=== PATIENT | male | born 1965 | race Caucasian/White ===

== ENCOUNTER 2018-01-21 09:19 | Outpatient (CLI) | payer OTHER | END 2018-01-21 09:20 | disposition home or self-care (01) | LOC: SC 09:19 | PROVIDERS: ATTEND Internal Medicine Pulmonary Disease | DX: G47.30 Sleep apnea, unspecified (principal); G47.10 Hypersomnia, unspecified; R06.83 Snoring; R51 Headache; G47.8 Other sleep disorders | CPT/HCPCS: 99203; 99212 ==

== ENCOUNTER 2018-03-12 19:13 | Outpatient (CLI) | payer OTHER | END 2018-03-12 19:14 | disposition home or self-care (01) | LOC: SC 19:13 | PROVIDERS: ATTEND Internal Medicine Pulmonary Disease | DX: G47.33 Obstructive sleep apnea (adult) (pediatric) (principal); G47.61 Periodic limb movement disorder | CPT/HCPCS: 95810 ==

== ENCOUNTER 2018-03-30 00:52 | Inpatient (IN) | payer OTHER ==
[2018-03-30] MEDS ORDERED: IPRATROPIUM/ALBUTEROL 3 ML NEB INH STA (01:06)
--- NOTE | 2018-03-30 01:06 | ED Physician Documentation ---
PD HPI DYSPNEA - Stated complaint Stated Complaint: SOA - Chief complaint Chief Complaint: Resp - History obtained from History obtained from: Patient - History of Present Illness Timing - onset: How many days ago (2) Timing - details: Gradual onset Pain level now: 3 Improved by: Rest Worsened by: Exertion Associated symptoms: Cough. No: Fever, Hemoptysis, Wheezing, Chest pain / discomfort, Palpitations, Diaphoresis, Bilateral edema, Unilateral edema Similar symptoms before: Diagnosis (asthma) Recently seen: Emergency Dept ([facility] yesterday) - Additional information Additional information: seen by his access analyst 2 days ago, had increase in daily prednisone to 30mg PO QD. Seen at [facility] ED last night (midnight) for dyspnea; says no testing was performed, given neb treatments and discharged (chart from seems to indicate he was also prescribed zithromax). He felt better during the day but tonight, again at midnight, suddenly worse (short of breath, cough). He also now has shaking chills. BIBA, given duoneb en route without improvement. Review of Systems Constitutional: reports: Fever (unaware of fever at home, but fever measured during ED triage), Chills, Fatigue Eyes: reports: Reviewed and negative Ears: reports: Reviewed and negative Nose: reports: Reviewed and negative Throat: reports: Reviewed and negative Cardiac: reports: Reviewed and negative Respiratory: reports: Dyspnea, Cough, Wheezing GI: reports: Reviewed and negative : denies: Dysuria, Frequency Skin: reports: Reviewed and negative Musculoskeletal: reports: Reviewed and negative Neurologic: reports: Generalized weakness. denies: Focal weakness, Numbness PD PAST MEDICAL HISTORY - Past Medical History Past Medical History: Yes Respiratory: Asthma - Past Surgical History Past Surgical History: No - Present Medications Home Medications: Ambulatory Orders Medication Instructions Recorded Confirmed Acetaminophen [Tylenol] 650 mg PO Q4HR PRN 03/30/18 03/30/18 Albuterol Sulfate [Proair Hfa 03/30/18 Inhaler] Beclomethasone 40 Mcg [Qvar 40] 03/30/18 Calcium Citrate 600 mg PO DAILY 03/30/18 03/30/18 Cholecalciferol (Vitamin D3) 1 tab PO DAILY 03/30/18 03/30/18 [Vitamin D3] Fexofenadine HCl 90 mg PO DAILY 03/30/18 03/30/18 Fluticasone [Flonase] 03/30/18 Ipratropium [place] 03/30/18 Mometasone/Formoterol [Dulera 200 03/30/18 Mcg/5 Mcg Inhaler] Montelukast [Singulair] 10 mg PO DAILY 03/30/18 03/30/18 Naproxen 1 tab PO Q12H PRN 03/30/18 03/30/18 Telmisartan [Micardis] 03/30/18 Terbinafine [Lamisil] 03/30/18 Tiotropium [place] [Spiriva] 1 cap PO DAILY 03/30/18 03/30/18 predniSONE [Prednisone] 18 mg PO 03/30/18 raNITIdine [Zantac] 1 tab PO DAILY 03/30/18 03/30/18 - Allergies Allergies/Adverse Reactions: Allergies Allergy/AdvReac Type Severity Reaction Status Date / Time aspirin Allergy Unknown Verified 03/30/18 01:00 ibuprofen AdvReac Respiratory Verified 03/30/18 02:46 - Living Situation Living Situation: reports: With spouse/s.o. Living Arrangement: reports: At home - Social History Does the pt smoke?: No PD ED PE NORMAL - Vitals Vital signs reviewed: Yes - General General: Alert and oriented X 3, Well developed/nourished, Other (dyspneic, anxious) - HEENT HEENT: Moist mucous membranes - Neck Neck: Supple, no meningeal sign - Cardiac Cardiac: No murmur - Abdomen Abdomen: Soft, Non tender - Back Back: No CVA TTP - Derm Derm: Normal color, Warm and dry - Extremities Extremities: Other (mild BLE pitting edema) - Neuro Neuro: Alert and oriented X 3 PD ED PE EXPANDED - Cardiac Cardiac: Tachy, Regular Rhythm - Respiratory Respiratory: Rhonchi (bilateral bases) Results - Vitals Vitals: Vital Signs - 24 hr 03/30/18 03/30/18 03/30/18 00:56 01:01 01:14 Temperature 37.0 C 39.1 C H Heart Rate 161 H 160 H 162 H Respiratory 28 H 20 24 Rate Blood Pressure 171/87 H 167/89 H O2 Saturation 96 97 03/30/18 03/30/18 01:33 02:17 Temperature 39.9 C H Heart Rate 163 H 151 H Respiratory 26 H 28 H Rate Blood Pressure 116/69 139/74 H O2 Saturation 95 99 Oxygen O2 Source Nasal cannula Oxygen Flow Rate 2 - EKG (time done) No standard instances Rate: Rate (enter#) Rhythm: Sinus tachycardia (162) [place]: Normal Intervals: Normal HI QRS: Normal Ischemia: Normal ST segments - Labs Labs: Laboratory Tests 03/30/18 03/30/18 03/30/18 01:17 01:17 01:17 WBC 13.3 H RBC 4.78 Hgb 14.4 Hct 43.1 MCV 90.2 MCH 30.1 MCHC 33.4 RDW 13.4 Plt Count 279 MPV 7.2 L Neut # (Auto) 11.7 H Lymph # (Auto) 1.1 L [place] # (Auto) 0.4 Eos # (Auto) 0.0 Baso # (Auto) 0.1 Absolute Nucleated RBC 0.00 Nucleated RBC % 0.0 D-Dimer Sodium 135 Potassium 3.7 Chloride 98 L Carbon Dioxide 27 Anion Gap 10.0 BUN 15 Creatinine 1.0 Estimated GFR (MDRD) 78 L Glucose 118 H Lactic Acid Calcium 9.2 Troponin I < 0.04 Urine Color Urine Clarity Urine pH Ur Specific [place] Urine Protein Urine Glucose (UA) Urine Ketones Urine Occult Blood Urine Nitrite Urine Bilirubin Urine Urobilinogen Ur Leukocyte Esterase Urine RBC Urine WBC Ur Squamous Epith Cells Urine Bacteria Ur Microscopic Review Urine Culture Comments Influenza A (Rapid) Influenza B (Rapid) 03/30/18 03/30/18 03/30/18 01:17 01:17 01:29 WBC RBC Hgb Hct MCV MCH MCHC RDW Plt Count MPV Neut # (Auto) Lymph # (Auto) [place] # (Auto) Eos # (Auto) Baso # (Auto) Absolute Nucleated RBC Nucleated RBC % D-Dimer < 200.0 L Sodium Potassium Chloride Carbon Dioxide Anion Gap BUN Creatinine Estimated GFR (MDRD) Glucose Lactic Acid 2.3 H Calcium Troponin I Urine Color Urine Clarity Urine pH Ur Specific [place] Urine Protein Urine Glucose (UA) Urine Ketones Urine Occult Blood Urine Nitrite Urine Bilirubin Urine Urobilinogen Ur Leukocyte Esterase Urine RBC Urine WBC Ur Squamous Epith Cells Urine Bacteria Ur Microscopic Review Urine Culture Comments Influenza A (Rapid) Negative Influenza B (Rapid) Negative 03/30/18 01:56 WBC RBC Hgb Hct MCV MCH MCHC RDW Plt Count MPV Neut # (Auto) Lymph # (Auto) [place] # (Auto) Eos # (Auto) Baso # (Auto) Absolute Nucleated RBC Nucleated RBC % D-Dimer Sodium Potassium Chloride Carbon Dioxide Anion Gap BUN Creatinine Estimated GFR (MDRD) Glucose Lactic Acid Calcium Troponin I Urine Color YELLOW Urine Clarity CLEAR Urine pH 5.5 Ur Specific [place] 1.025 Urine Protein TRACE Urine Glucose (UA) NEGATIVE Urine Ketones NEGATIVE Urine Occult Blood SMALL H Urine Nitrite NEGATIVE Urine Bilirubin NEGATIVE Urine Urobilinogen 0.2 (NORMAL) Ur Leukocyte Esterase NEGATIVE Urine RBC 0-5 Urine WBC 0-3 Ur Squamous Epith Cells NONE SEEN Urine Bacteria None Seen Ur Microscopic Review INDICATED Urine Culture Comments NOT INDICATED Influenza A (Rapid) Influenza B (Rapid) - Rads (name of study) chest xray Radiology: Prelim report reviewed, See rad report PD MEDICAL DECISION MAKING - ED course Complexity details: reviewed results, re-evaluated patient, considered differential, d/w patient Departure - Departure Disposition: 66 [facility] DC/Xfer Clinical Impression: Bilateral pneumonia Qualifiers: Pneumonia type: due to unspecified organism Lung location: lower lobe of lung Qualified Code(s): J18.1 - Lobar pneumonia, unspecified organism Condition: Stable Discharge Date/Time: 03/30/18 03:28
[2018-03-30] MEDS ORDERED: DEXAMETHASONE 10 MG/ML VIAL IVP STA (01:20)
[2018-03-30] MEDS ORDERED: ACETAMINOPHEN 325 MG TABLET PO STA (01:21)
[2018-03-30 01:28] LABS: BASOPHILS # (AUTO) 0.1 10^3/uL (0.0-0.1); BASOPHILS % (AUTO) 0.7 %; EOSINOPHILS % (AUTO) 0.1 %; HGB - HEMOGLOBIN 14.4 g/dL (14.0-18.0); LYMPHOCYTES # (AUTO) 1.1 10^3/uL (1.5-3.5); LYMPHOCYTES % (AUTO) 8.1 %; MEAN CORPUSCULAR HEMOGLOBIN 30.1 pg (27.0-31.0); MEAN CORPUSCULAR HGB CONC 33.4 g/dL (32.0-36.0); MEAN CORPUSCULAR VOLUME 90.2 fL (80.0-94.0); MEAN PLATELET VOLUME 7.2 fL (7.4-11.4); MONOCYTES # (AUTO) 0.4 10^3/uL (0.0-1.0); MONOCYTES % (AUTO) 3.1 %; NEUTROPHILS # (AUTO) 11.7 10^3/uL (1.5-6.6); PLT - PLATELET COUNT 279 10^3/uL (130-450); RED BLOOD COUNT 4.78 10^6/uL (4.70-6.10); RED CELL DISTRIBUTION WIDTH 13.4 % (12.0-15.0); WHITE BLOOD COUNT 13.3 x10^3/uL (4.8-10.8)
[2018-03-30 01:35] LABS: CALCIUM 9.2 mg/dL (8.5-10.3)
[2018-03-30] MEDS ORDERED: SODIUM CHLORIDE 0.9% 1,000 ML IV ONE (01:59)
[2018-03-30 02:07] LABS: BILIRUBIN,URINE NEGATIVE (NEGATIVE); GLUCOSE, URINE (UA) NEGATIVE (NEGATIVE); KETONES,URINE (UA) NEGATIVE (NEGATIVE); LEUKOCYTE ESTERASE, URINE NEGATIVE (NEGATIVE); NITRITE,URINE NEGATIVE (NEGATIVE); OCCULT BLOOD,URINE SMALL (NEGATIVE); PH,URINE 5.5 PH (5.0-7.5); PROTEIN,URINE TRACE mg/dL (NEGATIVE); UROBILINOGEN,URINE 0.2 (NORMAL) E.U./dL (NORMAL)
--- NOTE | 2018-03-30 02:10 | XRAY Preliminary Report ---
Exam: XR CHEST 2 VIEW X-RAY IMPRESSION: Bibasilar pneumonia. [facility] SITE ID: [id number]
--- NOTE | 2018-03-30 02:10 | XRAY Report ---
EXAM: CHEST RADIOGRAPHY EXAM DATE: 03/30/2018 01:56 AM. CLINICAL HISTORY: Cough, fever, dyspnea. COMPARISON: None. TECHNIQUE: 2 views. FINDINGS: Lungs/Pleura: Bibasilar retrocardiac airspace opacities. No pneumothorax or effusion. Mediastinum: Heart and mediastinal contours are unremarkable. Other: None. IMPRESSION: Bibasilar pneumonia. [facility] Referring Provider Line: [phone] SITE ID: [id number]
[2018-03-30] MEDS ORDERED: oxyCODONE 5 MG TABLET PO PRN ×2 (02:25)
[2018-03-30] MEDS ORDERED: ONDANSETRON 4 MG/2 ML VIAL IVP PRN (02:25)
[2018-03-30] MEDS ORDERED: ZOLPIDEM 5 MG TABLET PO PRN (02:25)
[2018-03-30] MEDS ORDERED: IBUPROFEN 600 MG TABLET PO PRN (02:25)
[2018-03-30] MEDS ORDERED: cefTRIAXone 1 GM in SODIUM CHLORIDE 0.9% MINIBAG 100 ML IV STA (02:25)
[2018-03-30] MEDS ORDERED: PROCHLORPERAZINE 10 MG/2 ML VIAL IVP PRN (02:25)
[2018-03-30] MEDS ORDERED: AZITHROMYCIN INJ 500 MG in SODIUM CHLORIDE 0.9% 250 ML IV STA (02:25)
[2018-03-30] MEDS ORDERED: IBUPROFEN 600 MG TABLET PO STA (02:29)
[2018-03-30 02:32] LABS: CLARITY,URINE CLEAR (CLEAR)
[2018-03-30 02:33] LABS: BACTERIA,URINE None Seen /HPF (None Seen); RBC,URINE 0-5 /HPF (0-5); SQUAMOUS EPITHELIAL CELL,UR NONE SEEN (<= Few)
--- NOTE | 2018-03-30 02:37 | HISTORY & PHYSICAL EXAMINATION ---
Chief Complaint - Chief Complaint Chief Complaint: Shortness of breath History of Present Illness - Admitted From Admitted From:: Emergency Department - History Obtained From Records Reviewed: Yes History obtained from: Patient and Emergency Room Records Exam Limitations: None - History of Present Illness HPI Comment/Other: Patient is a 52-year-old gentleman with a past medical history significant for severe persistent asthma with daily symptoms on long-term prednisone for the past 6 months, GERD and hypertension who presented to the emergency department with a chief complaint of shortness of breath. The patient states that he has shortness of breath and asthma symptoms every single day which require him to take multiple breathing treatments a day. He states however 2 days ago he noticed his shortness of breath was significantly worse. He also states that he was having cough with sputum production. He states that 2 days ago he coughed up a large glob of yellowish sputum. He also states that on that day he began having chills and fever. He spoke with his home and family living professor and increased his daily prednisone dose from 20 mg to 30 mg. He states that this did not help improve his symptoms in fact he states that his cough, fever and shortness of breath continued to worsen over the next day. He states that he was also wheezing and continued to have chills. He states that the following day he went to the emergency room at [facility] and there he was given 3 nebulizer treatments with which she did feel better. He states that he did not tell the emergency room doctor that he was having fevers and chills and never underwent any chest x-ray or lab work. The patient states that after returning home he seemed to feel better but then throughout the day today his symptoms became significantly worse. He states that his shortness of breath was so severe that he was having trouble breathing just at rest. He states that he had to take multiple breathing treatments throughout the day and was still having no improvement in his symptoms. He states he continued to have uncontrolled chills tonight and finally his girlfriend brought him back to the emergency department here at [facility]. The patient also admits to chest pain with deep breathing and coughing. The patient denies any recent travel or long trips. The patient denies any orthopnea, PND or increased lower extremity swelling. Patient denies any headache, blurred vision, runny nose, sore throat, nasal congestion, difficulty swallowing, palpitations, abdominal pain, nausea, vomiting, diarrhea, constipation, urinary urgency, urinary frequency, dysuria, joint pain, muscle aches, back pain, neck stiffness, recent unintentional weight loss, changes in his appetite, or any focal neurologic deficits. Patient also denies any polyuria, polydipsia, hair loss or skin changes. On presentation to the emergency department the patient was severely tachycardic with a heart rate of 161 and appeared to be in respiratory distress with a respiratory rate of 28 but was saturating well on room air. The patient appeared quite ill and was having chills on presentation his repeat temperature was 39.1 and he continued to be tachycardic in the 160s but maintained a good blood pressure. The patient underwent routine lab work which revealed a leukocytosis of 13.3, a negative d-dimer and a lactic acid of 2.3. The patient' s influenza swab was negative. The patient's troponin was negative and EKG showed sinus tachycardia. The patient underwent a chest x-ray which showed bibasilar pneumonia. Given the patient's severe asthma he was given nebulizer treatments in the emergency department with only mild improvement. The patient continued to remain febrile and was septic therefore he was admitted to the medical albarran for sepsis secondary to pneumonia. History - Past Medical History Cardiovascular: reports: Hypertension Respiratory: reports: Asthma Neuro: reports: None Endocrine/Autoimmune: reports: None GI: reports: GERD : reports: None HEENT: reports: None Psych: reports: None Musculoskeletal: reports: None MRSA Hx?: No Other Past Medical History: Obesity - Past Surgical History General: reports: Colonoscopy - Family & Social History Family History: Mother: Alive and Well, Asthma Family History Comment/Other: Patient's son has irritable bowel syndrome Living arrangement: At home Living Situation: Alone Social History Notes: Patient lives in [place] and his girlfriend lives in [place]. He is was to his for 28 years but he states that she is a drug addict. He has 2 children with his ex-. 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 He has never smoked and occasionally drinks alcohol but denies any illicit drug use. - POLST Patient has POLST: No POLST Status: Full Code Meds/Allgy - Home Medications Home Medications: Ambulatory Orders Medication Instructions Recorded Confirmed Acetaminophen [Tylenol] 650 mg PO Q4HR PRN 03/30/18 03/30/18 Albuterol Sulfate [Proair Hfa 03/30/18 Inhaler] Beclomethasone 40 Mcg [Qvar 40] 03/30/18 Calcium Citrate 600 mg PO DAILY 03/30/18 03/30/18 Cholecalciferol (Vitamin D3) 1 tab PO DAILY 03/30/18 03/30/18 [Vitamin D3] Fexofenadine HCl 90 mg PO DAILY 03/30/18 03/30/18 Fluticasone [Flonase] 03/30/18 Ipratropium [place] 03/30/18 Mometasone/Formoterol [Dulera 200 03/30/18 Mcg/5 Mcg Inhaler] Montelukast [Singulair] 10 mg PO DAILY 03/30/18 03/30/18 Naproxen 1 tab PO Q12H PRN 03/30/18 03/30/18 Telmisartan [Micardis] 03/30/18 Terbinafine [Lamisil] 03/30/18 Tiotropium [place] [Spiriva] 1 cap PO DAILY 03/30/18 03/30/18 predniSONE [Prednisone] 18 mg PO 03/30/18 raNITIdine [Zantac] 1 tab PO DAILY 03/30/18 03/30/18 - Allergies Allergies/Adverse Reactions: Allergies Allergy/AdvReac Type Severity Reaction Status Date / Time aspirin Allergy Unknown Verified 03/30/18 01:00 ibuprofen AdvReac Respiratory Verified 03/30/18 02:46 Review of Systems - Other Findings Other Findings: A comprehensive review of systems was performed the pertinent positives and negatives are stated above in the HPI and the remainder of the review of systems is negative. Exam - Vital Signs Reviewed Vital Signs: Yes Vital Signs: Vital Signs x48h Temp Pulse Resp BP Pulse Ox 03/30/18 02:17 39.9 C H 151 H 28 H 139/74 H 99 03/30/18 01:33 163 H 26 H 116/69 95 03/30/18 01:14 162 H 24 03/30/18 01:01 39.1 C H 160 H 20 167/89 H 97 03/30/18 00:56 37.0 C 161 H 28 H 171/87 H 96 - Physical Exam General Appearance: positive: Alert, Moderate distress (Ill-appearing, respiratory distress, Use of accessory muscles of breathing), Anxious Eyes Bilateral: positive: Normal inspection, PERRL, EOMI, No lid inflammation, Conjunctivae nml, No scleral icterus ENT: positive: ENT inspection nml, Pharynx nml, Dry mucous membranes. negative : Purulent nasal drainage, Pharyngeal erythema, Oral lesions Neck: positive: Nml inspection, Thyroid nml, No JVD, Trachea midline. negative : Thyromegaly, Lymphadenopathy (R), Lymphadenopathy (L), Stiff neck, Carotid bruit, Tracheal deviation Respiratory: positive: Chest non-tender, Wheezes (Diffuse expiratory), Rhonchi ( Bibasilar), Other (Very tight, use of accessory muscles of breathing, respiratory distress.) Cardiovascular: positive: No murmur, No gallop, Tachycardia Peripheral Pulses: positive: 2+, 1+ Abdomen: positive: Non-tender, No organomegaly, Nml bowel sounds, No distention. negative: Guarding, Rebound, Hepatomegaly, Splenomegaly Back: positive: Nml inspection. negative: CVA tenderness (R), CVA tenderness (L ) Skin: positive: Color nml, No rash, Warm, Dry, Diaphoresis. negative: Cyanosis , Pallor Extremities: positive: Non-tender, Full ROM, Nml appearance, No pedal edema Neurologic/Psychiatric: positive: Oriented x3, CN's nml (2-12), Motor nml, Sensation nml, Mood/affect nml Conclusion/Plan - Problem List (1) Sepsis Conclusion/Plan: On presentation to the emergency department the patient is febrile with temperature up to 39.9, tachycardic with heart rate in the 160s, with leukocytosis with WBC of 13.3, tachypneic with respiratory rate greater than 25 and has lactic acid of 2.3. Source of patient's sepsis appears to be pneumonia as the patient has bibasilar pneumonia on chest x-ray. Plan: IV antibiotics to treat pneumonia ceftriaxone and azithromycin IV fluids Recheck lactic acid Follow-up blood cultures Qualifiers: Sepsis type: sepsis due to unspecified organism Qualified Code(s): A41.9 - Sepsis, unspecified organism (2) Bilateral pneumonia Conclusion/Plan: Patient presented to the emergency department with sepsis and was found to have bilateral pneumonia. Patient is not hypoxic but did appear to be in respiratory distress and does have asthma exacerbation. Plan: IV antibiotics with ceftriaxone and azithromycin Follow-up blood cultures Treat asthma exacerbation with nebs, steroids and oxygen as needed IV fluids Qualifiers: Pneumonia type: due to unspecified organism Lung location: lower lobe of lung Qualified Code(s): J18.1 - Lobar pneumonia, unspecified organism (3) Asthma exacerbation Conclusion/Plan: Patient has history of severe persistent asthma. He has daily symptoms and has been on daily prednisone for the last 6 months. He presented with sepsis and was found to have bilateral pneumonia he appears to also have asthma exacerbation. The patient was very tight on initial examination and did have some improvement with nebs. Patient is also very tachycardic and would likely benefit from Xopenex instead of albuterol. Patient was taking 30 mg of prednisone at home but will be switched to IV steroids while hospitalized. Plan: Xopenex every 4 hours as needed and 4 times daily 1 day Solu-Medrol 40 mg 3 times daily Azithromycin IV Supplemental oxygen Formoterol via neb twice daily Budesonide via neb twice daily Qualifiers: Asthma severity: severe Asthma persistence: persistent Qualified Code(s) : J45.51 - Severe persistent asthma with (acute) exacerbation (4) Hypertension Conclusion/Plan: Patient was hypertensive on presentation likely secondary to him being in distress. Patient's blood pressure did improve while he was in the emergency department. We will continue the patient's home dose of Micardis Monitor blood pressure closely consider adding a beta-ya given the patient' s severe tachycardia Qualifiers: Hypertension type: essential hypertension Qualified Code(s): I10 - Essential (primary) hypertension (5) GERD (gastroesophageal reflux disease) Conclusion/Plan: Stable Continue patient's home dose of ranitidine Qualifiers: Esophagitis presence: without esophagitis Qualified Code(s): K21.9 - Gastro -esophageal reflux disease without esophagitis - Lab Results Lab results reviewed: Yes Fish Bones: 03/30/18 01:17 03/30/18 01:17 Other Lab Results: Laboratory Results WBC 13.3 x10^3/uL (4.8-10.8) H 03/30/18 01:17 RBC 4.78 10^6/uL (4.70-6.10) 03/30/18 01:17 Hgb 14.4 g/dL (14.0-18.0) 03/30/18 01:17 Hct 43.1 % (42.0-52.0) 03/30/18 01:17 MCV 90.2 fL (80.0-94.0) 03/30/18 01:17 MCH 30.1 pg (27.0-31.0) 03/30/18 01:17 MCHC 33.4 g/dL (32.0-36.0) 03/30/18 01:17 RDW 13.4 % (12.0-15.0) 03/30/18 01:17 Plt Count 279 10^3/uL (130-450) 03/30/18 01:17 MPV 7.2 fL (7.4-11.4) L 03/30/18 01:17 Neut # (Auto) 11.7 10^3/uL (1.5-6.6) H 03/30/18 01:17 Lymph # (Auto) 1.1 10^3/uL (1.5-3.5) L 03/30/18 01:17 [place] # (Auto) 0.4 10^3/uL (0.0-1.0) 03/30/18 01:17 Eos # (Auto) 0.0 10^3/uL (0.0-0.7) 03/30/18 01:17 Baso # (Auto) 0.1 10^3/uL (0.0-0.1) 03/30/18 01:17 Absolute Nucleated RBC 0.00 x10^3/uL 03/30/18 01:17 Nucleated RBC % 0.0 /100WBC 03/30/18 01:17 D-Dimer < 200.0 ng/mL (200.0-255.0) L 03/30/18 01:17 Sodium 135 mmol/L (135-145) 03/30/18 01:17 Potassium 3.7 mmol/L (3.5-5.0) 03/30/18 01:17 Chloride 98 mmol/L (101-111) L 03/30/18 01:17 Carbon Dioxide 27 mmol/L (21-32) 03/30/18 01:17 Anion Gap 10.0 (6-13) 03/30/18 01:17 BUN 15 mg/dL (6-20) 03/30/18 01:17 Creatinine 1.0 mg/dL (0.6-1.2) 03/30/18 01:17 Estimated GFR (MDRD) 78 (>89) L 03/30/18 01:17 Glucose 118 mg/dL (70-100) H 03/30/18 01:17 Lactic Acid 2.3 mmol/L (0.5-2.2) H 03/30/18 01:17 Calcium 9.2 mg/dL (8.5-10.3) 03/30/18 01:17 Troponin I < 0.04 ng/mL (<0.49) 03/30/18 01:17 Urine Color YELLOW 03/30/18 01:56 Urine Clarity CLEAR (CLEAR) 03/30/18 01:56 Urine pH 5.5 PH (5.0-7.5) 03/30/18 01:56 Ur Specific [place] 1.025 (1.002-1.030) 03/30/18 01:56 Urine Protein TRACE mg/dL (NEGATIVE) 03/30/18 01:56 Urine Glucose (UA) NEGATIVE mg/dL (NEGATIVE) 03/30/18 01:56 Urine Ketones NEGATIVE mg/dL (NEGATIVE) 03/30/18 01:56 Urine Occult Blood SMALL (NEGATIVE) H 03/30/18 01:56 Urine Nitrite NEGATIVE (NEGATIVE) 03/30/18 01:56 Urine Bilirubin NEGATIVE (NEGATIVE) 03/30/18 01:56 Urine Urobilinogen 0.2 (NORMAL) E.U./dL (NORMAL) 03/30/18 01:56 Ur Leukocyte Esterase NEGATIVE (NEGATIVE) 03/30/18 01:56 Urine RBC 0-5 /HPF (0-5) 03/30/18 01:56 Urine WBC 0-3 /HPF (0-3) 03/30/18 01:56 Ur Squamous Epith Cells NONE SEEN (<= Few) 03/30/18 01:56 Urine Bacteria None Seen /HPF (None Seen) 03/30/18 01:56 Ur Microscopic Review INDICATED 03/30/18 01:56 Urine Culture Comments NOT INDICATED 03/30/18 01:56 Influenza A (Rapid) Negative (Negative) 03/30/18 01:29 Influenza B (Rapid) Negative (Negative) 03/30/18 01:29 - Diagnostic Imaging Results Diagnostic Imaging Results: positive: Final report reviewed Diagnostic Imaging Results Comments: Chest x-ray Impression: Bibasilar pneumonia - EKG Results EKG Interpreted Independently: Yes EKG Findings: Sinus tachycardia Core Measures - Anticipated LOS I expect patient to be DC'd or transferred within 96 hours.: Yes - DVT/VTE - Prophylaxis VTE/DVT Prophylaxis med ordered at admit?: Yes
[2018-03-30] MEDS ORDERED: methylPREDNISolone SUCCINATE 40 MG/ML VIAL IVP SCH (03:00)
[2018-03-30] MEDS ORDERED: NAPROXEN 250 MG TABLET PO PRN (03:17)
[2018-03-30] MEDS: LEVALBUTEROL 1.25 MG/3 ML NEB INH PRN ×2 (03:30→05:07)
[2018-03-30] MEDS: SODIUM CHLORIDE 0.9% 1,000 ML IV SCH ×3 (04:06→17:09)
[2018-03-30] MEDS ORDERED: cefTRIAXone 1 GM in SODIUM CHLORIDE 0.9% MINIBAG 100 ML IV SCH (04:42)
[2018-03-30] MEDS ORDERED: LEVALBUTEROL 1.25 MG/3 ML NEB INH STA (05:03)
[2018-03-30] MEDS: BENZONATATE 100 MG CAPSULE PO PRN (05:04)
[2018-03-30] MEDS: BUDESONIDE 0.5 MG/2 ML NEB INH SCH ×3 (05:07→17:51)
[2018-03-30] MEDS: FORMOTEROL FUMARATE NEB 20 MCG/2 ML INH SCH ×3 (05:07→17:51)
[2018-03-30 06:14] LABS: BASOPHILS % (AUTO) 0.3 %; HGB - HEMOGLOBIN 12.7 g/dL (14.0-18.0); LYMPHOCYTES % (AUTO) 1.5 %; MEAN CORPUSCULAR HEMOGLOBIN 29.3 pg (27.0-31.0); MEAN CORPUSCULAR HGB CONC 32.3 g/dL (32.0-36.0); MEAN CORPUSCULAR VOLUME 90.7 fL (80.0-94.0); MEAN PLATELET VOLUME 7.3 fL (7.4-11.4); MONOCYTES % (AUTO) 4.4 %; NEUTROPHILS % (AUTO) 93.8 %; PLT - PLATELET COUNT 267 10^3/uL (130-450); RED BLOOD COUNT 4.35 10^6/uL (4.70-6.10); RED CELL DISTRIBUTION WIDTH 13.3 % (12.0-15.0); WHITE BLOOD COUNT 18.3 x10^3/uL (4.8-10.8)
[2018-03-30 06:25] LABS: ABNORMAL LYMPHS % (MANUAL) 0 %; LYMPHOCYTES % (MANUAL) 0 %
[2018-03-30 06:37] LABS: CALCIUM 8.5 mg/dL (8.5-10.3); CREATININE 0.9 mg/dL (0.6-1.2)
[2018-03-30 06:47] LABS: BAND NEUTROPHILS % (MANUAL) 6 %; LYMPHOCYTES # (MANUAL) 0.2 10^3/uL (1.5-3.5); MONOCYTES # (MANUAL) 0.7 10^3/uL (0.0-1.0); NEUTROPHILS # (MANUAL) 17.4 10^3/uL (1.5-6.6); NEUTROPHILS % (MANUAL) 89 %
[2018-03-30 06:48] LABS: DIFFERENTIAL COMMENT MANUAL DIFFERENTIAL; PLATELET ESTIMATE, MANUAL NORMAL (130-450,000) (NORMAL); PLATELET MORPHOLOGY NORMAL APPEARANCE (NORMAL); RBC MORPHOLOGY (MULTIPLE) NORMAL APPEARANCE (NORMAL)
[2018-03-30] MEDS: MONTELUKAST 10 MG TABLET PO SCH (08:52)
[2018-03-30] MEDS: CALCIUM CITRATE 250 MG TABLET PO SCH (08:52)
[2018-03-30] MEDS: ENOXAPARIN 40 MG/0.4 ML SYRINGE SUBQ SCH (08:52)
[2018-03-30] MEDS: FEXOFENADINE 60 MG TABLET PO SCH (08:53)
[2018-03-30] MEDS: CHOLECALCIFEROL 1,000 UNIT TABLET PO SCH (08:53)
[2018-03-30] MEDS: FAMOTIDINE 20 MG TABLET PO SCH (08:56)
[2018-03-30] MEDS: POLYETHYLENE GLYCOL 3350 17 GM PACKET PO SCH ×2 (08:57→10:39)
[2018-03-30] MEDS: SODIUM CHLORIDE FLUSH 0.9% 10 ML SYRINGE IVP SCH ×3 (08:57→21:13)
[2018-03-30] MEDS ORDERED: cefTRIAXone 2 GM in SODIUM CHLORIDE 0.9% MINIBAG 100 ML IV SCH (09:00)
[2018-03-30] MEDS ORDERED: AZITHROMYCIN INJ 500 MG in SODIUM CHLORIDE 0.9% 250 ML IV SCH (09:00)
[2018-03-30] MEDS: LEVALBUTEROL 1.25 MG/3 ML NEB INH SCH ×4 (09:30→21:57)
[2018-03-30] MEDS: ACETAMINOPHEN 325 MG TABLET PO PRN ×3 (10:52→21:33)
--- NOTE | 2018-03-30 13:23 | PROVIDER PROGRESS NOTE ---
Subjective - Prog Note Date Prog Note Date: 03/30/18 Prog Note Time: 13:30 - Subjective Pt reports feeling: Improved Subjective: He said that he was so angry and frightened last night. He felt like he was dying and no one was paying attention to him. So he apologizes for how cranky he was to the handkerchief sample clerk as well as to some of the nurses there. His girlfriend is at his bedside. And remarks that he is much better today than he was yesterday. He says that he is much less tight in his chest. He is still wheezing, but able to bring up copious amounts of clear phlegm that he was not able to do yesterday. Current Medications - Current Medications Current Medications: Active Medications Acetaminophen (Tylenol) 650 mg PO Q4HR PRN PRN Reason: Pain 1 to 4 Last Admin: 03/30/18 10:52 Dose: 650 mg Benzonatate (Tessalon) 100 mg PO TID PRN PRN Reason: Cough Last Admin: 03/30/18 05:04 Dose: 100 mg Budesonide (Pulmicort) 0.5 mg INH RTBID [facility] Last Admin: 03/30/18 09:26 Dose: Not Given Calcium Citrate () 500 mg PO DAILY [facility] Last Admin: 03/30/18 08:52 Dose: 500 mg Cholecalciferol (Vitamin D3) 2,000 unit PO DAILY [facility] Last Admin: 03/30/18 08:53 Dose: 2,000 unit Enoxaparin Sodium (Lovenox) 40 mg SUBQ DAILY [facility] Last Admin: 03/30/18 08:52 Dose: 40 mg Famotidine (Pepcid) 20 mg PO DAILY [facility] Last Admin: 03/30/18 08:56 Dose: 20 mg Fexofenadine HCl (Emely) 90 mg PO DAILY [facility] Last Admin: 03/30/18 08:53 Dose: 90 mg Formoterol Fumarate (Perforomist) 20 mcg INH RTBID@1100,2300 [facility] Last Admin: 03/30/18 09:26 Dose: Not Given Sodium Chloride (Normal Saline 0.9%) 1,000 mls @ 150 mls/hr IV .Q6H40M [facility] Last Admin: 03/30/18 10:44 Dose: 150 mls/hr Azithromycin 500 mg/ Sodium (Chloride) 250 mls @ 250 mls/hr IV HS [facility] Ceftriaxone Sodium 2 gm/ (Sodium Chloride) 100 mls @ 200 mls/hr IV DAILY@2200 [facility] Levalbuterol HCl (Xopenex) 1.25 mg INH Q4H PRN PRN Reason: Shortness of Air/Wheezing Last Admin: 03/30/18 03:30 Dose: 1.25 mg Levalbuterol HCl (Xopenex) 1.25 mg INH QID [facility] Stop: 03/31/18 08:59 Last Admin: 03/30/18 09:30 Dose: 1.25 mg Methylprednisolone (Solu-Medrol (40mg Vial)) 40 mg IVP TID [facility] Montelukast Sodium (Singulair) 10 mg PO DAILY [facility] Last Admin: 03/30/18 08:52 Dose: 10 mg Naproxen (Naprosyn) 250 mg PO TID PRN PRN Reason: PAIN Ondansetron HCl (Zofran Inj) 4 mg IVP Q6HR PRN PRN Reason: Nausea / Vomiting Oxycodone HCl (Roxicodone) 5 mg PO Q4HR PRN PRN Reason: Pain 5 to 7 Oxycodone HCl (Roxicodone) 10 mg PO Q4HR PRN PRN Reason: Pain 8 to 10 Polyethylene Glycol (Miralax) 17 gm PO DAILY [facility] Last Admin: 03/30/18 10:39 Dose: Not Given Prochlorperazine Edisylate (Compazine Inj) 10 mg IVP Q6HR PRN PRN Reason: Nausea / Vomiting Sodium Chloride (Normal Saline Flush 0.9%) 10 ml IVP PRN PRN PRN Reason: NEEDED PER PROVIDER ORDERS Sodium Chloride (Normal Saline Flush 0.9%) 10 ml IVP 0100,0900,1700 [facility] Last Admin: 03/30/18 08:57 Dose: Not Given Zolpidem Tartrate (Ambien) 5 mg PO QPM PRN PRN Reason: Insomnia Acetaminophen [Tylenol] 650 mg PO Q4HR PRN 03/30/18 Albuterol Sulfate [Proair Hfa Inhaler] 1 - 2 puffs INH Q4H PRN 03/30/18 Beclomethasone 80 Mcg [Qvar 80] 2 puffs INH BID 03/30/18 Calcium Citrate 600 mg PO DAILY 06/02/18 Cholecalciferol (Vitamin D3) [Vitamin D3] 2,000 tab PO DAILY 03/30/18 Fexofenadine HCl 90 mg PO DAILY 03/30/18 Mometasone/Formoterol [Dulera 200 Mcg/5 Mcg Inhaler] 2 puffs INH BID 03/30/18 Montelukast [Singulair] 10 mg PO QPM 03/30/18 Naproxen 250 mg PO Q12H PRN 03/30/18 Omeprazole [PriLOSEC] 20 mg PO QDAC 03/30/18 Telmisartan [Micardis] 40 mg PO DAILY 03/30/18 Tiotropium [place] [Spiriva] 1 puffs INH DAILY 03/30/18 predniSONE [Deltasone] 20 mg PO DAILYWM 03/30/18 raNITIdine [Zantac] 150 tab PO BID 03/30/18 Objective - Vital Signs/Intake & Output Reviewed Vital Signs: Yes Vital Signs: Vital Signs x48h Temp Pulse Pulse Resp BP Pulse Ox 03/30/18 09:32 128 H 18 03/30/18 08:00 36.6 C 114 H 18 122/68 98 03/30/18 06:15 37.2 C 118 H 18 127/78 97 Intake & Output: Intake & Output 03/27/18 03/28/18 03/29/18 03/30/18 23:59 23:59 23:59 23:59 Intake Total 3305 Output Total 1100 Balance 2205 - Objective General Appearance: positive: No acute distress, Alert, Other (Middle-aged white male who looks stated age, unshaven, cushingoid appearance, comfortable sitting in his reclining chair with his girlfriend at the bedside.) Eyes Bilateral: positive: PERRL, EOMI ENT: positive: No signs of dehydration Neck: positive: No JVD. negative: Stiff neck, Carotid bruit Respiratory: positive: Chest non-tender, No respiratory distress, Wheezes ( Scattered throughout all lung carney), Rhonchi (Very loose and wet). negative: Rales Cardiovascular: positive: Regular rate & rhythm, Tachycardia. negative: Systolic murmur, Gallop/S4, Friction rub Abdomen: positive: Non-tender, No organomegaly, Nml bowel sounds, No distention , Other (Protuberant, obese pannus) Skin: positive: Warm, Dry Extremities: positive: Non-tender, Full ROM, No pedal edema Neurologic/Psychiatric: positive: Oriented x3, CN's nml (2-12), Motor nml - Lab Results Fish Bones: 03/30/18 06:05 03/30/18 06:05 Other Labs: Lab Results x24hrs 03/30/18 03/30/18 03/30/18 Range/Units 06:05 06:05 06:05 WBC 18.3 H (4.8-10.8) x10^3/uL RBC 4.35 L (4.70-6.10) 10^6/uL Hgb 12.7 L (14.0-18.0) g/dL Hct 39.4 L (42.0-52.0) % MCV 90.7 (80.0-94.0) fL MCH 29.3 (27.0-31.0) pg MCHC 32.3 (32.0-36.0) g/dL RDW 13.3 (12.0-15.0) % Plt Count 267 (130-450) 10^3/uL MPV 7.3 L (7.4-11.4) fL Neut # (Auto) Not Reportable Lymph # (Auto) Not Reportable [place] # (Auto) Not Reportable Eos # (Auto) Not Reportable Baso # (Auto) Not Reportable Absolute Nucleated RBC Not Reportable Total Counted 100 Band Neuts % (Manual) 6 (0 - 10) % Reactive Lymphs % (Man) 1 % Abnorm Lymph % (Manual) 0 % Nucleated RBC % Not Reportable Neutrophils # (Manual) 17.4 H (1.5-6.6) 10^3/uL Lymphocytes # (Manual) 0.2 L (1.5-3.5) 10^3/uL Monocytes # (Manual) 0.7 (0.0-1.0) 10^3/uL Eosinophils # (Manual) 0.0 (0-0.7) 10^3/uL Basophils # (Manual) 0.0 (0-0.1) 10^3/uL Differential Comment MANUAL DIFFERENTIAL Platelet Estimate NORMAL (130-450,000) (NORMAL) Platelet Morphology NORMAL APPEARANCE (NORMAL) RBC Morph Micro Appear NORMAL APPEARANCE (NORMAL) Sodium 135 (135-145) mmol/L Potassium 4.0 (3.5-5.0) mmol/L Chloride 103 (101-111) mmol/L Carbon Dioxide 23 (21-32) mmol/L Anion Gap 9.0 (6-13) BUN 16 (6-20) mg/dL Creatinine 0.9 (0.6-1.2) mg/dL Estimated GFR (MDRD) 88 L (>89) Glucose 211 H (70-100) mg/dL Lactic Acid 1.3 (0.5-2.2) mmol/L Calcium 8.5 (8.5-10.3) mg/dL ABX Reporting Has patient been on IV antibiotics over the past 48 hours?: Yes Assessment/Plan - Problem List (1) Sepsis Impression: Resolved: fever has resolved, lactic acid is 1.3 but WBC is up to 18K and he is still tachycardic. On presentation to the emergency department the patient is febrile with temperature up to 39.9, tachycardic with heart rate in the 160s, with leukocytosis with WBC of 13.3, tachypneic with respiratory rate greater than 25 and has lactic acid of 2.3. Source of patient's sepsis appears to be pneumonia as the patient has bibasilar pneumonia on chest x-ray. Plan: IV antibiotics to treat pneumonia: ceftriaxone and azithromycin Day #2 IV fluids have been at 150. Now that tachycardia resolved. IV lock. Lactic acid level now nml Follow-up blood cultures. Received by not read yet. Qualifiers: Sepsis type: sepsis due to unspecified organism Qualified Code(s): A41.9 - Sepsis, unspecified organism (2) Bilateral pneumonia Conclusion/Plan: Patient presented to the emergency department with sepsis and was found to have bilateral pneumonia. Patient was not hypoxic but did appear to be in respiratory distress and did have asthma exacerbation. He feels much better. Now coughing up loose phlegm and chest not so tight. Plan: IV antibiotics with ceftriaxone and azithromycin, Day #2 Plan for 7-10 days total tx with change to po once cultures back. Follow-up blood cultures that have been received but not read. Continue to asthma exacerbation with nebs, steroids and oxygen as needed IV fluids Qualifiers: Pneumonia type: due to unspecified organism Lung location: lower lobe of lung Qualified Code(s): J18.1 - Lobar pneumonia, unspecified organism (3) Asthma exacerbation Conclusion/Plan: Patient has history of severe persistent asthma. He has daily symptoms and has been on daily prednisone for the last 6 months. He presented with sepsis and was found to have bilateral pneumonia he appears to also have asthma exacerbation. The patient was very tight on initial examination and did have some improvement with nebs. Patient is also very tachycardic and would likely benefit from Xopenex instead of albuterol. Patient was taking 30 mg of prednisone at home but will be switched to IV steroids while hospitalized. He states is is so much better this am inspite of continued wheezing. lungs looser but still tachycardic. no tachypnea and he is able to complete full sentences and gesticulte while talking without increased respiratory effort. Plan: Continue his current treatment of Xopenex every 4 hours as needed and 4 times daily 1 day Solu-Medrol 40 mg 3 times daily Azithromycin/Ceftriaxone IV Supplemental oxygen Formoterol via neb twice daily Budesonide via neb twice daily Qualifiers: Asthma severity: severe Asthma persistence: persistent Qualified Code(s) : J45.51 - Severe persistent asthma with (acute) exacerbation (4) Hypertension Conclusion/Plan: Patient was hypertensive on presentation likely secondary to him being in distress. Patient's blood pressure did improve while he was in the emergency department. This am he is 122-127 systolic. We will continue the patient's home dose of Micardis Monitor blood pressure closely consider adding a beta-ya given the patient' s severe tachycardia Qualifiers: Hypertension type: essential hypertension Qualified Code(s): I10 - Essential (primary) hypertension (5) GERD (gastroesophageal reflux disease) Conclusion/Plan: Stable Continue patient's home dose of ranitidine Qualifiers: Esophagitis presence: without esophagitis Qualified Code(s): K21.9 - Gastro -esophageal reflux disease without esophagitis
[2018-03-30] MEDS: methylPREDNISolone SUCCINATE 40 MG/ML VIAL IVP SCH ×2 (13:40→22:37)
[2018-03-30] MEDS: AZITHROMYCIN INJ 500 MG in SODIUM CHLORIDE 0.9% 250 ML IV SCH (21:33)
[2018-03-30] MEDS: cefTRIAXone 2 GM in SODIUM CHLORIDE 0.9% MINIBAG 100 ML IV SCH (22:37)
[2018-03-30] MEDS: SODIUM CHLORIDE FLUSH 0.9% 10 ML SYRINGE IVP PRN (22:37)
[2018-03-31] MEDS: SODIUM CHLORIDE FLUSH 0.9% 10 ML SYRINGE IVP SCH ×3 (00:44→15:49)
[2018-03-31] MEDS: SODIUM CHLORIDE 0.9% 1,000 ML IV SCH ×4 (00:49→20:41)
[2018-03-31] MEDS: LEVALBUTEROL 1.25 MG/3 ML NEB INH PRN ×5 (02:44→21:03)
[2018-03-31] MEDS ORDERED: LEVALBUTEROL 1.25 MG/3 ML NEB INH STA (05:09)
[2018-03-31] MEDS: FORMOTEROL FUMARATE NEB 20 MCG/2 ML INH SCH ×2 (05:17→16:36)
[2018-03-31] MEDS: BUDESONIDE 0.5 MG/2 ML NEB INH SCH ×2 (05:18→16:36)
[2018-03-31] MEDS: BENZONATATE 100 MG CAPSULE PO PRN ×2 (05:49→16:41)
[2018-03-31] MEDS: methylPREDNISolone SUCCINATE 40 MG/ML VIAL IVP SCH ×3 (05:49→21:44)
[2018-03-31 05:58] LABS: BASOPHILS # (AUTO) 0.2 10^3/uL (0.0-0.1); BASOPHILS % (AUTO) 1.4 %; HGB - HEMOGLOBIN 11.9 g/dL (14.0-18.0); LYMPHOCYTES # (AUTO) 0.5 10^3/uL (1.5-3.5); LYMPHOCYTES % (AUTO) 2.7 %; MEAN CORPUSCULAR HEMOGLOBIN 29.1 pg (27.0-31.0); MEAN CORPUSCULAR HGB CONC 31.9 g/dL (32.0-36.0); MEAN CORPUSCULAR VOLUME 91.4 fL (80.0-94.0); MEAN PLATELET VOLUME 7.6 fL (7.4-11.4); MONOCYTES # (AUTO) 0.5 10^3/uL (0.0-1.0); MONOCYTES % (AUTO) 2.6 %; NEUTROPHILS # (AUTO) 16.7 10^3/uL (1.5-6.6); NEUTROPHILS % (AUTO) 93.3 %; PLT - PLATELET COUNT 283 10^3/uL (130-450); RED BLOOD COUNT 4.08 10^6/uL (4.70-6.10); RED CELL DISTRIBUTION WIDTH 13.2 % (12.0-15.0); WHITE BLOOD COUNT 17.9 x10^3/uL (4.8-10.8)
[2018-03-31 05:59] LABS: CALCIUM 8.9 mg/dL (8.5-10.3); CREATININE 0.8 mg/dL (0.6-1.2)
--- NOTE | 2018-03-31 07:59 | PROVIDER PROGRESS NOTE ---
Subjective - Prog Note Date Prog Note Date: 03/31/18 Prog Note Time: 15:26 - Subjective Pt reports feeling: Improved Subjective: He is nasal, still coughing up phlegm. As the course of the days progressed the phlegm has gone from clear thick to a yellow tinged with blood phlegm. He always had exercise-induced asthma as a kid. 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 By 1996 he had a severe pneumonia and it has been downhill since then. He considers it a good week if he only has to use his nebulizers 5 times a week. He usually has to use it every single morning, if not several times a day. The morning is nebulizers, followed by prednisone. Takes a shower. By the time he is in the car on the way to work he is coughing up copious amounts of clear phlegm. He has had hemoptysis in 1996, 2002, and again today. He has been evaluated through PPDs and AFBs and negative. He says that for a while his asthma improved tremendously when his sinuses were clear. In 2014 and 2013 they cleared his sinuses with antibiotics, Rebecca Aguiar , and for a while his asthma was much better. He knows that if he takes aspirin or ibuprofen he will get hives, severe asthma, and the only nonsteroidal he takes his Aleve. He has definitely improved during the stay. I still think he sounds terrible on lung exam but he laughs and says that this is his baseline Current Medications - Current Medications Current Medications: Active Medications Acetaminophen (Tylenol) 650 mg PO Q4HR PRN PRN Reason: Pain 1 to 4 Last Admin: 03/31/18 12:29 Dose: 650 mg Benzonatate (Tessalon) 100 mg PO TID PRN PRN Reason: Cough Last Admin: 03/31/18 05:49 Dose: 100 mg Budesonide (Pulmicort) 0.5 mg INH RTBID [facility] Last Admin: 03/31/18 05:18 Dose: 0.5 mg Calcium Citrate () 500 mg PO DAILY [facility] Last Admin: 03/31/18 08:02 Dose: 500 mg Cholecalciferol (Vitamin D3) 2,000 unit PO DAILY [facility] Last Admin: 03/31/18 08:02 Dose: 2,000 unit Enoxaparin Sodium (Lovenox) 40 mg SUBQ DAILY [facility] Last Admin: 03/31/18 08:02 Dose: 40 mg Famotidine (Pepcid) 20 mg PO DAILY [facility] Last Admin: 03/31/18 08:01 Dose: 20 mg Fexofenadine HCl (Emely) 90 mg PO DAILY [facility] Last Admin: 03/31/18 08:02 Dose: 90 mg Formoterol Fumarate (Perforomist) 20 mcg INH RTBID@1100,2300 [facility] Last Admin: 03/31/18 05:17 Dose: 20 mcg Sodium Chloride (Normal Saline 0.9%) 1,000 mls @ 150 mls/hr IV .Q6H40M [facility] Last Admin: 03/31/18 14:43 Dose: 150 mls/hr Azithromycin 500 mg/ Sodium (Chloride) 250 mls @ 250 mls/hr IV HS [facility] Last Infusion: 03/30/18 22:37 Dose: Infused Ceftriaxone Sodium 2 gm/ (Sodium Chloride) 100 mls @ 200 mls/hr IV DAILY@2200 [facility] Last Infusion: 03/30/18 23:14 Dose: Infused Levalbuterol HCl (Xopenex) 1.25 mg INH Q4H PRN PRN Reason: Shortness of Air/Wheezing Last Admin: 03/31/18 13:17 Dose: 1.25 mg Methylprednisolone (Solu-Medrol (40mg Vial)) 40 mg IVP TID [facility] Last Admin: 03/31/18 13:40 Dose: 40 mg Montelukast Sodium (Singulair) 10 mg PO DAILY [facility] Last Admin: 03/31/18 08:02 Dose: 10 mg Naproxen (Naprosyn) 250 mg PO TID PRN PRN Reason: PAIN Ondansetron HCl (Zofran Inj) 4 mg IVP Q6HR PRN PRN Reason: Nausea / Vomiting Oxycodone HCl (Roxicodone) 5 mg PO Q4HR PRN PRN Reason: Pain 5 to 7 Oxycodone HCl (Roxicodone) 10 mg PO Q4HR PRN PRN Reason: Pain 8 to 10 Polyethylene Glycol (Miralax) 17 gm PO DAILY [facility] Last Admin: 03/31/18 08:19 Dose: Not Given Prochlorperazine Edisylate (Compazine Inj) 10 mg IVP Q6HR PRN PRN Reason: Nausea / Vomiting Sodium Chloride (Normal Saline Flush 0.9%) 10 ml IVP PRN PRN PRN Reason: NEEDED PER PROVIDER ORDERS Last Admin: 03/30/18 22:37 Dose: 10 ml Sodium Chloride (Normal Saline Flush 0.9%) 10 ml IVP 0100,0900,1700 [facility] Last Admin: 03/31/18 08:19 Dose: Not Given Zolpidem Tartrate (Ambien) 5 mg PO QPM PRN PRN Reason: Insomnia Acetaminophen [Tylenol] 650 mg PO Q4HR PRN 03/30/18 Albuterol Sulfate [Proair Hfa Inhaler] 1 - 2 puffs INH Q4H PRN 03/30/18 Beclomethasone 80 Mcg [Qvar 80] 2 puffs INH BID 03/30/18 Calcium Citrate 600 mg PO DAILY 03/30/18 Cholecalciferol (Vitamin D3) [Vitamin D3] 2,000 tab PO DAILY 03/30/18 Fexofenadine HCl 90 mg PO DAILY 03/30/18 Mometasone/Formoterol [Dulera 200 Mcg/5 Mcg Inhaler] 2 puffs INH BID 03/30/18 Montelukast [Singulair] 10 mg PO QPM 03/30/18 Naproxen 250 mg PO Q12H PRN 03/30/18 Omeprazole [PriLOSEC] 20 mg PO QDAC 03/30/18 Telmisartan [Micardis] 40 mg PO DAILY 03/30/18 Tiotropium [place] [Spiriva] 1 puffs INH DAILY 03/30/18 predniSONE [Deltasone] 20 mg PO DAILYWM 03/30/18 raNITIdine [Zantac] 150 tab PO BID 03/30/18 Objective - Vital Signs/Intake & Output Reviewed Vital Signs: Yes Vital Signs: Vital Signs x48h Pulse Resp 03/31/18 05:22 110 H 12 03/31/18 02:46 103 H 12 Intake & Output: Intake & Output 03/28/18 03/29/18 03/30/18 03/31/18 23:59 23:59 23:59 23:59 Intake Total 5957.5 1300 Output Total 1100 Balance 4857.5 1300 - Objective General Appearance: positive: No acute distress, Alert, Other (Moderately obese middle-aged white male, cushingoid appearance, upright in his room chair watching TV. His girlfriend is with him. Nasal tone of voice) Eyes Bilateral: positive: PERRL, EOMI Neck: positive: No JVD. negative: Stiff neck, Carotid bruit Respiratory: positive: Chest non-tender, Wheezes, Rhonchi, Other (Yesterday he had improved from no breath sounds whatsoever to actual wheezing all throughout his lung carney. Today his wheezing is mid exhalation to the end of exhalation. Copious, copious wet rhonchi diffusely) Cardiovascular: positive: Regular rate & rhythm, Tachycardia. negative: JVD present, Gallop/S4 Abdomen: positive: Non-tender, Nml bowel sounds, No distention Skin: positive: Warm, Dry Extremities: positive: Non-tender, No pedal edema Neurologic/Psychiatric: positive: Oriented x3, CN's nml (2-12), Motor nml - Lab Results Fish Bones: 03/31/18 05:25 03/31/18 05:25 Other Labs: Lab Results x24hrs 03/31/18 03/31/18 Range/Units 05:25 05:25 WBC 17.9 H (4.8-10.8) x10^3/uL RBC 4.08 L (4.70-6.10) 10^6/uL Hgb 11.9 L (14.0-18.0) g/dL Hct 37.3 L (42.0-52.0) % MCV 91.4 (80.0-94.0) fL MCH 29.1 (27.0-31.0) pg MCHC 31.9 L (32.0-36.0) g/dL RDW 13.2 (12.0-15.0) % Plt Count 283 (130-450) 10^3/uL MPV 7.6 (7.4-11.4) fL Neut # (Auto) 16.7 H (1.5-6.6) 10^3/uL Lymph # (Auto) 0.5 L (1.5-3.5) 10^3/uL [place] # (Auto) 0.5 (0.0-1.0) 10^3/uL Eos # (Auto) 0.0 (0.0-0.7) 10^3/uL Baso # (Auto) 0.2 H (0.0-0.1) 10^3/uL Absolute Nucleated RBC 0.02 x10^3/uL Nucleated RBC % 0.1 /100WBC Sodium 141 (135-145) mmol/L Potassium 4.1 (3.5-5.0) mmol/L Chloride 108 (101-111) mmol/L Carbon Dioxide 25 (21-32) mmol/L Anion Gap 8.0 (6-13) BUN 14 (6-20) mg/dL Creatinine 0.8 (0.6-1.2) mg/dL Estimated GFR (MDRD) 101 (>89) Glucose 189 H (70-100) mg/dL Calcium 8.9 (8.5-10.3) mg/dL ABX Reporting Has patient been on IV antibiotics over the past 48 hours?: Yes Assessment/Plan - Problem List (1) Bilateral pneumonia Impression: Patient presented to the emergency department with sepsis and was found to have bilateral pneumonia. Patient was not hypoxic but did appear to be in respiratory distress and did have asthma exacerbation. He feels much better. Now coughing up loose phlegm and chest not so tight yesterday. Feels normal today except for the change in phlegm color and the hemoptysis. I repeated CXR for fu and he has stable bilteal lower lobe pneumonia. Plan: IV antibiotics with ceftriaxone and azithromycin, Day #2 Plan for 7-10 days total tx with change to po once cultures back. Blood cultures were negative at 24 hours. will finish azithromycin po at home with amoxil for total of 10 days to combine po and IV tx. Sputum cultures not done yet. Gram stain not helpful. Continue to asthma exacerbation with nebs, steroids and oxygen as needed IV fluids stopped Check AFB, coccidial titers. Qualifiers: Pneumonia type: due to unspecified organism Lung location: lower lobe of lung Qualified Code(s): J18.1 - Lobar pneumonia, unspecified organism (2) Asthma exacerbation Conclusion/Plan: Patient has history of severe persistent asthma. He has daily symptoms and has been on daily prednisone for the last 6 months. He presented with sepsis and was found to have bilateral pneumonia he appears to also have asthma exacerbation. The patient was very tight on initial examination and did have some improvement with nebs. Patient is also very tachycardic and would likely benefit from Xopenex instead of albuterol. Patient was taking 30 mg of prednisone at home but will be switched to IV steroids while hospitalized. He states is is so much better this am inspite of continued wheezing. lungs looser but still tachycardic. no tachypnea and he is able to complete full sentences and gesticulte while talking without increased respiratory effort. Plan: Continue his current treatment of Xopenex every 4 hours as needed and 4 times daily 1 day Solu-Medrol 40 mg 3 times daily Azithromycin/Ceftriaxone IV Supplemental oxygen Formoterol via neb twice daily Budesonide via neb twice daily Tomorrow he can go home with prednisone 60 mg and quick taper to his baseline 30mg Qualifiers: Asthma severity: severe Asthma persistence: persistent Qualified Code(s) : J45.51 - Severe persistent asthma with (acute) exacerbation (3) Hypertension Conclusion/Plan: Patient was hypertensive on presentation likely secondary to him being in distress. Patient's blood pressure did improve while he was in the emergency department. This am he is 115 systolic. He is persistently tachycardic. Some of this may be from his meds but it is a prognoticator of poor status. We will continue the patient's home dose of Micardis Adding a low dose beta-ya given the patient's severe tachycardia: metoprolol 25 mg po bid Qualifiers: Hypertension type: essential hypertension Qualified Code(s): I10 - Essential (primary) hypertension (4) GERD (gastroesophageal reflux disease) Conclusion/Plan: Stable Continue patient's home dose of ranitidine Qualifiers: Esophagitis presence: without esophagitis Qualified Code(s): K21.9 - Gastro -esophageal reflux disease without esophagitis (5) Sepsis Impression: Resolved: fever has resolved, lactic acid down to 1.3 but WBC is up to 17.9K without much improvement and he is still tachycardic. WBC level may be somewhat due to steroids. On presentation to the emergency department the patient was febrile with temperature up to 39.9, tachycardic with heart rate in the 160s, with leukocytosis with WBC of 13.3, tachypneic with respiratory rate greater than 25 and has lactic acid of 2.3. Source of patient's sepsis appears to be pneumonia as the patient has bibasilar pneumonia on chest x-ray. Plan: IV antibiotics to treat pneumonia: ceftriaxone and azithromycin Day #2 IV fluids have been at 150 and once severe tachycardia of 160's resolved, IV locked. Lactic acid level now nml Blood cultures have been neg at 24 hours. Qualifiers: Sepsis type: sepsis due to unspecified organism Qualified Code(s): A41.9 - Sepsis, unspecified organism
[2018-03-31] MEDS: FAMOTIDINE 20 MG TABLET PO SCH (08:01)
[2018-03-31] MEDS: FEXOFENADINE 60 MG TABLET PO SCH (08:02)
[2018-03-31] MEDS: ENOXAPARIN 40 MG/0.4 ML SYRINGE SUBQ SCH (08:02)
[2018-03-31] MEDS: MONTELUKAST 10 MG TABLET PO SCH (08:02)
[2018-03-31] MEDS: CHOLECALCIFEROL 1,000 UNIT TABLET PO SCH (08:02)
[2018-03-31] MEDS: CALCIUM CITRATE 250 MG TABLET PO SCH (08:02)
[2018-03-31] MEDS: ACETAMINOPHEN 325 MG TABLET PO PRN ×4 (08:18→20:50)
[2018-03-31] MEDS: POLYETHYLENE GLYCOL 3350 17 GM PACKET PO SCH (08:19)
--- NOTE | 2018-03-31 12:40 | XRAY Preliminary Report ---
Exam: XR CHEST 1 VIEW X-RAY IMPRESSION: Stable bilateral lower lobe pneumonia. [facility] SITE ID: [id number]
--- NOTE | 2018-03-31 12:40 | XRAY Report ---
EXAM: CHEST RADIOGRAPHY EXAM DATE: 03/31/2018 08:54 AM. CLINICAL HISTORY: Followup of pneumonia, still w wheezing. COMPARISON: 03/30/2018. TECHNIQUE: 1 view. FINDINGS: Lungs/Pleura: Persistent bibasilar opacities, similar in appearance when compared to 03/30/2018. No ple ural effusion. No pneumothorax. Mediastinum: Within exam limitations, the cardiomediastinal contour is normal. Other: None. IMPRESSION: Stable bilateral lower lobe pneumonia. [facility] Referring Provider Line: [phone] SITE ID: [id number]
[2018-03-31] MEDS: METOPROLOL TARTRATE 25 MG TABLET PO SCH (16:40)
[2018-03-31] MEDS: AZITHROMYCIN INJ 500 MG in SODIUM CHLORIDE 0.9% 250 ML IV SCH (20:41)
[2018-03-31] MEDS: cefTRIAXone 2 GM in SODIUM CHLORIDE 0.9% MINIBAG 100 ML IV SCH (21:44)
[2018-04-01] MEDS: SODIUM CHLORIDE FLUSH 0.9% 10 ML SYRINGE IVP SCH ×2 (00:57→08:24)
[2018-04-01] MEDS: SODIUM CHLORIDE 0.9% 1,000 ML IV SCH ×2 (00:58→04:57)
[2018-04-01] MEDS: LEVALBUTEROL 1.25 MG/3 ML NEB INH PRN (01:08)
[2018-04-01] MEDS: ALBUTEROL NEB 2.5 MG/3 ML INH PRN ×3 (04:20→11:22)
[2018-04-01] MEDS: BENZONATATE 100 MG CAPSULE PO PRN (04:42)
[2018-04-01] MEDS: ACETAMINOPHEN 325 MG TABLET PO PRN (04:42)
[2018-04-01] MEDS: SODIUM CHLORIDE FLUSH 0.9% 10 ML SYRINGE IVP PRN (04:57)
[2018-04-01] MEDS: methylPREDNISolone SUCCINATE 40 MG/ML VIAL IVP SCH (04:57)
[2018-04-01 05:53] LABS: BASOPHILS % (AUTO) 0.1 %; HGB - HEMOGLOBIN 11.9 g/dL (14.0-18.0); LYMPHOCYTES # (AUTO) 0.5 10^3/uL (1.5-3.5); LYMPHOCYTES % (AUTO) 3.5 %; MEAN CORPUSCULAR HEMOGLOBIN 29.6 pg (27.0-31.0); MEAN CORPUSCULAR HGB CONC 32.6 g/dL (32.0-36.0); MEAN CORPUSCULAR VOLUME 90.6 fL (80.0-94.0); MEAN PLATELET VOLUME 7.7 fL (7.4-11.4); MONOCYTES # (AUTO) 0.5 10^3/uL (0.0-1.0); MONOCYTES % (AUTO) 3.4 %; NEUTROPHILS # (AUTO) 12.4 10^3/uL (1.5-6.6); PLT - PLATELET COUNT 307 10^3/uL (130-450); RED BLOOD COUNT 4.03 10^6/uL (4.70-6.10); RED CELL DISTRIBUTION WIDTH 13.3 % (12.0-15.0); WHITE BLOOD COUNT 13.4 x10^3/uL (4.8-10.8)
[2018-04-01 05:57] LABS: CALCIUM 8.4 mg/dL (8.5-10.3); CREATININE 0.8 mg/dL (0.6-1.2)
--- NOTE | 2018-04-01 07:40 | Discharge Plan ---
Discharge Plan Disposition: 01 Home, Self Care Condition: Fair Prescriptions: Amoxicillin 500 mg PO TID #21 capsule Azithromycin 500 mg PO DAILY #3 tablet predniSONE [Prednisone] 10 mg PO DAILY #30 tablet Diet: Regular Activity Restrictions: Activity as Tolerated Shower Restrictions: No Driving Restrictions: No Additional Instructions or Follow Up instructions: You were admitted to the hospital because of sepsis with pneumonia. You have a long history of a severe type of asthma that was also made worse by this pneumonia. You had a high fever, fast heart rate, elevated white cell count with low oxygen level. All of these had improved by the time you were discharged except for the continued wheezing and sound of phlegm in your lungs. You feel that this is a constant state for you and are not alarmed and no your body well. Please see your button riveter in follow-up. They need to know you were in the hospital. There were also some cultures that are pending at the time of discharge. Your button riveter will need to review those cultures when you next see them. You are being sent home on a tapered dose of prednisone. It will be tapered to 30 mg and then he will resume tapering it as your button riveter instructed. No Smoking: If you smoke, Please STOP! Call for help. Follow-up with: MARGA NELSON [Primary Care Provider] -
[2018-04-01] MEDS: BUDESONIDE 0.5 MG/2 ML NEB INH SCH (07:53)
[2018-04-01] MEDS: FORMOTEROL FUMARATE NEB 20 MCG/2 ML INH SCH (07:53)
[2018-04-01] MEDS: POLYETHYLENE GLYCOL 3350 17 GM PACKET PO SCH (08:20)
[2018-04-01] MEDS: ENOXAPARIN 40 MG/0.4 ML SYRINGE SUBQ SCH (08:20)
[2018-04-01] MEDS: METOPROLOL TARTRATE 25 MG TABLET PO SCH (08:21)
[2018-04-01] MEDS: MONTELUKAST 10 MG TABLET PO SCH (08:21)
[2018-04-01] MEDS: FEXOFENADINE 60 MG TABLET PO SCH (08:21)
[2018-04-01 08:24] VITALS: BP 167/90
[2018-04-01] MEDS: CALCIUM CITRATE 250 MG TABLET PO SCH (08:24)
[2018-04-01] MEDS: CHOLECALCIFEROL 1,000 UNIT TABLET PO SCH (08:24)
[2018-04-01] MEDS: FAMOTIDINE 20 MG TABLET PO SCH (08:24)
--- NOTE | 2018-04-02 17:09 | DISCHARGE SUMMARY ---
Physician: Lisset Jorge MD DATE OF ADMISSION: 03/30/2018 DATE OF DISCHARGE: 04/01/2018 PRIMARY CARE PROVIDER: Ubalod Elias PA-C DISCHARGE DIAGNOSES 1. Sepsis. 2. Bilateral pneumonia. 3. Hemoptysis. 4. Severe persistent asthma with exacerbation. 5. Hypertension. 6. Gastroesophageal reflux disease. DISCHARGE MEDICATIONS 1. Tylenol 650 mg p.o. q.4 h. as needed. 2. ProAir HFA inhaler 1-2 puffs every 4 hours as needed. 3. Amoxil 500 mg p.o. t.i.d. to finish 21 capsules. 4. Azithromycin 500 mg p.o. daily #3 to finish. 5. Beclomethasone 80 mcg 2 puffs b.i.d. 6. Calcium citrate 600 mg daily. 7. Vitamin D 2000 tablets international units daily. 8. Fexofenadine 90 mg daily. 9. Dulera 200/5 mcg 2 puffs b.i.d. 10. Singulair 10 daily. 11. Naproxen 250 p.o. b.i.d. 12. Prilosec 20 daily. 13. Prednisone 10 mg tablets. He is to start at 60 mg for 2 days, then 50 for 2 days, then 40 for 2 days, then 30 mg. He is to start a 30 mg taper per his previous scholarship counselor instruction. 14. Ranitidine 150 mg p.o. b.i.d. 15. Micardis 40 mg p.o. daily. 16. Spiriva 1 puff daily. PRINCIPAL PROCEDURES 1. Chest x-ray with heart and mediastinal contours unremarkable. Bibasilar retrocardiac airspace opacities. [place] to be bibasilar pneumonia. 2. Repeat chest x-ray 03/31/2018 showed stable bibasilar pneumonia. 3. Blood cultures no growth after 2 days. 4. Preliminary respiratory culture is only for Gram stain. Pending at the time of discharge are AFB stains, AFB culture, and coccidial titers. HOSPITAL COURSE: This is a 52-year-old white male who has a long history of pneumonia since the . He always had exercise-induced asthma, but had a terrible pneumonia in 1996 and since then has had severe reactive airways disease. Sometimes it gets worse and he develops anaphylaxis and rash with nonsteroidals. He is followed by pulmonology and primary care provider. He is in the process of being worked up for other causes of asthma. He now presents with 2 days of worsening shortness of breath. Increasing cough with increasing sputum production. Phlegm is now quite yellow and thick. He started having fever and chills. His scholarship counselor increased his daily prednisone dose from 20 to 30 mg, and it did not help his symptoms. Cough, fever, and shortness of breath continued to worsen over the next day. Wheezing increased. Chills increased. He went to the emergency room at [facility], and he was given 3 nebulizer treatments and he did not feel better. He went home. Now comes in because he is so short of breath. He is gasping for air. In the emergency department, he was severely tachycardic with heart rate of 161 and in respiratory distress with a respiratory rate of 28, but saturating well on room air. Chills on presentation with temperature 39.1. Blood work showed him to have a leukocytosis of 13.3, a negative D-dimer and a lactic acid of 2.3. Influenza swab was negative. Troponin was negative. EKG showed sinus tachycardia. Chest x-ray showed bibasilar pneumonia. He was given nebulizer treatments in the ER for his severe asthma with only mild improvement. The patient was felt to be septic with bilateral pneumonia, which then exacerbated his asthma. He was admitted and placed on Rocephin and azithromycin for community-acquired pneumonia. Blood cultures were negative. While he responded to nebulizers and antibiotics with decreasing temperature, his lung sounds had increasing wheezing, wetness. On the first day I met him, his lung sounds were almost too quiet in spite of his tachypnea. The next day, he was having much looser air movement, whistling air movement, and rhonchi. On the day of discharge, he still has significant scattered wheezing and phlegm sounds, but the patient really wants to go home. He is ambulating in the room, saturating normally on room air. His antibiotics have been transitioned to amoxicillin and azithromycin to finish treatment for pneumonia. The day before discharge, he had an episode of hemoptysis. He said that that is what happened to him before off and on. He has already been evaluated for TB. He thinks he has already been evaluated for fungus. Nevertheless, I went ahead and sent off AFB smears and coccidial titers. Both of these are pending at the time of discharge. I would recommend a spiral CT and further evaluation for the cause of his asthma. I explained to him that I find him not at baseline. He has significant wheezing and rhonchi. He explains that that is his baseline. He uses a nebulizer or inhaled bronchodilator at least 3 or 4 times a week on a rescue basis. He uses it daily every day regularly in the morning when he gets out of bed. As such, he is sent home on a tapered dose of steroids, starting at 60 mg down to the 30 mg that his scholarship counselor asked him to be on. DISCHARGE EXAMINATION: At the time of discharge, temperature was 36.4, pulse 94, respirations 18 and unlabored, and 96% on room air. He is a short, stocky, moderately overweight white male with a cushingoid appearance; unshaven, disheveled. Neck is thick, difficult to assess for JVD. He has a hoarse voice. A phlegmy cough bringing up thick phlegm occasionally streaked with blood. Although I find him to be moderately wheezing and would like him to stay, he firmly states that this is his baseline. As such, he is discharged with scattered wheezing and rhonchi. The abdomen is protuberant and obese, soft. Ankles have trace edema. Greater than 30 minutes was spent in coordinating discharge. cc: BENITA Lewis TD: 04/01/2018 23:03
== END 2018-04-01 12:19 | disposition home or self-care (01) | DRG 871 ==
LOC: ED 00:52 → MS2 02:29
PROVIDERS: ADMIT Internal Medicine; ATTEND Specialist
DX: A41.9 Sepsis, unspecified organism (principal); J18.1 Lobar pneumonia, unspecified organism; R04.2 Hemoptysis; J45.51 Severe persistent asthma with (acute) exacerbation; E24.2 Drug-induced Cushing's syndrome; T38.0X5A Adverse effect of glucocorticoids and synthetic analogues, initial encounter; I10 Essential (primary) hypertension; R00.0 Tachycardia, unspecified; K21.9 Gastro-esophageal reflux disease without esophagitis; E66.9 Obesity, unspecified; Z68.31 Body mass index [BMI] 31.0-31.9, adult; Z79.899 Other long term (current) drug therapy; Z57.2 Occupational exposure to dust; Z77.098 Contact with and (suspected) exposure to other hazardous, chiefly nonmedicinal, chemicals; Z88.8 Allergy status to other drugs, medicaments and biological substances
CPT/HCPCS: 36415; 71045; 71046; 80048; 81001; 81003; 81599; 83605; 84484; 85025; 85379; 87040; 87070; 87086; 87205; 87275; 87276; 93005; 94640; 96374; 99284

== ENCOUNTER 2018-04-10 08:38 | Outpatient (CLI) | payer OTHER | END 2018-04-10 08:39 | disposition home or self-care (01) | LOC: SC 08:38 | PROVIDERS: ATTEND Nurse Practitioner Family | DX: G47.33 Obstructive sleep apnea (adult) (pediatric) (principal); G47.61 Periodic limb movement disorder | CPT/HCPCS: 99212; 99214 ==

== ENCOUNTER 2018-06-17 14:40 | Outpatient (CLI) | payer OTHER | END 2018-06-17 14:41 | disposition home or self-care (01) | LOC: SC 14:40 | PROVIDERS: ATTEND Nurse Practitioner Family | DX: G47.33 Obstructive sleep apnea (adult) (pediatric) (principal) | CPT/HCPCS: 99212; 99214 ==

== ENCOUNTER 2018-07-24 14:36 | Outpatient (CLI) | payer OTHER | END 2018-07-24 14:37 | disposition home or self-care (01) | LOC: SC 14:36 | PROVIDERS: ATTEND Nurse Practitioner Family | DX: G47.33 Obstructive sleep apnea (adult) (pediatric) (principal) | CPT/HCPCS: 99212; 99214 ==

== ENCOUNTER 2018-10-07 08:05 | Outpatient (CLI) | payer OTHER ==
--- NOTE | 2018-10-08 11:09 | DEXA Report ---
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 Regions measured are the AP Spine, femoral neck, and if needed forearm. COMPARISON: None. In accordance with the International Society for Clinical Densitometry (ISCD) guidelines, data from previous exams may be reanalyzed using current recommendations and techniques. This is done to allow a more accurate basis for comparison with the current study. FINDINGS: The data for the lumbar spine is as follows: BMD (g/cm/cm) T-SCORE Z-SCORE REGION L1 0.971 -1.6 -2.0 L2 1.111 -1.1 -1.5 L3 1.207 -0.3 -0.7 L4 1.133 -0.9 -1.4 TOTAL 1.111 -0.9 -1.4 NOTE: All evaluable vertebrae are used for classification The data for the hip is as follows: BMD (g/cm/cm) T-SCORE Z-SCORE REGION Neck 0.921 -1.1 -0.9 TOTAL 1.042 -0.4 -0.5 NOTE: The femoral neck or total proximal femur, whichever is lowest, is used for classification. IMPRESSION: THE WHO CLASSIFICATION BASED ON THE INTERNATIONAL REFERENCE STANDARD IS OSTEOPENIA. THE FRACTURE RISK IS INCREASED. RECOMMENDATION: Patients with diagnosis of osteoporosis or osteopenia should have regular bone mineral density assessment. For those eligible for Medicare, routine testing is allowed once every 2 years. Testing frequency can be increased for patients who have rapidly progressing disease or for those who are receiving medical therapy to restore bone mass. COMMENT: World Health Organization (WHO) definitions for osteoporosis and osteopenia: NORMAL BMD: T-score at -1.0 or higher, fracture risk is low OSTEOPENIA BMD: T-score between -1.0 and -2.5, fracture risk is increased. OSTEOPOROSIS BMD: T-score at -2.5 or lower, fracture risk is high. National Osteoporosis Foundation recommends: 1. Obtain adequate dietary calcium (at least 1200 mg per day) and vitamin D (400-800 international units per day). 2. Participate, as appropriate, in regular weightbearing and muscle-strengthening exercise. 3. Avoid tobacco use and reduce alcohol and caffeine intake. 4. For more detailed information see the website at www.NOF.org.
== END 2018-10-07 08:06 | disposition home or self-care (01) ==
LOC: DI 08:05
PROVIDERS: ATTEND Allergy & Immunology
DX: M85.88 Other specified disorders of bone density and structure, other site (principal); Z79.52 Long term (current) use of systemic steroids
CPT/HCPCS: 77080

== ENCOUNTER 2019-01-21 08:33 | Outpatient (CLI) | payer OTHER | END 2019-01-21 08:34 | disposition home or self-care (01) | LOC: SC 08:33 | PROVIDERS: ATTEND Nurse Practitioner Family | DX: G47.33 Obstructive sleep apnea (adult) (pediatric) (principal) | CPT/HCPCS: 99212; 99213 ==

== ENCOUNTER 2019-02-15 08:06 | Emergency (ER) | payer OTHER ==
[2019-02-15] MEDS ORDERED: DEXAMETHASONE 10 MG/ML VIAL IVP STA (08:35)
[2019-02-15] MEDS ORDERED: IPRATROPIUM/ALBUTEROL 3 ML NEB INH STA (08:35)
--- NOTE | 2019-02-15 08:41 | ED Physician Documentation ---
History of Present Illness - Stated complaint Stated Complaint: DIFFICUTLY BREATHING - Chief complaint Chief Complaint: Resp - History obtained from History obtained from: Patient, Family - History of Present Illness Timing: Last night Pain level max: 0 Pain level now: 0 Improved by: Rest Worsened by: Exertion - Additonal information Additional information: 53-year-old male with a history of steroid resistant asthma, presents to the emergency department with difficulty breathing since last night. He is currently on 55 mg of prednisone daily. He has been on this for several months. He is on dupixentfor his asthma. Sees Dr. Ron in [place] for pulmonology. States that when this occurs, he will often require a dose of IV steroids. No fevers. No change in his cough. No change in color of his sputum. States that last time he had pneumonia. Review of Systems Ten Systems: 10 systems reviewed and negative Constitutional: denies: Fever, Chills Ears: denies: Ear pain Nose: reports: Congestion. denies: Sinus pressure / pain Throat: denies: Sore throat Cardiac: denies: Chest pain / pressure Respiratory: reports: Dyspnea, Cough, Wheezing GI: denies: Abdominal Pain, Nausea, Vomiting, Diarrhea Skin: denies: Rash Musculoskeletal: denies: Neck pain, Back pain Neurologic: denies: Headache PD PAST MEDICAL HISTORY - Past Medical History Cardiovascular: Hypertension Respiratory: Asthma Neuro: None Endocrine/Autoimmune: None GI: GERD : None HEENT: None Psych: None Musculoskeletal: None - Past Surgical History Past Surgical History: No General: Colonoscopy - Present Medications Home Medications: Ambulatory Orders Medication Instructions Recorded Confirmed Acetaminophen [Tylenol] 650 mg PO Q4HR PRN 03/30/18 03/30/18 Albuterol Sulfate [Proair Hfa 1 - 2 puffs INH Q4H PRN 03/30/18 03/30/18 Inhaler] Beclomethasone 80 Mcg [Qvar 80] 2 puffs INH BID 03/30/18 03/30/18 Calcium Citrate 600 mg PO DAILY 03/30/18 03/30/18 Cholecalciferol (Vitamin D3) 2,000 tab PO DAILY 03/30/18 03/30/18 [Vitamin D3] Fexofenadine HCl 90 mg PO DAILY 03/30/18 03/30/18 Mometasone/Formoterol [Dulera 200 2 puffs INH BID 03/30/18 03/30/18 Mcg/5 Mcg Inhaler] Montelukast [Singulair] 10 mg PO QPM 03/30/18 03/30/18 Naproxen 250 mg PO Q12H PRN 03/30/18 03/30/18 Omeprazole [PriLOSEC] 20 mg PO QDAC 03/30/18 03/30/18 Telmisartan [Micardis] 40 mg PO DAILY 03/30/18 03/30/18 Tiotropium [place] [Spiriva] 1 puffs INH DAILY 03/30/18 03/30/18 raNITIdine [Zantac] 150 tab PO BID 03/30/18 03/30/18 Dexamethasone [Decadron] 8 mg PO DAILY PRN #10 tablet 02/15/19 Fluticasone [Flonase] 02/15/19 predniSONE [Prednisone] 55 mg PO DAILY 02/15/19 - Allergies Allergies/Adverse Reactions: Allergies Allergy/AdvReac Type Severity Reaction Status Date / Time aspirin Allergy Unknown Verified 02/15/19 08:14 ibuprofen AdvReac Respiratory Verified 02/15/19 08:14 - Social History Does the pt smoke?: No Smoking Status: Never smoker Does the pt drink ETOH?: Yes Does the pt have substance abuse?: No - Immunizations Immunizations are current?: Yes - POLST Patient has POLST: No POLST Status: Full Code PD ED PE NORMAL - Vitals Vital signs reviewed: Yes - General General: Alert and oriented X 3, No acute distress, Well developed/nourished - HEENT HEENT: PERRL, Moist mucous membranes - Neck Neck: Supple, no meningeal sign - Cardiac Cardiac: RRR, Strong equal pulses - Respiratory Respiratory: No respiratory distress, Other (Diminished breath sounds and wheezing bilaterally) - Abdomen Abdomen: Soft, Non tender, Non distended - Derm Derm: Warm and dry - Extremities Extremities: No edema, No calf tenderness / cord - Neuro Neuro: Alert and oriented X 3 - Psych Psych: Normal mood, Normal affect Results - Vitals Vitals: Vital Signs - 24 hr 02/15/19 02/15/19 02/15/19 08:13 08:53 09:41 Temperature 36.8 C Heart Rate 113 H 98 87 Respiratory 24 20 18 Rate Blood Pressure 154/90 H 137/78 H O2 Saturation 97 95 Oxygen O2 Source Room air - Labs Labs: Laboratory Tests 02/15/19 02/15/19 08:57 08:57 WBC 8.2 RBC 4.43 L Hgb 13.2 L Hct 40.3 L MCV 91.0 MCH 29.9 MCHC 32.8 RDW 15.5 H Plt Count 281 MPV 7.0 L Neut # (Auto) Not Reportable Lymph # (Auto) Not Reportable [place] # (Auto) Not Reportable Eos # (Auto) Not Reportable Baso # (Auto) Not Reportable Absolute Nucleated RBC Not Reportable Total Counted 100 Band Neuts % (Manual) 2 Abnorm Lymph % (Manual) 0 Metamyelocytes % 1 H Nucleated RBC % Not Reportable Neutrophils # (Manual) 7.5 H Lymphocytes # (Manual) 0.3 L Monocytes # (Manual) 0.3 Eosinophils # (Manual) 0.0 Basophils # (Manual) 0.0 Differential Comment MANUAL DIFFERENTIAL Manual Slide Review Indicated Platelet Estimate NORMAL (130-450,000) Platelet Morphology RARE GIANT PLATELETS Sodium 138 Potassium 4.4 Chloride 100 L Carbon Dioxide 25 Anion Gap 13.0 BUN 16 Creatinine 0.8 Estimated GFR (MDRD) 100 Glucose 300 H Calcium 9.1 - Rads (name of study) Chest x-ray Radiology: Prelim report reviewed, EMP read contemporaneously, See rad report (No focal consolidation or pulmonary edema. 2. Mild nonspecific vascular and interstitial prominence centrally. Heart size upper limits normal. Calcified atherosclerosis in the aorta. 3. Exam otherwise as above. ) PD MEDICAL DECISION MAKING - ED course Complexity details: reviewed results, re-evaluated patient, considered differential, d/w patient, d/w family ED course: 53-year-old male with what appears to be a exacerbation of his long-standing asthma. Feels better after dexamethasone IV as well as a DuoNeb treatment. Breathing easier, speaking in full sentences and ambulating without difficulty. No hypoxia or respiratory distress. Will prescribe a small amount of dexamethasone for home and have him follow-up with his doctor. Chest x-ray does not show any pneumonia. Patient and family counseled regarding signs and symptoms for which I believe and urgent re-evaluation would be necessary. Patient with good understanding of and agreement to plan and is comfortable going home at this time This document was made in part using voice recognition software. While efforts are made to proofread this document, sound alike and grammatical errors may occur. Departure - Departure Disposition: 01 Home, Self Care Clinical Impression: Asthma exacerbation Qualifiers: Asthma severity: unspecified severity Asthma persistence: persistent Qualified Code(s): J45.901 - Unspecified asthma with (acute) exacerbation Condition: Good Instructions: ED Reactive Airway Disease Follow-Up: Delvin Zhao MD [Primary Care Provider] - Within 1 week Prescriptions: Dexamethasone [Decadron] 8 mg PO DAILY PRN #10 tablet PRN Reason: asthma exacerbation Comments: Follow-up with your doctor for further care. Return if you worsen. Discharge Date/Time: 02/15/19 09:41
--- NOTE | 2019-02-15 09:01 | XRAY Report ---
Reason: cough Procedure Date: 02/15/2019 Accession Number: [id number] / [id number] Procedure: XR - Chest 2 View X-Ray CPT Code: 34181 FULL RESULT: EXAM: CHEST RADIOGRAPHY EXAM DATE: 02/15/2019 08:51 AM. CLINICAL HISTORY: Cough. History of asthma and history of pneumonia. COMPARISON: 03/31/2018. TECHNIQUE: 2 views. FINDINGS: Lungs/Pleura: Mild nonspecific vascular and interstitial prominence without gross peripheral interstitial distention. No airspace edema. No focal consolidation. No pleural effusion. No nodules. Mediastinum: Heart size upper limits normal. Calcified atherosclerosis in the aorta. Otherwise unremarkable. Other: None. IMPRESSION: 1. No focal consolidation or pulmonary edema. 2. Mild nonspecific vascular and interstitial prominence centrally. Heart size upper limits normal. Calcified atherosclerosis in the aorta. 3. Exam otherwise as above. RADIA
[2019-02-15 09:12] LABS: BASOPHILS % (AUTO) 0.2 %; CALCIUM 9.1 mg/dL (8.5-10.3); CREATININE 0.8 mg/dL (0.6-1.2); HGB - HEMOGLOBIN 13.2 g/dL (14.0-18.0); LYMPHOCYTES % (AUTO) 3.2 %; MEAN CORPUSCULAR HEMOGLOBIN 29.9 pg (27.0-31.0); MEAN CORPUSCULAR HGB CONC 32.8 g/dL (32.0-36.0); MONOCYTES % (AUTO) 5.2 %; NEUTROPHILS % (AUTO) 91.4 %; PLT - PLATELET COUNT 281 10^3/uL (130-450); RED BLOOD COUNT 4.43 10^6/uL (4.70-6.10); RED CELL DISTRIBUTION WIDTH 15.5 % (12.0-15.0); WHITE BLOOD COUNT 8.2 x10^3/uL (4.8-10.8)
[2019-02-15 09:22] LABS: ABNORMAL LYMPHS % (MANUAL) 0 %
[2019-02-15 09:33] LABS: BAND NEUTROPHILS % (MANUAL) 2 %; LYMPHOCYTES # (MANUAL) 0.3 10^3/uL (1.5-3.5); LYMPHOCYTES % (MANUAL) 4 %; METAMYELOCYTES % (MANUAL) 1 %; MONOCYTES # (MANUAL) 0.3 10^3/uL (0.0-1.0); NEUTROPHILS # (MANUAL) 7.5 10^3/uL (1.5-6.6); NEUTROPHILS % (MANUAL) 89 %
[2019-02-15 09:35] LABS: PLATELET ESTIMATE, MANUAL NORMAL (130-450,000) (NORMAL); PLATELET MORPHOLOGY RARE GIANT PLATELETS (NORMAL)
[2019-02-15 09:36] LABS: DIFFERENTIAL COMMENT MANUAL DIFFERENTIAL
[2019-02-15 09:42] VITALS: BP 137/78
== END 2019-02-15 09:41 | disposition home or self-care (01) ==
LOC: ED 08:06
DX: J45.901 Unspecified asthma with (acute) exacerbation (principal); I10 Essential (primary) hypertension
CPT/HCPCS: 36415; 71046; 80048; 85025; 94640; 96374; 99283

== ENCOUNTER 2019-04-13 11:11 | Emergency (ER) | payer OTHER ==
--- NOTE | 2019-04-13 11:59 | ED Physician Documentation ---
PD HPI URI - Stated complaint Stated Complaint: WHEEZING/COUGHING - Chief complaint Chief Complaint: Resp - History obtained from History obtained from: Patient - History of Present Illness Timing - onset: How many days ago (4) Timing duration: Days (4) Timing details: Gradual onset, Still present Associated symptoms: Productive cough (yellow sputum; has taken Zithromax, previous Rx for when he gets flare ups, but has not noted improvement. and he has increased his prednisone from 40 to 60 mg.), Dyspnea (increased wheezing from his baseline). 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 Has tried many different meds.) Review of Systems Constitutional: reports: Myalgias. denies: Fever, Chills Nose: reports: Congestion. denies: Rhinorrhea / runny nose Throat: denies: Sore throat Cardiac: denies: Chest pain / pressure Respiratory: reports: Dyspnea, Cough, Wheezing GI: denies: Nausea, Vomiting, Diarrhea Skin: denies: Rash, Lesions Neurologic: denies: Headache PD PAST MEDICAL HISTORY - Past Medical History Cardiovascular: Hypertension Respiratory: Asthma Neuro: None Endocrine/Autoimmune: None GI: GERD : None HEENT: None Psych: None Musculoskeletal: None - Past Surgical History Past Surgical History: No General: Colonoscopy - Present Medications Home Medications: Ambulatory Orders Medication Instructions Recorded Confirmed Acetaminophen [Tylenol] 650 mg PO Q4HR PRN 03/30/18 03/30/18 Albuterol Sulfate [Proair Hfa 1 - 2 puffs INH Q4H PRN 03/30/18 03/30/18 Inhaler] Beclomethasone 80 Mcg [Qvar 80] 2 puffs INH BID 03/30/18 03/30/18 Calcium Citrate 600 mg PO DAILY 03/30/18 03/30/18 Cholecalciferol (Vitamin D3) 2,000 tab PO DAILY 03/30/18 03/30/18 [Vitamin D3] Fexofenadine HCl 90 mg PO DAILY 03/30/18 03/30/18 Mometasone/Formoterol [Dulera 200 2 puffs INH BID 03/30/18 03/30/18 Mcg/5 Mcg Inhaler] Montelukast [Singulair] 10 mg PO QPM 03/30/18 03/30/18 Naproxen 250 mg PO Q12H PRN 03/30/18 03/30/18 Omeprazole [PriLOSEC] 20 mg PO QDAC 03/30/18 03/30/18 Telmisartan [Micardis] 40 mg PO DAILY 03/30/18 03/30/18 Tiotropium [place] [Spiriva] 1 puffs INH DAILY 03/30/18 03/30/18 raNITIdine [Zantac] 150 tab PO BID 03/30/18 03/30/18 Fluticasone [Flonase] 02/15/19 dexAMETHasone [Decadron] 8 mg PO DAILY PRN #10 tablet 02/15/19 predniSONE [Prednisone] 55 mg PO DAILY 02/15/19 Benzonatate [Tessalon Perle] 100 - 200 mg PO TID PRN #30 capsule 04/13/19 Doxycycline Hyclate 100 mg PO BID #20 capsule 04/13/19 Ipratropium [Atrovent] 0.5 mg INH Q6H #30 neb 04/13/19 guaiFENesin/CODEINE [Robitussin AC] 10 ml PO Q6H PRN #240 ml 04/13/19 - Allergies Allergies/Adverse Reactions: Allergies Allergy/AdvReac Type Severity Reaction Status Date / Time aspirin Allergy Unknown Verified 04/13/19 11:23 ibuprofen AdvReac Respiratory Verified 04/13/19 11:23 - Social History Does the pt smoke?: No Smoking Status: Never smoker Does the pt drink ETOH?: Yes Does the pt have substance abuse?: No - Immunizations Immunizations are current?: Yes - POLST Patient has POLST: No POLST Status: Full Code PD ED PE NORMAL - Vitals Vital signs reviewed: Yes - General General: Alert and oriented X 3, No acute distress, Well developed/nourished, Other (able to talk in sentences. No accessory muscle use. Audible wheezing noted. Puffy face c/w fci steroids. ) - HEENT HEENT: Pharynx benign - Neck Neck: Supple, no meningeal sign, No adenopathy - Cardiac Cardiac: No murmur. No: RRR (tachycardic but regular) - Respiratory Respiratory: No: Clear bilaterally (no coarse sounds but has diffuse wheezing holoexpiratory) - Abdomen Abdomen: Soft, Non tender - Back Back: No CVA TTP - Derm Derm: Normal color, Warm and dry - Extremities Extremities: No tenderness to palpate, Normal ROM s pain, No edema, No calf tenderness / cord - Neuro Neuro: Alert and oriented X 3, No motor deficit, Normal speech Results - Vitals Vitals: Vital Signs - 24 hr 04/13/19 04/13/19 04/13/19 11:20 12:43 13:22 Temperature 36.6 C Heart Rate 116 H 110 H 98 Respiratory 18 18 20 Rate Blood Pressure 149/98 H 127/80 O2 Saturation 99 98 04/13/19 04/13/19 13:41 14:46 Temperature 36.6 C Heart Rate 114 H 106 H Respiratory 22 18 Rate Blood Pressure 135/82 H O2 Saturation 99 Oxygen O2 Source Room air PD MEDICAL DECISION MAKING - ED course Complexity details: considered differential (He is feeling some better with nebs here and can do them at home, sats are good. He says typically abx and increased steroids help, so will see how he does into tomorrow. ), d/w patient Departure - Departure Disposition: Home, Self Care Clinical Impression: Exacerbation of asthma Qualifiers: Asthma severity: moderate Asthma persistence: persistent Qualified Code(s): J45.41 - Moderate persistent asthma with (acute) exacerbation Condition: Stable Record reviewed to determine appropriate education?: Yes Follow-Up: Delvin Zhao MD [Primary Care Provider] - Prescriptions: Benzonatate [Tessalon Perle] 100 - 200 mg PO TID PRN #30 capsule PRN Reason: Cough Doxycycline Hyclate 100 mg PO BID #20 capsule guaiFENesin/CODEINE [Robitussin AC] 10 ml PO Q6H PRN #240 ml PRN Reason: Cough Ipratropium [Atrovent] 0.5 mg INH Q6H #30 neb Comments: Continue usual medications. You can combine the ipratropium with your albuterol to get an improved effect. Add doxycycline antibiotic as directed. 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 For the cough use Tessalon and codeine cough medicine as needed. Recheck if not improving over the next few days. 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 Discharge Date/Time: 04/13/19 15:22
[2019-04-13] MEDS ORDERED: cefTRIAXone 500 MG VIAL IVP STA (12:16)
[2019-04-13] MEDS ORDERED: DEXAMETHASONE 10 MG/ML VIAL IVP STA (12:16)
[2019-04-13] MEDS ORDERED: DOXYCYCLINE 100 MG TABLET PO STA (12:16)
[2019-04-13] MEDS ORDERED: IPRATROPIUM/ALBUTEROL 3 ML NEB INH STA (12:16)
[2019-04-13] MEDS ORDERED: MAGNESIUM SULFATE 2 GRAM 2 GM/50 ML BAG IV ONE (12:20)
[2019-04-13] MEDS ORDERED: ALBUTEROL NEB 2.5 MG/3 ML INH STA (13:20)
[2019-04-13 14:47] VITALS: BP 135/82
== END 2019-04-13 15:22 | disposition home or self-care (01) ==
LOC: ED 11:11
DX: J45.41 Moderate persistent asthma with (acute) exacerbation (principal); I10 Essential (primary) hypertension
CPT/HCPCS: 94640; 96365; 96375; 99283; 99284; A9270

== ENCOUNTER 2019-08-10 14:04 | Emergency (ER) | payer OTHER ==
[2019-08-10] MEDS ORDERED: oxyCODONE 5 MG TABLET PO STA (14:17)
--- NOTE | 2019-08-10 14:18 | ED Physician Documentation ---
PD HPI BACK INJURY - Stated complaint Stated Complaint: BACK INJ - History obtained from History obtained from: Patient - History of Present Illness Location: Lower (8 days ago he was moving furniture and felt a pull or a pop in his back. Since then he has had persistent pain despite trying Tylenol and ibuprofen. Its in the upper lumbar spine just to the right of midline. No other injuries. No increased shortness of breath. Of note he has chronic severe asthma for which he is maintained on chronic oral steroids.) Review of Systems Constitutional: denies: Fever, Chills GI: denies: Abdominal Pain, Nausea, Vomiting Musculoskeletal: denies: Extremity pain, Pain with weight bearing Neurologic: denies: Generalized weakness, Focal weakness, Numbness PD PAST MEDICAL HISTORY - Past Medical History Cardiovascular: Hypertension Respiratory: Asthma Neuro: None Endocrine/Autoimmune: None GI: GERD : None HEENT: None Psych: None Musculoskeletal: None - Past Surgical History Past Surgical History: No General: Colonoscopy - Present Medications Home Medications: Ambulatory Orders Medication Instructions Recorded Confirmed Acetaminophen [Tylenol] 650 mg PO Q4HR PRN 03/30/18 03/30/18 Albuterol Sulfate [Proair Hfa 1 - 2 puffs INH Q4H PRN 03/30/18 03/30/18 Inhaler] Beclomethasone 80 Mcg [Qvar 80] 2 puffs INH BID 03/30/18 03/30/18 Calcium Citrate 600 mg PO DAILY 03/30/18 03/30/18 Cholecalciferol (Vitamin D3) 2,000 tab PO DAILY 03/30/18 03/30/18 [Vitamin D3] Fexofenadine HCl 90 mg PO DAILY 03/30/18 03/30/18 Mometasone/Formoterol [Dulera 200 2 puffs INH BID 03/30/18 03/30/18 Mcg/5 Mcg Inhaler] Montelukast [Singulair] 10 mg PO QPM 03/30/18 03/30/18 Naproxen 250 mg PO Q12H PRN 03/30/18 03/30/18 Omeprazole [PriLOSEC] 20 mg PO QDAC 03/30/18 03/30/18 Telmisartan [Micardis] 40 mg PO DAILY 03/30/18 03/30/18 Tiotropium [place] [Spiriva] 1 puffs INH DAILY 03/30/18 03/30/18 raNITIdine [Zantac] 150 tab PO BID 03/30/18 03/30/18 Fluticasone [Flonase] 02/15/19 dexAMETHasone [Decadron] 8 mg PO DAILY PRN #10 tablet 02/15/19 predniSONE [Prednisone] 55 mg PO DAILY 02/15/19 Benzonatate [Tessalon Perle] 100 - 200 mg PO TID PRN #30 capsule 04/13/19 Doxycycline Hyclate 100 mg PO BID #20 capsule 04/13/19 Ipratropium [Atrovent] 0.5 mg INH Q6H #30 neb 04/13/19 guaiFENesin/CODEINE [Robitussin AC] 10 ml PO Q6H PRN #240 ml 04/13/19 Oxycodone HCl/Acetaminophen 1 - 2 each PO Q6H PRN #30 tablet 08/10/19 [Percocet 5-325 mg Tablet] - Allergies Allergies/Adverse Reactions: Allergies Allergy/AdvReac Type Severity Reaction Status Date / Time aspirin Allergy Unknown Verified 08/10/19 14:06 ibuprofen AdvReac Respiratory Verified 08/10/19 14:06 - Social History Does the pt smoke?: No Smoking Status: Never smoker Does the pt drink ETOH?: Yes Does the pt have substance abuse?: No - Immunizations Immunizations are current?: Yes - POLST Patient has POLST: No POLST Status: Full Code PD ED PE NORMAL - Vitals Vital signs reviewed: Yes - General General: Alert and oriented X 3, Other (Steroid facies) - Back Back: Other (Mild tenderness to the right upper paralumbar area not in the midline. The patient has equal and normal Achilles and patellar reflexes bilaterally. Normal sensation in all areas of the legs. Patient denies saddle anesthesia. Normal strength in flexion-extension at the ankles, knees, and flexion of the hips.) - Neuro Neuro: Alert and oriented X 3, Normal speech Results - Vitals Vitals: Vital Signs - 24 hr 08/10/19 14:06 Temperature 36.5 C Heart Rate 115 H Respiratory 16 Rate Blood Pressure 159/90 H O2 Saturation 98 Oxygen O2 Source Room air - Rads (name of study) L spine xr Radiology: EMP read contemporaneously (Mild T12 compression fracture) Departure - Departure Disposition: 01 Home, Self Care Clinical Impression: Chronic steroid use T12 compression fracture Qualifiers: Encounter type: initial encounter Qualified Code(s): S22.080A - Wedge compression fracture of T11-T12 vertebra, initial encounter for closed fracture Osteopenia Qualifiers: Osteopenia location: unspecified Qualified Code(s): M85.80 - Other specified disorders of bone density and structure, unspecified site Condition: Good Record reviewed to determine appropriate education?: Yes Instructions: ED Fx Comp Vertebral Prescriptions: Oxycodone HCl/Acetaminophen [Percocet 5-325 mg Tablet] 1 - 2 each PO Q6H PRN #30 tablet PRN Reason: pain Comments: You can take ibuprofen when the pain is not too bad, when the pain is bad you can take the prescription narcotic. Return for new worsening symptoms. Follow- up with your doctor in a week for recheck. Do not drink or drive while taking narcotic pain medication. Note that many narcotic pain relievers also contain Tylenol/acetaminophen. Please ensure that your total dose of acetaminophen from all sources does not exceed 3 g (3000 mg) per day. You may get constipated while on this medication. Take a stool softener such as Colace twice a day while you are on it. Also add an uafo-[id number] laxative such as senna or MiraLAX on any day that you do not have a bowel movement. If you received a narcotic pain medication or sedative while in the emergency department, do not drive for the next 24 hours.
--- NOTE | 2019-08-10 15:10 | XRAY Report ---
Reason: Back injury, chronic steroid use Procedure Date: 08/10/2019 Accession Number: [id number] / [id number] Procedure: XR - Lumbar Spine 2 View CPT Code: FULL RESULT: EXAM: LUMBOSACRAL SPINE RADIOGRAPHY EXAM DATE: 08/10/2019 02:30 PM. CLINICAL HISTORY: Back injury, chronic steroid use. COMPARISONS: None. TECHNIQUE: 2 views. FINDINGS: Alignment: Normal. No spondylolisthesis or scoliosis. Bones: Five [id number] lumbar vertebral bodies are present. No fractures or bone lesions. Disks: There are small endplate osteophytes at L1-L2 and L2-L3. The disk spaces preserved. Facets: No degenerative changes. Sacroiliac Joints: Mild bilateral sacroiliac joint osteo arthritis. Soft Tissues: Normal. The visualized bowel gas pattern is normal. IMPRESSION: Mild degenerative change of the lumbar spine. RADIA ADDENDUM: 08/10/19 15:18 There is a fracture of the superior end plate of T12 proximal to 25% loss of vertebral body height. There are no other visible fractures.
[2019-08-10 15:43] VITALS: BP 142/83
== END 2019-08-10 15:42 | disposition home or self-care (01) ==
LOC: ED 14:04
DX: S22.080A Wedge compression fracture of T11-T12 vertebra, initial encounter for closed fracture (principal); X50.0XXA Overexertion from strenuous movement or load, initial encounter; Y93.89 Activity, other specified; M47.817 Spondylosis without myelopathy or radiculopathy, lumbosacral region; M85.80 Other specified disorders of bone density and structure, unspecified site; I10 Essential (primary) hypertension; J45.909 Unspecified asthma, uncomplicated; Z79.52 Long term (current) use of systemic steroids
CPT/HCPCS: 72100; 99283; 99284; A9270

== ENCOUNTER 2019-10-04 19:47 | Emergency (ER) | payer OTHER ==
[2019-10-04 19:56] VITALS: BP 193/118
--- NOTE | 2019-10-04 20:11 | ED Physician Documentation ---
PD HPI DYSPNEA - Stated complaint Stated Complaint: SOA - Chief complaint Chief Complaint: Resp - History obtained from History obtained from: Patient - History of Present Illness Timing - onset: Today Timing - details: Gradual onset Pain level max: 0 Pain level now: 0 Associated symptoms: Cough, Wheezing, Chest pain / discomfort. No: Fever Similar symptoms before: Diagnosis (asthma) - Additional information Additional information: c/o Im having life-threatening asthma: dyspnea, wheezing, tight chested (per patient) since this morning onset because of smell of cheese when he was at [facility]. he took prednisone 35mg followed by 30mg more. he subsequently went to a [employer] store and said he initially couldnt smell well due to nasal congestion, but on drive home, he says car smelled like (expletive), and he feels this odor triggered worsening asthma exacerbation. patient says he had rapid onset dyspnea and thus he took 20 mg more prednisone,and used neb treatments at least 3 times. Review of Systems Constitutional: reports: Reviewed and negative Ears: reports: Reviewed and negative Nose: reports: Sinus pressure / pain Throat: reports: Swallowed foreign body Cardiac: reports: Reviewed and negative Respiratory: reports: Dyspnea, Cough, Wheezing PD PAST MEDICAL HISTORY - Past Medical History Cardiovascular: Hypertension Respiratory: Asthma Neuro: None Endocrine/Autoimmune: None GI: GERD : None HEENT: None Psych: None Musculoskeletal: None - Past Surgical History Past Surgical History: No General: Colonoscopy - Present Medications Home Medications: Ambulatory Orders Medication Instructions Recorded Confirmed Acetaminophen [Tylenol] 650 mg PO Q4HR PRN 03/30/18 03/30/18 Albuterol Sulfate [Proair Hfa 1 - 2 puffs INH Q4H PRN 03/30/18 03/30/18 Inhaler] Beclomethasone 80 Mcg [Qvar 80] 2 puffs INH BID 03/30/18 03/30/18 Calcium Citrate 600 mg PO DAILY 03/30/18 03/30/18 Cholecalciferol (Vitamin D3) 2,000 tab PO DAILY 03/30/18 03/30/18 [Vitamin D3] Fexofenadine HCl 90 mg PO DAILY 03/30/18 03/30/18 Mometasone/Formoterol [Dulera 200 2 puffs INH BID 03/30/18 03/30/18 Mcg/5 Mcg Inhaler] Montelukast [Singulair] 10 mg PO QPM 03/30/18 03/30/18 Naproxen 250 mg PO Q12H PRN 03/30/18 03/30/18 Omeprazole [PriLOSEC] 20 mg PO QDAC 03/30/18 03/30/18 Telmisartan [Micardis] 40 mg PO DAILY 03/30/18 03/30/18 Tiotropium [place] [Spiriva] 1 puffs INH DAILY 03/30/18 03/30/18 raNITIdine [Zantac] 150 tab PO BID 03/30/18 03/30/18 Fluticasone [Flonase] 02/15/19 dexAMETHasone [Decadron] 8 mg PO DAILY PRN #10 tablet 02/15/19 predniSONE [Prednisone] 55 mg PO DAILY 02/15/19 Benzonatate [Tessalon Perle] 100 - 200 mg PO TID PRN #30 capsule 04/13/19 Doxycycline Hyclate 100 mg PO BID #20 capsule 04/13/19 Ipratropium [Atrovent] 0.5 mg INH Q6H #30 neb 04/13/19 guaiFENesin/CODEINE [Robitussin AC] 10 ml PO Q6H PRN #240 ml 04/13/19 Oxycodone HCl/Acetaminophen 1 - 2 each PO Q6H PRN #30 tablet 08/10/19 [Percocet 5-325 mg Tablet] Methocarbamol [Robaxin] 500 mg PO Q6H PRN #20 tablet 10/04/19 - Allergies Allergies/Adverse Reactions: Allergies Allergy/AdvReac Type Severity Reaction Status Date / Time aspirin Allergy Unknown Verified 08/10/19 14:06 ibuprofen AdvReac Respiratory Verified 08/10/19 14:06 - Social History Does the pt smoke?: No Smoking Status: Never smoker Does the pt drink ETOH?: Yes Does the pt have substance abuse?: No - Immunizations Immunizations are current?: Yes - POLST Patient has POLST: No POLST Status: Full Code PD ED PE NORMAL - Vitals Vital signs reviewed: Yes - General General: Alert and oriented X 3, No acute distress, Well developed/nourished, Other (hypo,anic, speaks in markedly long sentences and it is diffuficult to hold any semblence of conversation without frequently interrupting him) - HEENT HEENT: PERRL, EOMI - Neck Neck: Supple, no meningeal sign - Cardiac Cardiac: No murmur, No gallop, No rub - Respiratory Respiratory: No respiratory distress, Clear bilaterally - Abdomen Abdomen: Soft, Non tender - Derm Derm: Normal color, Warm and dry PD ED PE EXPANDED - Cardiac Cardiac: Tachy, Regular Rhythm Results - Vitals Vitals: Oxygen O2 Source Room air PD MEDICAL DECISION MAKING - ED course Complexity details: reviewed old records, re-evaluated patient, considered differential, d/w patient, d/w family ED course: speaking in long, full sentences and difficult to have meaningful, productive discussion with him regarding HPI due to hypomania, which I suspect is due to overuse of his steroids and his neb treatments. He is asking for a file to be reported against the [employer], as he feels certain that the odor in the store caused his asthma exacerbation. he has 98-100% pulse ox during ED stay with clear lungs Bilaterally with good air movement and no audible wheezes throughout. further testing and/or treatment is not indicated at this time although I recommended PO ativan, as he was notably hypomanic. He agrees with this medication, also requests methacarbomol. Departure - Departure Disposition: 01 Home, Self Care Clinical Impression: Back spasm Asthma Qualifiers: Asthma severity: moderate Asthma persistence: unspecified Asthma complication type: with acute exacerbation Qualified Code(s): J45.901 - Unspecified asthma with (acute) exacerbation Condition: Good Instructions: ED Reactive Airway Disease, ED Spasm Back No Trauma Prescriptions: Methocarbamol [Robaxin] 500 mg PO Q6H PRN #20 tablet PRN Reason: Spasms Discharge Date/Time: 10/04/19 20:49
[2019-10-04] MEDS ORDERED: LORazepam 1 MG TABLET PO STA (20:37)
== END 2019-10-04 20:49 | disposition home or self-care (01) ==
LOC: ED 19:47
DX: J45.901 Unspecified asthma with (acute) exacerbation (principal); M62.830 Muscle spasm of back; I10 Essential (primary) hypertension; F30.8 Other manic episodes
CPT/HCPCS: 99282; 99284; J8499

== ENCOUNTER 2019-11-03 18:11 | Inpatient (IN) | payer OTHER ==
[2019-11-03] MEDS ORDERED: oxyCODONE 5 MG TABLET PO STA (18:39)
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
--- NOTE | 2019-11-03 19:51 | CT Report ---
Reason: chest wall inj Procedure Date: 11/03/2019 Accession Number: [id number] / [id number] Procedure: CT - CHEST WO CPT Code: Final Report FULL RESULT: EXAM: CT CHEST EXAM DATE: 11/03/2019 07:14 PM. CLINICAL HISTORY: Chest wall inj. COMPARISONS: None. TECHNIQUE: Routine helical CT imaging was performed through the chest. IV contrast: None. Reconstructions: Coronal and sagittal. In accordance with CT protocol optimization, one or more of the following dose reduction techniques were utilized for this exam: automated exposure control, adjustment of mA and/or KV based on patient size, or use of iterative reconstructive technique. FINDINGS: Lungs/Pleura: Ill-defined ground glass opacities in bilateral perihilar location, likely represent pulmonary contusion in clinical setting of trauma. No nodules, bronchial thickening, consolidation, or edema. Pulmonary vasculature is normal. No pericardial or pleural effusion. No pneumothorax. Mediastinum: Normal. No adenopathy or masses. The heart and great vessels are normal. Bones: An acute displaced transverse fracture is seen through sternal body with trace presternal and post sternal soft tissue stranding. No focal hematoma. Age-indeterminate Wedge compression fracture deformities seen at T7 T8 T11 and T12 levels with 25% loss of vertebral body heights. Stable fractures, no retropulsion. Abdomen: Unremarkable. Other: None. IMPRESSION: An acute displaced transverse fracture through sternal body with trace presternal and post sternal soft tissue stranding. No focal hematoma. Age-indeterminate wedge compression fracture deformities at T7 T8 T11 and T12 levels with 25% loss of vertebral body heights. Stable fractures, no retropulsion. Ill-defined ground glass opacities in bilateral perihilar location, likely represent pulmonary contusion in clinical setting of trauma. RADIA
[2019-11-03 20:18] LABS: BASOPHILS % (AUTO) 0.3 %; HGB - HEMOGLOBIN 12.2 g/dL (14.0-18.0); LYMPHOCYTES # (AUTO) 0.6 10^3/uL (1.5-3.5); LYMPHOCYTES % (AUTO) 4.7 %; MEAN CORPUSCULAR HEMOGLOBIN 29.3 pg (27.0-31.0); MEAN CORPUSCULAR HGB CONC 31.9 g/dL (32.0-36.0); MEAN CORPUSCULAR VOLUME 91.8 fL (80.0-94.0); MEAN PLATELET VOLUME 8.9 fL (7.4-11.4); MONOCYTES # (AUTO) 0.8 10^3/uL (0.0-1.0); MONOCYTES % (AUTO) 6.2 %; NEUTROPHILS # (AUTO) 11.2 10^3/uL (1.5-6.6); NEUTROPHILS % (AUTO) 86.3 %; PLT - PLATELET COUNT 343 10^3/uL (130-450); RED BLOOD COUNT 4.16 10^6/uL (4.70-6.10); RED CELL DISTRIBUTION WIDTH 14.5 % (12.0-15.0)
[2019-11-03 20:30] LABS: ALBUMIN 3.6 g/dL (3.2-5.5); ALBUMIN/GLOBULIN RATIO 1.2 (1.0-2.2); BILIRUBIN,TOTAL 0.8 mg/dL (0.2-1.0); CALCIUM 8.7 mg/dL (8.5-10.3); CREATININE 0.9 mg/dL (0.6-1.2); TOTAL PROTEIN 6.7 g/dL (6.7-8.2)
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
[2019-11-03] MEDS ORDERED: SODIUM CHLORIDE FLUSH 0.9% 10 ML SYRINGE IVP PRN (22:13)
[2019-11-03] MEDS: oxyCODONE 5 MG TABLET PO PRN (23:29)
[2019-11-03] MEDS: SODIUM CHLORIDE FLUSH 0.9% 10 ML SYRINGE IVP SCH (23:32)
[2019-11-03] MEDS: IPRATROPIUM/ALBUTEROL 3 ML NEB INH PRN (23:45)
[2019-11-04] MEDS ORDERED: ALBUTEROL NEB 2.5 MG/3 ML INH ONE (00:32)
[2019-11-04] MEDS: BUDESONIDE 0.5 MG/2 ML NEB INH SCH ×3 (01:00→15:44)
[2019-11-04] MEDS: IPRATROPIUM/ALBUTEROL 3 ML NEB INH PRN ×4 (03:20→13:20)
[2019-11-04] MEDS: oxyCODONE 5 MG TABLET PO PRN ×5 (03:55→20:20)
[2019-11-04] MEDS: FORMOTEROL FUMARATE NEB 20 MCG/2 ML INH SCH ×2 (06:02→15:44)
[2019-11-04] MEDS: PANTOPRAZOLE 40 MG TABLET PO SCH (06:05)
[2019-11-04] MEDS ORDERED: BUDESONIDE 0.5 MG/2 ML NEB INH SCH (07:00)
[2019-11-04] MEDS: ALBUTEROL NEB 2.5 MG/3 ML INH PRN ×3 (07:20→12:20)
[2019-11-04 07:23] LABS: BASOPHILS % (AUTO) 0.3 %; EOSINOPHILS % (AUTO) 0.1 %; HGB - HEMOGLOBIN 12.5 g/dL (14.0-18.0); LYMPHOCYTES % (AUTO) 9.9 %; MEAN CORPUSCULAR HEMOGLOBIN 29.6 pg (27.0-31.0); MEAN CORPUSCULAR HGB CONC 31.3 g/dL (32.0-36.0); MEAN CORPUSCULAR VOLUME 94.3 fL (80.0-94.0); MEAN PLATELET VOLUME 8.7 fL (7.4-11.4); MONOCYTES # (AUTO) 0.9 10^3/uL (0.0-1.0); MONOCYTES % (AUTO) 8.2 %; NEUTROPHILS # (AUTO) 8.2 10^3/uL (1.5-6.6); NEUTROPHILS % (AUTO) 78.4 %; PLT - PLATELET COUNT 332 10^3/uL (130-450); RED BLOOD COUNT 4.23 10^6/uL (4.70-6.10); RED CELL DISTRIBUTION WIDTH 14.5 % (12.0-15.0); WHITE BLOOD COUNT 10.4 x10^3/uL (4.8-10.8)
[2019-11-04 07:40] LABS: CALCIUM 8.6 mg/dL (8.5-10.3); CREATININE 0.9 mg/dL (0.6-1.2)
[2019-11-04] MEDS: guaiFENesin 600 MG TABLET PO SCH ×2 (08:09→21:51)
[2019-11-04] MEDS: predniSONE 20 MG TABLET PO SCH (08:10)
[2019-11-04] MEDS: INSULIN ASPART 300 UNIT/3 ML PEN SUBQ SCH ×4 (08:12→21:56)
[2019-11-04] MEDS: SODIUM CHLORIDE FLUSH 0.9% 10 ML SYRINGE IVP SCH ×3 (08:12→23:53)
--- NOTE | 2019-11-04 09:21 | PROVIDER PROGRESS NOTE ---
Assessment/Plan - Problem List (1) Sternal fracture Qualifiers: Encounter type: subsequent encounter Sternal location: body of sternum Fracture type: closed Fracture healing: with routine healing Qualified Co de(s): S22.22XD - Fracture of body of sternum, subsequent encounter for fracture with routine healing Assessment/Plan: doing well clinically with less pain and tenderness; rec continue symptomatic treatment (2) Pulmonary contusion Qualifiers: Encounter type: subsequent encounter Laterality: bilateral Qualified Code(s): S27.322D - Contusion of lung, bilateral, subsequent encounter Assessment/Plan: oxygen requirement appears to have increased; rec: repeat CXR today, pulmonary toilet, OOB as deacon; ow as per hospitalists. - Current Meds Current Meds: Current Medications Generic Name Dose Route Start Last Admin Trade Name Freq PRN Reason Stop Dose Admin Albuterol 2.5 mg 11/03/19 22:16 11/04/19 07:47 INH 2.5 mg RTQ4H PRN Administration Wheezing Albuterol/Ipratropium 3 ml 11/03/19 22:16 11/04/19 05:48 Duoneb INH 3 ml Q4HR PRN Administration Wheezing Budesonide 0.5 mg 11/04/19 01:08 11/04/19 05:48 Pulmicort INH 0.5 mg RTBID DARCIE Administration Formoterol Fumarate 20 mcg 11/04/19 07:00 11/04/19 06:02 Perforomist INH 20 mcg RTBID DARCIE Administration Guaifenesin 1,200 mg 11/04/19 09:00 11/04/19 08:09 Mucinex PO 1,200 mg BID DARCIE Administration Insulin Aspart 1 - 5 unit 11/04/19 08:00 11/04/19 08:12 Novolog SUBQ 1 unit 0800,1200,1700,2100 DARCIE Administration Protocol Oxycodone HCl 5 mg 11/03/19 22:13 11/04/19 08:09 Roxicodone PO 5 mg Q4HR PRN Administration Pain 5 to 7 Pantoprazole Sodium 40 mg 11/04/19 07:00 11/04/19 06:05 Protonix PO 40 mg QDAC DARCIE Administration Prednisone 30 mg 11/04/19 08:00 11/04/19 08:10 Deltasone PO 30 mg DAILYWM DARCIE Administration Sodium Chloride 10 ml 11/04/19 01:00 11/04/19 08:12 Normal Saline Flush 0.9% IVP 10 ml 0100,0900,1700 [facility] Administration - Lab Result Fish Bone Diagrams: 11/04/19 07:15 11/04/19 07:15 - Additional Planning Condition/Complexity: Stable My Orders: My Active Orders 11/04/19 09:17 Chest 2 View X-Ray [XR] Routine Plan Discussed with:: Patient, Family, Other (hospitalists) Time Spent: 15-30 minutes Subjective - Subjective Patient Reports: Cough (persistent, productive), Chest Pain (improved), Shor tness of Breath (slightly worse especially with activity) Objective Vital Signs: Vital Signs - 24 hr 11/03/19 11/03/19 11/03/19 18:24 19:41 21:33 Temperature 36.7 C Heart Rate 123 H 114 H 113 H Heart Rate [ Brachial] Respiratory 18 18 19 Rate Blood Pressure 130/82 H 139/100 H 155/97 H Blood Pressure [Left Brachial artery] O2 Saturation 91 L 92 93 11/03/19 11/03/19 11/03/19 22:28 23:18 23:39 Temperature 36.4 C L 36.2 C L Heart Rate 116 H Heart Rate [ 114 H 115 H Brachial] Respiratory 20 20 20 Rate Blood Pressure Blood Pressure 166/99 H 155/94 H [Left Brachial artery] O2 Saturation 97 95 11/04/19 11/04/19 11/04/19 00:46 03:15 03:16 Temperature 36.4 C L Heart Rate 116 H Heart Rate [ 120 H 115 H Brachial] Respiratory 20 26 H 23 Rate Blood Pressure Blood Pressure 150/82 H [Left Brachial artery] O2 Saturation 85 L 94 11/04/19 11/04/19 11/04/19 03:21 05:53 07:25 Temperature Heart Rate 116 H 119 H 126 H Heart Rate [ Brachial] Respiratory 20 20 28 H Rate Blood Pressure Blood Pressure [Left Brachial artery] O2 Saturation Oxygen O2 Source Nasal cannula I&O (Last 24 Hrs): Intake and Output Totals x24h 11/02/19 11/03/19 11/04/19 23:59 23:59 23:59 Intake Total 200 Output Total 600 Balance -400 General: Alert, Oriented x3, Cooperative (denies new c/o pain or other sx) Respiratory: Wheezes (bilaterally; sat dropped to 85 last night; now 94 on 5 l/min by nc), Rhonchi, Other (tender over mid sternum and right anterior parasternal region but no crepitus, bony instability or obvious soft tissue swelling or ecchymosis at present) Abdomen: Soft, No tenderness, No hepatospenomegaly, No masses Extremities: No tenderness/swelling - Results Results: Laboratory Results WBC 10.4 x10^3/uL (4.8-10.8) 11/04/19 07:15 RBC 4.23 10^6/uL (4.70-6.10) L 11/04/19 07:15 Hgb 12.5 g/dL (14.0-18.0) L 11/04/19 07:15 Hct 39.9 % (42.0-52.0) L 11/04/19 07:15 MCV 94.3 fL (80.0-94.0) H 11/04/19 07:15 MCH 29.6 pg (27.0-31.0) 11/04/19 07:15 MCHC 31.3 g/dL (32.0-36.0) L 11/04/19 07:15 RDW 14.5 % (12.0-15.0) 11/04/19 07:15 Plt Count 332 10^3/uL (130-450) 11/04/19 07:15 MPV 8.7 fL (7.4-11.4) 11/04/19 07:15 Neut # (Auto) 8.2 10^3/uL (1.5-6.6) H 11/04/19 07:15 Lymph # (Auto) 1.0 10^3/uL (1.5-3.5) L 11/04/19 07:15 [place] # (Auto) 0.9 10^3/uL (0.0-1.0) 11/04/19 07:15 Eos # (Auto) 0.0 10^3/uL (0.0-0.7) 11/04/19 07:15 Baso # (Auto) 0.0 10^3/uL (0.0-0.1) 11/04/19 07:15 Absolute Nucleated RBC 0.03 x10^3/uL 11/04/19 07:15 Nucleated RBC % 0.3 /100WBC 11/04/19 07:15 Sodium 134 mmol/L (135-145) L 11/04/19 07:15 Potassium 3.8 mmol/L (3.5-5.0) 11/04/19 07:15 Chloride 97 mmol/L (101-111) L 11/04/19 07:15 Carbon Dioxide 27 mmol/L (21-32) 11/04/19 07:15 Anion Gap 10.0 (6-13) 11/04/19 07:15 BUN 19 mg/dL (6-20) 11/04/19 07:15 Creatinine 0.9 mg/dL (0.6-1.2) 11/04/19 07:15 Estimated GFR (MDRD) 87 (>89) L 11/04/19 07:15 Glucose 139 mg/dL (70-100) H 11/04/19 07:15 POC Whole Bld Glucose 143 mg/dL (70 - 100) H 11/04/19 08:03 Calcium 8.6 mg/dL (8.5-10.3) 11/04/19 07:15 Total Bilirubin 0.8 mg/dL (0.2-1.0) 11/03/19 20:13 AST 17 IU/L (10-42) 11/03/19 20:13 ALT 34 IU/L (10-60) 11/03/19 20:13 Alkaline Phosphatase 62 IU/L (42-121) 11/03/19 20:13 Troponin I High Sens 7.5 ng/L (2.3-19.7) 11/04/19 07:15 Total Protein 6.7 g/dL (6.7-8.2) 11/03/19 20:13 Albumin 3.6 g/dL (3.2-5.5) 11/03/19 20:13 Globulin 3.1 g/dL (2.1-4.2) 11/03/19 20:13 Albumin/Globulin Ratio 1.2 (1.0-2.2) 11/03/19 20:13 Lipase 45 U/L (22-51) 11/03/19 20:13 ABX Reporting Has patient been on IV antibiotics over the past 48 hours?: No
[2019-11-04] MEDS ORDERED: HYDROmorphone 1 MG/ML CARPUJECT IVP SCH (10:00)
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
[2019-11-04 13:14] LABS: MUDS CUTOFF CONCENTRATIONS CUTOFF CONC BELOW:
[2019-11-04] MEDS: ACETAMINOPHEN 325 MG TABLET PO PRN ×3 (13:28→23:53)
[2019-11-04 13:29] LABS: ABG PCO2 38 mmHg (34-45); ABG PH 7.45 (7.35-7.45); ABG PO2 60 mmHg (80-100)
[2019-11-04 13:30] LABS: ABG BASE EXCESS 1.6 mmol/L (-2.0-3.0); ABG HCO3 25.6 mmol/L (22.0-26.0); ABG OXYGEN SATURATION 91 % (94-98); ABG TCO2 26.7 MMOL/L (21.0-29.0); ALLEN TEST POSITIVE
[2019-11-04 13:33] LABS: AMPHETAMINE SCREEN,URINE NEGATIVE (NEGATIVE); BENZODIAZEPINES SCREEN, URINE POSITIVE (NEGATIVE); COCAINE SCREEN URINE NEGATIVE (NEGATIVE); METHADONE SCREEN, URINE NEGATIVE (NEGATIVE); METHAMPHETAMINES SCREEN, URINE POSITIVE (NEGATIVE); OPIATE SCREEN, URINE POSITIVE (NEGATIVE); OXYCODONE SCREEN, URINE POSITIVE (NEGATIVE); PROPOXYPHENE SCREEN, URINE NEGATIVE (NEGATIVE); TRICYCLIC ANTIDEPRESSANT,URINE NEGATIVE (NEGATIVE)
[2019-11-04] MEDS: BENZOCAINE/MENTHOL LOZENGE MM PRN (14:22)
[2019-11-04] MEDS: LEVALBUTEROL 1.25 MG/3 ML NEB INH SCH ×3 (15:39→21:16)
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
--- NOTE | 2019-11-04 16:15 | PHARMACY PROGRESS NOTE ---
- Best Possible Medication History Admit Date and Time: 11/03/192129 Processed by: Pharmacy Medication History completed: In progress Requested records from [place] but records last updated in 2013; requested records from [facility] in [place] and have not received them as of 1599. As the person ultimately responsible for medication therapy, providers are able to order a medication from an existing home medication list in [facility] via the "Reconcile Routine" prior to Confirmation of that medication by integrated logistics support manager. Such practice is discouraged except when the physician, in their clinical judgment, deems that a medical need exists for a medication without regard to previous use.
[2019-11-04] MEDS ORDERED: IBUPROFEN 600 MG TABLET PO SCH (17:00)
[2019-11-04] MEDS: NAPROXEN 250 MG TABLET PO SCH ×2 (18:34→21:51)
[2019-11-04] MEDS: LEVALBUTEROL 1.25 MG/3 ML NEB INH PRN (23:31)
[2019-11-05] MEDS: BENZOCAINE/MENTHOL LOZENGE MM PRN (00:01)
[2019-11-05] MEDS: LEVALBUTEROL 1.25 MG/3 ML NEB INH PRN ×3 (01:36→17:43)
[2019-11-05] MEDS: oxyCODONE 5 MG TABLET PO PRN ×5 (03:17→20:57)
[2019-11-05 05:37] LABS: BASOPHILS % (AUTO) 0.2 %; EOSINOPHILS % (AUTO) 0.1 %; HGB - HEMOGLOBIN 12.7 g/dL (14.0-18.0); LYMPHOCYTES # (AUTO) 1.1 10^3/uL (1.5-3.5); LYMPHOCYTES % (AUTO) 8.7 %; MEAN CORPUSCULAR HGB CONC 31.8 g/dL (32.0-36.0); MEAN CORPUSCULAR VOLUME 94.3 fL (80.0-94.0); MONOCYTES # (AUTO) 0.8 10^3/uL (0.0-1.0); MONOCYTES % (AUTO) 6.7 %; NEUTROPHILS % (AUTO) 82.2 %; PLT - PLATELET COUNT 340 10^3/uL (130-450); RED BLOOD COUNT 4.23 10^6/uL (4.70-6.10); RED CELL DISTRIBUTION WIDTH 14.6 % (12.0-15.0); WHITE BLOOD COUNT 12.2 x10^3/uL (4.8-10.8)
[2019-11-05 05:43] LABS: CALCIUM 8.6 mg/dL (8.5-10.3); CREATININE 0.8 mg/dL (0.6-1.2)
[2019-11-05] MEDS: FORMOTEROL FUMARATE NEB 20 MCG/2 ML INH SCH ×2 (05:46→17:43)
[2019-11-05] MEDS: BUDESONIDE 0.5 MG/2 ML NEB INH SCH ×2 (05:46→17:43)
[2019-11-05] MEDS: LEVALBUTEROL 1.25 MG/3 ML NEB INH SCH ×3 (05:46→11:41)
[2019-11-05] MEDS: NAPROXEN 250 MG TABLET PO SCH ×3 (06:08→20:56)
[2019-11-05] MEDS: PANTOPRAZOLE 40 MG TABLET PO SCH (06:09)
[2019-11-05] MEDS: guaiFENesin 600 MG TABLET PO SCH ×2 (08:01→20:57)
[2019-11-05] MEDS: INSULIN ASPART 300 UNIT/3 ML PEN SUBQ SCH ×4 (08:01→20:54)
[2019-11-05] MEDS: predniSONE 20 MG TABLET PO SCH (08:01)
[2019-11-05] MEDS: SODIUM CHLORIDE FLUSH 0.9% 10 ML SYRINGE IVP SCH ×2 (08:02→17:07)
[2019-11-05] MEDS ORDERED: methylPREDNISolone SUCCINATE 40 MG/ML VIAL IVP SCH (08:35)
[2019-11-05] MEDS ORDERED: polyethylene glycoL 3350 17 GM PACKET PO PRN (09:07)
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
[2019-11-05] MEDS: polyethylene glycoL 3350 17 GM PACKET PO SCH (09:48)
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
[2019-11-05] MEDS: ACETAMINOPHEN 325 MG TABLET PO PRN ×2 (11:37→23:15)
[2019-11-05] MEDS ORDERED: methocarbamoL 500 MG TABLET PO PRN (11:40)
[2019-11-05] MEDS ORDERED: AZITHROMYCIN 250 MG TABLET PO SCH (12:00)
--- NOTE | 2019-11-05 12:55 | PHARMACY PROGRESS NOTE ---
- Best Possible Medication History Admit Date and Time: 11/03/192129 Processed by: Pharmacy Medication History completed: Yes Patient Interview: Pt interview ONLY source As the person ultimately responsible for medication therapy, providers are able to order a medication from an existing home medication list in [facility] via the "Reconcile Routine" prior to Confirmation of that medication by network support engineer. Such practice is discouraged except when the physician, in their clinical judgment, deems that a medical need exists for a medication without regard to previous use.
[2019-11-05] MEDS: CLOTRIMAZOLE 10 MG LOZENGE MM SCH ×3 (13:21→21:01)
[2019-11-05] MEDS: FAMOTIDINE 20 MG TABLET PO SCH (20:57)
[2019-11-05] MEDS ORDERED: MONTELUKAST 10 MG TABLET PO SCH (21:00)
[2019-11-05] MEDS ORDERED: MELATONIN 5 MG PO SCH (21:00)
[2019-11-05] MEDS ORDERED: busPIRone 5 MG TABLET PO SCH (21:00)
[2019-11-06] MEDS: LEVALBUTEROL 1.25 MG/3 ML NEB INH PRN ×2 (00:18→03:42)
[2019-11-06] MEDS: SODIUM CHLORIDE FLUSH 0.9% 10 ML SYRINGE IVP SCH ×2 (02:59→10:50)
[2019-11-06] MEDS: ACETAMINOPHEN 325 MG TABLET PO PRN (04:11)
[2019-11-06 06:02] LABS: BASOPHILS % (AUTO) 0.2 %; HGB - HEMOGLOBIN 12.1 g/dL (14.0-18.0); LYMPHOCYTES # (AUTO) 0.7 10^3/uL (1.5-3.5); LYMPHOCYTES % (AUTO) 6.3 %; MEAN CORPUSCULAR HEMOGLOBIN 28.9 pg (27.0-31.0); MEAN CORPUSCULAR VOLUME 93.3 fL (80.0-94.0); MEAN PLATELET VOLUME 8.9 fL (7.4-11.4); MONOCYTES # (AUTO) 0.8 10^3/uL (0.0-1.0); MONOCYTES % (AUTO) 7.2 %; NEUTROPHILS # (AUTO) 8.9 10^3/uL (1.5-6.6); NEUTROPHILS % (AUTO) 85.2 %; PLT - PLATELET COUNT 351 10^3/uL (130-450); RED BLOOD COUNT 4.18 10^6/uL (4.70-6.10); RED CELL DISTRIBUTION WIDTH 14.2 % (12.0-15.0); WHITE BLOOD COUNT 10.5 x10^3/uL (4.8-10.8)
[2019-11-06 06:10] LABS: CALCIUM 8.1 mg/dL (8.5-10.3); CREATININE 0.8 mg/dL (0.6-1.2)
[2019-11-06] MEDS: NAPROXEN 250 MG TABLET PO SCH (06:16)
[2019-11-06] MEDS: PANTOPRAZOLE 40 MG TABLET PO SCH (06:17)
[2019-11-06] MEDS: CLOTRIMAZOLE 10 MG LOZENGE MM SCH ×2 (06:19→09:22)
[2019-11-06] MEDS: FORMOTEROL FUMARATE NEB 20 MCG/2 ML INH SCH (06:27)
[2019-11-06] MEDS: BUDESONIDE 0.5 MG/2 ML NEB INH SCH (06:27)
[2019-11-06] MEDS: LEVALBUTEROL 1.25 MG/3 ML NEB INH SCH ×2 (06:27→09:10)
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
[2019-11-06 07:49] VITALS: BP 134/79
[2019-11-06] MEDS ORDERED: predniSONE 20 MG TABLET PO SCH (08:00)
[2019-11-06] MEDS ORDERED: DOCUSATE SODIUM 250 MG CAPSULE PO SCH (09:00)
[2019-11-06] MEDS ORDERED: FLUTICASONE NASAL SPRAY NAS SCH (09:00)
[2019-11-06] MEDS ORDERED: CHOLECALCIFEROL 1,000 UNIT TABLET PO SCH (09:00)
[2019-11-06] MEDS ORDERED: SENNA 8.6 MG TABLET PO SCH (09:00)
[2019-11-06] MEDS ORDERED: FEXOFENADINE 60 MG TABLET PO SCH (09:00)
[2019-11-06] MEDS: FAMOTIDINE 20 MG TABLET PO SCH (09:21)
[2019-11-06] MEDS: guaiFENesin 600 MG TABLET PO SCH (09:21)
[2019-11-06] MEDS: polyethylene glycoL 3350 17 GM PACKET PO SCH (09:22)
[2019-11-06] MEDS: INSULIN ASPART 300 UNIT/3 ML PEN SUBQ SCH (09:27)
== END 2019-11-06 10:00 | disposition home or self-care (01) | DRG 565 ==
LOC: ED 18:11 → MS2 21:30
PROVIDERS: ADMIT Internal Medicine Gastroenterology; ATTEND Nurse Practitioner
DX: S22.22XA Fracture of body of sternum, initial encounter for closed fracture (principal); J45.51 Severe persistent asthma with (acute) exacerbation; B37.0 Candidal stomatitis; F15.20 Other stimulant dependence, uncomplicated; S27.322A Contusion of lung, bilateral, initial encounter; S22.31XA Fracture of one rib, right side, initial encounter for closed fracture; V43.53XA Car driver injured in collision with pick-up truck in traffic accident, initial encounter; Y92.410 Unspecified street and highway as the place of occurrence of the external cause; J06.9 Acute upper respiratory infection, unspecified; I11.9 Hypertensive heart disease without heart failure; K21.9 Gastro-esophageal reflux disease without esophagitis; R00.0 Tachycardia, unspecified; M54.9 Dorsalgia, unspecified; G89.29 Other chronic pain; E09.9 Drug or chemical induced diabetes mellitus without complications; M48.54XD Collapsed vertebra, not elsewhere classified, thoracic region, subsequent encounter for fracture with routine healing; T38.0X5A Adverse effect of glucocorticoids and synthetic analogues, initial encounter; M85.80 Other specified disorders of bone density and structure, unspecified site; R25.2 Cramp and spasm; L98.9 Disorder of the skin and subcutaneous tissue, unspecified; Z79.84 Long term (current) use of oral hypoglycemic drugs; Z79.51 Long term (current) use of inhaled steroids; Z79.899 Other long term (current) drug therapy; Z79.52 Long term (current) use of systemic steroids
CPT/HCPCS: 36415; 36600; 71045; 71250; 80048; 80053; 80306; 82803; 83690; 84484; 85025; 93005; 93306; 94640; 94761; 99284; 99285; A9270; J1170; J7512; J7626

== ENCOUNTER 2020-02-15 10:45 | Outpatient (CLI) | payer OTHER | END 2020-02-15 10:46 | disposition EMS.NT | LOC: EMS 10:45 | PROVIDERS: ATTEND Surgery | DX: M54.5 Low back pain (principal); M79.604 Pain in right leg ==

== ENCOUNTER 2020-02-15 11:24 | Emergency (ER) | payer OTHER ==
[2020-02-15 11:44] VITALS: BP 175/105
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
[2020-02-15] MEDS: DEXAMETHASONE 10 MG/ML VIAL PO STA (12:20)
[2020-02-15] MEDS: KETOROLAC 60 MG/2 ML VIAL IM STA (12:20)
[2020-02-15] MEDS: CHERRY SYRUP 10 ML UDC PO ONE (12:20)
== END 2020-02-15 12:20 | disposition home or self-care (01) ==
LOC: ED 11:24
DX: M54.31 Sciatica, right side (principal); I10 Essential (primary) hypertension; E11.9 Type 2 diabetes mellitus without complications; J45.909 Unspecified asthma, uncomplicated
CPT/HCPCS: 96372; 99283; 99284; A9270

== ENCOUNTER 2020-02-16 19:11 | Emergency (ER) | payer OTHER ==
[2020-02-16] MEDS ORDERED: HYDROmorphone 1 MG/ML CARPUJECT IVP STA (19:31)
[2020-02-16] MEDS ORDERED: ONDANSETRON 4 MG/2 ML VIAL IVP STA (19:31)
--- NOTE | 2020-02-16 19:38 | ED Physician Documentation ---
PD HPI ABD PAIN - Stated complaint Stated Complaint: ABD PX/NAUSEA - Chief complaint Chief Complaint: Abd Pain - History obtained from History obtained from: Patient - History of Present Illness Timing - onset: Other (54-year-old gentleman with chronic severe asthma maintained on chronic steroids developed relatively sudden onset epigastric pain around 3 hours ago with dry heaves. Bowel movements have been normal. He vacillates when I ask him if this is something he is ever had before. He thinks he has but does not know what it was. Denies fevers. Does have sweats. Pain is severe. No history of abdominal surgeries.) Review of Systems Ten Systems: 10 systems reviewed and negative Constitutional: reports: Sweats (He is obviously diaphoretic. He says he is always diaphoretic from his asthma though.). denies: Fever, Chills Nose: denies: Rhinorrhea / runny nose, Congestion Cardiac: denies: Chest pain / pressure, Palpitations Respiratory: reports: Dyspnea (Not worse than any other day. He feels like his asthma is at his baseline.) PD PAST MEDICAL HISTORY - Past Medical History Cardiovascular: Hypertension Respiratory: Asthma Neuro: None Endocrine/Autoimmune: None, Type 2 diabetes GI: GERD : None HEENT: None Psych: None Musculoskeletal: None Derm: None - Past Surgical History Past Surgical History: No General: Colonoscopy HEENT: Other - Present Medications Home Medications: Ambulatory Orders Medication Instructions Recorded Confirmed Acetaminophen [Tylenol] 650 mg PO Q4HR PRN 03/30/18 11/05/19 Albuterol Sulfate [Proair Hfa 1 - 2 puffs INH Q4H PRN 03/30/18 11/05/19 Inhaler] Beclomethasone 80 Mcg [Qvar 80] 2 puffs INH BID 03/30/18 11/05/19 Calcium Citrate 1,000 mg PO QPM 03/30/18 11/05/19 Cholecalciferol (Vitamin D3) 2,000 tab PO DAILY 03/30/18 11/05/19 [Vitamin D3] Fexofenadine HCl 90 mg PO DAILY 03/30/18 11/05/19 Montelukast [Singulair] 10 mg PO QPM 03/30/18 11/05/19 Naproxen 250 mg PO Q12H PRN 03/30/18 11/05/19 Omeprazole [PriLOSEC] 20 mg PO QDAC 03/30/18 11/05/19 Telmisartan [Micardis] 40 mg PO DAILY 03/30/18 11/05/19 Fluticasone [Flonase] 2 sprays MONICA DAILY 02/15/19 11/05/19 predniSONE [Prednisone] 30 - 60 mg PO DAILY 02/15/19 11/05/19 methocarbamoL [Robaxin] 500 mg PO Q6H PRN #20 tablet 10/04/19 11/05/19 Azithromycin [Zithromax] 250 mg PO MOWEFR 11/05/19 11/05/19 Budesonide/Formoterol Fumarate 3 puffs INH BID 11/05/19 11/05/19 [Symbicort 160-4.5 Mcg Inhaler] Buspirone HCl 7.5 mg PO QPM 11/05/19 11/05/19 Ipratropium Nelson 1 spray MONICA BID 11/05/19 11/05/19 Ipratropium/Albuterol Sulfate 3 ml IH Q4H PRN 11/05/19 11/05/19 [Iprat-Albut 0.5-3(2.5) mg/3 ml] Melatonin 5 mg PO QPM 11/05/19 11/05/19 guaiFENesin [Guaifenesin] 800 mg PO BID 11/05/19 11/05/19 metFORMIN [Glucophage] 500 mg PO DAILYWM 11/05/19 11/05/19 traMADol [Ultram] 50 mg PO Q4H PRN 11/05/19 11/05/19 Clotrimazole Nicky 10 mg MM 5XD #35 lozenge 11/06/19 Famotidine [Pepcid] 20 mg PO BID #60 tablet 11/06/19 oxyCODONE [Roxicodone] 5 mg PO Q4HR PRN #20 tablet 11/06/19 Cyclobenzaprine [Flexeril] 10 mg PO TID PRN #20 tablet 02/15/20 Hydrocodone/Acetaminophen 1 - 2 each PO Q6H PRN #14 tablet 02/15/20 [Hydrocodon-Acetaminophen 5-325] Oxycodone HCl/Acetaminophen 1 - 2 each PO Q6H PRN #14 tablet 02/16/20 [Percocet 5-325 mg Tablet] Tamsulosin [Flomax] 0.4 mg PO DAILY #14 capsule 02/16/20 - Allergies Allergies/Adverse Reactions: Allergies Allergy/AdvReac Type Severity Reaction Status Date / Time aspirin Allergy Unknown Verified 02/16/20 19:14 ibuprofen AdvReac Respiratory Verified 02/16/20 19:14 pseudoephedrine AdvReac Unknown Verified 02/16/20 19:14 [From Entex T] - Social History Does the pt smoke?: No Smoking Status: Never smoker Does the pt drink ETOH?: Yes Does the pt have substance abuse?: No - Immunizations Immunizations are current?: Yes - POLST Patient has POLST: No POLST Status: Full Code PD ED PE NORMAL - Vitals Vital signs reviewed: Yes - General General: Alert and oriented X 3 (Diaphoretic; Appears uncomfortable) - Neck Neck: Supple, no meningeal sign, No bony TTP - Cardiac Cardiac: RRR, No murmur - Respiratory Respiratory: Other (Diminished with decent air motion) - Abdomen Abdomen: Other (Minimal epigastric tenderness, tinkling bowel tones, potentially somewhat distended. No severe tenderness. No surgical signs.) - Back Back: No CVA TTP, No spinal TTP - Derm Derm: Normal color, Warm and dry - Extremities Extremities: No edema, No calf tenderness / cord - Neuro Neuro: Alert and oriented X 3, Normal speech Results - Vitals Vitals: Vital Signs - 24 hr 02/16/20 19:14 Temperature 36.5 C Heart Rate 110 H Respiratory 18 Rate Blood Pressure 200/120 H O2 Saturation 99 Oxygen O2 Source Room air - EKG (time done) 1935 Rate: Rate (enter#) (110) Rhythm: Sinus tachycardia, LAE, BALA QRS: LVH Ischemia: Normal ST segments Compare to prior EKG: Unchanged from prior EKG (from 11/03/19) Computer interpretation: Agree with computer - Labs Labs: Laboratory Tests 02/16/20 02/16/20 02/16/20 19:40 19:40 19:40 WBC 11.8 H RBC 4.71 Hgb 13.0 L Hct 42.6 MCV 90.4 MCH 27.6 MCHC 30.5 L RDW 14.8 Plt Count 368 MPV 8.7 Neut # (Auto) 10.0 H Lymph # (Auto) 0.6 L [place] # (Auto) 1.1 H Eos # (Auto) 0.0 Baso # (Auto) 0.0 Absolute Nucleated RBC 0.00 Nucleated RBC % 0.0 Sodium 136 Potassium 3.5 Chloride 99 L Carbon Dioxide 27 Anion Gap 10.0 BUN 22 H Creatinine 1.2 Estimated GFR (MDRD) 63 L Glucose 239 H Calcium 8.4 L Total Bilirubin 0.5 AST 13 ALT 43 Alkaline Phosphatase 56 Troponin I High Sens 7.4 Total Protein 6.7 Albumin 3.9 Globulin 2.8 Albumin/Globulin Ratio 1.4 Lipase 41 - Rads (name of study) CT AP Radiology: EMP read contemporaneously (Left nephrolithiasis and a right 2 mm proximal ureteral stone.) PD MEDICAL DECISION MAKING - ED course ED course: 54-year-old gentleman presents with acute abdominal pain, he is diaphoretic and uncomfortable appearing. After the administration of 1 mg of Dilaudid IV he was pain-free and looking more comfortable. CT imaging demonstrates a single right ureteral stone that is causative. Departure - Departure Disposition: 01 Home, Self Care Clinical Impression: Renal colic on right side Condition: Good Record reviewed to determine appropriate education?: Yes Instructions: ED Stone Renal W Colic Prescriptions: Oxycodone HCl/Acetaminophen [Percocet 5-325 mg Tablet] 1 - 2 each PO Q6H PRN #14 tablet PRN Reason: pain Tamsulosin [Flomax] 0.4 mg PO DAILY #14 capsule Comments: Call your doctor to arrange a follow-up appointment, make the next available appointment. In the interim, return anytime if worse or if new symptoms develop.
[2020-02-16 19:49] LABS: BASOPHILS % (AUTO) 0.2 %; LYMPHOCYTES # (AUTO) 0.6 10^3/uL (1.5-3.5); LYMPHOCYTES % (AUTO) 4.7 %; MEAN CORPUSCULAR HEMOGLOBIN 27.6 pg (27.0-31.0); MEAN CORPUSCULAR HGB CONC 30.5 g/dL (32.0-36.0); MEAN CORPUSCULAR VOLUME 90.4 fL (80.0-94.0); MEAN PLATELET VOLUME 8.7 fL (7.4-11.4); MONOCYTES # (AUTO) 1.1 10^3/uL (0.0-1.0); MONOCYTES % (AUTO) 9.1 %; NEUTROPHILS % (AUTO) 84.9 %; PLT - PLATELET COUNT 368 10^3/uL (130-450); RED BLOOD COUNT 4.71 10^6/uL (4.70-6.10); RED CELL DISTRIBUTION WIDTH 14.8 % (12.0-15.0); WHITE BLOOD COUNT 11.8 x10^3/uL (4.8-10.8)
[2020-02-16] MEDS ORDERED: IOVERSOL 320 100 ML VIAL IVP ONE ×2 (20:00→20:30)
[2020-02-16 20:02] LABS: ALBUMIN 3.9 g/dL (3.2-5.5); ALBUMIN/GLOBULIN RATIO 1.4 (1.0-2.2); BILIRUBIN,TOTAL 0.5 mg/dL (0.2-1.0); CALCIUM 8.4 mg/dL (8.5-10.3); CREATININE 1.2 mg/dL (0.6-1.2); TOTAL PROTEIN 6.7 g/dL (6.7-8.2)
--- NOTE | 2020-02-16 20:41 | CT Report ---
Reason: IV only upper abd pain Procedure Date: 02/16/2020 Accession Number: [id number] / [id number] Procedure: CT - Abdomen/Pelvis W CPT Code: Final Report FULL RESULT: EXAM: CT ABDOMEN AND PELVIS EXAM DATE: 02/16/2020 08:28 PM. CLINICAL HISTORY: Upper abdominal pain. COMPARISONS: None. TECHNIQUE: Routine helical CT imaging was performed through the abdomen and pelvis. IV contrast: OPTIRAY 320. Enteric contrast: No. Reconstructions: Coronal and sagittal. In accordance with CT protocol optimization, one or more of the following dose reduction techniques were utilized for this exam: automated exposure control, adjustment of mA and/or KV based on patient size, or use of iterative reconstructive technique. FINDINGS: Lung Bases: Unremarkable. Liver: The liver demonstrates decreased attenuation. No focal lesions. Gallbladder/Bile Ducts: Unremarkable. Spleen: Normal. Pancreas: Normal. Adrenal Glands: Normal. Kidneys: There is a 2 mm stone in the proximal ureter just below the ureteropelvic junction resulting in mild pelviectasis. Additional 2 and 3 mm stone seen at the lower pole of the left kidney. The right kidney is normal. Peritoneal Cavity/Bowel: Normal. No free fluid, free air or adenopathy. No masses or acute inflammatory process. The appendix is well visualized and normal. Pelvic Organs: Normal. The bladder and visualized pelvic organs are within normal limits. Vasculature: No aneurysms or other significant abnormality. Bones: No significant abnormality. Other: None. IMPRESSION: 1. Mild left renal pelviectasis secondary to a 2 mm proximal ureteral stone. 2. Left nephrolithiasis. RADIA
[2020-02-16] MEDS ORDERED: TAMSULOSIN 0.4 MG CAPSULE PO STA (21:03)
[2020-02-16] MEDS ORDERED: oxyCODONE/ACET 5/325 Prepack 4 PO STA (21:03)
[2020-02-16 21:19] VITALS: BP 156/102
== END 2020-02-16 21:18 | disposition home or self-care (01) ==
LOC: ED 19:11
DX: N20.2 Calculus of kidney with calculus of ureter (principal); I10 Essential (primary) hypertension; E11.9 Type 2 diabetes mellitus without complications; Z79.84 Long term (current) use of oral hypoglycemic drugs
CPT/HCPCS: 36415; 74177; 80053; 83690; 84484; 85025; 93005; 96374; 99284; A9270; J1170; Q9967

== ENCOUNTER 2020-03-03 08:21 | Emergency (ER) | payer OTHER ==
[2020-03-03] MEDS ORDERED: BUPIVACAINE 0.5%-EPI 1:200000 PF 10 ML VIAL SUBQ STA (08:56)
[2020-03-03] MEDS ORDERED: HYDROmorphone 2 MG/ML VIAL IM STA (08:56)
[2020-03-03] MEDS ORDERED: methocarbamoL 500 MG TABLET PO STA (08:56)
[2020-03-03] MEDS ORDERED: ACETAMINOPHEN 325 MG TABLET PO STA (08:57)
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
[2020-03-03 09:43] VITALS: BP 149/88
[2020-03-03] MEDS ORDERED: BUPIVACAINE 0.5%-EPI 1:200000 PF 30 ML VIAL SUBQ ONE (10:00)
[2020-03-03] MEDS ORDERED: BUPIVACAINE 0.25%-EPI 1:200000 PF 30 ML VIAL SUBQ ONE (10:00)
== END 2020-03-03 09:43 | disposition home or self-care (01) ==
LOC: ED 08:21
DX: M54.41 Lumbago with sciatica, right side (principal); J45.909 Unspecified asthma, uncomplicated; Z79.51 Long term (current) use of inhaled steroids; I10 Essential (primary) hypertension; E11.9 Type 2 diabetes mellitus without complications; Z79.84 Long term (current) use of oral hypoglycemic drugs
CPT/HCPCS: 20552; 96372; 99283; 99284; A9270; J1170

== ENCOUNTER 2020-04-04 11:30 | Emergency (ER) | payer OTHER ==
--- NOTE | 2020-04-04 12:33 | ED Physician Documentation ---
PD HPI BACK PAIN - Stated complaint Stated Complaint: BACK PX - Chief complaint Chief Complaint: Back Pain - History obtained from History obtained from: Patient - History of Present Illness Timing - onset: Chronic Timing - duration: Years Timing - details: Gradual onset Pain level max: 8 Pain level now: 8 Location: Upper, Lower, Right Quality: Pain, Spasm, Similar to prior episodes Associated symptoms: No: Fever, Weakness, Numbness, Incontinent of urine, Unable to urinate, Hematuria, Incontinent of stool Recently seen: Not recently seen - Additional information Additional information: 54-year-old male with chronic back pain. States that it is worse with movement and better with rest. He states that he is out of his hydrocodone. He states that he sees his doctor on Sunday. Worse with movement and better with rest. This is the third month in a row he has run out of his pain medications. No new injury. No loss of bowel or bladder control. No fever. Review of Systems Constitutional: denies: Fever, Chills GI: denies: Vomiting, Diarrhea : denies: Unable to Void, Incontinent Skin: denies: Rash Neurologic: denies: Focal weakness, Numbness, Headache PD PAST MEDICAL HISTORY - Past Medical History Cardiovascular: Hypertension Respiratory: Asthma Neuro: None Endocrine/Autoimmune: None, Type 2 diabetes GI: GERD : None HEENT: None Psych: None Musculoskeletal: None Derm: None - Past Surgical History Past Surgical History: No General: Colonoscopy HEENT: Other - Present Medications Home Medications: Ambulatory Orders Medication Instructions Recorded Confirmed Acetaminophen [Tylenol] 650 mg PO Q4HR PRN 03/30/18 11/05/19 Albuterol Sulfate [Proair Hfa 1 - 2 puffs INH Q4H PRN 03/30/18 11/05/19 Inhaler] Beclomethasone 80 Mcg [Qvar 80] 2 puffs INH BID 03/30/18 11/05/19 Calcium Citrate 1,000 mg PO QPM 03/30/18 11/05/19 Cholecalciferol (Vitamin D3) 2,000 tab PO DAILY 03/30/18 11/05/19 [Vitamin D3] Fexofenadine HCl 90 mg PO DAILY 03/30/18 11/05/19 Montelukast [Singulair] 10 mg PO QPM 03/30/18 11/05/19 Naproxen 250 mg PO Q12H PRN 03/30/18 11/05/19 Omeprazole [PriLOSEC] 20 mg PO QDAC 03/30/18 11/05/19 Telmisartan [Micardis] 40 mg PO DAILY 03/30/18 11/05/19 Fluticasone [Flonase] 2 sprays [place] DAILY 02/15/19 11/05/19 predniSONE [Prednisone] 30 - 60 mg PO DAILY 02/15/19 11/05/19 methocarbamoL [Robaxin] 500 mg PO Q6H PRN #20 tablet 10/04/19 11/05/19 Azithromycin [Zithromax] 250 mg PO MOWEFR 11/05/19 11/05/19 Budesonide/Formoterol Fumarate 3 puffs INH BID 11/05/19 11/05/19 [Symbicort 160-4.5 Mcg Inhaler] Buspirone HCl 7.5 mg PO QPM 11/05/19 11/05/19 Ipratropium [place] 1 spray MONICA BID 11/05/19 11/05/19 Ipratropium/Albuterol Sulfate 3 ml IH Q4H PRN 11/05/19 11/05/19 [Iprat-Albut 0.5-3(2.5) mg/3 ml] Melatonin 5 mg PO QPM 11/05/19 11/05/19 guaiFENesin [Guaifenesin] 800 mg PO BID 11/05/19 11/05/19 metFORMIN [Glucophage] 500 mg PO DAILYWM 11/05/19 11/05/19 traMADol [Ultram] 50 mg PO Q4H PRN 11/05/19 11/05/19 Clotrimazole [place] 10 mg MM 5XD #35 lozenge 11/06/19 Famotidine [Pepcid] 20 mg PO BID #60 tablet 11/06/19 oxyCODONE [Roxicodone] 5 mg PO Q4HR PRN #20 tablet 11/06/19 Cyclobenzaprine [Flexeril] 10 mg PO TID PRN #20 tablet 02/15/20 Hydrocodone/Acetaminophen 1 - 2 each PO Q6H PRN #14 tablet 02/15/20 [Hydrocodon-Acetaminophen 5-325] Oxycodone HCl/Acetaminophen 1 - 2 each PO Q6H PRN #14 tablet 02/16/20 [Percocet 5-325 mg Tablet] Tamsulosin [Flomax] 0.4 mg PO DAILY #14 capsule 02/16/20 Lidocaine Patch 5% [Lidoderm Patch] 1 patch TOP DAILY PRN #10 patch 03/03/20 Tizanidine HCl 4 mg PO TID PRN #30 tablet 03/03/20 oxyCODONE [Roxicodone] 5 mg PO Q6H PRN #25 tablet 03/03/20 Hydrocodone/Acetaminophen 1 - 2 each PO Q6H PRN #10 tablet 04/04/20 [Hydrocodon-Acetaminophen 5-325] - Allergies Allergies/Adverse Reactions: Allergies Allergy/AdvReac Type Severity Reaction Status Date / Time aspirin Allergy Unknown Verified 03/03/20 08:47 ibuprofen AdvReac Respiratory Verified 03/03/20 08:47 pseudoephedrine AdvReac Unknown Verified 03/03/20 08:47 [From Entex T] - Social History Does the pt smoke?: No Smoking Status: Never smoker Does the pt drink ETOH?: Yes Does the pt have substance abuse?: No - Immunizations Immunizations are current?: Yes - POLST Patient has POLST: No POLST Status: Full Code PD ED PE NORMAL - Vitals Vital signs reviewed: Yes - General General: Alert and oriented X 3, No acute distress - HEENT HEENT: Moist mucous membranes - Neck Neck: Supple, no meningeal sign - Cardiac Cardiac: RRR - Respiratory Respiratory: No respiratory distress, Clear bilaterally - Abdomen Abdomen: Soft, Non tender, Non distended - Back Back: No spinal TTP, Other (paraspinal TTP R low lumbar) - Derm Derm: Warm and dry - Extremities Extremities: Other (Normal bilateral lower extremity patellar and ankle jerk reflexes. Normal great toe extension bilaterally. no saddle anesthesia) - Neuro Neuro: Alert and oriented X 3, No motor deficit, No sensory deficit - Psych Psych: Normal mood, Normal affect Results - Vitals Vitals: Vital Signs - 24 hr 04/04/20 04/04/20 04/04/20 11:40 11:43 12:50 Temperature 37 C 36.8 C Heart Rate 115 H 109 H 100 Respiratory 16 16 16 Rate Blood Pressure 146/87 H 145/85 H 153/82 H O2 Saturation 100 100 100 Oxygen O2 Source Room air PD MEDICAL DECISION MAKING - ED course Complexity details: reviewed old records, considered differential (No cauda equina, no spinal epidural abscess, no fracture, no aortic dissection or evidence of aneursym rupture), d/w patient ED course: Discussed with patient that it is inappropriate to continue to use the emergency department to refill his chronic pain medications. He has an appointment on Sunday and I told him he needs to come up with a better plan with his doctor for his increased pain medication use. No evidence of epidural abscess, cauda equina. No focal neurological deficits. Patient counseled regarding signs and symptoms for which I believe and urgent re-evaluation would be necessary. Patient with good understanding of and agreement to plan and is comfortable going home at this time This document was made in part using voice recognition software. While efforts are made to proofread this document, sound alike and grammatical errors may occur. Departure - Departure Disposition: Home, Self Care Clinical Impression: Chronic back pain Qualifiers: Back pain location: low back pain Back pain laterality: right Sciatica presence: with sciatica Sciatica laterality: sciatica of right side Qualified Code(s): M54.41 - Lumbago with sciatica, right side Condition: Good Instructions: ED Sciatica Follow-Up: Delvin Zhao MD [Primary Care Provider] - Within 1 week Prescriptions: Hydrocodone/Acetaminophen [Hydrocodon-Acetaminophen 5-325] 1 - 2 each PO Q6H PRN #10 tablet PRN Reason: pain Comments: We will no longer be able to refill any narcotic medication for you from the emergency department. It is your responsibility to come up with a plan with your doctor on Sunday so that you do not run out of pain medication again. This is the third month in a row you have run out of pain medications. Follow- up with your doctor for further care. Do not drink alcohol or drive while on narcotic pain medicine. Note that many narcotic pain relievers also contain tylenol/acetaminophen. Please ensure that your total dose of acetaminophen from all sources does not exceed 3 grams (3000mg) per day. You may constipated on this medication, take a stool softener such as "Colace" twice a day while you are on it. Also recommend a [id number] laxative such as senna or MiraLAX any day that you do not have a bowel movement. If you received narcotic pain medication in the emergency department, do not drive or operate machinery for the next 24 hours. Discharge Date/Time: 04/04/20 12:51
[2020-04-04 12:51] VITALS: BP 153/82
== END 2020-04-04 12:51 | disposition home or self-care (01) ==
LOC: ED 11:30
DX: M54.41 Lumbago with sciatica, right side (principal); G89.29 Other chronic pain; Z76.0 Encounter for issue of repeat prescription; I10 Essential (primary) hypertension; E11.9 Type 2 diabetes mellitus without complications; Z79.84 Long term (current) use of oral hypoglycemic drugs
CPT/HCPCS: 99282; 99284

== ENCOUNTER 2020-04-11 11:41 | Inpatient (IN) | payer OTHER ==
--- NOTE | 2020-04-11 12:14 | ED Physician Documentation ---
PD HPI ALTERED MENTAL STATUS - Stated complaint Stated Complaint: AMS - Chief complaint Chief Complaint: Neuro - History obtained from History obtained from: Patient - History of Present Illness Timing - onset: Today Timing - duration: Days (1) Timing - details: Abrupt onset, Still present Quality / character: Confused, Agitated Associated symptoms: Other (recent recurrent back pain, with Rx of Flexeril yesterday. Has had 4 tablets since yesterday, unsure time of the doses. noted new onset of confused, hallucinating, and sleepy today. He has had some cannibis edibles as well, but is not new.). No: Fever, Headache, Cough, NVD, Focal weakness Contributing factors: Diabetic, New medication. No: Anticoagulated, Recent illness, Recent injury, Intoxicated, Known psych illness Basline status: Alert and oriented X 3, Ambulatory, Independent Similar symptoms before: Has not had sx before Recently seen: Clinic ([facility] Yesterday for back pain/spasms with Rx of Flexeril. No other meds added.) Review of Systems Unable to obtain: Confused, Other (info from him limited, and from his ) Constitutional: denies: Fever Eyes: denies: Loss of vision Nose: denies: Rhinorrhea / runny nose, Congestion Throat: denies: Sore throat Respiratory: reports: Dyspnea (chronic), Wheezing. denies: Cough GI: denies: Abdominal Pain, Vomiting, Diarrhea Skin: denies: Rash, Lesions Musculoskeletal: reports: Back pain. denies: Neck pain Neurologic: reports: Altered mental status (today). denies: Focal weakness, Numbness, Near syncope, Headache, Head injury Psychiatric: reports: Hallucinations (just today, seeming to be picking at things and talking about black shadows in his vision, like people in the room or walking by quickly.). denies: Depressed, Anxiety Immunocompromised: denies: Immunocompromised PD PAST MEDICAL HISTORY - Past Medical History Past Medical History: Yes Cardiovascular: Hypertension Respiratory: Asthma Neuro: None Endocrine/Autoimmune: None, Type 2 diabetes GI: GERD : None HEENT: None Psych: None Musculoskeletal: None Derm: None - Past Surgical History Past Surgical History: No General: Colonoscopy HEENT: Other - Present Medications Home Medications: Ambulatory Orders Medication Instructions Recorded Confirmed Acetaminophen [Tylenol] 650 mg PO Q4HR PRN 03/30/18 04/11/20 Albuterol Sulfate [Proair Hfa 1 - 2 puffs INH Q4H PRN 03/30/18 04/11/20 Inhaler] Beclomethasone 80 Mcg [Qvar 80] 2 puffs INH BID 03/30/18 04/11/20 Calcium Citrate 1,000 mg PO QPM 03/30/18 04/11/20 Cholecalciferol (Vitamin D3) 2,000 unit PO DAILY 03/30/18 04/11/20 [Vitamin D3] Fexofenadine HCl 90 mg PO DAILY 03/30/18 04/11/20 Omeprazole [PriLOSEC] 20 mg PO QDAC 03/30/18 04/11/20 Telmisartan [Micardis] 40 mg PO DAILY 03/30/18 04/11/20 predniSONE [Prednisone] 50 mg PO DAILY 02/15/19 04/11/20 Azithromycin [Zithromax] 250 mg PO MOWEFR 11/05/19 04/11/20 Melatonin 5 mg PO QPM 11/05/19 04/11/20 guaiFENesin [Guaifenesin] 800 mg PO BID 11/05/19 04/11/20 metFORMIN [Glucophage] 500 mg PO DAILYWM 11/05/19 04/11/20 oxyCODONE [Roxicodone] 5 mg PO Q6H PRN #25 tablet 03/03/20 04/11/20 Albuterol 2.5 mg INH Q4H PRN 04/11/20 04/11/20 Cyclobenzaprine [Flexeril] 10 mg PO Q12H PRN 04/11/20 04/11/20 Duloxetine HCl 60 mg PO DAILY 04/11/20 04/11/20 Ipratropium/Albuterol [Combivent 1 puffs INH Q6H PRN 04/11/20 04/11/20 Respimat] Ipratropium/Albuterol [Duoneb] 3 ml INH Q6H PRN 04/11/20 04/11/20 Lidocaine Patch 5% [Lidoderm Patch] 1 patch TOP DAILY PRN 04/11/20 04/11/20 Sulfamethox/Trimeth 800/160 1 tab PO BID 04/11/20 04/11/20 [Bactrim Ds] Umeclidinium [place] [Incruse 1 puffs INH DAILY 04/11/20 04/11/20 Ellipta] - Allergies Allergies/Adverse Reactions: Allergies Allergy/AdvReac Type Severity Reaction Status Date / Time aspirin Allergy Unknown Verified 04/11/20 11:47 ibuprofen AdvReac Respiratory Verified 04/11/20 11:47 pseudoephedrine AdvReac Unknown Verified 04/11/20 11:47 [From Entex T] - Living Situation Living Situation: reports: With spouse/s.o. Living Arrangement: reports: At home - Social History Does the pt smoke?: No Smoking Status: Never smoker Does the pt drink ETOH?: Yes Does the pt have substance abuse?: Yes Substance Use and Type: Marijuana - Family History Family history: reports: Non contributory - Immunizations Immunizations are current?: Yes - POLST Patient has POLST: No POLST Status: Full Code PD ED PE NORMAL - Vitals Vital signs reviewed: Yes - General General: Well developed/nourished, Other (He does seem agitated. He is able to answer questions initially and then will tangent onto other topics. He does seem to be fidgeting and picking or pointing towards objects on the floor and on the bed. He seems restless and does not want to sit down but keeps standing up and then sitting down and then standing up again without apparent direction or purpose. There is no tremoring nor fasciculations. He is directable.) - HEENT HEENT: Atraumatic, Pharynx benign. No: Moist mucous membranes - Neck Neck: Supple, no meningeal sign, No adenopathy - Cardiac Cardiac: No murmur, No rub. No: RRR (regular but tachycardic) - Respiratory Respiratory: No respiratory distress. No: Clear bilaterally (some exp wheezing but no coarse sounds. ) - Abdomen Abdomen: Normal bowel sounds, Soft, Non tender, Non distended - Back Back: No CVA TTP - Derm Derm: Normal color, Warm and dry - Extremities Extremities: No tenderness to palpate, Normal ROM s pain, No edema, No calf tenderness / cord - Neuro Neuro: associate director of development 2-12 intact, No motor deficit, No sensory deficit, Normal speech - Psych Psych: No: Normal affect (Agitated and apparently having some visual hallucinations. He does talk about some black shadow type images that go across his visual field at times in the periphery. He denies any persistent deficit. His speech and content are nonsensical at times or very tangential.) Results - Vitals Vitals: Vital Signs - 24 hr 04/11/20 04/11/20 11:47 14:18 Temperature 36.5 C 37.2 C Heart Rate 132 H 130 H Respiratory 16 22 Rate Blood Pressure 136/75 H 144/100 H O2 Saturation 98 96 Oxygen O2 Source Room air - Labs Labs: Laboratory Tests 04/11/20 04/11/20 04/11/20 12:55 12:55 12:55 WBC 5.6 RBC 4.10 L Hgb 11.4 L Hct 35.8 L MCV 87.3 MCH 27.8 MCHC 31.8 L RDW 15.1 H Plt Count 374 MPV 9.1 Neut # (Auto) 5.1 Lymph # (Auto) 0.2 L [place] # (Auto) 0.2 Eos # (Auto) 0.0 Baso # (Auto) 0.0 Absolute Nucleated RBC 0.00 Nucleated RBC % 0.0 Sodium 126 L Potassium 4.7 Chloride 89 L Carbon Dioxide 24 Anion Gap 13.0 BUN 24 H Creatinine 0.9 Estimated GFR (MDRD) 87 L Glucose 260 H Calcium 8.8 Total Bilirubin 0.7 AST 14 ALT 21 Alkaline Phosphatase 64 Total Protein 7.6 Albumin 3.8 Globulin 3.8 Albumin/Globulin Ratio 1.0 Lipase 103 H TSH 0.23 L Free T4 Free T3 pg/mL Urine Color Urine Clarity Urine pH Ur Specific [place] Urine Protein Urine Glucose (UA) Urine Ketones Urine Occult Blood Urine Nitrite Urine Bilirubin Urine Urobilinogen Ur Leukocyte Esterase Urine RBC Urine WBC Ur Epithelial Cells Ur Squamous Epith Cells Urine Bacteria Ur Microscopic Review Urine Culture Comments Salicylates < 6.0 Urine Opiates Screen Ur Oxycodone Screen Urine Methadone Screen Ur Propoxyphene Screen Acetaminophen < 10 L Ur Barbiturates Screen Ur Tricyclics Screen Ur Phencyclidine Scrn Ur Amphetamine Screen U Methamphetamines Scrn U Benzodiazepines Scrn Urine Cocaine Screen U Cannabinoids Screen Ethyl Alcohol < 5.0 04/11/20 04/11/20 12:55 13:05 WBC RBC Hgb Hct MCV MCH MCHC RDW Plt Count MPV Neut # (Auto) Lymph # (Auto) [place] # (Auto) Eos # (Auto) Baso # (Auto) Absolute Nucleated RBC Nucleated RBC % Sodium Potassium Chloride Carbon Dioxide Anion Gap BUN Creatinine Estimated GFR (MDRD) Glucose Calcium Total Bilirubin AST ALT Alkaline Phosphatase Total Protein Albumin Globulin Albumin/Globulin Ratio Lipase TSH Free T4 1.15 Free T3 pg/mL 3.94 H Urine Color YELLOW Urine Clarity CLEAR Urine pH 5.0 Ur Specific [place] 1.020 Urine Protein NEGATIVE Urine Glucose (UA) 500 H Urine Ketones NEGATIVE Urine Occult Blood SMALL H Urine Nitrite NEGATIVE Urine Bilirubin NEGATIVE Urine Urobilinogen 0.2 (NORMAL) Ur Leukocyte Esterase NEGATIVE Urine RBC 0-5 Urine WBC 0-3 Ur Epithelial Cells RARE Renal Tubular Ur Squamous Epith Cells RARE Squamous Urine Bacteria Rare Ur Microscopic Review INDICATED Urine Culture Comments NOT INDICATED Salicylates Urine Opiates Screen NEGATIVE Ur Oxycodone Screen NEGATIVE Urine Methadone Screen NEGATIVE Ur Propoxyphene Screen NEGATIVE Acetaminophen Ur Barbiturates Screen NEGATIVE Ur Tricyclics Screen POSITIVE H Ur Phencyclidine Scrn NEGATIVE Ur Amphetamine Screen NEGATIVE U Methamphetamines Scrn NEGATIVE U Benzodiazepines Scrn NEGATIVE Urine Cocaine Screen NEGATIVE U Cannabinoids Screen POSITIVE H Ethyl Alcohol PD MEDICAL DECISION MAKING - ED course Complexity details: reviewed results (He has a low sodium apparently acutely as well.), re-evaluated patient (He did not have improvement with Ativan and perhaps seemed a little bit more agitated or confused. This may have been an just the added effect of a benzodiazepine diazepam and on top of his delirium already. However I thought I would try a different medication. Benadryl IV was given with some mild improvement. This was only 12.5 mg. I therefore gave another 12.5 mg along with 1 mg of haloperidol. This combination actually seem to work quite well and you is more calmer and rested. His tachycardia has improved. His blood pressure is still good. He is not having any fever. He was given IV fluids. He seems to be having an acute side effects to the Flexeril and acute psychosis is listed as an adverse effect in [facility] drug reference. He also has hyponatremia apparently acutely. As such I am not anticipating improvement promptly and so I talked with the hospitalist regarding observation for further evaluation of the symptoms.), considered differential, d/w patient Departure - Departure Disposition: ED Place in Observation Clinical Impression: Acute hyponatremia Drug-induced psychotic disorder Qualifiers: Complication of substance-induced condition: with hallucinations Qualified Code(s): F19.951 - Other psychoactive substance use, unspecified with psychoactive substance-induced psychotic disorder with hallucinations Altered mental status Qualifiers: Altered mental status type: delirium Qualified Code(s): R41.0 - Disorientation, unspecified Condition: Stable Record reviewed to determine appropriate education?: Yes Discharge Date/Time: 04/11/20 15:50
[2020-04-11] MEDS ORDERED: SODIUM CHLORIDE 0.9% 1,000 ML IV STA (12:47)
[2020-04-11] MEDS ORDERED: LORazepam 2 MG/ML VIAL IVP STA (12:48)
[2020-04-11 13:07] LABS: BASOPHILS % (AUTO) 0.2 %; HGB - HEMOGLOBIN 11.4 g/dL (14.0-18.0); LYMPHOCYTES # (AUTO) 0.2 10^3/uL (1.5-3.5); LYMPHOCYTES % (AUTO) 4.1 %; MEAN CORPUSCULAR HEMOGLOBIN 27.8 pg (27.0-31.0); MEAN CORPUSCULAR HGB CONC 31.8 g/dL (32.0-36.0); MEAN CORPUSCULAR VOLUME 87.3 fL (80.0-94.0); MEAN PLATELET VOLUME 9.1 fL (7.4-11.4); MONOCYTES # (AUTO) 0.2 10^3/uL (0.0-1.0); MONOCYTES % (AUTO) 3.4 %; NEUTROPHILS # (AUTO) 5.1 10^3/uL (1.5-6.6); NEUTROPHILS % (AUTO) 91.6 %; PLT - PLATELET COUNT 374 10^3/uL (130-450); RED CELL DISTRIBUTION WIDTH 15.1 % (12.0-15.0); WHITE BLOOD COUNT 5.6 x10^3/uL (4.8-10.8)
[2020-04-11 13:24] LABS: MUDS CUTOFF CONCENTRATIONS CUTOFF CONC BELOW:
[2020-04-11 13:25] LABS: ACETAMINOPHEN < 10 ug/mL (10-30); ALBUMIN 3.8 g/dL (3.2-5.5); ALKALINE PHOSPHATASE 64 IU/L (42-121); ALT ALANINE AMINOTRANSFERASE 21 IU/L (10-60); AST ASPARTATE AMINOTRANSFERASE 14 IU/L (10-42); BILIRUBIN,TOTAL 0.7 mg/dL (0.2-1.0); BUN - BLOOD UREA NITROGEN 24 mg/dL (6-20); CALCIUM 8.8 mg/dL (8.5-10.3); CARBON DIOXIDE - CO2 24 mmol/L (21-32); CHLORIDE 89 mmol/L (101-111); CREATININE 0.9 mg/dL (0.6-1.2); GLUCOSE 260 mg/dL (70-100); LIPASE 103 U/L (22-51); SALICYLATE < 6.0 mg/dL; SODIUM 126 mmol/L (135-145); TOTAL PROTEIN 7.6 g/dL (6.7-8.2)
[2020-04-11 13:32] LABS: BILIRUBIN,URINE NEGATIVE (NEGATIVE); GLUCOSE, URINE (UA) 500 mg/dL (NEGATIVE); KETONES,URINE (UA) NEGATIVE (NEGATIVE); LEUKOCYTE ESTERASE, URINE NEGATIVE (NEGATIVE); NITRITE,URINE NEGATIVE (NEGATIVE); OCCULT BLOOD,URINE SMALL (NEGATIVE); PROTEIN,URINE NEGATIVE (NEGATIVE); UROBILINOGEN,URINE 0.2 (NORMAL) E.U./dL (NORMAL)
[2020-04-11 13:33] LABS: CLARITY,URINE CLEAR (CLEAR)
[2020-04-11 13:43] LABS: BACTERIA,URINE Rare /HPF (None Seen); RBC,URINE 0-5 /HPF (0-5); SQUAMOUS EPITHELIAL CELL,UR RARE Squamous (<= Few)
[2020-04-11 13:44] LABS: AMPHETAMINE SCREEN,URINE NEGATIVE (NEGATIVE); BENZODIAZEPINES SCREEN, URINE NEGATIVE (NEGATIVE); COCAINE SCREEN URINE NEGATIVE (NEGATIVE); METHADONE SCREEN, URINE NEGATIVE (NEGATIVE); METHAMPHETAMINES SCREEN, URINE NEGATIVE (NEGATIVE); OPIATE SCREEN, URINE NEGATIVE (NEGATIVE); OXYCODONE SCREEN, URINE NEGATIVE (NEGATIVE); PROPOXYPHENE SCREEN, URINE NEGATIVE (NEGATIVE); TRICYCLIC ANTIDEPRESSANT,URINE POSITIVE (NEGATIVE)
[2020-04-11] MEDS ORDERED: diphenhydrAMINE INJ 50 MG/ML VIAL IVP STA ×2 (13:53→15:09)
[2020-04-11 14:58] LABS: FREE T3 3.94 pg/mL (2.5-3.9)
[2020-04-11 14:59] LABS: FREE T4 (FREE THYROXINE) 1.15 ng/dL (0.58-1.64)
[2020-04-11] MEDS ORDERED: HALOPERIDOL 5 MG/ML VIAL IVP ONE ×4 (15:16→21:50)
[2020-04-11] MEDS ORDERED: HALOPERIDOL 5 MG/ML VIAL IVP PRN ×2 (17:11→19:58)
[2020-04-11] MEDS: SODIUM CHLORIDE 0.9% 1,000 ML IV SCH (17:15)
[2020-04-11] MEDS ORDERED: ALBUTEROL NEB 2.5 MG/3 ML INH PRN (17:58)
[2020-04-11] MEDS: METOPROLOL 5 MG/5 ML VIAL IVP SCH ×2 (18:32→23:55)
[2020-04-11] MEDS: LORazepam 2 MG/ML VIAL IVP PRN ×2 (20:47→23:52)
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
[2020-04-12] MEDS: LORazepam 2 MG/ML VIAL IVP PRN ×5 (02:31→20:54)
[2020-04-12 05:52] LABS: BASOPHILS % (AUTO) 0.1 %; EOSINOPHILS % (AUTO) 0.1 %; HGB - HEMOGLOBIN 10.6 g/dL (14.0-18.0); LYMPHOCYTES # (AUTO) 1.1 10^3/uL (1.5-3.5); LYMPHOCYTES % (AUTO) 12.7 %; MEAN CORPUSCULAR HEMOGLOBIN 28.8 pg (27.0-31.0); MEAN CORPUSCULAR HGB CONC 33.1 g/dL (32.0-36.0); MEAN PLATELET VOLUME 8.9 fL (7.4-11.4); MONOCYTES # (AUTO) 1.2 10^3/uL (0.0-1.0); NEUTROPHILS # (AUTO) 6.1 10^3/uL (1.5-6.6); NEUTROPHILS % (AUTO) 72.7 %; PLT - PLATELET COUNT 348 10^3/uL (130-450); RED BLOOD COUNT 3.68 10^6/uL (4.70-6.10); WHITE BLOOD COUNT 8.3 x10^3/uL (4.8-10.8)
[2020-04-12] MEDS: METOPROLOL 5 MG/5 ML VIAL IVP SCH ×4 (05:54→18:32)
[2020-04-12 06:04] LABS: CALCIUM 8.6 mg/dL (8.5-10.3); CREATININE 0.7 mg/dL (0.6-1.2)
--- NOTE | 2020-04-12 07:05 | PHARMACY PROGRESS NOTE ---
- Best Possible Medication History Admit Date and Time: 04/11/20 1441 Processed by: Pharmacy Medication History completed: Yes Patient Interview: Pt unable to participate Secondary Source(s): Spouse/Significant other, Physician records, Pharmacy re cords, Insurance records As the person ultimately responsible for medication therapy, providers are able to order a medication from an existing home medication list in [facility] via the "Reconcile Routine" prior to Confirmation of that medication by operator command support systems. Such practice is discouraged except when the physician, in their clinical judgment, deems that a medical need exists for a medication without regard to previous use.
[2020-04-12] MEDS: SODIUM CHLORIDE 0.9% 1,000 ML IV SCH (11:41)
--- NOTE | 2020-04-12 14:14 | PROVIDER PROGRESS NOTE ---
Assessment/Plan - Problem List (1) Drug-induced psychotic disorder Qualifiers: Complication of substance-induced condition: with hallucinations Qualified Code(s): F19.951 - Other psychoactive substance use, unspecified with psychoactive substance-induced psychotic disorder with hallucinations Assessment/Plan: I discussed his presentation, toxicology results and mental status with [place] [facility] today. The Poison farm technician told me that more likely Flexeril was causing agitation and confusion then his marijuana intake. She recommended an EKG because Flexeril can affect sodium channels and cause wide-complex tachycardia. Will order EKG. The peak Flexeril effect was at 24 to 30 hours she said. We are currently at about 36 to 40 hours out from his ingestion, and he should be starting to improve, per Poison Control. She will discuss with her superior for any other recommendations and call me back. (2) Cannabis use with intoxication delirium Assessment/Plan: The was able to determine that he took 4 tablets of edible THC which were each 100 mg candies. I discussed this with poison control as well. (3) Tachycardia Assessment/Plan: Altered factorial: Related to agitation, dehydration, (?NEW) hyperthyroidism. Continue with IV fluids. Continue with IV beta-ya treatment, the dose will be increased. (4) Hyperthyroidism Assessment/Plan: His TSH was negative or therefore the ER ordered a T4 and free T3 and the T3 shows that he is hyper thyroid. This may also be adding to the agitation. Heart rate has only decreased from 130s to 116. Will increase his IV beta-ya dose from 2.5 every 6 hours to 4 mg every 6 hours. He will need further management for this but not until adequately beta blocked (with heart rate close to 60) (5) Hypokalemia Assessment/Plan: Related to inadequate po intake or iv form Replace with K riders. Follow BMP daily. (6) Anemia Assessment/Plan: Will obtain serum B12, folate levels and iron stores and replace if low. He is on IV prophylaxis for PUD. (7) Sleep apnea Assessment/Plan: confirmed that he has this diagnosis and has a CPAP at home that he uses 50% of the time. We will order home CPAP use here. (8) History of asthma Assessment/Plan: There is no shortness of breath or desaturations here he is not wheezing or coughing. His inhalers were ordered PRN. (9) Hx of essential hypertension Assessment/Plan: He is unable to get p.o. blood pressure meds safely because of his agitation and confusion. IV hydralazine and IV beta-ya will be continued until he is more alert (10) Hx of diabetes mellitus Assessment/Plan: His medication list shows that he is on Metformin at home. Will order D5 in the IV to avoid hypoglycemia. We will order sliding scale insulin in a patient who is n.p.o. Will check A1c. (11) Hyponatremia Assessment/Plan: This was likely related to what the described as his recent GI viral syndrome. Resolved with IV saline. Continue with hydration (12) Prerenal azotemia Assessment/Plan: Resolved with IV saline. The today describe that he had a recent viral gastrointestinal illness (13) Elevated lipase Assessment/Plan: There were no GI symptoms. This was felt to be a phase reactant. Follow to assure that it is normalized - Current Meds Current Meds: Current Medications Generic Name Dose Route Start Last Admin Trade Name Freq PRN Reason Stop Dose Admin Sodium Chloride 1,000 mls @ 100 mls/hr 04/11/20 14:43 04/12/20 11:44 Normal Saline 0.9% IV 100 mls/hr .Q10H DARCIE Infusion Lorazepam 1 mg 04/12/20 02:11 04/12/20 08:03 Ativan Inj (Vial) IVP 1 mg Q2H PRN Administration Anxiety Metoprolol Tartrate 4 mg 04/12/20 12:49 04/12/20 13:45 Lopressor Inj IVP Not Given Q6H DARCIE - Lab Result Fish Bone Diagrams: 04/12/20 05:40 04/12/20 05:40 - Additional Planning My Orders: My Active Orders 04/11/20 14:43 Vital Signs [RC] Q2HR Sodium Chloride 0.9% [Normal Saline 0.9%] 1,000 ml IV 100 mls/hr 04/11/20 17:11 1:1 Observation [RC] once 04/11/20 17:38 Restraints Safety Check [RC] Q1H 04/11/20 17:55 Obtain RT Consult as needed [RC] .once 04/11/20 17:57 Nebulizer/MDI Tx. [RC] .PRN 04/11/20 17:58 Albuterol 2.5 mg INH RTQ4H PRN 04/11/20 Dinner Dysphagia Puree Diet [DIET] 04/12/20 12:49 Metoprolol Inj [Lopressor Inj] 4 mg IVP Q6H 04/12/20 12:50 Home CPAP/BiPAP [RC] .ONCE 04/13/20 05:00 CK- CREATINE KINASE [CHEM] DAILYLAB Subjective - Subjective Patient Reports: Other (When sleeping he has witnessed apnea.) Nursing Reports: Other (Still agitated, hands are fidgety, speaking to who he recognizes, with eyes closed. He still screams out, remains in 4-point restraints.) Objective Vital Signs: Vital Signs - 24 hr 04/11/20 04/11/20 04/11/20 14:18 16:23 18:24 Temperature 37.2 C 36.4 C L 36.3 C L Heart Rate 130 H Heart Rate [ Brachial] Heart Rate [ 129 H 127 H Monitoring electrodes] Respiratory 22 22 22 Rate Blood Pressure 144/100 H Blood Pressure [Left Brachial artery] Blood Pressure 159/92 H 162/73 H [Right Brachial artery] O2 Saturation 96 98 100 04/11/20 04/11/20 04/11/20 18:32 18:37 18:42 Temperature Heart Rate Heart Rate [ Brachial] Heart Rate [ 125 H 128 H Monitoring electrodes] Respiratory 20 20 Rate Blood Pressure 162/73 H Blood Pressure [Left Brachial artery] Blood Pressure 145/82 H 147/98 H [Right Brachial artery] O2 Saturation 100 100 04/11/20 04/11/20 04/11/20 18:47 19:00 19:15 Temperature Heart Rate Heart Rate [ Brachial] Heart Rate [ 127 H 123 H 125 H Monitoring electrodes] Respiratory 18 20 20 Rate Blood Pressure Blood Pressure [Left Brachial artery] Blood Pressure 155/93 H 157/97 H 147/77 H [Right Brachial artery] O2 Saturation 100 99 99 04/11/20 04/11/20 04/11/20 21:14 23:00 23:55 Temperature 36.6 C Heart Rate Heart Rate [ 124 H Brachial] Heart Rate [ 128 H Monitoring electrodes] Respiratory 24 20 Rate Blood Pressure 150/86 H Blood Pressure 165/83 H [Left Brachial artery] Blood Pressure 156/92 H [Right Brachial artery] O2 Saturation 98 98 04/12/20 04/12/20 04/12/20 00:00 01:00 05:44 Temperature 36.3 C L 36.5 C Heart Rate Heart Rate [ 124 H 123 H 131 H Brachial] Heart Rate [ Monitoring electrodes] Respiratory 18 20 22 Rate Blood Pressure Blood Pressure [Left Brachial artery] Blood Pressure 150/86 H 162/81 H 172/93 H [Right Brachial artery] O2 Saturation 93 92 04/12/20 04/12/20 04/12/20 05:54 06:54 07:30 Temperature 36.9 C Heart Rate 119 H Heart Rate [ 119 H Brachial] Heart Rate [ Monitoring electrodes] Respiratory 20 20 Rate Blood Pressure 172/93 H Blood Pressure [Left Brachial artery] Blood Pressure 133/97 H [Right Brachial artery] O2 Saturation 96 04/12/20 04/12/20 04/12/20 08:48 08:52 11:00 Temperature 36.3 C L 36.5 C Heart Rate Heart Rate [ 117 H Brachial] Heart Rate [ 113 H Monitoring electrodes] Respiratory 24 16 Rate Blood Pressure Blood Pressure [Left Brachial artery] Blood Pressure 141/84 H 148/97 H [Right Brachial artery] O2 Saturation 96 93 04/12/20 04/12/20 11:45 13:00 Temperature 36.4 C L Heart Rate Heart Rate [ 121 H Brachial] Heart Rate [ Monitoring electrodes] Respiratory 22 Rate Blood Pressure 148/97 H Blood Pressure [Left Brachial artery] Blood Pressure 153/89 H [Right Brachial artery] O2 Saturation 97 Oxygen O2 Source Room air I&O (Last 24 Hrs): Intake and Output Totals x24h 04/10/20 04/11/20 04/12/20 23:59 23:59 23:59 Intake Total 1250 1005 Output Total 2175 550 Balance -925 455 - Results Results: Laboratory Results WBC 8.3 x10^3/uL (4.8-10.8) 04/12/20 05:40 RBC 3.68 10^6/uL (4.70-6.10) L 04/12/20 05:40 Hgb 10.6 g/dL (14.0-18.0) L 04/12/20 05:40 Hct 32.0 % (42.0-52.0) L 04/12/20 05:40 MCV 87.0 fL (80.0-94.0) 04/12/20 05:40 MCH 28.8 pg (27.0-31.0) 04/12/20 05:40 MCHC 33.1 g/dL (32.0-36.0) 04/12/20 05:40 RDW 15.0 % (12.0-15.0) 04/12/20 05:40 Plt Count 348 10^3/uL (130-450) 04/12/20 05:40 MPV 8.9 fL (7.4-11.4) 04/12/20 05:40 Neut # (Auto) 6.1 10^3/uL (1.5-6.6) 04/12/20 05:40 Lymph # (Auto) 1.1 10^3/uL (1.5-3.5) L 04/12/20 05:40 Divide # (Auto) 1.2 10^3/uL (0.0-1.0) H 04/12/20 05:40 Eos # (Auto) 0.0 10^3/uL (0.0-0.7) 04/12/20 05:40 Baso # (Auto) 0.0 10^3/uL (0.0-0.1) 04/12/20 05:40 Absolute Nucleated RBC 0.00 x10^3/uL 04/12/20 05:40 Nucleated RBC % 0.0 /100WBC 04/12/20 05:40 Sodium 137 mmol/L (135-145) 04/12/20 05:40 Potassium 3.4 mmol/L (3.5-5.0) L 04/12/20 05:40 Chloride 101 mmol/L (101-111) 04/12/20 05:40 Carbon Dioxide 27 mmol/L (21-32) 04/12/20 05:40 Anion Gap 9.0 (6-13) 04/12/20 05:40 BUN 12 mg/dL (6-20) 04/12/20 05:40 Creatinine 0.7 mg/dL (0.6-1.2) 04/12/20 05:40 Estimated GFR (MDRD) 117 (>89) 04/12/20 05:40 Glucose 136 mg/dL (70-100) H 04/12/20 05:40 Calcium 8.6 mg/dL (8.5-10.3) 04/12/20 05:40 Total Bilirubin 0.7 mg/dL (0.2-1.0) 04/11/20 12:55 AST 14 IU/L (10-42) 04/11/20 12:55 ALT 21 IU/L (10-60) 04/11/20 12:55 Alkaline Phosphatase 64 IU/L (42-121) 04/11/20 12:55 Total Creatine Kinase 40 IU/L (22-269) 04/12/20 05:40 Total Protein 7.6 g/dL (6.7-8.2) 04/11/20 12:55 Albumin 3.8 g/dL (3.2-5.5) 04/11/20 12:55 Globulin 3.8 g/dL (2.1-4.2) 04/11/20 12:55 Albumin/Globulin Ratio 1.0 (1.0-2.2) 04/11/20 12:55 Lipase 103 U/L (22-51) H 04/11/20 12:55 TSH 0.23 uIU/mL (0.34-5.60) L 04/11/20 12:55 Free T4 1.15 ng/dL (0.58-1.64) 04/11/20 12:55 Free T3 pg/mL 3.94 pg/mL (2.5-3.9) H 04/11/20 12:55 Urine Color YELLOW 04/11/20 13:05 Urine Clarity CLEAR (CLEAR) 04/11/20 13:05 Urine pH 5.0 PH (5.0-7.5) 04/11/20 13:05 Ur Specific [place] 1.020 (1.002-1.030) 04/11/20 13:05 Urine Protein NEGATIVE mg/dL (NEGATIVE) 04/11/20 13:05 Urine Glucose (UA) 500 mg/dL (NEGATIVE) H 04/11/20 13:05 Urine Ketones NEGATIVE mg/dL (NEGATIVE) 04/11/20 13:05 Urine Occult Blood SMALL (NEGATIVE) H 04/11/20 13:05 Urine Nitrite NEGATIVE (NEGATIVE) 04/11/20 13:05 Urine Bilirubin NEGATIVE (NEGATIVE) 04/11/20 13:05 Urine Urobilinogen 0.2 (NORMAL) E.U./dL (NORMAL) 04/11/20 13:05 Ur Leukocyte Esterase NEGATIVE (NEGATIVE) 04/11/20 13:05 Urine RBC 0-5 /HPF (0-5) 04/11/20 13:05 Urine WBC 0-3 /HPF (0-3) 04/11/20 13:05 Ur Epithelial Cells FEW Transitional /HPF (<= Few) RARE Renal Tubular /HPF (<= Few) 04/11/20 13:05 Ur Epithelial Cells FEW Transitional /HPF (<= Few) RARE Renal Tubular /HPF (<= Few) 04/11/20 13:05 Ur Squamous Epith Cells RARE Squamous (<= Few) 04/11/20 13:05 Urine Bacteria Rare /HPF (None Seen) 04/11/20 13:05 Ur Microscopic Review INDICATED 04/11/20 13:05 Urine Culture Comments NOT INDICATED 04/11/20 13:05 Salicylates < 6.0 mg/dL 04/11/20 12:55 Urine Opiates Screen NEGATIVE (NEGATIVE) 04/11/20 13:05 Ur Oxycodone Screen NEGATIVE (NEGATIVE) 04/11/20 13:05 Urine Methadone Screen NEGATIVE (NEGATIVE) 04/11/20 13:05 Ur Propoxyphene Screen NEGATIVE (NEGATIVE) 04/11/20 13:05 Acetaminophen < 10 ug/mL (10-30) L 04/11/20 12:55 Ur Barbiturates Screen NEGATIVE (NEGATIVE) 04/11/20 13:05 Ur Tricyclics Screen POSITIVE (NEGATIVE) H 04/11/20 13:05 Ur Phencyclidine Scrn NEGATIVE (NEGATIVE) 04/11/20 13:05 Ur Amphetamine Screen NEGATIVE (NEGATIVE) 04/11/20 13:05 U Methamphetamines Scrn NEGATIVE (NEGATIVE) 04/11/20 13:05 U Benzodiazepines Scrn NEGATIVE (NEGATIVE) 04/11/20 13:05 Urine Cocaine Screen NEGATIVE (NEGATIVE) 04/11/20 13:05 U Cannabinoids Screen POSITIVE (NEGATIVE) H 04/11/20 13:05 Ethyl Alcohol < 5.0 mg/dL 04/11/20 12:55
[2020-04-12] MEDS ORDERED: NON FORMULARY MED (Albuterol Sulfate [Proair Hfa Inhaler] 2 PUFFS) INH PRN (14:21)
[2020-04-12] MEDS ORDERED: ALBUTEROL NEB 2.5 MG/3 ML INH PRN (14:21)
[2020-04-12] MEDS: D5NS W/20 MEQ KCL 1,000 ML IV SCH (14:42)
[2020-04-12] MEDS: INSULIN REGULAR HUMAN 300 UNIT/3 ML VIAL SUBQ SCH (17:51)
[2020-04-13] MEDS: INSULIN REGULAR HUMAN 300 UNIT/3 ML VIAL SUBQ SCH ×5 (00:12→23:37)
[2020-04-13] MEDS: D5NS W/20 MEQ KCL 1,000 ML IV SCH ×3 (00:13→21:05)
[2020-04-13] MEDS: METOPROLOL 5 MG/5 ML VIAL IVP SCH ×2 (00:15→06:17)
[2020-04-13] MEDS: LORazepam 2 MG/ML VIAL IVP PRN ×2 (02:26→13:54)
[2020-04-13 05:59] LABS: CK- CREATINE KINASE 30 IU/L (22-269); LIPASE 73 U/L (22-51)
[2020-04-13 06:04] LABS: HEMOGLOBIN A1C 0.75 g/dL; HEMOGLOBIN A1C % 7.9 % (4.6-6.2)
[2020-04-13] MEDS ORDERED: METOPROLOL 5 MG/5 ML VIAL IVP SCH (08:40)
[2020-04-13] MEDS ORDERED: METOPROLOL 5 MG/5 ML VIAL IVP PRN (08:43)
[2020-04-13] MEDS ORDERED: predniSONE 20 MG TABLET PO SCH (09:00)
[2020-04-13] MEDS: PROPRANOLOL 10 MG TABLET PO SCH ×2 (09:00→22:18)
[2020-04-13 09:01] LABS: BASOPHILS % (AUTO) 0.2 %; EOSINOPHILS # (AUTO) 0.1 10^3/uL (0.0-0.7); EOSINOPHILS % (AUTO) 0.6 %; HGB - HEMOGLOBIN 11.7 g/dL (14.0-18.0); LYMPHOCYTES % (AUTO) 11.2 %; MEAN CORPUSCULAR HEMOGLOBIN 28.6 pg (27.0-31.0); MEAN CORPUSCULAR HGB CONC 32.3 g/dL (32.0-36.0); MEAN CORPUSCULAR VOLUME 88.5 fL (80.0-94.0); MEAN PLATELET VOLUME 8.9 fL (7.4-11.4); MONOCYTES # (AUTO) 0.9 10^3/uL (0.0-1.0); MONOCYTES % (AUTO) 9.6 %; PLT - PLATELET COUNT 410 10^3/uL (130-450); RED BLOOD COUNT 4.09 10^6/uL (4.70-6.10); RED CELL DISTRIBUTION WIDTH 15.2 % (12.0-15.0)
[2020-04-13 09:03] LABS: CALCIUM 8.4 mg/dL (8.5-10.3); CREATININE 0.7 mg/dL (0.6-1.2)
--- NOTE | 2020-04-13 12:38 | CT Report ---
PROCEDURE: HEAD WO INDICATIONS: AMS TECHNIQUE: Noncontrast 4.5 mm thick angled axial sections acquired from the foramen magnum to the vertex. For r adiation dose reduction, the following was used: automated exposure control, adjustment of mA and/or kV according to patient size. COMPARISON: None. FINDINGS: Image quality: Excellent. CSF spaces: Basal cisterns are patent. No extra-axial fluid collections. Ventricles are normal in size and shape. Brain: No midline shift. No intracranial masses or hemorrhage. Rodriguez-white matter interface is norm al. Skull and face: Calvarium and visualized facial bones are intact, without suspicious lesions. Sinuses: Mastoid air cells are clear. There is complete opacification of the left maxillary sinus and left-sided ethmoid sinuses with narrowing of the left ostiomeatal unit secondary to mucosal thickeni ng. Osseous density noted in the posterior margin of the left maxillary sinus possibly representing a osteoma. IMPRESSION: 1. CT head without acute intracranial abnormalities. No mass or mass effect. 2. Left maxillary sinus and scattered ethmoid sinus disease with complete opacification of the left m axillary sinus. Reviewed by: Porter Sheehan MD on 04/13/2020 12:36 PM PDT Approved by: Porter Sheehan MD on 04/13/2020 12:36 PM PDT Station ID: [id number]
--- NOTE | 2020-04-13 13:07 | PROVIDER PROGRESS NOTE ---
Assessment/Plan - Problem List (1) Drug-induced psychotic disorder Qualifiers: Complication of substance-induced condition: with hallucinations Qualified Code(s): F19.951 - Other psychoactive substance use, unspecified with psychoactive substance-induced psychotic disorder with hallucinations Assessment/Plan: 04/13 pt is on sleep, pt's psychotic behaviour appear slightly improved. pt has a few bites for his breakfast. ordered CT of head shows unremarkable. pt still has mild tachycardia at HR 112. EKG done show sinus tachycardia without wide QTC. continue closely monitor, and staff support, will continue to discuss the care plan with [facility] poison control as needed (2) Cannabis use with intoxication delirium Assessment/Plan: 04/13 slight improved. pt's is at the bedside, discussed the care plan with his . advise pt's bring pt's CPAP to hospital for pt. (3) Tachycardia Assessment/Plan: 04/13 slightly improved. order propranolol and continue IV of metoprolol as needed, Continue intravenous IV fluids, continue vital signals monitor. (4) abnormal TSH Assessment/Plan: His TSH was slight less the normal but has normal free T4 and slight elevated free T3. advise pt followup with his PCP as out-pt to continue monitor. order propranolol, continue IV of metoprolol as needed, (5) Hypokalemia Assessment/Plan: Replace with K riders. Follow BMP daily. (6) chronic Anemia Assessment/Plan: 04/13 stable, Patient hemoglobin is 11.7, patient has a history of chronic anemia, (7) Sleep apnea Assessment/Plan: 04/13 Advised patient bring his home CPAP to the hospital for patient, confirmed that he has this diagnosis and has a CPAP at home that he uses 50% of the time. We will order home CPAP use here. (8) History of asthma Assessment/Plan: 04/13 Stable,There is no shortness of breath or desaturations here he is not wheezing or coughing. His inhalers were ordered PRN, Resume home medications. Patient's reported patient is in the process wean of prednisone, we will reduce prednisone dosage graduated (9) Hx of essential hypertension Assessment/Plan: 04/13 Will resume patient's home blood pressure medicine.pt is able to take PO today IV hydralazine and IV beta-ya will be continued until he is more alert (10) Hx of diabetes mellitus Assessment/Plan: Patient has A1c 7.9. His medication list shows that he is on Metformin at home. Continue D5 in the IV to avoid hypoglycemia. Patient only take a few bites today in breakfast and lunch Continue sliding scale (11) Hyponatremia Assessment/Plan: Resolved (12) Prerenal azotemia Assessment/Plan: Resolved with IV saline. (13) Elevated lipase Assessment/Plan: Resolved. There were no GI symptoms. - Current Meds Current Meds: Current Medications Generic Name Dose Route Start Last Admin Trade Name Freq PRN Reason Stop Dose Admin Potassium Chloride/Dextrose/Sod Cl 1,000 mls @ 100 mls/hr 04/12/20 15:00 04/13/20 10:15 IV 100 mls/hr .Q10H DARCIE Administration Insulin Human Regular 1 - 5 unit 04/12/20 18:00 04/13/20 11:58 Humulin R SUBQ 2 unit Q6HR DARCIE Administration Protocol Prednisone 50 mg 04/13/20 09:00 04/13/20 08:35 Deltasone PO 50 mg DAILY DARCIE Administration Propranolol HCl 20 mg 04/13/20 09:00 04/13/20 09:00 Inderal PO 20 mg BID DARCIE Administration - Lab Result [place] Diagrams: 04/13/20 08:49 04/13/20 08:49 - Additional Planning My Orders: My Active Orders 04/13/20 08:43 Metoprolol Inj [Lopressor Inj] 5 mg IVP Q6H PRN 04/13/20 09:00 Propranolol [Inderal] 20 mg PO BID 04/13/20 12:59 LORazepam INJ [Ativan Inj (Vial)] 1 mg IVP Q8H PRN 04/13/20 13:03 Ipratropium/Albuterol [Duoneb] 3 ml INH Q6H PRN 04/13/20 13:05 Nebulizer/MDI Tx. [RC] QID Resp Teach Nebulizer/MDI [RC] .ONCE 04/13/20 21:00 Beclomethasone 80 Mcg [Qvar 80] 2 puffs INH BID 04/14/20 05:00 BMP - BASIC METABOLIC PANEL [CHEM] DAILYLAB CBC - COMP BLD CT W/AUTO DIFF [HEME] DAILYLAB 04/14/20 09:00 Telmisartan [Micardis] 40 mg PO DAILY 04/15/20 05:00 BMP - BASIC METABOLIC PANEL [CHEM] DAILYLAB CBC - COMP BLD CT W/AUTO DIFF [HEME] DAILYLAB 04/16/20 05:00 BMP - BASIC METABOLIC PANEL [CHEM] DAILYLAB CBC - COMP BLD CT W/AUTO DIFF [HEME] DAILYLAB 04/17/20 05:00 BMP - BASIC METABOLIC PANEL [CHEM] DAILYLAB CBC - COMP BLD CT W/AUTO DIFF [HEME] DAILYLAB Subjective - Subjective Nursing Reports: Confused Objective Vital Signs: Vital Signs - 24 hr 04/12/20 04/12/20 04/12/20 14:54 14:59 15:45 Temperature 36.4 C L 36.6 C Heart Rate [ 120 H 135 H 124 H Brachial] Heart Rate [ 130 H Radial] Respiratory 22 22 Rate Blood Pressure Blood Pressure [Right Ankle] Blood Pressure 173/89 H 148/84 H 145/84 H [Right Brachial artery] O2 Saturation 100 97 04/12/20 04/12/20 04/12/20 17:00 18:32 18:37 Temperature 36.5 C Heart Rate [ 123 H 129 H Brachial] Heart Rate [ 130 H Radial] Respiratory 24 Rate Blood Pressure 164/99 H Blood Pressure [Right Ankle] Blood Pressure 155/92 H 164/99 H 161/107 H [Right Brachial artery] O2 Saturation 97 04/12/20 04/12/20 04/12/20 18:42 18:47 19:02 Temperature 36.5 C Heart Rate [ 113 H 115 H 118 H Brachial] Heart Rate [ Radial] Respiratory 24 Rate Blood Pressure Blood Pressure [Right Ankle] Blood Pressure 163/90 H 159/94 H 149/96 H [Right Brachial artery] O2 Saturation 97 04/12/20 04/12/20 04/12/20 19:17 19:32 19:46 Temperature Heart Rate [ 125 H 120 H 124 H Brachial] Heart Rate [ Radial] Respiratory 22 20 Rate Blood Pressure Blood Pressure [Right Ankle] Blood Pressure 177/99 H 169/92 H 157/100 H [Right Brachial artery] O2 Saturation 04/12/20 04/12/20 04/13/20 20:26 22:51 00:05 Temperature 97.8 C H 36.7 C Heart Rate [ 123 H 128 H 140 H Brachial] Heart Rate [ Radial] Respiratory 20 22 21 Rate Blood Pressure Blood Pressure [Right Ankle] Blood Pressure 167/94 H 148/86 H 151/100 H [Right Brachial artery] O2 Saturation 98 94 04/13/20 04/13/20 04/13/20 00:15 01:00 05:00 Temperature 37.7 C H Heart Rate [ 131 H 131 H Brachial] Heart Rate [ Radial] Respiratory 20 20 Rate Blood Pressure 150/100 H Blood Pressure 152/67 H [Right Ankle] Blood Pressure 162/88 H [Right Brachial artery] O2 Saturation 94 04/13/20 04/13/20 04/13/20 06:17 06:54 08:59 Temperature 37.2 C Heart Rate [ 124 H 127 H Brachial] Heart Rate [ Radial] Respiratory 18 Rate Blood Pressure 146/95 H Blood Pressure 140/58 H [Right Ankle] Blood Pressure 151/82 H [Right Brachial artery] O2 Saturation 95 04/13/20 10:18 Temperature Heart Rate [ 112 H Brachial] Heart Rate [ Radial] Respiratory Rate Blood Pressure Blood Pressure [Right Ankle] Blood Pressure 149/89 H [Right Brachial artery] O2 Saturation Oxygen O2 Source Room air I&O (Last 24 Hrs): Intake and Output Totals x24h 04/11/20 04/12/20 04/13/20 23:59 23:59 23:59 Intake Total 1250 1330 2151.667 Output Total 2175 900 500 Balance -340 913 3074.667 General: Alert, No acute distress HEENT: Atraumatic Neck: Supple Lymphatic: no adenopathy Neuro: Alert, Disoriented, Non Focal Cardiovascular: Normal S1, Normal S2 Respiratory: Chest non-tender, No respiratory distress Abdomen: Normal bowel sounds, Soft Extremities: Normal pulses - Results Results: Laboratory Results WBC 9.0 x10^3/uL (4.8-10.8) 04/13/20 08:49 RBC 4.09 10^6/uL (4.70-6.10) L 04/13/20 08:49 Hgb 11.7 g/dL (14.0-18.0) L 04/13/20 08:49 Hct 36.2 % (42.0-52.0) L 04/13/20 08:49 MCV 88.5 fL (80.0-94.0) 04/13/20 08:49 MCH 28.6 pg (27.0-31.0) 04/13/20 08:49 MCHC 32.3 g/dL (32.0-36.0) 04/13/20 08:49 RDW 15.2 % (12.0-15.0) H 04/13/20 08:49 Plt Count 410 10^3/uL (130-450) 04/13/20 08:49 MPV 8.9 fL (7.4-11.4) 04/13/20 08:49 Neut # (Auto) 7.0 10^3/uL (1.5-6.6) H 04/13/20 08:49 Lymph # (Auto) 1.0 10^3/uL (1.5-3.5) L 04/13/20 08:49 [place] # (Auto) 0.9 10^3/uL (0.0-1.0) 04/13/20 08:49 Eos # (Auto) 0.1 10^3/uL (0.0-0.7) 04/13/20 08:49 Baso # (Auto) 0.0 10^3/uL (0.0-0.1) 04/13/20 08:49 Absolute Nucleated RBC 0.00 x10^3/uL 04/13/20 08:49 Nucleated RBC % 0.0 /100WBC 04/13/20 08:49 Sodium 139 mmol/L (135-145) 04/13/20 08:49 Potassium 3.5 mmol/L (3.5-5.0) 04/13/20 08:49 Chloride 103 mmol/L (101-111) 04/13/20 08:49 Carbon Dioxide 26 mmol/L (21-32) 04/13/20 08:49 Anion Gap 10.0 (6-13) 04/13/20 08:49 BUN 7 mg/dL (6-20) 04/13/20 08:49 Creatinine 0.7 mg/dL (0.6-1.2) 04/13/20 08:49 Estimated GFR (MDRD) 117 (>89) 04/13/20 08:49 Glucose 144 mg/dL (70-100) H 04/13/20 08:49 POC Whole Bld Glucose 202 mg/dL (70 - 100) H 04/13/20 11:48 Glycated Hemoglobin 7.9 % (4.6-6.2) H 04/13/20 05:22 Estim Average Glucose 180 (70-100) H 04/13/20 05:22 Calcium 8.4 mg/dL (8.5-10.3) L 04/13/20 08:49 Total Bilirubin 0.7 mg/dL (0.2-1.0) 04/11/20 12:55 AST 14 IU/L (10-42) 04/11/20 12:55 ALT 21 IU/L (10-60) 04/11/20 12:55 Alkaline Phosphatase 64 IU/L (42-121) 04/11/20 12:55 Total Creatine Kinase 30 IU/L (22-269) 04/13/20 05:22 Total Protein 7.6 g/dL (6.7-8.2) 04/11/20 12:55 Albumin 3.8 g/dL (3.2-5.5) 04/11/20 12:55 Globulin 3.8 g/dL (2.1-4.2) 04/11/20 12:55 Albumin/Globulin Ratio 1.0 (1.0-2.2) 04/11/20 12:55 Lipase 65 U/L (22-51) H 04/13/20 08:49 TSH 0.23 uIU/mL (0.34-5.60) L 04/11/20 12:55 Free T4 1.15 ng/dL (0.58-1.64) 04/11/20 12:55 Free T3 pg/mL 3.94 pg/mL (2.5-3.9) H 04/11/20 12:55 Urine Color YELLOW 04/11/20 13:05 Urine Clarity CLEAR (CLEAR) 04/11/20 13:05 Urine pH 5.0 PH (5.0-7.5) 04/11/20 13:05 Ur Specific [place] 1.020 (1.002-1.030) 04/11/20 13:05 Urine Protein NEGATIVE mg/dL (NEGATIVE) 04/11/20 13:05 Urine Glucose (UA) 500 mg/dL (NEGATIVE) H 04/11/20 13:05 Urine Ketones NEGATIVE mg/dL (NEGATIVE) 04/11/20 13:05 Urine Occult Blood SMALL (NEGATIVE) H 04/11/20 13:05 Urine Nitrite NEGATIVE (NEGATIVE) 04/11/20 13:05 Urine Bilirubin NEGATIVE (NEGATIVE) 04/11/20 13:05 Urine Urobilinogen 0.2 (NORMAL) E.U./dL (NORMAL) 04/11/20 13:05 Ur Leukocyte Esterase NEGATIVE (NEGATIVE) 04/11/20 13:05 Urine RBC 0-5 /HPF (0-5) 04/11/20 13:05 Urine WBC 0-3 /HPF (0-3) 04/11/20 13:05 Ur Epithelial Cells FEW Transitional /HPF (<= Few) RARE Renal Tubular /HPF (<= Few) 04/11/20 13:05 Ur Epithelial Cells FEW Transitional /HPF (<= Few) RARE Renal Tubular /HPF (<= Few) 04/11/20 13:05 Ur Squamous Epith Cells RARE Squamous (<= Few) 04/11/20 13:05 Urine Bacteria Rare /HPF (None Seen) 04/11/20 13:05 Ur Microscopic Review INDICATED 04/11/20 13:05 Urine Culture Comments NOT INDICATED 04/11/20 13:05 Salicylates < 6.0 mg/dL 04/11/20 12:55 Urine Opiates Screen NEGATIVE (NEGATIVE) 04/11/20 13:05 Ur Oxycodone Screen NEGATIVE (NEGATIVE) 04/11/20 13:05 Urine Methadone Screen NEGATIVE (NEGATIVE) 04/11/20 13:05 Ur Propoxyphene Screen NEGATIVE (NEGATIVE) 04/11/20 13:05 Acetaminophen < 10 ug/mL (10-30) L 04/11/20 12:55 Ur Barbiturates Screen NEGATIVE (NEGATIVE) 04/11/20 13:05 Ur Tricyclics Screen POSITIVE (NEGATIVE) H 04/11/20 13:05 Ur Phencyclidine Scrn NEGATIVE (NEGATIVE) 04/11/20 13:05 Ur Amphetamine Screen NEGATIVE (NEGATIVE) 04/11/20 13:05 U Methamphetamines Scrn NEGATIVE (NEGATIVE) 04/11/20 13:05 U Benzodiazepines Scrn NEGATIVE (NEGATIVE) 04/11/20 13:05 Urine Cocaine Screen NEGATIVE (NEGATIVE) 04/11/20 13:05 U Cannabinoids Screen POSITIVE (NEGATIVE) H 04/11/20 13:05 Ethyl Alcohol < 5.0 mg/dL 04/11/20 12:55 Sepsis Event Note (H) - Evaluation Current Stage of Sepsis: Ruled out ABX Reporting Has patient been on IV antibiotics over the past 48 hours?: No Current Medications - Current Medications Current Medications: Active Medications Albuterol () 2.5 mg INH RTQ4H PRN PRN Reason: Wheezing Albuterol/Ipratropium (Duoneb) 3 ml INH Q6H PRN PRN Reason: Wheezing Budesonide (Pulmicort) 0.5 mg INH RTBID DARCIE Potassium Chloride/Dextrose/Sod Cl () 1,000 mls @ 100 mls/hr IV .Q10H DARCIE Last Admin: 04/13/20 10:15 Dose: 100 mls/hr Insulin Human Regular (Humulin R) 1 - 5 unit SUBQ Q6HR DARCIE; Protocol Last Admin: 04/13/20 11:58 Dose: 2 unit Lorazepam (Ativan Inj (Vial)) 1 mg IVP Q8H PRN PRN Reason: Anxiety Last Admin: 04/13/20 13:54 Dose: 1 mg Losartan Potassium (Cozaar) 50 mg PO DAILY [facility] Metoprolol Tartrate (Lopressor Inj) 5 mg IVP Q6H PRN PRN Reason: Tachycardia Prednisone (Deltasone) 40 mg PO DAILY [facility] Propranolol HCl (Inderal) 20 mg PO BID [facility] Last Admin: 04/13/20 09:00 Dose: 20 mg Acetaminophen [Tylenol] 650 mg PO Q4HR PRN 03/30/18 Albuterol Sulfate [Proair Hfa Inhaler] 1 - 2 puffs INH Q4H PRN 03/30/18 Beclomethasone 80 Mcg [Qvar 80] 2 puffs INH BID 03/30/18 Calcium Citrate 1,000 mg PO QPM 03/30/18 Cholecalciferol (Vitamin D3) [Vitamin D3] 2,000 unit PO DAILY 03/30/18 Fexofenadine HCl 90 mg PO DAILY 03/30/18 Omeprazole [PriLOSEC] 20 mg PO QDAC 03/30/18 Telmisartan [Micardis] 40 mg PO DAILY 03/30/18 predniSONE [Prednisone] 50 mg PO DAILY 02/15/19 Azithromycin [Zithromax] 250 mg PO MOWEFR 11/05/19 Melatonin 5 mg PO QPM 11/05/19 guaiFENesin [Guaifenesin] 800 mg PO BID 11/05/19 metFORMIN [Glucophage] 500 mg PO DAILYWM 11/05/19 Albuterol 2.5 mg INH Q4H PRN 04/11/20 Cyclobenzaprine [Flexeril] 10 mg PO Q12H PRN 04/11/20 Duloxetine HCl 60 mg PO DAILY 04/11/20 Ipratropium/Albuterol [Combivent Respimat] 1 puffs INH Q6H PRN 04/11/20 Ipratropium/Albuterol [Duoneb] 3 ml INH Q6H PRN 04/11/20 Lidocaine Patch 5% [Lidoderm Patch] 1 patch TOP DAILY PRN 04/11/20 Sulfamethox/Trimeth 800/160 [Bactrim Ds] 1 tab PO BID 04/11/20 Umeclidinium [place] [Incruse Ellipta] 1 puffs INH DAILY 04/11/20
[2020-04-13] MEDS: BUDESONIDE 0.5 MG/2 ML NEB INH SCH (21:11)
[2020-04-13] MEDS: IPRATROPIUM/ALBUTEROL 3 ML NEB INH PRN (21:11)
[2020-04-14] MEDS: LORazepam 2 MG/ML VIAL IVP PRN (00:18)
[2020-04-14] MEDS: INSULIN REGULAR HUMAN 300 UNIT/3 ML VIAL SUBQ SCH ×2 (05:43→11:52)
[2020-04-14 05:56] LABS: BASOPHILS % (AUTO) 0.2 %; EOSINOPHILS % (AUTO) 0.4 %; HGB - HEMOGLOBIN 11.5 g/dL (14.0-18.0); LYMPHOCYTES # (AUTO) 1.1 10^3/uL (1.5-3.5); LYMPHOCYTES % (AUTO) 10.3 %; MEAN CORPUSCULAR HEMOGLOBIN 28.3 pg (27.0-31.0); MEAN CORPUSCULAR HGB CONC 31.8 g/dL (32.0-36.0); MEAN CORPUSCULAR VOLUME 88.9 fL (80.0-94.0); MEAN PLATELET VOLUME 9.2 fL (7.4-11.4); MONOCYTES # (AUTO) 0.8 10^3/uL (0.0-1.0); MONOCYTES % (AUTO) 7.9 %; NEUTROPHILS # (AUTO) 8.3 10^3/uL (1.5-6.6); NEUTROPHILS % (AUTO) 80.6 %; PLT - PLATELET COUNT 433 10^3/uL (130-450); RED BLOOD COUNT 4.07 10^6/uL (4.70-6.10); RED CELL DISTRIBUTION WIDTH 14.8 % (12.0-15.0); WHITE BLOOD COUNT 10.3 x10^3/uL (4.8-10.8)
[2020-04-14 06:05] LABS: CALCIUM 8.6 mg/dL (8.5-10.3); CREATININE 0.7 mg/dL (0.6-1.2)
[2020-04-14] MEDS: D5NS W/20 MEQ KCL 1,000 ML IV SCH (06:20)
[2020-04-14] MEDS: IPRATROPIUM/ALBUTEROL 3 ML NEB INH PRN (07:40)
[2020-04-14] MEDS: BUDESONIDE 0.5 MG/2 ML NEB INH SCH (07:40)
[2020-04-14] MEDS: PROPRANOLOL 10 MG TABLET PO SCH (08:36)
[2020-04-14] MEDS ORDERED: LOSARTAN 50 MG TABLET PO SCH (09:00)
[2020-04-14] MEDS ORDERED: predniSONE 20 MG TABLET PO SCH (09:00)
[2020-04-14 11:05] VITALS: BP 156/90
--- NOTE | 2020-04-14 14:03 | Discharge Plan ---
Discharge Plan Problem Reviewed?: Yes Disposition: Home, Self Care Condition: Stable Diet: Regular Activity Restrictions: Activity as Tolerated Shower Restrictions: No Driving Restrictions: Yes (May not drive a car because of your sleepiness, until cleared to do so by y) Health Concerns: You were admitted after excessive intake of Flexeril plus edible marijuana. Th is created hallucinations and delirium for 3 days. Do not use edible marijuana or any Flexeril now until reordered by your doctor. Also, decrease your use of any medicines that give you sedation, oxycodone, melatonin, etc. You may not drive a vehicle until cleared do so by your PCP. See your PCP in hospital follow-up in the next several days. Plan of Treatment: As above. Care Goals: Improvement in symptoms and stabilization are the goals. Assessment: The understands and is agreeable with the plan. No Smoking: If you smoke, Please STOP! Call for help. Follow-up with: Delvin Zhao MD [Primary Care Provider] -
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
== END 2020-04-14 14:34 | disposition home or self-care (01) | DRG 918 ==
LOC: ED 11:41 → MS2 14:41 → OBSVTOIN 04-12 14:30
PROVIDERS: ADMIT Internal Medicine; ATTEND Internal Medicine
DX: T48.1X1A Poisoning by skeletal muscle relaxants [neuromuscular blocking agents], accidental (unintentional), initial encounter (principal); E87.1 Hypo-osmolality and hyponatremia; R44.3 Hallucinations, unspecified; F12.921 Cannabis use, unspecified with intoxication delirium; F19.951 Other psychoactive substance use, unspecified with psychoactive substance-induced psychotic disorder with hallucinations; T40.7X1A Poisoning by cannabis (derivatives), accidental (unintentional), initial encounter; R00.0 Tachycardia, unspecified; E05.90 Thyrotoxicosis, unspecified without thyrotoxic crisis or storm; E87.6 Hypokalemia; D64.9 Anemia, unspecified; G47.30 Sleep apnea, unspecified; I10 Essential (primary) hypertension; E11.9 Type 2 diabetes mellitus without complications; Z79.84 Long term (current) use of oral hypoglycemic drugs; R79.89 Other specified abnormal findings of blood chemistry; R74.8 Abnormal levels of other serum enzymes; J45.909 Unspecified asthma, uncomplicated; M54.9 Dorsalgia, unspecified; M25.559 Pain in unspecified hip; Z78.1 Physical restraint status; Z79.51 Long term (current) use of inhaled steroids; Y92.000 Kitchen of unspecified non-institutional (private) residence as the place of occurrence of the external cause; F09 Unspecified mental disorder due to known physiological condition; M54.5 Low back pain; Z79.52 Long term (current) use of systemic steroids
CPT/HCPCS: 36415; 70450; 80048; 80053; 80306; 80307; 80320; 80329; 81001; 82550; 83036; 83690; 84439; 84443; 84481; 85025; 93005; 94640; 96361; 96374; 96375; 96376; 99284; 99285; A9270; G0378; J1200; J1815; J2060; J7512; J7626; 81003; 87086

== ENCOUNTER 2020-04-18 12:35 | Inpatient (IN) | payer OTHER ==
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
[2020-04-18] MEDS ORDERED: LORazepam 2 MG/ML VIAL IVP STA ×2 (13:19→16:58)
[2020-04-18 13:21] LABS: BASOPHILS % (AUTO) 0.3 %; EOSINOPHILS % (AUTO) 0.3 %; HGB - HEMOGLOBIN 11.1 g/dL (14.0-18.0); LYMPHOCYTES # (AUTO) 0.6 10^3/uL (1.5-3.5); LYMPHOCYTES % (AUTO) 4.8 %; MEAN CORPUSCULAR HEMOGLOBIN 28.2 pg (27.0-31.0); MEAN CORPUSCULAR HGB CONC 31.4 g/dL (32.0-36.0); MEAN CORPUSCULAR VOLUME 89.8 fL (80.0-94.0); MEAN PLATELET VOLUME 8.6 fL (7.4-11.4); MONOCYTES # (AUTO) 0.8 10^3/uL (0.0-1.0); MONOCYTES % (AUTO) 6.8 %; NEUTROPHILS # (AUTO) 10.2 10^3/uL (1.5-6.6); NEUTROPHILS % (AUTO) 86.6 %; PLT - PLATELET COUNT 481 10^3/uL (130-450); RED BLOOD COUNT 3.94 10^6/uL (4.70-6.10); RED CELL DISTRIBUTION WIDTH 15.3 % (12.0-15.0); WHITE BLOOD COUNT 11.8 x10^3/uL (4.8-10.8)
--- NOTE | 2020-04-18 13:30 | XRAY Report ---
PROCEDURE: Chest 1 View X-Ray INDICATIONS: dyspnea TECHNIQUE: One view of the chest was acquired. COMPARISON: Chest x-ray, 11/04/2019. Chest CT, 11/03/2019. FINDINGS: Surgical changes and devices: None. Lungs and pleura: Patchy groundglass infiltrates bilaterally. No pleural effusions or pneumothorax. Mediastinum: Mediastinal contours appear normal. Heart size is normal. Bones and chest wall: No suspicious bony lesions. Overlying soft tissues appear unremarkable. Righ t fifth rib fracture is less conspicuous. IMPRESSION: Patchy groundglass infiltrates bilaterally suggesting mild pneumonia. Reviewed by: Maura Watson MD on 04/18/2020 1:29 PM PDT Approved by: Maura Watson MD on 04/18/2020 1:29 PM PDT Station ID: [id number]
[2020-04-18 13:34] LABS: ACETAMINOPHEN < 10 ug/mL (10-30); ALBUMIN 3.8 g/dL (3.2-5.5); ALBUMIN/GLOBULIN RATIO 1.1 (1.0-2.2); ALKALINE PHOSPHATASE 74 IU/L (42-121); ALT ALANINE AMINOTRANSFERASE 22 IU/L (10-60); AST ASPARTATE AMINOTRANSFERASE 13 IU/L (10-42); BILIRUBIN,TOTAL 0.8 mg/dL (0.2-1.0); BUN - BLOOD UREA NITROGEN 14 mg/dL (6-20); CALCIUM 9.9 mg/dL (8.5-10.3); CARBON DIOXIDE - CO2 24 mmol/L (21-32); CHLORIDE 93 mmol/L (101-111); GLUCOSE 212 mg/dL (70-100); LIPASE 62 U/L (22-51); SALICYLATE < 6.0 mg/dL; SODIUM 136 mmol/L (135-145); TOTAL PROTEIN 7.2 g/dL (6.7-8.2)
[2020-04-18] MEDS ORDERED: AZITHROMYCIN INJ 500 MG in SODIUM CHLORIDE 0.9% 250 ML IV STA (13:35)
[2020-04-18] MEDS ORDERED: cefTRIAXone 2 GM in SODIUM CHLORIDE 0.9% MINIBAG 100 ML IV STA (13:35)
[2020-04-18] MEDS ORDERED: levoFLOXacin 750 MG/150 ML 750 MG/150 ML BAG IV STA (14:07)
[2020-04-18] MEDS ORDERED: SODIUM CHLORIDE FLUSH 0.9% 10 ML SYRINGE IVP PRN (14:08)
[2020-04-18] MEDS ORDERED: ONDANSETRON 4 MG/2 ML VIAL IVP PRN (14:08)
--- NOTE | 2020-04-18 14:19 | HISTORY & PHYSICAL EXAMINATION ---
Chief Complaint - Chief Complaint Chief Complaint: Back pain History of Present Illness - Admitted From Admitted From:: Home - History Obtained From Records Reviewed: Yes History obtained from: Patient, Spouse, ER Physician, EMR Exam Limitations: Patient is confused. - History of Present Illness HPI Comment/Other: This is a 34-year-old male with a past medical history significant for severe persistent asthma on chronic prednisone, diabetes secondary to chronic steroid use, chronic lower back pain who presents today complaining of back pain. The patient had just been discharged a few days ago from the hospital after he was admitted for acute encephalopathy which was attributed to the use of Flexeril. The patient had taken 40 mg of Flexeril and had become altered and quite agitated. He improved over a couple days while hospitalized and was discharged home. His states that since he has been home he did well the first 2 days. She noted that on Sunday he became quite confused and more agitated. He was also quite restless and fidgety. She reports he did not sleep at all last night and he has been out and about walking. The patient presents today complaining of lower back pain. He reports he had an MRI of his lumbar and cervical spines last week. This is confirmed by his spouse. He is requesting pain medication. He has not been on oxycodone for over 2 weeks. His spouse states that she has b een controlling his Flexeril and has been only getting 1 tablet twice a day as initially prescribed. He did receive Flexeril this morning. He is also on Cymbalta for depression/anxiety. He reports no chest pain, dyspnea. He reports an occasional nonproductive cough. He denies any fevers, chills, sore throat, recent sick contacts. He does note lower extremity edema which his attributes to him being on his feet for over the past 24 hours. He denies any dysuria, urgency, frequency. He has no prior history of heart failure. His spouse notes that he did have some diarrhea a few weeks ago which was attributed to opiate withdrawal. She believes he may have had a few liquid bowel movements over the past few days. She has noted he is quite tremulous over the past couple of days as well. His spouse reports that he does not drink any alcohol and he has no history of alcohol abuse. In the emergency department, he was afebrile temperature of 37.2 C. He was tachycardic with a heart rate of 125. He was also hypertensive the blood pressure of 161/97. He was tachypneic in the low 20s. He is initially saturating well on room air at 100% although he did desat on falling asleep to the mid 80s. Labs are significant for white count 11.8 with a left shift. His anion gap was elevated at 19. Urine toxicology is positive for cannabis. His alcohol level is negative. Chest x-ray was concerning for bilateral pneumonia. A CT of the head was not obtained as he had one just a few days ago which was unremarkable. Given the findings above, medicine was consulted for admission. Discuss goals of care with the patient and his spouse and he will be a full code. History - Past Medical History Cardiovascular: reports: Hypertension Respiratory: reports: Asthma, Sleep apnea, CPAP use Neuro: reports: None Endocrine/Autoimmune: reports: Type 2 diabetes GI: reports: GERD : reports: Kidney stones HEENT: reports: None Psych: reports: None Musculoskeletal: reports: Chronic back pain Derm: reports: None MRSA Hx?: No - Past Surgical History General: reports: Colonoscopy HEENT: reports: Other - Family & Social History Family History: Mother: Alive and Well, Asthma Family History Comment/Other: Reports his mother also has asthma. His son has irritable bowel syndrome. Living arrangement: At home Living Situation: With spouse/s.o. Social History Notes: Patient lives at home with his , Olga. They have been for just over a year. 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 He denies any smoking and reports rare alcohol use. He does use edible cannabis every day. - Substance History Use: Uses substance without health or social issues: Alcohol, Cannabis (Edibles) - POLST Patient has POLST: No POLST Status: Full Code Meds/Allgy - Home Medications Home Medications: Ambulatory Orders Medication Instructions Recorded Confirmed Acetaminophen [Tylenol] 650 mg PO Q4HR PRN 03/30/18 04/18/20 Albuterol Sulfate [Proair Hfa 1 - 2 puffs INH Q4H PRN 03/30/18 04/18/20 Inhaler] Beclomethasone 80 Mcg [Qvar 80] 2 puffs INH BID 03/30/18 04/18/20 Calcium Citrate 1,000 mg PO QPM 0604/18/20 Cholecalciferol (Vitamin D3) 2,000 unit PO DAILY 03/30/18 04/18/20 [Vitamin D3] Fexofenadine HCl 90 mg PO DAILY 03/30/18 04/18/20 Omeprazole [PriLOSEC] 20 mg PO QDAC 03/30/18 04/18/20 Telmisartan [Micardis] 40 mg PO DAILY 03/30/18 04/18/20 predniSONE [Prednisone] 50 mg PO DAILY 02/15/19 04/18/20 Azithromycin [Zithromax] 250 mg PO MOWEFR 11/05/19 04/18/20 guaiFENesin [Guaifenesin] 800 mg PO BID 11/05/19 04/18/20 metFORMIN [Glucophage] 500 mg PO DAILYWM 11/05/19 04/18/20 Albuterol 2.5 mg INH Q4H PRN 04/11/20 04/18/20 Duloxetine HCl 60 mg PO DAILY 04/11/20 04/18/20 Ipratropium/Albuterol [Combivent 1 puffs INH Q6H PRN 04/11/20 04/18/20 Respimat] Ipratropium/Albuterol [Duoneb] 3 ml INH Q6H PRN 04/11/20 04/18/20 Lidocaine Patch 5% [Lidoderm Patch] 1 patch TOP DAILY PRN 04/11/20 04/18/20 Umeclidinium [place] [Incruse 1 puffs INH DAILY 04/11/20 04/18/20 Ellipta] - Allergies Allergies/Adverse Reactions: Allergies Allergy/AdvReac Type Severity Reaction Status Date / Time aspirin Allergy Unknown Verified 04/18/20 12:45 ibuprofen AdvReac Respiratory Verified 04/18/20 12:45 pseudoephedrine AdvReac Unknown Verified 04/18/20 12:45 [From Entex T] Review of Systems - Constitutional Constitutional: denies: Fatigue, Fever, Chills - Eyes Eyes: reports: Blurred vision - Ears, Nose & Throat Ears, Nose & Throat: denies: Nasal discharge, Nasal congestion, Sore throat - Cardiovascular Cariovascular: reports: Edema. denies: Irregular heart rate, Chest pain, Exertional dyspnea, Decr. exercise tolerance - Respiratory Respiratory: reports: Cough. denies: Sputum production, SOB at rest, SOB with exertion - Gastrointestinal Gastrointestinal: reports: Diarrhea. denies: Abdominal pain, Constipation, Nausea, Vomiting - Genitourinary Genitourinary: denies: Dysuria, Frequency, Urgency, Hematuria - Musculoskeletal Musculoskeletal: reports: Back pain. denies: Muscle pain, Limited range of motion, Muscle weakness - Neurological Neurological: denies: General weakness, Focal weakness, Headache - Psychiatric Psychiatric: reports: Hallucinations. denies: Depression, Anxiety - Hematologic/Lymphatic Hematologic/Lymphatic: reports: Bruising - All Other Systems All Other Systems: reports: Reviewed and negative Prior Level of Functionality: He is independent with his ADLs. Exam - Vital Signs Reviewed Vital Signs: Yes Vital Signs: Vital Signs x48h Temp Pulse Resp BP Pulse Ox 04/18/20 14:00 130 H 18 156/92 H 100 04/18/20 12:51 124 H 26 H 162/93 H 100 04/18/20 12:45 37.2 C 125 H 20 161/97 H 100 - Physical Exam General Appearance: positive: Alert, Mild distress Eyes Bilateral: positive: Normal inspection, PERRL, Conjunctivae nml ENT: positive: ENT inspection nml, Other (Nasal cannula in place) Neck: positive: Nml inspection Respiratory: positive: No respiratory distress. negative: Wheezes, Rales Cardiovascular: positive: No murmur, Tachycardia. negative: Irregularly irregular, Bradycardia, Systolic murmur, Diastolic murmur Abdomen: positive: Non-tender, No distention. negative: Tenderness, Guarding, Rebound Skin: positive: Warm, Dry Extremities: positive: Pedal edema (+1 pitting edema in bilateral lower extremities.) Neurologic/Psychiatric: positive: Other (He is quite tremulous in all 4 extremities. There is 1-2 beats of clonus in the lower extremities. He is oriented to self and location. He also knows the year and month but not the day. No focal deficits on exam. His speech is tangential and pressured.). negative: Disoriented to person, Disoriented to place Conclusion/Plan - Problem List (1) Encephalopathy Conclusion/Plan: Etiologies not clear at this time but differential includes serotonin syndrome versus drug reaction. Although he is alert and oriented, he is quite tremulous, restless with poor short-term memory although long-term memory is intact. He has no focal deficits on exam. CT the head from few days ago was unremarkable I do not feel it is worth repeating as he has no focal deficits on exam. Urine toxicology is negative except for cannabis. He has no prior history of alcohol use so doubt alcoholism or Warnicke's Korsakoff at this time. This could be related to his pneumonia although he does not appear septic so would not suspect such an infection to cause his encephalopathy. At this time, we will give him a dose of lorazepam IV for possible serotonin syndrome. We will hold his home Cym betty and Flexeril. Will consider MRI tomorrow if there is no improvement. Continue with neurochecks. Check ammonia, TSH, CKs. (2) Community acquired pneumonia Conclusion/Plan: Chest x-ray was concerning for bilateral infiltrates. He is not hypoxic at rest but he did desaturate when sleeping which I suspect is likely related to his sleep apnea and not due to the pneumonia. He does have a mild white count with a left shift and is tachycardic but family reports this is chronic for him which may be due to his albuterol use given his asthma. He also has no fever. Given he is on azithromycin at home for his asthma, we will place him on Levaquin IV d uring his hospitalization. We will continue supplemental oxygen for goal saturation greater than 92%. (3) Severe persistent asthma Conclusion/Plan: Is on chronic prednisone therapy for this and is on appropriate inhaler therapy. 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 This does not appear to be in exacerbation at this time. We will continue his home inhalers and current dose of prednisone. (4) Steroid-induced diabetes mellitus Conclusion/Plan: His last A1c was elevated at 7.9%. He is only on metformin at home. We will place him on Lantus 10 units in the evening and sliding scale during his hospitalization. Carb controlled diet. We will have elementary educator see him during this visit. Qualifiers: Encounter type: initial encounter Qualified Code(s): E09.9 - Drug or chemical induced diabetes mellitus without complications; T38.0X5A - Adverse eff ect of glucocorticoids and synthetic analogues, initial encounter (5) Chronic back pain Conclusion/Plan: This is chronic for him and he had an outpatient MRI which not available to me. We will attempt to obtain those records. We will hold off on administering opiates given his encephalopathy. Qualifiers: Back pain location: low back pain Back pain laterality: right Sciatica presence: with sciatica Sciatica laterality: sciatica of right side Qualified Code(s): M54.41 - Lumbago with sciatica, right side; G89.29 - Other chronic pain (6) Hypertension Conclusion/Plan: He is currently hypertensive with systolic in the 150s. We will resume his home antihypertensives. Will adjust as need be given his clinical course. Qualifiers: Hypertension type: essential hypertension Qualified Code(s): I10 - Essential (primary) hypertension (7) Sleep apnea Conclusion/Plan: Reports being somewhat compliant with CPAP. He may require submental oxygen while he is asleep during his hospitalization. I discussed with him the importance of CPAP therapy. - Lab Results Lab results reviewed: Yes Cecil Bones: 04/18/20 13:10 04/18/20 13:10 - Diagnostic Imaging Results Diagnostic Imaging Results: positive: Final report reviewed - EKG Results EKG Interpreted Independently: Yes EKG Comparison: Unchanged from prior EKG EKG Findings: Sinus tachycardia without any ST segment changes. Core Measures - Anticipated LOS I expect patient to be DC'd or transferred within 96 hours.: Yes - Issues Hospital Issues and Management Plan: 54-year-old male with severe persistent asthma who presents complaining of back pain found to have bilateral pneumonia as well as altered mental status. Will a dmit for IV antibiotics and further work-up of his altered mental status. Suspect possible serotonin syndrome and so we will trial Ativan. - DVT/VTE - Prophylaxis VTE/DVT Device ordered at admit?: Yes VTE/DVT Prophylaxis med ordered at admit?: Yes
--- NOTE | 2020-04-18 14:39 | PHARMACY PROGRESS NOTE ---
- Best Possible Medication History Admit Date and Time: 04/18/20 1408 Processed by: Nursing Medication History completed: Yes As the person ultimately responsible for medication therapy, providers are able to order a medication from an existing home medication list in [facility] via the "Reconcile Routine" prior to Confirmation of that medication by presidential support specialist. Such practice is discouraged except when the physician, in their clinical judgment, deems that a medical need exists for a medication without regard to previous use.
[2020-04-18 15:52] LABS: MUDS CUTOFF CONCENTRATIONS CUTOFF CONC BELOW:
[2020-04-18 16:04] LABS: AMPHETAMINE SCREEN,URINE NEGATIVE (NEGATIVE); BENZODIAZEPINES SCREEN, URINE NEGATIVE (NEGATIVE); COCAINE SCREEN URINE NEGATIVE (NEGATIVE); METHADONE SCREEN, URINE NEGATIVE (NEGATIVE); METHAMPHETAMINES SCREEN, URINE NEGATIVE (NEGATIVE); OPIATE SCREEN, URINE NEGATIVE (NEGATIVE); OXYCODONE SCREEN, URINE NEGATIVE (NEGATIVE); PROPOXYPHENE SCREEN, URINE NEGATIVE (NEGATIVE); TRICYCLIC ANTIDEPRESSANT,URINE NEGATIVE (NEGATIVE)
[2020-04-18 16:30] LABS: BILIRUBIN,URINE NEGATIVE (NEGATIVE); GLUCOSE, URINE (UA) NEGATIVE (NEGATIVE); KETONES,URINE (UA) NEGATIVE (NEGATIVE); LEUKOCYTE ESTERASE, URINE NEGATIVE (NEGATIVE); NITRITE,URINE NEGATIVE (NEGATIVE); OCCULT BLOOD,URINE TRACE-INTA (NEGATIVE); PROTEIN,URINE NEGATIVE (NEGATIVE); UROBILINOGEN,URINE 0.2 (NORMAL) E.U./dL (NORMAL)
[2020-04-18] MEDS: ACETAMINOPHEN 325 MG TABLET PO PRN (16:30)
[2020-04-18 16:31] LABS: CLARITY,URINE CLEAR (CLEAR)
[2020-04-18] MEDS: SODIUM CHLORIDE FLUSH 0.9% 10 ML SYRINGE IVP SCH (17:25)
[2020-04-18] MEDS: INSULIN ASPART 300 UNIT/3 ML PEN SUBQ SCH ×2 (17:25→21:13)
[2020-04-18] MEDS: BUDESONIDE 0.5 MG/2 ML NEB INH SCH (20:32)
[2020-04-18] MEDS ORDERED: GUAIFENESIN 800 MG PO SCH (21:00)
[2020-04-18] MEDS: INSULIN GLARGINE 300 UNIT/3 ML PEN SUBQ SCH (21:13)
[2020-04-18] MEDS: CALCIUM CITRATE 250 MG TABLET PO SCH (22:06)
[2020-04-19] MEDS: SODIUM CHLORIDE FLUSH 0.9% 10 ML SYRINGE IVP SCH ×3 (01:32→17:04)
[2020-04-19] MEDS: PANTOPRAZOLE 40 MG TABLET PO SCH (06:05)
[2020-04-19 06:18] LABS: BASOPHILS % (AUTO) 0.4 %; EOSINOPHILS % (AUTO) 0.1 %; HGB - HEMOGLOBIN 10.8 g/dL (14.0-18.0); LYMPHOCYTES # (AUTO) 0.9 10^3/uL (1.5-3.5); LYMPHOCYTES % (AUTO) 11.4 %; MEAN CORPUSCULAR HEMOGLOBIN 27.3 pg (27.0-31.0); MEAN CORPUSCULAR HGB CONC 30.9 g/dL (32.0-36.0); MEAN CORPUSCULAR VOLUME 88.4 fL (80.0-94.0); MEAN PLATELET VOLUME 8.8 fL (7.4-11.4); MONOCYTES # (AUTO) 0.9 10^3/uL (0.0-1.0); MONOCYTES % (AUTO) 11.6 %; NEUTROPHILS # (AUTO) 6.1 10^3/uL (1.5-6.6); NEUTROPHILS % (AUTO) 75.9 %; PLT - PLATELET COUNT 513 10^3/uL (130-450); RED BLOOD COUNT 3.96 10^6/uL (4.70-6.10); WHITE BLOOD COUNT 8.1 x10^3/uL (4.8-10.8)
[2020-04-19 06:26] LABS: CALCIUM 8.8 mg/dL (8.5-10.3); CREATININE 0.6 mg/dL (0.6-1.2)
[2020-04-19] MEDS: ACETAMINOPHEN 325 MG TABLET PO PRN ×4 (06:42→21:05)
[2020-04-19] MEDS ORDERED: POTASSIUM CHLORIDE 20 MEQ TABLET PO SCH (07:18)
[2020-04-19] MEDS: BUDESONIDE 0.5 MG/2 ML NEB INH SCH ×2 (07:29→20:37)
[2020-04-19] MEDS: ALBUTEROL NEB 2.5 MG/3 ML INH PRN ×2 (07:29→13:05)
[2020-04-19] MEDS: CHOLECALCIFEROL 25 MCG TABLET PO SCH (09:21)
[2020-04-19] MEDS: predniSONE 10 MG TABLET PO SCH (09:22)
[2020-04-19] MEDS: guaiFENesin 100 MG/5 ML UDC PO SCH ×2 (09:22→21:05)
[2020-04-19] MEDS: ENOXAPARIN 40 MG/0.4 ML SYRINGE SUBQ SCH (09:23)
[2020-04-19] MEDS: guaiFENesin 600 MG TABLET PO SCH ×2 (09:23→21:05)
[2020-04-19] MEDS: LOSARTAN 50 MG TABLET PO SCH (09:23)
[2020-04-19] MEDS: INSULIN ASPART 300 UNIT/3 ML PEN SUBQ SCH ×4 (09:28→21:05)
[2020-04-19] MEDS: levoFLOXacin 750 MG/150 ML 750 MG/150 ML BAG IV SCH (09:31)
--- NOTE | 2020-04-19 13:08 | PROVIDER PROGRESS NOTE ---
Subjective - Prog Note Date Prog Note Date: 04/19/20 - Subjective Subjective: Feels a little better today and his feels that he has improved but still not at his baseline. He still a little tremulous predominately in his lower extremities. He knows he is in the hospital but he thinks he has been here for 2 days although he was just admitted yesterday. He knows the month and year. Current Medications - Current Medications Current Medications: Active Medications Acetaminophen (Tylenol) 650 mg PO Q4HR PRN PRN Reason: Pain 1 to 4 Last Admin: 04/19/20 11:03 Dose: 650 mg Documented by: Albuterol () 2.5 mg INH Q4H PRN PRN Reason: Wheezing Last Admin: 04/19/20 07:29 Dose: 2.5 mg Documented by: Albuterol/Ipratropium (Duoneb) 3 ml INH Q6H PRN PRN Reason: Wheezing Budesonide (Pulmicort) 0.5 mg INH RTBID [facility] Last Admin: 04/19/20 07:29 Dose: 0.5 mg Documented by: Calcium Citrate () 1,000 mg PO HS [facility] Last Admin: 04/18/20 22:06 Dose: Not Given Documented by: Cholecalciferol (Vitamin D3) 50 mcg PO DAILY [facility] Last Admin: 04/19/20 09:21 Dose: 50 mcg Documented by: Enoxaparin Sodium (Lovenox) 40 mg SUBQ DAILY [facility] Last Admin: 04/19/20 09:23 Dose: 40 mg Documented by: Guaifenesin (Mucinex) 600 mg PO BID [facility] Last Admin: 04/19/20 09:23 Dose: 600 mg Documented by: Guaifenesin (Robitussin Liquid) 200 mg PO BID [facility] Last Admin: 04/19/20 09:22 Dose: 200 mg Documented by: Levofloxacin (Levaquin 750 Mg/150 Ml) 750 mg in 150 mls @ 100 mls/hr IV Q24H [facility] Stop: 04/22/20 10:29 Last Infusion: 04/19/20 11:03 Dose: Infused Documented by: Insulin Aspart (Novolog) 1 - 9 unit SUBQ 0800,1200,1700,2100 [facility]; Protocol Last Admin: 04/19/20 12:06 Dose: 1 unit Documented by: Insulin Glargine (Lantus Solostar) 10 unit SUBQ QPM [facility] Last Admin: 04/18/20 21:13 Dose: 10 unit Documented by: Losartan Potassium (Cozaar) 50 mg PO DAILY [facility] Last Admin: 04/19/20 09:23 Dose: 50 mg Documented by: Non-Formulary Medication (Umeclidinium Vesper [Incruse Ellipta]) 1 puffs INH DAILY [facility] Ondansetron HCl (Zofran Inj) 4 mg IVP Q6HR PRN PRN Reason: Nausea / Vomiting Pantoprazole Sodium (Protonix) 40 mg PO QDAC [facility] Last Admin: 04/19/20 06:05 Dose: 40 mg Documented by: Prednisone (Deltasone) 50 mg PO DAILY [facility] Last Admin: 04/19/20 09:22 Dose: 50 mg Documented by: Sodium Chloride (Normal Saline Flush 0.9%) 10 ml IVP PRN PRN PRN Reason: NEEDED PER PROVIDER ORDERS Sodium Chloride (Normal Saline Flush 0.9%) 10 ml IVP 0100,0900,1700 [facility] Last Admin: 04/19/20 09:31 Dose: 10 ml Documented by: Acetaminophen [Tylenol] 650 mg PO Q4HR PRN 03/30/18 Albuterol Sulfate [Proair Hfa Inhaler] 1 - 2 puffs INH Q4H PRN 03/30/18 Beclomethasone 80 Mcg [Qvar 80] 2 puffs INH BID 03/30/18 Calcium Citrate 1,000 mg PO QPM 03/30/18 Cholecalciferol (Vitamin D3) [Vitamin D3] 2,000 unit PO DAILY 03/30/18 Fexofenadine HCl 90 mg PO DAILY 03/30/18 Omeprazole [PriLOSEC] 20 mg PO QDAC 03/30/18 Telmisartan [Micardis] 40 mg PO DAILY 03/30/18 predniSONE [Prednisone] 50 mg PO DAILY 02/15/19 Azithromycin [Zithromax] 250 mg PO MOWEFR 11/05/19 guaiFENesin [Guaifenesin] 800 mg PO BID 11/05/19 metFORMIN [Glucophage] 500 mg PO DAILYWM 11/05/19 Albuterol 2.5 mg INH Q4H PRN 04/11/20 Duloxetine HCl 60 mg PO DAILY 04/11/20 Ipratropium/Albuterol [Combivent Respimat] 1 puffs INH Q6H PRN 04/11/20 Ipratropium/Albuterol [Duoneb] 3 ml INH Q6H PRN 04/11/20 Lidocaine Patch 5% [Lidoderm Patch] 1 patch TOP DAILY PRN 04/11/20 Umeclidinium Vesper [Incruse Ellipta] 1 puffs INH DAILY 04/11/20 Objective - Vital Signs/Intake & Output Reviewed Vital Signs: Yes Vital Signs: Vital Signs x48h Temp Pulse Pulse Resp BP Pulse Ox 04/19/20 11:46 36.5 C 115 H 18 135/78 H 96 04/19/20 07:40 36.5 C 116 H 18 167/99 H 95 04/19/20 07:34 98 18 Intake & Output: Intake & Output 04/16/20 04/17/20 04/18/20 04/19/20 23:59 23:59 23:59 23:59 Intake Total 490 390 Output Total 650 2200 Balance -160 -1810 - Objective General Appearance: positive: No acute distress, Alert Eyes Bilateral: positive: Normal inspection, PERRL, Conjunctivae nml ENT: positive: ENT inspection nml Neck: positive: Nml inspection Respiratory: positive: No respiratory distress. negative: Wheezes, Rales Cardiovascular: positive: No murmur, Tachycardia. negative: Regular rate & rhythm, Irregularly irregular, Bradycardia, Systolic murmur Abdomen: positive: Non-tender, No distention. negative: Tenderness, Guarding, Rebound Skin: positive: Warm, Dry Extremities: positive: No pedal edema Neurologic/Psychiatric: positive: Other (No blood deficits on exam. He still has 1-2 beats of clonus in his bilateral lower extremities. Speech is less pressured and tangential today. He is quicker to respond to questions.). negative: Disoriented to person, Disoriented to place, Disoriented to time - Lab Results Fish Bones: 04/19/20 04:55 04/19/20 04:55 Other Labs: Lab Results x24hrs 04/19/20 04/19/20 04/18/20 Range/Units 04:55 04:55 15:51 WBC 8.1 (4.8-10.8) x10^3/uL RBC 3.96 L (4.70-6.10) 10^6/uL Hgb 10.8 L (14.0-18.0) g/dL Hct 35.0 L (42.0-52.0) % MCV 88.4 (80.0-94.0) fL MCH 27.3 (27.0-31.0) pg MCHC 30.9 L (32.0-36.0) g/dL RDW 15.0 (12.0-15.0) % Plt Count 513 H (130-450) 10^3/uL MPV 8.8 (7.4-11.4) fL Neut # (Auto) 6.1 (1.5-6.6) 10^3/uL Lymph # (Auto) 0.9 L (1.5-3.5) 10^3/uL [place] # (Auto) 0.9 (0.0-1.0) 10^3/uL Eos # (Auto) 0.0 (0.0-0.7) 10^3/uL Baso # (Auto) 0.0 (0.0-0.1) 10^3/uL Absolute Nucleated RBC 0.00 x10^3/uL Nucleated RBC % 0.0 /100WBC Sodium 142 (135-145) mmol/L Potassium 3.3 L (3.5-5.0) mmol/L Chloride 104 (101-111) mmol/L Carbon Dioxide 27 (21-32) mmol/L Anion Gap 11.0 (6-13) BUN 10 (6-20) mg/dL Creatinine 0.6 (0.6-1.2) mg/dL Estimated GFR (MDRD) 139 (>89) Glucose 114 H (70-100) mg/dL Lactic Acid (0.5-2.2) mmol/L Calcium 8.8 (8.5-10.3) mg/dL Total Bilirubin (0.2-1.0) mg/dL AST (10-42) IU/L ALT (10-60) IU/L Alkaline Phosphatase (42-121) IU/L Ammonia (7-35) umol/L Total Creatine Kinase (22-269) IU/L Troponin I High Sens (2.3-19.7) ng/L B-Natriuretic Peptide (5-100) pg/mL Total Protein (6.7-8.2) g/dL Albumin (3.2-5.5) g/dL Globulin (2.1-4.2) g/dL Albumin/Globulin Ratio (1.0-2.2) Lipase (22-51) U/L TSH (0.34-5.60) uIU/mL Urine Color LT. YELLOW Urine Clarity CLEAR (CLEAR) Urine pH 6.0 (5.0-7.5) PH Ur Specific [place] 1.010 (1.002-1.030) Urine Protein NEGATIVE (NEGATIVE) mg/dL Urine Glucose (UA) NEGATIVE (NEGATIVE) mg/dL Urine Ketones NEGATIVE (NEGATIVE) mg/dL Urine Occult Blood TRACE-INTA (NEGATIVE) Urine Nitrite NEGATIVE (NEGATIVE) Urine Bilirubin NEGATIVE (NEGATIVE) Urine Urobilinogen 0.2 (NORMAL) (NORMAL) E.U./dL Ur Leukocyte Esterase NEGATIVE (NEGATIVE) Ur Microscopic Review NOT INDICATED Urine Culture Comments NOT INDICATED Salicylates mg/dL Urine Opiates Screen (NEGATIVE) Ur Oxycodone Screen (NEGATIVE) Urine Methadone Screen (NEGATIVE) Ur Propoxyphene Screen (NEGATIVE) Acetaminophen (10-30) ug/mL Ur Barbiturates Screen (NEGATIVE) Ur Tricyclics Screen (NEGATIVE) Ur Phencyclidine Scrn (NEGATIVE) Ur Amphetamine Screen (NEGATIVE) U Methamphetamines Scrn (NEGATIVE) U Benzodiazepines Scrn (NEGATIVE) Urine Cocaine Screen (NEGATIVE) U Cannabinoids Screen (NEGATIVE) Ethyl Alcohol mg/dL Coronavirus (PCR) 04/18/20 04/18/20 04/18/20 Range/Units 15:51 14:55 14:25 WBC (4.8-10.8) x10^3/uL RBC (4.70-6.10) 10^6/uL Hgb (14.0-18.0) g/dL Hct (42.0-52.0) % MCV (80.0-94.0) fL MCH (27.0-31.0) pg MCHC (32.0-36.0) g/dL RDW (12.0-15.0) % Plt Count (130-450) 10^3/uL MPV (7.4-11.4) fL Neut # (Auto) (1.5-6.6) 10^3/uL Lymph # (Auto) (1.5-3.5) 10^3/uL [place] # (Auto) (0.0-1.0) 10^3/uL Eos # (Auto) (0.0-0.7) 10^3/uL Baso # (Auto) (0.0-0.1) 10^3/uL Absolute Nucleated RBC x10^3/uL Nucleated RBC % /100WBC Sodium (135-145) mmol/L Potassium (3.5-5.0) mmol/L Chloride (101-111) mmol/L Carbon Dioxide (21-32) mmol/L Anion Gap (6-13) BUN (6-20) mg/dL Creatinine (0.6-1.2) mg/dL Estimated GFR (MDRD) (>89) Glucose (70-100) mg/dL Lactic Acid (0.5-2.2) mmol/L Calcium (8.5-10.3) mg/dL Total Bilirubin (0.2-1.0) mg/dL AST (10-42) IU/L ALT (10-60) IU/L Alkaline Phosphatase (42-121) IU/L Ammonia (7-35) umol/L Total Creatine Kinase 48 (22-269) IU/L Troponin I High Sens (2.3-19.7) ng/L B-Natriuretic Peptide (5-100) pg/mL Total Protein (6.7-8.2) g/dL Albumin (3.2-5.5) g/dL Globulin (2.1-4.2) g/dL Albumin/Globulin Ratio (1.0-2.2) Lipase (22-51) U/L TSH 0.30 L (0.34-5.60) uIU/mL Urine Color Urine Clarity (CLEAR) Urine pH (5.0-7.5) PH Ur Specific [place] (1.002-1.030) Urine Protein (NEGATIVE) mg/dL Urine Glucose (UA) (NEGATIVE) mg/dL Urine Ketones (NEGATIVE) mg/dL Urine Occult Blood (NEGATIVE) Urine Nitrite (NEGATIVE) Urine Bilirubin (NEGATIVE) Urine Urobilinogen (NORMAL) E.U./dL Ur Leukocyte Esterase (NEGATIVE) Ur Microscopic Review Urine Culture Comments Salicylates mg/dL Urine Opiates Screen NEGATIVE (NEGATIVE) Ur Oxycodone Screen NEGATIVE (NEGATIVE) Urine Methadone Screen NEGATIVE (NEGATIVE) Ur Propoxyphene Screen NEGATIVE (NEGATIVE) Acetaminophen (10-30) ug/mL Ur Barbiturates Screen NEGATIVE (NEGATIVE) Ur Tricyclics Screen NEGATIVE (NEGATIVE) Ur Phencyclidine Scrn NEGATIVE (NEGATIVE) Ur Amphetamine Screen NEGATIVE (NEGATIVE) U Methamphetamines Scrn NEGATIVE (NEGATIVE) U Benzodiazepines Scrn NEGATIVE (NEGATIVE) Urine Cocaine Screen NEGATIVE (NEGATIVE) U Cannabinoids Screen POSITIVE H (NEGATIVE) Ethyl Alcohol mg/dL Coronavirus (PCR) 04/18/20 04/18/20 04/18/20 Range/Units 14:25 14:25 13:52 WBC (4.8-10.8) x10^3/uL RBC (4.70-6.10) 10^6/uL Hgb (14.0-18.0) g/dL Hct (42.0-52.0) % MCV (80.0-94.0) fL MCH (27.0-31.0) pg MCHC (32.0-36.0) g/dL RDW (12.0-15.0) % Plt Count (130-450) 10^3/uL MPV (7.4-11.4) fL Neut # (Auto) (1.5-6.6) 10^3/uL Lymph # (Auto) (1.5-3.5) 10^3/uL [place] # (Auto) (0.0-1.0) 10^3/uL Eos # (Auto) (0.0-0.7) 10^3/uL Baso # (Auto) (0.0-0.1) 10^3/uL Absolute Nucleated RBC x10^3/uL Nucleated RBC % /100WBC Sodium (135-145) mmol/L Potassium (3.5-5.0) mmol/L Chloride (101-111) mmol/L Carbon Dioxide (21-32) mmol/L Anion Gap (6-13) BUN (6-20) mg/dL Creatinine (0.6-1.2) mg/dL Estimated GFR (MDRD) (>89) Glucose (70-100) mg/dL Lactic Acid 1.2 (0.5-2.2) mmol/L Calcium (8.5-10.3) mg/dL Total Bilirubin (0.2-1.0) mg/dL AST (10-42) IU/L ALT (10-60) IU/L Alkaline Phosphatase (42-121) IU/L Ammonia < 10.0 (7-35) umol/L Total Creatine Kinase (22-269) IU/L Troponin I High Sens 8.6 (2.3-19.7) ng/L B-Natriuretic Peptide (5-100) pg/mL Total Protein (6.7-8.2) g/dL Albumin (3.2-5.5) g/dL Globulin (2.1-4.2) g/dL Albumin/Globulin Ratio (1.0-2.2) Lipase (22-51) U/L TSH (0.34-5.60) uIU/mL Urine Color Urine Clarity (CLEAR) Urine pH (5.0-7.5) PH Ur Specific [place] (1.002-1.030) Urine Protein (NEGATIVE) mg/dL Urine Glucose (UA) (NEGATIVE) mg/dL Urine Ketones (NEGATIVE) mg/dL Urine Occult Blood (NEGATIVE) Urine Nitrite (NEGATIVE) Urine Bilirubin (NEGATIVE) Urine Urobilinogen (NORMAL) E.U./dL Ur Leukocyte Esterase (NEGATIVE) Ur Microscopic Review Urine Culture Comments Salicylates mg/dL Urine Opiates Screen (NEGATIVE) Ur Oxycodone Screen (NEGATIVE) Urine Methadone Screen (NEGATIVE) Ur Propoxyphene Screen (NEGATIVE) Acetaminophen (10-30) ug/mL Ur Barbiturates Screen (NEGATIVE) Ur Tricyclics Screen (NEGATIVE) Ur Phencyclidine Scrn (NEGATIVE) Ur Amphetamine Screen (NEGATIVE) U Methamphetamines Scrn (NEGATIVE) U Benzodiazepines Scrn (NEGATIVE) Urine Cocaine Screen (NEGATIVE) U Cannabinoids Screen (NEGATIVE) Ethyl Alcohol mg/dL Coronavirus (PCR) 04/18/20 04/18/20 04/18/20 Range/Units 13:50 13:10 13:10 WBC (4.8-10.8) x10^3/uL RBC (4.70-6.10) 10^6/uL Hgb (14.0-18.0) g/dL Hct (42.0-52.0) % MCV (80.0-94.0) fL MCH (27.0-31.0) pg MCHC (32.0-36.0) g/dL RDW (12.0-15.0) % Plt Count (130-450) 10^3/uL MPV (7.4-11.4) fL Neut # (Auto) (1.5-6.6) 10^3/uL Lymph # (Auto) (1.5-3.5) 10^3/uL [place] # (Auto) (0.0-1.0) 10^3/uL Eos # (Auto) (0.0-0.7) 10^3/uL Baso # (Auto) (0.0-0.1) 10^3/uL Absolute Nucleated RBC x10^3/uL Nucleated RBC % /100WBC Sodium (135-145) mmol/L Potassium (3.5-5.0) mmol/L Chloride (101-111) mmol/L Carbon Dioxide (21-32) mmol/L Anion Gap (6-13) BUN (6-20) mg/dL Creatinine (0.6-1.2) mg/dL Estimated GFR (MDRD) (>89) Glucose (70-100) mg/dL Lactic Acid (0.5-2.2) mmol/L Calcium (8.5-10.3) mg/dL Total Bilirubin (0.2-1.0) mg/dL AST (10-42) IU/L ALT (10-60) IU/L Alkaline Phosphatase (42-121) IU/L Ammonia (7-35) umol/L Total Creatine Kinase (22-269) IU/L Troponin I High Sens 8.6 (2.3-19.7) ng/L B-Natriuretic Peptide 19 (5-100) pg/mL Total Protein (6.7-8.2) g/dL Albumin (3.2-5.5) g/dL Globulin (2.1-4.2) g/dL Albumin/Globulin Ratio (1.0-2.2) Lipase (22-51) U/L TSH (0.34-5.60) uIU/mL Urine Color Urine Clarity (CLEAR) Urine pH (5.0-7.5) PH Ur Specific [place] (1.002-1.030) Urine Protein (NEGATIVE) mg/dL Urine Glucose (UA) (NEGATIVE) mg/dL Urine Ketones (NEGATIVE) mg/dL Urine Occult Blood (NEGATIVE) Urine Nitrite (NEGATIVE) Urine Bilirubin (NEGATIVE) Urine Urobilinogen (NORMAL) E.U./dL Ur Leukocyte Esterase (NEGATIVE) Ur Microscopic Review Urine Culture Comments Salicylates mg/dL Urine Opiates Screen (NEGATIVE) Ur Oxycodone Screen (NEGATIVE) Urine Methadone Screen (NEGATIVE) Ur Propoxyphene Screen (NEGATIVE) Acetaminophen (10-30) ug/mL Ur Barbiturates Screen (NEGATIVE) Ur Tricyclics Screen (NEGATIVE) Ur Phencyclidine Scrn (NEGATIVE) Ur Amphetamine Screen (NEGATIVE) U Methamphetamines Scrn (NEGATIVE) U Benzodiazepines Scrn (NEGATIVE) Urine Cocaine Screen (NEGATIVE) U Cannabinoids Screen (NEGATIVE) Ethyl Alcohol mg/dL Coronavirus (PCR) NEGATIVE 04/18/20 04/18/20 Range/Units 13:10 13:10 WBC 11.8 H (4.8-10.8) x10^3/uL RBC 3.94 L (4.70-6.10) 10^6/uL Hgb 11.1 L (14.0-18.0) g/dL Hct 35.4 L (42.0-52.0) % MCV 89.8 (80.0-94.0) fL MCH 28.2 (27.0-31.0) pg MCHC 31.4 L (32.0-36.0) g/dL RDW 15.3 H (12.0-15.0) % Plt Count 481 H (130-450) 10^3/uL MPV 8.6 (7.4-11.4) fL Neut # (Auto) 10.2 H (1.5-6.6) 10^3/uL Lymph # (Auto) 0.6 L (1.5-3.5) 10^3/uL [place] # (Auto) 0.8 (0.0-1.0) 10^3/uL Eos # (Auto) 0.0 (0.0-0.7) 10^3/uL Baso # (Auto) 0.0 (0.0-0.1) 10^3/uL Absolute Nucleated RBC 0.00 x10^3/uL Nucleated RBC % 0.0 /100WBC Sodium 136 (135-145) mmol/L Potassium 3.8 (3.5-5.0) mmol/L Chloride 93 L (101-111) mmol/L Carbon Dioxide 24 (21-32) mmol/L Anion Gap 19.0 H (6-13) BUN 14 (6-20) mg/dL Creatinine 1.0 (0.6-1.2) mg/dL Estimated GFR (MDRD) 77 L (>89) Glucose 212 H (70-100) mg/dL Lactic Acid (0.5-2.2) mmol/L Calcium 9.9 (8.5-10.3) mg/dL Total Bilirubin 0.8 (0.2-1.0) mg/dL AST 13 (10-42) IU/L ALT 22 (10-60) IU/L Alkaline Phosphatase 74 (42-121) IU/L Ammonia (7-35) umol/L Total Creatine Kinase (22-269) IU/L Troponin I High Sens (2.3-19.7) ng/L B-Natriuretic Peptide (5-100) pg/mL Total Protein 7.2 (6.7-8.2) g/dL Albumin 3.8 (3.2-5.5) g/dL Globulin 3.4 (2.1-4.2) g/dL Albumin/Globulin Ratio 1.1 (1.0-2.2) Lipase 62 H (22-51) U/L TSH (0.34-5.60) uIU/mL Urine Color Urine Clarity (CLEAR) Urine pH (5.0-7.5) PH Ur Specific [place] (1.002-1.030) Urine Protein (NEGATIVE) mg/dL Urine Glucose (UA) (NEGATIVE) mg/dL Urine Ketones (NEGATIVE) mg/dL Urine Occult Blood (NEGATIVE) Urine Nitrite (NEGATIVE) Urine Bilirubin (NEGATIVE) Urine Urobilinogen (NORMAL) E.U./dL Ur Leukocyte Esterase (NEGATIVE) Ur Microscopic Review Urine Culture Comments Salicylates < 6.0 mg/dL Urine Opiates Screen (NEGATIVE) Ur Oxycodone Screen (NEGATIVE) Urine Methadone Screen (NEGATIVE) Ur Propoxyphene Screen (NEGATIVE) Acetaminophen < 10 L (10-30) ug/mL Ur Barbiturates Screen (NEGATIVE) Ur Tricyclics Screen (NEGATIVE) Ur Phencyclidine Scrn (NEGATIVE) Ur Amphetamine Screen (NEGATIVE) U Methamphetamines Scrn (NEGATIVE) U Benzodiazepines Scrn (NEGATIVE) Urine Cocaine Screen (NEGATIVE) U Cannabinoids Screen (NEGATIVE) Ethyl Alcohol < 5.0 mg/dL Coronavirus (PCR) ABX Reporting Has patient been on IV antibiotics over the past 48 hours?: Yes Assessment/Plan - Problem List (1) Encephalopathy Impression: Suspect this is likely less serotonin syndrome and more likely due to the use of Flexeril. He had just been hospitalized after taking 40 mg of Flexeril and after being discharged home he had been doing well the first 48 hours. He was then taking Flexeril 10 mg twice daily and over time became encephalopathic again. Today he has shown improvement but still not quite to his baseline. He is still slow to respond to questions at times and is still somewhat confused but definitely improved compared to yesterday. We will continue to hold all sedatives at this time. Do not feel an MRI would be of benefit at this time. The Flexeril will need to be discontinued on discharge given this is his second admission for encephalopathy and the medication had just been started 1 week ago. (2) Community acquired pneumonia Impression: He is saturating well on room air with no respiratory distress. We will continue him on Levaquin for 5 days of therapy. (3) Severe persistent asthma Impression: Stable and not in exacerbation. We will continue his home inhalers as well as his chronic prednisone. (4) Steroid-induced diabetes mellitus Impression: His blood sugars have varied from 100-170s. We will continue him on his current regimen of Lantus and sliding scale. Carb controlled diet. Qualifiers: Encounter type: initial encounter Qualified Code(s): E09.9 - Drug or chemical induced diabetes mellitus without complications; T38.0X5A - Adverse effect of glucocorticoids and synthetic analogues, initial encounter (5) Chronic back pain Impression: Stable at this time. We will continue with Tylenol as needed. He has been off of oxycodone for 2 weeks and his is concerned about resuming this as she does not want him to be opioid dependent. He had an MRI on outpatient basis recently and has been referred to pain management and orthopedics. He will need outpatient follow up. Qualifiers: Back pain location: low back pain Back pain laterality: right Sciatica presence: with sciatica Sciatica laterality: sciatica of right side Qualified Code(s): M54.41 - Lumbago with sciatica, right side; G89.29 - Other chronic pain (6) Hypertension Impression: His blood pressure has been well controlled on his home antihypertensives which we will continue. Qualifiers: Hypertension type: essential hypertension Qualified Code(s): I10 - Essential (primary) hypertension (7) Sleep apnea Impression: I encouraged him to use his home CPAP which he has been not very compliant with.
[2020-04-19] MEDS: UMECLIDINIUM BROMIDE INH SCH (14:07)
[2020-04-19] MEDS: IPRATROPIUM/ALBUTEROL 3 ML NEB INH PRN ×2 (16:51→20:37)
[2020-04-19] MEDS: CALCIUM CITRATE 250 MG TABLET PO SCH (21:04)
[2020-04-19] MEDS: INSULIN GLARGINE 300 UNIT/3 ML PEN SUBQ SCH (21:06)
[2020-04-20] MEDS: ACETAMINOPHEN 325 MG TABLET PO PRN ×3 (00:51→09:32)
[2020-04-20] MEDS: SODIUM CHLORIDE FLUSH 0.9% 10 ML SYRINGE IVP SCH ×2 (00:53→07:59)
[2020-04-20] MEDS: ALBUTEROL NEB 2.5 MG/3 ML INH PRN (01:00)
[2020-04-20 05:24] LABS: BASOPHILS % (AUTO) 0.2 %; HGB - HEMOGLOBIN 10.2 g/dL (14.0-18.0); LYMPHOCYTES # (AUTO) 1.1 10^3/uL (1.5-3.5); LYMPHOCYTES % (AUTO) 11.8 %; MEAN CORPUSCULAR HEMOGLOBIN 27.9 pg (27.0-31.0); MEAN CORPUSCULAR HGB CONC 30.7 g/dL (32.0-36.0); MEAN CORPUSCULAR VOLUME 90.7 fL (80.0-94.0); MEAN PLATELET VOLUME 8.8 fL (7.4-11.4); MONOCYTES # (AUTO) 1.1 10^3/uL (0.0-1.0); MONOCYTES % (AUTO) 12.3 %; NEUTROPHILS # (AUTO) 6.7 10^3/uL (1.5-6.6); PLT - PLATELET COUNT 566 10^3/uL (130-450); RED BLOOD COUNT 3.66 10^6/uL (4.70-6.10); RED CELL DISTRIBUTION WIDTH 15.2 % (12.0-15.0); WHITE BLOOD COUNT 8.9 x10^3/uL (4.8-10.8)
[2020-04-20 05:35] LABS: CALCIUM 8.8 mg/dL (8.5-10.3); CREATININE 0.8 mg/dL (0.6-1.2)
[2020-04-20] MEDS: PANTOPRAZOLE 40 MG TABLET PO SCH (05:35)
[2020-04-20] MEDS: guaiFENesin 100 MG/5 ML UDC PO SCH (07:48)
[2020-04-20] MEDS: ENOXAPARIN 40 MG/0.4 ML SYRINGE SUBQ SCH (07:48)
[2020-04-20] MEDS: predniSONE 10 MG TABLET PO SCH (07:48)
[2020-04-20] MEDS: LOSARTAN 50 MG TABLET PO SCH (07:49)
[2020-04-20] MEDS: guaiFENesin 600 MG TABLET PO SCH (07:49)
[2020-04-20] MEDS: CHOLECALCIFEROL 25 MCG TABLET PO SCH (07:49)
[2020-04-20] MEDS: BUDESONIDE 0.5 MG/2 ML NEB INH SCH (07:52)
[2020-04-20] MEDS: IPRATROPIUM/ALBUTEROL 3 ML NEB INH PRN (07:52)
[2020-04-20] MEDS: levoFLOXacin 750 MG/150 ML 750 MG/150 ML BAG IV SCH (07:54)
[2020-04-20] MEDS: INSULIN ASPART 300 UNIT/3 ML PEN SUBQ SCH (08:04)
--- NOTE | 2020-04-20 08:16 | Discharge Plan ---
Discharge Plan Problem Reviewed?: Yes Disposition: Home, Self Care Condition: Fair Prescriptions: levoFLOXacin [Levaquin] 750 mg PO DAILY #15 tablet Diet: Diabetic Activity Restrictions: Activity as Tolerated Shower Restrictions: No Driving Restrictions: No Health Concerns: The first episode was due to Flexeril. When you went home you resumed the Flexeril. It caused another episode of confusion. You also have asthma. The treatment of asthma is with steroids and is giving you diabetes. You were brought to the hospital with a second episode of confusion. Plan of Treatment: 1. Flexeril was discontinued. 2. To control your almost psychotic confused behavior, you were giving a sedative called Ativan as needed. 3. Your diabetes was treated with Lantus and short acting insulin. 4. Continue levaquin for 5 more days for an early pneumonia seen on chest xray. Care Goals: 1. Please avoid taking any type of muscle relaxant in the future. They are of various types, including long-acting Flexeril. Do not take Flexeril or long- acting Flexeril specifically. 2. You may return to work Sunday, April 26. You can return to full duties without restrictions. 3. Please see your primary care provider, Delvin Zhao, in the next 2 weeks. Assessment: Patient understands instructions and agrees to follow through. No Smoking: If you smoke, Please STOP! Call for help. Follow-up with: Delvin Zhao MD [Primary Care Provider] -
[2020-04-20] MEDS ORDERED: polyethylene glycoL 3350 17 GM PACKET PO SCH (09:00)
[2020-04-20] MEDS: UMECLIDINIUM BROMIDE INH SCH (09:32)
[2020-04-20 09:36] VITALS: BP 122/61
--- NOTE | 2020-04-20 18:46 | DISCHARGE SUMMARY ---
Discharge Summary Admit Date: 04/18/20 Discharge Date: 04/20/20 Discharging Provider: Lisset Jorge MD Primary Care Provider: Delvin Zhao MD Code Status: Attempt Resuscitation Condition at Discharge: Fair Discharge Disposition: 01 Home, Self Care - DIAGNOSES Discharge Diagnoses with Status of Each Condition: 1. Encephalopathy 2. Drug reaction resulting in brief psychotic state 3. Community-acquired pneumonia 4. Severe persistent asthma 5. Steroid-induced diabetes mellitus 6. Chronic back pain 7. Hypertension 8. Obstructive sleep apnea - HPI History of Present Illness: This is a 54-year-old male with a past medical history significant for severe persistent asthma on chronic prednisone, diabetes secondary to chronic steroid use, chronic lower back pain who presents today complaining of back pain. The patient had just been discharged a few days ago from the hospital after he was admitted for acute encephalopathy which was attributed to the use of Flexeril. The patient had taken 40 mg of Flexeril and had become altered and quite agitated. He improved over a couple days while hospitalized and was discharged home. His states that since he has been home he did well the first 2 days. She noted that on Sunday he became quite confused and more agitated. He was also quite restless and fidgety. She reports he did not sleep at all last night and he has been out and about walking. The patient presents today complaining of lower back pain. He reports he had an MRI of his lumbar and cervical spines last week. This is confirmed by his spouse. He is requesting pain medication. He has not been on oxycodone for over 2 weeks. His spouse states that she has been controlling his Flexeril and has been only getting 1 tablet twice a day as initially prescribed. He did receive Flexeril this morning. He is also on Cymbalta for depression/anxiety. He reports no chest pain, dyspnea. He reports an occasional nonproductive cough. He denies any fevers, chills, sore throat, recent sick contacts. He does note lower extremity edema which his attributes to him being on his feet for over the past 24 hours. He denies any dysuria, urgency, frequency. He has no prior history of heart failure. His spouse notes that he did have some diarrhea a few weeks ago which was attributed to opiate withdrawal. She believes he may have had a few liquid bowel movements over the past few days. She has noted he is quite tremulous over the past couple of days as well. His spouse reports that he does not drink any alcohol and he has no history of alcohol abuse. In the emergency department, he was afebrile temperature of 37.2 C. He was tachycardic with a heart rate of 125. He was also hypertensive the blood pressure of 161/97. He was tachypneic in the low 20s. He is initially saturating well on room air at 100% although he did desat on falling asleep to the mid 80s. Labs are significant for white count 11.8 with a left shift. His anion gap was elevated at 19. Urine toxicology is positive for cannabis. His alcohol level is negative. Chest x-ray was concerning for bilateral pneumonia. A CT of the head was not obtained as he had one just a few days ago which was unremarkable. Given the findings above, medicine was consulted for admission. Discuss goals of care with the patient and his spouse and he will be a full code. Past Medical History Cardiovascular: reports: Hypertension Respiratory: reports: Asthma, Sleep apnea, CPAP use Neuro: reports: None Endocrine/Autoimmune: reports: Type 2 diabetes GI: reports: GERD : reports: Kidney stones HEENT: reports: None Psych: reports: None Musculoskeletal: reports: Chronic back pain Derm: reports: None - CONSULTS | PROCEDURES Procedures: 1. Chest x-ray with patchy groundglass infiltrates bilaterally suggesting mild pneumonia. 2. Blood cultures negative after 2 days. 3. Coronavirus PCR negative. 4. Toxicology screen negative for salicylates, acetaminophen, ethyl alcohol, and all other usually tested substances other but positive for cannabinoids. - HOSPITAL COURSE Hospital Course: He had already been admitted 1 week before for encephalopathy due to Flexeril overdose. He was very psychotic, belligerent at that time. He eventually improved and was sent home. Even though he was told not to take Flexeril anymore, he began taking it again. He again presents with encephalopathy. He again gradually improved but was not nearly as psychotic as he was before. We again reminded him not to take Flexeril. With regards to his ill-defined groundglass opacities on chest x-ray. They have been present on previous imaging including a CT of October 2019. He states that he has "severe lung disease". He is being followed by a spooler operator automatic. He is currently in the midst of appealing the use of an immune modulating drug being denied to him by his insurance company. He states that he will be following up with his spooler operator automatic after this visit. He was treated as a community-acquired pneumonia with an abundance of precaution. He was never febrile. White cell count was 11.8 on admission was 8.9 by discharge.He was sent home on 2 more days to 3 more days of [facility]. He is also asked to continue his Sunday, Sunday, Sunday azithromycin.He is to taper his steroids according to his pulmonology instructions. On examination at discharge temperature is 36.4, pulse 64, blood pressure 122/61, respirations 18, and is 100% on room air. He has a mildly nasal tone of voice, and delayed and exhalation phase but no outright wheezing. He is mildly tachypneic getting up to walk to the bathroom and back to the bed. Neck is shotty adenopathy. Regular rate and rhythm. Benign abdomen. No pedal edema. Discharged in stable condition. Greater than 30 minutes was spent coordinating discharge. - ALLERGIES Allergies/Adverse Reactions: Allergies Allergy/AdvReac Type Severity Reaction Status Date / Time aspirin Allergy Unknown Verified 04/18/20 12:45 ibuprofen AdvReac Respiratory Verified 04/18/20 12:45 pseudoephedrine AdvReac Unknown Verified 04/18/20 12:45 [From Entex T] - MEDICATIONS Home Medications: Ambulatory Orders Medication Instructions Recorded Confirmed Acetaminophen [Tylenol] 650 mg PO Q4HR PRN 03/30/18 04/18/20 Albuterol Sulfate [Proair Hfa 1 - 2 puffs INH Q4H PRN 03/30/18 04/18/20 Inhaler] Beclomethasone 80 Mcg [Qvar 80] 2 puffs INH BID 03/30/18 04/18/20 Calcium Citrate 1,000 mg PO QPM 03/30/18 04/18/20 Cholecalciferol (Vitamin D3) 2,000 unit PO DAILY 03/30/18 04/18/20 [Vitamin D3] Fexofenadine HCl 90 mg PO DAILY 03/30/18 04/18/20 Omeprazole [PriLOSEC] 20 mg PO QDAC 03/30/18 04/18/20 Telmisartan [Micardis] 40 mg PO DAILY 03/30/18 04/18/20 guaiFENesin [Guaifenesin] 800 mg PO BID 11/05/19 04/18/20 metFORMIN [Glucophage] 500 mg PO DAILYWM 11/05/19 04/18/20 Albuterol 2.5 mg INH Q4H PRN 04/11/20 04/18/20 Duloxetine HCl 60 mg PO DAILY 04/11/20 04/18/20 Ipratropium/Albuterol [Combivent 1 puffs INH Q6H PRN 04/11/20 04/18/20 Respimat] Ipratropium/Albuterol [Duoneb] 3 ml INH Q6H PRN 04/11/20 04/18/20 Lidocaine Patch 5% [Lidoderm Patch] 1 patch TOP DAILY PRN 04/11/20 04/18/20 Umeclidinium [place] [Incruse 1 puffs INH DAILY 04/11/20 04/18/20 Ellipta] levoFLOXacin [Levaquin] 750 mg PO DAILY #15 tablet 04/20/20 predniSONE [Prednisone] 50 mg PO DAILY #0 04/20/20 04/18/20 - LABS Result Diagrams: 04/20/20 04:45 04/20/20 04:45
== END 2020-04-20 10:02 | disposition home or self-care (01) | DRG 917 ==
LOC: ED 12:35 → MS2 14:08
PROVIDERS: ADMIT Internal Medicine; ATTEND Specialist
DX: T48.1X5A Adverse effect of skeletal muscle relaxants [neuromuscular blocking agents], initial encounter (principal); G92 Toxic encephalopathy; J18.9 Pneumonia, unspecified organism; M54.41 Lumbago with sciatica, right side; G89.29 Other chronic pain; J45.50 Severe persistent asthma, uncomplicated; I10 Essential (primary) hypertension; E09.9 Drug or chemical induced diabetes mellitus without complications; T38.0X5D Adverse effect of glucocorticoids and synthetic analogues, subsequent encounter; G47.30 Sleep apnea, unspecified; Y92.009 Unspecified place in unspecified non-institutional (private) residence as the place of occurrence of the external cause; K21.9 Gastro-esophageal reflux disease without esophagitis; F32.9 Major depressive disorder, single episode, unspecified; F41.9 Anxiety disorder, unspecified; Z20.828 Contact with and (suspected) exposure to other viral communicable diseases; Z72.89 Other problems related to lifestyle; Z79.51 Long term (current) use of inhaled steroids; Z79.52 Long term (current) use of systemic steroids; Z79.84 Long term (current) use of oral hypoglycemic drugs; Z79.899 Other long term (current) drug therapy
CPT/HCPCS: 36415; 71045; 80048; 80053; 80306; 80307; 80320; 80329; 81003; 82140; 82550; 83605; 83690; 83880; 84443; 84484; 85025; 87040; 87635; 93005; 94640; 99285; A9270; J1650; J1815; J2060; J7626; 81001; 81599; 87086

== ENCOUNTER 2020-05-03 14:11 | Emergency (ER) | payer OTHER ==
[2020-05-03 14:20] VITALS: BP 142/83
[2020-05-03] MEDS ORDERED: KETOROLAC 60 MG/2 ML VIAL IM STA (15:36)
--- NOTE | 2020-05-03 15:37 | ED Physician Documentation ---
PD HPI BACK PAIN - Stated complaint Stated Complaint: BACK/LEG PX - Chief complaint Chief Complaint: Back Pain - History obtained from History obtained from: Patient - Additional information Additional information: 54-year-old gentleman with steroid dependence asthma presents with an exacerbation of chronic back pain. This is complicated by the fact that he has had a couple problems with encephalopathy and potential drug overdoses with ICU admissions in the last month. Currently unmedicated and is trying to get into pain management. Had a shot of Toradol last week which was very helpful but w ore off and here requesting another one. Pain is in the low back radiating to the right but not down the leg. No weakness, numbness, tingling, saddle anesthesia, or fevers. No incontinence. Review of Systems Constitutional: reports: Reviewed and negative Cardiac: reports: Reviewed and negative Respiratory: reports: Reviewed and negative PD PAST MEDICAL HISTORY - Past Medical History Cardiovascular: Hypertension Respiratory: Asthma, Sleep apnea, CPAP use Neuro: None Endocrine/Autoimmune: Type 2 diabetes GI: GERD : Kidney stones HEENT: None Psych: None Musculoskeletal: Chronic back pain Derm: None - Past Surgical History Past Surgical History: No General: Colonoscopy HEENT: Other - Present Medications Home Medications: Ambulatory Orders Medication Instructions Recorded Confirmed Acetaminophen [Tylenol] 650 mg PO Q4HR PRN 03/30/18 04/18/20 Albuterol Sulfate [Proair Hfa 1 - 2 puffs INH Q4H PRN 03/30/18 04/18/20 Inhaler] Beclomethasone 80 Mcg [Qvar 80] 2 puffs INH BID 03/30/18 04/18/20 Calcium Citrate 1,000 mg PO QPM 03/30/18 04/18/20 Cholecalciferol (Vitamin D3) 2,000 unit PO DAILY 03/30/18 04/18/20 [Vitamin D3] Fexofenadine HCl 90 mg PO DAILY 03/30/18 04/18/20 Omeprazole [PriLOSEC] 20 mg PO QDAC 03/30/18 04/18/20 Telmisartan [Micardis] 40 mg PO DAILY 03/30/18 04/18/20 guaiFENesin [Guaifenesin] 800 mg PO BID 11/05/19 04/18/20 metFORMIN [Glucophage] 500 mg PO DAILYWM 11/05/19 04/18/20 Albuterol 2.5 mg INH Q4H PRN 04/11/20 04/18/20 Duloxetine HCl 60 mg PO DAILY 04/11/20 04/18/20 Ipratropium/Albuterol [Combivent 1 puffs INH Q6H PRN 04/11/20 04/18/20 Respimat] Ipratropium/Albuterol [Duoneb] 3 ml INH Q6H PRN 04/11/20 04/18/20 Lidocaine Patch 5% [Lidoderm Patch] 1 patch TOP DAILY PRN 04/11/20 04/18/20 Umeclidinium [place] [Incruse 1 puffs INH DAILY 04/11/20 04/18/20 Ellipta] levoFLOXacin [Levaquin] 750 mg PO DAILY #15 tablet 04/20/20 predniSONE [Prednisone] 50 mg PO DAILY #0 04/20/20 04/18/20 - Allergies Allergies/Adverse Reactions: Allergies Allergy/AdvReac Type Severity Reaction Status Date / Time aspirin Allergy Unknown Verified 05/03/20 14:21 ibuprofen AdvReac Respiratory Verified 04/18/20 12:45 pseudoephedrine AdvReac Unknown Verified 05/03/20 14:21 [From Entex T] - Social History Does the pt smoke?: No Smoking Status: Never smoker Does the pt drink ETOH?: No Does the pt have substance abuse?: Yes - Immunizations Immunizations are current?: Yes - POLST Patient has POLST: No POLST Status: Full Code PD ED PE NORMAL - Vitals Vital signs reviewed: Yes - General General: Alert and oriented X 3, No acute distress - Back Back: No CVA TTP, No spinal TTP - Extremities Extremities: Other (The patient has equal and normal Achilles and patellar reflexes bilaterally. Normal sensation in all areas of the legs. Patient denies saddle anesthesia. Normal strength in flexion-extension at the ankles, knees, and flexion of the hips.) - Neuro Neuro: Alert and oriented X 3, Normal speech Results - Vitals Vitals: Vital Signs - 24 hr 05/03/20 14:14 Temperature 36.7 C Heart Rate 123 H Respiratory 22 Rate Blood Pressure 142/83 H O2 Saturation 99 Oxygen O2 Source Room air PD MEDICAL DECISION MAKING - ED course ED course: 54-year-old gentleman with an exacerbation of chronic back pain requesting a Toradol shot. No red flags for cauda equina, dissection, AAA, renal colic. Departure - Departure Disposition: 01 Home, Self Care Clinical Impression: Exacerbation of chronic back pain Condition: Good Record reviewed to determine appropriate education?: Yes Instructions: ED Chronic Pain Management Comments: Followup with your PCM as scheduled. Return if worse.
== END 2020-05-03 15:53 | disposition home or self-care (01) ==
LOC: ED 14:11
DX: M54.5 Low back pain (principal); G89.29 Other chronic pain; I10 Essential (primary) hypertension; E11.9 Type 2 diabetes mellitus without complications; Z79.84 Long term (current) use of oral hypoglycemic drugs
CPT/HCPCS: 96372; 99283

== ENCOUNTER 2020-06-25 15:30 | Emergency (ER) | payer OTHER ==
[2020-06-25] MEDS ORDERED: KETOROLAC 60 MG/2 ML VIAL IM STA (17:20)
--- NOTE | 2020-06-25 17:24 | ED Physician Documentation ---
PD HPI BACK PAIN - Stated complaint Stated Complaint: HIP PX - Chief complaint Chief Complaint: Back Pain - History obtained from History obtained from: Patient - History of Present Illness Timing - onset: Chronic Timing - duration: Years Timing - details: Gradual onset Location: Mid, Lower, Right Quality: Pain, Similar to prior episodes Associated symptoms: No: Fever, Weakness, Numbness, Incontinent of urine, Unable to urinate, Hematuria, Incontinent of stool Improves with: Rest Worsened by: Movement - Additional information Additional information: States he has having increased pain and would like a shot of Toradol. He states he called his doctor who told him to come to the emergency department. Patient with no new symptoms. No numbness or tingling. No loss of bowel or bladder control. No new falls. PD PAST MEDICAL HISTORY - Past Medical History Cardiovascular: Hypertension Respiratory: Asthma, Sleep apnea, CPAP use Neuro: None Endocrine/Autoimmune: Type 2 diabetes GI: GERD : Kidney stones HEENT: None Psych: None Musculoskeletal: Chronic back pain Derm: None - Past Surgical History Past Surgical History: No General: Colonoscopy HEENT: Other - Present Medications Home Medications: Ambulatory Orders Medication Instructions Recorded Confirmed Acetaminophen [Tylenol] 650 mg PO Q4HR PRN 03/30/18 04/18/20 Albuterol Sulfate [Proair Hfa 1 - 2 puffs INH Q4H PRN 03/30/18 04/18/20 Inhaler] Beclomethasone 80 Mcg [Qvar 80] 2 puffs INH BID 03/30/18 04/18/20 Calcium Citrate 1,000 mg PO QPM 03/30/18 04/18/20 Cholecalciferol (Vitamin D3) 2,000 unit PO DAILY 03/30/18 04/18/20 [Vitamin D3] Fexofenadine HCl 90 mg PO DAILY 03/30/18 04/18/20 Omeprazole [PriLOSEC] 20 mg PO QDAC 03/30/18 04/18/20 Telmisartan [Micardis] 40 mg PO DAILY 03/30/18 04/18/20 guaiFENesin [Guaifenesin] 800 mg PO BID 11/05/19 04/18/20 metFORMIN [Glucophage] 500 mg PO DAILYWM 11/05/19 04/18/20 Albuterol 2.5 mg INH Q4H PRN 04/11/20 04/18/20 Duloxetine HCl 60 mg PO DAILY 04/11/20 04/18/20 Ipratropium/Albuterol [Combivent 1 puffs INH Q6H PRN 04/11/20 04/18/20 Respimat] Ipratropium/Albuterol [Duoneb] 3 ml INH Q6H PRN 04/11/20 04/18/20 Lidocaine Patch 5% [Lidoderm Patch] 1 patch TOP DAILY PRN 04/11/20 04/18/20 Umeclidinium [place] [Incruse 1 puffs INH DAILY 04/11/20 04/18/20 Ellipta] levoFLOXacin [Levaquin] 750 mg PO DAILY #15 tablet 04/20/20 predniSONE [Prednisone] 50 mg PO DAILY #0 04/20/20 04/18/20 - Allergies Allergies/Adverse Reactions: Allergies Allergy/AdvReac Type Severity Reaction Status Date / Time aspirin Allergy Unknown Verified 06/25/20 15:43 ibuprofen AdvReac Respiratory Verified 06/25/20 15:43 pseudoephedrine AdvReac Unknown Verified 06/25/20 15:43 [From Entex T] - Social History Does the pt smoke?: No Smoking Status: Never smoker Does the pt drink ETOH?: No Does the pt have substance abuse?: Yes - Immunizations Immunizations are current?: Yes - POLST Patient has POLST: No POLST Status: Full Code PD ED PE NORMAL - Vitals Vital signs reviewed: Yes - General General: Alert and oriented X 3, No acute distress - HEENT HEENT: Moist mucous membranes - Neck Neck: Supple, no meningeal sign - Cardiac Cardiac: RRR - Respiratory Respiratory: No respiratory distress, Clear bilaterally - Back Back: No spinal TTP (No step-off or deformity. No tenderness to palpation or percussion) - Derm Derm: Warm and dry - Extremities Extremities: Other (Back pain reflexes) - Neuro Neuro: Alert and oriented X 3, No motor deficit, No sensory deficit Results - Vitals Vitals: Vital Signs - 24 hr 06/25/20 06/25/20 15:39 17:27 Temperature 37.1 C 37.2 C Heart Rate 134 H 116 H Respiratory 20 18 Rate Blood Pressure 136/82 H 137/92 H O2 Saturation 95 95 Oxygen O2 Source Room air PD MEDICAL DECISION MAKING - ED course Complexity details: considered differential (No cauda equina, no spinal epidural abscess, no fracture, no aortic dissection or evidence of aneursym rupture), d/w patient ED course: Patient with his usual chronic back pain. Given a dose of Toradol. Informed the patient that we would not use narcotics for his pain. He needs to follow-up with his doctor for his chronic pain issues. No acute issue at this time. Patient counseled regarding signs and symptoms for which I believe and urgent re-evaluation would be necessary. Patient with good understanding of and agreement to plan and is comfortable going home at this time This document was made in part using voice recognition software. While efforts are made to proofread this document, sound alike and grammatical errors may occur. Departure - Departure Disposition: 01 Home, Self Care Clinical Impression: Chronic back pain Qualifiers: Back pain location: low back pain Back pain laterality: right Sciatica presence: unspecified whether sciatica present Qualified Code(s): M54.5 - Low back pain Condition: Good Instructions: ED Chronic Pain Management, ED Neck Back Pain General Follow-Up: Delvin Zhao MD [Primary Care Provider] - 06/28/20 Comments: You were given an injection of Toradol today. Follow-up with your doctor on Sunday regarding your chronic pain management. Discharge Date/Time: 06/25/20 17:50
[2020-06-25 17:28] VITALS: BP 137/92
== END 2020-06-25 17:50 | disposition home or self-care (01) ==
LOC: ED 15:30
DX: M54.5 Low back pain (principal); G89.29 Other chronic pain; I10 Essential (primary) hypertension; E11.9 Type 2 diabetes mellitus without complications; Z79.84 Long term (current) use of oral hypoglycemic drugs
CPT/HCPCS: 96372; 99283; 99284

== ENCOUNTER 2020-07-12 16:16 | Outpatient (CLI) | payer OTHER | END 2020-07-12 16:17 | disposition home or self-care (01) | LOC: LAB 16:16 | PROVIDERS: ATTEND Ophthalmology | DX: Z01.812 Encounter for preprocedural laboratory examination (principal); H25.12 Age-related nuclear cataract, left eye; Z20.828 Contact with and (suspected) exposure to other viral communicable diseases ==

== ENCOUNTER 2020-07-22 17:51 | Emergency (ER) | payer OTHER ==
[2020-07-22] MEDS ORDERED: ONDANSETRON 4 MG/2 ML VIAL IVP STA (18:14)
[2020-07-22] MEDS ORDERED: SODIUM CHLORIDE 0.9% 1,000 ML IV ONE (18:14)
--- NOTE | 2020-07-22 18:15 | ED Physician Documentation ---
History of Present Illness - Stated complaint Stated Complaint: VOMITING - Chief complaint Chief Complaint: Abd Pain - History obtained from History obtained from: Patient - Additonal information Additional information: 55 yo M presented with sudden onset vomiting this afternoon after eating lunch. Denies fever, chills, cp, dyspnea, abd pain, diarrhea or constipation, or urinary sx. Feeling better now, hasn't vomited since he arrived and received zofran. Admits to marijuana use, denies other drug use, no new medications. Denies alcohol use. Review of Systems Constitutional: reports: Reviewed and negative Cardiac: reports: Reviewed and negative Respiratory: reports: Reviewed and negative GI: reports: Nausea, Vomiting. denies: Abdominal Pain, Abdominal Swelling, Constipation, Diarrhea, Hematemesis, Bloody / black stool : reports: Reviewed and negative Skin: reports: Reviewed and negative Musculoskeletal: reports: Reviewed and negative Neurologic: reports: Reviewed and negative Psychiatric: reports: Reviewed and negative PD PAST MEDICAL HISTORY - Past Medical History Cardiovascular: Hypertension Respiratory: Asthma, Sleep apnea, CPAP use Neuro: None Endocrine/Autoimmune: Type 2 diabetes GI: GERD : Kidney stones HEENT: None Psych: None Musculoskeletal: Chronic back pain Derm: None - Past Surgical History Past Surgical History: No General: Colonoscopy HEENT: Other - Present Medications Home Medications: Ambulatory Orders Medication Instructions Recorded Confirmed Acetaminophen [Tylenol] 650 mg PO Q4HR PRN 03/30/18 04/18/20 Albuterol Sulfate [Proair Hfa 1 - 2 puffs INH Q4H PRN 03/30/18 04/18/20 Inhaler] Beclomethasone 80 Mcg [Qvar 80] 2 puffs INH BID 03/30/18 04/18/20 Calcium Citrate 1,000 mg PO QPM 03/30/18 04/18/20 Cholecalciferol (Vitamin D3) 2,000 unit PO DAILY 03/30/18 04/18/20 [Vitamin D3] Fexofenadine HCl 90 mg PO DAILY 03/30/18 04/18/20 Omeprazole [PriLOSEC] 20 mg PO QDAC 03/30/18 04/18/20 Telmisartan [Micardis] 40 mg PO DAILY 03/30/18 04/18/20 guaiFENesin [Guaifenesin] 800 mg PO BID 11/05/19 04/18/20 metFORMIN [Glucophage] 500 mg PO DAILYWM 11/05/19 04/18/20 Albuterol 2.5 mg INH Q4H PRN 04/11/20 04/18/20 Duloxetine HCl 60 mg PO DAILY 04/11/20 04/18/20 Ipratropium/Albuterol [Combivent 1 puffs INH Q6H PRN 04/11/20 04/18/20 Respimat] Ipratropium/Albuterol [Duoneb] 3 ml INH Q6H PRN 04/11/20 04/18/20 Lidocaine Patch 5% [Lidoderm Patch] 1 patch TOP DAILY PRN 04/11/20 04/18/20 Umeclidinium [place] [Incruse 1 puffs INH DAILY 04/11/20 04/18/20 Ellipta] levoFLOXacin [Levaquin] 750 mg PO DAILY #15 tablet 04/20/20 predniSONE [Prednisone] 50 mg PO DAILY #0 04/20/20 04/18/20 Ondansetron Odt [Zofran] 4 mg TL Q6H PRN #10 tablet 07/22/20 Promethazine Supp [Phenergan Supp] 25 mg MS Q8H PRN #12 supp 07/22/20 - Allergies Allergies/Adverse Reactions: Allergies Allergy/AdvReac Type Severity Reaction Status Date / Time aspirin Allergy Unknown Verified 07/22/20 17:58 ibuprofen AdvReac Respiratory Verified 07/22/20 17:58 pseudoephedrine AdvReac Unknown Verified 07/22/20 17:58 [From Entex T] - Social History Does the pt smoke?: No Smoking Status: Never smoker Does the pt drink ETOH?: No Does the pt have substance abuse?: Yes - Immunizations Immunizations are current?: Yes - POLST Patient has POLST: No POLST Status: Full Code PD ED PE NORMAL - Vitals Vital signs reviewed: Yes - General General: Alert and oriented X 3, No acute distress, Well developed/nourished, Other (Pt sleeping when I first assessed him, later was wretching loudly. ) - HEENT HEENT: Atraumatic, Moist mucous membranes - Cardiac Cardiac: No murmur, No gallop, No rub, Strong equal pulses, Other (tachycardic) - Respiratory Respiratory: No respiratory distress, Clear bilaterally - Abdomen Abdomen: Normal bowel sounds, Soft, Non tender, Non distended - Derm Derm: Normal color, Warm and dry, No rash - Extremities Extremities: No deformity, No edema - Neuro Neuro: Alert and oriented X 3 Eye Opening: Spontaneous Motor: Obeys Commands Verbal: Oriented GCS Score: 15 - Psych Psych: Normal mood, Normal affect Results - Vitals Vitals: Vital Signs - 24 hr 07/22/20 07/22/20 07/22/20 17:58 19:00 19:35 Temperature 36.6 C Heart Rate 129 H 114 H 123 H Respiratory 16 16 22 Rate Blood Pressure 152/88 H 171/96 H 150/94 H O2 Saturation 98 97 100 07/22/20 07/22/20 07/22/20 20:15 20:30 20:36 Temperature Heart Rate 122 H 116 H 118 H Respiratory 19 24 20 Rate Blood Pressure 175/93 H 153/78 H 153/78 H O2 Saturation 97 100 100 Oxygen O2 Source Room air - EKG (time done) 16:36 Rate: Rate (enter#) (120), Tachy Rhythm: Sinus tachycardia [place]: Normal Intervals: Normal MS QRS: Normal Ischemia: Normal ST segments Computer interpretation: Agree with computer - Labs Labs: Laboratory Tests 07/22/20 07/22/20 07/22/20 18:09 18:09 18:19 WBC 9.1 RBC 4.45 L Hgb 12.2 L Hct 39.4 L MCV 88.5 MCH 27.4 MCHC 31.0 L RDW 15.5 H Plt Count 382 MPV 8.6 Neut # (Auto) 8.1 H Lymph # (Auto) 0.4 L [place] # (Auto) 0.5 Eos # (Auto) 0.0 Baso # (Auto) 0.0 Absolute Nucleated RBC 0.00 Nucleated RBC % 0.0 Sodium 138 Potassium 3.9 Chloride 102 Carbon Dioxide 18 L Anion Gap 18.0 H BUN 15 Creatinine 0.6 Estimated GFR (MDRD) 139 Glucose 129 H Calcium 9.4 Total Bilirubin 1.0 AST 17 ALT 15 Alkaline Phosphatase 69 Total Protein 7.3 Albumin 4.3 Globulin 3.0 Albumin/Globulin Ratio 1.4 Lipase 28 Urine Color YELLOW Urine Clarity CLEAR Urine pH 6.5 Ur Specific [place] 1.020 Urine Protein NEGATIVE Urine Glucose (UA) NEGATIVE Urine Ketones 15 H Urine Occult Blood SMALL H Urine Nitrite NEGATIVE Urine Bilirubin NEGATIVE Urine Urobilinogen 0.2 (NORMAL) Ur Leukocyte Esterase NEGATIVE Urine RBC 0-5 Urine WBC 0-3 Ur Squamous Epith Cells NONE SEEN Urine Bacteria Rare Urine Mucus Few Strands Ur Microscopic Review INDICATED Urine Culture Comments NOT INDICATED Urine Opiates Screen NEGATIVE Ur Oxycodone Screen POSITIVE H Urine Methadone Screen NEGATIVE Ur Propoxyphene Screen NEGATIVE Ur Barbiturates Screen NEGATIVE Ur Tricyclics Screen NEGATIVE Ur Phencyclidine Scrn NEGATIVE Ur Amphetamine Screen NEGATIVE U Methamphetamines Scrn NEGATIVE U Benzodiazepines Scrn NEGATIVE Urine Cocaine Screen NEGATIVE U Cannabinoids Screen POSITIVE H PD MEDICAL DECISION MAKING - ED course Complexity details: reviewed old records, reviewed results, re-evaluated patient, considered differential, d/w patient ED course: 55 yo M presented with nausea and vomiting that started suddenly this afternoon after eating. He had no associated abdominal pain or other symptoms and his labs and physical exam were reassuring making an acute surgical abdomen unlikely. He received zofran, phenergan, and finally haldol with improvement in his symptoms. He also received 1L NC. He does admit to marijuana and per chart review I suspect his sx are 2/2 to cannabis hyperemesis. Pt felt better after meds and was tolerating oral fluids and ambulating througout unit. Will discharge home w/ antiemetics through strongly urged to stop marijuana use. I discussed return precautions in detail w/ pt including abdominal pain, fever, unable to tolerate oral fluids, constipation or diarrhea, or otherwise worsening sx. Pt eager to go home upon discharge and states his HR is "always high" and he feels at baseline, therefore discharged home. Departure - Departure Disposition: 01 Home, Self Care Clinical Impression: Gastroenteritis Vomiting Qualifiers: Vomiting type: unspecified Vomiting Intractability: non-intractable Nausea presence: with nausea Qualified Code(s): R11.2 - Nausea with vomiting, unspecified Condition: Good Instructions: ED Gastroenteritis Viral, ED Nausea Vomiting Prescriptions: Promethazine Supp [Phenergan Supp] 25 mg MS Q8H PRN #12 supp PRN Reason: Nausea / Vomiting Ondansetron Odt [Zofran] 4 mg TL Q6H PRN #10 tablet PRN Reason: Nausea / Vomiting Comments: You presented with sudden nausea and vomiting this evening, though no abdominal pain. Your labs and exam are reassuring and your nausea/vomiting improved with anti-emetics. You also received 1L of IV fluid and tolerated oral fluids. I suspect this is a gastroenteritis related to something you ate, but may also be related to your marijuana use. Your abdomen is not tender and therefore we have low suspicion for an acute abdominal process. I have discharged you home with anti-emetics. Please refrain from marijuana use. If you have worsening symptoms such as abdominal pain, fever, are unable to keep any fluids down, please return to the ER.
[2020-07-22 18:20] LABS: BASOPHILS % (AUTO) 0.1 %; HGB - HEMOGLOBIN 12.2 g/dL (14.0-18.0); LYMPHOCYTES # (AUTO) 0.4 10^3/uL (1.5-3.5); LYMPHOCYTES % (AUTO) 4.7 %; MEAN CORPUSCULAR HEMOGLOBIN 27.4 pg (27.0-31.0); MEAN CORPUSCULAR VOLUME 88.5 fL (80.0-94.0); MEAN PLATELET VOLUME 8.6 fL (7.4-11.4); MONOCYTES # (AUTO) 0.5 10^3/uL (0.0-1.0); NEUTROPHILS # (AUTO) 8.1 10^3/uL (1.5-6.6); NEUTROPHILS % (AUTO) 88.9 %; PLT - PLATELET COUNT 382 10^3/uL (130-450); RED BLOOD COUNT 4.45 10^6/uL (4.70-6.10); RED CELL DISTRIBUTION WIDTH 15.5 % (12.0-15.0); WHITE BLOOD COUNT 9.1 x10^3/uL (4.8-10.8)
[2020-07-22 18:32] LABS: ALBUMIN 4.3 g/dL (3.2-5.5); ALBUMIN/GLOBULIN RATIO 1.4 (1.0-2.2); CALCIUM 9.4 mg/dL (8.5-10.3); CREATININE 0.6 mg/dL (0.6-1.2); TOTAL PROTEIN 7.3 g/dL (6.7-8.2)
[2020-07-22] MEDS ORDERED: PROMETHAZINE INJ 25 MG in SODIUM CHLORIDE 0.9% 50 ML IV STA (19:06)
[2020-07-22] MEDS ORDERED: PROMETHAZINE 25 MG/1 ML VIAL ONE (19:16)
[2020-07-22] MEDS ORDERED: MAG HYDROX/AL HYDROX/SIMETH 30 ML UDC PO STA (19:45)
[2020-07-22] MEDS ORDERED: HALOPERIDOL 5 MG/ML VIAL IM STA (19:45)
[2020-07-22 20:37] VITALS: BP 153/78
[2020-07-22 20:48] LABS: MUDS CUTOFF CONCENTRATIONS CUTOFF CONC BELOW:
[2020-07-22 20:52] LABS: BILIRUBIN,URINE NEGATIVE (NEGATIVE); GLUCOSE, URINE (UA) NEGATIVE (NEGATIVE); KETONES,URINE (UA) 15 mg/dL (NEGATIVE); LEUKOCYTE ESTERASE, URINE NEGATIVE (NEGATIVE); NITRITE,URINE NEGATIVE (NEGATIVE); OCCULT BLOOD,URINE SMALL (NEGATIVE); PH,URINE 6.5 PH (5.0-7.5); PROTEIN,URINE NEGATIVE (NEGATIVE); UROBILINOGEN,URINE 0.2 (NORMAL) E.U./dL (NORMAL)
[2020-07-22 20:53] LABS: CLARITY,URINE CLEAR (CLEAR)
[2020-07-22 20:56] LABS: BACTERIA,URINE Rare /HPF (None Seen); MUCUS,URINE Few Strands; RBC,URINE 0-5 /HPF (0-5); SQUAMOUS EPITHELIAL CELL,UR NONE SEEN (<= Few)
[2020-07-22 21:01] LABS: AMPHETAMINE SCREEN,URINE NEGATIVE (NEGATIVE); BENZODIAZEPINES SCREEN, URINE NEGATIVE (NEGATIVE); COCAINE SCREEN URINE NEGATIVE (NEGATIVE); METHADONE SCREEN, URINE NEGATIVE (NEGATIVE); METHAMPHETAMINES SCREEN, URINE NEGATIVE (NEGATIVE); OPIATE SCREEN, URINE NEGATIVE (NEGATIVE); OXYCODONE SCREEN, URINE POSITIVE (NEGATIVE); PROPOXYPHENE SCREEN, URINE NEGATIVE (NEGATIVE); TRICYCLIC ANTIDEPRESSANT,URINE NEGATIVE (NEGATIVE)
== END 2020-07-22 21:10 | disposition home or self-care (01) ==
LOC: ED 17:51
DX: K52.9 Noninfective gastroenteritis and colitis, unspecified (principal); R00.0 Tachycardia, unspecified; F12.90 Cannabis use, unspecified, uncomplicated; I10 Essential (primary) hypertension; E11.9 Type 2 diabetes mellitus without complications; Z79.84 Long term (current) use of oral hypoglycemic drugs
CPT/HCPCS: 36415; 80053; 80306; 81001; 83690; 85025; 93005; 96365; 96372; 96375; 99283; 99284; A9270; 81003; 87086

== ENCOUNTER 2020-09-02 15:34 | Outpatient (CLI) | payer OTHER ==
[2020-09-02 15:45] LABS: BASOPHILS % (AUTO) 0.1 %; HGB - HEMOGLOBIN 11.3 g/dL (14.0-18.0); LYMPHOCYTES # (AUTO) 0.8 10^3/uL (1.5-3.5); LYMPHOCYTES % (AUTO) 9.2 %; MEAN CORPUSCULAR HEMOGLOBIN 27.6 pg (27.0-31.0); MEAN CORPUSCULAR HGB CONC 30.5 g/dL (32.0-36.0); MEAN CORPUSCULAR VOLUME 90.5 fL (80.0-94.0); MEAN PLATELET VOLUME 8.5 fL (7.4-11.4); MONOCYTES # (AUTO) 0.7 10^3/uL (0.0-1.0); MONOCYTES % (AUTO) 7.9 %; NEUTROPHILS # (AUTO) 7.1 10^3/uL (1.5-6.6); NEUTROPHILS % (AUTO) 82.1 %; PLT - PLATELET COUNT 413 10^3/uL (130-450); RED BLOOD COUNT 4.09 10^6/uL (4.70-6.10); RED CELL DISTRIBUTION WIDTH 15.3 % (12.0-15.0); WHITE BLOOD COUNT 8.7 x10^3/uL (4.8-10.8)
[2020-09-02 16:03] LABS: CALCIUM 9.2 mg/dL (8.5-10.3); CREATININE 0.8 mg/dL (0.6-1.2); CRP - C-REACTIVE PROTEIN 1.1 mg/dL (0-1.0)
[2020-09-02 20:08] LABS: HEMOGLOBIN A1c% 6.2 % (4.27-6.07)
== END 2020-09-02 15:35 | disposition home or self-care (01) ==
LOC: LAB 15:34
PROVIDERS: ATTEND Orthopaedic Surgery Adult Reconstructive Orthopaedic Surgery
DX: Z01.818 Encounter for other preprocedural examination (principal); Z01.812 Encounter for preprocedural laboratory examination; R73.9 Hyperglycemia, unspecified; R00.0 Tachycardia, unspecified
CPT/HCPCS: 36415; 80048; 83036; 85025; 85651; 86140; 93005

== ENCOUNTER 2021-02-23 17:37 | Emergency (ER) | payer OTHER ==
--- OUTSIDE RECORDS SUMMARY | 2021-02-23 17:41 | EXTERNAL MEDICAL SUMMARY RPT | Continuity of Care Document ---
:1965 Demographics Phone Unavailable Preferred Language Kittitian Marital Status Unknown Shinto Affiliation Unknown Race Unknown Ethnic Group Unknown Author Organization [place] Address [address] [phone] Phone Care Team Providers Name Role Phone Virginie Unavailable Unavailable Miscellaneous Unavailable Unavailable Clerc Unavailable Unavailable Problems date description facility [id number] Encounter for preprocedural laboratory examination [facility] [id number] Contact with and (suspected) exposure t o COVID-[address] [place] [address] [id number] Acute bronchitis, unspecified [facility] [id number] 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 [facility] [id number] Obstructive sleep apnea (adult) (pediat [facility]) [facility] [id number] Other spondylosis with radiculopathy, c ervical region [facility] [id number] Spinal stenosis, cervical region [facility] [id number] Unspecified asthma with (acute) exacerb [facility] [id number] Unspecified asthma, uncomplicated [facility] Medications date description facility 20201130 Docusate Sodium 100 MG Oral Capsule [facility] 20201130 Hydromorphone Hydrochloride 2 MG Oral T [facility] Procedures date description facility [id number] [facility] date description facility [id number] [facility] date description facility [id number] [facility] date description facility 20201127 [facility] date description facility [id number] [facility] Vital Signs date measurement value source [id number] height_metric 182.88 cm [id number] height_standard 72 in [id number] weight_metric 86.5 kg [id number] weight_standard 190.7 lb date measurement value source 20201130 BP_diastolic 83 mm[Hg] 75707630 BP_systolic 172 mm[Hg] 91920028 heart_rate 100 /min 41631057 respiration_rate 18 /min 81009892 temperature_metric 37.39 C [id number] temperature_standard 99.3 F Social History date description facility [id number]
--- NOTE | 2021-02-23 18:27 | XRAY Report ---
PROCEDURE: Chest 2 View X-Ray INDICATIONS: dyspnea TECHNIQUE: 2 view(s) of the chest. COMPARISON: Chest x-ray 02/15/2021 FINDINGS: Surgical changes and devices: Cervical fixation plate is present. Lungs and pleura: No pleural effusions or pneumothorax. Lungs are clear. Mediastinum: Mediastinal contours are normal. Heart size is normal. Bones and chest wall: No suspicious bony abnormalities. Soft tissues appear unremarkable. IMPRESSION: No acute pulmonary process. Reviewed by: Kisha Pride MD on 02/23/2021 5:25 PM [facility] Approved by: Kisha Pride MD on 02/23/2021 5:25 PM AKDT Station ID: [id number]
--- OUTSIDE RECORDS SUMMARY | 2021-02-23 18:39 | EXTERNAL MEDICAL SUMMARY RPT | Continuity of Care Document ---
:1965 Demographics Phone Unavailable Preferred Language Guyanese Marital Status Unknown Judaism Affiliation Unknown Race Unknown Ethnic Group Unknown Author Organization [place] Address [address] [phone] Phone Care Team Providers Name Role Phone Clerc Unavailable Unavailable Virginie Unavailable Unavailable Miscellaneous Unavailable Unavailable Problems date description facility [id number] Encounter for preprocedural laboratory examination [facility] [id number] Contact with and (suspected) exposure t o COVID-[address] [place] [address] 20201129 Acute bronchitis, unspecified [facility] [id number] 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 [facility] [id number] Obstructive sleep apnea (adult) (pediat [facility]) [facility] [id number] Other spondylosis with radiculopathy, c ervical region [facility] [id number] Spinal stenosis, cervical region [facility] [id number] Unspecified asthma with (acute) exacerb [facility] [id number] Unspecified asthma, uncomplicated [facility] Medications date description facility 20201130 Docusate Sodium 100 MG Oral Capsule [facility] 20201130 Hydromorphone Hydrochloride 2 MG Oral T [facility] Procedures date description facility 20201126 [facility] date description facility 20201126 [facility] date description facility 20201127 [facility] date description facility 20201127 [facility] date description facility [id number] [facility] Vital Signs date measurement value source [id number] height_metric 182.88 cm 53654920 height_standard 72 in 38308026 weight_metric 86.5 kg 08665775 weight_standard 190.7 lb date measurement value source [id number] BP_diastolic 83 mm[Hg] 20210609 BP_systolic 172 mm[Hg] 63884036 heart_rate 100 /min 14689802 respiration_rate 18 /min 13016159 temperature_metric 37.39 C 59725546 temperature_standard 99.3 F Social History date description facility [id number]+0000
--- NOTE | 2021-02-23 19:41 | ED Physician Documentation ---
History of Present Illness - Stated complaint Stated Complaint: FOGGY - Chief complaint Chief Complaint: General - Additonal information Additional information: 55-year-old male is advised to come to the emergency department for evaluation of feeling generally foggy and unwell. He has a history of persistent poorly controlled asthma not amenable to treatment with the long-acting inhaled steroids. He is attended by a lending activities supervisor through [facility]. At baseline he is typically on 40 mg of prednisone daily but over the last month he has had to increase the dose to nearly 60 mg daily. Gentleman denies any fevers, vomiting abdominal pain. No dysuria urgency or frequency. He feels that the increase prednisone is affecting his ability to sleep. No worsening cough. He does feel that his asthma is a little worse than normal with diffuse expiratory wheezing. Review of Systems Constitutional: denies: Fever, Chills Eyes: reports: Loss of vision Ears: reports: Reviewed and negative Nose: reports: Reviewed and negative Throat: reports: Reviewed and negative Cardiac: denies: Chest pain / pressure, Palpitations, Pedal edema, Calf pain Respiratory: reports: Dyspnea, Wheezing. denies: Cough GI: reports: Reviewed and negative : reports: Reviewed and negative Skin: reports: Reviewed and negative Musculoskeletal: reports: Reviewed and negative Neurologic: reports: Reviewed and negative PD PAST MEDICAL HISTORY - Past Medical History Cardiovascular: Hypertension Respiratory: Asthma, Sleep apnea, CPAP use Neuro: None Endocrine/Autoimmune: Type 2 diabetes GI: GERD : Kidney stones HEENT: None Psych: None Musculoskeletal: Chronic back pain Derm: None - Past Surgical History Past Surgical History: No General: Colonoscopy HEENT: Other - Present Medications Home Medications: Ambulatory Orders Medication Instructions Recorded Confirmed Acetaminophen [Tylenol] 650 mg PO Q4HR PRN 03/30/18 04/18/20 Albuterol Sulfate [Proair Hfa 1 - 2 puffs INH Q4H PRN 03/30/18 04/18/20 Inhaler] Beclomethasone 80 Mcg [Qvar 80] 2 puffs INH BID 03/30/18 04/18/20 Calcium Citrate 1,000 mg PO QPM 03/30/18 04/18/20 Cholecalciferol (Vitamin D3) 2,000 unit PO DAILY 03/30/18 04/18/20 [Vitamin D3] Fexofenadine HCl 90 mg PO DAILY 03/30/18 04/18/20 Omeprazole [PriLOSEC] 20 mg PO QDAC 03/30/18 04/18/20 Telmisartan [Micardis] 40 mg PO DAILY 03/30/18 04/18/20 guaiFENesin [Guaifenesin] 800 mg PO BID 11/05/19 04/18/20 metFORMIN [Glucophage] 500 mg PO DAILYWM 11/05/19 04/18/20 Albuterol 2.5 mg INH Q4H PRN 04/11/20 04/18/20 Duloxetine HCl 60 mg PO DAILY 04/11/20 04/18/20 Ipratropium/Albuterol [Combivent 1 puffs INH Q6H PRN 04/11/20 04/18/20 Respimat] Ipratropium/Albuterol [Duoneb] 3 ml INH Q6H PRN 04/11/20 04/18/20 Lidocaine Patch 5% [Lidoderm Patch] 1 patch TOP DAILY PRN 04/11/20 04/18/20 Umeclidinium [place] [Incruse 1 puffs INH DAILY 04/11/20 04/18/20 Ellipta] levoFLOXacin [Levaquin] 750 mg PO DAILY #15 tablet 04/20/20 predniSONE [Prednisone] 50 mg PO DAILY #0 04/20/20 04/18/20 Ondansetron Odt [Zofran] 4 mg TL Q6H PRN #10 tablet 07/22/20 Promethazine Supp [Phenergan Supp] [address] Q8H PRN #12 supp 07/22/20 - Allergies Allergies/Adverse Reactions: Allergies Allergy/AdvReac Type Severity Reaction Status Date / Time aspirin Allergy Unknown Verified 02/23/21 18:04 ibuprofen AdvReac Respiratory Verified 02/23/21 18:04 pseudoephedrine AdvReac Unknown Verified 02/23/21 18:04 [From Entex T] - Social History Does the pt smoke?: No Smoking Status: Never smoker Does the pt drink ETOH?: No Does the pt have substance abuse?: Yes - Immunizations Immunizations are current?: Yes - POLST Patient has POLST: No POLST Status: Full Code PD ED PE EXPANDED - General General: Alert, No acute distress, Well developed/nourished - Cardiac Cardiac: Regular Rate, Radial strong equal, Cap refill < 2 sec, Prolonged cap refill. No: Murmur Present - Respiratory Respiratory: Wheezing (Scattered wheezing the right upper lobe is otherwise generally clear without rhonchi or crackles. No tachypnea. Room air sats of 98%.). No: Distress, Labored - Abdomen Abdomen: Normal Bowel sounds. No: Tender to palpation - Derm Derm: Normal color, Warm and dry. No: Pale, Rash - Neuro Neuro: Alert and Oriented X 3, CNII-XII intact, Normal gait, Normal finger nose, Normal speech - GCS Eye Opening: Spontaneous Motor: Obeys Commands Verbal: Oriented Total: 15 Results - Vitals Vitals: Vital Signs - 24 hr 02/23/21 17:58 Temperature 36.8 C Heart Rate 104 H Respiratory 18 Rate Blood Pressure 148/84 H O2 Saturation 98 Oxygen O2 Source Room air - Labs Labs: Laboratory Tests 02/23/21 02/23/21 19:40 19:40 WBC 9.5 RBC 4.21 L Hgb 10.4 L Hct 35.4 L MCV 84.1 MCH 24.7 L MCHC 29.4 L RDW 17.5 H Plt Count 339 MPV 8.3 Neut # (Auto) 7.6 H Lymph # (Auto) 0.8 L [place] # (Auto) 0.9 Eos # (Auto) 0.0 Baso # (Auto) 0.0 Absolute Nucleated RBC 0.03 Nucleated RBC % 0.3 Sodium 141 Potassium 3.9 Chloride 102 Carbon Dioxide 28 Anion Gap 11.0 BUN 22 H Creatinine 0.8 Estimated GFR (MDRD) 100 Glucose 157 H Calcium 9.0 Total Bilirubin 0.8 AST 20 ALT 30 Alkaline Phosphatase 46 Total Protein 6.5 L Albumin 3.7 Globulin 2.8 Albumin/Globulin Ratio 1.3 Lipase 30 - Rads (name of study) CXR Radiology: Final report received (No acute cardiopulmonary process.) PD MEDICAL DECISION MAKING - ED course Complexity details: reviewed results, re-evaluated patient, d/w patient ED course: 55-year-old male presents the emergency department for evaluation of feeling foggy and with increasing wheeze after his prednisone was recently increased. He has a longstanding history of poorly controlled asthma. He is typically on 40 mg of prednisone daily but has had to increase his doses recently up to 60 mg. He feels that the spring pollens are affecting his breathing. He is on 2 antihistamines as well as nasal rinses. He has not had any cough or fevers. Screening x-ray does not show a pneumonia. We did do screening labs. He does have a mild anemia but it is unchanged from baseline. No significant leukocytosis considering his high dose of steroids. Screening electrolytes are without any worrisome findings. We discussed that large doses of steroids over a long period of time but should be adjusted very cautiously and not discontinued or changed abruptly. It is often common to have fogginess insomnia with chronic steroid use. He is advised to continue to follow-up with his lending activities supervisor for which she is scheduled to see on Sunday this upcoming week. Departure - Departure Disposition: Home, Self Care Clinical Impression: Chronic steroid use Condition: Stable Record reviewed to determine appropriate education?: Yes Comments: Manjit you were seen in the emergency department today for feeling foggy and out of sorts. As we discussed your labs do show a mild anemia but it is unchanged from baseline. Your electrolytes are also essentially normal. You do not have any pneumonia. Your chest Xray is normal for age Please continue to discuss this ED visit with your lending activities supervisor. Return to the emergency department if you have sudden shortness of breath, feel that you are having an asthma attack cannot breathe or have chest pain.
[2021-02-23 19:52] LABS: BASOPHILS % (AUTO) 0.2 %; HCT - HEMATOCRIT 35.4 % (42.0-52.0); HGB - HEMOGLOBIN 10.4 g/dL (14.0-18.0); LYMPHOCYTES # (AUTO) 0.8 10^3/uL (1.5-3.5); LYMPHOCYTES % (AUTO) 8.7 %; MEAN CORPUSCULAR HEMOGLOBIN 24.7 pg (27.0-31.0); MEAN CORPUSCULAR HGB CONC 29.4 g/dL (32.0-36.0); MEAN CORPUSCULAR VOLUME 84.1 fL (80.0-94.0); MEAN PLATELET VOLUME 8.3 fL (7.4-11.4); MONOCYTES # (AUTO) 0.9 10^3/uL (0.0-1.0); MONOCYTES % (AUTO) 9.4 %; NEUTROPHILS # (AUTO) 7.6 10^3/uL (1.5-6.6); NEUTROPHILS % (AUTO) 79.9 %; NRBC ABSOLUTE COUNT (AUTO) 0.03 x10^3/uL; NUCLEATED RED BLOOD CELLS AUTO 0.3 /100WBC; PLT - PLATELET COUNT 339 10^3/uL (130-450); RED BLOOD COUNT 4.21 10^6/uL (4.70-6.10); RED CELL DISTRIBUTION WIDTH 17.5 % (12.0-15.0); WHITE BLOOD COUNT 9.5 x10^3/uL (4.8-10.8)
[2021-02-23 20:06] LABS: ALBUMIN 3.7 g/dL (3.2-5.5); ALBUMIN/GLOBULIN RATIO 1.3 (1.0-2.2); BILIRUBIN,TOTAL 0.8 mg/dL (0.2-1.0); CREATININE 0.8 mg/dL (0.6-1.2); POTASSIUM 3.9 mmol/L (3.5-5.0); TOTAL PROTEIN 6.5 g/dL (6.7-8.2)
[2021-02-23 21:05] VITALS: BP 138/84
== END 2021-02-23 20:56 | disposition home or self-care (01) ==
LOC: ED 17:37
DX: R41.89 Other symptoms and signs involving cognitive functions and awareness (principal); G47.00 Insomnia, unspecified; T38.0X5A Adverse effect of glucocorticoids and synthetic analogues, initial encounter; Z79.52 Long term (current) use of systemic steroids; J45.909 Unspecified asthma, uncomplicated; D64.9 Anemia, unspecified; Z20.822 Contact with and (suspected) exposure to COVID-19; I10 Essential (primary) hypertension; E11.9 Type 2 diabetes mellitus without complications; Z79.84 Long term (current) use of oral hypoglycemic drugs
CPT/HCPCS: 36415; 80053; 83690; 85025; 99282; 99284

== ENCOUNTER 2021-04-13 13:34 | Emergency (ER) | payer OTHER ==
--- NOTE | 2021-04-13 14:07 | ED Physician Documentation ---
History of Present Illness - Stated complaint Stated Complaint: B LE swelling, increased HR - Chief complaint Chief Complaint: Cardiac - History obtained from History obtained from: Patient - History of Present Illness Pain level max: 4 Pain level now: 1 - Additonal information Additional information: Patient is a 55-year-old male with a history of chronic prednisone use for refractory asthma. Has been on continuous steroids for the past 4 years. Has noticed increased swelling to the bilateral lower extremities over the past week or 2. Nothing seems to make it better or worse. He states that he saw his doctor today and she started him on Lasix. Sent him here for further evaluation. No difficulty breathing. No hypoxia. No abdominal pain. No swelling. He states he does have a sore left lower back from a fall about 2 weeks ago. No numbness or tingling. No loss of bowel or bladder control. No fevers. No chills. No chest pain. Patient states he has chronic tachycardia. States his normal heart rate is 120- 130. Review of Systems Ten Systems: 10 systems reviewed and negative Constitutional: denies: Fever, Chills Ears: denies: Drainage/discharge Nose: denies: Rhinorrhea / runny nose, Congestion Throat: denies: Sore throat Respiratory: denies: Cough GI: denies: Nausea, Vomiting, Diarrhea : denies: Dysuria, Frequency, Hesitancy Skin: denies: Rash Musculoskeletal: denies: Neck pain, Back pain Neurologic: denies: Headache PD PAST MEDICAL HISTORY - Past Medical History Past Medical History: Yes Cardiovascular: Hypertension Respiratory: Asthma, Sleep apnea, CPAP use Neuro: None Endocrine/Autoimmune: Type 2 diabetes GI: GERD : Kidney stones HEENT: None Psych: None Musculoskeletal: Chronic back pain Derm: None - Past Surgical History Past Surgical History: No General: Colonoscopy HEENT: Other - Present Medications Home Medications: Ambulatory Orders Medication Instructions Recorded Confirmed Acetaminophen [Tylenol] 650 mg PO Q4HR PRN 03/30/18 04/18/20 Albuterol Sulfate [Proair Hfa 1 - 2 puffs INH Q4H PRN 03/30/18 04/18/20 Inhaler] Beclomethasone 80 Mcg [Qvar 80] 2 puffs INH BID 03/30/18 04/18/20 Calcium Citrate 1,000 mg PO QPM 03/30/18 04/18/20 Cholecalciferol (Vitamin D3) 2,000 unit PO DAILY 03/30/18 04/18/20 [Vitamin D3] Fexofenadine HCl 90 mg PO DAILY 03/30/18 04/18/20 Omeprazole [PriLOSEC] 20 mg PO QDAC 03/30/18 04/18/20 Telmisartan [Micardis] 40 mg PO DAILY 03/30/18 04/18/20 guaiFENesin [Guaifenesin] 800 mg PO BID 11/05/19 04/18/20 metFORMIN [Glucophage] 500 mg PO DAILYWM 11/05/19 04/18/20 Albuterol 2.5 mg INH Q4H PRN 04/11/20 04/18/20 Duloxetine HCl 60 mg PO DAILY 04/11/20 04/18/20 Ipratropium/Albuterol [Combivent 1 puffs INH Q6H PRN 04/11/20 04/18/20 Respimat] Ipratropium/Albuterol [Duoneb] 3 ml INH Q6H PRN 04/11/20 04/18/20 Lidocaine Patch 5% [Lidoderm Patch] 1 patch TOP DAILY PRN 04/11/20 04/18/20 Umeclidinium [place] [Incruse 1 puffs INH DAILY 04/11/20 04/18/20 Ellipta] levoFLOXacin [Levaquin] 750 mg PO DAILY #15 tablet 04/20/20 predniSONE [Prednisone] 50 mg PO DAILY #0 04/20/20 04/18/20 Ondansetron Odt [Zofran] 4 mg TL Q6H PRN #10 tablet 07/22/20 Promethazine Supp [Phenergan Supp] 25 mg NE Q8H PRN #12 supp 07/22/20 - Allergies Allergies/Adverse Reactions: Allergies Allergy/AdvReac Type Severity Reaction Status Date / Time aspirin Allergy Unknown Verified 04/13/21 13:49 ibuprofen AdvReac Respiratory Verified 04/13/21 13:49 pseudoephedrine AdvReac Unknown Verified 04/13/21 13:49 [From Entex T] - Social History Does the pt smoke?: No Smoking Status: Never smoker Does the pt drink ETOH?: No Does the pt have substance abuse?: Yes - Immunizations Immunizations are current?: Yes - POLST Patient has POLST: No POLST Status: Full Code PD ED PE NORMAL - Vitals Vital signs reviewed: Yes - General General: Alert and oriented X 3, No acute distress, Well developed/nourished - HEENT HEENT: PERRL, Moist mucous membranes - Neck Neck: Supple, no meningeal sign - Cardiac Cardiac: RRR, Strong equal pulses - Respiratory Respiratory: No respiratory distress, Other (mild wheeze B) - Abdomen Abdomen: Soft, Non tender, Non distended - Back Back: Other (mild TTP low lumbar, no stepoff or deformity. NVI. no spasm. ) - Derm Derm: Warm and dry - Extremities Extremities: Other (2+ BLE pitting edema. no erythema. NVI. no calf tenderness. corn on the plantar aspect of L foot) - Neuro Neuro: Alert and oriented X 3, Other (Normal bilateral lower extremity patellar and ankle jerk reflexes. Normal great toe extension bilaterally. no saddle anesthesia) - Psych Psych: Normal mood, Normal affect Results - Vitals Vitals: Vital Signs - 24 hr 04/13/21 04/13/21 04/13/21 13:45 14:04 14:30 Temperature 36.2 C L 36.7 C Heart Rate 134 H 126 H 124 H Respiratory 20 14 14 Rate Blood Pressure 150/77 H 164/94 H 136/75 H O2 Saturation 98 97 96 Oxygen O2 Source Room air - EKG (time done) 1351 Rate: Rate (enter#) (128) Rhythm: Sinus tachycardia [place]: Normal Intervals: Normal NE QRS: Normal Ischemia: Normal ST segments - Labs Labs: Laboratory Tests 04/13/21 04/13/21 04/13/21 14:07 14:07 14:07 WBC 13.5 H RBC 3.70 L Hgb 9.4 L Hct 32.1 L MCV 86.8 MCH 25.4 L MCHC 29.3 L RDW 17.4 H Plt Count 408 MPV 8.3 Neut # (Auto) 12.2 H Lymph # (Auto) 0.3 L Blount # (Auto) 0.7 Eos # (Auto) 0.0 Baso # (Auto) 0.0 Absolute Nucleated RBC 0.08 Nucleated RBC % 0.6 Sodium 138 Potassium 4.1 Chloride 97 L Carbon Dioxide 27 Anion Gap 14.0 H BUN 17 Creatinine 0.8 Estimated GFR (MDRD) 100 Glucose 181 H Calcium 8.9 Total Bilirubin 0.7 AST 21 ALT 26 Alkaline Phosphatase 59 B-Natriuretic Peptide 32 Total Protein 6.7 Albumin 3.8 Globulin 2.9 Albumin/Globulin Ratio 1.3 Lipase 23 - Rads (name of study) cxr Radiology: Prelim report reviewed, EMP read contemporaneously, See rad report L spine xray Radiology: Prelim report reviewed, EMP read contemporaneously, See rad report PD MEDICAL DECISION MAKING - ED course Complexity details: reviewed old records, reviewed results, re-evaluated patient, considered differential, d/w patient ED course: No acute findings on chest x-ray or lumbar spine x-ray. No significant lab abnormalities. Patient has chronic tachycardia. BNP is normal. Had a normal echocardiogram a year ago. Physical exam is not consistent with a DVT at this time. We will hold off on duplex ultrasound of the lower extremities. He was started on a diuretic today by his doctor, presumably Lasix. We will have him start this and see how he progresses. Patient is well-appearing, nontoxic. Afebrile. Patient counseled regarding signs and symptoms for which I believe and urgent re-evaluation would be necessary. Patient with good understanding of and agreement to plan and is comfortable going home at this time This document was made in part using voice recognition software. While efforts are made to proofread this document, sound alike and grammatical errors may occur. Departure - Departure Disposition: 01 Home, Self Care Clinical Impression: Peripheral edema Condition: Good Instructions: ED Edema Legs Bilateral Follow-Up: SHANTANU ALEXIS MD [Primary Care Provider] - Within 1 week Comments: Your testing today does not show any evidence of heart failure. Please follow- up with your doctor for further care. Return if you worsen. Start the medication that she prescribed you today. Discharge Date/Time: 04/13/21 15:06
[2021-04-13 14:11] LABS: BASOPHILS % (AUTO) 0.1 %; HCT - HEMATOCRIT 32.1 % (42.0-52.0); HGB - HEMOGLOBIN 9.4 g/dL (14.0-18.0); LYMPHOCYTES # (AUTO) 0.3 10^3/uL (1.5-3.5); LYMPHOCYTES % (AUTO) 1.9 %; MEAN CORPUSCULAR HEMOGLOBIN 25.4 pg (27.0-31.0); MEAN CORPUSCULAR HGB CONC 29.3 g/dL (32.0-36.0); MEAN CORPUSCULAR VOLUME 86.8 fL (80.0-94.0); MEAN PLATELET VOLUME 8.3 fL (7.4-11.4); MONOCYTES # (AUTO) 0.7 10^3/uL (0.0-1.0); MONOCYTES % (AUTO) 5.1 %; NEUTROPHILS # (AUTO) 12.2 10^3/uL (1.5-6.6); NEUTROPHILS % (AUTO) 90.3 %; NRBC ABSOLUTE COUNT (AUTO) 0.08 x10^3/uL; NUCLEATED RED BLOOD CELLS AUTO 0.6 /100WBC; PLT - PLATELET COUNT 408 10^3/uL (130-450); RED CELL DISTRIBUTION WIDTH 17.4 % (12.0-15.0); WHITE BLOOD COUNT 13.5 x10^3/uL (4.8-10.8)
[2021-04-13 14:27] LABS: ALBUMIN 3.8 g/dL (3.2-5.5); ALBUMIN/GLOBULIN RATIO 1.3 (1.0-2.2); BILIRUBIN,TOTAL 0.7 mg/dL (0.2-1.0); CALCIUM 8.9 mg/dL (8.5-10.3); CREATININE 0.8 mg/dL (0.6-1.2); POTASSIUM 4.1 mmol/L (3.5-5.0); TOTAL PROTEIN 6.7 g/dL (6.7-8.2)
--- NOTE | 2021-04-13 14:42 | XRAY Report ---
PROCEDURE: Chest 2 View X-Ray INDICATIONS: peripheral edema TECHNIQUE: 2 view(s) of the chest. COMPARISON: None. FINDINGS: Surgical changes and devices: Cervical fixation plate is present. Lungs and pleura: No pleural effusions or pneumothorax. Mild appearance of increased vascularity.. Mediastinum: Mediastinal contours are normal. Heart size is normal. Bones and chest wall: No suspicious bony abnormalities. Soft tissues appear unremarkable. IMPRESSION: Mild appearance of increased vascular suggestive of edema. Reviewed by: Kisha Pride MD on 04/13/2021 2:41 PM PDT Approved by: Kisha Pride MD on 04/13/2021 2:41 PM PDT Station ID: [id number]
--- NOTE | 2021-04-13 14:42 | XRAY Report ---
PROCEDURE: Lumbar Spine 2 View INDICATIONS: fall, back pain TECHNIQUE: 2 views of the lumbar spine were acquired. COMPARISON: Lumbar spine x-ray 08/10/2019 FINDINGS: Bones: 5 [id number] vertebrae are present. There is normal bony alignment. No suspicious [place] lesions. Moderate disc and foraminal narrowing is noted at L5-S1, overall mild degenerative disc space narrowing is present within the remainder of the lumbar spine. Loss of height is noted within t he visualized lower thoracic vertebral bodies. Soft tissues: Overlying bowel gas pattern is normal. No suspicious soft tissue calcifications. IMPRESSION: 1. Degenerative changes most notable at L5-S1. 2. Visualized height loss within the lower thoracic vertebral bodies unchanged since 08/10/2019. Reviewed by: Kisha Pride MD on 04/13/2021 2:40 PM PDT Approved by: Kisah Pride MD on 04/13/2021 2:40 PM PDT Station ID: [id number]
[2021-04-13 15:02] VITALS: BP 136/75
== END 2021-04-13 15:06 | disposition home or self-care (01) ==
LOC: ED 13:34
DX: E11.42 Type 2 diabetes mellitus with diabetic polyneuropathy (principal); Z79.84 Long term (current) use of oral hypoglycemic drugs; I10 Essential (primary) hypertension; R00.0 Tachycardia, unspecified
CPT/HCPCS: 36415; 80053; 83690; 83880; 85025; 93005; 99284

== ENCOUNTER 2021-05-07 15:35 | Emergency (ER) | payer OTHER ==
[2021-05-07] MEDS ORDERED: KETOROLAC 15 MG/ML VIAL IM STA (15:59)
--- NOTE | 2021-05-07 16:02 | ED Physician Documentation ---
PD HPI BACK PAIN - Stated complaint Stated Complaint: BACK PAIN - Chief complaint Chief Complaint: Back Pain - History obtained from History obtained from: Patient - Additional information Additional information: 55-year-old gentleman with chronic back pain presents with an exacerbation of same for about a week to a week and a half. His usual back pain is more midline and right, this is more midline than left. There is no significant injury, but he does note that it may have started while lifting a wheelbarrow a few weeks ago. Radiates down the leg on the left but there is no associated saddle anesthesia, incontinence, or fevers. He is already on oxycodone and OxyContin for chronic pain management for his back. He is noted to be tachycardic but a review of the chart shows that his heart rate is at baseline in the 120s. He has severe asthma maintained on prednisone but does not feel like his asthma is any worse than normal. Review of Systems Constitutional: reports: Reviewed and negative Eyes: reports: Reviewed and negative Ears: reports: Reviewed and negative Nose: reports: Reviewed and negative PD PAST MEDICAL HISTORY - Past Medical History Cardiovascular: Hypertension Respiratory: Asthma, Sleep apnea, CPAP use Neuro: None Endocrine/Autoimmune: Type 2 diabetes GI: GERD : Kidney stones HEENT: None Psych: None Musculoskeletal: Chronic back pain Derm: None - Past Surgical History Past Surgical History: No General: Colonoscopy HEENT: Other - Present Medications Home Medications: Ambulatory Orders Medication Instructions Recorded Confirmed Acetaminophen [Tylenol] 650 mg PO Q4HR PRN 03/30/18 05/07/21 Albuterol Sulfate [Proair Hfa 1 - 2 puffs INH Q4H PRN 03/30/18 05/07/21 Inhaler] Beclomethasone 80 Mcg [Qvar 80] 2 puffs INH BID 03/30/18 05/07/21 Calcium Citrate 1,000 mg PO QPM 03/30/18 05/07/21 Cholecalciferol (Vitamin D3) 2,000 unit PO DAILY 03/30/18 05/07/21 [Vitamin D3] Fexofenadine HCl 90 mg PO DAILY 03/30/18 05/07/21 Omeprazole [PriLOSEC] 20 mg PO QDAC 03/30/18 05/07/21 Telmisartan [Micardis] 40 mg PO DAILY 03/30/18 05/07/21 guaiFENesin [Guaifenesin] 800 mg PO BID 11/05/19 05/07/21 metFORMIN [Glucophage] 500 mg PO DAILYWM 11/05/19 05/07/21 Albuterol 2.5 mg INH Q4H PRN 04/11/20 05/07/21 Ipratropium/Albuterol [Combivent 1 puffs INH Q6H PRN 04/11/20 05/07/21 Respimat] Ipratropium/Albuterol [Duoneb] 3 ml INH Q6H PRN 04/11/20 05/07/21 Lidocaine Patch 5% [Lidoderm Patch] 1 patch TOP DAILY PRN 04/11/20 05/07/21 Umeclidinium [place] [Incruse 1 puffs INH DAILY 04/11/20 05/07/21 Ellipta] predniSONE [Prednisone] 50 mg PO DAILY #0 04/20/20 05/07/21 Amoxicillin Chew [Amoxicillin] 125 mg PO 05/07/21 Fluticasone [Flonase] 1 spray [place] DAILY PM 05/07/21 05/07/21 Gabapentin [Neurontin] 300 mg PO DAILY 05/07/21 05/07/21 Meloxicam [Mobic] 7.5 mg PO BID PRN #10 tablet 05/07/21 Oxycodone HCl/Acetaminophen 1 tab PO Q6HR PRN 05/07/21 05/07/21 [Percocet 10-325 mg Tablet] - Allergies Allergies/Adverse Reactions: Allergies Allergy/AdvReac Type Severity Reaction Status Date / Time aspirin Allergy Unknown Verified 05/07/21 15:45 cyclobenzaprine AdvReac Hallucinati Verified 05/07/21 15:47 [From Flexeril] ons ibuprofen AdvReac Respiratory Verified 05/07/21 15:45 pseudoephedrine AdvReac Unknown Verified 05/07/21 15:45 [From Entex T] - Social History Does the pt smoke?: No Smoking Status: Never smoker Does the pt drink ETOH?: No Does the pt have substance abuse?: Yes - Immunizations Immunizations are current?: Yes - POLST Patient has POLST: No POLST Status: Full Code PD ED PE NORMAL - Vitals Vital signs reviewed: Yes - General General: Alert and oriented X 3, No acute distress - Back Back: Other (No midline spinal tenderness nor muscular tenderness of the back. No shingles rash.) - Extremities Extremities: Other (The patient has equal and normal Achilles and patellar reflexes bilaterally. Normal sensation in all areas of the legs. Patient denies saddle anesthesia. Normal strength in flexion-extension at the ankles, knees, and flexion of the hips.) - Neuro Neuro: Alert and oriented X 3, Normal speech Results - Vitals Vitals: Vital Signs - 24 hr 05/07/21 15:40 Temperature 36.3 C L Heart Rate 124 H Respiratory 20 Rate Blood Pressure 174/119 H O2 Saturation 98 Oxygen O2 Source Room air PD MEDICAL DECISION MAKING - ED course ED course: 55-year-old gentleman with chronic back pain with an exacerbation of same. No red flags other than chronic steroid use, but the pain is more to the left of the midline so doubt pathologic fracture. He has a history of overdoses, medication misuse, and ICU admissions for encephalopathy related to polypharmacy so I am hesitant to give him anything that would be a [employer] depressant. Departure - Departure Disposition: 01 Home, Self Care Clinical Impression: Chronic back pain Qualifiers: Back pain location: low back pain Back pain laterality: left Sciatica presence: without sciatica Qualified Code(s): M54.5 - Low back pain; G89.29 - Other chronic pain Condition: Good Record reviewed to determine appropriate education?: Yes Instructions: ED Neck Back Pain General Prescriptions: Meloxicam [Mobic] 7.5 mg PO BID PRN #10 tablet PRN Reason: Pain Comments: Call your doctor to arrange a follow-up appointment, make the next available appointment. In the interim, return anytime if worse or if new symptoms develop.
[2021-05-07 16:24] VITALS: BP 158/96
== END 2021-05-07 16:24 | disposition home or self-care (01) ==
LOC: ED 15:35
DX: M54.5 Low back pain (principal); G89.29 Other chronic pain; J45.909 Unspecified asthma, uncomplicated; Z79.52 Long term (current) use of systemic steroids; I10 Essential (primary) hypertension; E11.9 Type 2 diabetes mellitus without complications; Z79.84 Long term (current) use of oral hypoglycemic drugs
CPT/HCPCS: 96372; 99283

== ENCOUNTER 2021-05-25 16:04 | Outpatient (CLI) | payer OTHER | END 2021-05-25 16:05 | disposition critical access hospital (66) | LOC: EMS 16:04 | DX: R06.00 Dyspnea, unspecified (principal) | CPT/HCPCS: A0425; A0427 ==

== ENCOUNTER 2021-05-25 16:14 | Emergency (ER) | payer OTHER ==
[2021-05-25] MEDS ORDERED: LORazepam 2 MG/ML VIAL IVP STA (16:38)
--- NOTE | 2021-05-25 16:51 | ED Physician Documentation ---
History of Present Illness - Stated complaint Stated Complaint: ANXIETY ATTACK - Chief complaint Chief Complaint: General - History obtained from History obtained from: Patient, Family, EMS - History of Present Illness Timing: Today Pain level max: 0 Pain level now: 0 - Additonal information Additional information: 55-year-old male presents to the emergency department stating that he had a sudden onset of shortness of breath today. Improved with a breathing treatment. Feels like he was having a panic attack. Has been under increasing stress lately. His recently told him she wanted a divorce. No fevers. No chills. Nothing makes it worse. Currently feeling better. Review of Systems Ten Systems: 10 systems reviewed and negative Constitutional: denies: Fever, Chills Ears: denies: Ear pain Nose: denies: Rhinorrhea / runny nose, Congestion Cardiac: denies: Chest pain / pressure, Palpitations Respiratory: denies: Cough, Hemoptysis GI: denies: Abdominal Pain, Nausea, Vomiting, Diarrhea Musculoskeletal: denies: Neck pain, Back pain Neurologic: denies: Headache PD PAST MEDICAL HISTORY - Past Medical History Cardiovascular: Hypertension Respiratory: Asthma, Sleep apnea, CPAP use Neuro: None Endocrine/Autoimmune: Type 2 diabetes GI: GERD : Kidney stones HEENT: None Psych: None Musculoskeletal: Chronic back pain Derm: None - Past Surgical History Past Surgical History: No General: Colonoscopy HEENT: Other - Present Medications Home Medications: Ambulatory Orders Medication Instructions Recorded Confirmed Acetaminophen [Tylenol] 650 mg PO Q4HR PRN 03/30/18 05/07/21 Albuterol Sulfate [Proair Hfa 1 - 2 puffs INH Q4H PRN 03/30/18 05/07/21 Inhaler] guaiFENesin [Guaifenesin] 800 mg PO BID 11/05/19 05/07/21 metFORMIN [Glucophage] 500 mg PO DAILYWM 11/05/19 05/07/21 Umeclidinium [place] [Incruse 1 puffs INH DAILY 04/11/20 05/07/21 Ellipta] Amoxicillin Chew [Amoxicillin] 125 mg PO 05/07/21 Fluticasone [Flonase] 1 spray [place] DAILY PM 05/07/21 05/07/21 Gabapentin [Neurontin] 300 mg PO DAILY 05/07/21 05/07/21 Meloxicam [Mobic] 7.5 mg PO BID PRN #10 tablet 05/07/21 Oxycodone HCl/Acetaminophen 1 tab PO Q6HR PRN 05/07/21 05/07/21 [Percocet 10-325 mg Tablet] Furosemide [Lasix] 20 mg DAILY 05/25/21 05/25/21 Montelukast [Singulair] 10 mg DAILY 05/25/21 05/25/21 fentaNYL [Duragesic] 50 mcg TD 05/25/21 predniSONE [Prednisone] 0 mg PO DAILY 05/25/21 - Allergies Allergies/Adverse Reactions: Allergies Allergy/AdvReac Type Severity Reaction Status Date / Time aspirin Allergy Unknown Verified 05/25/21 16:28 cyclobenzaprine AdvReac Hallucinati Verified 05/25/21 16:28 [From Flexeril] ons ibuprofen AdvReac Respiratory Verified 05/25/21 16:28 pseudoephedrine AdvReac Unknown Verified 05/25/21 16:28 [From Entex T] - Social History Does the pt smoke?: No Smoking Status: Never smoker Does the pt drink ETOH?: No Does the pt have substance abuse?: Yes - Immunizations Immunizations are current?: Yes - POLST Patient has POLST: No POLST Status: Full Code PD ED PE NORMAL - Vitals Vital signs reviewed: Yes - General General: Alert and oriented X 3, No acute distress, Well developed/nourished - HEENT HEENT: PERRL, Moist mucous membranes - Neck Neck: Supple, no meningeal sign - Cardiac Cardiac: RRR, Strong equal pulses - Respiratory Respiratory: No respiratory distress, Clear bilaterally - Abdomen Abdomen: Soft, Non tender, Non distended - Derm Derm: Warm and dry - Extremities Extremities: No edema, No calf tenderness / cord - Neuro Neuro: Alert and oriented X 3 - Psych Psych: Normal mood, Normal affect Results - Vitals Vitals: Vital Signs - 24 hr 05/25/21 05/25/21 05/25/21 16:15 17:00 17:30 Temperature 37 C Heart Rate 134 H 130 H 110 H Respiratory 24 25 H 22 Rate Blood Pressure 140/71 H 128/73 147/87 H O2 Saturation 94 94 94 05/25/21 18:00 Temperature Heart Rate 96 Respiratory 20 Rate Blood Pressure 131/79 H O2 Saturation 93 Oxygen O2 Source Room air PD MEDICAL DECISION MAKING - ED course Complexity details: reviewed old records, reviewed results, re-evaluated patient, considered differential, d/w patient ED course: Symptoms resolved with Ativan. Patient feels much better. Lungs are clear to auscultation bilaterally. Does not appear consistent with an asthma exacerbation at this time. Likely panic attack. We will have him follow-up with his doctor for further care. No evidence of PE, aortic dissection or acute coronary syndrome. Patient counseled regarding signs and symptoms for which I believe and urgent re-evaluation would be necessary. Patient with good understanding of and agreement to plan and is comfortable going home at this time This document was made in part using voice recognition software. While efforts are made to proofread this document, sound alike and grammatical errors may o ccur. Departure - Departure Disposition: 01 Home, Self Care Clinical Impression: Anxiety Condition: Good Instructions: ED Panic Attack Follow-Up: SHANTANU ALEXIS MD [Primary Care Provider] - Within 1 week Comments: Go home and rest tonight. Follow-up with your doctor to discuss anxiety medication. Discharge Date/Time: 05/25/21 18:25
[2021-05-25 18:28] VITALS: BP 131/79
== END 2021-05-25 18:25 | disposition home or self-care (01) ==
LOC: EDUNIT# → ED 16:14
DX: F41.9 Anxiety disorder, unspecified (principal)
CPT/HCPCS: 96374; 99283; 99284; J2060

== ENCOUNTER 2021-05-27 21:07 | Emergency (ER) | payer OTHER ==
[2021-05-27] MEDS ORDERED: CEPHALEXIN 250 MG Prepack 8 CAP BOTTLE PO STA (22:23)
--- NOTE | 2021-05-27 22:25 | ED Physician Documentation ---
PD HPI UPPER EXT INJURY - Stated complaint Stated Complaint: L LEG WOUND - Chief complaint Chief Complaint: Wound - History obtained from History obtained from: Patient - Additonal information Additional information: 55-year-old gentleman on chronic steroids has about a 3-week history of 3 nonhealing ulcers on the left leg. He thinks they were from minor trauma. Review of Systems Constitutional: denies: Fever, Chills Throat: reports: Reviewed and negative Cardiac: reports: Reviewed and negative PD PAST MEDICAL HISTORY - Past Medical History Past Medical History: Yes Cardiovascular: Hypertension Respiratory: Asthma, Sleep apnea, CPAP use Neuro: None Endocrine/Autoimmune: Type 2 diabetes GI: GERD : Kidney stones HEENT: None Psych: None Musculoskeletal: Chronic back pain Derm: None - Past Surgical History Past Surgical History: No General: Colonoscopy HEENT: Other - Present Medications Home Medications: Ambulatory Orders Medication Instructions Recorded Confirmed Acetaminophen [Tylenol] 650 mg PO Q4HR PRN 03/30/18 05/07/21 Albuterol Sulfate [Proair Hfa 1 - 2 puffs INH Q4H PRN 03/30/18 05/07/21 Inhaler] guaiFENesin [Guaifenesin] 800 mg PO BID 11/05/19 05/07/21 metFORMIN [Glucophage] 500 mg PO DAILYWM 11/05/19 05/07/21 Umeclidinium [place] [Incruse 1 puffs INH DAILY 04/11/20 05/07/21 Ellipta] Amoxicillin Chew [Amoxicillin] 125 mg PO 05/07/21 Fluticasone [Flonase] 1 spray [place] DAILY PM 05/07/21 05/07/21 Gabapentin [Neurontin] 300 mg PO DAILY 05/07/21 05/07/21 Meloxicam [Mobic] 7.5 mg PO BID PRN #10 tablet 05/07/21 Oxycodone HCl/Acetaminophen 1 tab PO Q6HR PRN 05/07/21 05/07/21 [Percocet 10-325 mg Tablet] Furosemide [Lasix] 20 mg DAILY 05/25/21 05/25/21 Montelukast [Singulair] 10 mg DAILY 05/25/21 05/25/21 fentaNYL [Duragesic] 50 mcg TD 05/25/21 predniSONE [Prednisone] 0 mg PO DAILY 05/25/21 Manuka Honey 10 ml TD DAILY #300 ml 05/27/21 cephALEXin [Keflex] 500 mg PO Q6H #28 cap 05/27/21 - Allergies Allergies/Adverse Reactions: Allergies Allergy/AdvReac Type Severity Reaction Status Date / Time aspirin Allergy Unknown Verified 05/27/21 21:14 cyclobenzaprine AdvReac Hallucinati Verified 05/27/21 21:14 [From Flexeril] ons ibuprofen AdvReac Respiratory Verified 05/27/21 21:14 pseudoephedrine AdvReac Unknown Verified 05/27/21 21:14 [From Entex T] - Social History Does the pt smoke?: No Smoking Status: Never smoker Does the pt drink ETOH?: No Does the pt have substance abuse?: Yes - Immunizations Immunizations are current?: Yes - POLST Patient has POLST: No POLST Status: Full Code PD ED PE NORMAL - Vitals Vital signs reviewed: Yes - General General: Alert and oriented X 3, No acute distress - HEENT HEENT: PERRL, EOMI - Extremities Extremities: Other (3 nickel sized ulcers on the anteromedial left calf with granulation at the base and mild surrounding cellulitis. A culture was taken during exam.) - Neuro Neuro: Alert and oriented X 3, Normal speech Results - Vitals Vitals: Vital Signs - 24 hr 05/27/21 21:10 Temperature 36.9 C Heart Rate 133 H Respiratory 20 Rate Blood Pressure 170/110 H O2 Saturation 94 Oxygen O2 Source Room air PD MEDICAL DECISION MAKING - ED course Complexity details: reviewed old records (His heart rate is always around 130) Departure - Departure Disposition: 01 Home, Self Care Clinical Impression: Chronic steroid use Infected ulcer of skin Qualifiers: Non-pressure ulcer stage: with fat layer exposed Qualified Code(s): L98.492 - Non-pressure chronic ulcer of skin of other sites with fat layer exposed; L08.9 - Local infection of the skin and subcutaneous tissue, unspecified Condition: Good Record reviewed to determine appropriate education?: Yes Instructions: ED Pressure Injury Prescriptions: cephALEXin [Keflex] 500 mg PO Q6H #28 cap Manuka Honey 10 ml TD DAILY #300 ml Comments: Seen today for 3 ulcers that appear mildly infected on the left leg. A wound culture is pending and if a change in antibiotics is necessary based on that we will call you in a few days. In the meantime, you should do home wound care. You can wash briefly with soap and water in the shower. Then use the manuka honey and then a nonstick dressing such as Telfa pad and a wrap over that. Do that at least once a day. If not healing quickly, talk with your doctor about a referral to a formal wound care program, there is one at this hospital but she will need orders from her.
[2021-05-27 22:40] VITALS: BP 155/100
== END 2021-05-27 22:40 | disposition home or self-care (01) ==
LOC: ED 21:07
DX: L08.9 Local infection of the skin and subcutaneous tissue, unspecified (principal); E11.622 Type 2 diabetes mellitus with other skin ulcer; L97.222 Non-pressure chronic ulcer of left calf with fat layer exposed; I10 Essential (primary) hypertension; Z79.52 Long term (current) use of systemic steroids; Z79.84 Long term (current) use of oral hypoglycemic drugs
CPT/HCPCS: 87070; 87077; 87181; 87205; 99283

== ENCOUNTER 2021-05-30 14:56 | Emergency (ER) | payer OTHER ==
--- NOTE | 2021-05-30 16:19 | ED Physician Documentation ---
PD HPI DYSPNEA - Stated complaint Stated Complaint: DIFFICULTY BREATHING - Chief complaint Chief Complaint: Resp - History obtained from History obtained from: Patient - Additional information Additional information: 55-year-old gentleman with chronic longstanding severe asthma uses CPAP machine last night for the first time in weeks. He thinks he did not clean it well and now feels more short of breath than normal with a cough productive of clear sputum. No fevers. He is on Keflex currently for wound infection of the left leg which is improving. He started the Keflex just a couple of days ago, wound culture reviewed Klebsiella sensitive to cephalosporins and E. coli sensitive to cephalosporins. He is on 45 mg of prednisone a day chronically. Review of Systems Constitutional: reports: Reviewed and negative Eyes: reports: Reviewed and negative Ears: reports: Reviewed and negative Nose: reports: Reviewed and negative PD PAST MEDICAL HISTORY - Past Medical History Cardiovascular: Hypertension Respiratory: Asthma, Sleep apnea, CPAP use Neuro: None Endocrine/Autoimmune: Type 2 diabetes GI: GERD : Kidney stones HEENT: None Psych: None Musculoskeletal: Chronic back pain Derm: None - Past Surgical History Past Surgical History: No General: Colonoscopy HEENT: Other - Present Medications Home Medications: Ambulatory Orders Medication Instructions Recorded Confirmed Acetaminophen [Tylenol] 650 mg PO Q4HR PRN 03/30/18 05/07/21 Albuterol Sulfate [Proair Hfa 1 - 2 puffs INH Q4H PRN 03/30/18 05/07/21 Inhaler] guaiFENesin [Guaifenesin] 800 mg PO BID 11/05/19 05/07/21 metFORMIN [Glucophage] 500 mg PO DAILYWM 11/05/19 05/07/21 Umeclidinium [place] [Incruse 1 puffs INH DAILY 04/11/20 05/07/21 Ellipta] Amoxicillin Chew [Amoxicillin] 125 mg PO 05/07/21 Fluticasone [Flonase] 1 spray MONICA DAILY PM 05/07/21 05/07/21 Gabapentin [Neurontin] 300 mg PO DAILY 05/07/21 05/07/21 Meloxicam [Mobic] 7.5 mg PO BID PRN #10 tablet 05/07/21 Oxycodone HCl/Acetaminophen 1 tab PO Q6HR PRN 05/07/21 05/07/21 [Percocet 10-325 mg Tablet] Furosemide [Lasix] 20 mg DAILY 05/25/21 05/25/21 Montelukast [Singulair] 10 mg DAILY 05/25/21 05/25/21 fentaNYL [Duragesic] 50 mcg TD 05/25/21 predniSONE [Prednisone] 0 mg PO DAILY 05/25/21 [place] Honey 10 ml TD DAILY #300 ml 05/27/21 cephALEXin [Keflex] 500 mg PO Q6H #28 cap 05/27/21 - Allergies Allergies/Adverse Reactions: Allergies Allergy/AdvReac Type Severity Reaction Status Date / Time aspirin Allergy Unknown Verified 05/30/21 15:01 cyclobenzaprine AdvReac Hallucinati Verified 05/30/21 15:01 [From Flexeril] ons ibuprofen AdvReac Respiratory Verified 05/30/21 15:01 pseudoephedrine AdvReac Unknown Verified 05/30/21 15:01 [From Entex T] - Social History Does the pt smoke?: No Smoking Status: Never smoker Does the pt drink ETOH?: No Does the pt have substance abuse?: Yes - Immunizations Immunizations are current?: Yes - POLST Patient has POLST: No POLST Status: Full Code PD ED PE NORMAL - Vitals Vital signs reviewed: Yes - General General: Alert and oriented X 3, No acute distress - HEENT HEENT: PERRL, EOMI - Neck Neck: Supple, no meningeal sign, No bony TTP - Cardiac Cardiac: Other (Rapid and regular. Note that his heart rate is always around 130 looking at prior charts.) - Respiratory Respiratory: Other (Diminished at the right base, no wheezes) - Abdomen Abdomen: Non tender - Extremities Extremities: No edema - Neuro Neuro: Alert and oriented X 3, Normal speech Results - Vitals Vitals: Vital Signs - 24 hr 05/30/21 15:01 Temperature 36.5 C Heart Rate 130 H Respiratory 24 Rate Blood Pressure 146/81 H O2 Saturation 96 Oxygen O2 Source Room air PD MEDICAL DECISION MAKING - ED course ED course: 55-year-old gentleman with chronic severe asthma feels bad after using his CPAP last night, it was the first night in a few nights. There is no evidence of infection. Chest x-ray is relatively clear. Departure - Departure Disposition: Home, Self Care Clinical Impression: Dyspnea Qualifiers: Dyspnea type: unspecified Qualified Code(s): R06.00 - Dyspnea, unspecified Condition: Good Record reviewed to determine appropriate education?: Yes Instructions: ED Reactive Airway Disease Comments: I would take a couple days off of your CPAP and try it again midweek or over the weekend. Return for new or worsening symptoms. Continue current medications.
--- NOTE | 2021-05-30 16:43 | XRAY Report ---
PROCEDURE: Chest 2 View X-Ray INDICATIONS: sob TECHNIQUE: 2 view(s) of the chest. COMPARISON: None. FINDINGS: Surgical changes and devices: None. Lungs and pleura: No pleural effusions or pneumothorax. Lungs are clear. Mediastinum: Mediastinal contours are normal. Heart size is normal. Bones and chest wall: No suspicious bony abnormalities. Soft tissues appear unremarkable. What gema ears to be old right sided rib fractures are noted with focal pleural thickening as a result. IMPRESSION: Mild interstitial prominence, perhaps reflecting prior smoking history but there is no s ign of acute CHF or cardiomegaly, or pneumonia. Old left-sided rib fractures incidentally noted., A d efinite source of current symptoms is not seen. Reviewed by: Teto Decker MD on 05/30/2021 4:41 PM PDT Approved by: Teto Decker MD on 05/30/2021 4:41 PM PDT Station ID: [id number]
[2021-05-30 17:07] VITALS: BP 133/82
== END 2021-05-30 17:07 | disposition home or self-care (01) ==
LOC: ED 14:56
DX: R06.00 Dyspnea, unspecified (principal); J45.909 Unspecified asthma, uncomplicated
CPT/HCPCS: 99283; 99284

== ENCOUNTER 2021-06-06 10:56 | Outpatient (CLI) | payer OTHER ==
--- NOTE | 2021-06-06 12:39 | SLEEP CARE CONSULTATION ---
Information from patient questionnaire entered by Ananya Hinojosa. I have reviewed and concur with the information entered by Ananya Hinojosa. This document represents the service I personally performed and the decisions made by me, Taylor Tirado MD, [facility]. History of Present Illness Service Date and Time: 06/06/2021 1056 Previous diagnosis: Moderate, Obstructive Sleep Apnea-Hypopnea Syndrome AHI: 28.3 (in 2018) Reason for follow up: annual (last seen 12/2018) Equipment type: CPAP Equipment obtained from: [employer] (no longer giving supplies, so [employer]) Mask style: Full face Mask brand: Resmed (AirFit) Prior sleep studies: Yes Year and Where: 2018 - [facility] HPI additional information: HPI: Mr. Montaño was diagnosed to have moderate obstructive sleep apnea-hypopnea syndrome and returns today for follow up of CPAP therapy. The patient purchased the device from [employer] but is getting supplies from [employer]. He wears a full face mask. He uses the device nightly and all through the night. The compliance report shows that he uses the device 50 nights out of the past 60 nights, averaging 2.2 hours a night. He says that he is getting a divorce and is sleeping in the basement where it is difficult to use his CPAP. He complains of no coughing and choking when using his CPAP. He thinks that the pressure of 10 - 12 cmH2O is comfortable. When he first used the CPAP, he did sleep and feel better. Sheridan Sleepiness Scale score is 14. The average residual AHI is 15.4; and average time in large leak per day is 4 minutes a night. The 90th percentile pressure is 12 cmH2O. 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 Obstructive Sleep Apnea-Hypopnea Syndrome, moderate, with the patient not using his [employer]ics DreamStation AutoCPAP much. He actually felt sick on it. I informed him of the recall and advised him to not use his CPAP until it can be replaced by [employer]. I instructed him to register it online to get replacement. PLAN: 1. Discontinue using CPAP for now. 2. [place] his CPAP online at [email or web address]. 3. Return for a follow up after he gets a new machine. 4. Try to lose weight. Counseling Topics: Weight control Visit Type: In Office Time Spent with Patient (minutes): 15 Provider Statement: I spent 100% of the Face to Face Visit with the patient with greater than 50% spent counseling the patient and coordination of care.
== END 2021-06-06 10:57 | disposition home or self-care (01) ==
LOC: SC 10:56
PROVIDERS: ATTEND Internal Medicine Pulmonary Disease
DX: G47.33 Obstructive sleep apnea (adult) (pediatric) (principal); E66.9 Obesity, unspecified; Z68.34 Body mass index [BMI] 34.0-34.9, adult
CPT/HCPCS: 99212

== ENCOUNTER 2021-07-01 16:35 | Outpatient (CLI) | payer OTHER | END 2021-07-01 16:36 | disposition home or self-care (01) | LOC: COV 16:35 | PROVIDERS: ATTEND Family Medicine | DX: Z20.822 Contact with and (suspected) exposure to COVID-19 (principal) ==

== ENCOUNTER 2021-07-23 02:26 | Outpatient (CLI) | payer OTHER | END 2021-07-23 02:27 | disposition short-term general hospital (02) | LOC: EMS 02:26 | DX: J45.909 Unspecified asthma, uncomplicated (principal) | CPT/HCPCS: A0425; A0427 ==

== ENCOUNTER 2021-08-04 22:27 | Outpatient (CLI) | payer OTHER | END 2021-08-04 22:28 | disposition short-term general hospital (02) | LOC: EMS 22:27 | DX: R40.4 Transient alteration of awareness (principal) | CPT/HCPCS: A0425; A0433 ==

== ENCOUNTER 2023-09-20 22:27 | Outpatient (CLI) | payer MEDICARE, OTHER | END 2023-09-20 22:28 | disposition short-term general hospital (02) | LOC: EMS 22:27 | DX: R06.02 Shortness of breath (principal); R06.2 Wheezing | CPT/HCPCS: A0425; A0427 ==

== ENCOUNTER 2023-10-03 16:09 | Outpatient (CLI) | payer MEDICARE, OTHER ==
--- NOTE | 2023-10-03 19:30 | XRAY Report ---
PROCEDURE: Chest 2 View X-Ray INDICATIONS: COUGH TECHNIQUE: 2 views of the chest were acquired. COMPARISON: Chest radiograph on May 30, 2021. FINDINGS: Surgical changes and devices: Right upper extremity PICC terminates at the cavoatrial junction. Lungs and pleura: No pleural effusions or pneumothorax. Bilateral perihilar bronchial wall thickenin g. No focal pulmonary consolidation. Subtle bilateral diffuse interstitial prominence. Mediastinum: Mediastinal contours appear normal. Heart size is normal. Aortic arch is calcified, di ctating atherosclerosis. Bones and chest wall: No suspicious bony lesions. Overlying soft tissues appear unremarkable. Par pricilallhaider visualized cervical spine hardware. Multilevel degenerative changes of the spine. Remote left- sided rib fractures. IMPRESSION: 1.Bilateral perihilar bronchial wall thickening suggestive of reactive airways disease and/or viral p neumonia. 2.Subtle bilateral diffuse interstitial prominence may reflect early pulmonary edema. Reviewed by: Nenita Garcia MD on 10/03/2023 7:28 PM PST Approved by: Nenita Garcia MD on 10/03/2023 7:28 PM PST Station ID: [id number]
== END 2023-10-03 16:10 | disposition home or self-care (01) ==
LOC: DI 16:09
PROVIDERS: ATTEND Student in an Organized Health Care Education/Training Program
DX: R05.9 Cough, unspecified (principal); J98.09 Other diseases of bronchus, not elsewhere classified

== ENCOUNTER 2023-10-23 12:55 | Outpatient (CLI) | payer MEDICARE, OTHER ==
--- NOTE | 2023-10-23 15:46 | XRAY Report ---
PROCEDURE: Calcaneus 2+V RT INDICATIONS: FOOT ULCER TECHNIQUE: Two views of the calcaneus were acquired. COMPARISON: None. FINDINGS: Bones: No fractures or dislocations. No suspicious bony lesions. No osseous erosions or periosteal reaction. Soft tissues: No suspicious calcifications. Achilles tendon appears normal. No soft tissue gas. Swe lling and small defect noted in the plantar soft tissues deep to the calcaneus compatible with soft t issue wound/ulcer. IMPRESSION: No steph evidence of osteomyelitis. Please note plain-film radiographs can be insensitive to changes of osteomyelitis in the initial 15 days of the disease. If there is continued clinical concern for os teomyelitis, consider three-phase nuclear medicine bone scan or MRI for additional evaluation. Reviewed by: Niki Alberts MD, PhD on 10/23/2023 3:45 PM PST Approved by: Niki Alberts MD, PhD on 10/23/2023 3:45 PM PST Station ID: [id number]
--- NOTE | 2023-10-23 15:49 | XRAY Report ---
PROCEDURE: Foot 3+V BL INDICATIONS: FOOT ULCER TECHNIQUE: 3 views of the right foot and left foot were acquired. COMPARISON: None. FINDINGS: Bones: No fractures or dislocations. No suspicious bony lesions. Prior left foot second transmetata rsal fracture. No osseous erosions or periosteal reaction in the right or left feet. Soft tissues: No suspicious soft tissue calcifications or masses. No soft tissue gas. Swelling and s mall defect noted in the plantar soft tissues of the right foot deep to the right calcaneus compatibl e with soft tissue wound/ulceration. IMPRESSION: No steph evidence of osteomyelitis. Please note plain-film radiographs can be insensitive to changes of osteomyelitis in the initial 15 days of the disease. If there is continued clinical concern for os teomyelitis, consider three-phase nuclear medicine bone scan or MRI for additional evaluation. Reviewed by: Niki Alberts MD, PhD on 10/23/2023 3:47 PM PST Approved by: Niki Alberts MD, PhD on 10/23/2023 3:47 PM PST Station ID: [id number]
== END 2023-10-23 12:56 | disposition home or self-care (01) ==
LOC: DI 12:55
PROVIDERS: ATTEND Family Medicine
DX: E09.621 Drug or chemical induced diabetes mellitus with foot ulcer (principal); L97.516 Non-pressure chronic ulcer of other part of right foot with bone involvement without evidence of necrosis; L97.412 Non-pressure chronic ulcer of right heel and midfoot with fat layer exposed; L08.9 Local infection of the skin and subcutaneous tissue, unspecified

== ENCOUNTER 2023-12-11 11:15 | Outpatient (CLI) | payer MEDICARE, OTHER ==
[2023-12-11 11:24] LABS: BASOPHILS % (AUTO) 0.2 %; HCT - HEMATOCRIT 40.2 % (42.0-52.0); HGB - HEMOGLOBIN 12.6 g/dL (14.0-18.0); LYMPHOCYTES # (AUTO) 0.2 10^3/uL (1.5-3.5); LYMPHOCYTES % (AUTO) 1.7 %; MEAN CORPUSCULAR HEMOGLOBIN 28.3 pg (27.0-31.0); MEAN CORPUSCULAR HGB CONC 31.3 g/dL (32.0-36.0); MEAN CORPUSCULAR VOLUME 90.3 fL (80.0-94.0); MEAN PLATELET VOLUME 9.3 fL (7.4-11.4); MONOCYTES # (AUTO) 0.5 10^3/uL (0.0-1.0); MONOCYTES % (AUTO) 3.9 %; NEUTROPHILS # (AUTO) 12.2 10^3/uL (1.5-6.6); NEUTROPHILS % (AUTO) 93.1 %; PLT - PLATELET COUNT 329 10^3/uL (130-450); RED BLOOD COUNT 4.45 10^6/uL (4.70-6.10); RED CELL DISTRIBUTION WIDTH 14.6 % (12.0-15.0); WHITE BLOOD COUNT 13.2 x10^3/uL (4.8-10.8)
[2023-12-11 11:47] LABS: ALBUMIN/GLOBULIN RATIO 1.3 (1.0-2.2); BILIRUBIN,TOTAL 0.5 mg/dL (0.2-1.0); CALCIUM 10.3 mg/dL (8.5-10.3); CREATININE 1.2 mg/dL (0.6-1.3); POTASSIUM 2.6 mmol/L (3.5-4.5)
== END 2023-12-11 11:16 | disposition home or self-care (01) ==
LOC: LAB.R 11:15
PROVIDERS: ATTEND Registered Nurse
DX: E11.42 Type 2 diabetes mellitus with diabetic polyneuropathy (principal); I50.22 Chronic systolic (congestive) heart failure
CPT/HCPCS: 80053; 85025

== ENCOUNTER 2023-12-12 08:00 | Outpatient (CLI) | payer MEDICARE, OTHER ==
[2023-12-12 22:54] LABS: BASOPHILS % (AUTO) 0.2 %; HCT - HEMATOCRIT 37.3 % (42.0-52.0); HGB - HEMOGLOBIN 11.6 g/dL (14.0-18.0); LYMPHOCYTES # (AUTO) 0.2 10^3/uL (1.5-3.5); LYMPHOCYTES % (AUTO) 1.4 %; MEAN CORPUSCULAR HEMOGLOBIN 28.2 pg (27.0-31.0); MEAN CORPUSCULAR HGB CONC 31.1 g/dL (32.0-36.0); MEAN CORPUSCULAR VOLUME 90.5 fL (80.0-94.0); MEAN PLATELET VOLUME 9.6 fL (7.4-11.4); MONOCYTES # (AUTO) 0.4 10^3/uL (0.0-1.0); MONOCYTES % (AUTO) 3.1 %; NEUTROPHILS # (AUTO) 11.2 10^3/uL (1.5-6.6); NEUTROPHILS % (AUTO) 94.6 %; PLT - PLATELET COUNT 328 10^3/uL (130-450); RED BLOOD COUNT 4.12 10^6/uL (4.70-6.10); RED CELL DISTRIBUTION WIDTH 14.5 % (12.0-15.0); WHITE BLOOD COUNT 11.8 x10^3/uL (4.8-10.8)
[2023-12-12 23:11] LABS: ALBUMIN 3.8 g/dL (3.2-5.5); ALBUMIN/GLOBULIN RATIO 1.4 (1.0-2.2); BILIRUBIN,TOTAL 0.4 mg/dL (0.2-1.0); CALCIUM 9.3 mg/dL (8.5-10.3); CREATININE 1.6 mg/dL (0.6-1.3); POTASSIUM 3.2 mmol/L (3.5-4.5); TOTAL PROTEIN 6.5 g/dL (6.4-8.9)
== END 2023-12-12 23:59 | disposition home or self-care (01) ==
LOC: LAB.R 08:00
DX: L03.115 Cellulitis of right lower limb (principal)
CPT/HCPCS: 80053; 85025; 85651; 86140

== ENCOUNTER 2023-12-19 11:11 | Outpatient (CLI) | payer MEDICARE, OTHER | END 2023-12-19 11:12 | disposition critical access hospital (66) | LOC: EMS 11:11 | DX: R06.02 Shortness of breath (principal); Z99.81 Dependence on supplemental oxygen; J45.909 Unspecified asthma, uncomplicated | CPT/HCPCS: A0425; A0429 ==

== ENCOUNTER 2023-12-19 11:19 | Inpatient (IN) | payer MEDICARE, OTHER ==
--- NOTE | 2023-12-19 11:59 | ED Physician Documentation ---
PD HPI DYSPNEA - Stated complaint Stated Complaint: SOA - Chief complaint Chief Complaint: Resp - Additional information Additional information: 58-year-old male with history of hypertension, asthma, COPD, type 2 diabetes, GERD, kidney stones presents emergency department for increased shortness of breath and racing heart rate. In triage note it is noted that patient is currently at [facility] for rehabilitation although patient tells myself that he is living at home alone with his son and woke up this morning with increased racing heart rate and shortness of breath with ongoing fatigue. Patient is seen frequently falling asleep throughout interview he is having a hard time staying awake. He denies any chest pain but does state he is having a hard time breathing and catching his breath. Patient is being followed by [facility] infectious disease for his right foot ulcer yesterday was probed to bone so there is concern that this is now osteomyelitis. PD PAST MEDICAL HISTORY - Past Medical History Cardiovascular: Hypertension Respiratory: Asthma, Sleep apnea, CPAP use Neuro: None Endocrine/Autoimmune: Type 2 diabetes GI: GERD : Kidney stones HEENT: None Psych: None Musculoskeletal: Chronic back pain Derm: None - Past Surgical History Past Surgical History: No General: Colonoscopy HEENT: Other - Present Medications Home Medications: Ambulatory Orders Medication Instructions Recorded Confirmed Acetaminophen [Tylenol] 650 mg PO Q4HR PRN 03/30/18 12/19/23 Albuterol Sulfate [Proair Hfa 1 - 2 puffs INH Q4H PRN 03/30/18 12/19/23 Inhaler] Fluticasone [Flonase] 1 spray MONICA DAILY PM 05/07/21 12/19/23 Gabapentin [Neurontin] 900 mg PO TID 05/07/21 12/19/23 Oxycodone HCl/Acetaminophen 1 tab PO Q6HR PRN 05/07/21 10/31/23 [Percocet 10-325 mg Tablet] Furosemide [Lasix] 20 mg PO DAILY 05/25/21 12/19/23 Montelukast [Singulair] 10 mg PO DAILY 05/25/21 12/19/23 Beclomethasone Dipropionate [Qvar 1 - 2 puffs INH DAILY 10/31/23 12/19/23 Redihaler (40 mcg)] Methadone [Methadone Hcl] 10 mg PO DAILY 12/19/23 12/19/23 Theophylline Anhydrous 300 mg PO BID 12/19/23 12/19/23 [Theophylline ER] predniSONE [Deltasone] 20 mg PO DAILY 12/19/23 12/19/23 - Allergies Allergies/Adverse Reactions: Allergies Allergy/AdvReac Type Severity Reaction Status Date / Time aspirin Allergy Unknown Verified 12/19/23 11:33 cyclobenzaprine AdvReac Hallucinati Verified 12/19/23 11:33 [From Flexeril] ons ibuprofen AdvReac Respiratory Verified 12/19/23 11:33 pseudoephedrine AdvReac Unknown Verified 12/19/23 11:33 [From Entex T] - Social History Does the pt smoke?: No Smoking Status: Never smoker Does the pt drink ETOH?: No Does the pt have substance abuse?: Yes - Immunizations Immunizations are current?: Yes - POLST Patient has POLST: No POLST Status: Full Code PD ED PE NORMAL - Vitals Vital signs reviewed: Yes - General General: Other (AOx2, confused) - HEENT HEENT: Atraumatic, PERRL - Neck Neck: Supple, no meningeal sign - Cardiac Cardiac: RRR, No murmur, No gallop, Strong equal pulses - Respiratory Respiratory: Other (bilateral ronchi) - Abdomen Abdomen: Normal bowel sounds, Soft, Non tender - Derm Derm: Normal color, Warm and dry, No rash - Extremities Extremities: No deformity, No edema - Neuro Neuro: No motor deficit, Other Eye Opening: Spontaneous Motor: Obeys Commands Verbal: Oriented GCS Score: 15 Results - Vitals Vitals: Vital Signs - 24 hr 12/19/23 12/19/23 12/19/23 11:22 11:35 11:40 Temperature 36.7 C Heart Rate 118 H 142 H 136 H Respiratory 20 21 26 H Rate Blood Pressure 130/83 H 123/81 H O2 Saturation 88 L 92 90 L If not protocol 2 3 : Oxygen Flow, liters/minute 12/19/23 12/19/23 12/19/23 12:55 13:50 14:28 Temperature 37.1 C Heart Rate 116 H 135 H 132 H Respiratory 18 24 12 Rate Blood Pressure 122/72 154/105 H 150/100 H O2 Saturation 97 92 93 If not protocol 3 : Oxygen Flow, liters/minute 12/19/23 12/19/23 15:43 16:49 Temperature Heart Rate 130 H 123 H Respiratory 25 H 24 Rate Blood Pressure 114/95 H O2 Saturation 97 99 If not protocol : Oxygen Flow, liters/minute Oxygen O2 Source BIPAP Oxygen Flow Rate 3 - EKG (time done) 1236 EKG releavant findings:: EKG personally interpreted by author of this note. Relevant findings are: Rate: Rate (enter#) (99) Rhythm: Sinus tachycardia [place]: Normal Intervals: Normal OR, Wide QRS QRS: Normal Computer interpretation: Agree with computer - Labs Labs: Laboratory Tests 12/19/23 12/19/23 12/19/23 11:11 12:45 12:45 WBC 11.5 H RBC 4.14 L Hgb 11.3 L Hct 38.6 L MCV 93.2 MCH 27.3 MCHC 29.3 L RDW 14.9 Plt Count 350 MPV 8.8 Neut # (Auto) 10.5 H Lymph # (Auto) 0.1 L Centre # (Auto) 0.8 Eos # (Auto) 0.0 Baso # (Auto) 0.0 Absolute Nucleated RBC 0.02 Nucleated RBC % 0.2 Manual Slide Review Indicated RBC Morph Micro Appear 1+ ANISOCYTOSIS D-Dimer Bld Gas Analysis Time Sample Site ABG pH ABG pCO2 ABG pO2 ABG HCO3 ABG Total CO2 ABG O2 Saturation ABG Base Excess Moi Test VBG pH VBG pCO2 VBG pO2 VBG HCO3 VBG Total CO2 VBG O2 Saturation VBG Base Excess Respiration Rate O2 Delivery Device O2 Liters/Min FiO2 EPAP Sodium 141 Potassium 3.2 L Chloride 97 L Carbon Dioxide 36 H Anion Gap 8.0 BUN 24 H Creatinine 1.2 Estimated GFR (MDRD) 62 L Glucose 106 H Calcium 9.2 Magnesium 1.8 Total Bilirubin 0.3 AST 12 ALT 14 Alkaline Phosphatase 50 Total Protein 6.6 Albumin 3.6 Globulin 3.0 Albumin/Globulin Ratio 1.2 Nasal Adenovirus (PCR) NOT DETECTED Nasal B. parapertussis DNA (PCR) NOT DETECTED Nasal Coronavir 229E PCR NOT DETECTED Nasal Coronavir HKU1 PCR NOT DETECTED Nasal Coronavir NL63 PCR NOT DETECTED Nasal Coronavir OC43 PCR NOT DETECTED Nasal Enterovir/Rhinovir PCR NOT DETECTED Nasal Influenza B PCR NOT DETECTED Nasal Influenza A PCR NOT DETECTED Nasal Parainfluen 1 PCR NOT DETECTED Nasal Parainfluen 2 PCR NOT DETECTED Nasal Parainfluen 3 PCR NOT DETECTED Nasal Parainfluen 4 PCR NOT DETECTED Nasal RSV (PCR) NOT DETECTED Nasal B.pertussis DNA PCR NOT DETECTED Nasal C.pneumoniae (PCR) NOT DETECTED Monica Human Metapneumo PCR NOT DETECTED Nasal M.pneumoniae (PCR) NOT DETECTED Nasal SARS-CoV-2 (PCR) NOT DETECTED 12/19/23 12/19/23 12/19/23 12:45 13:07 14:45 WBC RBC Hgb Hct MCV MCH MCHC RDW Plt Count MPV Neut # (Auto) Lymph # (Auto) Centre # (Auto) Eos # (Auto) Baso # (Auto) Absolute Nucleated RBC Nucleated RBC % Manual Slide Review RBC Morph Micro Appear D-Dimer 266.7 H Bld Gas Analysis Time 14:56 Sample Site RIGHT RADIAL ABG pH 7.34 L ABG pCO2 70 H* ABG pO2 61 L ABG HCO3 36.6 H ABG Total CO2 38.8 H ABG O2 Saturation 88 L ABG Base Excess 8.5 H Moi Test POSITIVE VBG pH 7.440 H VBG pCO2 52.9 H VBG pO2 68.0 H VBG HCO3 35.1 H VBG Total CO2 36.7 H VBG O2 Saturation 94.1 H VBG Base Excess 9.3 H Respiration Rate O2 Delivery Device NASAL CANNULA O2 Liters/Min 3.00 FiO2 EPAP Sodium Potassium Chloride Carbon Dioxide Anion Gap BUN Creatinine Estimated GFR (MDRD) Glucose Calcium Magnesium Total Bilirubin AST ALT Alkaline Phosphatase Total Protein Albumin Globulin Albumin/Globulin Ratio Nasal Adenovirus (PCR) Nasal B. parapertussis DNA (PCR) Nasal Coronavir 229E PCR Nasal Coronavir HKU1 PCR Nasal Coronavir NL63 PCR Nasal Coronavir OC43 PCR Nasal Enterovir/Rhinovir PCR Nasal Influenza B PCR Nasal Influenza A PCR Nasal Parainfluen 1 PCR Nasal Parainfluen 2 PCR Nasal Parainfluen 3 PCR Nasal Parainfluen 4 PCR Nasal RSV (PCR) Nasal B.pertussis DNA PCR Nasal C.pneumoniae (PCR) Monica Human Metapneumo PCR Nasal M.pneumoniae (PCR) Nasal SARS-CoV-2 (PCR) 12/19/23 17:25 WBC RBC Hgb Hct MCV MCH MCHC RDW Plt Count MPV Neut # (Auto) Lymph # (Auto) Centre # (Auto) Eos # (Auto) Baso # (Auto) Absolute Nucleated RBC Nucleated RBC % Manual Slide Review RBC Morph Micro Appear D-Dimer Bld Gas Analysis Time 1733 Sample Site RIGHT RADIAL ABG pH 7.35 ABG pCO2 62 H* ABG pO2 166 H* ABG HCO3 33.7 H ABG Total CO2 35.6 H ABG O2 Saturation 99 H ABG Base Excess 6.5 H Moi Test POSITIVE VBG pH VBG pCO2 VBG pO2 VBG HCO3 VBG Total CO2 VBG O2 Saturation VBG Base Excess Respiration Rate 12 O2 Delivery Device BiPAP O2 Liters/Min FiO2 50.00 EPAP 6 Sodium Potassium Chloride Carbon Dioxide Anion Gap BUN Creatinine Estimated GFR (MDRD) Glucose Calcium Magnesium Total Bilirubin AST ALT Alkaline Phosphatase Total Protein Albumin Globulin Albumin/Globulin Ratio Nasal Adenovirus (PCR) Nasal B. parapertussis DNA (PCR) Nasal Coronavir 229E PCR Nasal Coronavir HKU1 PCR Nasal Coronavir NL63 PCR Nasal Coronavir OC43 PCR Nasal Enterovir/Rhinovir PCR Nasal Influenza B PCR Nasal Influenza A PCR Nasal Parainfluen 1 PCR Nasal Parainfluen 2 PCR Nasal Parainfluen 3 PCR Nasal Parainfluen 4 PCR Nasal RSV (PCR) Nasal B.pertussis DNA PCR Nasal C.pneumoniae (PCR) Monica Human Metapneumo PCR Nasal M.pneumoniae (PCR) Nasal SARS-CoV-2 (PCR) - Rads (name of study) Chest x-ray Relevant Findings:: Final report received, EMP independent interpretation of test (Bilateral pneumonia, most pronounced in the right upper lobe) head ct w/o Relevant Findings:: Final report received, EMP independent interpretation of test (No acute intracranial pathology), Other PD Medical Decision Making - ED course ED course: 58-year-old male presents emergency department for altered mental status, increased shortness of breath. Viral swab all negative. CBC complete it does show leukocytosis, WC 11.5, hemoglobin 11.3, hematocrit 30.6, neutrophils 10.5. D-dimer slightly elevated at 266.7 age-adjusted this is appropriate and does not warrant any further imaging to rule out PE or DVT. She is very potassium slightly in the potassium 3.2 he was given a total of 40 mill equivalents p.o. to help with this. BUN 24 GFR 62 creatinine 1.2 this is slightly more elevated than his baseline. Head CT was complete because of altered mental status there is no intracranial abnormalities or findings. Chest x-ray was also complete which did reveal bilateral pneumonia. In the emergency department he was started on azithromycin and cefepime. [facility] Dr. Schmitz from infectious disease was kind enough to call me to check in on the patient She reports that patient's heel ulcer on the left side appears slightly worse he was seen at [facility] infectious disease yesterday and wound cultures was sent for further evaluation. He does have a history of growth of Enterococcus over the left heel. Dr. Schmitz is recommending while inpatient patient be on IV vancomycin, cefepime and doxycycline and that patient will most likely need 6 weeks of IV antibiotics for his osteomyelitis. Patient was started on BiPAP because he was hypercapnic in the emergency department and was having worsening altered mental status. Mentation cleared up significantly patient is doing a lot better plan is to admit him to ICU Dr. Parekh was kind enough to admit the patient for further hospitalization.. Departure - Departure Disposition: [facility] DC/[place]
[2023-12-19 12:50] LABS: CORONAVIRUS 229E-RESP PCR NOT DETECTED; CORONAVIRUS HKU1-RESP PCR NOT DETECTED; CORONAVIRUS NL63-RESP PCR NOT DETECTED; CORONAVIRUS OC43-RESP PCR NOT DETECTED; HUMAN METAPNEUMOVIRUS NOT DETECTED; INFLUENZA A- RESP PCR PANEL NOT DETECTED; INFLUENZA B - RESP PCR PANEL NOT DETECTED; RHINOVIRUS/ENTEROVIRUS NOT DETECTED; SARS-CoV-2 -RESP PCR PANEL NOT DETECTED
--- NOTE | 2023-12-19 12:50 | XRAY Report ---
PROCEDURE: Chest 2V INDICATIONS: SOA TECHNIQUE: 2 views of the chest were acquired. COMPARISON: Chest x-ray, 10/03/2023. FINDINGS: Surgical changes and devices: None. Lungs and pleura: There are infiltrates bilaterally, most pronounced in the right upper lobe suspici ous for pneumonia. No pleural effusions or pneumothorax. Mediastinum: Mediastinal contours appear normal. Heart size is normal. Bones and chest wall: Surgical changes in the lower cervical spine. No suspicious bony lesions. Ove rlying soft tissues appear unremarkable. IMPRESSION: Bilateral pneumonia. Reviewed by: Maura Watson MD on 12/19/2023 12:49 PM PST Approved by: Maura Watson MD on 12/19/2023 12:49 PM PST Station ID: [id number]
[2023-12-19 12:51] LABS: B. PARAPERTUSSIS- RESP PCR PAN NOT DETECTED; B. PERTUSSIS- RESP PCR PANEL NOT DETECTED; C. PNEUMONIAE- RESP PCR PANEL NOT DETECTED; M. PNEUMONIAE- RESP PCR PANEL NOT DETECTED; PARAINFLUENZA VIRUS 1 NOT DETECTED; PARAINFLUENZA VIRUS 2 NOT DETECTED; PARAINFLUENZA VIRUS 3 NOT DETECTED; PARAINFLUENZA VIRUS 4 NOT DETECTED; RSV- RESP PCR PANEL NOT DETECTED
[2023-12-19 12:53] LABS: BASOPHILS % (AUTO) 0.3 %; HCT - HEMATOCRIT 38.6 % (42.0-52.0); HGB - HEMOGLOBIN 11.3 g/dL (14.0-18.0); LYMPHOCYTES # (AUTO) 0.1 10^3/uL (1.5-3.5); LYMPHOCYTES % (AUTO) 0.6 %; MEAN CORPUSCULAR HEMOGLOBIN 27.3 pg (27.0-31.0); MEAN CORPUSCULAR HGB CONC 29.3 g/dL (32.0-36.0); MEAN CORPUSCULAR VOLUME 93.2 fL (80.0-94.0); MEAN PLATELET VOLUME 8.8 fL (7.4-11.4); MONOCYTES # (AUTO) 0.8 10^3/uL (0.0-1.0); MONOCYTES % (AUTO) 6.7 %; NEUTROPHILS # (AUTO) 10.5 10^3/uL (1.5-6.6); NEUTROPHILS % (AUTO) 91.6 %; NRBC ABSOLUTE COUNT (AUTO) 0.02 x10^3/uL; NUCLEATED RED BLOOD CELLS AUTO 0.2 /100WBC; PLT - PLATELET COUNT 350 10^3/uL (130-450); RED BLOOD COUNT 4.14 10^6/uL (4.70-6.10); RED CELL DISTRIBUTION WIDTH 14.9 % (12.0-15.0); WHITE BLOOD COUNT 11.5 x10^3/uL (4.8-10.8)
[2023-12-19 13:03] LABS: SLIDE REVIEW? Indicated
[2023-12-19 13:11] LABS: VBG PCO2 52.9 mmHg (41-51); VBG PH 7.44 (7.31-7.41)
[2023-12-19 13:12] LABS: VBG BASE EXCESS 9.3 mmol/L (-2 - +2); VBG HCO3 35.1 mmol/L (23-28); VBG OXYGEN SATURATION 94.1 % (60-80); VBG TOTAL CO2 36.7 mmol/L (24-29)
[2023-12-19 13:17] LABS: ALBUMIN 3.6 g/dL (3.2-5.5); ALBUMIN/GLOBULIN RATIO 1.2 (1.0-2.2); BILIRUBIN,TOTAL 0.3 mg/dL (0.2-1.0); CALCIUM 9.2 mg/dL (8.5-10.3); CREATININE 1.2 mg/dL (0.6-1.3); MAGNESIUM 1.8 mg/dL (1.7-2.3); POTASSIUM 3.2 mmol/L (3.5-4.5); TOTAL PROTEIN 6.6 g/dL (6.4-8.9)
[2023-12-19 13:33] LABS: RBC MORPHOLOGY (MULTIPLE) 1+ ANISOCYTOSIS (NORMAL)
[2023-12-19] MEDS: CEFEPIME 2 GM in SODIUM CHLORIDE 0.9% MINIBAG 100 ML IV STA (13:46)
[2023-12-19] MEDS: SODIUM CHLORIDE 0.9% 500 ML IV ONE (14:21)
[2023-12-19] MEDS: AZITHROMYCIN INJ 500 MG in SODIUM CHLORIDE 0.9% 250 ML IV STA (14:39)
[2023-12-19 15:01] LABS: ABG PH 7.34 (7.35-7.45)
[2023-12-19 15:02] LABS: ABG BASE EXCESS 8.5 mmol/L (-2.0-3.0); ABG HCO3 36.6 mmol/L (22.0-26.0); ABG OXYGEN SATURATION 88 % (94-98); ABG PO2 61 mmHg (80-100); ABG TCO2 38.8 MMOL/L (21.0-29.0); ALLEN TEST POSITIVE
[2023-12-19 15:05] LABS: ABG PCO2 70 mmHg (34-45)
[2023-12-19] MEDS: POTASSIUM CHLORIDE 20 MEQ TABLET PO STA ×2 (16:38→18:10)
[2023-12-19] MEDS: hydrOXYzine PAMOATE 25 MG CAPSULE PO STA ×2 (16:39→18:10)
--- NOTE | 2023-12-19 17:21 | CT Report ---
PROCEDURE: Head WO INDICATIONS: AMS TECHNIQUE: Noncontrast 4.5 mm thick angled axial sections acquired from the foramen magnum to the vertex. For r adiation dose reduction, the following was used: automated exposure control, adjustment of mA and/or kV according to patient size. COMPARISON: None. FINDINGS: Image quality: Excellent. CSF spaces: Basal cisterns are patent. No extra-axial fluid collections. Ventricles are normal in size and shape. Brain: No midline shift. No intracranial masses or hemorrhage. Rodriguez-white matter interface is norm al. Skull and face: Calvarium and visualized facial bones are intact, without suspicious lesions. Sinuses: Visualized sinuses and mastoids are clear. IMPRESSION: No acute intracranial pathology. Reviewed by: Vishal Ochoa MD on 12/19/2023 5:19 PM [facility] Approved by: Vishal Ochoa MD on 12/19/2023 5:19 PM [facility] Station ID: [id number]
[2023-12-19] MEDS ORDERED: ONDANSETRON 4 MG/2 ML VIAL IVP PRN (17:32)
[2023-12-19 17:42] LABS: ABG PH 7.35 (7.35-7.45)
[2023-12-19 17:43] LABS: ABG BASE EXCESS 6.5 mmol/L (-2.0-3.0); ABG HCO3 33.7 mmol/L (22.0-26.0); ABG OXYGEN SATURATION 99 % (94-98); ABG TCO2 35.6 MMOL/L (21.0-29.0)
[2023-12-19 17:44] LABS: ABG PCO2 62 mmHg (34-45)
[2023-12-19 17:45] LABS: ABG PO2 166 mmHg (80-100); ALLEN TEST POSITIVE
[2023-12-19 17:46] LABS: ABG RESPIRATORY RATE 12 b/min
[2023-12-19] MEDS: DEXTROSE 5%-0.9% NACL 1,000 ML IV SCH (18:30)
[2023-12-19] MEDS: SODIUM CHLORIDE FLUSH 0.9% 10 ML SYRINGE IVP PRN (18:30)
[2023-12-19] MEDS: hydrALAZINE INJ 20 MG/ML VIAL IVP ONE (18:55)
[2023-12-19] MEDS: POTASSIUM CHLOR 10 MEQ/100 ML 10 MEQ/100 ML BAG IV SCH (19:01)
--- NOTE | 2023-12-19 19:08 | HISTORY & PHYSICAL EXAMINATION ---
Chief Complaint - Chief Complaint Chief Complaint: Obtunded, SOB History of Present Illness - Admitted From Admitted From:: ED - History Obtained From History obtained from: ED provider and chart review - History of Present Illness HPI Comment/Other: This is a 58-year-old male with a history of asthma, HTN, sleep apnea on CPAP, he is on Methadone maintenance, has diabetes with a diabetic foot ulcer that is followed at [place] [facility] and the last note from Dr Brown was just yesterday stating this was osteomyelitis. He is also followed by Dr. Kearney of infectious disease at [facility]. The patient was at [facility] for rehab after an unknown hospitalization somewhere else and today he developed shortness of breath and staff also noted he was obtunded and tachycardic. He was brought to the ER wheezing, drowsy, and an ABG showed pH 7.37, pCO2 70, pO2 60 with saturation 88% and he was put on BiPAP. Other workup showed that he has a PNA by CXR. He received IV saline bolus 500 cc for the high heart rate of 140- 150. WBC 11.5. BUN/creat 24/1.2, K 3.2. Blood cultures were drawn and he received iv cefepime and iv azithromycin. A head CT was done that showed no acute findings. The ED provider spoke to Dr. Kearney of infectious disease who recommended that he be put on IV Vanco, cefepime and doxycycline while he is here. The ED provider then spoke to me on the Hospitalist team. This patient will be admitted to the ICU needing BiPAP and needing management of his acute respiratory failure with hypoxia and hypercarbia, with an asthma/COPD exacerb ation with pneumonia and needing treatment of his chronic diabetic foot ulcers/osteomyelitis. Patient was obtunded in ER and could give no history. Upon admission to the ICU, he is slightly more awake and knows no history, says that he lives at home with his son and is not at [facility], he does not know if he was hospitalized before being at [facility]. He claims he takes no medications at all for his diabetes. She does not know any other past medical history. He is currently having rigors and denies any pain. His CODE STATUS could not be discussed with him because of his obtundation and now his confusion. There is no POLST scanned into this EMR. Therefore, by default he will be a Full Code. History - Past Medical History Cardiovascular: reports: Hypertension Respiratory: reports: Asthma, Sleep apnea, CPAP use Neuro: reports: None Endocrine/Autoimmune: reports: Type 2 diabetes GI: reports: GERD : reports: Kidney stones HEENT: reports: None Psych: reports: None Musculoskeletal: reports: Chronic back pain Derm: reports: Other (Has chronic diabetic foot ulcers, has toe amputations) MRSA Hx?: No - Past Surgical History General: reports: Colonoscopy HEENT: reports: Other Derm: reports: Other (toe amputations) - Family & Social History Family History: Mother: Alive and Well, Asthma Family History Comment/Other: From a previous encounter: he reported his mother also has asthma. His son has irritable bowel syndrome. Living arrangement: custodial Social History Notes: From a previous encounter: Patient used to live at home with his . They were for just over a year. 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 He denied any smoking and reported rare alcohol use. He does use edible cannabis - Substance History Use: Uses substance without health or social issues: Cannabis (Edibles) - POLST Patient has POLST: No POLST Status: Full Code Meds/Allgy - Home Medications Home Medications: Ambulatory Orders Medication Instructions Recorded Confirmed Acetaminophen [Tylenol] 650 mg PO Q4HR PRN 03/30/18 10/31/23 Albuterol Sulfate [Proair Hfa 1 - 2 puffs INH Q4H PRN 03/30/18 12/19/23 Inhaler] Fluticasone [Flonase] 1 spray MONICA DAILY PM 05/07/21 10/31/23 Gabapentin [Neurontin] 900 mg PO TID 05/07/21 12/20/23 Furosemide [Lasix] 20 mg PO DAILY 05/25/21 10/31/23 Montelukast [Singulair] 10 mg PO QPM 05/25/21 12/20/23 Beclomethasone Dipropionate [Qvar 1 - 2 puffs INH DAILY 10/31/23 10/31/23 Redihaler (40 mcg)] Methadone [Methadone Hcl] 10 mg PO QDAC 12/19/23 12/20/23 Theophylline Anhydrous 300 mg PO BID 12/19/23 12/19/23 [Theophylline ER] Ipratropium/Albuterol [Combivent 1 puffs INH QID 12/20/23 12/20/23 Respimat] Methadone [Methadone Hcl] 5 mg PO QPM 12/20/23 Pantoprazole [Protonix] 40 mg PO BID 12/20/23 12/20/23 Sertraline [Zoloft] 25 mg PO DAILY 12/20/23 - Allergies Allergies/Adverse Reactions: Allergies Allergy/AdvReac Type Severity Reaction Status Date / Time aspirin Allergy Unknown Verified 12/19/23 11:33 cyclobenzaprine AdvReac Hallucinati Verified 12/19/23 11:33 [From Flexeril] ons ibuprofen AdvReac Respiratory Verified 12/19/23 11:33 pseudoephedrine AdvReac Unknown Verified 12/19/23 11:33 [From Entex T] Review of Systems - All Other Systems All Other Systems: reports: Other (Unable to obtain since the patient was obtunded probably from CO2 narcosis, he is more awake after BIPAP but provides no information, says he dos not know to everything) Exam - Vital Signs Reviewed Vital Signs: Yes Vital Signs: Vital Signs x48h Temp Pulse Pulse Resp BP BP Pulse Ox 12/19/23 18:55 147/101 H 12/19/23 18:49 114 H 12 93 12/19/23 18:45 117 H 12 157/101 H 96 12/19/23 18:42 36.8 C 12/19/23 18:30 121 H 20 168/106 H 95 12/19/23 18:28 12/19/23 18:21 119 H 14 155/106 H 93 12/19/23 16:49 123 H 24 114/95 H 99 12/19/23 15:43 130 H 25 H 97 12/19/23 14:28 37.1 C 132 H 12 150/100 H 93 12/19/23 13:50 135 H 24 154/105 H 92 12/19/23 12:55 116 H 18 122/72 97 12/19/23 11:40 136 H 26 H 123/81 H 90 L 12/19/23 11:35 142 H 21 92 12/19/23 11:22 36.7 C 118 H 20 130/83 H 88 L O2 Flow Rate 12/19/23 18:55 12/19/23 18:49 4 12/19/23 18:45 4 12/19/23 18:42 12/19/23 18:30 6 12/19/23 18:28 3 12/19/23 18:21 6 12/19/23 16:49 12/19/23 15:43 12/19/23 14:28 12/19/23 13:50 3 12/19/23 12:55 12/19/23 11:40 3 12/19/23 11:35 2 12/19/23 11:22 - Physical Exam General Appearance: positive: Moderate distress (He is having rigors. He is pulling at his sheets. He is able to communicate in short sentences.) Eyes Bilateral: positive: EOMI, No lid inflammation ENT: positive: ENT inspection nml, Dry mucous membranes, Other (Disheveled) Neck: positive: Nml inspection Respiratory: positive: Wheezes, Rhonchi, Other (Lungs sound very) Cardiovascular: positive: Tachycardia (Very distant heart sounds due to wheezing) Abdomen: positive: Non-tender, No distention Skin: positive: Pallor, Other (Cold to touch) Extremities: positive: Non-tender, Other (Several toes are missing. The feet are both in bandages.) Neurologic/Psychiatric: positive: Disoriented to person, Disoriented to place, Disoriented to time, Other (Moving all extremities spontaneously) Conclusion/Plan - Problem List (1) Acute respiratory failure with hypoxia and hypercapnia Conclusion/Plan: Likely caused by his pneumonia on top of an asthma exacerbation in a patient who has sleep apnea and uses CPAP, per Hx. He was hyper Neck and presumed to be in CO2 narcosis, BiPAP was started in the ER and he is awoken Plan: Admit to the ICU Continue with BiPAP Target O2 saturation will be 88% and above Treat the underlying pneumonia and asthma exacerbation Start IV fluids to treat the tachycardia. Taper IV fluids down as he starts to take a diet. (2) Pneumonia Conclusion/Plan: Since he has been living at a fdc facility, he will be treated as a healthcare-associated pneumonia. His tachycardia at presentation and rigors on exam suggest he may be developing a bacteremia Plan: Obtain spt culture Await blood cx results I will order the antibiotics that were advised by Dr. Kearney of infectious disease: IV Vanco, cefepime and Doxy Start probiotics when he is awake and can safely swallow Qualifiers: Pneumonia type: due to unspecified organism Laterality: bilateral Lung location: lower lobe of lung Qualified Code(s): J18.9 - Pneumonia, unspecified organism (3) Altered mental status Conclusion/Plan: Patient was obtunded in the ER, felt to be from hypoxia or CO2 narcosis and he was put on BiPAP. Head CT was done in the ER that did not show acute finding. His AMS could also be from the acute infection As he is arriving in the ICU he pulled off his BiPAP and is speaking a little. He has a very poor memory, he does not know where he is, he is only oriented to self Plan: Continue to treat his various diagnoses and give supportive care (4) Asthma exacerbation Conclusion/Plan: Likely due to his pneumonia. He carries a history of chronic asthma Plan: I will order DuoNebs every 4 hours as needed and 4 times daily scheduled. If the tachycardia persists, he may need his DuoNebs switched to Xopenex. Start Pulmicort nebulized twice daily Give iv steroids in the form of Solu-Medrol 40 IV 3 times daily Continue his montelukast home med, dose it at at bedtime Give supplemental O2, target saturation 88% and above Qualifiers: Asthma severity: moderate Asthma persistence: persistent Qualified Code(s): J45.41 - Moderate persistent asthma with (acute) exacerbation (5) Osteomyelitis Conclusion/Plan: As per history, obtained from yesterday's [facility] note by Dr Brown. Dr. Brown performed debridement of all his heel ulcers and sent off a bone sample for culture. The reason he was at [facility] was for rehab and prior to that he was apparently hospitalized for some infection. He does not know where he was hospitalized, the ER provider did not have that information passed on from [facility]. Plan: Appreciate Dr. Kearney of infectious disease input; she spoke to our ED provider. I will request discharge summary from what ever hospital he was at and then went to [facility] rehab. I suspect he may have been at [facility], since that is where Dr. Kearney of [place] works He apparently gets wound management weekly which we will hopefully continue here thru Wound Clinic Await blood culture results Await yesterday's (outpatient) bone sample culture results I will start the antibiotics that were recommended by Dr. Kearney: IV Vanco, IV cefepime, IV Doxy I will order SCDs for DVT prophylaxis because of the recent debridement, start Lovenox possibly tomorrow Qualifiers: Osteomyelitis type: other chronic Osteomyelitis location: multiple sites Qualified Code(s): M86.69 - Other chronic osteomyelitis, multiple sites (6) DM type 2 (diabetes mellitus, type 2) Conclusion/Plan: Patient carries a diagnosis of DM. His last A1c was done in 2019, in our EMR His reconciled med list does not show any diabetic medications whatsoever Plan: I will start him on a clear liquid diet with carb control and advance as tolerated when he awakens more Do fingerstick checks before meals and at bedtime, start hypoglycemia protocol, start sliding scale insulin coverage Obtain A1c with a.m. labs (7) EN (obstructive sleep apnea) Conclusion/Plan: As per this chart Plan: I will order his home CPAP device to be used while he is here - Lab Results Fish Bones: 12/20/23 04:16 12/20/23 04:16 - Diagnostic Imaging Results Diagnostic Imaging Results: positive: Final report reviewed - EKG Results EKG Interpreted Independently: Yes EKG Findings: Sinus tachycardia, nonspecific ST-T changes. - Other Other Results/Comments: Attestation: The patient is expected to be Hospitalized for greater than 2 midnights and is expected to be discharged or transferred to another facility within 96 hours: Yes.
[2023-12-19] MEDS: IPRATROPIUM/ALBUTEROL 3 ML NEB INH SCH (19:54)
[2023-12-19] MEDS: BUDESONIDE 0.5 MG/2 ML NEB INH SCH (19:58)
[2023-12-19] MEDS ORDERED: MAGNESIUM SULFATE 2 GRAM 2 GM/50 ML BAG IV ONE (20:30)
[2023-12-19] MEDS: VANCOMYCIN INJ 1.75 GM in SODIUM CHLORIDE 0.9% 500 ML IV STA (20:38)
[2023-12-19] MEDS: FAMOTIDINE 20 MG/2 ML VIAL IVP SCH (20:40)
[2023-12-19] MEDS: DOXYCYCLINE INJ 100 MG in SODIUM CHLORIDE 0.9% MINIBAG 100 ML IV SCH (20:54)
[2023-12-19] MEDS ORDERED: THEOPHYLLINE ANHYDROUS 300 MG PO SCH (21:00)
[2023-12-19] MEDS: MONTELUKAST 10 MG TABLET PO SCH (21:09)
[2023-12-19] MEDS: GABAPENTIN 300 MG CAPSULE PO SCH (21:09)
[2023-12-19] MEDS: methylPREDNISolone SUCCINATE 40 MG/ML VIAL IVP SCH (21:12)
[2023-12-19] MEDS: FLUTICASONE NASAL SPRAY NAS SCH (21:15)
[2023-12-19] MEDS: MAGNESIUM OXIDE 400 MG TABLET PO ONE (22:22)
[2023-12-19] MEDS: PHENOL THROAT SPRAY 177 ML MM PRN (22:29)
[2023-12-19] MEDS: CEFEPIME 1 GM in SODIUM CHLORIDE 0.9% MINIBAG 100 ML IV SCH (22:57)
[2023-12-20] MEDS: SODIUM CHLORIDE FLUSH 0.9% 10 ML SYRINGE IVP SCH (00:55)
[2023-12-20] MEDS: HALOPERIDOL 5 MG/ML VIAL IVP ONE (02:00)
[2023-12-20 04:33] LABS: MEAN PLATELET VOLUME 8.7 fL (7.4-11.4); RED CELL DISTRIBUTION WIDTH 15.1 % (12.0-15.0)
[2023-12-20 04:36] LABS: BASOPHILS % (AUTO) 0.3 %; HCT - HEMATOCRIT 32.3 % (42.0-52.0); HGB - HEMOGLOBIN 9.6 g/dL (14.0-18.0); MEAN CORPUSCULAR HEMOGLOBIN 28.2 pg (27.0-31.0); MEAN CORPUSCULAR HGB CONC 29.7 g/dL (32.0-36.0); MEAN CORPUSCULAR VOLUME 94.7 fL (80.0-94.0); MONOCYTES % (AUTO) 4.1 %; PLT - PLATELET COUNT 308 10^3/uL (130-450); RED BLOOD COUNT 3.41 10^6/uL (4.70-6.10); WHITE BLOOD COUNT 17.4 x10^3/uL (4.8-10.8)
[2023-12-20 04:39] LABS: ABNORMAL LYMPHS % (MANUAL) 0 %
[2023-12-20 04:49] LABS: CALCIUM 8.3 mg/dL (8.5-10.3); CREATININE 0.9 mg/dL (0.6-1.3); PHOSPHORUS 2.4 mg/dL (2.5-5.0); POTASSIUM 3.7 mmol/L (3.5-4.5)
[2023-12-20 04:54] LABS: CALCIUM, IONIZED 1.05 mmol/L (1.15-1.33); VBG PH 7.444 (7.31-7.41)
[2023-12-20 05:04] LABS: BAND NEUTROPHILS % (MANUAL) 16 %; DIFFERENTIAL COMMENT MANUAL DIFFERENTIAL; LYMPHOCYTES # (MANUAL) 0.9 10^3/uL (1.5-3.5); LYMPHOCYTES % (MANUAL) 5 %; MYELOCYTES % (MANUAL) 1 %; NEUTROPHILS # (MANUAL) 16.4 10^3/uL (1.5-6.6); PLATELET ESTIMATE, MANUAL NORMAL (130-450,000) (NORMAL); RBC MORPHOLOGY (MULTIPLE) NORMAL APPEARANCE (NORMAL)
[2023-12-20] MEDS: CALCIUM GLUC 1,000MG/50ML-NACL 1,000 MG/50 ML BAG IV ONE (06:12)
[2023-12-20 06:23] LABS: ABG BASE EXCESS 6.8 mmol/L (-2.0-3.0); ABG HCO3 32.9 mmol/L (22.0-26.0); ABG OXYGEN SATURATION 95 % (94-98); ABG PCO2 54 mmHg (34-45); ABG PO2 76 mmHg (80-100); ABG TCO2 34.5 MMOL/L (21.0-29.0); ALLEN TEST POSITIVE
[2023-12-20] MEDS ORDERED: NEUTRA-PHOS 250 MG TABLET PO SCH (07:00)
[2023-12-20] MEDS: VANCOMYCIN INJ 1 GM in SODIUM CHLORIDE 0.9% 250 ML IV SCH (08:07)
[2023-12-20] MEDS: METHADONE 5 MG TABLET PO SCH (09:12)
[2023-12-20] MEDS: FUROSEMIDE 20 MG TABLET PO SCH (09:12)
[2023-12-20] MEDS ORDERED: MORPHINE 2 MG/ML CARPUJECT ONE (09:28)
[2023-12-20] MEDS: MORPHINE 2 MG/ML CARPUJECT IVP STA (09:31)
[2023-12-20] MEDS ORDERED: LORazepam 2 MG/ML VIAL ONE (09:35)
[2023-12-20] MEDS: LORazepam 2 MG/ML VIAL IVP PRN (09:38)
[2023-12-20] MEDS ORDERED: METOPROLOL 5 MG/5 ML VIAL IVP ONE (10:00)
[2023-12-20] MEDS: METOPROLOL 5 MG/5 ML VIAL IVP STA (10:03)
[2023-12-20] MEDS: POTASSIUM PHOSPHATE 15 MMOL in SODIUM CHLORIDE 0.9% 250 ML IV ONE (10:46)
[2023-12-20 10:59] LABS: ESTIMATED AVERAGE GLUCOSE 143 mg/dL (70-100); HEMOGLOBIN A1c% 6.6 % (4.27-6.07)
[2023-12-20 11:20] LABS: ABG BASE EXCESS 2.2 mmol/L (-2.0-3.0); ABG OXYGEN SATURATION 95 % (94-98); ABG PO2 87 mmHg (80-100); ALLEN TEST POSITIVE
[2023-12-20 11:22] LABS: ABG PCO2 63 mmHg (34-45)
[2023-12-20] MEDS ORDERED: KETAMINE 500 MG/10 ML VIAL ONE (11:39)
[2023-12-20] MEDS ORDERED: MIDAZOLAM 2 MG/2 ML VIAL ONE (11:39)
[2023-12-20] MEDS ORDERED: ROCURONIUM 50 MG/5 ML VIAL ONE (11:39)
[2023-12-20] MEDS ORDERED: PROPOFOL 1000 MG/100 ML 1,000 MG/100 ML BOTTLE IV ONE (11:39)
[2023-12-20] MEDS ORDERED: ETOMIDATE 40 MG/20 ML VIAL IVP ONE (11:39)
[2023-12-20] MEDS ORDERED: SUCCINYLCHOLINE 200 MG/10 ML VIAL ONE (11:40)
--- NOTE | 2023-12-20 12:22 | XRAY Report ---
PROCEDURE: Chest for Line Placement INDICATIONS: Intubated and ng tube placed TECHNIQUE: One view of the chest was acquired. COMPARISON: None. FINDINGS: Surgical changes and devices: An endotracheal tube is present, 1.4 cm above the tank. An NG tube i s present at the distal aspect of which is projected over the gastric fundus. Lungs and pleura: Dense consolidative radiopacities are present in the upper and mid lungs. There is relative sparing at the lung bases. No pleural effusion or pneumothorax. Mediastinum: Mediastinal contours appear normal. Heart size is normal. Bones and chest wall: No suspicious bony lesions. Overlying soft tissues appear unremarkable. IMPRESSION: 1. Tubes and lines as above. 2. Findings suspicious for atypical pulmonary edema, ARDS, or multifocal pneumonia. Reviewed by: Janet Andres MD on 12/20/2023 12:20 PM PST Approved by: Janet Andres MD on 12/20/2023 12:20 PM PST Station ID: [id number]
[2023-12-20] MEDS: SODIUM CHLORIDE 0.9% 500 ML IV ONE (12:28)
[2023-12-20] MEDS ORDERED: NOREPINEPHRINE/0.9 % NS 8 MG/250 ML BAG IV ONE (12:42)
[2023-12-20] MEDS: NOREPINEPHRINE/0.9 % NS 8 MG/250 ML BAG IV SCH (12:50)
--- NOTE | 2023-12-20 13:18 | PROVIDER PROGRESS NOTE ---
Subjective - Subjective Pt reports feeling: Worse (He is agitated, pulled out iv, pulled out Mccarty. Bilat soft upper exrtrem restraints were started overnight. Then he slept from about 0100 on the BiPAP until 0500. This morning he is again agitated and pulling at everything and appears in more respiratory distress) Objective - Vital Signs/Intake & Output Reviewed Vital Signs: Yes Vital Signs: Vital Signs Pulse Pulse Resp BP Pulse Ox O2 Flow Rate 12/20/23 13:00 96 18 102/67 99 12/20/23 12:50 95 18 64/52 L 99 12/20/23 12:19 100 12/20/23 12:00 102 H 18 69/54 L 96 12/20/23 11:00 6 12/20/23 10:58 115 H 17 101/69 97 12/20/23 10:25 116 H 22 129/90 H 94 12/20/23 10:11 119 H 26 H 12/20/23 10:00 122 H 18 135/99 H 86 L 12/20/23 09:58 139 H Intake & Output: Intake & Output 12/17/23 12/18/23 12/19/23 12/20/23 23:59 23:59 23:59 23:59 Intake Total 2128 203 Output Total 890 942 Balance 1238 -739 - Objective General Appearance: positive: Severe distress (Agitated, pulling at everything, already pulled off Mccarty and IV, wearing a BiPAP mask, trying to set up) Eyes Bilateral: positive: No lid inflammation ENT: positive: Dry mucous membranes, Other (Wearing BiPAP mask) Neck: positive: Nml inspection Respiratory: positive: Wheezes, Rales Cardiovascular: positive: Tachycardia, Other (Distant heart sounds due to wheezes and rales) Abdomen: positive: Non-tender, No distention Skin: positive: Warm, Diaphoresis Extremities: positive: Other (1+ pedal edema, center toe on left foot missing, t oes of right foot bandaged, both feet bandaged) Neurologic/Psychiatric: positive: Disoriented to person, Disoriented to place, Disoriented to time, Other (Agitated, moving all extremities, is not following cues) - Lab Results Fish Bones: 12/21/23 04:27 12/22/23 04:28 Other Labs: Lab Results x24hrs 0212/20/23 12/20/23 Range/Units 12:18 11:10 06:15 WBC (4.8-10.8) x10^3/uL RBC (4.70-6.10) 10^6/uL Hgb (14.0-18.0) g/dL Hct (42.0-52.0) % MCV (80.0-94.0) fL MCH (27.0-31.0) pg MCHC (32.0-36.0) g/dL RDW (12.0-15.0) % Plt Count (130-450) 10^3/uL MPV (7.4-11.4) fL Neut # (Auto) (1.5-6.6) 10^3/uL Lymph # (Auto) (1.5-3.5) 10^3/uL [place] # (Auto) (0.0-1.0) 10^3/uL Eos # (Auto) (0.0-0.7) 10^3/uL Baso # (Auto) (0.0-0.1) 10^3/uL Absolute Nucleated RBC x10^3/uL Total Counted Band Neuts % (Manual) (0 - 10) % Abnorm Lymph % (Manual) % Myelocytes % ( - 0) % Nucleated RBC % /100WBC Neutrophils # (Manual) (1.5-6.6) 10^3/uL Lymphocytes # (Manual) (1.5-3.5) 10^3/uL Monocytes # (Manual) (0.0-1.0) 10^3/uL Eosinophils # (Manual) (0-0.7) 10^3/uL Basophils # (Manual) (0-0.1) 10^3/uL Differential Comment Platelet Estimate (NORMAL) RBC Morph Micro Appear (NORMAL) D-Dimer (200.0-255.0) ng/mL Bld Gas Analysis Time 1110 0620 Sample Site LEFT RADIAL RIGHT RADIAL ABG pH 7.30 L 7.40 (7.35-7.45) ABG pCO2 63 H* 54 H (34-45) mmHg ABG pO2 87 76 L (80-100) mmHg ABG HCO3 30.0 H 32.9 H (22.0-26.0) mmol/L ABG Total CO2 32.0 H 34.5 H (21.0-29.0) MMOL/L ABG O2 Saturation 95 95 (94-98) % ABG Base Excess 2.2 6.8 H (-2.0-3.0) mmol/L Moi Test POSITIVE POSITIVE VBG pH (7.31-7.41) Ionized Calcium (1.15-1.33) mmol/L Respiration Rate b/min O2 Delivery Device BiPAP BiPAP O2 Liters/Min LPM FiO2 50.00 40.00 EPAP 5 6 cmH2O IPAP 12 12 cmH2O Sodium (135-145) mmol/L Potassium (3.5-4.5) mmol/L Chloride (101-111) mmol/L Carbon Dioxide (21-32) mmol/L Anion Gap (6-13) BUN (6-20) mg/dL Creatinine (0.6-1.3) mg/dL Estimated GFR (MDRD) (>89) Glucose (74-104) mg/dL POC Whole Bld Glucose (70 - 100) mg/dL Estimat Average Glucose (70-100) mg/dL Hemoglobin A1c % (4.27-6.07) % Calcium (8.5-10.3) mg/dL Phosphorus (2.5-5.0) mg/dL Magnesium (1.7-2.3) mg/dL Total Bilirubin (0.2-1.0) mg/dL AST (10-42) IU/L ALT (10-60) IU/L Alkaline Phosphatase (42-121) IU/L Troponin I High Sens 577.6 H* (2.3-19.7) ng/L C-React Prot High Sens mg/L Total Protein (6.4-8.9) g/dL Albumin (3.2-5.5) g/dL Globulin (2.1-4.2) g/dL Albumin/Globulin Ratio (1.0-2.2) Vitamin B12 (180-914) pg/mL Folate (5.90 - >24.8) ng/mL Nasal Screen MRSA (PCR) (NEGATIVE) 12/20/23 12/20/23 12/20/23 Range/Units 04:16 04:16 04:16 WBC (4.8-10.8) x10^3/uL RBC (4.70-6.10) 10^6/uL Hgb (14.0-18.0) g/dL Hct (42.0-52.0) % MCV (80.0-94.0) fL MCH (27.0-31.0) pg MCHC (32.0-36.0) g/dL RDW (12.0-15.0) % Plt Count (130-450) 10^3/uL MPV (7.4-11.4) fL Neut # (Auto) (1.5-6.6) 10^3/uL Lymph # (Auto) (1.5-3.5) 10^3/uL [place] # (Auto) (0.0-1.0) 10^3/uL Eos # (Auto) (0.0-0.7) 10^3/uL Baso # (Auto) (0.0-0.1) 10^3/uL Absolute Nucleated RBC x10^3/uL Total Counted Band Neuts % (Manual) (0 - 10) % Abnorm Lymph % (Manual) % Myelocytes % ( - 0) % Nucleated RBC % /100WBC Neutrophils # (Manual) (1.5-6.6) 10^3/uL Lymphocytes # (Manual) (1.5-3.5) 10^3/uL Monocytes # (Manual) (0.0-1.0) 10^3/uL Eosinophils # (Manual) (0-0.7) 10^3/uL Basophils # (Manual) (0-0.1) 10^3/uL Differential Comment Platelet Estimate (NORMAL) RBC Morph Micro Appear (NORMAL) D-Dimer (200.0-255.0) ng/mL Bld Gas Analysis Time Sample Site ABG pH (7.35-7.45) ABG pCO2 (34-45) mmHg ABG pO2 (80-100) mmHg ABG HCO3 (22.0-26.0) mmol/L ABG Total CO2 (21.0-29.0) MMOL/L ABG O2 Saturation (94-98) % ABG Base Excess (-2.0-3.0) mmol/L Moi Test VBG pH 7.444 H (7.31-7.41) Ionized Calcium 1.05 L (1.15-1.33) mmol/L Respiration Rate b/min O2 Delivery Device O2 Liters/Min LPM FiO2 EPAP cmH2O IPAP cmH2O Sodium (135-145) mmol/L Potassium (3.5-4.5) mmol/L Chloride (101-111) mmol/L Carbon Dioxide (21-32) mmol/L Anion Gap (6-13) BUN (6-20) mg/dL Creatinine (0.6-1.3) mg/dL Estimated GFR (MDRD) (>89) Glucose (74-104) mg/dL POC Whole Bld Glucose (70 - 100) mg/dL Estimat Average Glucose 143 H (70-100) mg/dL Hemoglobin A1c % 6.6 H (4.27-6.07) % Calcium (8.5-10.3) mg/dL Phosphorus (2.5-5.0) mg/dL Magnesium (1.7-2.3) mg/dL Total Bilirubin (0.2-1.0) mg/dL AST (10-42) IU/L ALT (10-60) IU/L Alkaline Phosphatase (42-121) IU/L Troponin I High Sens (2.3-19.7) ng/L C-React Prot High Sens mg/L Total Protein (6.4-8.9) g/dL Albumin (3.2-5.5) g/dL Globulin (2.1-4.2) g/dL Albumin/Globulin Ratio (1.0-2.2) Vitamin B12 983 H (180-914) pg/mL Folate 7.2 (5.90 - >24.8) ng/mL Nasal Screen MRSA (PCR) (NEGATIVE) 12/20/23 12/20/23 12/19/23 Range/Units 04:16 04:16 20:03 WBC 17.4 H (4.8-10.8) x10^3/uL RBC 3.41 L (4.70-6.10) 10^6/uL Hgb 9.6 L (14.0-18.0) g/dL Hct 32.3 L (42.0-52.0) % MCV 94.7 H (80.0-94.0) fL MCH 28.2 (27.0-31.0) pg MCHC 29.7 L (32.0-36.0) g/dL RDW 15.1 H (12.0-15.0) % Plt Count 308 (130-450) 10^3/uL MPV 8.7 (7.4-11.4) fL Neut # (Auto) Not Reportable (1.5-6.6) 10^3/uL Lymph # (Auto) Not Reportable (1.5-3.5) 10^3/uL [place] # (Auto) Not Reportable (0.0-1.0) 10^3/uL Eos # (Auto) Not Reportable (0.0-0.7) 10^3/uL Baso # (Auto) Not Reportable (0.0-0.1) 10^3/uL Absolute Nucleated RBC Not Reportable x10^3/uL Total Counted 100 Band Neuts % (Manual) 16 H (0 - 10) % Abnorm Lymph % (Manual) 0 % Myelocytes % 1 H ( - 0) % Nucleated RBC % Not Reportable /100WBC Neutrophils # (Manual) 16.4 H (1.5-6.6) 10^3/uL Lymphocytes # (Manual) 0.9 L (1.5-3.5) 10^3/uL Monocytes # (Manual) 0.0 (0.0-1.0) 10^3/uL Eosinophils # (Manual) 0.0 (0-0.7) 10^3/uL Basophils # (Manual) 0.0 (0-0.1) 10^3/uL Differential Comment MANUAL DIFFERENTIAL Platelet Estimate NORMAL (130-450,000) (NORMAL) RBC Morph Micro Appear NORMAL APPEARANCE (NORMAL) D-Dimer (200.0-255.0) ng/mL Bld Gas Analysis Time Sample Site ABG pH (7.35-7.45) ABG pCO2 (34-45) mmHg ABG pO2 (80-100) mmHg ABG HCO3 (22.0-26.0) mmol/L ABG Total CO2 (21.0-29.0) MMOL/L ABG O2 Saturation (94-98) % ABG Base Excess (-2.0-3.0) mmol/L Moi Test VBG pH (7.31-7.41) Ionized Calcium (1.15-1.33) mmol/L Respiration Rate b/min O2 Delivery Device O2 Liters/Min LPM FiO2 EPAP cmH2O IPAP cmH2O Sodium 142 (135-145) mmol/L Potassium 3.7 (3.5-4.5) mmol/L Chloride 102 (101-111) mmol/L Carbon Dioxide 33 H (21-32) mmol/L Anion Gap 7.0 (6-13) BUN 22 H (6-20) mg/dL Creatinine 0.9 (0.6-1.3) mg/dL Estimated GFR (MDRD) 86 L (>89) Glucose 111 H (74-104) mg/dL POC Whole Bld Glucose 120 H (70 - 100) mg/dL Estimat Average Glucose (70-100) mg/dL Hemoglobin A1c % (4.27-6.07) % Calcium 8.3 L (8.5-10.3) mg/dL Phosphorus 2.4 L (2.5-5.0) mg/dL Magnesium 2.0 (1.7-2.3) mg/dL Total Bilirubin (0.2-1.0) mg/dL AST (10-42) IU/L ALT (10-60) IU/L Alkaline Phosphatase (42-121) IU/L Troponin I High Sens (2.3-19.7) ng/L C-React Prot High Sens mg/L Total Protein (6.4-8.9) g/dL Albumin (3.2-5.5) g/dL Globulin (2.1-4.2) g/dL Albumin/Globulin Ratio (1.0-2.2) Vitamin B12 (180-914) pg/mL Folate (5.90 - >24.8) ng/mL Nasal Screen MRSA (PCR) (NEGATIVE) 12/19/23 12/19/23 12/19/23 Range/Units 18:31 18:20 17:25 WBC (4.8-10.8) x10^3/uL RBC (4.70-6.10) 10^6/uL Hgb (14.0-18.0) g/dL Hct (42.0-52.0) % MCV (80.0-94.0) fL MCH (27.0-31.0) pg MCHC (32.0-36.0) g/dL RDW (12.0-15.0) % Plt Count (130-450) 10^3/uL MPV (7.4-11.4) fL Neut # (Auto) (1.5-6.6) 10^3/uL Lymph # (Auto) (1.5-3.5) 10^3/uL [place] # (Auto) (0.0-1.0) 10^3/uL Eos # (Auto) (0.0-0.7) 10^3/uL Baso # (Auto) (0.0-0.1) 10^3/uL Absolute Nucleated RBC x10^3/uL Total Counted Band Neuts % (Manual) (0 - 10) % Abnorm Lymph % (Manual) % Myelocytes % ( - 0) % Nucleated RBC % /100WBC Neutrophils # (Manual) (1.5-6.6) 10^3/uL Lymphocytes # (Manual) (1.5-3.5) 10^3/uL Monocytes # (Manual) (0.0-1.0) 10^3/uL Eosinophils # (Manual) (0-0.7) 10^3/uL Basophils # (Manual) (0-0.1) 10^3/uL Differential Comment Platelet Estimate (NORMAL) RBC Morph Micro Appear (NORMAL) D-Dimer (200.0-255.0) ng/mL Bld Gas Analysis Time 1733 Sample Site RIGHT RADIAL ABG pH 7.35 (7.35-7.45) ABG pCO2 62 H* (34-45) mmHg ABG pO2 166 H* (80-100) mmHg ABG HCO3 33.7 H (22.0-26.0) mmol/L ABG Total CO2 35.6 H (21.0-29.0) MMOL/L ABG O2 Saturation 99 H (94-98) % ABG Base Excess 6.5 H (-2.0-3.0) mmol/L Moi Test POSITIVE VBG pH (7.31-7.41) Ionized Calcium (1.15-1.33) mmol/L Respiration Rate 12 b/min O2 Delivery Device BiPAP O2 Liters/Min LPM FiO2 50.00 EPAP 6 cmH2O IPAP cmH2O Sodium (135-145) mmol/L Potassium (3.5-4.5) mmol/L Chloride (101-111) mmol/L Carbon Dioxide (21-32) mmol/L Anion Gap (6-13) BUN (6-20) mg/dL Creatinine (0.6-1.3) mg/dL Estimated GFR (MDRD) (>89) Glucose (74-104) mg/dL POC Whole Bld Glucose 123 H (70 - 100) mg/dL Estimat Average Glucose (70-100) mg/dL Hemoglobin A1c % (4.27-6.07) % Calcium (8.5-10.3) mg/dL Phosphorus (2.5-5.0) mg/dL Magnesium (1.7-2.3) mg/dL Total Bilirubin (0.2-1.0) mg/dL AST (10-42) IU/L ALT (10-60) IU/L Alkaline Phosphatase (42-121) IU/L Troponin I High Sens (2.3-19.7) ng/L C-React Prot High Sens mg/L Total Protein (6.4-8.9) g/dL Albumin (3.2-5.5) g/dL Globulin (2.1-4.2) g/dL Albumin/Globulin Ratio (1.0-2.2) Vitamin B12 (180-914) pg/mL Folate (5.90 - >24.8) ng/mL Nasal Screen MRSA (PCR) NEGATIVE (NEGATIVE) 12/19/23 12/19/23 12/19/23 Range/Units 14:45 12:45 12:45 WBC (4.8-10.8) x10^3/uL RBC (4.70-6.10) 10^6/uL Hgb (14.0-18.0) g/dL Hct (42.0-52.0) % MCV (80.0-94.0) fL MCH (27.0-31.0) pg MCHC (32.0-36.0) g/dL RDW (12.0-15.0) % Plt Count (130-450) 10^3/uL MPV (7.4-11.4) fL Neut # (Auto) (1.5-6.6) 10^3/uL Lymph # (Auto) (1.5-3.5) 10^3/uL [place] # (Auto) (0.0-1.0) 10^3/uL Eos # (Auto) (0.0-0.7) 10^3/uL Baso # (Auto) (0.0-0.1) 10^3/uL Absolute Nucleated RBC x10^3/uL Total Counted Band Neuts % (Manual) (0 - 10) % Abnorm Lymph % (Manual) % Myelocytes % ( - 0) % Nucleated RBC % /100WBC Neutrophils # (Manual) (1.5-6.6) 10^3/uL Lymphocytes # (Manual) (1.5-3.5) 10^3/uL Monocytes # (Manual) (0.0-1.0) 10^3/uL Eosinophils # (Manual) (0-0.7) 10^3/uL Basophils # (Manual) (0-0.1) 10^3/uL Differential Comment Platelet Estimate (NORMAL) RBC Morph Micro Appear (NORMAL) D-Dimer 266.7 H (200.0-255.0) ng/mL Bld Gas Analysis Time 14:56 Sample Site RIGHT RADIAL ABG pH 7.34 L (7.35-7.45) ABG pCO2 70 H* (34-45) mmHg ABG pO2 61 L (80-100) mmHg ABG HCO3 36.6 H (22.0-26.0) mmol/L ABG Total CO2 38.8 H (21.0-29.0) MMOL/L ABG O2 Saturation 88 L (94-98) % ABG Base Excess 8.5 H (-2.0-3.0) mmol/L Moi Test POSITIVE VBG pH (7.31-7.41) Ionized Calcium (1.15-1.33) mmol/L Respiration Rate b/min O2 Delivery Device NASAL CANNULA O2 Liters/Min 3.00 LPM FiO2 EPAP cmH2O IPAP cmH2O Sodium (135-145) mmol/L Potassium (3.5-4.5) mmol/L Chloride (101-111) mmol/L Carbon Dioxide (21-32) mmol/L Anion Gap (6-13) BUN (6-20) mg/dL Creatinine (0.6-1.3) mg/dL Estimated GFR (MDRD) (>89) Glucose (74-104) mg/dL POC Whole Bld Glucose (70 - 100) mg/dL Estimat Average Glucose (70-100) mg/dL Hemoglobin A1c % (4.27-6.07) % Calcium (8.5-10.3) mg/dL Phosphorus (2.5-5.0) mg/dL Magnesium (1.7-2.3) mg/dL Total Bilirubin (0.2-1.0) mg/dL AST (10-42) IU/L ALT (10-60) IU/L Alkaline Phosphatase (42-121) IU/L Troponin I High Sens (2.3-19.7) ng/L C-React Prot High Sens 82.40 mg/L Total Protein (6.4-8.9) g/dL Albumin (3.2-5.5) g/dL Globulin (2.1-4.2) g/dL Albumin/Globulin Ratio (1.0-2.2) Vitamin B12 (180-914) pg/mL Folate (5.90 - >24.8) ng/mL Nasal Screen MRSA (PCR) (NEGATIVE) 12/19/23 12/19/23 Range/Units 12:45 12:45 WBC (4.8-10.8) x10^3/uL RBC (4.70-6.10) 10^6/uL Hgb (14.0-18.0) g/dL Hct (42.0-52.0) % MCV (80.0-94.0) fL MCH (27.0-31.0) pg MCHC (32.0-36.0) g/dL RDW (12.0-15.0) % Plt Count (130-450) 10^3/uL MPV (7.4-11.4) fL Neut # (Auto) 10.5 H (1.5-6.6) 10^3/uL Lymph # (Auto) 0.1 L (1.5-3.5) 10^3/uL [place] # (Auto) 0.8 (0.0-1.0) 10^3/uL Eos # (Auto) 0.0 (0.0-0.7) 10^3/uL Baso # (Auto) 0.0 (0.0-0.1) 10^3/uL Absolute Nucleated RBC 0.02 x10^3/uL Total Counted Band Neuts % (Manual) (0 - 10) % Abnorm Lymph % (Manual) % Myelocytes % ( - 0) % Nucleated RBC % 0.2 /100WBC Neutrophils # (Manual) (1.5-6.6) 10^3/uL Lymphocytes # (Manual) (1.5-3.5) 10^3/uL Monocytes # (Manual) (0.0-1.0) 10^3/uL Eosinophils # (Manual) (0-0.7) 10^3/uL Basophils # (Manual) (0-0.1) 10^3/uL Differential Comment Platelet Estimate (NORMAL) RBC Morph Micro Appear 1+ ANISOCYTOSIS (NORMAL) D-Dimer (200.0-255.0) ng/mL Bld Gas Analysis Time Sample Site ABG pH (7.35-7.45) ABG pCO2 (34-45) mmHg ABG pO2 (80-100) mmHg ABG HCO3 (22.0-26.0) mmol/L ABG Total CO2 (21.0-29.0) MMOL/L ABG O2 Saturation (94-98) % ABG Base Excess (-2.0-3.0) mmol/L Moi Test VBG pH (7.31-7.41) Ionized Calcium (1.15-1.33) mmol/L Respiration Rate b/min O2 Delivery Device O2 Liters/Min LPM FiO2 EPAP cmH2O IPAP cmH2O Sodium 141 (135-145) mmol/L Potassium 3.2 L (3.5-4.5) mmol/L Chloride 97 L (101-111) mmol/L Carbon Dioxide 36 H (21-32) mmol/L Anion Gap 8.0 (6-13) BUN 24 H (6-20) mg/dL Creatinine 1.2 (0.6-1.3) mg/dL Estimated GFR (MDRD) 62 L (>89) Glucose 106 H (74-104) mg/dL POC Whole Bld Glucose (70 - 100) mg/dL Estimat Average Glucose (70-100) mg/dL Hemoglobin A1c % (4.27-6.07) % Calcium 9.2 (8.5-10.3) mg/dL Phosphorus (2.5-5.0) mg/dL Magnesium 1.8 (1.7-2.3) mg/dL Total Bilirubin 0.3 (0.2-1.0) mg/dL AST 12 (10-42) IU/L ALT 14 (10-60) IU/L Alkaline Phosphatase 50 (42-121) IU/L Troponin I High Sens (2.3-19.7) ng/L C-React Prot High Sens mg/L Total Protein 6.6 (6.4-8.9) g/dL Albumin 3.6 (3.2-5.5) g/dL Globulin 3.0 (2.1-4.2) g/dL Albumin/Globulin Ratio 1.2 (1.0-2.2) Vitamin B12 (180-914) pg/mL Folate (5.90 - >24.8) ng/mL Nasal Screen MRSA (PCR) (NEGATIVE) - Diagnostic Imaging Diagnostic Imaging Results: positive: Final report reviewed - Other Results/Comments Other Results/Comments: EKG done today. I interpreted it. EKG showed; NSR, rate 94, RA enlargement, LVH voltage. Since EKG from previous day, tachycardia has resolved. Assessment/Plan - Problem List (1) Shock Impression: BP was elevated this morning with tachycardia, HR 150. He got Lopressor iv slow push. An echo was ordered. He then developed respiratory acidosis and needed to be intubated (see #2). While getting anesthesia for intubation, he dropped his blood pressure to 60. A saline bolus of 500 cc was given. BP dereck to 80. And the Echo was made STAT. I ordered Levophed to keep MAP at 60-65 Labs were ordered to evaluate for an WV and have come back with hs-troponin 500>> 1100 EKG was done which does not show ST elevations or any significant ischemic changes. Therefore I am considering the troponin elevation to be a type II WV. His Echo was done and shows a dilated RV with depressed RV function and LV EF 45-50%, normal LV size, not volume depleted. Labs were all reviewed. His white blood count did increase from 11 yesterday to 17 today but he has been on IV steroids. Lactic Acid came back normal. BUN/creat mildly elevcated at 22/0.9 today. Records were obtained from his hospitalization at [facility], which I reviewed. He was there from 11/19/23 thru 12/06/23. He was being treated for foot cellulitis, they considered poss osteomyelitis and he developed pulmonary edema and a pneumonia while there, and completed antibx. [facility] records state that he is on Prednisone 40 mg daily for his asthma. Therefore, this low BP could be Addisonian crisis. He was started on Hydrocortisone 100 mg iv TID and Solu-Medrol was stopped. [facility] records also state he was on TMP-Sulfa to prevent pneumocystis, since he was on Prednisone > 30 mg daily dose Blood cultures are negative to date. We are awaiting sputum and urine culture results Plan: Remain in the ICU, intubated on the vent, he is in critical condition. Continue gentle IV fluids and start NG feeds for nutrition and hydration Continue Levophed, titrating to keep MAP 60-65 Empiric antibiotics as recommended by ID Dr Lewis, for his infections, pneumonia and poss osteomyelitis. We are using IV Vanco, IV cefepime and IV doxycycline. The patient was getting a medication therefore I will also put him CRITICAL CARE TIME SPENT: 120 MINUTES (CHART REVIEW, RECORDS REVIEW, EVALUATING PATIENT, REEVALUATING PATIENT, ARRANGING FOR INTUBATION, REVIEWING LABS, and ADJUSTING MEDS AND CHANGING ALL MEDS TO iv FORM) (2) Acute respiratory failure with hypoxia and hypercapnia Conclusion/Plan: Likely caused by his pneumonia on top of an asthma exacerbation in a patient who has sleep apnea and uses CPAP, per Hx. He required BiPAP since admission. ABG this morning showed respiratory acidosis and hypoxia Plan: Patient required intubation this morning Follow ABG to adjust vent setting Treat the underlying pneumonia and asthma exacerbation (3) Pneumonia Conclusion/Plan: Since he was hospitalized and has been living at a correction facility, he was started on antibx for healthcare-associated pneumonia. Because of worsening respiratory distress, he was intubated this morning Obtain spt culture Await blood cx results I will order the antibiotics that were advised by Dr. Kearney of infectious dis ease: IV Vanco, cefepime and Doxy Start probiotics when he is awake and can safely swallow Qualifiers: Pneumonia type: due to unspecified organism Laterality: bilateral Lung location: lower lobe of lung Qualified Code(s): J18.9 - Pneumonia, unspecified organism (4) Asthma exacerbation Conclusion/Plan: Likely due to this pneumonia. He carries a history of chronic asthma Plan: Cont DuoNebs 4 times daily scheduled. If the tachycardia persists, he may need his DuoNebs switched to Xopenex. Cont Pulmicort nebulized twice daily Cont iv steroids Continue montelukast at bedtime (5) On mechanically assisted ventilation Plan: Treat the underlying pneumonia and asthma Follow ABG to adjust settings IV propofol started for sedation on the vent. Later today he needed a second sedative and a low-dose of IV fentanyl drip is ordered (6) Cor pulmonale As per today's Echo result Plan: This is probably secondary to asthma and exacerbations and this pneumonia and the recent pneumonia he had at [facility]. Alternatively he could have had a pure RV WV, given the elevation of troponins today He will need IV fluids in order to maintain good preload of the LV and good cardiac output Plan: Continue with IV fluids in addition to the new NG tube feeding plan (7) Type II WV Labs were ordered to evaluate for an WV and have come back with hs-troponin 50 0>> 1100 EKG was done which does not show ST elevations or any significant ischemic changes. Therefore I am considering the troponin elevation to be a type II WV. His Echo was done today and shows RV dilation with depressed RV function and LVEF is 45 to 50% Plan: Follow his troponin till it peaks and starts dropping Will place this patient on 48 hours of therapeutic anticoagulants. Will try to maintain maps of 60-65 for good coronary perfusion I planned to give him aspirin 324 mg today then 81 daily but he carries an aspirin allergy. Will therefore give Plavix now and daily Will check lipids and treat per guidelines Will start beta-ya when his blood pressure improves (8) Altered mental status Conclusion/Plan: Patient was obtunded in the ER, felt to be from hypoxia or CO2 narcosis or infction. Head CT was done in the ER that did not show acute finding. Records were obtained today from his hospitalization at [facility], which I reviewed, and there was no description of confusion or delirium. There was no description of alcohol abuse to suggest that this is alcohol withdrawal delirium. He was slight more awake when he first arrived in ICU, having gotten BIPAP in ER but he had a very poor memory, he did not know where he is, he was only oriented to self. Overnight last night he was more agitated, pulled out his IV, pulled out his IVs, was trying to climb out of bed. Telemedicine night doctor ordered upper extremity soft restraints and as needed benzos. After again sleeping comfortably on BiPAP he is again agitated this morning. Along with this he required intubation therefore he is currently on IV sedatives while intubated on the vent Plan: Continue to treat his various diagnoses and give supportive care (9) Osteomyelitis Conclusion/Plan: As per the 12/19/23 [facility] Wound clinic note by Dr Brown. Dr. Brown performed debridement of all his heel ulcers and sent off a bone sample for culture. Records were obtained from his hospitalization at [facility], which I reviewed. He was there from 11/19/23 thru 12/06/23. He was being treated for foot cellulitis, and they considered poss osteomyelitis On exam, he has amputated toes. Plan: Appreciate Dr. Kearney of infectious disease input; she spoke to our ED provider. Await blood culture results Await (outpatient) bone sample culture results Cont the antibiotics that were recommended by Dr. Kearney: IV Vanco, IV cefepime, IV Doxy I will start Lovenox for DVT prophylaxis and Type II WV treatment Qualifiers: Osteomyelitis type: other chronic Osteomyelitis location: multiple sites Qualified Code(s): M86.69 - Other chronic osteomyelitis, multiple sites (10) DM type 2 (diabetes mellitus, type 2) Conclusion/Plan: His A1c came backc at His reconciled med list does not show any diabetic medications whatsoever. Records were obtained from his hospitalization at [facility], which I reviewed. He was supposed to be on Lantus BID and sliding scale insulin coverage. Plan: Will place NG tube and start NG tube feeds, managed by Nutrition Obtain POC fingerstick checks every 6 hours and continue sliding scale insulin coverage, and hypoglycemia protocol (11) EN (obstructive sleep apnea) Conclusion/Plan: As per his records. Plan: Before he was intubated today, RT tried to reach his son, with whom he lives, to bring in the home CPAP device (12) Chronic pain I reviewed his records from [facility] inpatient stay and he was on oxycodone and methadone for chronic pain management Plan: I have added fentanyl drip to his sedative regimen while he is intubated and on the vent
[2023-12-20] MEDS: ENOXAPARIN 40 MG/0.4 ML SYRINGE SUBQ SCH (14:21)
[2023-12-20] MEDS: INSULIN REGULAR HUMAN 300 UNIT/3 ML VIAL SUBQ SCH (14:34)
[2023-12-20 15:00] LABS: ABG PCO2 53 mmHg (34-45); ABG PO2 84 mmHg (80-100)
[2023-12-20 15:01] LABS: ABG OXYGEN SATURATION 96 % (94-98); ABG TCO2 33.6 MMOL/L (21.0-29.0); ALLEN TEST POSITIVE
[2023-12-20 15:02] LABS: ABG MODE OF VENTILATION ASSIST/CONTROL; ABG RESPIRATORY RATE 18 b/min
[2023-12-20] MEDS: PROPOFOL 1000 MG/100 ML 1,000 MG/100 ML BOTTLE IV SCH (15:07)
--- NOTE | 2023-12-20 15:14 | PHARMACY PROGRESS NOTE ---
- Best Possible Medication History Admit Date and Time: 12/19/23 1733 Processed by: Pharmacy Medications reviewed in ED?: Yes Medication History completed: Yes Patient Interview: Pt unable to participate Secondary Source(s): Pharmacy records, Insurance records, Facility MAR as ONLY source As the person ultimately responsible for medication therapy, providers are able to order a medication from an existing home medication list in [facility] via the "Reconcile Routine" prior to Confirmation of that medication by director sales support. Such practice is discouraged except when the physician, in their clinical judgment, deems that a medical need exists for a medication without regard to previous use.
[2023-12-20] MEDS: HYDROCORTISONE SUCCINATE 100 MG/2 ML VIAL IVP SCH (15:30)
--- NOTE | 2023-12-20 16:12 | PHARMACY PROGRESS NOTE ---
- Therapy Status Vancomycin regimen day #: 2 Therapy status: Awaiting steady state Basis for treatment: Empirical Treatment indication: ACUTE RESPIRATORY FAILURE, PNA, OSTEO ([facility] ID FOLLOWING) Trough goal: 400-600 Concurrent antibiotics: CEFEPIME, DOXYCYCLINE - POP Risk Risk level for Acute Kidney Injury: High Acute Kidney Injury risk factors: Other nephrotoxic agents, Duration >7 days, Goal trough >15, Admission to ICU (PATIENT FOLLOWED BY [facility] ID WHO RECOMMENDED CURRENT ABX REGIMEN) - Monitoring and Recommendation Clinical response to treatment: I&O Previous 24 hours 12/18/23 12/19/23 12/20/23 23:59 23:59 23:59 Intake Total 850 Balance 850 Lab Results 12/19/23 12:45 BUN 24 H Creatinine 1.2 Estimated GFR (MDRD) 62 L Cultures 12/19/23 13:43 Blood - Left Hand Blood Culture - Preliminary NO GROWTH AFTER 1 DAY 12/19/23 13:40 Blood - Right Hand Blood Culture - Preliminary NO GROWTH AFTER 1 DAY
[2023-12-20] MEDS ORDERED: SODIUM CHLORIDE 0.9% 250 ML IV ONE ×3 (18:01→18:02)
[2023-12-20] MEDS ORDERED: fentaNYL 2,500 MCG/250 ML 2,500 MCG/250 ML BAG IV ONE (18:08)
[2023-12-20] MEDS: fentaNYL 2,500 MCG in SODIUM CHLORIDE 0.9% 200 ML IV SCH (18:12)
[2023-12-20] MEDS: CLOPIDOGREL 75 MG TABLET PO SCH (18:57)
[2023-12-20] MEDS: ENOXAPARIN 80 MG/0.8 ML SYRINGE SUBQ SCH (21:13)
[2023-12-21 04:58] LABS: BASOPHILS % (AUTO) 0.2 %; HCT - HEMATOCRIT 31.2 % (42.0-52.0); HGB - HEMOGLOBIN 9.2 g/dL (14.0-18.0); LYMPHOCYTES # (AUTO) 0.2 10^3/uL (1.5-3.5); LYMPHOCYTES % (AUTO) 1.8 %; MEAN CORPUSCULAR HGB CONC 29.5 g/dL (32.0-36.0); MEAN CORPUSCULAR VOLUME 95.1 fL (80.0-94.0); MONOCYTES # (AUTO) 0.4 10^3/uL (0.0-1.0); MONOCYTES % (AUTO) 3.3 %; NEUTROPHILS # (AUTO) 12.6 10^3/uL (1.5-6.6); NEUTROPHILS % (AUTO) 93.8 %; NRBC ABSOLUTE COUNT (AUTO) 0.02 x10^3/uL; NUCLEATED RED BLOOD CELLS AUTO 0.1 /100WBC; PLT - PLATELET COUNT 285 10^3/uL (130-450); RED BLOOD COUNT 3.28 10^6/uL (4.70-6.10); RED CELL DISTRIBUTION WIDTH 15.3 % (12.0-15.0); WHITE BLOOD COUNT 13.4 x10^3/uL (4.8-10.8)
[2023-12-21 05:02] LABS: CALCIUM, IONIZED 1.1 mmol/L (1.15-1.33); VBG PH 7.487 (7.31-7.41)
[2023-12-21 05:10] LABS: CALCIUM 8.2 mg/dL (8.5-10.3); CREATININE 0.8 mg/dL (0.6-1.3); PHOSPHORUS 2.2 mg/dL (2.5-5.0); POTASSIUM 3.7 mmol/L (3.5-4.5)
[2023-12-21] MEDS: CALCIUM GLUC 1,000MG/50ML-NACL 1,000 MG/50 ML BAG IV ONE (06:19)
--- NOTE | 2023-12-21 09:41 | ANESTHESIA PROCEDURE NOTE ---
Anesth Central Line Template - Central Line Central Line Preparation: Unable to obtain consent, Time out completed, Ultra sound used, Sterile prep and drape Central line location: Right IJ Central line type: Triple lumen Central line catheter tip site resides: Superior vena cava (SVC) Central line aftercare: Chlorhexidine disc placed, Secured, Placement confirmed, No pneumothorax, No complications, Bundle checklist complete, Pt tolerated well (intubated/sedated), Other Other Info/Details: 20cm triple to 18cm, secured. Ports easily aspirate/flush blood/saline
--- NOTE | 2023-12-21 09:55 | XRAY Report ---
PROCEDURE: Chest for Line Placement INDICATIONS: central line TECHNIQUE: One view of the chest was acquired. COMPARISON: 12/19/2023 FINDINGS: Surgical changes and devices: Partially seen cervical fusion hardware. ET tube terminates in the low er trachea. Enteric tube is beyond the [id number], below the diaphragm. A central line terminates in the SVC. Lungs and pleura: Increased bilateral diffuse lung disease, particularly in the upper lungs. This is increased. No pleural effusions. Mediastinum: Unchanged cardia mediastinal contours, and aortic calcifications. Bones and chest wall: Degenerative changes. IMPRESSION: Central line terminates in SVC. Enteric tube terminates beyond the [id number] below the diaphragm. ET tube terminates in the lower trachea. Increased diffuse lung disease, particularly in the upper and mid sarah. Consider future imaging surve illance to assess for resolution. Reviewed by: Himanshu Fitzpatrick MD on 12/21/2023 9:54 AM PST Approved by: Himanshu Fitzpatrick MD on 12/21/2023 9:54 AM PST Station ID: [id number]
[2023-12-21] MEDS: POTASSIUM PHOSPHATE 15 MMOL in SODIUM CHLORIDE 0.9% 250 ML IV ONE (09:59)
[2023-12-21] MEDS: fentaNYL 2,500 MCG/250 ML 2,500 MCG/250 ML BAG IV SCH (09:59)
[2023-12-21 10:55] LABS: CALCIUM, IONIZED 1.17 mmol/L (1.15-1.33); VBG PH 7.383 (7.31-7.41)
[2023-12-21 16:38] LABS: PHOSPHORUS 2.7 mg/dL (2.5-5.0); POTASSIUM 4.1 mmol/L (3.5-4.5)
[2023-12-21] MEDS: POTASSIUM CHLOR 20 MEQ/100 ML 20 MEQ/100 ML BAG IV ONE (16:40)
--- NOTE | 2023-12-21 16:45 | PROVIDER PROGRESS NOTE ---
Subjective - Subjective Pt reports feeling: No change (He remains intubated since yesterday, on 2 sedative drips, appears comfortable) Objective - Vital Signs/Intake & Output Vital Signs: Vital Signs Temp Pulse Pulse Resp BP Pulse Ox 12/21/23 16:00 75 18 115/66 98 12/21/23 15:16 74 12 12/21/23 15:00 72 18 97/63 97 12/21/23 14:00 77 15 117/68 98 12/21/23 13:30 36.6 C 12/21/23 13:04 78 12/21/23 13:00 78 18 102/69 97 Intake & Output: Intake & Output 12/18/23 12/19/23 12/20/23 12/21/23 23:59 23:59 23:59 23:59 Intake Total 2128 2880.067 3200.886 Output Total 890 1381 543 Balance 1238 7826.236 8538.886 - Objective General Appearance: positive: Other (Is sedated and intubated) Eyes Bilateral: positive: No lid inflammation ENT: positive: No signs of dehydration, Other (Poor dentition. ET tube and OG tube in place) Neck: positive: Nml inspection Respiratory: positive: Rales, Rhonchi (Both bases) Cardiovascular: positive: Regular rate & rhythm, No murmur Abdomen: positive: No distention Skin: positive: Warm, Dry Extremities: positive: Other (1+ pedal edema, center left toe missing, right toes are bandaged, both feet are bandaged) Neurologic/Psychiatric: positive: Other (Sedated, on IV drips) - Lab Results Fish Bones: 12/21/23 04:27 12/22/23 04:28 Other Labs: Lab Results x24hrs 12/21/23 12/21/23 12/21/23 Range/Units 12:03 10:40 05:56 WBC (4.8-10.8) x10^3/uL RBC (4.70-6.10) 10^6/uL Hgb (14.0-18.0) g/dL Hct (42.0-52.0) % MCV (80.0-94.0) fL MCH (27.0-31.0) pg MCHC (32.0-36.0) g/dL RDW (12.0-15.0) % Plt Count (130-450) 10^3/uL MPV (7.4-11.4) fL Neut # (Auto) (1.5-6.6) 10^3/uL Lymph # (Auto) (1.5-3.5) 10^3/uL [place] # (Auto) (0.0-1.0) 10^3/uL Eos # (Auto) (0.0-0.7) 10^3/uL Baso # (Auto) (0.0-0.1) 10^3/uL Absolute Nucleated RBC x10^3/uL Nucleated RBC % /100WBC VBG pH 7.383 (7.31-7.41) Ionized Calcium 1.17 (1.15-1.33) mmol/L Sodium (135-145) mmol/L Potassium (3.5-4.5) mmol/L Chloride (101-111) mmol/L Carbon Dioxide (21-32) mmol/L Anion Gap (6-13) BUN (6-20) mg/dL Creatinine (0.6-1.3) mg/dL Estimated GFR (MDRD) (>89) Glucose (74-104) mg/dL POC Whole Bld Glucose 146 H 140 H (70 - 100) mg/dL Calcium (8.5-10.3) mg/dL Phosphorus (2.5-5.0) mg/dL Magnesium (1.7-2.3) mg/dL Prealbumin (17-34) mg/dL Triglycerides (48-352) mg/dL 12/21/23 12/21/23 12/21/23 Range/Units 04:27 04:27 04:27 WBC (4.8-10.8) x10^3/uL RBC (4.70-6.10) 10^6/uL Hgb (14.0-18.0) g/dL Hct (42.0-52.0) % MCV (80.0-94.0) fL MCH (27.0-31.0) pg MCHC (32.0-36.0) g/dL RDW (12.0-15.0) % Plt Count (130-450) 10^3/uL MPV (7.4-11.4) fL Neut # (Auto) (1.5-6.6) 10^3/uL Lymph # (Auto) (1.5-3.5) 10^3/uL [place] # (Auto) (0.0-1.0) 10^3/uL Eos # (Auto) (0.0-0.7) 10^3/uL Baso # (Auto) (0.0-0.1) 10^3/uL Absolute Nucleated RBC x10^3/uL Nucleated RBC % /100WBC VBG pH 7.487 H (7.31-7.41) Ionized Calcium 1.10 L (1.15-1.33) mmol/L Sodium (135-145) mmol/L Potassium (3.5-4.5) mmol/L Chloride (101-111) mmol/L Carbon Dioxide (21-32) mmol/L Anion Gap (6-13) BUN (6-20) mg/dL Creatinine (0.6-1.3) mg/dL Estimated GFR (MDRD) (>89) Glucose (74-104) mg/dL POC Whole Bld Glucose (70 - 100) mg/dL Calcium (8.5-10.3) mg/dL Phosphorus (2.5-5.0) mg/dL Magnesium (1.7-2.3) mg/dL Prealbumin 11 L (17-34) mg/dL Triglycerides 176 (48-352) mg/dL 12/21/23 12/21/23 12/21/23 Range/Units 04:27 04:27 00:01 WBC 13.4 H (4.8-10.8) x10^3/uL RBC 3.28 L (4.70-6.10) 10^6/uL Hgb 9.2 L (14.0-18.0) g/dL Hct 31.2 L (42.0-52.0) % MCV 95.1 H (80.0-94.0) fL MCH 28.0 (27.0-31.0) pg MCHC 29.5 L (32.0-36.0) g/dL RDW 15.3 H (12.0-15.0) % Plt Count 285 (130-450) 10^3/uL MPV 9.0 (7.4-11.4) fL Neut # (Auto) 12.6 H (1.5-6.6) 10^3/uL Lymph # (Auto) 0.2 L (1.5-3.5) 10^3/uL [place] # (Auto) 0.4 (0.0-1.0) 10^3/uL Eos # (Auto) 0.0 (0.0-0.7) 10^3/uL Baso # (Auto) 0.0 (0.0-0.1) 10^3/uL Absolute Nucleated RBC 0.02 x10^3/uL Nucleated RBC % 0.1 /100WBC VBG pH (7.31-7.41) Ionized Calcium (1.15-1.33) mmol/L Sodium 144 (135-145) mmol/L Potassium 3.7 (3.5-4.5) mmol/L Chloride 109 (101-111) mmol/L Carbon Dioxide 29 (21-32) mmol/L Anion Gap 6.0 (6-13) BUN 21 H (6-20) mg/dL Creatinine 0.8 (0.6-1.3) mg/dL Estimated GFR (MDRD) 99 (>89) Glucose 146 H (74-104) mg/dL POC Whole Bld Glucose 136 H (70 - 100) mg/dL Calcium 8.2 L (8.5-10.3) mg/dL Phosphorus 2.2 L (2.5-5.0) mg/dL Magnesium 2.0 (1.7-2.3) mg/dL Prealbumin (17-34) mg/dL Triglycerides (48-352) mg/dL 12/20/23 12/20/23 Range/Units 18:06 10:11 WBC (4.8-10.8) x10^3/uL RBC (4.70-6.10) 10^6/uL Hgb (14.0-18.0) g/dL Hct (42.0-52.0) % MCV (80.0-94.0) fL MCH (27.0-31.0) pg MCHC (32.0-36.0) g/dL RDW (12.0-15.0) % Plt Count (130-450) 10^3/uL MPV (7.4-11.4) fL Neut # (Auto) (1.5-6.6) 10^3/uL Lymph # (Auto) (1.5-3.5) 10^3/uL [place] # (Auto) (0.0-1.0) 10^3/uL Eos # (Auto) (0.0-0.7) 10^3/uL Baso # (Auto) (0.0-0.1) 10^3/uL Absolute Nucleated RBC x10^3/uL Nucleated RBC % /100WBC VBG pH (7.31-7.41) Ionized Calcium (1.15-1.33) mmol/L Sodium (135-145) mmol/L Potassium (3.5-4.5) mmol/L Chloride (101-111) mmol/L Carbon Dioxide (21-32) mmol/L Anion Gap (6-13) BUN (6-20) mg/dL Creatinine (0.6-1.3) mg/dL Estimated GFR (MDRD) (>89) Glucose (74-104) mg/dL POC Whole Bld Glucose 167 H 135 H (70 - 100) mg/dL Calcium (8.5-10.3) mg/dL Phosphorus (2.5-5.0) mg/dL Magnesium (1.7-2.3) mg/dL Prealbumin (17-34) mg/dL Triglycerides (48-352) mg/dL Assessment/Plan - Problem List (1) Acute respiratory failure with hypoxia and hypercapnia Impression: Likely caused by his pneumonia on top of an asthma exacerbation in a patient who has sleep apnea and uses CPAP, per Hx. He first required BiPAP at time of admission.His ABG then showed respiratory acidosis and hypoxia yesterday and he was intubated yesterday Plan: Follow ABG to adjust vent setting Treat the underlying pneumonia and asthma exacerbation (2) Pneumonia Conclusion/Plan: Since he was hospitalized at [facility], then was living at a halfway facility, he was started on antibx for healthcare-associated pneumonia. Because of worsening respiratory distress, he was intubated Plan: Await spt culture and blood cx results Cont antibiotics that were advised by Dr. Kearney of infectious disease: IV Vanco, cefepime and Doxy Start probiotics via ng tube Qualifiers: Pneumonia type: due to unspecified organism Laterality: bilateral Lung location: lower lobe of lung Qualified Code(s): J18.9 - Pneumonia, unspecified organism (3) Asthma exacerbation Conclusion/Plan: Likely due to this pneumonia. He carries a history of chronic asthma Plan: Cont DuoNebs 4 times daily scheduled. Cont Pulmicort nebulized twice daily Cont iv steroids Continue montelukast at bedtime (4) On mechanically assisted ventilation Plan: Treat the underlying pneumonia and asthma Follow ABG to adjust settings IV propofol and IV fentanyl drips ordered for sedation while on the vent (5) Cor pulmonale As per Echo result Plan: This is probably secondary to asthma and exacerbations and this pneumonia and the recent pneumonia he had at [facility]. Alternatively he could have had a pure RV HI, given the elevation of troponins He will need IV fluids in order to maintain good preload of the LV and good cardiac output Plan: Continue with gentle IV fluids in addition to the new NG tube feeding plan (6) Type II HI Labs were ordered to evaluate for an HI and showed hs-troponin 500>> 1100 EKG was done which does not show ST elevations or any significant ischemic changes. Therefore I am considering the troponin elevation to be a type II HI. His Echo was done today and shows RV dilation with depressed RV function and LVEF is 45 to 50% Plan: Follow his troponin till it peaks and starts dropping Will place this patient on 48 hours of therapeutic anticoagulants. Will try to maintain maps of 60-65 for good coronary perfusion I planned to give him aspirin 324 mg today then 81 daily but he carries an aspirin allergy. Will therefore give Plavix now and daily Will check lipids and treat per guidelines Cont beta-ya when his blood pressure improves (7) Osteomyelitis Conclusion/Plan: As per the 12[place]19/[place] [facility] by Dr Brown. Dr. Brown performed debridement of all his heel ulcers and sent off a bone sample for culture. Records were obtained from his hospitalization at [facility], which I reviewed. He was there from 11/19/23 thru 12/06/23. He was being treated for foot cellulitis, and they considered poss osteomyelitis On exam, he has amputated toes. Plan: Appreciate Dr. Kearney of infectious disease input; she spoke to our ED provider. Await blood culture results Await (outpatient) bone sample culture results Cont the antibiotics that were recommended by Dr. Kearney: IV Vanco, IV cefepime, IV Doxy I will start Lovenox BID for DVT prophylaxis and Type II HI treatment Qualifiers: Osteomyelitis type: other chronic Osteomyelitis location: multiple sites Qualified Code(s): M86.69 - Other chronic osteomyelitis, multiple sites (8) DM type 2 (diabetes mellitus, type 2) Conclusion/Plan: His A1c came backc at His reconciled med list does not show any diabetic medications whatsoever. Records were obtained from his hospitalization at [facility], which I reviewed. He was supposed to be on Lantus BID and sliding scale insulin coverage. Plan: Will place NG tube and start NG tube feeds, managed by Nutrition Obtain POC fingerstick checks every 6 hours and continue sliding scale insulin coverage, and hypoglycemia protocol (9) EN (obstructive sleep apnea) Conclusion/Plan: As per his records. Plan: Before he was intubated, RT tried to reach his son, with whom he lives, to bring in the home CPAP device (10) Chronic pain I reviewed his records from [facility] inpatient stay and he was on oxycodone and methadone for chronic pain management Plan: I have added fentanyl drip to his sedative regimen while he is intubated and on the vent (11) Shock Impression: RESOLVED. Levophed has been weaned to off. Yesterday while getting anesthesia for intubation, he dropped his blood pressure to 60. He neded Levophed started. Labs showed hs-troponin 500>> 1100 His white blood count did increase but Lactic Acid came back normal. BUN/creat showed prerenal azotemia yesterday He had been on Prednisone 40 mg po daily, therefore, he was started on Hydrocortisone 100 mg iv TID for probable Addisonian crisis Blood cultures are negative to date. We are awaiting sputum and urine culture results Plan: Remain in the ICU, intubated on the vent, he remains in critical condition. Continue gentle IV fluids and start NG feeds for nutrition and hydration Cont empiric antibiotics as recommended by ID Dr Lewis, for his infections (pneumonia and poss osteomyelitis). We are using IV Vanco, IV cefepime and IV doxycycline.
[2023-12-21] MEDS: DEXTROSE 5%-0.9% NACL 1,000 ML IV SCH (16:55)
[2023-12-22] MEDS: IPRATROPIUM/ALBUTEROL 3 ML NEB INH PRN (02:20)
[2023-12-22] MEDS: SODIUM CHLORIDE FLUSH 0.9% 10 ML SYRINGE IVP PRN (04:31)
[2023-12-22 05:31] LABS: ALBUMIN 2.5 g/dL (3.2-5.5); BILIRUBIN,TOTAL 0.2 mg/dL (0.2-1.0); CALCIUM 8.7 mg/dL (8.5-10.3); CREATININE 0.7 mg/dL (0.6-1.3); MAGNESIUM 2.2 mg/dL (1.7-2.3); POTASSIUM 4.4 mmol/L (3.5-4.5)
[2023-12-22 05:35] LABS: CALCIUM, IONIZED 1.21 mmol/L (1.15-1.33); VBG PH 7.317 (7.31-7.41)
[2023-12-22 06:09] LABS: ABG BASE EXCESS 2.5 mmol/L (-2.0-3.0); ABG PCO2 55 mmHg (34-45); ABG PH 7.34 (7.35-7.45); ABG PO2 83 mmHg (80-100); ABG TCO2 30.7 MMOL/L (21.0-29.0)
[2023-12-22 06:10] LABS: ABG MODE OF VENTILATION ASSIST/CONTROL; ABG OXYGEN SATURATION 95 % (94-98); ABG RESPIRATORY RATE 12 b/min; ALLEN TEST POSITIVE
[2023-12-22] MEDS: NEUTRA-PHOS 250 MG TABLET PO SCH (06:42)
[2023-12-22 08:38] LABS: ABG PCO2 54 mmHg (34-45); ABG PH 7.35 (7.35-7.45)
[2023-12-22 08:39] LABS: ABG BASE EXCESS 2.8 mmol/L (-2.0-3.0); ABG HCO3 29.1 mmol/L (22.0-26.0); ABG MODE OF VENTILATION ASSIST/CONTROL; ABG OXYGEN SATURATION 97 % (94-98); ABG PO2 96 mmHg (80-100); ABG RESPIRATORY RATE 16 b/min; ABG TCO2 30.8 MMOL/L (21.0-29.0); ALLEN TEST POSITIVE
[2023-12-22] MEDS: CHLORHEXIDINE GLUCONATE 15 ML UDC PO SCH (10:41)
[2023-12-22] MEDS: FUROSEMIDE 20 MG/2 ML VIAL IVP STA (16:15)
--- NOTE | 2023-12-22 16:15 | PROVIDER PROGRESS NOTE ---
Subjective - Subjective Pt reports feeling: No change (He remains intubated and sedated on 2 drips) Objective - Vital Signs/Intake & Output Vital Signs: Vital Signs Temp Pulse Pulse Resp BP Pulse Ox 12/22/23 16:00 36.5 C 68 16 119/80 96 12/22/23 15:49 69 12/22/23 15:00 70 16 118/80 98 12/22/23 14:00 71 16 117/74 98 12/22/23 13:59 71 12/22/23 13:00 72 16 107/67 99 Intake & Output: Intake & Output 12/19/23 12/20/23 12/21/23 12/22/23 23:59 23:59 23:59 23:59 Intake Total 2128 2880.067 4949.866 2817.842 Output Total 890 1381 790 831 Balance 1238 1443.399 6752.866 1986.842 - Objective General Appearance: positive: Other (Sedated on IV drips) Eyes Bilateral: positive: No lid inflammation ENT: positive: Other (Poor dentition. ET tube and OG tube in place) Neck: positive: Nml inspection Respiratory: positive: Rhonchi (Bilateral, up three quarters) Cardiovascular: positive: Regular rate & rhythm, No murmur Abdomen: positive: No distention (soft) Skin: positive: Warm, Dry Extremities: positive: Other (1+ pedal edema, center left toe is missing, right toes are bandaged, both feet are bandaged) Neurologic/Psychiatric: positive: Other (Sedated on 2 drips) - Lab Results Fish Bones: 12/21/23 04:27 12/22/23 04:28 Other Labs: Lab Results x24hrs 12/22/23 12/22/23 12/22/23 Range/Units 11:18 08:27 05:52 Bld Gas Analysis Time 08 0600 Sample Site LEFT RADIAL RIGHT RADIAL ABG pH 7.35 7.34 L (7.35-7.45) ABG pCO2 54 H 55 H (34-45) mmHg ABG pO2 96 83 (80-100) mmHg ABG HCO3 29.1 H 29.0 H (22.0-26.0) mmol/L ABG Total CO2 30.8 H 30.7 H (21.0-29.0) MMOL/L ABG O2 Saturation 97 95 (94-98) % ABG Base Excess 2.8 2.5 (-2.0-3.0) mmol/L Moi Test POSITIVE POSITIVE VBG pH (7.31-7.41) Ionized Calcium (1.15-1.33) mmol/L Respiration Rate 16 12 b/min O2 Delivery Device MECH VENT VENTILATOR Vent Mode ASSIST/CONTROL ASSIST/CONTROL FiO2 40.00 40.00 Tidal Volume 450 450 mL PEEP 5 5 cmH2O Sodium (135-145) mmol/L Potassium (3.5-4.5) mmol/L Chloride (101-111) mmol/L Carbon Dioxide (21-32) mmol/L Anion Gap (6-13) BUN (6-20) mg/dL Creatinine (0.6-1.3) mg/dL Estimated GFR (MDRD) (>89) Glucose (74-104) mg/dL POC Whole Bld Glucose 248 H (70 - 100) mg/dL Calcium (8.5-10.3) mg/dL Phosphorus (2.5-5.0) mg/dL Magnesium (1.7-2.3) mg/dL Total Bilirubin (0.2-1.0) mg/dL AST (10-42) IU/L ALT (10-60) IU/L Alkaline Phosphatase (42-121) IU/L Troponin I High Sens (2.3-19.7) ng/L Total Protein (6.4-8.9) g/dL Albumin (3.2-5.5) g/dL Globulin (2.1-4.2) g/dL Albumin/Globulin Ratio (1.0-2.2) Prealbumin (17-34) mg/dL 12/22/23 12/22/23 12/22/23 Range/Units 05:34 04:28 04:28 Bld Gas Analysis Time Sample Site ABG pH (7.35-7.45) ABG pCO2 (34-45) mmHg ABG pO2 (80-100) mmHg ABG HCO3 (22.0-26.0) mmol/L ABG Total CO2 (21.0-29.0) MMOL/L ABG O2 Saturation (94-98) % ABG Base Excess (-2.0-3.0) mmol/L Moi Test VBG pH 7.317 (7.31-7.41) Ionized Calcium 1.21 (1.15-1.33) mmol/L Respiration Rate b/min O2 Delivery Device Vent Mode FiO2 Tidal Volume mL PEEP cmH2O Sodium 144 (135-145) mmol/L Potassium 4.4 (3.5-4.5) mmol/L Chloride 110 (101-111) mmol/L Carbon Dioxide 30 (21-32) mmol/L Anion Gap 4.0 L (6-13) BUN 26 H (6-20) mg/dL Creatinine 0.7 (0.6-1.3) mg/dL Estimated GFR (MDRD) 115 (>89) Glucose 230 H (74-104) mg/dL POC Whole Bld Glucose 225 H (70 - 100) mg/dL Calcium 8.7 (8.5-10.3) mg/dL Phosphorus (2.5-5.0) mg/dL Magnesium 2.2 (1.7-2.3) mg/dL Total Bilirubin 0.2 (0.2-1.0) mg/dL AST 8 L (10-42) IU/L ALT 19 (10-60) IU/L Alkaline Phosphatase 84 (42-121) IU/L Troponin I High Sens (2.3-19.7) ng/L Total Protein 5.0 L (6.4-8.9) g/dL Albumin 2.5 L (3.2-5.5) g/dL Globulin 2.5 (2.1-4.2) g/dL Albumin/Globulin Ratio 1.0 (1.0-2.2) Prealbumin 13 L (17-34) mg/dL 12/22/23 12/21/23 12/21/23 Range/Units 04:28 23:57 18:02 Bld Gas Analysis Time Sample Site ABG pH (7.35-7.45) ABG pCO2 (34-45) mmHg ABG pO2 (80-100) mmHg ABG HCO3 (22.0-26.0) mmol/L ABG Total CO2 (21.0-29.0) MMOL/L ABG O2 Saturation (94-98) % ABG Base Excess (-2.0-3.0) mmol/L Moi Test VBG pH (7.31-7.41) Ionized Calcium (1.15-1.33) mmol/L Respiration Rate b/min O2 Delivery Device Vent Mode FiO2 Tidal Volume mL PEEP cmH2O Sodium (135-145) mmol/L Potassium (3.5-4.5) mmol/L Chloride (101-111) mmol/L Carbon Dioxide (21-32) mmol/L Anion Gap (6-13) BUN (6-20) mg/dL Creatinine (0.6-1.3) mg/dL Estimated GFR (MDRD) (>89) Glucose (74-104) mg/dL POC Whole Bld Glucose 166 H 151 H (70 - 100) mg/dL Calcium (8.5-10.3) mg/dL Phosphorus 2.5 (2.5-5.0) mg/dL Magnesium (1.7-2.3) mg/dL Total Bilirubin (0.2-1.0) mg/dL AST (10-42) IU/L ALT (10-60) IU/L Alkaline Phosphatase (42-121) IU/L Troponin I High Sens (2.3-19.7) ng/L Total Protein (6.4-8.9) g/dL Albumin (3.2-5.5) g/dL Globulin (2.1-4.2) g/dL Albumin/Globulin Ratio (1.0-2.2) Prealbumin (17-34) mg/dL 12/21/23 12/21/23 Range/Units 15:55 15:55 Bld Gas Analysis Time Sample Site ABG pH (7.35-7.45) ABG pCO2 (34-45) mmHg ABG pO2 (80-100) mmHg ABG HCO3 (22.0-26.0) mmol/L ABG Total CO2 (21.0-29.0) MMOL/L ABG O2 Saturation (94-98) % ABG Base Excess (-2.0-3.0) mmol/L Moi Test VBG pH (7.31-7.41) Ionized Calcium (1.15-1.33) mmol/L Respiration Rate b/min O2 Delivery Device Vent Mode FiO2 Tidal Volume mL PEEP cmH2O Sodium (135-145) mmol/L Potassium 4.1 (3.5-4.5) mmol/L Chloride (101-111) mmol/L Carbon Dioxide (21-32) mmol/L Anion Gap (6-13) BUN (6-20) mg/dL Creatinine (0.6-1.3) mg/dL Estimated GFR (MDRD) (>89) Glucose (74-104) mg/dL POC Whole Bld Glucose (70 - 100) mg/dL Calcium (8.5-10.3) mg/dL Phosphorus 2.7 (2.5-5.0) mg/dL Magnesium (1.7-2.3) mg/dL Total Bilirubin (0.2-1.0) mg/dL AST (10-42) IU/L ALT (10-60) IU/L Alkaline Phosphatase (42-121) IU/L Troponin I High Sens 792.0 H* (2.3-19.7) ng/L Total Protein (6.4-8.9) g/dL Albumin (3.2-5.5) g/dL Globulin (2.1-4.2) g/dL Albumin/Globulin Ratio (1.0-2.2) Prealbumin (17-34) mg/dL Assessment/Plan - Problem List (1) Acute respiratory failure with hypoxia and hypercapnia Impression: Likely caused by his pneumonia on top of an asthma exacerbation in a patient who has sleep apnea and uses CPAP, per Hx. He first required BiPAP at time of admission.His ABG then showed respiratory acidosis and hypoxia and he was intubated Plan: Follow ABG to adjust vent setting Treat the underlying pneumonia and asthma exacerbation (2) Pneumonia Conclusion/Plan: Since he was hospitalized at [facility], then was living at a care home facility, he was started on antibx for healthcare-associated pneumonia. Because of worsening respiratory distress, he was intubated Plan: Await spt culture and blood cx results Cont antibiotics that were advised by Dr. Kearney of infectious disease: IV Vanco, cefepime and Doxy Cont probiotics via ng tube Qualifiers: Pneumonia type: due to unspecified organism Laterality: bilateral Lung location: lower lobe of lung Qualified Code(s): J18.9 - Pneumonia, unspecified organism (3) Asthma exacerbation Conclusion/Plan: Likely due to this pneumonia. He carries a history of chronic asthma Plan: Cont DuoNebs 4 times daily scheduled. Cont Pulmicort nebulized twice daily Cont iv steroids Continue montelukast at bedtime (4) On mechanically assisted ventilation Today he has high peak pressures of 30-35. RT has tried multiple adjustments and his ABG appears stable, peak pressures now are 30. Plan: Will give IV Lasix x1 Treat the underlying pneumonia and asthma Follow ABG to adjust settings IV propofol and IV fentanyl drips ordered for sedation while on the vent No CPAP or trial of extubation yet today, since he has extensive rhonchi by exam, and still needs signif vent support (5) Cor pulmonale As per Echo result Plan: This is probably secondary to asthma and exacerbations and this pneumonia and the recent pneumonia he had at [facility]. Alternatively he could have had a pure RV PA, given the elevation of troponins He will need IV fluids in order to maintain good preload of the LV and good cardiac output Plan: Continue with gentle IV fluids in addition to the new NG tube feeding plan (6) Type II PA Labs were ordered to evaluate for an PA and showed hs-troponin 500>> 1100>> 700 EKG was done which did not show ST elevations or any significant ischemic changes. Therefore I am considering the troponin elevation to be a type II PA. His Echo was done and showed RV dilation with depressed RV function and LVEF is 45 to 50% His lipids were not checked yet because he is not NPO, he is getting ng feeds Plan: 48 hours of therapeutic anticoagulants, then change to prophylactic once daily Lovenox dosing I planned to give him aspirin 324 mg then 81 daily but he carries an aspirin allergy. Will therefore treat with Plavix daily Cont beta-ya (7) Osteomyelitis Conclusion/Plan: As per the [place] [facility] by Dr Brown. Dr. Brown performed debridement of all his heel ulcers and sent off a bone sample for culture. Records were obtained from his hospitalization at [facility], which I reviewed. He was there from 11/19/23 thru 12/06/23. He was being treated for foot cellulitis, and they considered poss osteomyelitis On exam, he has amputated toes. Plan: Appreciate Dr. Kearney of infectious disease input; she spoke to our ED provider. Await blood culture results Await (outpatient) bone sample culture results Cont the antibiotics that were recommended by Dr. Kearney: IV Vanco, IV cefepime, IV Doxy Qualifiers: Osteomyelitis type: other chronic Osteomyelitis location: multiple sites Qualified Code(s): M86.69 - Other chronic osteomyelitis, multiple sites (8) DM type 2 (diabetes mellitus, type 2) Conclusion/Plan: His A1c came backc at His reconciled med list does not show any diabetic medications whatsoever. Records were obtained from his hospitalization at [facility], which I reviewed. He was supposed to be on Lantus BID and sliding scale insulin coverage. Plan: Cont NG tube feeds, managed by Nutrition Follow POC fingerstick checks every 6 hours and continue sliding scale insulin coverage, and hypoglycemia protocol (9) EN (obstructive sleep apnea) Conclusion/Plan: As per his records. Plan: Before he was intubated, RT tried to reach his son, with whom he lives, to bring in the home CPAP device (10) Chronic pain I reviewed his records from [facility] inpatient stay and he was on oxycodone and methadone for chronic pain management Plan: I have added fentanyl drip to his sedative regimen while he is intubated and on the vent (11) Shock Impression: RESOLVED. Levophed has been weaned to off. Yesterday while getting anesthesia for intubation, he dropped his blood pressure to 60. He neded Levophed started. Labs showed hs-troponin 500>> 1100 His white blood count did increase but Lactic Acid came back normal. BUN/creat showed prerenal azotemia yesterday He had been on Prednisone 40 mg po daily, therefore, he was started on Hydrocortisone 100 mg iv TID for probable Addisonian crisis Blood cultures are negative to date. We are awaiting sputum and urine culture results Plan: Remain in the ICU, intubated on the vent, he remains in critical condition. Continue gentle IV fluids and start NG feeds for nutrition and hydration Cont empiric antibiotics as recommended by ID Dr Lewis, for his infections (pneumonia and poss osteomyelitis). We are using IV Vanco, IV cefepime and IV doxycycline.
[2023-12-22] MEDS: INSULIN REGULAR HUMAN 300 UNIT/3 ML VIAL SUBQ SCH (17:48)
[2023-12-22 17:53] LABS: ABG PCO2 55 mmHg (34-45); ABG PH 7.38 (7.35-7.45)
[2023-12-22 17:54] LABS: ABG BASE EXCESS 5.9 mmol/L (-2.0-3.0); ABG HCO3 32.1 mmol/L (22.0-26.0); ABG OXYGEN SATURATION 96 % (94-98); ABG PO2 83 mmHg (80-100); ABG TCO2 33.8 MMOL/L (21.0-29.0); ALLEN TEST POSITIVE
[2023-12-22 17:55] LABS: ABG MODE OF VENTILATION ASSIST/CONTROL; ABG RESPIRATORY RATE 18 b/min
[2023-12-23 05:41] LABS: ALBUMIN 2.6 g/dL (3.2-5.5); ALBUMIN/GLOBULIN RATIO 1.1 (1.0-2.2); BILIRUBIN,TOTAL 0.2 mg/dL (0.2-1.0); CALCIUM 8.8 mg/dL (8.5-10.3); CREATININE 0.7 mg/dL (0.6-1.3); POTASSIUM 4.9 mmol/L (3.5-4.5); TOTAL PROTEIN 4.9 g/dL (6.4-8.9)
[2023-12-23 05:50] LABS: CALCIUM, IONIZED 1.2 mmol/L (1.15-1.33); VBG PH 7.343 (7.31-7.41)
[2023-12-23] MEDS: SODIUM PHOSPHATE 15 MMOL in SODIUM CHLORIDE 0.9% 250 ML IV ONE ×2 (08:40→19:05)
[2023-12-23] MEDS: IPRATROPIUM/ALBUTEROL 3 ML NEB INH SCH (12:00)
--- NOTE | 2023-12-23 18:11 | PROVIDER PROGRESS NOTE ---
Subjective - Subjective Pt reports feeling: No change (Still intubated and sedated on 2 iv drips) Objective - Vital Signs/Intake & Output Vital Signs: Vital Signs Temp Pulse Pulse Resp BP Pulse Ox 12/23/23 17:46 78 18 12/23/23 17:00 36.9 C 79 18 165/92 H 99 12/23/23 16:00 79 18 162/85 H 92 12/23/23 15:35 30 L 78 H 12/23/23 15:30 79 12/23/23 15:00 36.8 C 79 18 124/72 100 Intake & Output: Intake & Output 12/20/23 12/21/23 12/22/23 12/23/23 23:59 23:59 23:59 23:59 Intake Total 2880.067 4949.866 4089.188 4949.838 Output Total 3961 267 8098 1277 Balance 9249.273 6999.866 4674.189 8696.838 - Objective General Appearance: positive: No acute distress (Sedated on iv drips while on the vent) Eyes Bilateral: positive: No lid inflammation ENT: positive: No signs of dehydration, Other (poor dentition) Neck: positive: Nml inspection Respiratory: positive: Rhonchi (at both bases, about 1/[address] up) Cardiovascular: positive: Regular rate & rhythm, No murmur Abdomen: positive: No distention Skin: positive: Warm, Dry Extremities: positive: No pedal edema Neurologic/Psychiatric: positive: Other (Sedated on iv drips) - Lab Results Fish Bones: 12/21/23 04:27 12/23/23 03:50 Other Labs: Lab Results x24hrs 12/23/23 12/23/23 12/23/23 Range/Units 11:59 06:01 03:50 VBG pH 7.343 (7.31-7.41) Ionized Calcium 1.20 (1.15-1.33) mmol/L Sodium (135-145) mmol/L Potassium (3.5-4.5) mmol/L Chloride (101-111) mmol/L Carbon Dioxide (21-32) mmol/L Anion Gap (6-13) BUN (6-20) mg/dL Creatinine (0.6-1.3) mg/dL Estimated GFR (MDRD) (>89) Glucose (74-104) mg/dL POC Whole Bld Glucose 217 H 256 H (70 - 100) mg/dL Calcium (8.5-10.3) mg/dL Phosphorus (2.5-5.0) mg/dL Magnesium (1.7-2.3) mg/dL Total Bilirubin (0.2-1.0) mg/dL AST (10-42) IU/L ALT (10-60) IU/L Alkaline Phosphatase (42-121) IU/L Total Protein (6.4-8.9) g/dL Albumin (3.2-5.5) g/dL Globulin (2.1-4.2) g/dL Albumin/Globulin Ratio (1.0-2.2) Prealbumin (17-34) mg/dL 12/23/23 12/23/23 12/22/23 Range/Units 03:50 03:50 23:51 VBG pH (7.31-7.41) Ionized Calcium (1.15-1.33) mmol/L Sodium 142 (135-145) mmol/L Potassium 4.9 H (3.5-4.5) mmol/L Chloride 109 (101-111) mmol/L Carbon Dioxide 31 (21-32) mmol/L Anion Gap 2.0 L (6-13) BUN 32 H (6-20) mg/dL Creatinine 0.7 (0.6-1.3) mg/dL Estimated GFR (MDRD) 115 (>89) Glucose 284 H (74-104) mg/dL POC Whole Bld Glucose 274 H (70 - 100) mg/dL Calcium 8.8 (8.5-10.3) mg/dL Phosphorus 1.8 L (2.5-5.0) mg/dL Magnesium 2.0 (1.7-2.3) mg/dL Total Bilirubin 0.2 (0.2-1.0) mg/dL AST 6 L (10-42) IU/L ALT 16 (10-60) IU/L Alkaline Phosphatase 77 (42-121) IU/L Total Protein 4.9 L (6.4-8.9) g/dL Albumin 2.6 L (3.2-5.5) g/dL Globulin 2.3 (2.1-4.2) g/dL Albumin/Globulin Ratio 1.1 (1.0-2.2) Prealbumin 19 (17-34) mg/dL Assessment/Plan - Problem List (1) Acute respiratory failure with hypoxia and hypercapnia Impression: Likely caused by his pneumonia on top of an asthma exacerbation in a patient who has sleep apnea and uses CPAP, per Hx. He first required BiPAP at time of admission.His ABG then showed respiratory acidosis and hypoxia and he was intubated Plan: Follow ABG to adjust vent setting Treat the underlying pneumonia and asthma exacerbation (2) Pneumonia Conclusion/Plan: Since he was hospitalized at [facility], then was living at a group home facility, he was started on antibx for healthcare-associated pneumonia. Because of worsening respiratory distress, he was intubated Plan: Await spt culture and blood cx results Cont antibiotics that were advised by Dr. Kearney of infectious disease: IV Vanco, cefepime and Doxy Cont probiotics via ng tube Qualifiers: Pneumonia type: due to unspecified organism Laterality: bilateral Lung location: lower lobe of lung Qualified Code(s): J18.9 - Pneumonia, unspecified organism (3) Asthma exacerbation Conclusion/Plan: Likely due to this pneumonia. He carries a history of chronic asthma Plan: Cont DuoNebs 4 times daily scheduled. Cont Pulmicort nebulized twice daily Cont iv steroids Continue montelukast at bedtime (4) On mechanically assisted ventilation Today he has high peak pressures of 30-35. RT has tried multiple adjustments a nd his ABG appears stable, peak pressures now are 30. Plan: Will try a CPAP trial this a.m. for 30-60 min, and if successful then another this afternoon Cont to treat the underlying pneumonia and asthma Follow ABG to adjust settings Cont IV propofol and IV fentanyl drips ordered for sedation while on the vent His nebs have helped decrease his peak pressures, so I will increase frequency from QID, to q4h scheduled, and discussed this with RT (5) Cor pulmonale As per Echo result Plan: This is probably secondary to asthma and exacerbations and this pneumonia and the recent pneumonia he had at [facility]. Alternatively he could have had a pure RV DE, given the elevation of troponins He will need IV fluids in order to maintain good preload of the LV and good cardiac output Plan: Continue with gentle IV fluids in addition to the new NG tube feeding plan (6) Type II DE Labs were ordered to evaluate for an DE and showed hs-troponin 500>> 1100>> 700 EKG was done which did not show ST elevations or any significant ischemic changes. Therefore I am considering the troponin elevation to be a type II DE. His Echo was done and showed RV dilation with depressed RV function and LVEF is 45 to 50% His lipids were not checked yet because he is not NPO, he is getting ng feeds Plan: Plan was 48 hours of therapeutic anticoagulants, then change to prophylactic once daily Lovenox dosing, so will start daily today I planned to give him aspirin 324 mg then 81 daily but he carries an aspirin allergy. Will therefore treat with Plavix daily Cont beta-ya (7) Osteomyelitis Conclusion/Plan: As per the 12/19/23 [facility] clinic note by Dr Brown. Dr. Brown performed debridement of all his heel ulcers and sent off a bone sample for culture. Records were obtained from his hospitalization at [facility], which I reviewed. He was there from 11/19/23 thru 12/06/23. He was being treated for foot cellulitis, and they considered poss osteomyelitis On exam, he has amputated toes. Plan: Appreciate Dr. Kearney of infectious disease input; she spoke to our ED provider. Await blood culture results Await (outpatient) bone sample culture results Cont the antibiotics that were recommended by Dr. Kearney: IV Vanco, IV cefepime, IV Doxy Qualifiers: Osteomyelitis type: other chronic Osteomyelitis location: multiple sites Qualified Code(s): M86.69 - Other chronic osteomyelitis, multiple sites (8) DM type 2 (diabetes mellitus, type 2) Conclusion/Plan: His A1c came backc at His reconciled med list does not show any diabetic medications whatsoever. Records were obtained from his hospitalization at [facility], which I reviewed. He was supposed to be on Lantus BID and sliding scale insulin coverage. Plan: Cont NG tube feeds, managed by Nutrition Follow POC fingerstick checks every 6 hours and continue sliding scale insulin coverage, and hypoglycemia protocol (9) EN (obstructive sleep apnea) Conclusion/Plan: As per his records. Plan: Before he was intubated, RT tried to reach his son, with whom he lives, to bring in the home CPAP device (10) Chronic pain I reviewed his records from [facility] inpatient stay and he was on oxycodone and methadone for chronic pain management Plan: I have added fentanyl drip to his sedative regimen while he is intubated and on the vent (11) Shock Impression: RESOLVED. Levophed has been weaned to off. Yesterday while getting anesthesia for intubation, he dropped his blood pressure to 60. He neded Levophed started. Labs showed hs-troponin 500>> 1100 His white blood count did increase but Lactic Acid came back normal. BUN/creat showed prerenal azotemia yesterday He had been on Prednisone 40 mg po daily, therefore, he was started on Hydrocortisone 100 mg iv TID for probable Addisonian crisis Blood cultures are negative to date. We are awaiting sputum and urine culture results Plan: Remain in the ICU, intubated on the vent, he remains in critical condition. Continue gentle IV fluids and start NG feeds for nutrition and hydration Cont empiric antibiotics as recommended by ID Dr Lewis, for his infections (pneumonia and poss osteomyelitis). We are using IV Vanco, IV cefepime and IV doxycycline.
[2023-12-24 05:32] LABS: ALBUMIN 2.7 g/dL (3.2-5.5); ALBUMIN/GLOBULIN RATIO 1.1 (1.0-2.2); BILIRUBIN,TOTAL 0.2 mg/dL (0.2-1.0); CALCIUM, IONIZED 1.23 mmol/L (1.15-1.33); CREATININE 0.6 mg/dL (0.6-1.3); POTASSIUM 4.7 mmol/L (3.5-4.5); TOTAL PROTEIN 5.1 g/dL (6.4-8.9); VBG PH 7.367 (7.31-7.41)
[2023-12-24 05:57] LABS: ABG HCO3 30.5 mmol/L (22.0-26.0); ABG PCO2 46 mmHg (34-45); ABG PH 7.44 (7.35-7.45); ABG PO2 104 mmHg (80-100); ABG TCO2 31.9 MMOL/L (21.0-29.0)
[2023-12-24 05:58] LABS: ABG BASE EXCESS 5.7 mmol/L (-2.0-3.0); ABG MODE OF VENTILATION ASSIST/CONTROL; ABG OXYGEN SATURATION 98 % (94-98); ABG RESPIRATORY RATE 18 b/min; ALLEN TEST POSITIVE
--- NOTE | 2023-12-24 08:19 | PROVIDER PROGRESS NOTE ---
Subjective - Subjective Pt reports feeling: No change (Remains intubated on the vent, on 2 IV sedative drips) Objective - Vital Signs/Intake & Output Reviewed Vital Signs: Yes Vital Signs: Vital Signs Temp Pulse Pulse Resp BP Pulse Ox 12/24/23 07:00 146 H 33 H 229/116 H 100 12/24/23 06:43 130 H 12/24/23 06:00 36.8 C 126 H 96 18 173/94 H 100 12/24/23 05:00 90 16 157/78 H 100 12/24/23 04:06 77 18 130/67 100 Intake & Output: Intake & Output 12/21/23 12/22/23 12/23/23 12/24/23 23:59 23:59 23:59 23:59 Intake Total 4949.866 4089.188 6397.235 2446.378 Output Total 790 2186 1784 905 Balance 4159.866 4683.458 3612.235 1541.378 - Objective General Appearance: positive: Other (Sedated, on sedative drip) Eyes Bilateral: positive: No lid inflammation ENT: positive: No signs of dehydration, Other (ET tube and OG tubes in) Neck: positive: Nml inspection Respiratory: positive: Rales, Rhonchi (Bilateral up one quarter) Cardiovascular: positive: Regular rate & rhythm, No murmur Abdomen: positive: No distention (Soft) Extremities: positive: No pedal edema Neurologic/Psychiatric: positive: Other (Sedated on 2 sedative drips) - Lab Results Fish Bones: 12/21/23 04:27 12/24/23 04:53 Other Labs: Lab Results x24hrs 12/24/23 12/24/23 12/24/23 Range/Units 06:10 05:45 04:53 Bld Gas Analysis Time 0555 Sample Site RIGHT RADIAL ABG pH 7.44 (7.35-7.45) ABG pCO2 46 H (34-45) mmHg ABG pO2 104 H (80-100) mmHg ABG HCO3 30.5 H (22.0-26.0) mmol/L ABG Total CO2 31.9 H (21.0-29.0) MMOL/L ABG O2 Saturation 98 (94-98) % ABG Base Excess 5.7 H (-2.0-3.0) mmol/L Moi Test POSITIVE VBG pH 7.367 (7.31-7.41) Ionized Calcium 1.23 (1.15-1.33) mmol/L Respiration Rate 18 b/min O2 Delivery Device VENTILATOR Vent Mode ASSIST/CONTROL FiO2 40.00 Tidal Volume 420 mL PEEP 5 cmH2O Sodium (135-145) mmol/L Potassium (3.5-4.5) mmol/L Chloride (101-111) mmol/L Carbon Dioxide (21-32) mmol/L Anion Gap (6-13) BUN (6-20) mg/dL Creatinine (0.6-1.3) mg/dL Estimated GFR (MDRD) (>89) Glucose (74-104) mg/dL POC Whole Bld Glucose 259 H (70 - 100) mg/dL Calcium (8.5-10.3) mg/dL Phosphorus (2.5-5.0) mg/dL Magnesium (1.7-2.3) mg/dL Total Bilirubin (0.2-1.0) mg/dL AST (10-42) IU/L ALT (10-60) IU/L Alkaline Phosphatase (42-121) IU/L Total Protein (6.4-8.9) g/dL Albumin (3.2-5.5) g/dL Globulin (2.1-4.2) g/dL Albumin/Globulin Ratio (1.0-2.2) Prealbumin (17-34) mg/dL 12/24/23 12/24/23 12/23/23 Range/Units 04:53 04:53 23:58 Bld Gas Analysis Time Sample Site ABG pH (7.35-7.45) ABG pCO2 (34-45) mmHg ABG pO2 (80-100) mmHg ABG HCO3 (22.0-26.0) mmol/L ABG Total CO2 (21.0-29.0) MMOL/L ABG O2 Saturation (94-98) % ABG Base Excess (-2.0-3.0) mmol/L Moi Test VBG pH (7.31-7.41) Ionized Calcium (1.15-1.33) mmol/L Respiration Rate b/min O2 Delivery Device Vent Mode FiO2 Tidal Volume mL PEEP cmH2O Sodium 142 (135-145) mmol/L Potassium 4.7 H (3.5-4.5) mmol/L Chloride 108 (101-111) mmol/L Carbon Dioxide 33 H (21-32) mmol/L Anion Gap 1.0 L (6-13) BUN 40 H (6-20) mg/dL Creatinine 0.6 (0.6-1.3) mg/dL Estimated GFR (MDRD) 137 (>89) Glucose 288 H (74-104) mg/dL POC Whole Bld Glucose 228 H (70 - 100) mg/dL Calcium 9.0 (8.5-10.3) mg/dL Phosphorus 2.2 L (2.5-5.0) mg/dL Magnesium 2.0 (1.7-2.3) mg/dL Total Bilirubin 0.2 (0.2-1.0) mg/dL AST 7 L (10-42) IU/L ALT 15 (10-60) IU/L Alkaline Phosphatase 68 (42-121) IU/L Total Protein 5.1 L (6.4-8.9) g/dL Albumin 2.7 L (3.2-5.5) g/dL Globulin 2.4 (2.1-4.2) g/dL Albumin/Globulin Ratio 1.1 (1.0-2.2) Prealbumin 25 (17-34) mg/dL 12/23/23 12/23/23 12/23/23 Range/Units 18:16 16:30 11:59 Bld Gas Analysis Time Sample Site ABG pH (7.35-7.45) ABG pCO2 (34-45) mmHg ABG pO2 (80-100) mmHg ABG HCO3 (22.0-26.0) mmol/L ABG Total CO2 (21.0-29.0) MMOL/L ABG O2 Saturation (94-98) % ABG Base Excess (-2.0-3.0) mmol/L Moi Test VBG pH (7.31-7.41) Ionized Calcium (1.15-1.33) mmol/L Respiration Rate b/min O2 Delivery Device Vent Mode FiO2 Tidal Volume mL PEEP cmH2O Sodium (135-145) mmol/L Potassium (3.5-4.5) mmol/L Chloride (101-111) mmol/L Carbon Dioxide (21-32) mmol/L Anion Gap (6-13) BUN (6-20) mg/dL Creatinine (0.6-1.3) mg/dL Estimated GFR (MDRD) (>89) Glucose (74-104) mg/dL POC Whole Bld Glucose 258 H 217 H (70 - 100) mg/dL Calcium (8.5-10.3) mg/dL Phosphorus 2.1 L (2.5-5.0) mg/dL Magnesium (1.7-2.3) mg/dL Total Bilirubin (0.2-1.0) mg/dL AST (10-42) IU/L ALT (10-60) IU/L Alkaline Phosphatase (42-121) IU/L Total Protein (6.4-8.9) g/dL Albumin (3.2-5.5) g/dL Globulin (2.1-4.2) g/dL Albumin/Globulin Ratio (1.0-2.2) Prealbumin (17-34) mg/dL Assessment/Plan - Problem List (1) Acute respiratory failure with hypoxia and hypercapnia Impression: Likely caused by his pneumonia on top of an asthma exacerbation in a patient who has sleep apnea and uses CPAP, per Hx. He first required BiPAP at time of admission. His ABG then showed respiratory acidosis and hypoxia and he was intubated Plan: Follow ABG to adjust vent setting Treat the underlying pneumonia and asthma exacerbation (2) Pneumonia Conclusion/Plan: He was hospitalized at [facility] 1 month ago where he had a pneumonia. Then he was at a long-term facility. Thus we ordered antibx for healthcare- associated pneumonia. Then because of worsening respiratory distress, he was intubated Plan: Await spt culture and blood cx results to tailor antibx Cont antibiotics that were advised by Dr. Kearney of infectious disease at [facility]: IV Vanco, iv cefepime and iv Doxy Cont probiotics via ng tube Qualifiers: Pneumonia type: due to unspecified organism Laterality: bilateral Lung location: lower lobe of lung Qualified Code(s): J18.9 - Pneumonia, unspecified organism (3) Asthma exacerbation Conclusion/Plan: Likely due to this pneumonia. He carries a history of chronic asthma Plan: Cont DuoNebs q4h scheduled. Cont Pulmicort nebulized twice daily Cont iv steroids Solumedrol 40 TID Continue montelukast at hs via ng tube (4) On mechanically assisted ventilation After intubation, he had high peak pressures of 30-35. RT noted that the neb treatments bring this down, so nebs increased from QID to q4h scheduled. Yesterday 12/23/23 the first CPAP trial was attempted, after sedatives were stopped, he remained apneic while on CPAP, so he was put back on the vent. Today 12/24/23 a CPAP trial was tried after sedatives were decreased, and he was agitated, hypertensive and tachycardic, so sedatives and the vent were resumed. Plan: Will trial CPAP BID Cont to treat the underlying pneumonia and asthma Follow ABG to adjust settings Cont IV propofol and IV fentanyl drips ordered for sedation while on the vent RT learned that 1 year ago, when he had COVID and was intubated, he needed to be transferred to a larger hospital, needed to be trached and a very slow vent wean was needed. (5) HTN When IV sedatives were decreased today 12/24/23, to start a vent weaning trial, his blood pressure dereck to 220 systolic and HR became tachycardic His reconciled med list does not show he was on any BP meds Plan: He is off Levophed since shock has resolved, so I will stop that order Stop Hydrocortisone 100 mg IV 3 times daily for treating Addisonian crisis Start him on beta-blockers and Nitrates, for BP control and for post- IN tx (6) Type II IN When he dropped his BP to 60, labs were done and showed hs-troponin 500>> 1100>> 700 EKG was done which did not show ST elevations or any significant ischemic changes. Therefore I am considering the troponin elevation to be a type II IN. His Echo was done and showed RV dilation with depressed RV function and LVEF mildly depressed at 45 to 50% His lipids were not checked yet because he is not NPO, he is getting ng feeds He got 48 hours of therapeutic Lovenox BID, then was changed to prophylactic once daily Lovenox dosing I planned to give him aspirin 324 mg then 81 daily but he carries an aspirin allergy. Therefore treated with Plavix daily Plan: Cont beta-ya and add Nitrates, for HTN today (7) DM type 2 (diabetes mellitus, type 2) Conclusion/Plan: His A1c came back at 6.6, indicating good glu control before adm Records were obtained from his hospitalization at [facility], which I reviewed. He was supposed to be on Lantus BID and sliding scale insulin coverage. Since being on NG feeds, his glucoses running ~200-250 Plan: Cont NG tube feeds, managed by Nutrition I will start Semglee insulin 10 units twice daily Follow POC fingerstick checks every 6 hours and continue sliding scale insulin coverage, and hypoglycemia protocol (8) Osteomyelitis Conclusion/Plan: As per the 12/19/23 [facility] [place] [facility]ound clinic note by Dr Brown. Dr. Brown performed debridement of all his heel ulcers and sent off a bone sample for culture. Records were obtained from his hospitalization at [facility], which I reviewed. He was there from 11/19/23 thru 12/06/23. He was being treated for foot cellulitis, and they considered poss osteomyelitis On exam, he has amputated toes. Plan: Appreciate Dr. Kearney of infectious disease input; she spoke to our ED provider. Await blood culture results Await (outpatient) bone sample culture results Cont the antibiotics that were recommended by Dr. Kearney: IV Vanco, IV cefepime, IV Doxy Qualifiers: Osteomyelitis type: other chronic Osteomyelitis location: multiple sites Qualified Code(s): M86.69 - Other chronic osteomyelitis, multiple sites (9) Cor pulmonale As per Echo result Plan: This is probably secondary to asthma and exacerbations and this pneumonia and the recent pneumonia he had at [facility]. Alternatively he could have had a pure RV IN, given the elevation of troponins He will need IV fluids in order to maintain good preload of the LV and good cardiac output Plan: Continue with gentle IV fluids in addition to the new NG tube feedings (10) EN (obstructive sleep apnea) Conclusion/Plan: As per his records. Plan: Before he was intubated, RT tried to reach his son, with whom he lives, to bring in the home CPAP device (11) Chronic pain I reviewed his records from [facility] inpatient stay and he was on oxycodone and methadone for chronic pain management Plan: I have added fentanyl drip to his sedative regimen while he is intubated and on the vent (12) Shock Impression: RESOLVED. Levophed was weaned to off. While getting anesthetic for intubation, he dropped his blood pressure to 60. He needed Levophed started. Labs showed hs-troponin 500>> 1100 He had been on Prednisone 40 mg po daily before admission, therefore, he was started on Hydrocortisone 100 mg iv TID for probable Addisonian crisis Plan: Remain in the ICU, intubated on the vent, getting iv antibx, he remains in cr itical condition.
[2023-12-24] MEDS: SODIUM PHOSPHATE 15 MMOL in SODIUM CHLORIDE 0.9% 250 ML IV ONE (08:36)
--- NOTE | 2023-12-24 10:22 | XRAY Report ---
PROCEDURE: Chest 1V INDICATIONS: F/U pneumonia TECHNIQUE: One view of the chest was acquired. COMPARISON: 12/21/2023 FINDINGS: Surgical changes and devices: ET tube and NG tube and central line are unchanged in position. Tip of the ET tube is approximately 1.7 cm above the tank. Cervical fusion hardware. Lungs and pleura: No pleural effusions or pneumothorax. Again noted is bilateral upper lung field co nsolidation, somewhat improved from the previous study. Mediastinum: Mediastinal contours appear normal. Heart size is normal. Bones and chest wall: No suspicious bony lesions. Overlying soft tissues appear unremarkable. IMPRESSION: 1. ET tube tip approximately 1.7 cm above the tank. 2. Slight interval improvement in bilateral upper lung field consolidation, suggesting improving pneu monia. Reviewed by: Rex Camp MD on 12/24/2023 10:21 AM PST Approved by: Rex Camp MD on 12/24/2023 10:21 AM PST Station ID: [id number]
[2023-12-24] MEDS: METOPROLOL TARTRATE 25 MG TABLET PO SCH (10:55)
[2023-12-24] MEDS: ENOXAPARIN 40 MG/0.4 ML SYRINGE SUBQ SCH (11:00)
[2023-12-24] MEDS: INSULIN GLARGINE-YFGN 300 UNIT/3 ML PEN SUBQ SCH (11:51)
[2023-12-24] MEDS: INSULIN REGULAR HUMAN 300 UNIT/3 ML VIAL SUBQ SCH (11:58)
[2023-12-24] MEDS: FUROSEMIDE 20 MG/2 ML VIAL IVP STA (13:21)
[2023-12-24] MEDS: NITROGLYCERIN 2% PASTE TOP SCH (13:26)
[2023-12-24] MEDS: methylPREDNISolone SUCCINATE 40 MG/ML VIAL IVP SCH (13:45)
[2023-12-25 05:44] LABS: CALCIUM, IONIZED 1.17 mmol/L (1.15-1.33); VBG PH 7.438 (7.31-7.41)
[2023-12-25 05:50] LABS: CALCIUM 8.8 mg/dL (8.5-10.3); CREATININE 0.6 mg/dL (0.6-1.3); MAGNESIUM 1.9 mg/dL (1.7-2.3); PHOSPHORUS 2.3 mg/dL (2.5-5.0); POTASSIUM 4.6 mmol/L (3.5-4.5)
[2023-12-25 06:09] LABS: ABG BASE EXCESS 6.8 mmol/L (-2.0-3.0); ABG HCO3 32.2 mmol/L (22.0-26.0); ABG OXYGEN SATURATION 96 % (94-98); ABG PCO2 50 mmHg (34-45); ABG PH 7.43 (7.35-7.45); ABG PO2 83 mmHg (80-100); ABG TCO2 33.7 MMOL/L (21.0-29.0); ALLEN TEST POSITIVE
[2023-12-25 06:10] LABS: ABG MODE OF VENTILATION ASSIST/CONTROL; ABG RESPIRATORY RATE 16 b/min
[2023-12-25] MEDS: SODIUM PHOSPHATE 15 MMOL in SODIUM CHLORIDE 0.9% 250 ML IV ONE (07:59)
--- NOTE | 2023-12-25 08:07 | PROVIDER PROGRESS NOTE ---
Assessment/Plan - Problem List (1) Acute respiratory failure with hypoxia and hypercapnia Assessment/Plan: Plan: Patient remains critically ill and continues to require artificial life support with mechanical ventilation. Continue mechanical ventilation for respiratory support. (2) Pneumonia Conclusion/Plan: Plan: Continue empiric antibiotics that were advised by Dr. Kearney of infectious disease at [facility]: IV Vanco, iv cefepime and iv Doxy Cont probiotics via ng tube Qualifiers: Pneumonia type: due to unspecified organism Laterality: bilateral Lung location: lower lobe of lung Qualified Code(s): J18.9 - Pneumonia, unspecified organism (3) Asthma exacerbation Conclusion/Plan: Plan: Cont DuoNebs q4h scheduled. Cont Pulmicort nebulized twice daily Cont iv steroids Solumedrol 40 TID Continue montelukast at hs via ng tube (4) HTN Continue lisinopril and metoprolol for blood pressure control. (5) Type II SC Continue clopidogrel, metoprolol, nitroglycerin and lisinopril. (6) DM type 2 (diabetes mellitus, type 2) Conclusion/Plan: Continue glargine and sliding scale insulin. (7) Osteomyelitis Conclusion/Plan: As per the 12/19/23 [facility] Wound clinic note by Dr Brown. Dr. Brown performed debridement of all his heel ulcers and sent off a bone sample for culture. Records were obtained from his hospitalization at [facility], which I reviewed. He was there from 11/19/23 thru 12/06/23. He was being treated for foot cellulitis, and they considered poss osteomyelitis On exam, he has amputated toes. Plan: Appreciate Dr. Kearney of infectious disease input; she spoke to our ED provider. Continue cefepime, vancomycin and doxycycline. Await (outpatient) bone sample culture results Qualifiers: Osteomyelitis type: other chronic Osteomyelitis location: multiple sites Qualified Code(s): M86.69 - Other chronic osteomyelitis, multiple sites (8) Cardiomyopathy As per Echo result Left ejection fracture is 45-50% and RV function is 30% Plan: Initiate treatment with Lasix (9) EN (obstructive sleep apnea) Conclusion/Plan: Patient is intubated. Consider initiation of positive airway pressure therapy after extubation. (11) Chronic pain I reviewed his records from [facility] inpatient stay and he was on oxycodone and methadone for chronic pain management Plan: Continue methadone 10 mg daily.Consider decreasing the dose if patient continues to have altered mental status. (12) Shock Impression: Resolved. Patient remains critically ill and continues to have a life-threatening condition requiring artificial life support with mechanical ventilation. Time spent at the bedside examining the patient,, reviewing his labs, writing orders is 37 minutes. - Current Meds Current Meds: Current Medications Generic Name Dose Route Start Last Admin Trade Name Freq PRN Reason Stop Dose Admin Albuterol/Ipratropium 3 ml 12/19/23 19:35 12/24/23 03:09 Ipratropium/Albuterol 3 Ml Neb INH 3 ml Q4HR PRN Administration Wheezing Albuterol/Ipratropium 3 ml 12/23/23 12:00 12/25/23 05:54 Ipratropium/Albuterol 3 Ml Neb INH 3 ml RTQ4H DARCIE Administration Budesonide 0.5 mg 12/19/23 19:36 12/25/23 05:54 Budesonide 0.5 Mg/2 Ml Neb INH 0.5 mg RTBID DARCIE Administration Chlorhexidine Gluconate 15 ml 12/22/23 10:22 12/24/23 20:54 Chlorhexidine Gluconate 15 Ml Udc PO 15 ml BID DARCIE Administration Clopidogrel Bisulfate 75 mg 12/20/23 18:20 12/24/23 10:59 Clopidogrel 75 Mg Tablet PO 75 mg DAILY DARCIE Administration Enoxaparin Sodium 40 mg 12/24/23 10:00 12/24/23 11:00 Enoxaparin 40 Mg/0.4 Ml Syringe SUBQ 40 mg DAILY DARCIE Administration Famotidine 20 mg 12/19/23 21:00 12/24/23 20:54 Famotidine 20 Mg/2 Ml Vial IVP 20 mg BID DARCIE Administration Fluticasone Propionate 2 sprays 12/19/23 21:00 12/24/23 20:56 Fluticasone Nasal [place] MONICA Not Given QPM DARCIE Gabapentin 900 mg 12/19/23 22:00 12/25/23 06:04 Gabapentin 300 Mg Capsule PO 900 mg TID DARCIE Administration Cefepime HCl 1 gm/ Sodium 100 mls @ 200 mls/hr 12/19/23 22:00 12/25/23 07:05 Chloride IV Infused Q8H DARCIE Infusion Doxycycline Hyclate 100 mg/ 100 mls @ 100 mls/hr 12/19/23 21:00 12/24/23 21:55 Sodium Chloride IV Infused Q12H DARCIE Infusion Vancomycin HCl 1 gm/ Sodium 250 mls @ 167 mls/hr 12/20/23 08:00 12/25/23 07:55 Chloride IV 167 mls/hr Q12H DARCIE Administration Propofol 1,000 mg in 100 mls @ 4.26 mls/hr 12/20/23 13:00 12/25/23 04:27 Diprivan IV 40 mcg/kg/min .[id number] DARCIE 17.04 mls/hr Administration Protocol 10 MCG/KG/MIN Fentanyl 2,500 mcg in 250 mls @ 6.9 mls/hr 12/21/23 09:00 12/25/23 04:27 Fentanyl IV 2 mcg/kg/hr .[id number] DARCIE 13.8 mls/hr Administration Protocol 1 MCG/KG/HR Sodium Phosphate 15 mmol/ 255 mls @ 63.75 mls/hr 12/25/23 08:00 12/25/23 07:59 Sodium Chloride IV 12/25/23 11:59 63.75 mls/hr ONCE ONE Administration Protocol Insulin Glargine-yfgn 10 unit 12/24/23 09:32 12/24/23 21:17 Insulin Glargine-Yfgn 300 Unit/3 Ml Pen SUBQ 10 unit BID DARCIE Administration Insulin Human Regular 2 - 10 unit 12/24/23 12:00 12/25/23 06:05 Insulin Regular Human 300 Unit/3 Ml Vial SUBQ 6 unit Q6HR DARCIE Administration Protocol Lorazepam 1 mg 12/20/23 09:30 12/25/23 03:24 Lorazepam 2 Mg/Ml Vial IVP 1 mg Q2H PRN Administration Anxiety Methadone HCl 10 mg 12/20/23 09:00 12/24/23 10:59 Methadone 5 Mg Tablet PO 10 mg DAILY DARCIE Administration Methylprednisolone 40 mg 12/24/23 14:00 12/25/23 06:04 Methylprednisolone Succinate 40 Mg/Ml Vial IVP 40 mg TID DARCIE Administration Metoprolol Tartrate 25 mg 12/24/23 09:00 12/24/23 20:54 Metoprolol Tartrate 25 Mg Tablet PO 25 mg BID DARCIE Administration Montelukast Sodium 10 mg 12/19/23 21:00 12/24/23 20:55 Montelukast 10 Mg Tablet PO 10 mg QPM DARCIE Administration Nitroglycerin 0.5 inch 12/24/23 13:00 12/25/23 07:07 Nitroglycerin 2% Paste TOP 0.5 inch Q6H DARCIE Administration Phenol/Menthol 2 sprays 12/19/23 20:31 12/19/23 22:29 Phenol Throat [place] 177 Ml MM 2 sprays Q2HR PRN Administration Throat Pain Sodium Chloride 10 ml 12/20/23 01:00 12/25/23 01:03 Sodium Chloride Flush 0.9% 10 Ml Syringe IVP 10 ml 0100,0900,1700 DARCIE Administration Sodium Chloride 10 ml 12/19/23 17:32 12/23/23 21:59 Sodium Chloride Flush 0.9% 10 Ml Syringe IVP 10 ml PRN PRN Administration NEEDED PER PROVIDER ORDERS - Lab Result Fish Bone Diagrams: 12/21/23 04:27 12/25/23 21:00 Subjective - Subjective Patient Reports: Other (Intubated and sedated.Not following commands.) Objective Vital Signs: Vital Signs - 24 hr 12/24/23 12/24/23 12/24/23 08:25 09:00 10:00 Temperature Heart Rate 87 Heart Rate [ 85 79 Monitoring electrodes] Respiratory 15 15 Rate Blood Pressure Blood Pressure 119/66 129/71 [Left Brachial artery] O2 Saturation 100 100 12/24/23 12/24/23 12/24/23 10:52 10:55 11:00 Temperature Heart Rate 76 Heart Rate [ 77 Monitoring electrodes] Respiratory 16 Rate Blood Pressure 129/71 Blood Pressure 134/74 H [Left Brachial artery] O2 Saturation 100 12/24/23 12/24/23 12/24/23 12:00 13:00 14:00 Temperature Heart Rate Heart Rate [ 73 72 74 Monitoring electrodes] Respiratory 17 16 18 Rate Blood Pressure Blood Pressure 138/75 H 129/72 123/72 [Left Brachial artery] O2 Saturation 99 100 100 12/24/23 12/24/23 12/24/23 14:56 15:00 16:00 Temperature 98.4 C H Heart Rate 90 Heart Rate [ 89 80 Monitoring electrodes] Respiratory 15 15 Rate Blood Pressure Blood Pressure 120/73 113/65 [Left Brachial artery] O2 Saturation 100 100 12/24/23 12/24/23 12/24/23 17:00 17:31 17:37 Temperature Heart Rate 79 79 Heart Rate [ 80 Monitoring electrodes] Respiratory 15 16 Rate Blood Pressure Blood Pressure 123/72 [Left Brachial artery] O2 Saturation 100 12/24/23 12/24/23 12/24/23 18:00 19:00 20:00 Temperature 37.2 C Heart Rate Heart Rate [ 84 86 78 Monitoring electrodes] Respiratory 14 15 16 Rate Blood Pressure Blood Pressure 142/82 H 119/67 122/75 [Left Brachial artery] O2 Saturation 100 100 100 12/24/23 12/24/23 12/24/23 20:54 20:59 21:00 Temperature Heart Rate 76 Heart Rate [ 78 Monitoring electrodes] Respiratory 17 Rate Blood Pressure 122/75 Blood Pressure 131/76 H [Left Brachial artery] O2 Saturation 98 12/24/23 12/24/23 12/24/23 22:00 22:54 23:00 Temperature Heart Rate 79 Heart Rate [ 74 73 Monitoring electrodes] Respiratory 19 17 Rate Blood Pressure Blood Pressure 118/73 126/74 [Left Brachial artery] O2 Saturation 97 98 12/25/23 12/25/23 12/25/23 00:00 01:00 02:00 Temperature 37.4 C Heart Rate Heart Rate [ 72 77 75 Monitoring electrodes] Respiratory 16 16 12 Rate Blood Pressure Blood Pressure 127/75 133/76 H 136/74 H [Left Brachial artery] O2 Saturation 99 98 99 12/25/23 12/25/23 12/25/23 02:18 03:00 04:00 Temperature 37.1 C Heart Rate 74 Heart Rate [ 97 87 Monitoring electrodes] Respiratory 25 H 17 Rate Blood Pressure Blood Pressure 178/88 H 129/81 H [Left Brachial artery] O2 Saturation 98 98 12/25/23 12/25/23 12/25/23 05:00 05:44 06:00 Temperature Heart Rate 70 Heart Rate [ 88 86 Monitoring electrodes] Respiratory 14 16 Rate Blood Pressure Blood Pressure 156/90 H 154/86 H [Left Brachial artery] O2 Saturation 100 100 12/25/23 12/25/23 12/25/23 06:04 07:00 07:40 Temperature Heart Rate 89 78 Heart Rate [ 82 Monitoring electrodes] Respiratory 22 12 Rate Blood Pressure Blood Pressure 145/83 H [Left Brachial artery] O2 Saturation 100 12/25/23 08:00 Temperature 36.9 C Heart Rate Heart Rate [ 77 Monitoring electrodes] Respiratory 15 Rate Blood Pressure Blood Pressure 130/75 [Left Brachial artery] O2 Saturation 99 Oxygen O2 Source Mechanical ventilator Oxygen Flow Rate 3 I&O (Last 24 Hrs): Intake and Output Totals x24h 12/23/23 12/24/23 12/25/23 23:59 23:59 23:59 Intake Total 6397.235 6574.821 3396.116 Output Total 1784 3355 958 Balance 4613.235 3219.821 2438.116 General: No acute distress HEENT: Atraumatic, Other (Endotracheal tube in good position.) Neck: Supple, No JVD Neuro: Non Focal Cardiovascular: Regular rate, Normal S1, Normal S2 Respiratory: Other (Fair air exchange in all lung carney no wheezing no crackles.) Abdomen: Normal bowel sounds, Soft, No tenderness Extremities: No cyanosis, No edema Skin: No rashes - Results Results: Laboratory Results WBC 13.4 x10^3/uL (4.8-10.8) H 12/21/23 04:27 RBC 3.28 10^6/uL (4.70-6.10) L 12/21/23 04:27 Hgb 9.2 g/dL (14.0-18.0) L 12/21/23 04:27 Hct 31.2 % (42.0-52.0) L 12/21/23 04:27 MCV 95.1 fL (80.0-94.0) H 12/21/23 04:27 MCH 28.0 pg (27.0-31.0) 12/21/23 04:27 MCHC 29.5 g/dL (32.0-36.0) L 12/21/23 04:27 RDW 15.3 % (12.0-15.0) H 12/21/23 04:27 Plt Count 285 10^3/uL (130-450) 12/21/23 04:27 MPV 9.0 fL (7.4-11.4) 12/21/23 04:27 Neut # (Auto) 12.6 10^3/uL (1.5-6.6) H 12/21/23 04:27 Lymph # (Auto) 0.2 10^3/uL (1.5-3.5) L 12/21/23 04:27 Kendall # (Auto) 0.4 10^3/uL (0.0-1.0) 12/21/23 04:27 Eos # (Auto) 0.0 10^3/uL (0.0-0.7) 12/21/23 04:27 Baso # (Auto) 0.0 10^3/uL (0.0-0.1) 12/21/23 04:27 Absolute Nucleated RBC 0.02 x10^3/uL 12/21/23 04:27 Total Counted 100 12/20/23 04:16 Band Neuts % (Manual) 16 % (0-10) H 12/20/23 04:16 Abnorm Lymph % (Manual) 0 % 12/20/23 04:16 Myelocytes % 1 % (-0) H 12/20/23 04:16 Nucleated RBC % 0.1 /100WBC 12/21/23 04:27 Neutrophils # (Manual) 16.4 10^3/uL (1.5-6.6) H 12/20/23 04:16 Lymphocytes # (Manual) 0.9 10^3/uL (1.5-3.5) L 12/20/23 04:16 Monocytes # (Manual) 0.0 10^3/uL (0.0-1.0) 12/20/23 04:16 Eosinophils # (Manual) 0.0 10^3/uL (0-0.7) 12/20/23 04:16 Basophils # (Manual) 0.0 10^3/uL (0-0.1) 12/20/23 04:16 Differential Comment MANUAL DIFFERENTIAL 12/20/23 04:16 Manual Slide Review Indicated 12/19/23 12:45 Platelet Estimate NORMAL (130-450,000) (NORMAL) 12/20/23 04:16 RBC Morph Micro Appear NORMAL APPEARANCE (NORMAL) 12/20/23 04:16 D-Dimer 266.7 ng/mL (200.0-255.0) H 12/19/23 12:45 Bld Gas Analysis Time 05:50 12/25/23 05:50 Sample Site RIGHT RADIAL 12/25/23 05:50 ABG pH 7.43 (7.35-7.45) 12/25/23 05:50 ABG pCO2 50 mmHg (34-45) H 12/25/23 05:50 ABG pO2 83 mmHg (80-100) 12/25/23 05:50 ABG HCO3 32.2 mmol/L (22.0-26.0) H 12/25/23 05:50 ABG Total CO2 33.7 MMOL/L (21.0-29.0) H 12/25/23 05:50 ABG O2 Saturation 96 % (94-98) 12/25/23 05:50 ABG Base Excess 6.8 mmol/L (-2.0-3.0) H 12/25/23 05:50 Moi Test POSITIVE 12/25/23 05:50 VBG pH 7.438 (7.31-7.41) H 12/25/23 05:15 VBG pCO2 52.9 mmHg (41-51) H 12/19/23 13:07 VBG pO2 68.0 mmHg (25-47) H 12/19/23 13:07 VBG HCO3 35.1 mmol/L (23-28) H 12/19/23 13:07 VBG Total CO2 36.7 mmol/L (24-29) H 12/19/23 13:07 VBG O2 Saturation 94.1 % (60-80) H 12/19/23 13:07 VBG Base Excess 9.3 mmol/L (-2 - +2) H 12/19/23 13:07 Ionized Calcium 1.17 mmol/L (1.15-1.33) 12/25/23 05:15 Respiration Rate 16 b/min 12/25/23 05:50 O2 Delivery Device VENTILATOR 12/25/23 05:50 O2 Liters/Min 3.00 LPM 12/19/23 14:45 Vent Mode ASSIST/CONTROL 12/25/23 05:50 FiO2 35.00 12/25/23 05:50 Tidal Volume 420 mL 12/25/23 05:50 PEEP 5 cmH2O 12/25/23 05:50 EPAP 5 cmH2O 12/20/23 11:10 IPAP 12 cmH2O 12/20/23 11:10 Sodium 142 mmol/L (135-145) 12/25/23 05:15 Potassium 4.6 mmol/L (3.5-4.5) H 12/25/23 05:15 Chloride 105 mmol/L (101-111) 12/25/23 05:15 Carbon Dioxide 34 mmol/L (21-32) H 12/25/23 05:15 Anion Gap 3.0 (6-13) L 12/25/23 05:15 BUN 43 mg/dL (6-20) H 12/25/23 05:15 Creatinine 0.6 mg/dL (0.6-1.3) 12/25/23 05:15 Estimated GFR (MDRD) 137 (>89) 12/25/23 05:15 Glucose 238 mg/dL (74-104) H 12/25/23 05:15 POC Whole Bld Glucose 230 mg/dL (70 - 100) H 12/25/23 05:54 Estimat Average Glucose 143 mg/dL (70-100) H 12/20/23 04:16 Hemoglobin A1c % 6.6 % (4.27-6.07) H 12/20/23 04:16 Lactic Acid 0.7 mmol/L (0.5-2.2) 12/20/23 13:35 Calcium 8.8 mg/dL (8.5-10.3) 12/25/23 05:15 Phosphorus 2.3 mg/dL (2.5-5.0) L 12/25/23 05:15 Magnesium 1.9 mg/dL (1.7-2.3) 12/25/23 05:15 Total Bilirubin 0.2 mg/dL (0.2-1.0) 12/24/23 04:53 AST 7 IU/L (10-42) L 12/24/23 04:53 ALT 15 IU/L (10-60) 12/24/23 04:53 Alkaline Phosphatase 68 IU/L (42-121) 12/24/23 04:53 Troponin I High Sens 792.0 ng/L (2.3-19.7) H* 12/21/23 15:55 C-React Prot High Sens 82.40 mg/L 12/19/23 12:45 Total Protein 5.1 g/dL (6.4-8.9) L 12/24/23 04:53 Albumin 2.7 g/dL (3.2-5.5) L 12/24/23 04:53 Globulin 2.4 g/dL (2.1-4.2) 12/24/23 04:53 Albumin/Globulin Ratio 1.1 (1.0-2.2) 12/24/23 04:53 Prealbumin 25 mg/dL (17-34) 12/24/23 04:53 Triglycerides 214 mg/dL (48-352) 12/24/23 04:53 Vitamin B12 983 pg/mL (180-914) H 12/20/23 04:16 Folate 7.2 ng/mL (5.90 - >24.8) 12/20/23 04:16 Nasal Adenovirus (PCR) NOT DETECTED 12/19/23 11:11 Nasal B. parapertussis DNA (PCR) NOT DETECTED 12/19/23 11:11 Nasal Coronavir 229E PCR NOT DETECTED 12/19/23 11:11 Nasal Coronavir HKU1 PCR NOT DETECTED 12/19/23 11:11 Nasal Coronavir NL63 PCR NOT DETECTED 12/19/23 11:11 Nasal Coronavir OC43 PCR NOT DETECTED 12/19/23 11:11 Nasal Enterovir/Rhinovir PCR NOT DETECTED 12/19/23 11:11 Nasal Influenza B PCR NOT DETECTED 12/19/23 11:11 Nasal Influenza A PCR NOT DETECTED 12/19/23 11:11 Nasal Parainfluen 1 PCR NOT DETECTED 12/19/23 11:11 Nasal Parainfluen 2 PCR NOT DETECTED 12/19/23 11:11 Nasal Parainfluen 3 PCR NOT DETECTED 12/19/23 11:11 Nasal Parainfluen 4 PCR NOT DETECTED 12/19/23 11:11 Nasal RSV (PCR) NOT DETECTED 12/19/23 11:11 Nasal Screen MRSA (PCR) NEGATIVE (NEGATIVE) 12/19/23 18:20 Nasal B.pertussis DNA PCR NOT DETECTED 12/19/23 11:11 Nasal C.pneumoniae (PCR) NOT DETECTED 12/19/23 11:11 Monica Human Metapneumo PCR NOT DETECTED 12/19/23 11:11 Nasal M.pneumoniae (PCR) NOT DETECTED 12/19/23 11:11 Nasal SARS-CoV-2 (PCR) NOT DETECTED 12/19/23 11:11
[2023-12-25] MEDS ORDERED: PROPOFOL 1000 MG/100 ML 1,000 MG/100 ML BOTTLE IV ONE (09:34)
[2023-12-25] MEDS: DEXMEDETOMIDINE 400 MCG in SODIUM CHLORIDE 0.9% 100ML 96 ML IV PRN (09:51)
[2023-12-25] MEDS ORDERED: DEXMEDETOMIDINE 400 MCG/100 ML 100 ML IV SCH (10:00)
[2023-12-25] MEDS: FUROSEMIDE 20 MG/2 ML VIAL IVP STA (10:33)
[2023-12-25] MEDS ORDERED: FUROSEMIDE 20 MG/2 ML VIAL IVP ONE (10:41)
[2023-12-25] MEDS: oxyCODONE 5 MG TABLET NG SCH (10:45)
[2023-12-25] MEDS: POTASSIUM CHLORIDE 20 MEQ/15 ML UDC NG SCH (11:39)
[2023-12-25] MEDS: NEUTRA-PHOS 250 MG TABLET NG SCH (12:04)
[2023-12-25] MEDS: fentaNYL 100 MCG/2 ML VIAL IVP PRN (12:12)
[2023-12-25] MEDS: lisinopriL 5 MG TABLET NG SCH (15:13)
[2023-12-25] MEDS: FUROSEMIDE 40 MG/4 ML VIAL IVP ONE (21:59)
[2023-12-26 04:30] LABS: CALCIUM, IONIZED 1.14 mmol/L (1.15-1.33); VBG PH 7.502 (7.31-7.41)
[2023-12-26 04:48] LABS: ALBUMIN 2.9 g/dL (3.2-5.5); ALBUMIN/GLOBULIN RATIO 1.1 (1.0-2.2); BILIRUBIN,TOTAL 0.3 mg/dL (0.2-1.0); CALCIUM 9.1 mg/dL (8.5-10.3); CREATININE 0.7 mg/dL (0.6-1.3); POTASSIUM 4.9 mmol/L (3.5-4.5); TOTAL PROTEIN 5.6 g/dL (6.4-8.9)
[2023-12-26 05:02] LABS: VANCOMYCIN,TROUGH 27.6 ug/mL
[2023-12-26 05:21] LABS: ABG BASE EXCESS 12.4 mmol/L (-2.0-3.0); ABG HCO3 36.6 mmol/L (22.0-26.0); ABG OXYGEN SATURATION 96 % (94-98); ABG PCO2 45 mmHg (34-45); ABG PH 7.53 (7.35-7.45); ABG PO2 81 mmHg (80-100); ALLEN TEST POSITIVE
[2023-12-26 05:22] LABS: ABG MODE OF VENTILATION ASSIST/CONTROL; ABG RESPIRATORY RATE 16 b/min
[2023-12-26] MEDS: INSULIN REGULAR HUMAN 300 UNIT/3 ML VIAL SUBQ SCH (06:07)
[2023-12-26] MEDS: acetaZOLAMIDE 250 MG TABLET PO SCH (08:08)
--- NOTE | 2023-12-26 08:17 | XRAY Report ---
PROCEDURE: Chest 1V INDICATIONS: Intubated patient not weaning from ventilator TECHNIQUE: One view of the chest was acquired. COMPARISON: Chest x-ray 12/24/2023 FINDINGS: Surgical changes and devices: Endotracheal tube, nasogastric tube and central line are unchanged. Ce rvical fixation plate is present.. Lungs and pleura: Persistent appearance of patchy opacities predominantly in the upper lobes similar compared to prior exam. Underlying increased pulmonary vascular suggestive edema cannot be excluded. Mediastinum: Mediastinal contours appear normal. Heart size is enlarged. Bones and chest wall: No suspicious bony lesions. Overlying soft tissues appear unremarkable. IMPRESSION: Stable interval exam with persistent bilateral pulmonary opacities. There is underlying edema cannot be excluded. Reviewed by: Kisha Pride MD on 12/26/2023 8:15 AM [facility] Approved by: Kisha Pride MD on 12/26/2023 8:15 AM [facility] Station ID: [id number]
--- NOTE | 2023-12-26 10:26 | PROVIDER PROGRESS NOTE ---
Subjective - Prog Note Date Prog Note Date: 12/26/23 Prog Note Time: 10:24 - Subjective Subjective: intubated and sedated. RN states wt this AM 74 kg, was 81 kg yesterday, diuresing well. Reports pt has significant amount of anxiety. Seems a bit improved since admission Current Medications - Current Medications Current Medications: Active Medications Generic Name Dose Route Start Last Admin Trade Name Freq PRN Reason Stop Dose Admin Acetazolamide 250 mg 12/26/23 09:00 12/26/23 08:08 Acetazolamide 250 Mg Tablet PO 250 mg DAILY DARCIE Administration Albuterol/Ipratropium 3 ml 12/19/23 19:35 12/24/23 03:09 Ipratropium/Albuterol 3 Ml Neb INH 3 ml Q4HR PRN Administration Wheezing Albuterol/Ipratropium 3 ml 12/23/23 12:00 12/26/23 05:12 Ipratropium/Albuterol 3 Ml Neb INH 3 ml RTQ4H DARCIE Administration Budesonide 0.5 mg 12/19/23 19:36 12/26/23 05:12 Budesonide 0.5 Mg/2 Ml Neb INH 0.5 mg RTBID DARCIE Administration Chlorhexidine Gluconate 15 ml 12/22/23 10:22 12/26/23 08:36 Chlorhexidine Gluconate 15 Ml Udc PO 15 ml BID DARCIE Administration Clopidogrel Bisulfate 75 mg 12/20/23 18:20 12/26/23 08:28 Clopidogrel 75 Mg Tablet PO 75 mg DAILY DARCIE Administration Enoxaparin Sodium 40 mg 12/24/23 10:00 12/26/23 08:31 Enoxaparin 40 Mg/0.4 Ml Syringe SUBQ 40 mg DAILY DARCIE Administration Famotidine 20 mg 12/19/23 21:00 12/26/23 08:39 Famotidine 20 Mg/2 Ml Vial IVP 20 mg BID DARCIE Administration Fentanyl 25 mcg 12/25/23 09:19 12/26/23 02:22 Fentanyl 100 Mcg/2 Ml Vial IVP 25 mcg Q4HR PRN Administration Severe Pain (Level 7-10) Fluticasone Propionate 2 sprays 12/19/23 21:00 12/25/23 21:04 Fluticasone Nasal [place] MONICA Not Given QPM DARCIE Gabapentin 900 mg 12/19/23 22:00 12/26/23 06:06 Gabapentin 300 Mg Capsule PO 900 mg TID DARCIE Administration Cefepime HCl 1 gm/ Sodium 100 mls @ 200 mls/hr 12/19/23 22:00 12/26/23 07:10 Chloride IV Infused Q8H DARCIE Infusion Doxycycline Hyclate 100 mg/ 100 mls @ 100 mls/hr 12/19/23 21:00 12/26/23 09:49 Sodium Chloride IV Infused Q12H DARCIE Infusion Vancomycin HCl 1 gm/ Sodium 250 mls @ 167 mls/hr 12/20/23 08:00 12/26/23 08:44 Chloride IV 0 mls/hr Q12H DARCIE Infusion Dexmedetomidine HCl 400 mcg/ 100 mls @ 4.15 mls/hr 12/25/23 09:23 12/26/23 07:51 Sodium Chloride IV 1.1 mcg/kg/hr .Q24H6M PRN 22.825 mls/hr Agitation Administration Protocol 0.2 MCG/KG/HR Insulin Glargine-yfgn 10 unit 12/24/23 09:32 12/26/23 08:48 Insulin Glargine-Yfgn 300 Unit/3 Ml Pen SUBQ 10 unit BID DARCIE Administration Insulin Human Regular 3 - 11 unit 12/26/23 06:00 12/26/23 06:07 Insulin Regular Human 300 Unit/3 Ml Vial SUBQ 5 unit Q6HR DARCIE Administration Protocol Lisinopril 5 mg 12/25/23 14:09 12/26/23 08:01 Lisinopril 5 Mg Tablet NG 5 mg DAILY DARCIE Administration Lorazepam 1 mg 12/20/23 09:30 12/26/23 00:38 Lorazepam 2 Mg/Ml Vial IVP 1 mg Q2H PRN Administration Anxiety Methadone HCl 10 mg 12/20/23 09:00 12/26/23 08:01 Methadone 5 Mg Tablet PO 10 mg DAILY DARCIE Administration Methylprednisolone 40 mg 12/24/23 14:00 12/26/23 06:07 Methylprednisolone Succinate 40 Mg/Ml Vial IVP 40 mg TID DARCIE Administration Metoprolol Tartrate 25 mg 12/24/23 09:00 12/26/23 08:02 Metoprolol Tartrate 25 Mg Tablet PO 25 mg BID DARCIE Administration Montelukast Sodium 10 mg 12/19/23 21:00 02/27/24 21:03 Montelukast 10 Mg Tablet PO 10 mg QPM DARCIE Administration Nitroglycerin 0.5 inch 12/24/23 13:00 12/26/23 06:47 Nitroglycerin 2% Paste TOP 0.5 inch Q6H DARCIE Administration Ondansetron HCl 4 mg 12/19/23 17:32 Ondansetron 4 Mg/2 Ml Vial IVP Q6HR PRN Nausea / Vomiting Theophylline 1 each 12/19/23 21:00 Anhydrous [ PO Theophylline Er] 300 BID DARCIE Mg Tab.Er.12h Phenol/Menthol 2 sprays 12/19/23 20:31 12/19/23 22:29 Phenol Throat [place] 177 Ml MM 2 sprays Q2HR PRN Administration Throat Pain Potassium Chloride 20 meq 12/25/23 11:00 12/26/23 08:22 Potassium Chloride 20 Meq/15 Ml Udc NG 20 meq DAILYWM DARCIE Administration Sodium Chloride 10 ml 12/20/23 01:00 12/26/23 08:41 Sodium Chloride Flush 0.9% 10 Ml Syringe IVP 10 ml 0100,0900,1700 DARCIE Administration Sodium Chloride 10 ml 12/19/23 17:32 12/26/23 04:20 Sodium Chloride Flush 0.9% 10 Ml Syringe IVP 20 ml PRN PRN Administration NEEDED PER PROVIDER ORDERS Albuterol Sulfate [Proair Hfa Inhaler] 2 puffs INH Q4H PRN 03/30/18 Fluticasone [Flonase] 1 spray MONICA BID 05/07/21 Gabapentin [Neurontin] 900 mg PO TID 05/07/21 Furosemide [Lasix] 20 mg PO BID 05/25/21 Montelukast [Singulair] 10 mg PO QPM 05/25/21 Methadone [Methadone Hcl] 10 mg PO QDAC 12/19/23 Theophylline Anhydrous [Theophylline ER] 300 mg PO BID 12/19/23 Azithromycin 500 mg PO UD 12/20/23 Beclomethasone Dipropionate [Qvar Redihaler (80 mcg)] 1 puffs INH BID 12/20/23 Budesonide/Formoterol Fumarate [Symbicort 160-4.5 Mcg Inhaler] 2 puffs INH BID 12/20/23 Ferrous Sulfate [Feosol] 325 mg PO DAILY 12/20/23 Fexofenadine HCl 180 mg PO DAILY 12/20/23 Ipratropium [place] 2 spray MONICA TID 12/20/23 Ipratropium/Albuterol [Combivent Respimat] 1 puffs INH QID 12/20/23 Ipratropium/Albuterol [Duoneb] 3 ml PO Q4H PRN 12/20/23 Methadone [Methadone Hcl] 5 mg PO QPM 12/20/23 Multivitamin with Minerals [Multivitamins with Minerals] 1 tab PO DAILY 12/20/23 Nystatin [Mycostatin] 5 ml PO QID 12/20/23 Pantoprazole [Protonix] 40 mg PO BID 12/20/23 Sertraline [Zoloft] 25 mg PO DAILY 12/20/23 Sulfamethox/Trimeth 800/160 [Bactrim Ds] 1 tab PO UD 12/20/23 Umeclidinium [place] [Incruse Ellipta] 1 inh INH DAILY 12/20/23 guaiFENesin [Chest Congestion Relief] 400 mg PO Q6H PRN 12/20/23 Objective - Vital Signs/Intake & Output Reviewed Vital Signs: Yes Vital Signs: Vital Signs x48h Temp Pulse Pulse Resp BP BP Pulse Ox 12/26/23 09:46 80 12/26/23 09:00 78 16 118/111 H 98 12/26/23 08:02 170/97 H 12/26/23 08:00 37.5 C 85 18 170/97 H 98 12/26/23 07:00 91 21 144/89 H 98 12/26/23 06:53 92 12/26/23 06:00 95 19 131/81 H 99 12/26/23 05:27 79 21 12/26/23 05:00 86 18 150/92 H 98 12/26/23 04:55 94 12/26/23 04:00 82 18 128/80 100 12/26/23 03:57 96 12/26/23 03:00 81 16 129/84 H 100 Intake & Output: Intake & Output 12/23/23 12/24/23 12/25/23 12/26/23 23:59 23:59 23:59 23:59 Intake Total 6397.235 6574.821 6725.499 1296.051 Output Total 1784 3355 5708 3690 Balance 4613.235 3219.821 1017.499 -2393.949 - Objective General Appearance: positive: Other (Intubated, sedated, tachycardic, tachypneic, hypertensive) Eyes Bilateral: positive: PERRL, No scleral icterus ENT: positive: ENT inspection nml Respiratory: positive: Wheezes, Rhonchi, Other (throughout. Vent settings AC/VC rate 16, VT 420, PEEP 5, FiO2 35%) Cardiovascular: positive: Tachycardia (difficult to hear due to lung sounds) Peripheral Pulses: 1+ Dorsalis pedis (L), 2+ Radial (R), 2+ Radial (L) Abdomen: positive: Non-tender, No organomegaly, Nml bowel sounds, No distention Skin: positive: No rash, Warm, Other (dressing intact to RLE (not removed), bilateral hand edema, scattered areas of ecchymoses on arms, central line present in R neck) Neurologic/Psychiatric: positive: Other (intubated, unable to assess, pupils equal, sluggish, reactive to light) - Lab Results Fish Bones: 12/21/23 04:27 12/26/23 04:15 Other Labs: Lab Results x24hrs 12/26/23 12/26/23 12/26/23 Range/Units 05:58 05:10 04:45 Bld Gas Analysis Time 05:18 Sample Site RIGHT RADIAL ABG pH 7.53 H (7.35-7.45) ABG pCO2 45 (34-45) mmHg ABG pO2 81 (80-100) mmHg ABG HCO3 36.6 H (22.0-26.0) mmol/L ABG Total CO2 38.0 H (21.0-29.0) MMOL/L ABG O2 Saturation 96 (94-98) % ABG Base Excess 12.4 H (-2.0-3.0) mmol/L Moi Test POSITIVE VBG pH (7.31-7.41) Ionized Calcium (1.15-1.33) mmol/L Respiration Rate 16 b/min O2 Delivery Device VENTILATOR Vent Mode ASSIST/CONTROL FiO2 35.00 Tidal Volume 420 mL PEEP 5 cmH2O Sodium (135-145) mmol/L Potassium (3.5-4.5) mmol/L Chloride (101-111) mmol/L Carbon Dioxide (21-32) mmol/L Anion Gap (6-13) BUN (6-20) mg/dL Creatinine (0.6-1.3) mg/dL Estimated GFR (MDRD) (>89) Glucose (74-104) mg/dL POC Whole Bld Glucose 214 H (70 - 100) mg/dL Calcium (8.5-10.3) mg/dL Phosphorus 3.2 (2.5-5.0) mg/dL Magnesium (1.7-2.3) mg/dL Total Bilirubin (0.2-1.0) mg/dL AST (10-42) IU/L ALT (10-60) IU/L Alkaline Phosphatase (42-121) IU/L Total Protein (6.4-8.9) g/dL Albumin (3.2-5.5) g/dL Globulin (2.1-4.2) g/dL Albumin/Globulin Ratio (1.0-2.2) Prealbumin (17-34) mg/dL Last Dose Date Last Dose Time Vancomycin Trough ug/mL 12/26/23 12/26/23 12/26/23 Range/Units 04:15 04:15 04:15 Bld Gas Analysis Time Sample Site ABG pH (7.35-7.45) ABG pCO2 (34-45) mmHg ABG pO2 (80-100) mmHg ABG HCO3 (22.0-26.0) mmol/L ABG Total CO2 (21.0-29.0) MMOL/L ABG O2 Saturation (94-98) % ABG Base Excess (-2.0-3.0) mmol/L Moi Test VBG pH 7.502 H (7.31-7.41) Ionized Calcium 1.14 L (1.15-1.33) mmol/L Respiration Rate b/min O2 Delivery Device Vent Mode FiO2 Tidal Volume mL PEEP cmH2O Sodium 139 (135-145) mmol/L Potassium 4.9 H (3.5-4.5) mmol/L Chloride 98 L (101-111) mmol/L Carbon Dioxide 38 H (21-32) mmol/L Anion Gap 3.0 L (6-13) BUN 52 H (6-20) mg/dL Creatinine 0.7 (0.6-1.3) mg/dL Estimated GFR (MDRD) 115 (>89) Glucose 234 H (74-104) mg/dL POC Whole Bld Glucose (70 - 100) mg/dL Calcium 9.1 (8.5-10.3) mg/dL Phosphorus (2.5-5.0) mg/dL Magnesium 2.0 (1.7-2.3) mg/dL Total Bilirubin 0.3 (0.2-1.0) mg/dL AST 12 (10-42) IU/L ALT 19 (10-60) IU/L Alkaline Phosphatase 60 (42-121) IU/L Total Protein 5.6 L (6.4-8.9) g/dL Albumin 2.9 L (3.2-5.5) g/dL Globulin 2.7 (2.1-4.2) g/dL Albumin/Globulin Ratio 1.1 (1.0-2.2) Prealbumin 32 (17-34) mg/dL Last Dose Date 12/25/23 Last Dose Time 22:11 Vancomycin Trough 27.6 H* ug/mL 12/26/23 12/25/23 12/25/23 Range/Units 00:12 21:00 18:44 Bld Gas Analysis Time Sample Site ABG pH (7.35-7.45) ABG pCO2 (34-45) mmHg ABG pO2 (80-100) mmHg ABG HCO3 (22.0-26.0) mmol/L ABG Total CO2 (21.0-29.0) MMOL/L ABG O2 Saturation (94-98) % ABG Base Excess (-2.0-3.0) mmol/L Moi Test VBG pH (7.31-7.41) Ionized Calcium (1.15-1.33) mmol/L Respiration Rate b/min O2 Delivery Device Vent Mode FiO2 Tidal Volume mL PEEP cmH2O Sodium (135-145) mmol/L Potassium 4.9 H (3.5-4.5) mmol/L Chloride (101-111) mmol/L Carbon Dioxide (21-32) mmol/L Anion Gap (6-13) BUN (6-20) mg/dL Creatinine (0.6-1.3) mg/dL Estimated GFR (MDRD) (>89) Glucose (74-104) mg/dL POC Whole Bld Glucose 287 H 193 H (70 - 100) mg/dL Calcium (8.5-10.3) mg/dL Phosphorus (2.5-5.0) mg/dL Magnesium (1.7-2.3) mg/dL Total Bilirubin (0.2-1.0) mg/dL AST (10-42) IU/L ALT (10-60) IU/L Alkaline Phosphatase (42-121) IU/L Total Protein (6.4-8.9) g/dL Albumin (3.2-5.5) g/dL Globulin (2.1-4.2) g/dL Albumin/Globulin Ratio (1.0-2.2) Prealbumin (17-34) mg/dL Last Dose Date Last Dose Time Vancomycin Trough ug/mL 12/25/23 Range/Units 11:53 Bld Gas Analysis Time Sample Site ABG pH (7.35-7.45) ABG pCO2 (34-45) mmHg ABG pO2 (80-100) mmHg ABG HCO3 (22.0-26.0) mmol/L ABG Total CO2 (21.0-29.0) MMOL/L ABG O2 Saturation (94-98) % ABG Base Excess (-2.0-3.0) mmol/L Moi Test VBG pH (7.31-7.41) Ionized Calcium (1.15-1.33) mmol/L Respiration Rate b/min O2 Delivery Device Vent Mode FiO2 Tidal Volume mL PEEP cmH2O Sodium (135-145) mmol/L Potassium (3.5-4.5) mmol/L Chloride (101-111) mmol/L Carbon Dioxide (21-32) mmol/L Anion Gap (6-13) BUN (6-20) mg/dL Creatinine (0.6-1.3) mg/dL Estimated GFR (MDRD) (>89) Glucose (74-104) mg/dL POC Whole Bld Glucose 220 H (70 - 100) mg/dL Calcium (8.5-10.3) mg/dL Phosphorus (2.5-5.0) mg/dL Magnesium (1.7-2.3) mg/dL Total Bilirubin (0.2-1.0) mg/dL AST (10-42) IU/L ALT (10-60) IU/L Alkaline Phosphatase (42-121) IU/L Total Protein (6.4-8.9) g/dL Albumin (3.2-5.5) g/dL Globulin (2.1-4.2) g/dL Albumin/Globulin Ratio (1.0-2.2) Prealbumin (17-34) mg/dL Last Dose Date Last Dose Time Vancomycin Trough ug/mL ABX Reporting Has patient been on IV antibiotics over the past 48 hours?: Yes Assessment/Plan - Problem List (1) Acute respiratory failure with hypoxia and hypercapnia Impression: Prior notes give h/o 2L O2 at home at baseline, was obtunded on admission so unclear if he still wears O2 at home. Recent admission to [facility], records reviewed. He had recent treatment for hospital-acquired pneumonia and influenza A in early November. Had hypercapnia on admit CO2 70, trial Bipap, then intubated. Vent: AC 16, TV 420, PEEP 5, FiO2 35%. Suspect cause multifactorial from pneumonia in setting of underlying asthma, EN, HFmrEF, and R-sided HF. Was intubated ~2y ago for Covid and required trach and prolonged weaning. Was on max dose of propofol and fentanyl gtts and was still very agitated, changed to Prec edex gtt with prn meds for agitation/anxiety. Plan: Wean vent as able, perform daily awakening and SBT when alkalosis and fluid overload improved Continue Precedex, daily awakening trials ABG this AM: 7.53/45/81/36.6. Suspect metabolic alkalosis is due to diuresis VAP prevention: routine oral care, HOB>30 degrees PUD prophylaxis: Pepcid (2) On mechanically assisted ventilation Impression: As above. Most recent CXR shows ETT in adequate position. Patient remains critically ill and has a life-threatening condition requiring mechanical ventilation and critical care services. (3) Community acquired pneumonia Impression: CXR with bilateral infiltrates with concern for pneumonia. Viral respiratory panel negative. Had recent treatment for influenza A and hospital acquired pneumonia, so a recurrent pneumonia would be unlikely - infiltrates on CXR could be due to fluid overload. Plan: Antibiotics for his foot will also cover pneumonia if present Continue steroids VAP prevention bundle Qualifiers: Lung location: unspecified part of lung (4) Severe persistent asthma Impression: Likely exacerbated by pneumonia. Is on theophylline at home (on hold). Discharge summary from [facility] notes he is on 45 mg prednisone daily although this is not on his home list here. Plan: Continue Singulair, Pulmicort nebs, steroids, Duonebs Qualifiers: Asthma complication type: with acute exacerbation Qualified Code(s): J45.51 - Severe persistent asthma with (acute) exacerbation (5) EN (obstructive sleep apnea) Impression: On cpap at home. Now intubated. Plan: resume cpap when extubated (6) Hypertension Impression: BP has been labile. Not on anti-hypertensives at home. Suspect anxiety and pain may be contributing to elevated BP. Plan: Currently on metoprolol, lisinopril, and nitro paste. Monitor BP. Qualifiers: Hypertension type: unspecified Qualified Code(s): I10 - Essential (primary) hypertension (7) DM type 2 (diabetes mellitus, type 2) Impression: Not on medications at home. Suspect glucose has been higher more recently due to steroids for his respiratory issues. A1c this admit was 6.6. Plan: continue insulin protocol and adjust dosing as needed Qualifiers: Diabetes mellitus detention insulin use: without terminal operations supervisor use Diabetes mellitus complication status: with neurologic complications Diabetes mellitus complication detail: with polyneuropathy Qualified Code(s): E11.42 - Type 2 diabetes mellitus with diabetic polyneuropathy (8) Osteomyelitis Impression: Ulceration R foot. Has been present since at least 06/2023. Goes to [facility] wound clinic. Note 12/19/[address] Brown: debridement of all heel ulcers and sent bone sample for culture (done at [facility]). He was admitted to [facility] 11/19/23 to 12/06/23 and treated for foot cellulitis, osteo was considered possible. Plan: ED spoke to ID Dr. Kearney who recommended below regimen. Continue cefepime, vancomycin and doxycycline. Last vanco trough was elevated, dose adjustment per pharmacy Follow up on bone sample culture results Surgical consult for wound care orders and evaluation Qualifiers: Osteomyelitis type: other chronic Osteomyelitis location: foot Laterality: right Qualified Code(s): M86.671 - Other chronic osteomyelitis, right ankle and foot (9) Heart failure with mid-range ejection fraction (HFmEF) Impression: Echo 12/19/23 with LVEF 45-50%, reduced from echo in 2019 which showed EF 65%. On Lasix at home. Wt has decreased ~7 kg from yesterday. Plan: Continue diuresis Monitor lytes while actively diuresing Continue ACEi and beta ya (10) Dysfunction of right cardiac ventricle Impression: Echo 12/19/23 showed dilated RV and decreased RV systolic function with RV fract ional area exchange of 30% Plan: continue diuresis if continues to be hypervolemic (11) Chronic back pain Impression: Uses cannabis edibles, gabapentin, methadone at home. Plan: continue home gabapentin dosing consider increasing methadone dosing here to home dose Qualifiers: Back pain location: low back pain Back pain laterality: left Sciatica presence: without sciatica Qualified Code(s): M54.50 - Low back pain, unspecified; G89.29 - Other chronic pain (12) Type 2 [place] (myocardial infarction) Impression: Troponins elevated on admission, EKG with no acute ischemic changes. Suspect elevated troponins due to demand from respiratory failure. Allergy to aspirin. Plan: Continue Plavix.
--- NOTE | 2023-12-26 10:32 | PHARMACY PROGRESS NOTE ---
- Therapy Status Vancomycin regimen day #: 8 Therapy status: Trough supratherapeutic Basis for treatment: Empirical Treatment indication: ACUTE RESPIRATORY FAILURE, PNA, OSTEO ([facility] ID RECOMMENDED ABXS) Trough goal: 400-600 Concurrent antibiotics: CEFEPIME, DOXYCYCLINE - POP Risk Risk level for Acute Kidney Injury: High Acute Kidney Injury risk factors: Other nephrotoxic agents, Duration >7 days, Goal trough >15, Admission to ICU (PATIENT FOLLOWED BY [facility] ID WHO RECOMMENDED CURRENT ABX REGIMEN) - Monitoring and Recommendation Clinical response to treatment: Lab Results 12/19/23 12:45 BUN 24 H Creatinine 1.2 Estimated GFR (MDRD) 62 L Cultures 12/19/23 13:40 Blood - Right Hand Blood Culture - Final NO GROWTH AFTER 5 DAYS 12/19/23 13:43 Blood - Left Hand Blood Culture - Final NO GROWTH AFTER 5 DAYS Next trough due (date/time): 12/27/23 AM Areas for additional monitoring: IV to PO when appropriate, Therapy de- escalation based on culture results, Acute Kidney Injury Pharmacy recommendation: Hold dose (VANCOMYCIN TROUGH SUPRATHERAPEUTIC ON 12/26 AM. ASSUMPTION THAT VANCOMYCIN IS AT SS. I/O REV'D. AFEBRILE. WBC TRENDING DOWN. SCR REMAINS STABLE. BCX2 NGTD X5D. WILL HOLD VANCOMYCIN DOSES TODAY. REPEAT RANDOM LEVEL AM TO ENSURE CLEARANCE AND THEN RESUME AND/OR DECREASE DOSE.)
[2023-12-26 14:33] LABS: VBG PH 7.474 (7.31-7.41)
[2023-12-26 14:34] LABS: VBG BASE EXCESS 5.9 mmol/L (-2 - +2); VBG OXYGEN SATURATION 98.5 % (60-80); VBG PCO2 41.8 mmHg (41-51); VBG PO2 133.9 mmHg (25-47); VBG TOTAL CO2 31.3 mmol/L (24-29)
[2023-12-26] MEDS ORDERED: DEXMEDETOMIDINE 1,000 MCG in SODIUM CHLORIDE 0.9% 240 ML IV PRN (15:37)
--- NOTE | 2023-12-26 17:15 | CONSULTATION NOTE ---
Referring Provider Consult Date: 12/26/23 Chief Complaint - Chief Complaint Chief Complaint: patient intubated and sedated History of Present Illness - History Obtained From Records Reviewed: yes History obtained from: chart review Exam Limitations: none - History of Present Illness HPI Comment/Other: history pulmonary disease and foot ulcers. seen in wound clinic [facility] 12/18/2023. small clean wounds. minimal debridment needed. dry dressing applied. he has since had respiratory failure. consult request for foot ulcer/ dressing care History - Past Medical History Cardiovascular: reports: Hypertension Respiratory: reports: Asthma, Sleep apnea, CPAP use Neuro: reports: None Endocrine/Autoimmune: reports: Type 2 diabetes GI: reports: GERD : reports: Kidney stones HEENT: reports: None Psych: reports: None Musculoskeletal: reports: Chronic back pain Derm: reports: Other (Has chronic diabetic foot ulcers, has toe amputations) MRSA Hx?: No - Past Surgical History General: reports: Colonoscopy HEENT: reports: Other Derm: reports: Other (toe amputations) - Family & Social History Family History: Mother: Alive and Well, Asthma Family History Comment/Other: From a previous encounter: he reported his mother also has asthma. His son has irritable bowel syndrome. Living arrangement: assisted Social History Notes: From a previous encounter: Patient used to live at home with his . They were for just over a year. 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 He denied any smoking and reported rare alcohol use. He does use edible cannabis - Substance History Use: Uses substance without health or social issues: Cannabis (Edibles) - POLST Patient has POLST: No POLST Status: Full Code Meds/Allgy - Home Medications Home Medications: Ambulatory Orders Medication Instructions Recorded Confirmed Albuterol Sulfate [Proair Hfa 2 puffs INH Q4H PRN 03/30/18 12/20/23 Inhaler] Fluticasone [Flonase] 1 spray MONICA BID 05/07/21 12/20/23 Gabapentin [Neurontin] 900 mg PO TID 05/07/21 12/20/23 Furosemide [Lasix] 20 mg PO BID 05/25/21 12/20/23 Montelukast [Singulair] 10 mg PO QPM 05/25/21 12/20/23 Methadone [Methadone Hcl] 10 mg PO QDAC 12/19/23 12/20/23 Theophylline Anhydrous 300 mg PO BID 12/19/23 12/20/23 [Theophylline ER] Azithromycin 500 mg PO UD 12/20/23 12/20/23 Beclomethasone Dipropionate [Qvar 1 puffs INH BID 12/20/23 12/20/23 Redihaler (80 mcg)] Budesonide/Formoterol Fumarate 2 puffs INH BID 12/20/23 12/20/23 [Symbicort 160-4.5 Mcg Inhaler] Ferrous Sulfate [Feosol] 325 mg PO DAILY 12/20/23 12/20/23 Fexofenadine HCl 180 mg PO DAILY 12/20/23 12/20/23 Ipratropium [place] 2 spray MONICA TID 12/20/23 12/20/23 Ipratropium/Albuterol [Combivent 1 puffs INH QID 12/20/23 12/20/23 Respimat] Ipratropium/Albuterol [Duoneb] 3 ml PO Q4H PRN 12/20/23 12/20/23 Methadone [Methadone Hcl] 5 mg PO QPM 12/20/23 12/20/23 Multivitamin with Minerals 1 tab PO DAILY 12/20/23 12/20/23 [Multivitamins with Minerals] Nystatin [Mycostatin] 5 ml PO QID 12/20/23 12/20/23 Pantoprazole [Protonix] 40 mg PO BID 12/20/23 12/20/23 Sertraline [Zoloft] 25 mg PO DAILY 12/20/23 12/20/23 Sulfamethox/Trimeth 800/160 1 tab PO UD 12/20/23 12/20/23 [Bactrim Ds] Umeclidinium [place] [Incruse 1 inh INH DAILY 12/20/23 12/20/23 Ellipta] guaiFENesin [Chest Congestion 400 mg PO Q6H PRN 12/20/23 12/20/23 Relief] - Allergies Allergies/Adverse Reactions: Allergies Allergy/AdvReac Type Severity Reaction Status Date / Time aspirin Allergy Unknown Verified 12/19/23 11:33 cyclobenzaprine AdvReac Hallucinati Verified 12/19/23 11:33 [From Flexeril] ons ibuprofen AdvReac Respiratory Verified 12/19/23 11:33 pseudoephedrine AdvReac Unknown Verified 12/19/23 11:33 [From Entex T] Exam - Vital Signs Vital Signs: Vital Signs x48h Temp Pulse Pulse Resp BP Pulse Ox 12/26/23 16:00 37.4 C 88 21 120/75 98 12/26/23 15:00 90 27 H 132/74 H 101 H 12/26/23 14:41 88 20 12/26/23 14:00 99.6 C H 91 18 132/74 H 100 12/26/23 13:19 82 12/26/23 13:00 81 20 130/84 H 12/26/23 12:00 80 16 137/85 H 98 12/26/23 11:00 78 16 147/93 H 99 12/26/23 10:52 78 16 12/26/23 10:00 77 16 159/96 H 98 12/26/23 09:46 80 - Physical Exam General Appearance: positive: No acute distress Respiratory: positive: No respiratory distress, Other (on vent) Extremities: positive: Other (left foot scar on top and second toe has been amputated. no infection or open sores right foot very small clean ulcers. no purulence, cellulitis, necrotic tissue, edema) Conclusion/Plan - Problem List (1) Non-pressure chronic ulcer of other part of right foot with bone involvement without evidence of necrosis Conclusion/Plan: very small clean ulcers without purulence, necrotic tissue, cellulitis agree with dressing care per DR Ferro and Maggie Muhammad. note 12/18/2023 1320. dry dressing, abd, kerlex, nikia change every few days and prn. - Lab Results Fish Bones: 12/21/23 04:27 12/26/23 04:15
[2023-12-26] MEDS ORDERED: DEXMEDETOMIDINE 400 MCG in SODIUM CHLORIDE 0.9% 100ML 96 ML IV PRN (17:30)
[2023-12-27 05:08] LABS: VBG PH 7.435 (7.31-7.41)
[2023-12-27 05:09] LABS: CALCIUM, IONIZED 1.18 mmol/L (1.15-1.33)
[2023-12-27 05:26] LABS: ALBUMIN 2.9 g/dL (3.2-5.5); ALBUMIN/GLOBULIN RATIO 1.1 (1.0-2.2); BILIRUBIN,TOTAL 0.3 mg/dL (0.2-1.0); CALCIUM 9.1 mg/dL (8.5-10.3); CREATININE 0.6 mg/dL (0.6-1.3); MAGNESIUM 2.2 mg/dL (1.7-2.3); PHOSPHORUS 2.9 mg/dL (2.5-5.0); POTASSIUM 4.9 mmol/L (3.5-4.5); TOTAL PROTEIN 5.5 g/dL (6.4-8.9)
[2023-12-27 05:43] LABS: VANCOMYCIN,RANDOM 11.9 ug/mL
--- NOTE | 2023-12-27 07:58 | PHARMACY PROGRESS NOTE ---
- Therapy Status Vancomycin regimen day #: 9 Therapy status: Trough therapeutic Basis for treatment: Empirical Treatment indication: ACUTE RESPIRATORY FAILURE, PNA, OSTEO ([facility] ID RECOMMENDED ABXS) Trough goal: 400-600 Concurrent antibiotics: CEFEPIME, DOXYCYCLINE - POP Risk Risk level for Acute Kidney Injury: High Acute Kidney Injury risk factors: Other nephrotoxic agents, Duration >7 days, Goal trough >15, Admission to ICU (PATIENT FOLLOWED BY [facility] ID WHO RECOMMENDED CURRENT ABX REGIMEN) - Monitoring and Recommendation Clinical response to treatment: Lab Results 12/19/23 12:45 BUN 24 H Creatinine 1.2 Estimated GFR (MDRD) 62 L Cultures 12/19/23 13:40 Blood - Right Hand Blood Culture - Final NO GROWTH AFTER 5 DAYS 12/19/23 13:43 Blood - Left Hand Blood Culture - Final NO GROWTH AFTER 5 DAYS Areas for additional monitoring: IV to PO when appropriate, Therapy de- escalation based on culture results, Acute Kidney Injury Pharmacy recommendation: Continue current regime (DOSES HELD 12/26 D/T SUPRATHERAPEUTIC TROUGH. REPEAT LEVEL THIS AM - THERAPEUTIC. PATIENT CLEARING VANCO. RENAL FX REMAINS STABLE. I/O REV'D. CONTINUE ON VANCO 1G Q12H. CONSIDERI NG CHECKING NEXT TROUGH A LITTLE EARLIER.)
[2023-12-27] MEDS: methylPREDNISolone SUCCINATE 40 MG/ML VIAL IVP SCH (08:47)
[2023-12-27] MEDS: VANCOMYCIN INJ 1 GM in SODIUM CHLORIDE 0.9% 250 ML IV SCH (08:50)
[2023-12-27] MEDS: METHADONE 5 MG TABLET PO SCH (08:54)
--- NOTE | 2023-12-27 11:03 | PROVIDER PROGRESS NOTE ---
Subjective - Prog Note Date Prog Note Date: 12/27/23 Prog Note Time: 11:01 - Subjective Subjective: Unable to obtain due to mental status, Precedex has been off since ~1645 on 12/26, not yet waking up and following commands, doing well on spontaneous mode o n ventilator, noted ~7L UOP yesterday Current Medications - Current Medications Current Medications: Active Medications Generic Name Dose Route Start Last Admin Trade Name Freq PRN Reason Stop Dose Admin Albuterol/Ipratropium 3 ml 12/19/23 19:35 12/24/23 03:09 Ipratropium/Albuterol 3 Ml Neb INH 3 ml Q4HR PRN Administration Wheezing Albuterol/Ipratropium 3 ml 12/23/23 12:00 12/27/23 10:47 Ipratropium/Albuterol 3 Ml Neb INH 3 ml RTQ4H DARCIE Administration Budesonide 0.5 mg 12/19/23 19:36 12/27/23 06:10 Budesonide 0.5 Mg/2 Ml Neb INH 0.5 mg RTBID DARCIE Administration Chlorhexidine Gluconate 15 ml 12/22/23 10:22 12/27/23 08:47 Chlorhexidine Gluconate 15 Ml Udc PO 15 ml BID DARCIE Administration Clopidogrel Bisulfate 75 mg 12/20/23 18:20 12/27/23 08:56 Clopidogrel 75 Mg Tablet PO 75 mg DAILY DARCIE Administration Enoxaparin Sodium 40 mg 12/24/23 10:00 12/27/23 08:58 Enoxaparin 40 Mg/0.4 Ml Syringe SUBQ 40 mg DAILY DARCIE Administration Famotidine 20 mg 12/19/23 21:00 12/27/23 08:52 Famotidine 20 Mg/2 Ml Vial IVP 20 mg BID DARCIE Administration Fentanyl 25 mcg 12/25/23 09:19 12/26/23 21:00 Fentanyl 100 Mcg/2 Ml Vial IVP 25 mcg Q4HR PRN Administration Severe Pain (Level 7-10) Fluticasone Propionate 2 sprays 12/19/23 21:00 12/26/23 21:13 Fluticasone Nasal Roxana MONICA 2 sprays QPM DARCIE Administration Gabapentin 900 mg 12/19/23 22:00 12/27/23 05:53 Gabapentin 300 Mg Capsule PO 900 mg TID DARCIE Administration Cefepime HCl 1 gm/ Sodium 100 mls @ 200 mls/hr 12/19/23 22:00 12/27/23 06:25 Chloride IV Infused Q8H DARCIE Infusion Doxycycline Hyclate 100 mg/ 100 mls @ 100 mls/hr 12/19/23 21:00 12/27/23 09:10 Sodium Chloride IV 100 mls/hr Q12H DARCIE Administration Dexmedetomidine HCl 400 mcg/ 100 mls @ 22.825 mls/hr 12/26/23 17:30 Sodium Chloride IV .Q4H23M PRN Agitation Protocol Vancomycin HCl 1 gm/ Sodium 250 mls @ 167 mls/hr 12/27/23 09:00 12/27/23 08:50 Chloride IV 167 mls/hr Q12H DARCIE Administration Insulin Glargine-yfgn 10 unit 12/24/23 09:32 12/27/23 08:43 Insulin Glargine-Yfgn 300 Unit/3 Ml Pen SUBQ 10 unit BID DARCIE Administration Insulin Human Regular 3 - 11 unit 12/26/23 06:00 12/27/23 05:52 Insulin Regular Human 300 Unit/3 Ml Vial SUBQ 7 unit Q6HR DARCIE Administration Protocol Lisinopril 5 mg 12/25/23 14:09 12/27/23 08:55 Lisinopril 5 Mg Tablet NG 5 mg DAILY DARCIE Administration Lorazepam 1 mg 12/20/23 09:30 12/27/23 05:13 Lorazepam 2 Mg/Ml Vial IVP 1 mg Q2H PRN Administration Anxiety Methadone HCl 5 mg 12/27/23 09:00 12/27/23 08:54 Methadone 5 Mg Tablet PO 5 mg DAILY DARCIE Administration Methylprednisolone 40 mg 12/27/23 09:00 12/27/23 08:47 Methylprednisolone Succinate 40 Mg/Ml Vial IVP 40 mg DAILY DARCIE Administration Metoprolol Tartrate 25 mg 12/24/23 09:00 12/27/23 08:55 Metoprolol Tartrate 25 Mg Tablet PO 25 mg BID DARCIE Administration Nitroglycerin 0.5 inch 12/24/23 13:00 12/27/23 06:54 Nitroglycerin 2% Paste TOP 0.5 inch Q6H DARCIE Administration Theophylline 1 each 12/19/23 21:00 Anhydrous [ PO Theophylline Er] 300 BID DARCIE Mg Tab.Er.12h Phenol/Menthol 2 sprays 12/19/23 20:31 12/19/23 22:29 Phenol Throat Roxana 177 Ml MM 2 sprays Q2HR PRN Administration Throat Pain Sodium Chloride 10 ml 12/20/23 01:00 12/27/23 08:02 Sodium Chloride Flush 0.9% 10 Ml Syringe IVP 10 ml 0100,0900,1700 DARCIE Administration Sodium Chloride 10 ml 12/19/23 17:32 12/27/23 08:53 Sodium Chloride Flush 0.9% 10 Ml Syringe IVP 10 ml PRN PRN Administration NEEDED PER PROVIDER ORDERS Albuterol Sulfate [Proair Hfa Inhaler] 2 puffs INH Q4H PRN 03/30/18 Fluticasone [Flonase] 1 spray MONICA BID 05/07/21 Gabapentin [Neurontin] 900 mg PO TID 05/07/21 Furosemide [Lasix] 20 mg PO BID 05/25/21 Montelukast [Singulair] 10 mg PO QPM 05/25/21 Methadone [Methadone Hcl] 10 mg PO QDAC 12/19/23 Theophylline Anhydrous [Theophylline ER] 300 mg PO BID 12/19/23 Azithromycin 500 mg PO UD 12/20/23 Beclomethasone Dipropionate [Qvar Redihaler (80 mcg)] 1 puffs INH BID 12/20/23 Budesonide/Formoterol Fumarate [Symbicort 160-4.5 Mcg Inhaler] 2 puffs INH BID 12/20/23 Ferrous Sulfate [Feosol] 325 mg PO DAILY 12/20/23 Fexofenadine HCl 180 mg PO DAILY 12/20/23 Ipratropium [place] 2 spray MONICA TID 12/20/23 Ipratropium/Albuterol [Combivent Respimat] 1 puffs INH QID 12/20/23 Ipratropium/Albuterol [Duoneb] 3 ml PO Q4H PRN 12/20/23 Methadone [Methadone Hcl] 5 mg PO QPM 12/20/23 Multivitamin with Minerals [Multivitamins with Minerals] 1 tab PO DAILY 12/20/23 Nystatin [Mycostatin] 5 ml PO QID 12/20/23 Pantoprazole [Protonix] 40 mg PO BID 12/20/23 Sertraline [Zoloft] 25 mg PO DAILY 12/20/23 Sulfamethox/Trimeth 800/160 [Bactrim Ds] 1 tab PO UD 12/20/23 Umeclidinium [place] [Incruse Ellipta] 1 inh INH DAILY 12/20/23 guaiFENesin [Chest Congestion Relief] 400 mg PO Q6H PRN 12/20/23 Objective - Vital Signs/Intake & Output Reviewed Vital Signs: Yes Vital Signs: Vital Signs Temp Pulse Pulse Resp BP BP Pulse Ox 12/27/23 10:50 87 26 H 12/27/23 10:48 88 12/27/23 10:00 87 24 146/86 H 100 12/27/23 09:00 103 H 26 H 137/81 H 100 12/27/23 08:55 146/88 H 12/27/23 08:00 37.4 C 106 H 26 H 146/88 H 12/27/23 07:50 37.4 C Intake & Output: Intake & Output 12/24/23 12/25/23 12/26/23 12/27/23 23:59 23:59 23:59 23:59 Intake Total 6574.821 6725.499 2816.468 1785 Output Total 3355 5708 7210 2080 Balance 3219.821 1017.499 -4393.532 -295 - Objective General Appearance: positive: No acute distress Eyes Bilateral: positive: Normal inspection, PERRL, No scleral icterus Neck: positive: Other (central line present R neck) Respiratory: positive: Other (Coarse throughout with rhonchi in LLL, improved since yesterday, no wheezing) Cardiovascular: positive: No murmur, Tachycardia Peripheral Pulses: 1+ Dorsalis pedis (L) (foot cool to touch but pulse intact), 2+ Radial (R), 2+ Radial (L) Abdomen: positive: Non-tender, No organomegaly, Nml bowel sounds, No distention Skin: positive: No rash, Other (bilateral hand edema, multiple areas of ecchymosis on BUE, L foot cool to touch but intact DP pulse, R foot with dressing intact (changed 12/26)) Neurologic/Psychiatric: positive: Other (Intubated, grimaces to fingernail painful stimulus and has slight movement in arms, gag noted to be intact during oral care, not following commands or arousing to voice) - Lab Results Fish Bones: 12/21/23 04:27 12/27/23 04:23 Other Labs: Lab Results x24hrs 12/27/23 12/27/23 12/27/23 Range/Units 05:46 04:23 04:23 VBG pH 7.435 H (7.31-7.41) VBG pCO2 (41-51) mmHg VBG pO2 (25-47) mmHg VBG HCO3 (23-28) mmol/L VBG Total CO2 (24-29) mmol/L VBG O2 Saturation (60-80) % VBG Base Excess (-2 - +2) mmol/L Ionized Calcium 1.18 (1.15-1.33) mmol/L Sodium (135-145) mmol/L Potassium (3.5-4.5) mmol/L Chloride (101-111) mmol/L Carbon Dioxide (21-32) mmol/L Anion Gap (6-13) BUN (6-20) mg/dL Creatinine (0.6-1.3) mg/dL Estimated GFR (MDRD) (>89) Glucose (74-104) mg/dL POC Whole Bld Glucose 255 H (70 - 100) mg/dL Calcium (8.5-10.3) mg/dL Phosphorus (2.5-5.0) mg/dL Magnesium (1.7-2.3) mg/dL Total Bilirubin (0.2-1.0) mg/dL AST (10-42) IU/L ALT (10-60) IU/L Alkaline Phosphatase (42-121) IU/L Total Protein (6.4-8.9) g/dL Albumin (3.2-5.5) g/dL Globulin (2.1-4.2) g/dL Albumin/Globulin Ratio (1.0-2.2) Prealbumin (17-34) mg/dL Last Dose Date 12/26/23 Last Dose Time 08:44 Random Vancomycin 11.9 ug/mL 12/27/23 12/26/23 12/26/23 Range/Units 04:23 23:29 18:02 VBG pH (7.31-7.41) VBG pCO2 (41-51) mmHg VBG pO2 (25-47) mmHg VBG HCO3 (23-28) mmol/L VBG Total CO2 (24-29) mmol/L VBG O2 Saturation (60-80) % VBG Base Excess (-2 - +2) mmol/L Ionized Calcium (1.15-1.33) mmol/L Sodium 138 (135-145) mmol/L Potassium 4.9 H (3.5-4.5) mmol/L Chloride 102 (101-111) mmol/L Carbon Dioxide 32 (21-32) mmol/L Anion Gap 4.0 L (6-13) BUN 48 H (6-20) mg/dL Creatinine 0.6 (0.6-1.3) mg/dL Estimated GFR (MDRD) 137 (>89) Glucose 254 H (74-104) mg/dL POC Whole Bld Glucose 227 H 301 H (70 - 100) mg/dL Calcium 9.1 (8.5-10.3) mg/dL Phosphorus 2.9 (2.5-5.0) mg/dL Magnesium 2.2 (1.7-2.3) mg/dL Total Bilirubin 0.3 (0.2-1.0) mg/dL AST 10 (10-42) IU/L ALT 24 (10-60) IU/L Alkaline Phosphatase 58 (42-121) IU/L Total Protein 5.5 L (6.4-8.9) g/dL Albumin 2.9 L (3.2-5.5) g/dL Globulin 2.6 (2.1-4.2) g/dL Albumin/Globulin Ratio 1.1 (1.0-2.2) Prealbumin 34 (17-34) mg/dL Last Dose Date Last Dose Time Random Vancomycin ug/mL 12/26/23 12/26/23 Range/Units 14:25 12:01 VBG pH 7.474 H (7.31-7.41) VBG pCO2 41.8 (41-51) mmHg VBG pO2 133.9 H (25-47) mmHg VBG HCO3 30.0 H (23-28) mmol/L VBG Total CO2 31.3 H (24-29) mmol/L VBG O2 Saturation 98.5 H (60-80) % VBG Base Excess 5.9 H (-2 - +2) mmol/L Ionized Calcium (1.15-1.33) mmol/L Sodium (135-145) mmol/L Potassium (3.5-4.5) mmol/L Chloride (101-111) mmol/L Carbon Dioxide (21-32) mmol/L Anion Gap (6-13) BUN (6-20) mg/dL Creatinine (0.6-1.3) mg/dL Estimated GFR (MDRD) (>89) Glucose (74-104) mg/dL POC Whole Bld Glucose 239 H (70 - 100) mg/dL Calcium (8.5-10.3) mg/dL Phosphorus (2.5-5.0) mg/dL Magnesium (1.7-2.3) mg/dL Total Bilirubin (0.2-1.0) mg/dL AST (10-42) IU/L ALT (10-60) IU/L Alkaline Phosphatase (42-121) IU/L Total Protein (6.4-8.9) g/dL Albumin (3.2-5.5) g/dL Globulin (2.1-4.2) g/dL Albumin/Globulin Ratio (1.0-2.2) Prealbumin (17-34) mg/dL Last Dose Date Last Dose Time Random Vancomycin ug/mL - Other Results/Comments Other Results/Comments: Upon re-assessment at 1400, pt is back on VC but has RSBI<105, is calm, and does not appear agitated on the vent. Lungs are now coarse throughout but still a bit improved over yesterday. Upon yelling his name and attempting to awaken him he slightly raised his eyebrows, no other response. Assessment/Plan - Problem List (1) Acute respiratory failure with hypoxia and hypercapnia Impression: Prior notes state h/o 2L O2 at home at baseline. Recent treatment for hospital- acquired pneumonia and influenza A in early November. Had hypercapnia on admit CO2 70, trial Bipap, then intubated. Vent: (currently on spontaneous mode) VT 420, Rate 16, PEEP 5, FiO2 35%. Suspect multifactorial from fluid overload due to HFmrEF and R-sided HF, possible pneumonia in setting of underlying asthma, O SA. Was intubated ~2y ago for Covid and required trach and prolonged weaning. Precedex has been off since ~1645 12/26. Plan: Wean vent as able, RSBI is <105, consider extubation when able to follow commands Continue daily awakening and SBT, restart Precedex if needed VBG this AM showed pH 7.34 VAP prevention: routine oral care, HOB>30 degrees PUD prophylaxis: Pepcid (2) On mechanically assisted ventilation Impression: As above. Most recent CXR shows ETT in adequate position. Patient remains critically ill and has a life-threatening condition requiring mechanical ventilation and critical care services. (3) Community acquired pneumonia Impression: CXR with bilateral infiltrates with concern for pneumonia. Viral respiratory panel negative. Had recent treatment for influenza A and hospital acquired pneumonia, so a recurrent bacterial pneumonia would be unlikely - infiltrates on CXR could be due to fluid overload. Plan: Antibiotics for his foot will also cover pneumonia if present Continue steroids but decrease to daily dosing VAP prevention bundle Qualifiers: Lung location: unspecified part of lung (4) Severe persistent asthma Impression: Likely exacerbated by pneumonia. Is on theophylline at home (on hold). Discharge summary from [facility] notes he is on 45 mg prednisone daily although this is not on his home list here. Plan: Continue Pulmicort nebs, Duonebs. Decrease steroids to home dosing. SHAWNA Martell while critically ill. Qualifiers: Asthma complication type: with acute exacerbation Qualified Code(s): J45.51 - Severe persistent asthma with (acute) exacerbation (5) Heart failure with mid-range ejection fraction (HFmEF) Impression: Echo 12/19/23 with LVEF 45-50%, reduced from echo in 2020 which showed EF 65%. On Lasix at home. UOP ~7L yesterday and was alkalotic, so diuresis on hold for today. Plan: Monitor fluid status Continue ACEi and beta ya (6) Dysfunction of right cardiac ventricle Impression: Echo 12/19/23 showed dilated RV and decreased RV systolic function with RV fractional area exchange of 30% Plan: May need to restart diuresis if hypervolemic (7) Altered mental status Impression: Arrived from [facility] obtunded. Intubated due to CO2 narcosis. Today is on spontaneous mode on ventilator, Precedex has been off >12h, and pt is not waking up or responding to commands. Plan: hold sedating medications Suspect due to residual sedative medication effect but if no improvement consider head CT this afternoon Qualifiers: Coma depth: Penelope coma 3-8 Coma timing: in the field (EMT or ambulance) Qualified Code(s): R40.2431 - Penelope coma scale score 3-8, in the field [EMT or ambulance] (8) DM type 2 (diabetes mellitus, type 2) Impression: Not on medications at home. Suspect glucose has been higher more recently due to steroids for his respiratory issues. A1c this admit was 6.6. Plan: continue insulin protocol and adjust dosing as needed Qualifiers: Diabetes mellitus intermodal dispatcher insulin use: without care home use Diabetes mellitus complication status: with neurologic complications Diabetes mellitus complication detail: with polyneuropathy Qualified Code(s): E11.42 - Type 2 diabetes mellitus with diabetic polyneuropathy (9) Hypertension Impression: BP has been labile. Not on anti-hypertensives at home. Suspect anxiety and pain contributing to elevated BP. Plan: Currently on metoprolol, lisinopril, and nitro paste. Monitor BP. Qualifiers: Hypertension type: unspecified Qualified Code(s): I10 - Essential (primary) hypertension (10) Osteomyelitis Impression: Ulceration R foot. Has been present since at least 06/2023. Goes to [facility] wound cl in. Note 12/19/[address] Brown: debridement of all heel ulcers and sent bone sample for culture (done at [facility]). Admitted to [facility] 11/19/23 to 12/06/23 for foot cellulitis, osteo was considered possible but now seems unlikely. Plan: ED spoke to ID Dr. Kearney who recommended below regimen. Continue cefepime, vancomycin and doxycycline. Follow up on bone sample culture results Surgical consult for wound Qualifiers: Osteomyelitis type: other chronic Osteomyelitis location: foot Laterality: right Qualified Code(s): M86.671 - Other chronic osteomyelitis, right ankle and foot (11) EN (obstructive sleep apnea) Impression: On cpap at home. Now intubated. Plan: resume cpap when able (12) Chronic back pain Impression: Uses cannabis edibles, gabapentin, methadone at home. Plan: continue home gabapentin dosing for now, consider decreasing if remains poorly responsive Decrease dose methadone for now until he awakens and follows commands Qualifiers: Back pain location: low back pain Back pain laterality: left Sciatica presence: without sciatica Qualified Code(s): M54.50 - Low back pain, unspecified; G89.29 - Other chronic pain (13) Type 2 ME (myocardial infarction) Impression: Troponins elevated on admission, EKG with no acute ischemic changes. Suspect elevated troponins due to demand from respiratory failure. Allergy to aspirin. Plan: Continue Plavix.
[2023-12-27] MEDS: GABAPENTIN 300 MG CAPSULE PO SCH (21:53)
--- NOTE | 2023-12-28 01:07 | PROVIDER PROGRESS NOTE ---
Environmental Compliance Specialist Note - Environmental Compliance Specialist Note Environmental Compliance Specialist Note: RN paged "Manjit Montaño 58/M admitted for Acute resp failure due to pneumonia, asthma.. Currently on mech vent. Reporting new onset small amount of bloody (dark red) stool. currently on tube feeding. I wonder if you want to order CBC and fecal occult test? Hw about the tube feeding, shall I pause it? Thanks! BTW, pt is on plavix and enoxaparin" 58M p/w acute hypoxemic resp failure 2/2 PNA. intubated on vent. A: hematochezia. diverticular bleed vs hemorrhoids vs fissure. P: FIT. cbc. stool culture. monitor for additional bleed. already on abx Halle Hart
[2023-12-28 04:17] LABS: HCT - HEMATOCRIT 37.8 % (42.0-52.0); HGB - HEMOGLOBIN 11.5 g/dL (14.0-18.0); MEAN CORPUSCULAR HEMOGLOBIN 27.8 pg (27.0-31.0); MEAN CORPUSCULAR HGB CONC 30.4 g/dL (32.0-36.0); MEAN CORPUSCULAR VOLUME 91.3 fL (80.0-94.0); MEAN PLATELET VOLUME 9.5 fL (7.4-11.4); RED BLOOD COUNT 4.14 10^6/uL (4.70-6.10); RED CELL DISTRIBUTION WIDTH 15.6 % (12.0-15.0); WHITE BLOOD COUNT 12.1 x10^3/uL (4.8-10.8)
[2023-12-28 04:19] LABS: CALCIUM, IONIZED 1.17 mmol/L (1.15-1.33); VBG PH 7.438 (7.31-7.41)
[2023-12-28 04:35] LABS: MAGNESIUM 2.1 mg/dL (1.7-2.3); PHOSPHORUS 2.5 mg/dL (2.5-5.0); POTASSIUM 4.6 mmol/L (3.5-4.5)
[2023-12-28 07:40] LABS: FECAL OCCULT BLOOD (FIT) POSITIVE (NEGATIVE)
[2023-12-28 09:21] LABS: HCT - HEMATOCRIT 38.3 % (42.0-52.0); HGB - HEMOGLOBIN 11.7 g/dL (14.0-18.0); MEAN CORPUSCULAR HEMOGLOBIN 27.8 pg (27.0-31.0); MEAN CORPUSCULAR HGB CONC 30.5 g/dL (32.0-36.0); MEAN PLATELET VOLUME 9.7 fL (7.4-11.4); RED BLOOD COUNT 4.21 10^6/uL (4.70-6.10); RED CELL DISTRIBUTION WIDTH 15.9 % (12.0-15.0); WHITE BLOOD COUNT 14.2 x10^3/uL (4.8-10.8)
[2023-12-28 09:39] LABS: ALBUMIN 2.9 g/dL (3.2-5.5); ALBUMIN/GLOBULIN RATIO 1.2 (1.0-2.2); BILIRUBIN,TOTAL 0.4 mg/dL (0.2-1.0); CALCIUM 9.1 mg/dL (8.5-10.3); CREATININE 0.6 mg/dL (0.6-1.3); POTASSIUM 4.7 mmol/L (3.5-4.5); TOTAL PROTEIN 5.4 g/dL (6.4-8.9)
[2023-12-28] MEDS: HEPARIN 5,000 UNIT/ML VIAL SUBQ SCH (10:08)
--- NOTE | 2023-12-28 11:18 | PROVIDER PROGRESS NOTE ---
Subjective - Prog Note Date Prog Note Date: 12/28/23 Prog Note Time: 11:14 - Subjective Subjective: Unable to obtain due to AMS. Overnight required one dose prn Ativan, had a small amount of dark red stool with positive occult blood. Current Medications - Current Medications Current Medications: Active Medications Generic Name Dose Route Start Last Admin Trade Name Freq PRN Reason Stop Dose Admin Albuterol/Ipratropium 3 ml 12/19/23 19:35 12/24/23 03:09 Ipratropium/Albuterol 3 Ml Neb INH 3 ml Q4HR PRN Administration Wheezing Albuterol/Ipratropium 3 ml 12/23/23 12:00 12/28/23 11:17 Ipratropium/Albuterol 3 Ml Neb INH 3 ml RTQ4H DARCIE Administration Budesonide 0.5 mg 12/19/23 19:36 12/28/23 06:15 Budesonide 0.5 Mg/2 Ml Neb INH 0.5 mg RTBID DARCIE Administration Chlorhexidine Gluconate 15 ml 12/22/23 10:22 12/28/23 09:48 Chlorhexidine Gluconate 15 Ml Udc PO 15 ml BID DARCIE Administration Clopidogrel Bisulfate 75 mg 12/20/23 18:20 12/28/23 10:07 Clopidogrel 75 Mg Tablet PO 75 mg DAILY DARCIE Administration Famotidine 20 mg 12/19/23 21:00 12/28/23 09:48 Famotidine 20 Mg/2 Ml Vial IVP 20 mg BID DARCIE Administration Fentanyl 25 mcg 12/25/23 09:19 12/28/23 03:01 Fentanyl 100 Mcg/2 Ml Vial IVP 25 mcg Q4HR PRN Administration Severe Pain (Level 7-10) Fluticasone Propionate 2 sprays 12/19/23 21:00 12/27/23 20:28 Fluticasone Nasal Mcgregor MONICA 2 sprays QPM DARCIE Administration Gabapentin 300 mg 12/27/23 22:00 12/28/23 05:27 Gabapentin 300 Mg Capsule PO 300 mg TID DARCIE Administration Heparin Sodium (Porcine) 5,000 unit 12/28/23 09:00 12/28/23 10:08 Heparin 5,000 Unit/Ml Vial SUBQ 5,000 unit BID DARCIE Administration Cefepime HCl 1 gm/ Sodium 100 mls @ 200 mls/hr 12/19/23 22:00 12/28/23 05:25 Chloride IV 200 mls/hr Q8H DARCIE Administration Doxycycline Hyclate 100 mg/ 100 mls @ 100 mls/hr 12/19/23 21:00 12/28/23 09:52 Sodium Chloride IV 100 mls/hr Q12H DARCIE Administration Dexmedetomidine HCl 400 mcg/ 100 mls @ 22.825 mls/hr 12/26/23 17:30 Sodium Chloride IV .Q4H23M PRN Agitation Protocol Vancomycin HCl 1 gm/ Sodium 250 mls @ 167 mls/hr 12/27/23 09:00 12/28/23 09:50 Chloride IV 167 mls/hr Q12H DARCIE Administration Insulin Glargine-yfgn 10 unit 12/24/23 09:32 12/28/23 09:55 Insulin Glargine-Yfgn 300 Unit/3 Ml Pen SUBQ 10 unit BID DARCIE Administration Insulin Human Regular 3 - 11 unit 12/26/23 06:00 12/28/23 06:32 Insulin Regular Human 300 Unit/3 Ml Vial SUBQ 3 unit Q6HR DARCIE Administration Protocol Lisinopril 5 mg 12/25/23 14:09 12/28/23 10:05 Lisinopril 5 Mg Tablet NG 5 mg DAILY DARCIE Administration Lorazepam 1 mg 12/20/23 09:30 12/28/23 03:36 Lorazepam 2 Mg/Ml Vial IVP 1 mg Q2H PRN Administration Anxiety Methadone HCl 5 mg 12/27/23 09:00 12/28/23 09:49 Methadone 5 Mg Tablet PO 5 mg DAILY DARCIE Administration Methylprednisolone 40 mg 12/27/23 09:00 12/28/23 09:48 Methylprednisolone Succinate 40 Mg/Ml Vial IVP 40 mg DAILY DARCIE Administration Metoprolol Tartrate 25 mg 12/24/23 09:00 12/28/23 10:05 Metoprolol Tartrate 25 Mg Tablet PO 25 mg BID DARCIE Administration Nitroglycerin 0.5 inch 12/24/23 13:00 12/28/23 06:36 Nitroglycerin 2% Paste TOP 0.5 inch Q6H DARCIE Administration Theophylline 1 each 12/19/23 21:00 Anhydrous [ PO Theophylline Er] 300 BID DARCIE Mg Tab.Er.12h Phenol/Menthol 2 sprays 12/19/23 20:31 12/19/23 22:29 Phenol Throat Mcgregor 177 Ml MM 2 sprays Q2HR PRN Administration Throat Pain Sodium Chloride 10 ml 12/20/23 01:00 12/28/23 09:51 Sodium Chloride Flush 0.9% 10 Ml Syringe IVP 10 ml 0100,0900,1700 DARCIE Administration Sodium Chloride 10 ml 12/19/23 17:32 12/27/23 08:53 Sodium Chloride Flush 0.9% 10 Ml Syringe IVP 10 ml PRN PRN Administration NEEDED PER PROVIDER ORDERS Albuterol Sulfate [Proair Hfa Inhaler] 2 puffs INH Q4H PRN 03/30/18 Fluticasone [Flonase] 1 spray MONICA BID 05/07/21 Gabapentin [Neurontin] 900 mg PO TID 05/07/21 Furosemide [Lasix] 20 mg PO BID 05/25/21 Montelukast [Singulair] 10 mg PO QPM 05/25/21 Methadone [Methadone Hcl] 10 mg PO QDAC 12/19/23 Theophylline Anhydrous [Theophylline ER] 300 mg PO BID 12/19/23 Azithromycin 500 mg PO UD 12/20/23 Beclomethasone Dipropionate [Qvar Redihaler (80 mcg)] 1 puffs INH BID 12/20/23 Budesonide/Formoterol Fumarate [Symbicort 160-4.5 Mcg Inhaler] 2 puffs INH BID 12/20/23 Ferrous Sulfate [Feosol] 325 mg PO DAILY 12/20/23 Fexofenadine HCl 180 mg PO DAILY 12/20/23 Ipratropium [place] 2 spray MONICA TID 12/20/23 Ipratropium/Albuterol [Combivent Respimat] 1 puffs INH QID 12/20/23 Ipratropium/Albuterol [Duoneb] 3 ml PO Q4H PRN 12/20/23 Methadone [Methadone Hcl] 5 mg PO QPM 12/20/23 Multivitamin with Minerals [Multivitamins with Minerals] 1 tab PO DAILY 12/20/23 Nystatin [Mycostatin] 5 ml PO QID 12/20/23 Pantoprazole [Protonix] 40 mg PO BID 12/20/23 Sertraline [Zoloft] 25 mg PO DAILY 12/20/23 Sulfamethox/Trimeth 800/160 [Bactrim Ds] 1 tab PO UD 12/20/23 Umeclidinium [place] [Incruse Ellipta] 1 inh INH DAILY 12/20/23 guaiFENesin [Chest Congestion Relief] 400 mg PO Q6H PRN 12/20/23 Objective - Vital Signs/Intake & Output Reviewed Vital Signs: Yes Vital Signs: Vital Signs Temp Pulse Pulse Resp BP BP Pulse Ox 12/28/23 11:00 93 24 107/74 100 12/28/23 10:05 131/93 H 12/28/23 10:00 36.8 C 113 H 28 H 131/93 H 100 12/28/23 09:31 121 H 12/28/23 09:00 116 H 26 H 98/67 100 12/28/23 08:00 108 H 26 H 127/76 100 Intake & Output: Intake & Output 12/25/23 12/26/23 12/27/23 12/28/23 23:59 23:59 23:59 23:59 Intake Total 6725.499 2816.468 3220 1130 Output Total 5708 7210 4100 2245 Balance 1017.499 -4393.532 -880 -1115 - Objective General Appearance: positive: No acute distress Eyes Bilateral: positive: Normal inspection, Other (Pupils sluggish but equal and reactive to light) Respiratory: positive: No respiratory distress, Other (Coarse throughout, more diminished on the left) Cardiovascular: positive: Regular rate & rhythm, No murmur Peripheral Pulses: 1+ Dorsalis pedis (L), 2+ Radial (R), 2+ Radial (L) Abdomen: positive: Non-tender, No organomegaly, Nml bowel sounds, No distention, Other (soft) Skin: positive: No rash, Warm, Other (Mulitple areas of ecchymoses, dressing intact to R foot) Extremities: positive: Other (no pedal edema on left foot, right foot with dressing in place) Neurologic/Psychiatric: positive: Other (Upon calling his name loudly, he raises his eyebrows and flutters his eyelids, but does not open his eyes. Does not resist eyelid opening, with nailbed pressure withdraws to pain in BUE and grimaces. With coughing he lifts his head slightly off the bed. GCS 6.) - Lab Results Fish Bones: 12/28/23 09:15 12/28/23 09:15 Other Labs: Lab Results x24hrs 12/28/23 12/28/23 12/28/23 Range/Units 09:15 09:15 06:00 WBC 14.2 H (4.8-10.8) x10^3/uL RBC 4.21 L (4.70-6.10) 10^6/uL Hgb 11.7 L (14.0-18.0) g/dL Hct 38.3 L (42.0-52.0) % MCV 91.0 (80.0-94.0) fL MCH 27.8 (27.0-31.0) pg MCHC 30.5 L (32.0-36.0) g/dL RDW 15.9 H (12.0-15.0) % Plt Count 297 (130-450) 10^3/uL MPV 9.7 (7.4-11.4) fL VBG pH (7.31-7.41) Ionized Calcium (1.15-1.33) mmol/L Sodium 136 (135-145) mmol/L Potassium 4.7 H (3.5-4.5) mmol/L Chloride 101 (101-111) mmol/L Carbon Dioxide 32 (21-32) mmol/L Anion Gap 3.0 L (6-13) BUN 43 H (6-20) mg/dL Creatinine 0.6 (0.6-1.3) mg/dL Estimated GFR (MDRD) 137 (>89) Glucose 133 H (74-104) mg/dL POC Whole Bld Glucose (70 - 100) mg/dL Calcium 9.1 (8.5-10.3) mg/dL Phosphorus (2.5-5.0) mg/dL Magnesium (1.7-2.3) mg/dL Total Bilirubin 0.4 (0.2-1.0) mg/dL AST 15 (10-42) IU/L ALT 32 (10-60) IU/L Alkaline Phosphatase 53 (42-121) IU/L Total Protein 5.4 L (6.4-8.9) g/dL Albumin 2.9 L (3.2-5.5) g/dL Globulin 2.5 (2.1-4.2) g/dL Albumin/Globulin Ratio 1.2 (1.0-2.2) Stl Occult Blood (IFOB) POSITIVE A (NEGATIVE) 12/28/23 12/28/23 12/28/23 Range/Units 05:57 04:13 04:13 WBC (4.8-10.8) x10^3/uL RBC (4.70-6.10) 10^6/uL Hgb (14.0-18.0) g/dL Hct (42.0-52.0) % MCV (80.0-94.0) fL MCH (27.0-31.0) pg MCHC (32.0-36.0) g/dL RDW (12.0-15.0) % Plt Count (130-450) 10^3/uL MPV (7.4-11.4) fL VBG pH 7.438 H (7.31-7.41) Ionized Calcium 1.17 (1.15-1.33) mmol/L Sodium (135-145) mmol/L Potassium 4.6 H (3.5-4.5) mmol/L Chloride (101-111) mmol/L Carbon Dioxide (21-32) mmol/L Anion Gap (6-13) BUN (6-20) mg/dL Creatinine (0.6-1.3) mg/dL Estimated GFR (MDRD) (>89) Glucose (74-104) mg/dL POC Whole Bld Glucose 146 H (70 - 100) mg/dL Calcium (8.5-10.3) mg/dL Phosphorus 2.5 (2.5-5.0) mg/dL Magnesium 2.1 (1.7-2.3) mg/dL Total Bilirubin (0.2-1.0) mg/dL AST (10-42) IU/L ALT (10-60) IU/L Alkaline Phosphatase (42-121) IU/L Total Protein (6.4-8.9) g/dL Albumin (3.2-5.5) g/dL Globulin (2.1-4.2) g/dL Albumin/Globulin Ratio (1.0-2.2) Stl Occult Blood (IFOB) (NEGATIVE) 12/28/23 12/28/23 12/27/23 Range/Units 04:13 00:08 17:53 WBC 12.1 H (4.8-10.8) x10^3/uL RBC 4.14 L (4.70-6.10) 10^6/uL Hgb 11.5 L (14.0-18.0) g/dL Hct 37.8 L (42.0-52.0) % MCV 91.3 (80.0-94.0) fL MCH 27.8 (27.0-31.0) pg MCHC 30.4 L (32.0-36.0) g/dL RDW 15.6 H (12.0-15.0) % Plt Count 289 (130-450) 10^3/uL MPV 9.5 (7.4-11.4) fL VBG pH (7.31-7.41) Ionized Calcium (1.15-1.33) mmol/L Sodium (135-145) mmol/L Potassium (3.5-4.5) mmol/L Chloride (101-111) mmol/L Carbon Dioxide (21-32) mmol/L Anion Gap (6-13) BUN (6-20) mg/dL Creatinine (0.6-1.3) mg/dL Estimated GFR (MDRD) (>89) Glucose (74-104) mg/dL POC Whole Bld Glucose 149 H 213 H (70 - 100) mg/dL Calcium (8.5-10.3) mg/dL Phosphorus (2.5-5.0) mg/dL Magnesium (1.7-2.3) mg/dL Total Bilirubin (0.2-1.0) mg/dL AST (10-42) IU/L ALT (10-60) IU/L Alkaline Phosphatase (42-121) IU/L Total Protein (6.4-8.9) g/dL Albumin (3.2-5.5) g/dL Globulin (2.1-4.2) g/dL Albumin/Globulin Ratio (1.0-2.2) Stl Occult Blood (IFOB) (NEGATIVE) 12/27/23 Range/Units 11:50 WBC (4.8-10.8) x10^3/uL RBC (4.70-6.10) 10^6/uL Hgb (14.0-18.0) g/dL Hct (42.0-52.0) % MCV (80.0-94.0) fL MCH (27.0-31.0) pg MCHC (32.0-36.0) g/dL RDW (12.0-15.0) % Plt Count (130-450) 10^3/uL MPV (7.4-11.4) fL VBG pH (7.31-7.41) Ionized Calcium (1.15-1.33) mmol/L Sodium (135-145) mmol/L Potassium (3.5-4.5) mmol/L Chloride (101-111) mmol/L Carbon Dioxide (21-32) mmol/L Anion Gap (6-13) BUN (6-20) mg/dL Creatinine (0.6-1.3) mg/dL Estimated GFR (MDRD) (>89) Glucose (74-104) mg/dL POC Whole Bld Glucose 265 H (70 - 100) mg/dL Calcium (8.5-10.3) mg/dL Phosphorus (2.5-5.0) mg/dL Magnesium (1.7-2.3) mg/dL Total Bilirubin (0.2-1.0) mg/dL AST (10-42) IU/L ALT (10-60) IU/L Alkaline Phosphatase (42-121) IU/L Total Protein (6.4-8.9) g/dL Albumin (3.2-5.5) g/dL Globulin (2.1-4.2) g/dL Albumin/Globulin Ratio (1.0-2.2) Stl Occult Blood (IFOB) (NEGATIVE) - Diagnostic Imaging Diagnostic Imaging Results: positive: See rad report Assessment/Plan - Problem List (1) Acute respiratory failure with hypoxia and hypercapnia Impression: Prior notes state h/o 2L O2 at home at baseline. Recent treatment for hospital- acquired pneumonia and influenza A in early November. Hypercapnia on admit CO2 70, trial Bipap, then intubated. Vent settings: AC rate 16, VT 420, PEEP 5, FiO2 35%. Suspect multifactorial from fluid overload due to HFmrEF and R-sided HF, possible pneumonia in setting of underlying asthma, EN. Was intubated ~2y ago for Covid and required trach and prolonged weaning. Precedex has been off since ~1645 12/26. Plan: Wean vent as able, RSBI is <105, consider extubation when able to follow commands Continue daily SBT VBG this AM showed pH 7.43 VAP prevention: routine oral care, HOB>30 degrees PUD prophylaxis: Pepcid (2) On mechanically assisted ventilation Impression: As above. Most recent CXR shows ETT in adequate position. Patient remains critically ill and has a life-threatening condition requiring mechanical ventilation and critical care services. His discharge has been delayed due to need for continued mechanical ventilation due to respiratory failure and altered mental status (3) Community acquired pneumonia Impression: CXR on admit with bilateral infiltrates with concern for pneumonia. Viral respiratory panel negative. Recent treatment for influenza A and hospital acquired pneumonia, so recurrent bacterial pneumonia would be unlikely - infiltrates on CXR could be due to fluid overload. Plan: Antibiotics for his foot will also cover pneumonia if present VAP prevention bundle Qualifiers: Lung location: unspecified part of lung (4) Severe persistent asthma Impression: Likely exacerbated by pneumonia. Is on theophylline at home (on hold). Discharge summary from [facility] notes he is on 45 mg prednisone daily although this is not on his home list here. Plan: Continue Pulmicort nebs, Duonebs, home dose steroids. Hold home Singulair while critically ill. Qualifiers: Asthma complication type: with acute exacerbation Qualified Code(s): J45.51 - Severe persistent asthma with (acute) exacerbation (5) Heart failure with mid-range ejection fraction (HFmEF) Impression: Echo 12/19/23 with LVEF 45-50%, reduced from echo in 2020 which showed EF 65%. On Lasix at home. Currently diuresis on hold. Plan: Monitor fluid status closely in setting of RV dysfunction Continue ACEi and beta ya (6) Dysfunction of right cardiac ventricle Impression: Echo 12/19/23 showed dilated RV and decreased RV systolic function with RV fractional area exchange of 30% Plan: Monitor volume status closely, diuresis as indicated (7) Altered mental status Impression: Arrived from SNF obtunded. Intubated due to CO2 narcosis. Precedex has been off >36h, mental status slowly improving a bit each day but still not responding to commands. Plan: hold sedating medications Suspect due to residual sedative medication effect but if no improvement consider head CT Qualifiers: Coma depth: Adarsh coma 3-8 Coma timing: in the field (EMT or ambulance) Qualified Code(s): R40.2431 - Adarsh coma scale score 3-8, in the field [EMT or ambulance] (8) DM type 2 (diabetes mellitus, type 2) Impression: Not on medications at home. Suspect glucose has been higher more recently due to steroids for his respiratory issues. A1c this admit was 6.6. Plan: continue insulin protocol and adjust dosing as needed Qualifiers: Diabetes mellitus [facility] insulin use: without emt intermediate use Diabetes mellitus complication status: with neurologic complications Diabetes mellitus complication detail: with polyneuropathy Qualified Code(s): E11.42 - Type 2 diabetes mellitus with diabetic polyneuropathy (9) Hypertension Impression: BP has been labile. Not on anti-hypertensives at home. Suspect anxiety and pain contributing to elevated BP. Plan: Currently on metoprolol, lisinopril, and nitro paste. Monitor BP. Qualifiers: Hypertension type: unspecified Qualified Code(s): I10 - Essential (primary) hypertension (10) Osteomyelitis Impression: Ulceration R foot. Has been present since at least 06/2023. [place] [facility] [place]. Note 12/19/[address] Brown: debridement of all heel ulcers and sent bone sample for culture (done at [facility]). Admitted to [facility] 11/19/23 to 12/06/23 for foot cellulitis, osteo was considered possible but now seems unlikely. Plan: ED spoke to ID Dr. Kearney who recommended below regimen. Continue cefepime, vancomycin and doxycycline. Follow up on bone sample culture results Surgical consult completed for wound Qualifiers: Osteomyelitis type: other chronic Osteomyelitis location: foot Laterality: right Qualified Code(s): M86.671 - Other chronic osteomyelitis, right ankle and foot (11) EN (obstructive sleep apnea) Impression: On cpap at home. Now intubated. Plan: resume cpap when able (12) Chronic back pain Impression: Uses cannabis edibles, gabapentin, methadone at home. Plan: continue home gabapentin dosing for now, consider decreasing if remains poorly responsive Decrease dose methadone for now until he awakens and follows commands Qualifiers: Back pain location: low back pain Back pain laterality: left Sciatica presence: without sciatica Qualified Code(s): M54.50 - Low back pain, unspecified; G89.29 - Other chronic pain (13) Type 2 OK (myocardial infarction) Impression: Troponins elevated on admission, EKG with no acute ischemic changes. Suspect elevated troponins due to demand from respiratory failure, although RV infarct is in the differential and possible due to RV dysfunction. Allergy to aspirin. Plan: Continue Plavix. (14) Hematochezia Impression: Reported episode of blood in stool overnight, no further blood noted. Stool hemoccult positive. No evidence of abdominal pain or rigidity, stable VS, no evidence of significant GI bleeding. Hgb is improved since prior. Plan: Continue Plavix due possible recent OK Continue SQ heparin for DVT prophylaxis, he is at high risk of DVT Monitor H/H as indicated
--- NOTE | 2023-12-28 12:56 | XRAY Report ---
PROCEDURE: Chest 1V INDICATIONS: Intubated patient with altered of consciousness TECHNIQUE: One view of the chest was acquired. COMPARISON: CXR 12/26/23 FINDINGS: Surgical changes and devices: Cervical fixation plate endotracheal tube, nasogastric tube and right- sided central catheter are unchanged. Lungs and pleura: Bilateral pulmonary opacities are present, unchanged. Mediastinum: Mediastinal contours appear normal. Heart size is unchanged. Bones and chest wall: No suspicious bony lesions. Overlying soft tissues appear unremarkable. IMPRESSION: Stable bilateral pulmonary opacities. Reviewed by: Kisha Pride MD on 12/28/2023 12:55 PM [facility] Approved by: Kisha Pride MD on 12/28/2023 12:55 PM [facility] Station ID: [id number]
--- NOTE | 2023-12-28 16:46 | CT Report ---
PROCEDURE: Head WO INDICATIONS: Intubated patient w/ altered mental status TECHNIQUE: Noncontrast 4.5 mm thick angled axial sections acquired from the foramen magnum to the vertex. For r adiation dose reduction, the following was used: automated exposure control, adjustment of mA and/or kV according to patient size. COMPARISON: None. FINDINGS: Image quality: Patient motion artifact. CSF spaces: Basal cisterns are patent. No extra-axial fluid collections. Ventricles are normal in size and shape. Brain: No midline shift. No intracranial masses or hemorrhage. Rodriguez-white matter interface is norm al. Certain images are significantly degraded by patient motion artifact. There is age-related volume loss and relatively mild to moderate small vessel ischemic change. There is intracranial carotid wade cifications. Skull and face: Calvarium and visualized facial bones are intact, without suspicious lesions. Sinuses: Visualized sinuses and mastoids are clear. IMPRESSION: Somewhat suboptimal study secondary to patient motion artifact. No acute intracranial process noted. Reviewed by: Rex Camp MD on 12/28/2023 4:45 PM PST Approved by: Rex Camp MD on 12/28/2023 4:45 PM PST Station ID: [id number]
[2023-12-28] MEDS: DEXMEDETOMIDINE 400 MCG/100 ML 100 ML IV SCH (18:14)
[2023-12-28] MEDS ORDERED: METOPROLOL 5 MG/5 ML VIAL IVP ONE (18:23)
[2023-12-28] MEDS: METOPROLOL 5 MG/5 ML VIAL IVP STA (18:29)
[2023-12-28 19:27] LABS: CALCIUM 8.8 mg/dL (8.5-10.3); CREATININE 0.6 mg/dL (0.6-1.3); PHOSPHORUS 3.9 mg/dL (2.5-5.0); POTASSIUM 4.7 mmol/L (3.5-4.5)
[2023-12-29 05:39] LABS: BASOPHILS % (AUTO) 0.2 %; EOSINOPHILS % (AUTO) 0.2 %; HCT - HEMATOCRIT 36.8 % (42.0-52.0); LYMPHOCYTES # (AUTO) 0.8 10^3/uL (1.5-3.5); LYMPHOCYTES % (AUTO) 7.5 %; MEAN CORPUSCULAR HEMOGLOBIN 26.9 pg (27.0-31.0); MEAN CORPUSCULAR HGB CONC 29.9 g/dL (32.0-36.0); MEAN PLATELET VOLUME 9.6 fL (7.4-11.4); MONOCYTES % (AUTO) 8.9 %; NEUTROPHILS # (AUTO) 8.9 10^3/uL (1.5-6.6); NEUTROPHILS % (AUTO) 81.1 %; NRBC ABSOLUTE COUNT (AUTO) 0.02 x10^3/uL; NUCLEATED RED BLOOD CELLS AUTO 0.2 /100WBC; PLT - PLATELET COUNT 291 10^3/uL (130-450); RED BLOOD COUNT 4.09 10^6/uL (4.70-6.10); RED CELL DISTRIBUTION WIDTH 15.6 % (12.0-15.0)
[2023-12-29 06:03] LABS: CALCIUM 8.8 mg/dL (8.5-10.3); CREATININE 0.5 mg/dL (0.6-1.3); PHOSPHORUS 3.7 mg/dL (2.5-5.0); POTASSIUM 4.6 mmol/L (3.5-4.5)
[2023-12-29] MEDS ORDERED: NOREPINEPHRINE/0.9 % NS 8 MG/250 ML BAG IV ONE (08:13)
[2023-12-29] MEDS: ALBUMIN 25% 12.5 GM/50 ML VIAL IV STA ×2 (08:18→08:35)
--- NOTE | 2023-12-29 08:58 | CT Report ---
PROCEDURE: Cervical Spine WO INDICATIONS: flacid paralysis of upper extremity TECHNIQUE: Noncontrast 3 mm thick sections acquired from the skull base to the T4 level. Sagittal and coronal r eformats were then constructed. For radiation dose reduction, the following was used: automated exp osure control, adjustment of mA and/or kV according to patient size. COMPARISON: None. FINDINGS: Image quality: Diagnostic. Bones: No acute fractures or dislocations. No acute compression fractures of the vertebral bodies. C raniocervical junction is intact. C1-C2 relationship is preserved. Visualized superior ribs are intac t. Multilevel cervical spondylosis. Findings most pronounced at C7-T1. Prior surgical changes of ante rior cervical discectomy and fusion from C4 through C7. There appears to be osseous fusion across the segments. Moderate multilevel cervical spondylitic changes without evidence for severe central canal stenosis. Soft tissues: Prevertebral soft tissues are normal in thickness. No paravertebral hematomas. No ap ical pneumothoraces. Patient is intubated. IMPRESSION: CT cervical spine without acute fracture or traumatic malalignment. Moderate multilevel cervical spondylosis without evidence for severe spinal canal stenosis. Status post anterior cervical discectomy of C4-C7. Reviewed by: Porter Sheehan MD on 12/29/2023 8:57 AM PST Approved by: Porter Sheehan MD on 12/29/2023 8:57 AM PST Station ID: [id number]
[2023-12-29 09:21] LABS: BASOPHILS % (AUTO) 0.2 %; EOSINOPHILS % (AUTO) 0.4 %; HCT - HEMATOCRIT 32.8 % (42.0-52.0); HGB - HEMOGLOBIN 9.9 g/dL (14.0-18.0); LYMPHOCYTES # (AUTO) 0.9 10^3/uL (1.5-3.5); MEAN CORPUSCULAR HEMOGLOBIN 27.3 pg (27.0-31.0); MEAN CORPUSCULAR HGB CONC 30.2 g/dL (32.0-36.0); MEAN CORPUSCULAR VOLUME 90.6 fL (80.0-94.0); MEAN PLATELET VOLUME 9.9 fL (7.4-11.4); NEUTROPHILS # (AUTO) 8.6 10^3/uL (1.5-6.6); NEUTROPHILS % (AUTO) 80.3 %; NRBC ABSOLUTE COUNT (AUTO) 0.02 x10^3/uL; NUCLEATED RED BLOOD CELLS AUTO 0.2 /100WBC; PLT - PLATELET COUNT 276 10^3/uL (130-450); RED BLOOD COUNT 3.62 10^6/uL (4.70-6.10); RED CELL DISTRIBUTION WIDTH 15.8 % (12.0-15.0); WHITE BLOOD COUNT 10.7 x10^3/uL (4.8-10.8)
[2023-12-29 09:26] LABS: CALCIUM, IONIZED 1.14 mmol/L (1.15-1.33); VBG PH 7.45 (7.31-7.41)
[2023-12-29 09:27] LABS: ABG BASE EXCESS 3.8 mmol/L (-2.0-3.0); ABG HCO3 27.8 mmol/L (22.0-26.0); ABG OXYGEN SATURATION 97 % (94-98); ABG PCO2 40 mmHg (34-45); ABG PH 7.47 (7.35-7.45); ABG PO2 101 mmHg (80-100); ALLEN TEST POSITIVE
[2023-12-29 09:27] LABS: CALCIUM 8.9 mg/dL (8.5-10.3); CREATININE 0.6 mg/dL (0.6-1.3); POTASSIUM 4.4 mmol/L (3.5-4.5)
[2023-12-29 09:28] LABS: ABG MODE OF VENTILATION ASSIST/CONTROL; ABG RESPIRATORY RATE 16 b/min
[2023-12-29] MEDS: METHADONE 5 MG TABLET PO SCH (20:24)
--- NOTE | 2023-12-29 22:31 | PROVIDER PROGRESS NOTE ---
Assessment/Plan - Problem List (1) Acute respiratory failure with hypoxia and hypercapnia Assessment/Plan: Prior notes state h/o 2L O2 at home at baseline. Recent treatment for hospital- acquired pneumonia and influenza A in early November. Hypercapnia on admit CO2 70, trial Bipap, then intubated. Patient is improving from a respiratory status and was able to be extubated this afternoon. He uses positive airway pressure therapy at home and plan is for teaching him to use bilevel positive airway pressure at night and as needed during the day. (2) On mechanically assisted ventilation Impression: Extubated today. Patient appears to be doing well from a respiratory standpoint. (3) Community acquired pneumonia Impression: Resolved. Continue to monitor respiratory status. Qualifiers: Lung location: unspecified part of lung (4) Severe persistent asthma Impression: Continue DuoNeb, budesonide. Qualifiers: Asthma complication type: with acute exacerbation Qualified Code(s): J45.51 - Severe persistent asthma with (acute) exacerbation (5) Heart failure with mid-range ejection fraction (HFmEF) Impression: Echo 12/19/23 with LVEF 45-50%, reduced from echo in 2019 which showed EF 65%. On Lasix at home. Currently diuresis on hold. Plan: Monitor fluid status closely in setting of RV dysfunction Continue Lisinopril 5 mg daily and metoprolol 25 mg twice daily. (6) Dysfunction of right cardiac ventricle Impression: Echo 12/19/23 showed dilated RV and decreased RV systolic function with RV fractional area exchange of 30% Plan: Monitor volume status closely, diuresis as indicated (7) Altered mental status Impression: On December 28, 2023 the patient underwent a CT scan of the head which did not reveal any acute intracranial process. Given the fact that patient appeared to have flaccid paralysis in his upper extremities, he underwent a CT scan of the cervical spine which did not reveal any acute fracture or traumatic malalignment. Patient has had a anterior cervical discectomy of C4-C7. Qualifiers: Coma depth: Adarsh coma 3-8 Coma timing: in the field (EMT or ambulance) Qualified Code(s): R40.2431 - Adarsh coma scale score 3-8, in the field [EMT or ambulance] (8) DM type 2 (diabetes mellitus, type 2) Impression: Continue glargine and sliding scale insulin for serum glucose control. Qualifiers: Diabetes mellitus long line teamster insulin use: without long line teamster use Diabetes me llitus complication status: with neurologic complications Diabetes mellitus complication detail: with polyneuropathy Qualified Code(s): E11.42 - Type 2 diabetes mellitus with diabetic polyneuropathy (9) Hypertension Impression: BP has been labile. Not on anti-hypertensives at home. Suspect anxiety and pain contributing to elevated BP. Plan: Currently on metoprolol, lisinopril, and nitro paste. Monitor BP. Qualifiers: Hypertension type: unspecified Qualified Code(s): I10 - Essential (primary) hypertension (10) Osteomyelitis Impression: Ulceration R foot. Has been present since at least 06/2023. Goes to [facility] [place] wound clinic. Note 12/19/[address] Brown: debridement of all heel ulcers and sent bone sample for culture (done at [facility]). Admitted to [facility] 11/19/23 to 12/06/23 for foot cellulitis, osteo was considered possible but now seems unlikely. Plan: ED spoke to ID Dr. Kearney who recommended below regimen. Continue cefepime, vancomycin and doxycycline. Follow up on bone sample culture results Surgical consult completed for wound Qualifiers: Osteomyelitis type: other chronic Osteomyelitis location: foot Laterality: right Qualified Code(s): M86.671 - Other chronic osteomyelitis, right ankle and foot (11) EN (obstructive sleep apnea) Impression: On cpap at home. I have requested that his family bring in his positive airway pressure device. An order has been written for bilevel positive airway pressure therapy with IPAP/EPAP 10/06. (12) Chronic back pain Impression: Uses cannabis edibles, gabapentin, methadone at home. Plan: continue home gabapentin 300 mg 3 times a day. Decrease dose methadone To 5 mg daily. Qualifiers: Back pain location: low back pain Back pain laterality: left Sciatica presence: without sciatica Qualified Code(s): M54.50 - Low back pain, unspecified; G89.29 - Other chronic pain (13) Type 2 TN (myocardial infarction) Impression: Troponins elevated on admission, EKG with no acute ischemic changes. Suspect elevated troponins due to demand from respiratory failure, although RV infarct is in the differential and possible due to RV dysfunction. Allergy to aspirin. Plan: Continue Plavix. (14) Hematochezia Impression: Reported episode of blood in stool overnight, no further blood noted. Stool hemoccult positive. No evidence of abdominal pain or rigidity, stable VS, no evidence of significant GI bleeding. Hgb is improved since prior. Plan: Continue Plavix due possible recent TN Continue SQ heparin for DVT prophylaxis, he is at high risk of DVT Monitor H/H as indicated - Current Meds Current Meds: Current Medications Generic Name Dose Route Start Last Admin Trade Name Freq PRN Reason Stop Dose Admin Albuterol/Ipratropium 3 ml 12/19/23 19:35 12/24/23 03:09 Ipratropium/Albuterol 3 Ml Neb INH 3 ml Q4HR PRN Administration Wheezing Albuterol/Ipratropium 3 ml 12/23/23 12:00 12/29/23 19:56 Ipratropium/Albuterol 3 Ml Neb INH 3 ml RTQ4H DARCIE Administration Budesonide 0.5 mg 12/19/23 19:36 12/29/23 19:56 Budesonide 0.5 Mg/2 Ml Neb INH 0.5 mg RTBID DARCIE Administration Chlorhexidine Gluconate 15 ml 12/22/23 10:22 12/29/23 20:44 Chlorhexidine Gluconate 15 Ml Udc PO 15 ml BID DARCIE Administration Clopidogrel Bisulfate 75 mg 12/20/23 18:20 12/29/23 09:48 Clopidogrel 75 Mg Tablet PO 75 mg DAILY DARCIE Administration Famotidine 20 mg 12/19/23 21:00 12/29/23 20:44 Famotidine 20 Mg/2 Ml Vial IVP 20 mg BID DARCIE Administration Fentanyl 25 mcg 12/25/23 09:19 12/28/23 03:01 Fentanyl 100 Mcg/2 Ml Vial IVP 25 mcg Q4HR PRN Administration Severe Pain (Level 7-10) Fluticasone Propionate 2 sprays 12/19/23 21:00 12/29/23 20:44 Fluticasone Nasal [place] MONICA 2 sprays QPM DARCIE Administration Gabapentin 300 mg 12/27/23 22:00 12/29/23 21:58 Gabapentin 300 Mg Capsule PO 300 mg TID DARCIE Administration Heparin Sodium (Porcine) 5,000 unit 12/28/23 09:00 12/29/23 20:57 Heparin 5,000 Unit/Ml Vial SUBQ 5,000 unit BID DARCIE Administration Cefepime HCl 1 gm/ Sodium 100 mls @ 200 mls/hr 12/19/23 22:00 12/29/23 21:58 Chloride IV 200 mls/hr Q8H DARCIE Administration Doxycycline Hyclate 100 mg/ 100 mls @ 100 mls/hr 12/19/23 21:00 12/29/23 22:08 Sodium Chloride IV Infused Q12H DARCIE Infusion Vancomycin HCl 1 gm/ Sodium 250 mls @ 167 mls/hr 12/27/23 09:00 12/29/23 20:43 Chloride IV 167 mls/hr Q12H DARCIE Administration Insulin Glargine-yfgn 10 unit 12/24/23 09:32 12/29/23 20:57 Insulin Glargine-Yfgn 300 Unit/3 Ml Pen SUBQ 10 unit BID DARCIE Administration Insulin Human Regular 3 - 11 unit 12/26/23 06:00 12/29/23 18:01 Insulin Regular Human 300 Unit/3 Ml Vial SUBQ 3 unit Q6HR DARCIE Administration Protocol Lisinopril 5 mg 12/25/23 14:09 12/29/23 09:48 Lisinopril 5 Mg Tablet NG Not Given DAILY DARCIE Methadone HCl 5 mg 12/27/23 09:00 12/29/23 09:49 Methadone 5 Mg Tablet PO 5 mg DAILY DARCIE Administration Methadone HCl 5 mg 12/29/23 20:00 12/29/23 20:24 Methadone 5 Mg Tablet PO 12/30/23 19:59 5 mg ONCE DARCIE Administration Methylprednisolone 40 mg 12/27/23 09:00 12/29/23 09:49 Methylprednisolone Succinate 40 Mg/Ml Vial IVP 40 mg DAILY DARCIE Administration Metoprolol Tartrate 25 mg 12/24/23 09:00 12/29/23 21:00 Metoprolol Tartrate 25 Mg Tablet PO 25 mg BID DARCIE Administration Nitroglycerin 0.5 inch 12/24/23 13:00 12/29/23 18:12 Nitroglycerin 2% Paste TOP 0.5 inch Q6H DARCIE Administration Phenol/Menthol 2 sprays 12/19/23 20:31 12/19/23 22:29 Phenol Throat [place] 177 Ml MM 2 sprays Q2HR PRN Administration Throat Pain Sodium Chloride 10 ml 12/20/23 01:00 12/29/23 18:00 Sodium Chloride Flush 0.9% 10 Ml Syringe IVP 10 ml 0100,0900,1700 DARCIE Administration Sodium Chloride 10 ml 12/19/23 17:32 12/29/23 20:45 Sodium Chloride Flush 0.9% 10 Ml Syringe IVP 20 ml PRN PRN Administration NEEDED PER PROVIDER ORDERS - Lab Result Fish Bone Diagrams: 12/29/23 08:30 12/29/23 08:30 - Additional Planning My Orders: My Active Orders 12/29/23 15:58 BIPAP [BIPAP/CPAP - RT] [RC] Q2H 12/29/23 20:00 Methadone [Methadone Hcl] 5 mg PO ONCE Subjective - Subjective Patient Reports: Other (Patient extubated this afternoon. He is able to answer some questions. He is not able to raise his arms. His right arm appears weaker than his left.) Objective Vital Signs: Vital Signs - 24 hr 12/28/23 12/29/23 12/29/23 23:00 00:00 00:02 Temperature 36.8 C Heart Rate 98 Heart Rate [ 98 99 Monitoring electrodes] Respiratory 22 18 Rate Blood Pressure Blood Pressure 106/87 H 101/70 [Left Brachial artery] Blood Pressure [Right Brachial artery] O2 Saturation 95 97 If not protocol : Oxygen Flow, liters/minute 12/29/23 12/29/23 12/29/23 00:07 01:00 02:00 Temperature Heart Rate 98 Heart Rate [ 102 H 100 Monitoring electrodes] Respiratory 18 24 20 Rate Blood Pressure Blood Pressure 99/71 107/71 [Left Brachial artery] Blood Pressure [Right Brachial artery] O2 Saturation 96 96 If not protocol : Oxygen Flow, liters/minute 12/29/23 12/29/23 12/29/23 03:00 03:59 04:20 Temperature Heart Rate 98 Heart Rate [ 100 97 Monitoring electrodes] Respiratory 21 20 Rate Blood Pressure Blood Pressure 117/76 105/72 [Left Brachial artery] Blood Pressure [Right Brachial artery] O2 Saturation 96 97 If not protocol : Oxygen Flow, liters/minute 12/29/23 12/29/23 12/29/23 04:27 05:00 06:00 Temperature 37.1 C Heart Rate 98 Heart Rate [ 102 H 95 Monitoring electrodes] Respiratory 24 22 22 Rate Blood Pressure Blood Pressure 110/76 113/68 [Left Brachial artery] Blood Pressure [Right Brachial artery] O2 Saturation 96 92 If not protocol : Oxygen Flow, liters/minute 12/29/23 12/29/23 12/29/23 07:00 07:14 08:00 Temperature Heart Rate 108 H Heart Rate [ 105 H 100 Monitoring electrodes] Respiratory 24 24 21 Rate Blood Pressure Blood Pressure 116/73 71/49 L [Left Brachial artery] Blood Pressure [Right Brachial artery] O2 Saturation 96 96 If not protocol : Oxygen Flow, liters/minute 12/29/23 12/29/23 12/29/23 08:10 08:15 08:30 Temperature Heart Rate Heart Rate [ 100 96 100 Monitoring electrodes] Respiratory 22 20 21 Rate Blood Pressure Blood Pressure 66/57 L 68/43 L 102/67 [Left Brachial artery] Blood Pressure [Right Brachial artery] O2 Saturation 100 95 96 If not protocol : Oxygen Flow, liters/minute 12/29/23 12/29/23 12/29/23 08:45 09:00 09:40 Temperature Heart Rate 100 Heart Rate [ 102 H 99 Monitoring electrodes] Respiratory 20 20 Rate Blood Pressure Blood Pressure [Left Brachial artery] Blood Pressure 108/68 101/65 [Right Brachial artery] O2 Saturation 96 96 If not protocol : Oxygen Flow, liters/minute 12/29/23 12/29/23 12/29/23 09:49 10:00 11:00 Temperature 98.3 C H Heart Rate Heart Rate [ 93 98 Monitoring electrodes] Respiratory 16 19 Rate Blood Pressure 90/61 Blood Pressure [Left Brachial artery] Blood Pressure 114/68 113/72 [Right Brachial artery] O2 Saturation 99 97 If not protocol : Oxygen Flow, liters/minute 12/29/23 12/29/23 12/29/23 11:15 12:00 13:00 Temperature Heart Rate 100 98 Heart Rate [ 110 H 105 H Monitoring electrodes] Respiratory 18 20 19 Rate Blood Pressure Blood Pressure [Left Brachial artery] Blood Pressure 139/85 H 124/70 [Right Brachial artery] O2 Saturation 97 98 If not protocol : Oxygen Flow, liters/minute 12/29/23 12/29/23 12/29/23 13:30 14:00 15:00 Temperature Heart Rate Heart Rate [ 109 H 107 H 106 H Monitoring electrodes] Respiratory 22 20 22 Rate Blood Pressure Blood Pressure [Left Brachial artery] Blood Pressure 126/73 111/68 113/74 [Right Brachial artery] O2 Saturation 97 95 96 If not protocol 6 6 6 : Oxygen Flow, liters/minute 12/29/23 12/29/23 12/29/23 15:12 15:29 16:00 Temperature 37.1 C Heart Rate 108 H Heart Rate [ 109 H Monitoring electrodes] Respiratory 16 18 Rate Blood Pressure Blood Pressure [Left Brachial artery] Blood Pressure 98/64 [Right Brachial artery] O2 Saturation 94 If not protocol 6 5 5 : Oxygen Flow, liters/minute 12/29/23 12/29/23 12/29/23 17:00 18:00 19:00 Temperature Heart Rate Heart Rate [ 113 H 110 H 111 H Monitoring electrodes] Respiratory 16 20 20 Rate Blood Pressure Blood Pressure [Left Brachial artery] Blood Pressure 114/69 130/80 106/73 [Right Brachial artery] O2 Saturation 96 97 96 If not protocol 5 4 4 : Oxygen Flow, liters/minute 12/29/23 12/29/23 12/29/23 20:00 20:01 21:00 Temperature 36.9 C Heart Rate 107 H Heart Rate [ 107 H 107 H Monitoring electrodes] Respiratory 18 21 22 Rate Blood Pressure 111/73 Blood Pressure [Left Brachial artery] Blood Pressure 119/82 H 111/73 [Right Brachial artery] O2 Saturation 96 93 If not protocol 4 4 4 : Oxygen Flow, liters/minute 12/29/23 12/29/23 22:00 22:15 Temperature Heart Rate 85 Heart Rate [ 86 Monitoring electrodes] Respiratory 19 Rate Blood Pressure Blood Pressure [Left Brachial artery] Blood Pressure 99/75 [Right Brachial artery] O2 Saturation 94 If not protocol 4 : Oxygen Flow, liters/minute Oxygen O2 Source Nasal cannula Oxygen Flow Rate 3 I&O (Last 24 Hrs): Intake and Output Totals x24h 12/27/23 12/28/23 12/29/23 23:59 23:59 23:59 Intake Total 3220 2903 1968.83 Output Total 4100 4425 4615 [place] [id number] [id number] -0066.17 General: Alert, No acute distress HEENT: Atraumatic Neck: Supple, No JVD Neuro: Alert, Other (Patient moving his lower extremities and able to raise his legs against gravity. He is not able to raise his right arm or left arm against gravity.) Respiratory: Chest non-tender, No respiratory distress, Breath sounds nml Abdomen: Normal bowel sounds, No tenderness, No hepatospenomegaly Skin: No rashes - Results Results: Laboratory Results WBC 10.7 x10^3/uL (4.8-10.8) 12/29/23 08:30 RBC 3.62 10^6/uL (4.70-6.10) L 12/29/23 08:30 Hgb 9.9 g/dL (14.0-18.0) L 12/29/23 08:30 Hct 32.8 % (42.0-52.0) L 12/29/23 08:30 MCV 90.6 fL (80.0-94.0) 12/29/23 08:30 MCH 27.3 pg (27.0-31.0) 12/29/23 08:30 MCHC 30.2 g/dL (32.0-36.0) L 12/29/23 08:30 RDW 15.8 % (12.0-15.0) H 12/29/23 08:30 Plt Count 276 10^3/uL (130-450) 12/29/23 08:30 MPV 9.9 fL (7.4-11.4) 12/29/23 08:30 Neut # (Auto) 8.6 10^3/uL (1.5-6.6) H 12/29/23 08:30 Lymph # (Auto) 0.9 10^3/uL (1.5-3.5) L 12/29/23 08:30 [place] # (Auto) 1.0 10^3/uL (0.0-1.0) 12/29/23 08:30 Eos # (Auto) 0.0 10^3/uL (0.0-0.7) 12/29/23 08:30 Baso # (Auto) 0.0 10^3/uL (0.0-0.1) 12/29/23 08:30 Absolute Nucleated RBC 0.02 x10^3/uL 12/29/23 08:30 Total Counted 100 12/20/23 04:16 Band Neuts % (Manual) 16 % (0-10) H 12/20/23 04:16 Abnorm Lymph % (Manual) 0 % 12/20/23 04:16 Myelocytes % 1 % (-0) H 12/20/23 04:16 Nucleated RBC % 0.2 /100WBC 12/29/23 08:30 Neutrophils # (Manual) 16.4 10^3/uL (1.5-6.6) H 12/20/23 04:16 Lymphocytes # (Manual) 0.9 10^3/uL (1.5-3.5) L 12/20/23 04:16 Monocytes # (Manual) 0.0 10^3/uL (0.0-1.0) 12/20/23 04:16 Eosinophils # (Manual) 0.0 10^3/uL (0-0.7) 12/20/23 04:16 Basophils # (Manual) 0.0 10^3/uL (0-0.1) 12/20/23 04:16 Differential Comment MANUAL DIFFERENTIAL 12/20/23 04:16 Manual Slide Review Indicated 12/19/23 12:45 Platelet Estimate NORMAL (130-450,000) (NORMAL) 12/20/23 04:16 RBC Morph Micro Appear NORMAL APPEARANCE (NORMAL) 12/20/23 04:16 D-Dimer 266.7 ng/mL (200.0-255.0) H 12/19/23 12:45 Bld Gas Analysis Time 91812/29/23 09:10 Sample Site RIGHT RADIAL 12/29/23 09:10 ABG pH 7.47 (7.35-7.45) H 12/29/23 09:10 ABG pCO2 40 mmHg (34-45) 12/29/23 09:10 ABG pO2 101 mmHg (80-100) H 12/29/23 09:10 ABG HCO3 27.8 mmol/L (22.0-26.0) H 12/29/23 09:10 ABG Total CO2 29.0 MMOL/L (21.0-29.0) 12/29/23 09:10 ABG O2 Saturation 97 % (94-98) 12/29/23 09:10 ABG Base Excess 3.8 mmol/L (-2.0-3.0) H 12/29/23 09:10 Moi Test POSITIVE 12/29/23 09:10 VBG pH 7.450 (7.31-7.41) H 12/29/23 08:32 VBG pCO2 41.8 mmHg (41-51) 12/26/23 14:25 VBG pO2 133.9 mmHg (25-47) H 12/26/23 14:25 VBG HCO3 30.0 mmol/L (23-28) H 12/26/23 14:25 VBG Total CO2 31.3 mmol/L (24-29) H 12/26/23 14:25 VBG O2 Saturation 98.5 % (60-80) H 12/26/23 14:25 VBG Base Excess 5.9 mmol/L (-2 - +2) H 12/26/23 14:25 Ionized Calcium 1.14 mmol/L (1.15-1.33) L 12/29/23 08:32 Respiration Rate 16 b/min 12/29/23 09:10 O2 Delivery Device VENTILATOR 12/29/23 09:10 O2 Liters/Min 3.00 LPM 12/19/23 14:45 Vent Mode ASSIST/CONTROL 12/29/23 09:10 FiO2 35.00 12/29/23 09:10 Tidal Volume 420 mL 12/29/23 09:10 PEEP 5 cmH2O 12/29/23 09:10 EPAP 5 cmH2O 12/20/23 11:10 IPAP 12 cmH2O 12/20/23 11:10 Sodium 137 mmol/L (135-145) 12/29/23 08:30 Potassium 4.4 mmol/L (3.5-4.5) 12/29/23 08:30 Chloride 104 mmol/L (101-111) 12/29/23 08:30 Carbon Dioxide 29 mmol/L (21-32) 12/29/23 08:30 Anion Gap 4.0 (6-13) L 12/29/23 08:30 BUN 38 mg/dL (6-20) H 12/29/23 08:30 Creatinine 0.6 mg/dL (0.6-1.3) 12/29/23 08:30 Estimated GFR (MDRD) 137 (>89) 12/29/23 08:30 Glucose 106 mg/dL (74-104) H 12/29/23 08:30 POC Whole Bld Glucose 127 mg/dL (70 - 100) H 12/29/23 20:31 Estimat Average Glucose 143 mg/dL (70-100) H 12/20/23 04:16 Hemoglobin A1c % 6.6 % (4.27-6.07) H 12/20/23 04:16 Lactic Acid 0.7 mmol/L (0.5-2.2) 12/20/23 13:35 Calcium 8.9 mg/dL (8.5-10.3) 12/29/23 08:30 Phosphorus 3.7 mg/dL (2.5-5.0) 12/29/23 05:16 Magnesium 2.0 mg/dL (1.7-2.3) 12/29/23 05:16 Total Bilirubin 0.4 mg/dL (0.2-1.0) 12/28/23 09:15 AST 15 IU/L (10-42) 12/28/23 09:15 ALT 32 IU/L (10-60) 12/28/23 09:15 Alkaline Phosphatase 53 IU/L (42-121) 12/28/23 09:15 Troponin I High Sens 792.0 ng/L (2.3-19.7) H* 12/21/23 15:55 C-React Prot High Sens 82.40 mg/L 12/19/23 12:45 Total Protein 5.4 g/dL (6.4-8.9) L 12/28/23 09:15 Albumin 2.9 g/dL (3.2-5.5) L 12/28/23 09:15 Globulin 2.5 g/dL (2.1-4.2) 12/28/23 09:15 Albumin/Globulin Ratio 1.2 (1.0-2.2) 12/28/23 09:15 Prealbumin 34 mg/dL (17-34) 12/27/23 04:23 Triglycerides 214 mg/dL (48-352) 12/24/23 04:53 Vitamin B12 983 pg/mL (180-914) H 12/20/23 04:16 Folate 7.2 ng/mL (5.90 - >24.8) 12/20/23 04:16 Nasal Adenovirus (PCR) NOT DETECTED 12/19/23 11:11 Nasal B. parapertussis DNA (PCR) NOT DETECTED 12/19/23 11:11 Nasal Coronavir 229E PCR NOT DETECTED 12/19/23 11:11 Nasal Coronavir HKU1 PCR NOT DETECTED 12/19/23 11:11 Nasal Coronavir NL63 PCR NOT DETECTED 12/19/23 11:11 Nasal Coronavir OC43 PCR NOT DETECTED 12/19/23 11:11 Nasal Enterovir/Rhinovir PCR NOT DETECTED 12/19/23 11:11 Nasal Influenza B PCR NOT DETECTED 12/19/23 11:11 Nasal Influenza A PCR NOT DETECTED 12/19/23 11:11 Nasal Parainfluen 1 PCR NOT DETECTED 12/19/23 11:11 Nasal Parainfluen 2 PCR NOT DETECTED 12/19/23 11:11 Nasal Parainfluen 3 PCR NOT DETECTED 12/19/23 11:11 Nasal Parainfluen 4 PCR NOT DETECTED 12/19/23 11:11 Nasal RSV (PCR) NOT DETECTED 12/19/23 11:11 Nasal Screen MRSA (PCR) NEGATIVE (NEGATIVE) 12/19/23 18:20 Nasal B.pertussis DNA PCR NOT DETECTED 12/19/23 11:11 Nasal C.pneumoniae (PCR) NOT DETECTED 12/19/23 11:11 Monica Human Metapneumo PCR NOT DETECTED 12/19/23 11:11 Nasal M.pneumoniae (PCR) NOT DETECTED 12/19/23 11:11 Nasal SARS-CoV-2 (PCR) NOT DETECTED 12/19/23 11:11 Stl Occult Blood (IFOB) POSITIVE (NEGATIVE) A 12/28/23 06:00 Last Dose Date 12/26/23 12/27/23 04:23 Last Dose Time 08:44 12/27/23 04:23 Vancomycin Trough 27.6 ug/mL H* 12/26/23 04:15 Random Vancomycin 11.9 ug/mL 12/27/23 04:23
[2023-12-30] MEDS: DEXTROSE 50% ABBOJECT 25 GM/50 ML SYRINGE IVP ONE (06:28)
[2023-12-30] MEDS: DEXTROSE 5% 1,000 ML IV SCH (06:29)
[2023-12-30 07:18] LABS: CALCIUM 8.7 mg/dL (8.5-10.3); CREATININE 0.5 mg/dL (0.6-1.3); PHOSPHORUS 3.6 mg/dL (2.5-5.0); POTASSIUM 3.7 mmol/L (3.5-4.5)
--- NOTE | 2023-12-30 08:56 | PROVIDER PROGRESS NOTE ---
Subjective - Prog Note Date Prog Note Date: 12/30/23 Prog Note Time: 14:07 - Subjective Pt reports feeling: Improved (did well overnight, repeatedly asks to go home despite explanation why he cannot do so (this is baseline per staff), denies pain, has "a little" dyspnea, still not able to really move R arm much but has improved movement overall) Objective - Vital Signs/Intake & Output Vital Signs: Vital Signs Temp Pulse Pulse Resp BP Pulse Ox O2 Flow Rate 12/30/23 08:00 36.7 C 86 12 99/66 98 4 12/30/23 07:28 84 16 4 12/30/23 07:00 82 11 L 105/63 98 4 12/30/23 06:41 4 12/30/23 06:00 81 22 106/74 97 12/30/23 05:00 79 24 99/63 96 Intake & Output: Intake & Output 12/27/23 12/28/23 12/29/23 12/30/23 23:59 23:59 23:59 23:59 Intake Total 3220 2903 2318.83 Output Total 4101 4408 4135 700 Balance -880 -1522 -2436.17 -700 - Lab Results Fish Bones: 12/29/23 08:30 12/30/23 05:20 Other Labs: Lab Results x24hrs 12/30/23 12/30/23 12/30/23 Range/Units 07:52 07:08 06:16 WBC (4.8-10.8) x10^3/uL RBC (4.70-6.10) 10^6/uL Hgb (14.0-18.0) g/dL Hct (42.0-52.0) % MCV (80.0-94.0) fL MCH (27.0-31.0) pg MCHC (32.0-36.0) g/dL RDW (12.0-15.0) % Plt Count (130-450) 10^3/uL MPV (7.4-11.4) fL Neut # (Auto) (1.5-6.6) 10^3/uL Lymph # (Auto) (1.5-3.5) 10^3/uL [place] # (Auto) (0.0-1.0) 10^3/uL Eos # (Auto) (0.0-0.7) 10^3/uL Baso # (Auto) (0.0-0.1) 10^3/uL Absolute Nucleated RBC x10^3/uL Nucleated RBC % /100WBC Bld Gas Analysis Time Sample Site ABG pH (7.35-7.45) ABG pCO2 (34-45) mmHg ABG pO2 (80-100) mmHg ABG HCO3 (22.0-26.0) mmol/L ABG Total CO2 (21.0-29.0) MMOL/L ABG O2 Saturation (94-98) % ABG Base Excess (-2.0-3.0) mmol/L Moi Test VBG pH (7.31-7.41) Ionized Calcium (1.15-1.33) mmol/L Respiration Rate b/min O2 Delivery Device Vent Mode FiO2 Tidal Volume mL PEEP cmH2O Sodium (135-145) mmol/L Potassium (3.5-4.5) mmol/L Chloride (101-111) mmol/L Carbon Dioxide (21-32) mmol/L Anion Gap (6-13) BUN (6-20) mg/dL Creatinine (0.6-1.3) mg/dL Estimated GFR (MDRD) (>89) Glucose (74-104) mg/dL POC Whole Bld Glucose 108 H 122 H 65 L (70 - 100) mg/dL Calcium (8.5-10.3) mg/dL Phosphorus (2.5-5.0) mg/dL Magnesium (1.7-2.3) mg/dL 12/30/23 12/29/23 12/29/23 Range/Units 05:20 23:59 20:31 WBC (4.8-10.8) x10^3/uL RBC (4.70-6.10) 10^6/uL Hgb (14.0-18.0) g/dL Hct (42.0-52.0) % MCV (80.0-94.0) fL MCH (27.0-31.0) pg MCHC (32.0-36.0) g/dL RDW (12.0-15.0) % Plt Count (130-450) 10^3/uL MPV (7.4-11.4) fL Neut # (Auto) (1.5-6.6) 10^3/uL Lymph # (Auto) (1.5-3.5) 10^3/uL [place] # (Auto) (0.0-1.0) 10^3/uL Eos # (Auto) (0.0-0.7) 10^3/uL Baso # (Auto) (0.0-0.1) 10^3/uL Absolute Nucleated RBC x10^3/uL Nucleated RBC % /100WBC Bld Gas Analysis Time Sample Site ABG pH (7.35-7.45) ABG pCO2 (34-45) mmHg ABG pO2 (80-100) mmHg ABG HCO3 (22.0-26.0) mmol/L ABG Total CO2 (21.0-29.0) MMOL/L ABG O2 Saturation (94-98) % ABG Base Excess (-2.0-3.0) mmol/L Moi Test VBG pH (7.31-7.41) Ionized Calcium (1.15-1.33) mmol/L Respiration Rate b/min O2 Delivery Device Vent Mode FiO2 Tidal Volume mL PEEP cmH2O Sodium 139 (135-145) mmol/L Potassium 3.7 (3.5-4.5) mmol/L Chloride 104 (101-111) mmol/L Carbon Dioxide 30 (21-32) mmol/L Anion Gap 5.0 L (6-13) BUN 27 H (6-20) mg/dL Creatinine 0.5 L (0.6-1.3) mg/dL Estimated GFR (MDRD) 170 (>89) Glucose 62 L (74-104) mg/dL POC Whole Bld Glucose 87 127 H (70 - 100) mg/dL Calcium 8.7 (8.5-10.3) mg/dL Phosphorus 3.6 (2.5-5.0) mg/dL Magnesium 2.0 (1.7-2.3) mg/dL 12/29/23 12/29/23 12/29/23 Range/Units 17:59 11:44 09:10 WBC (4.8-10.8) x10^3/uL RBC (4.70-6.10) 10^6/uL Hgb (14.0-18.0) g/dL Hct (42.0-52.0) % MCV (80.0-94.0) fL MCH (27.0-31.0) pg MCHC (32.0-36.0) g/dL RDW (12.0-15.0) % Plt Count (130-450) 10^3/uL MPV (7.4-11.4) fL Neut # (Auto) (1.5-6.6) 10^3/uL Lymph # (Auto) (1.5-3.5) 10^3/uL [place] # (Auto) (0.0-1.0) 10^3/uL Eos # (Auto) (0.0-0.7) 10^3/uL Baso # (Auto) (0.0-0.1) 10^3/uL Absolute Nucleated RBC x10^3/uL Nucleated RBC % /100WBC Bld Gas Analysis Time 0919 Sample Site RIGHT RADIAL ABG pH 7.47 H (7.35-7.45) ABG pCO2 40 (34-45) mmHg ABG pO2 101 H (80-100) mmHg ABG HCO3 27.8 H (22.0-26.0) mmol/L ABG Total CO2 29.0 (21.0-29.0) MMOL/L ABG O2 Saturation 97 (94-98) % ABG Base Excess 3.8 H (-2.0-3.0) mmol/L Moi Test POSITIVE VBG pH (7.31-7.41) Ionized Calcium (1.15-1.33) mmol/L Respiration Rate 16 b/min O2 Delivery Device VENTILATOR Vent Mode ASSIST/CONTROL FiO2 35.00 Tidal Volume 420 mL PEEP 5 cmH2O Sodium (135-145) mmol/L Potassium (3.5-4.5) mmol/L Chloride (101-111) mmol/L Carbon Dioxide (21-32) mmol/L Anion Gap (6-13) BUN (6-20) mg/dL Creatinine (0.6-1.3) mg/dL Estimated GFR (MDRD) (>89) Glucose (74-104) mg/dL POC Whole Bld Glucose 171 H 112 H (70 - 100) mg/dL Calcium (8.5-10.3) mg/dL Phosphorus (2.5-5.0) mg/dL Magnesium (1.7-2.3) mg/dL 12/29/23 12/29/23 12/29/23 Range/Units 08:32 08:30 08:30 WBC 10.7 (4.8-10.8) x10^3/uL RBC 3.62 L (4.70-6.10) 10^6/uL Hgb 9.9 L (14.0-18.0) g/dL Hct 32.8 L (42.0-52.0) % MCV 90.6 (80.0-94.0) fL MCH 27.3 (27.0-31.0) pg MCHC 30.2 L (32.0-36.0) g/dL RDW 15.8 H (12.0-15.0) % Plt Count 276 (130-450) 10^3/uL MPV 9.9 (7.4-11.4) fL Neut # (Auto) 8.6 H (1.5-6.6) 10^3/uL Lymph # (Auto) 0.9 L (1.5-3.5) 10^3/uL [place] # (Auto) 1.0 (0.0-1.0) 10^3/uL Eos # (Auto) 0.0 (0.0-0.7) 10^3/uL Baso # (Auto) 0.0 (0.0-0.1) 10^3/uL Absolute Nucleated RBC 0.02 x10^3/uL Nucleated RBC % 0.2 /100WBC Bld Gas Analysis Time Sample Site ABG pH (7.35-7.45) ABG pCO2 (34-45) mmHg ABG pO2 (80-100) mmHg ABG HCO3 (22.0-26.0) mmol/L ABG Total CO2 (21.0-29.0) MMOL/L ABG O2 Saturation (94-98) % ABG Base Excess (-2.0-3.0) mmol/L Moi Test VBG pH 7.450 H (7.31-7.41) Ionized Calcium 1.14 L (1.15-1.33) mmol/L Respiration Rate b/min O2 Delivery Device Vent Mode FiO2 Tidal Volume mL PEEP cmH2O Sodium 137 (135-145) mmol/L Potassium 4.4 (3.5-4.5) mmol/L Chloride 104 (101-111) mmol/L Carbon Dioxide 29 (21-32) mmol/L Anion Gap 4.0 L (6-13) BUN 38 H (6-20) mg/dL Creatinine 0.6 (0.6-1.3) mg/dL Estimated GFR (MDRD) 137 (>89) Glucose 106 H (74-104) mg/dL POC Whole Bld Glucose (70 - 100) mg/dL Calcium 8.9 (8.5-10.3) mg/dL Phosphorus (2.5-5.0) mg/dL Magnesium (1.7-2.3) mg/dL Assessment/Plan - Problem List (1) Acute respiratory failure with hypoxia and hypercapnia Impression: Improved. Prior notes state h/o 2L O2 at home at baseline. Recent treatment for hospital-acquired pneumonia and influenza A in early November. Hypercapnia on admit CO2 70, trial Bipap, then intubated. Extubated 12/28. Significantly improved. Uses Bipap at home. Plan: use Bipap prn sleep Son was asked to bring in home machine Continue nebs as needed (2) Heart failure with mid-range ejection fraction (HFmEF) Impression: Echo 12/19/23 with LVEF 45-50%, reduced from echo in 2019 which showed EF 65%. On Lasix at home. Currently diuresis on hold. Plan: Monitor fluid status closely in setting of RV dysfunction Lisinopril and metoprolol were stopped due to hypotension (3) Dysfunction of right cardiac ventricle Impression: Echo 12/19/23 showed dilated RV and decreased RV systolic function with RV fractional area exchange of 30% Plan: Monitor volume status closely, diuresis as indicated (4) DM type 2 (diabetes mellitus, type 2) Impression: Continue insulin protocol, adjust dosing as needed. 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 Suspect elevated troponins due to demand from respiratory failure, although RV infarct is in the differential and possible due to RV dysfunction. Allergy to aspirin. Plan: Continue Plavix. Recommend outpatient follow up with cardiology for ischemic workup (non-urgent) (6) Osteomyelitis Impression: Ulceration R foot. Has been present since at least 06/2023. Goes to [facility] wound clinic. Note 12/19/[address] Brown: debridement of all heel ulcers and sent bone sample for culture (done at [facility]). Admitted to [facility] 11/19/23 to 12/06/23 for foot cellulitis, osteo was considered possible but now seems unlikely. Plan: ED spoke to ID Dr. Kearney who recommended below regimen. Continue cefepime, vancomycin and doxycycline. Follow up on bone sample culture results Surgical consult completed for wound Qualifiers: Osteomyelitis type: other chronic Osteomyelitis location: foot Laterality: right Qualified Code(s): M86.671 - Other chronic osteomyelitis, right ankle and foot (7) Severe persistent asthma Impression: Improved. Plan: Continue DuoNeb, budesonide, home dose of steroids. Qualifiers: Asthma complication type: with acute exacerbation Qualified Code(s): J45.51 - Severe persistent asthma with (acute) exacerbation (8) EN (obstructive sleep apnea) Impression: As above. Plan: Family to bring in his positive airway pressure device. Currently on bilevel positive airway pressure therapy with IPAP/EPAP 10/06. (9) Chronic back pain Impression: Uses cannabis edibles, gabapentin, methadone at home. Plan: continue home gabapentin at lower dose. Decreased dose methadone to 5 mg daily, if develops worsening pain consider increasing slowly back to home dosing. Qualifiers: Back pain location: low back pain Back pain laterality: left Sciatica presence: without sciatica Qualified Code(s): M54.50 - Low back pain, unspecified; G89.29 - Other chronic pain (10) Hypertension Impression: BP stable since extubation. Not on meds at home. Was on lisinopril, metoprolol, and nitro paste, all of which have been stopped. Plan: monitor BP Qualifiers: Hypertension type: unspecified Qualified Code(s): I10 - Essential (primary) hypertension (11) Altered mental status Impression: Improved. Required extended time to awaken once sedation was stopped. CT head 12/27 negative for acute findings. Given that he appeared to have flaccid paralysis in his upper extremities, he underwent a CT scan of the cervical spine which did not reveal any acute fracture or traumatic malalignment. Patient has h/o anterior cervical discectomy of C4-C7. (12) Community acquired pneumonia Impression: Resolved. Continue to monitor respiratory status. Qualifiers: Lung location: unspecified part of lung (13) On mechanically assisted ventilation Impression: Resolved. Extubated 12/28. (14) Hematochezia Impression: Reported episode of blood in stool overnight 12/27, no further blood noted. Stool hemoccult positive. No evidence of abdominal pain or rigidity, stable VS, no evidence of significant GI bleeding. Hgb is improved since prior. Plan: Continue Plavix due possible recent [place] Continue SQ heparin for DVT prophylaxis, he is at high risk of DVT Monitor H/H as indicated
[2023-12-30] MEDS: INSULIN LISPRO 300 UNIT/3 ML PEN SUBQ SCH (17:05)
[2023-12-31 06:09] LABS: CALCIUM 8.8 mg/dL (8.5-10.3); CREATININE 0.5 mg/dL (0.6-1.3); MAGNESIUM 1.9 mg/dL (1.7-2.3); PHOSPHORUS 2.9 mg/dL (2.5-5.0); POTASSIUM 3.9 mmol/L (3.5-4.5)
--- NOTE | 2023-12-31 11:44 | PROVIDER PROGRESS NOTE ---
Subjective - Prog Note Date Prog Note Date: 12/31/23 Prog Note Time: 11:42 - Subjective Pt reports feeling: Improved (Asks for [employer]. Sputum cx results reviewed. Taking Ensure PO. Still asks to go home. Denies pain, shortness of breath, nausea. No new issues per staff.) Subjective: This patient continues to require hospitalization due to respiratory failure (needs continued monitoring due to recent extubation). Anticipated discharge plan is to SNF. Current Medications - Current Medications Current Medications: Active Medications Generic Name Dose Route Start Last Admin Trade Name Freq PRN Reason Stop Dose Admin Albuterol/Ipratropium 3 ml 12/19/23 19:35 12/24/23 03:09 Ipratropium/Albuterol 3 Ml Neb INH 3 ml Q4HR PRN Administration Wheezing Albuterol/Ipratropium 3 ml 12/23/23 12:00 12/31/23 07:09 Ipratropium/Albuterol 3 Ml Neb INH 3 ml RTQ4H DARICE Administration Budesonide 0.5 mg 12/19/23 19:36 12/31/23 07:09 Budesonide 0.5 Mg/2 Ml Neb INH 0.5 mg RTBID DARCIE Administration Chlorhexidine Gluconate 15 ml 12/22/23 10:22 12/31/23 09:39 Chlorhexidine Gluconate 15 Ml Udc PO 15 ml BID DARCIE Administration Clopidogrel Bisulfate 75 mg 12/20/23 18:20 12/31/23 09:39 Clopidogrel 75 Mg Tablet PO 75 mg DAILY DARCIE Administration Famotidine 20 mg 12/31/23 21:00 Famotidine 20 Mg Tablet PO BID DARCIE Fentanyl 25 mcg 12/25/23 09:19 12/31/23 05:51 Fentanyl 100 Mcg/2 Ml Vial IVP 25 mcg Q4HR PRN Administration Severe Pain (Level 7-10) Fluticasone Propionate 2 sprays 12/19/23 21:00 12/30/23 21:04 Fluticasone Nasal [place] MONICA 2 sprays QPM DARCIE Administration Gabapentin 300 mg 12/27/23 22:00 12/31/23 05:51 Gabapentin 300 Mg Capsule PO 300 mg TID DARCIE Administration Heparin Sodium (Porcine) 5,000 unit 12/28/23 09:00 12/31/23 09:40 Heparin 5,000 Unit/Ml Vial SUBQ 5,000 unit BID DARCIE Administration Cefepime HCl 1 gm/ Sodium 100 mls @ 200 mls/hr 12/19/23 22:00 12/31/23 06:28 Chloride IV Infused Q8H DARCIE Infusion Doxycycline Hyclate 100 mg/ 100 mls @ 100 mls/hr 12/19/23 21:00 12/31/23 10:39 Sodium Chloride IV Infused Q12H DARCIE Infusion Vancomycin HCl 1 gm/ Sodium 250 mls @ 167 mls/hr 12/27/23 09:00 12/31/23 09:40 Chloride IV 167 mls/hr Q12H DARCIE Administration Insulin Human Lispro 1 - 9 unit 12/30/23 17:00 12/31/23 09:39 Insulin Lispro 300 Unit/3 Ml Pen SUBQ Not Given 0800,1200,1700,2100 [facility] Protocol Methadone HCl 5 mg 12/27/23 09:00 12/31/23 09:39 Methadone 5 Mg Tablet PO 5 mg DAILY DARCIE Administration Methylprednisolone 40 mg 12/27/23 09:00 12/31/23 09:40 Methylprednisolone Succinate 40 Mg/Ml Vial IVP 40 mg DAILY DARCIE Administration Nitroglycerin 0.5 inch 12/24/23 13:00 12/31/23 07:02 Nitroglycerin 2% Paste TOP 0.5 inch Q6H DARCIE Administration Theophylline 1 each 12/19/23 21:00 Anhydrous [ PO Theophylline Er] 300 BID DARCIE Mg Tab.Er.12h Phenol/Menthol 2 sprays 12/19/23 20:31 12/19/23 22:29 Phenol Throat [place] 177 Ml MM 2 sprays Q2HR PRN Administration Throat Pain Sodium Chloride 10 ml 12/20/23 01:00 12/31/23 09:41 Sodium Chloride Flush 0.9% 10 Ml Syringe IVP 30 ml 0100,0900,1700 DARCIE Administration Sodium Chloride 10 ml 12/19/23 17:32 12/31/23 06:28 Sodium Chloride Flush 0.9% 10 Ml Syringe IVP 10 ml PRN PRN Administration NEEDED PER PROVIDER ORDERS Albuterol Sulfate [Proair Hfa Inhaler] 2 puffs INH Q4H PRN 03/30/18 Fluticasone [Flonase] 1 spray MONICA BID 05/07/21 Gabapentin [Neurontin] 900 mg PO TID 05/07/21 Furosemide [Lasix] 20 mg PO BID 05/25/21 Montelukast [Singulair] 10 mg PO QPM 05/25/21 Methadone [Methadone Hcl] 10 mg PO QDAC 12/19/23 Theophylline Anhydrous [Theophylline ER] 300 mg PO BID 12/19/23 Azithromycin 500 mg PO UD 12/20/23 Beclomethasone Dipropionate [Qvar Redihaler (80 mcg)] 1 puffs INH BID 12/20/23 Budesonide/Formoterol Fumarate [Symbicort 160-4.5 Mcg Inhaler] 2 puffs INH BID 12/20/23 Ferrous Sulfate [Feosol] 325 mg PO DAILY 12/20/23 Fexofenadine HCl 180 mg PO DAILY 12/20/23 Ipratropium [place] 2 spray MONICA TID 12/20/23 Ipratropium/Albuterol [Combivent Respimat] 1 puffs INH QID 12/20/23 Ipratropium/Albuterol [Duoneb] 3 ml PO Q4H PRN 12/20/23 Methadone [Methadone Hcl] 5 mg PO QPM 12/20/23 Multivitamin with Minerals [Multivitamins with Minerals] 1 tab PO DAILY 12/20/23 Nystatin [Mycostatin] 5 ml PO QID 12/20/23 Pantoprazole [Protonix] 40 mg PO BID 12/20/23 Sertraline [Zoloft] 25 mg PO DAILY 12/20/23 Sulfamethox/Trimeth 800/160 [Bactrim Ds] 1 tab PO UD 12/20/23 Umeclidinium [place] [Incruse Ellipta] 1 inh INH DAILY 12/20/23 guaiFENesin [Chest Congestion Relief] 400 mg PO Q6H PRN 12/20/23 Objective - Vital Signs/Intake & Output Reviewed Vital Signs: Yes Vital Signs: Vital Signs Temp Pulse Resp BP Pulse Ox O2 Flow Rate 12/31/23 11:00 109 H 19 122/76 95 2 12/31/23 10:00 114 H 21 119/64 96 4 12/31/23 09:37 36.7 C 12/31/23 09:00 36.6 C 110 H 22 108/64 94 4 12/31/23 08:00 112 H 16 112/66 92 4 Intake & Output: Intake & Output 12/28/23 12/29/23 12/30/23 12/31/23 23:59 23:59 23:59 23:59 Intake Total 2903 2318.83 1611.667 410 Output Total 4420 8888 2305 525 Balance -1522 -9626.17 -693.333 -115 - Objective General Appearance: positive: No acute distress, Alert Respiratory: positive: No respiratory distress, Rhonchi Cardiovascular: positive: Regular rate & rhythm, No murmur Peripheral Pulses: 1+ Dorsalis pedis (L) Abdomen: positive: Non-tender, No organomegaly, Nml bowel sounds, No distention Skin: positive: Color nml, No rash, Warm, Dry Extremities: positive: Other (LLE no pedal edema. RLE with dressing intact. Sensation and motion intact to toes.) Neurologic/Psychiatric: positive: Weakness, Other (oriented to self and hospita l, answers questions, perseverates and repeats questions at times.) Comments/Other: Able to lift left arm off bed slightly. 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 - Lab Results Fish Bones: 12/29/23 08:30 12/31/23 05:15 Other Labs: Lab Results x24hrs 12/31/23 12/31/23 12/30/23 Range/Units 08:25 05:15 20:46 Sodium 139 (135-145) mmol/L Potassium 3.9 (3.5-4.5) mmol/L Chloride 104 (101-111) mmol/L Carbon Dioxide 29 (21-32) mmol/L Anion Gap 6.0 (6-13) BUN 20 (6-20) mg/dL Creatinine 0.5 L (0.6-1.3) mg/dL Estimated GFR (MDRD) 170 (>89) Glucose 73 L (74-104) mg/dL POC Whole Bld Glucose 85 190 H (70 - 100) mg/dL Calcium 8.8 (8.5-10.3) mg/dL Phosphorus 2.9 (2.5-5.0) mg/dL Magnesium 1.9 (1.7-2.3) mg/dL 12/30/23 12/30/23 Range/Units 16:54 11:51 Sodium (135-145) mmol/L Potassium (3.5-4.5) mmol/L Chloride (101-111) mmol/L Carbon Dioxide (21-32) mmol/L Anion Gap (6-13) BUN (6-20) mg/dL Creatinine (0.6-1.3) mg/dL Estimated GFR (MDRD) (>89) Glucose (74-104) mg/dL POC Whole Bld Glucose 171 H 130 H (70 - 100) mg/dL Calcium (8.5-10.3) mg/dL Phosphorus (2.5-5.0) mg/dL Magnesium (1.7-2.3) mg/dL Assessment/Plan - Problem List (1) Acute respiratory failure with hypoxia and hypercapnia Impression: Improved. Prior notes state h/o 2L O2 at home at baseline. Recent treatment for hospital-acquired pneumonia and influenza A in early November. Hypercapnia on admit CO2 70, trial Bipap, then intubated. Extubated 12/28. Significantly imp roved. Uses Bipap at home. Plan: use Bipap prn sleep Son was asked to bring in home machine Continue nebs as needed (2) Heart failure with mid-range ejection fraction (HFmEF) Impression: Echo 12/19/23 with LVEF 45-50%, reduced from echo in 2020 which showed EF 65%. On Lasix at home. Currently diuresis on hold. Plan: Monitor fluid status closely in setting of RV dysfunction Lisinopril and metoprolol were stopped due to hypotension (3) Dysfunction of right cardiac ventricle Impression: Echo 12/19/23 showed dilated RV and decreased RV systolic function with RV fractional area exchange of 30% Plan: Monitor volume status closely (4) DM type 2 (diabetes mellitus, type 2) Impression: Continue insulin protocol, adjust dosing as needed. 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 Suspect elevated troponins due to demand from respiratory failure, although RV infarct is in the differential and possible due to RV dysfunction. Allergy to aspirin. Plan: Continue Plavix. Recommend outpatient follow up with cardiology for ischemic workup (non-urgent) (6) Osteomyelitis Impression: Ulceration R foot. Has been present since at least 06/2023. Goes to [facility] wound clinic. Note 12/19/[address] Brown: debridement of all heel ulcers and sent bone sample for culture (done at [facility]). Admitted to [facility] 11/19/23 to 12/06/23 for foot cellulitis, osteo was considered possible but now seems unlikely. Plan: ED spoke to ID Dr. Kearney who recommended below regimen. Continue cefepime, vancomycin and doxycycline. Follow up on bone sample culture results Surgical consult completed for wound Qualifiers: Osteomyelitis type: other chronic Osteomyelitis location: foot Laterality: right Qualified Code(s): M86.671 - Other chronic osteomyelitis, right ankle and foot (7) Severe persistent asthma Impression: Improved. Plan: Continue DuoNeb, budesonide. Qualifiers: Asthma complication type: with acute exacerbation Qualified Code(s): J45.51 - Severe persistent asthma with (acute) exacerbation (8) EN (obstructive sleep apnea) Impression: As above. Plan: Family to bring in his positive airway pressure device. Currently on bilevel positive airway pressure therapy with IPAP/EPAP 10/06. (9) Chronic back pain Impression: Uses cannabis edibles, gabapentin, methadone at home. Plan: continue home gabapentin at lower dose, consider increasing if has persistent pain Increase methadone to 5 mg BID (takes 15 mg at home) Qualifiers: Back pain location: low back pain Back pain laterality: left Sciatica presence: without sciatica Qualified Code(s): M54.50 - Low back pain, unspecified; G89.29 - Other chronic pain (10) Hypertension Impression: BP stable since extubation. Not on meds at home. Was on lisinopril, metoprolol, and nitro paste, all of which have been stopped. Plan: monitor BP Qualifiers: Hypertension type: unspecified Qualified Code(s): I10 - Essential (primary) hypertension (11) Community acquired pneumonia Impression: Resolved. Continue to monitor respiratory status. Sputum cx grew Pseudomonas (already on cefepime) and yeast (final report pending) Qualifiers: Lung location: unspecified part of lung (12) Altered mental status Impression: Improved, seems to be back to baseline mental status. Required extended time to awaken once sedation was stopped. CT head 12/27 negative for acute findings. Given that he appeared to have flaccid paralysis in his upper extremities, he underwent a CT scan of the cervical spine which did not reveal any acute fracture or traumatic malalignment. Patient has h/o anterior cervical discectomy of C4-C7. (13) On mechanically assisted ventilation Impression: resolved (14) Hematochezia Impression: resolved
[2023-12-31] MEDS: FAMOTIDINE 20 MG TABLET PO SCH (20:47)
[2023-12-31] MEDS: METHADONE 5 MG TABLET PO PRN (20:47)
--- NOTE | 2024-01-01 00:30 | PROVIDER PROGRESS NOTE ---
Hospitalist Cross-cover Note - Cross-Cover Note Cross-Cover Note: Hospitalist Cross Cover Pt with episode of bloody stool, BP 118/86, HR 110. Last Hgb 9.9 Chart reviewed, pt with prior history of hematochezia on 12/27 was self limited, per progress note on 12/27 "Plan: Continue Plavix due possible recent [place] Continue SQ heparin for DVT prophylaxis, he is at high risk of DVT." STAT H&H ordered. Further plan pending Hgb trend. Reviewed with MITESH.
[2024-01-01 00:46] LABS: HCT - HEMATOCRIT 32.6 % (42.0-52.0); HGB - HEMOGLOBIN 9.4 g/dL (14.0-18.0)
[2024-01-01] MEDS: MORPHINE 2 MG/ML CARPUJECT IVP STA (01:13)
[2024-01-01] MEDS ORDERED: NITROGLYCERIN SL 0.4 MG TABLET SL PRN (05:24)
--- NOTE | 2024-01-01 06:24 | PROVIDER PROGRESS NOTE ---
Subcontract Manager Note - Subcontract Manager Note Subcontract Manager Note: Consult Information Member Facility: [facility] Facility Requesting Clinician: Masha Burt Patient Name: Manjit Montaño Date of : 1965 Gender: Male Reason for Consult Reason for Consult: Other Emergent Clinical Note Clinical Note: per rn - "Pt. is c/o of his left chest hurting rate of 8/10. He was on nitro paste a day ago but MD has dc'd that. VS this time HR-116, RR-19, B/P-101/74, Sats 95% on 4L. Pt. did have a type 2 [place] this admission. Telemetry doesn't show any changes. He also had a large amt. of bloody stool last night with stable H&H. Suggest troponin and EKG now. Pt. is a bit confused and just keep saying help my chest hurts." check ekg and trop nitro SL prn continue close monitoring
[2024-01-01 06:28] LABS: BASOPHILS % (AUTO) 0.1 %; EOSINOPHILS % (AUTO) 0.3 %; HCT - HEMATOCRIT 26.5 % (42.0-52.0); HGB - HEMOGLOBIN 8.2 g/dL (14.0-18.0); LYMPHOCYTES # (AUTO) 0.9 10^3/uL (1.5-3.5); LYMPHOCYTES % (AUTO) 6.3 %; MEAN CORPUSCULAR HGB CONC 30.9 g/dL (32.0-36.0); MEAN CORPUSCULAR VOLUME 90.4 fL (80.0-94.0); MEAN PLATELET VOLUME 10.2 fL (7.4-11.4); MONOCYTES # (AUTO) 1.4 10^3/uL (0.0-1.0); MONOCYTES % (AUTO) 9.6 %; NEUTROPHILS # (AUTO) 11.7 10^3/uL (1.5-6.6); PLT - PLATELET COUNT 338 10^3/uL (130-450); RED BLOOD COUNT 2.93 10^6/uL (4.70-6.10); RED CELL DISTRIBUTION WIDTH 15.6 % (12.0-15.0); WHITE BLOOD COUNT 14.2 x10^3/uL (4.8-10.8)
[2024-01-01 06:39] LABS: BUN - BLOOD UREA NITROGEN 30 mg/dL (6-20); CALCIUM 8.6 mg/dL (8.5-10.3); CARBON DIOXIDE - CO2 27 mmol/L (21-32); CHLORIDE 106 mmol/L (101-111); CREATININE 0.5 mg/dL (0.6-1.3); GFR - MDRD 170 (>89); GLUCOSE 97 mg/dL (74-104); MAGNESIUM 1.7 mg/dL (1.7-2.3); PHOSPHORUS 2.9 mg/dL (2.5-5.0); POTASSIUM 3.9 mmol/L (3.5-4.5); SODIUM 139 mmol/L (135-145)
[2024-01-01 06:54] LABS: VANCOMYCIN,TROUGH 27.6 ug/mL
--- NOTE | 2024-01-01 08:08 | PROVIDER PROGRESS NOTE ---
Assessment/Plan - Problem List (1) Right arm weakness Assessment/Plan: New problem right arm barely able to against gravity no facial droop, both lower ext moves -however, patient has high risk for ischemic stroke -MRI brain to rule out stroke (2) Acute respiratory failure with hypoxia and hypercapnia Assessment/Plan: s/p extubation on 12/28 still on nasal cannula, repeat blood gas, no sign of CO2 retention -BiPAP prn (3) Heart failure with mid-range ejection fraction (HFmEF) Assessment/Plan: EF 45-50%, no leg swollen, no JVP -appears euvolemic -continue monitoring (4) Type 2 WV (myocardial infarction) Assessment/Plan: Secondary to respiratory failure -continue Plavix (5) Osteomyelitis Qualifiers: Osteomyelitis type: other chronic Osteomyelitis location: foot Laterality: right Qualified Code(s): M86.671 - Other chronic osteomyelitis, right ankle and foot Assessment/Plan: Right foot osteomyelitis -contineu with cefepime, vancomycin and doxycycline, per ID Bavaro -pharmacy consult for vanco level (6) Positive culture findings in sputum Assessment/Plan: Sputum culture positive with nova, pseudomonous -recent intubated patient -well covered by cefepiem for pseudomonous -Will consult with patient's ID for the needs of antifungal treatment (7) Acute blood loss anemia Assessment/Plan: Two black stool with clot reported likely from stress ulcer, secondary to infection, ICU ventilator use Hb down to 8.2 (from 11-->9.4) -Give one unit PRBC -give protonix 40mg iv bid -follow up H&H in pm -transfusion if Hb<8 - Current Meds Current Meds: Current Medications Generic Name Dose Route Start Last Admin Trade Name Freq PRN Reason Stop Dose Admin Albuterol/Ipratropium 3 ml 12/19/23 19:35 12/24/23 03:09 Ipratropium/Albuterol 3 Ml Neb INH 3 ml Q4HR PRN Administration Wheezing Albuterol/Ipratropium 3 ml 12/23/23 12:00 01/01/24 06:38 Ipratropium/Albuterol 3 Ml Neb INH 3 ml RTQ4H DARCIE Administration Budesonide 0.5 mg 12/19/23 19:36 01/01/24 06:38 Budesonide 0.5 Mg/2 Ml Neb INH 0.5 mg RTBID DARCIE Administration Famotidine 20 mg 12/31/23 21:00 12/31/23 20:47 Famotidine 20 Mg Tablet PO 20 mg BID DARCIE Administration Fluticasone Propionate 2 sprays 12/19/23 21:00 12/31/23 20:47 Fluticasone Nasal [place] MONICA 2 sprays QPM DARCIE Administration Gabapentin 300 mg 12/27/23 22:00 01/01/24 05:38 Gabapentin 300 Mg Capsule PO 300 mg TID DARCIE Administration Cefepime HCl 1 gm/ Sodium 100 mls @ 200 mls/hr 12/19/23 22:00 01/01/24 06:16 Chloride IV Infused Q8H DARCIE Infusion Doxycycline Hyclate 100 mg/ 100 mls @ 100 mls/hr 12/19/23 21:00 12/31/23 21:50 Sodium Chloride IV Infused Q12H DARCIE Infusion Vancomycin HCl 1 gm/ Sodium 250 mls @ 167 mls/hr 12/27/23 09:00 12/31/23 23:00 Chloride IV Infused Q12H DARCIE Infusion Insulin Human Lispro 1 - 9 unit 12/30/23 17:00 12/31/23 20:48 Insulin Lispro 300 Unit/3 Ml Pen SUBQ 5 unit 0800,1200,1700,2100 DARCIE Administration Protocol Methadone HCl 5 mg 12/31/23 14:38 12/31/23 20:47 Methadone 5 Mg Tablet PO 5 mg BID PRN Administration PAIN 5-7 Phenol/Menthol 2 sprays 12/19/23 20:31 12/19/23 22:29 Phenol Throat [place] 177 Ml MM 2 sprays Q2HR PRN Administration Throat Pain Sodium Chloride 10 ml 12/20/23 01:00 01/01/24 00:25 Sodium Chloride Flush 0.9% 10 Ml Syringe IVP Not Given 0100,0900,1700 DARCIE Sodium Chloride 10 ml 12/19/23 17:32 01/01/24 05:38 Sodium Chloride Flush 0.9% 10 Ml Syringe IVP 10 ml PRN PRN Administration NEEDED PER PROVIDER ORDERS - Lab Result Fish Bone Diagrams: 01/01/24 08:23 01/01/24 05:34 - Additional Planning Condition/Complexity: Unstable Plan Discussed with:: Patient Time Spent: Greater than 60 minutes Additional Planning Notes: Patient is not medically stable for discharge. Further work up on new problems is ongoing. Subjective - Subjective Patient Reports: Other (feels ok, no particular compliants) Nursing Reports: Other (righ arm weakness noted, episode of agitation in pm, and more lethargic) Objective Vital Signs: Vital Signs - 24 hr 12/31/23 12/31/23 12/31/23 09:00 09:37 10:00 Temperature 36.6 C 36.7 C Heart Rate Heart Rate [ 110 H 114 H Monitoring electrodes] Heart Rate [ Sitting] Respiratory 22 21 Rate Blood Pressure 108/64 119/64 [Right Brachial artery] Blood Pressure [Sitting] O2 Saturation 94 96 O2 Saturation [ Sitting] If not protocol 4 4 : Oxygen Flow, liters/minute 12/31/23 12/31/23 12/31/23 10:23 11:00 12:00 Temperature Heart Rate Heart Rate [ 109 H 109 H Monitoring electrodes] Heart Rate [ 112 H Sitting] Respiratory 19 24 Rate Blood Pressure 122/76 123/71 [Right Brachial artery] Blood Pressure 119/64 [Sitting] O2 Saturation 95 94 O2 Saturation [ 96 Sitting] If not protocol 4 2 : Oxygen Flow, liters/minute 12/31/23 12/31/23 12/31/23 17:00 18:11 20:16 Temperature 36.8 C 36.5 C Heart Rate 113 H Heart Rate [ 98 115 H Monitoring electrodes] Heart Rate [ Sitting] Respiratory 18 16 24 Rate Blood Pressure 124/76 132/81 H [Right Brachial artery] Blood Pressure [Sitting] O2 Saturation 95 94 O2 Saturation [ Sitting] If not protocol 4 4 4 : Oxygen Flow, liters/minute 01/01/24 01/01/24 01/01/24 01:00 04:19 06:41 Temperature 36.6 C Heart Rate 116 H Heart Rate [ 108 H 112 H Monitoring electrodes] Heart Rate [ Sitting] Respiratory 17 15 23 Rate Blood Pressure 95/52 L 93/63 [Right Brachial artery] Blood Pressure [Sitting] O2 Saturation 96 98 O2 Saturation [ Sitting] If not protocol 4 4 4 : Oxygen Flow, liters/minute 01/01/24 06:42 Temperature Heart Rate Heart Rate [ Monitoring electrodes] Heart Rate [ Sitting] Respiratory Rate Blood Pressure [Right Brachial artery] Blood Pressure [Sitting] O2 Saturation O2 Saturation [ Sitting] If not protocol 4 : Oxygen Flow, liters/minute Oxygen O2 Source [With Activity] Nasal cannula O2 Source [Without Activity] Nasal cannula O2 Source CPAP Oxygen Flow Rate 3 I&O (Last 24 Hrs): Intake and Output Totals x24h 12/30/23 12/31/23 01/01/24 23:59 23:59 23:59 Intake Total 5015.998 6525 100 Output Total 2305 1525 Balance -693.333 -195 100 General: Alert, Other (chronic ill appearance, on nasal cannula) HEENT: PERRLA, EOMI Neck: No JVD Neuro: Alert, Other (can not lift right arm) Cardiovascular: Other (tachycardia 100-110s) Respiratory: Chest non-tender, Breath sounds nml Abdomen: No tenderness Extremities: No clubbing, No cyanosis, No edema - Results Results: Laboratory Results WBC 14.2 x10^3/uL (4.8-10.8) H 01/01/24 05:34 RBC 2.93 10^6/uL (4.70-6.10) L 01/01/24 05:34 Hgb 8.2 g/dL (14.0-18.0) L 01/01/24 05:34 Hct 26.5 % (42.0-52.0) L 01/01/24 05:34 MCV 90.4 fL (80.0-94.0) 01/01/24 05:34 MCH 28.0 pg (27.0-31.0) 01/01/24 05:34 MCHC 30.9 g/dL (32.0-36.0) L 01/01/24 05:34 RDW 15.6 % (12.0-15.0) H 01/01/24 05:34 Plt Count 338 10^3/uL (130-450) 01/01/24 05:34 MPV 10.2 fL (7.4-11.4) 01/01/24 05:34 Neut # (Auto) 11.7 10^3/uL (1.5-6.6) H 01/01/24 05:34 Lymph # (Auto) 0.9 10^3/uL (1.5-3.5) L 01/01/24 05:34 [place] # (Auto) 1.4 10^3/uL (0.0-1.0) H 01/01/24 05:34 Eos # (Auto) 0.0 10^3/uL (0.0-0.7) 01/01/24 05:34 Baso # (Auto) 0.0 10^3/uL (0.0-0.1) 01/01/24 05:34 Absolute Nucleated RBC 0.00 x10^3/uL 01/01/24 05:34 Total Counted 100 12/20/23 04:16 Band Neuts % (Manual) 16 % (0-10) H 12/20/23 04:16 Abnorm Lymph % (Manual) 0 % 12/20/23 04:16 Myelocytes % 1 % (-0) H 12/20/23 04:16 Nucleated RBC % 0.0 /100WBC 01/01/24 05:34 Neutrophils # (Manual) 16.4 10^3/uL (1.5-6.6) H 12/20/23 04:16 Lymphocytes # (Manual) 0.9 10^3/uL (1.5-3.5) L 12/20/23 04:16 Monocytes # (Manual) 0.0 10^3/uL (0.0-1.0) 12/20/23 04:16 Eosinophils # (Manual) 0.0 10^3/uL (0-0.7) 12/20/23 04:16 Basophils # (Manual) 0.0 10^3/uL (0-0.1) 12/20/23 04:16 Differential Comment MANUAL DIFFERENTIAL 12/20/23 04:16 Manual Slide Review Indicated 12/19/23 12:45 Platelet Estimate NORMAL (130-450,000) (NORMAL) 12/20/23 04:16 RBC Morph Micro Appear NORMAL APPEARANCE (NORMAL) 12/20/23 04:16 D-Dimer 266.7 ng/mL (200.0-255.0) H 12/19/23 12:45 Bld Gas Analysis Time 91812/29/23 09:10 Sample Site RIGHT RADIAL 12/29/23 09:10 ABG pH 7.47 (7.35-7.45) H 12/29/23 09:10 ABG pCO2 40 mmHg (34-45) 12/29/23 09:10 ABG pO2 101 mmHg (80-100) H 12/29/23 09:10 ABG HCO3 27.8 mmol/L (22.0-26.0) H 12/29/23 09:10 ABG Total CO2 29.0 MMOL/L (21.0-29.0) 12/29/23 09:10 ABG O2 Saturation 97 % (94-98) 12/29/23 09:10 ABG Base Excess 3.8 mmol/L (-2.0-3.0) H 12/29/23 09:10 Moi Test POSITIVE 12/29/23 09:10 VBG pH 7.450 (7.31-7.41) H 12/29/23 08:32 VBG pCO2 41.8 mmHg (41-51) 12/26/23 14:25 VBG pO2 133.9 mmHg (25-47) H 12/26/23 14:25 VBG HCO3 30.0 mmol/L (23-28) H 12/26/23 14:25 VBG Total CO2 31.3 mmol/L (24-29) H 12/26/23 14:25 VBG O2 Saturation 98.5 % (60-80) H 12/26/23 14:25 VBG Base Excess 5.9 mmol/L (-2 - +2) H 12/26/23 14:25 Ionized Calcium 1.14 mmol/L (1.15-1.33) L 12/29/23 08:32 Respiration Rate 16 b/min 12/29/23 09:10 O2 Delivery Device VENTILATOR 12/29/23 09:10 O2 Liters/Min 3.00 LPM 12/19/23 14:45 Vent Mode ASSIST/CONTROL 12/29/23 09:10 FiO2 35.00 12/29/23 09:10 Tidal Volume 420 mL 12/29/23 09:10 PEEP 5 cmH2O 12/29/23 09:10 EPAP 5 cmH2O 12/20/23 11:10 IPAP 12 cmH2O 12/20/23 11:10 Sodium 139 mmol/L (135-145) 01/01/24 05:34 Potassium 3.9 mmol/L (3.5-4.5) 01/01/24 05:34 Chloride 106 mmol/L (101-111) 01/01/24 05:34 Carbon Dioxide 27 mmol/L (21-32) 01/01/24 05:34 Anion Gap 6.0 (6-13) 01/01/24 05:34 BUN 30 mg/dL (6-20) H 01/01/24 05:34 Creatinine 0.5 mg/dL (0.6-1.3) L 01/01/24 05:34 Estimated GFR (MDRD) 170 (>89) 01/01/24 05:34 Glucose 97 mg/dL (74-104) 01/01/24 05:34 POC Whole Bld Glucose 98 mg/dL (70 - 100) 01/01/24 07:46 Estimat Average Glucose 143 mg/dL (70-100) H 12/20/23 04:16 Hemoglobin A1c % 6.6 % (4.27-6.07) H 12/20/23 04:16 Lactic Acid 0.7 mmol/L (0.5-2.2) 12/20/23 13:35 Calcium 8.6 mg/dL (8.5-10.3) 01/01/24 05:34 Phosphorus 2.9 mg/dL (2.5-5.0) 01/01/24 05:34 Magnesium 1.7 mg/dL (1.7-2.3) 01/01/24 05:34 Total Bilirubin 0.4 mg/dL (0.2-1.0) 12/28/23 09:15 AST 15 IU/L (10-42) 12/28/23 09:15 ALT 32 IU/L (10-60) 12/28/23 09:15 Alkaline Phosphatase 53 IU/L (42-121) 12/28/23 09:15 Troponin I High Sens 21.7 ng/L (2.3-19.7) H* 01/01/24 05:34 C-React Prot High Sens 82.40 mg/L 12/19/23 12:45 Total Protein 5.4 g/dL (6.4-8.9) L 12/28/23 09:15 Albumin 2.9 g/dL (3.2-5.5) L 12/28/23 09:15 Globulin 2.5 g/dL (2.1-4.2) 12/28/23 09:15 Albumin/Globulin Ratio 1.2 (1.0-2.2) 12/28/23 09:15 Prealbumin 34 mg/dL (17-34) 12/27/23 04:23 Triglycerides 214 mg/dL (48-352) 12/24/23 04:53 Vitamin B12 983 pg/mL (180-914) H 12/20/23 04:16 Folate 7.2 ng/mL (5.90 - >24.8) 12/20/23 04:16 Nasal Adenovirus (PCR) NOT DETECTED 12/19/23 11:11 Nasal B. parapertussis DNA (PCR) NOT DETECTED 12/19/23 11:11 Nasal Coronavir 229E PCR NOT DETECTED 12/19/23 11:11 Nasal Coronavir HKU1 PCR NOT DETECTED 12/19/23 11:11 Nasal Coronavir NL63 PCR NOT DETECTED 12/19/23 11:11 Nasal Coronavir OC43 PCR NOT DETECTED 12/19/23 11:11 Nasal Enterovir/Rhinovir PCR NOT DETECTED 12/19/23 11:11 Nasal Influenza B PCR NOT DETECTED 12/19/23 11:11 Nasal Influenza A PCR NOT DETECTED 12/19/23 11:11 Nasal Parainfluen 1 PCR NOT DETECTED 12/19/23 11:11 Nasal Parainfluen 2 PCR NOT DETECTED 12/19/23 11:11 Nasal Parainfluen 3 PCR NOT DETECTED 12/19/23 11:11 Nasal Parainfluen 4 PCR NOT DETECTED 12/19/23 11:11 Nasal RSV (PCR) NOT DETECTED 12/19/23 11:11 Nasal Screen MRSA (PCR) NEGATIVE (NEGATIVE) 12/19/23 18:20 Nasal B.pertussis DNA PCR NOT DETECTED 12/19/23 11:11 Nasal C.pneumoniae (PCR) NOT DETECTED 12/19/23 11:11 Monica Human Metapneumo PCR NOT DETECTED 12/19/23 11:11 Nasal M.pneumoniae (PCR) NOT DETECTED 12/19/23 11:11 Nasal SARS-CoV-2 (PCR) NOT DETECTED 12/19/23 11:11 Stl Occult Blood (IFOB) POSITIVE (NEGATIVE) A 12/28/23 06:00 Last Dose Date 12/31/23 01/01/24 05:34 Last Dose Time 2300 01/01/24 05:34 Vancomycin Trough 27.6 ug/mL H* 01/01/24 05:34 Random Vancomycin 11.9 ug/mL 12/27/23 04:23 Sepsis Event Note (H) - Evaluation Current Stage of Sepsis: Ruled out ABX Reporting Has patient been on IV antibiotics over the past 48 hours?: Yes Current Medications - Current Medications Current Medications: Active Medications Generic Name Dose Route Start Last Admin Trade Name Freq PRN Reason Stop Dose Admin Albuterol/Ipratropium 3 ml 12/19/23 19:35 12/24/23 03:09 Ipratropium/Albuterol 3 Ml Neb INH 3 ml Q4HR PRN Administration Wheezing Albuterol/Ipratropium 3 ml 12/23/23 12:00 01/01/24 14:08 Ipratropium/Albuterol 3 Ml Neb INH 3 ml RTQ4H DARCIE Administration Budesonide 0.5 mg 12/19/23 19:36 01/01/24 06:38 Budesonide 0.5 Mg/2 Ml Neb INH 0.5 mg RTBID DARCIE Administration Famotidine 20 mg 12/31/23 21:00 01/01/24 08:25 Famotidine 20 Mg Tablet PO 20 mg BID DARCIE Administration Fluticasone Propionate 2 sprays 12/19/23 21:00 12/31/23 20:47 Fluticasone Nasal [place] MONICA 2 sprays QPM DARCIE Administration Gabapentin 300 mg 12/27/23 22:00 01/01/24 13:45 Gabapentin 300 Mg Capsule PO 300 mg TID DARCIE Administration Cefepime HCl 1 gm/ Sodium 100 mls @ 200 mls/hr 12/19/23 22:00 01/01/24 14:34 Chloride IV Infused Q8H DARCIE Infusion Doxycycline Hyclate 100 mg/ 100 mls @ 100 mls/hr 12/19/23 21:00 01/01/24 09:30 Sodium Chloride IV Infused Q12H DARCIE Infusion Vancomycin HCl 1 gm/ Sodium 250 mls @ 167 mls/hr 12/27/23 09:00 12/31/23 23:00 Chloride IV Infused Q12H DARCIE Infusion Insulin Human Lispro 1 - 9 unit 12/30/23 17:00 01/01/24 17:00 Insulin Lispro 300 Unit/3 Ml Pen SUBQ Not Given 0800,1200,1700,2100 [facility] Protocol Methadone HCl 5 mg 12/31/23 14:38 01/01/24 08:25 Methadone 5 Mg Tablet PO 5 mg BID PRN Administration PAIN 5-7 Nitroglycerin 0.4 mg 01/01/24 05:24 Nitroglycerin Sl 0.4 Mg Tablet SL Q5MIN PRN Chest Pain Pantoprazole Sodium 40 mg 01/01/24 21:00 Pantoprazole 40 Mg Tablet PO BID DARCIE Theophylline 1 each 12/19/23 21:00 Anhydrous [ PO Theophylline Er] 300 BID DARCIE Mg Tab.Er.12h Phenol/Menthol 2 sprays 12/19/23 20:31 12/19/23 22:29 Phenol Throat [place] 177 Ml MM 2 sprays Q2HR PRN Administration Throat Pain Sodium Chloride 10 ml 12/20/23 01:00 01/01/24 13:45 Sodium Chloride Flush 0.9% 10 Ml Syringe IVP 10 ml 0100,0900,1700 DARCIE Administration Sodium Chloride 10 ml 12/19/23 17:32 01/01/24 05:38 Sodium Chloride Flush 0.9% 10 Ml Syringe IVP 10 ml PRN PRN Administration NEEDED PER PROVIDER ORDERS Albuterol Sulfate [Proair Hfa Inhaler] 2 puffs INH Q4H PRN 03/30/18 Fluticasone [Flonase] 1 spray MONICA BID 05/07/21 Gabapentin [Neurontin] 900 mg PO TID 05/07/21 Furosemide [Lasix] 20 mg PO BID 05/25/21 Montelukast [Singulair] 10 mg PO QPM 05/25/21 Methadone [Methadone Hcl] 10 mg PO QDAC 12/19/23 Theophylline Anhydrous [Theophylline ER] 300 mg PO BID 12/19/23 Azithromycin 500 mg PO UD 12/20/23 Beclomethasone Dipropionate [Qvar Redihaler (80 mcg)] 1 puffs INH BID 12/20/23 Budesonide/Formoterol Fumarate [Symbicort 160-4.5 Mcg Inhaler] 2 puffs INH BID 12/20/23 Ferrous Sulfate [Feosol] 325 mg PO DAILY 12/20/23 Fexofenadine HCl 180 mg PO DAILY 12/20/23 Ipratropium Bostic 2 spray MONICA TID 12/20/23 Ipratropium/Albuterol [Combivent Respimat] 1 puffs INH QID 12/20/23 Ipratropium/Albuterol [Duoneb] 3 ml PO Q4H PRN 12/20/23 Methadone [Methadone Hcl] 5 mg PO QPM 12/20/23 Multivitamin with Minerals [Multivitamins with Minerals] 1 tab PO DAILY 12/20/23 Nystatin [Mycostatin] 5 ml PO QID 12/20/23 Pantoprazole [Protonix] 40 mg PO BID 12/20/23 Sertraline [Zoloft] 25 mg PO DAILY 12/20/23 Sulfamethox/Trimeth 800/160 [Bactrim Ds] 1 tab PO UD 12/20/23 Umeclidinium Bostic [Incruse Ellipta] 1 inh INH DAILY 12/20/23 guaiFENesin [Chest Congestion Relief] 400 mg PO Q6H PRN 12/20/23
[2024-01-01 08:27] LABS: HCT - HEMATOCRIT 27.1 % (42.0-52.0); HGB - HEMOGLOBIN 8.2 g/dL (14.0-18.0)
[2024-01-01] MEDS: PANTOPRAZOLE 80 MG in SODIUM CHLORIDE 0.9% 100ML 100 ML IV SCH (09:10)
--- NOTE | 2024-01-01 14:33 | PHARMACY PROGRESS NOTE ---
- Therapy Status Vancomycin regimen day #: 14 Therapy status: Trough supratherapeutic Basis for treatment: Empirical Treatment indication: ACUTE RESPIRATORY FAILURE, PNA, OSTEO (SV ID RECOMMENDED ABXS) Trough goal: 400-600 Concurrent antibiotics: CEFEPIME, DOXYCYCLINE - POP Risk Risk level for Acute Kidney Injury: High Acute Kidney Injury risk factors: Other nephrotoxic agents, Duration >7 days, Goal trough >15, Admission to ICU (PATIENT FOLLOWED BY [facility] ID WHO RECOMMENDED CURRENT ABX REGIMEN) - Monitoring and Recommendation Clinical response to treatment: Lab Results 12/19/23 12:45 BUN 24 H Creatinine 1.2 Estimated GFR (MDRD) 62 L Cultures 12/19/23 13:40 Blood - Right Hand Blood Culture - Final NO GROWTH AFTER 5 DAYS 12/19/23 13:43 Blood - Left Hand Blood Culture - Final NO GROWTH AFTER 5 DAYS Areas for additional monitoring: IV to PO when appropriate, Therapy de- escalation based on culture results, Acute Kidney Injury Pharmacy recommendation: Hold dose (TROUGH SUPRA-THERAPEUTIC THIS AM. HOLDING ALL DOSES TODAY, 01/01/24. REPEAT A RANDOM LEVEL TOMORROW AM. SCR REMAINS STABLE. D/T TWO SUPRA-THERAPEUTIC LEVELS ON 1G Q12H REGIMEN, WILL REASSESS AND LIKELY DECREASE REGIMEN TOMORROW.)
[2024-01-01 16:36] LABS: ABG BASE EXCESS 3.6 mmol/L (-2.0-3.0); ABG HCO3 27.6 mmol/L (22.0-26.0); ABG OXYGEN SATURATION 89 % (94-98); ABG PCO2 39 mmHg (34-45); ABG PH 7.46 (7.35-7.45); ABG PO2 55 mmHg (80-100); ABG TCO2 28.9 MMOL/L (21.0-29.0); ALLEN TEST POSITIVE
[2024-01-01] MEDS: LORazepam 2 MG/ML VIAL IVP STA (18:47)
--- NOTE | 2024-01-01 20:21 | MRI Report ---
PROCEDURE: Brain WO INDICATIONS: right arm weakness, leathargic TECHNIQUE: Noncontrast axial T1 spin echo, axial T2 fast spin echo, sagittal and axial FLAIR, coronal T2 fast sp in echo, axial gradient echo, axial diffusion and ADC through the brain. COMPARISON: CT of the brain dated 12/28/2023. FINDINGS: Image quality: Diagnostic. Patient motion is noted. CSF Spaces: Basal cisterns are patent. No extra-axial fluid collections. Ventricles are normal in size and shape. Brain: No intracranial masses or hemorrhage. Rodriguez/white matter interface is normal. Brainstem appe ars normal. Diffusion-weighted images demonstrate no acute ischemic insult. There is age-related vol ume loss. [id number] periventricular and deep white matter chronic small vessel ischemic change s also seen. Normal intravascular flow voids are present. Skull and face: Calvarium has normal marrow signal. Orbits appear normal. Sinuses: Sinuses and mastoids are clear. IMPRESSION: 1. No acute infarction. No acute intracranial bleed, midline shift or mass effect. 2. Age related volume loss and mild to moderate white matter chronic small vessel ischemic changes. Reviewed by: Reinier Gunn MD on 01/01/2024 8:20 PM PST Approved by: Reinier Gunn MD on 01/01/2024 8:20 PM PST Station ID: [id number]
[2024-01-01 21:54] LABS: HCT - HEMATOCRIT 27.8 % (42.0-52.0); HGB - HEMOGLOBIN 8.3 g/dL (14.0-18.0)
[2024-01-01] MEDS: PANTOPRAZOLE 40 MG TABLET PO SCH (22:09)
[2024-01-01] MEDS: SODIUM CHLORIDE 0.9% 500 ML IV ONE (22:46)
[2024-01-01] MEDS: ACETAMINOPHEN 1,000 MG/100 ML 1,000 MG/100 ML BAG IV ONE (23:26)
[2024-01-02 04:32] LABS: BASOPHILS % (AUTO) 0.3 %; EOSINOPHILS # (AUTO) 0.1 10^3/uL (0.0-0.7); EOSINOPHILS % (AUTO) 0.9 %; HCT - HEMATOCRIT 25.3 % (42.0-52.0); LYMPHOCYTES % (AUTO) 8.3 %; MEAN CORPUSCULAR HEMOGLOBIN 27.6 pg (27.0-31.0); MEAN CORPUSCULAR HGB CONC 27.3 g/dL (32.0-36.0); MEAN CORPUSCULAR VOLUME 101.2 fL (80.0-94.0); MEAN PLATELET VOLUME 9.8 fL (7.4-11.4); MONOCYTES # (AUTO) 1.3 10^3/uL (0.0-1.0); MONOCYTES % (AUTO) 10.8 %; NEUTROPHILS # (AUTO) 9.4 10^3/uL (1.5-6.6); PLT - PLATELET COUNT 334 10^3/uL (130-450); RED CELL DISTRIBUTION WIDTH 16.2 % (12.0-15.0); WHITE BLOOD COUNT 12.1 x10^3/uL (4.8-10.8)
[2024-01-02 04:41] LABS: HGB - HEMOGLOBIN 6.9 g/dL (14.0-18.0)
[2024-01-02 04:48] LABS: VANCOMYCIN,RANDOM 14.5 ug/mL
[2024-01-02 04:49] LABS: CALCIUM 8.3 mg/dL (8.5-10.3); CREATININE 0.6 mg/dL (0.6-1.3); POTASSIUM 3.6 mmol/L (3.5-4.5)
--- NOTE | 2024-01-02 09:02 | PROVIDER PROGRESS NOTE ---
Assessment/Plan - Problem List (1) Acute blood loss anemia Assessment/Plan: Worsened, Drug-induced hemolysis vs worsened stress ulcer Hb 6.2 today am (Hb 8 yesterday pm after one unit PRBC) Hemolytic anemia work up STAT: LDH, Bilirubin, Haptoglobin, Ret, Peripheral smear, richie LDH normal, bilirubin normal, reticulocytes increased properly. Haptoglobin pending Richie test equivocal, with clear plasma has no sign of hemolysis Likely patient's acute anemia is still from worsened stress ulcer consulted general surgery Dr. 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 PICC line placed 01/02/2024 with a consent from patient's son Tad (7) Positive culture findings in sputum Assessment/Plan: Doxycycline completed 14 days of treatment course today Continue on cefepime to cover Pseudomonas No sign of systemic candidiasis, continue monitoring - Current Meds Current Meds: Current Medications Generic Name Dose Route Start Last Admin Trade Name Freq PRN Reason Stop Dose Admin Albuterol/Ipratropium 3 ml 12/19/23 19:35 01/02/24 07:44 Ipratropium/Albuterol 3 Ml Neb INH 3 ml Q4HR PRN Administration Wheezing Budesonide 0.5 mg 12/19/23 19:36 01/02/24 07:44 Budesonide 0.5 Mg/2 Ml Neb INH 0.5 mg RTBID DARCIE Administration Famotidine 20 mg 12/31/23 21:00 01/01/24 22:08 Famotidine 20 Mg Tablet PO Not Given BID [facility] Fluticasone Propionate 2 sprays 12/19/23 21:00 01/01/24 22:09 Fluticasone Nasal Girard MONICA Not Given QPM [facility] Gabapentin 300 mg 12/27/23 22:00 01/02/24 06:15 Gabapentin 300 Mg Capsule PO 300 mg TID DARCIE Administration Cefepime HCl 1 gm/ Sodium 100 mls @ 200 mls/hr 12/19/23 22:00 01/02/24 06:14 Chloride IV Infused Q8H DARCIE Infusion Doxycycline Hyclate 100 mg/ 100 mls @ 100 mls/hr 12/19/23 21:00 01/01/24 22:59 Sodium Chloride IV Infused Q12H DARCIE Infusion Vancomycin HCl 1 gm/ Sodium 250 mls @ 167 mls/hr 12/27/23 09:00 12/31/23 23:00 Chloride IV Infused Q12H DARCIE Infusion Insulin Human Lispro 1 - 9 unit 12/30/23 17:00 01/01/24 21:31 Insulin Lispro 300 Unit/3 Ml Pen SUBQ Not Given 0800,1200,1700,2100 [facility] Protocol Methadone HCl 5 mg 12/31/23 14:38 01/02/24 04:30 Methadone 5 Mg Tablet PO 5 mg BID PRN Administration PAIN 5-7 Pantoprazole Sodium 40 mg 01/01/24 21:00 01/01/24 22:09 Pantoprazole 40 Mg Tablet PO Not Given BID [facility] Phenol/Menthol 2 sprays 12/19/23 20:31 12/19/23 22:29 Phenol Throat Girard 177 Ml MM 2 sprays Q2HR PRN Administration Throat Pain Sodium Chloride 10 ml 12/20/23 01:00 01/02/24 01:45 Sodium Chloride Flush 0.9% 10 Ml Syringe IVP Not Given 0100,0900,1700 [facility] Sodium Chloride 10 ml 12/19/23 17:32 01/01/24 22:13 Sodium Chloride Flush 0.9% 10 Ml Syringe IVP 10 ml PRN PRN Administration NEEDED PER PROVIDER ORDERS - Lab Result Fish Bone Diagrams: 01/02/24 09:36 01/02/24 09:36 - Diagnostic Imaging Results Diagnostic Imaging Results: Final report reviewed - Additional Planning Condition/Complexity: Unstable My Orders: My Active Orders 01/01/24 Lunch Dysphagia - Minced and Moist [DIET] 01/01/24 21:00 Pantoprazole [Protonix] 40 mg PO BID 01/02/24 DIRECT RICHIE Stat HAPTOGLOBIN [REFLAB] Stat HEMOGLOBIN AND HEMATOCRIT [HEME] Stat LDH - LACTATE DEHYDROGENASE [CHEM] Stat PATHOLOGIST SLIDE REVIEW [HEME] Stat RETIC [HEME] Stat 01/02/24 05:00 CMP [COMPREHENSIVE METABOLIC PANEL] [CHEM] Stat 01/03/24 05:00 BMP - BASIC METABOLIC PANEL [CHEM] DAILYLAB CBC [CBC - COMP BLD CT W/AUTO DIFF] [HEME] DAILYLAB 01/04/24 05:00 BMP - BASIC METABOLIC PANEL [CHEM] DAILYLAB CBC [CBC - COMP BLD CT W/AUTO DIFF] [HEME] DAILYLAB 01/05/24 05:00 BMP - BASIC METABOLIC PANEL [CHEM] DAILYLAB CBC [CBC - COMP BLD CT W/AUTO DIFF] [HEME] DAILYLAB 01/06/24 05:00 BMP - BASIC METABOLIC PANEL [CHEM] DAILYLAB CBC [CBC - COMP BLD CT W/AUTO DIFF] [HEME] DAILYLAB Consult/Specialty: Neurology Plan Discussed with:: Patient, Family (updated patient's son Tad [phone]) Time Spent: 31-60 minutes Additional Planning Notes: Patient still has severe anemia needed blood transfusion, need for further workup for acute anemia likely need EGD. Anticipate discharge in 5 to 7 days Subjective - Subjective Patient Reports: Other (Patient reports he feels the same. Follows commands knows his name and where he is at.) Nursing Reports: Other (Poor IV access,) Objective Vital Signs: Vital Signs - 24 hr 01/01/24 01/01/24 01/01/24 10:19 13:00 14:08 Temperature 36.4 C L Heart Rate 112 H 79 Heart Rate [ 127 H Monitoring electrodes] Respiratory 15 19 14 Rate Blood Pressure 135/60 H [Right Brachial artery] O2 Saturation 97 If not protocol 4 4 2 : Oxygen Flow, liters/minute 01/01/24 01/01/24 01/01/24 16:45 16:57 20:00 Temperature 36.6 C Heart Rate Heart Rate [ 119 H Monitoring electrodes] Respiratory 23 Rate Blood Pressure 93/59 L [Right Brachial artery] O2 Saturation 94 If not protocol 4.5 4 4.5 : Oxygen Flow, liters/minute 01/01/24 01/01/24 01/02/24 20:12 23:00 00:54 Temperature 38.1 C H 39.1 C H 36.7 C Heart Rate Heart Rate [ 137 H 129 H 105 H Monitoring electrodes] Respiratory 23 23 18 Rate Blood Pressure 107/69 98/53 L [Right Brachial artery] O2 Saturation 93 100 100 If not protocol 4 4 4 : Oxygen Flow, liters/minute 01/02/24 01/02/24 04:35 07:44 Temperature Heart Rate 102 H Heart Rate [ 100 Monitoring electrodes] Respiratory 20 18 Rate Blood Pressure 104/71 [Right Brachial artery] O2 Saturation 99 If not protocol 4 4.5 : Oxygen Flow, liters/minute Oxygen O2 Source [With Activity] Nasal cannula O2 Source [Without Activity] Nasal cannula O2 Source Nasal cannula Oxygen Flow Rate 3 I&O (Last 24 Hrs): Intake and Output Totals x24h 12/31/23 01/01/24 01/02/24 23:59 23:59 23:59 Intake Total 1330 799.5 600 Output Total 1525 500 Balance -195 299.5 600 General: Alert, Cooperative, Other (Cognitive impaired) HEENT: PERRLA Neck: Supple, No JVD Neuro: Alert, CN 2-12 Grossly Intact Cardiovascular: Other (Mild tachycardia with heart rate of 110) Respiratory: Chest non-tender Abdomen: No tenderness Extremities: No clubbing, No edema, Other (Right foot wound is covered with dressing) - Results Results: Laboratory Results WBC 12.1 x10^3/uL (4.8-10.8) H 01/02/24 04:18 RBC 2.50 10^6/uL (4.70-6.10) L 01/02/24 04:18 Hgb 6.9 g/dL (14.0-18.0) L* 01/02/24 04:18 Hct 25.3 % (42.0-52.0) L 01/02/24 04:18 MCV 101.2 fL (80.0-94.0) H 01/02/24 04:18 MCH 27.6 pg (27.0-31.0) 01/02/24 04:18 MCHC 27.3 g/dL (32.0-36.0) L 01/02/24 04:18 RDW 16.2 % (12.0-15.0) H 01/02/24 04:18 Plt Count 334 10^3/uL (130-450) 01/02/24 04:18 MPV 9.8 fL (7.4-11.4) 01/02/24 04:18 Neut # (Auto) 9.4 10^3/uL (1.5-6.6) H 01/02/24 04:18 Lymph # (Auto) 1.0 10^3/uL (1.5-3.5) L 01/02/24 04:18 [place] # (Auto) 1.3 10^3/uL (0.0-1.0) H 01/02/24 04:18 Eos # (Auto) 0.1 10^3/uL (0.0-0.7) 01/02/24 04:18 Baso # (Auto) 0.0 10^3/uL (0.0-0.1) 01/02/24 04:18 Absolute Nucleated RBC 0.00 x10^3/uL 01/02/24 04:18 Total Counted 100 12/20/23 04:16 Band Neuts % (Manual) 16 % (0-10) H 12/20/23 04:16 Abnorm Lymph % (Manual) 0 % 12/20/23 04:16 Myelocytes % 1 % (-0) H 12/20/23 04:16 Nucleated RBC % 0.0 /100WBC 01/02/24 04:18 Neutrophils # (Manual) 16.4 10^3/uL (1.5-6.6) H 12/20/23 04:16 Lymphocytes # (Manual) 0.9 10^3/uL (1.5-3.5) L 12/20/23 04:16 Monocytes # (Manual) 0.0 10^3/uL (0.0-1.0) 12/20/23 04:16 Eosinophils # (Manual) 0.0 10^3/uL (0-0.7) 12/20/23 04:16 Basophils # (Manual) 0.0 10^3/uL (0-0.1) 12/20/23 04:16 Differential Comment MANUAL DIFFERENTIAL 12/20/23 04:16 Manual Slide Review Indicated 12/19/23 12:45 Platelet Estimate NORMAL (130-450,000) (NORMAL) 12/20/23 04:16 RBC Morph Micro Appear 3+ HYPOCHROMASIA (NORMAL) 2+ ANISOCYTOSIS (NORMAL) 1+ POLYCHROMASIA (NORMAL) 1+ MACROCYTOSIS (NORMAL) 01/02/24 04:18 RBC Morph Micro Appear 3+ HYPOCHROMASIA (NORMAL) 2+ ANISOCYTOSIS (NORMAL) 1+ POLYCHROMASIA (NORMAL) 1+ MACROCYTOSIS (NORMAL) 01/02/24 04:18 RBC Morph Micro Appear 3+ HYPOCHROMASIA (NORMAL) 2+ ANISOCYTOSIS (NORMAL) 1+ POLYCHROMASIA (NORMAL) 1+ MACROCYTOSIS (NORMAL) 01/02/24 04:18 RBC Morph Micro Appear 3+ HYPOCHROMASIA (NORMAL) 2+ ANISOCYTOSIS (NORMAL) 1+ POLYCHROMASIA (NORMAL) 1+ MACROCYTOSIS (NORMAL) 01/02/24 04:18 D-Dimer 266.7 ng/mL (200.0-255.0) H 12/19/23 12:45 Bld Gas Analysis Time 1633 01/01/24 16:27 Sample Site LEFT RADIAL 01/01/24 16:27 ABG pH 7.46 (7.35-7.45) H 01/01/24 16:27 ABG pCO2 39 mmHg (34-45) 01/01/24 16:27 ABG pO2 55 mmHg (80-100) L 01/01/24 16:27 ABG HCO3 27.6 mmol/L (22.0-26.0) H 01/01/24 16:27 ABG Total CO2 28.9 MMOL/L (21.0-29.0) 01/01/24 16:27 ABG O2 Saturation 89 % (94-98) L 01/01/24 16:27 ABG Base Excess 3.6 mmol/L (-2.0-3.0) H 01/01/24 16:27 Moi Test POSITIVE 01/01/24 16:27 VBG pH 7.450 (7.31-7.41) H 12/29/23 08:32 VBG pCO2 41.8 mmHg (41-51) 12/26/23 14:25 VBG pO2 133.9 mmHg (25-47) H 12/26/23 14:25 VBG HCO3 30.0 mmol/L (23-28) H 12/26/23 14:25 VBG Total CO2 31.3 mmol/L (24-29) H 12/26/23 14:25 VBG O2 Saturation 98.5 % (60-80) H 12/26/23 14:25 VBG Base Excess 5.9 mmol/L (-2 - +2) H 12/26/23 14:25 Ionized Calcium 1.14 mmol/L (1.15-1.33) L 12/29/23 08:32 Respiration Rate 16 b/min 12/29/23 09:10 O2 Delivery Device NASAL CANNULA 01/01/24 16:27 O2 Liters/Min 4.00 LPM 01/01/24 16:27 Vent Mode ASSIST/CONTROL 12/29/23 09:10 FiO2 35.00 12/29/23 09:10 Tidal Volume 420 mL 12/29/23 09:10 PEEP 5 cmH2O 12/29/23 09:10 EPAP 5 cmH2O 12/20/23 11:10 IPAP 12 cmH2O 12/20/23 11:10 Sodium 140 mmol/L (135-145) 01/02/24 04:18 Potassium 3.6 mmol/L (3.5-4.5) 01/02/24 04:18 Chloride 107 mmol/L (101-111) 01/02/24 04:18 Carbon Dioxide 27 mmol/L (21-32) 01/02/24 04:18 Anion Gap 6.0 (6-13) 01/02/24 04:18 BUN 25 mg/dL (6-20) H 01/02/24 04:18 Creatinine 0.6 mg/dL (0.6-1.3) 01/02/24 04:18 Estimated GFR (MDRD) 137 (>89) 01/02/24 04:18 Glucose 96 mg/dL (74-104) 01/02/24 04:18 POC Whole Bld Glucose 83 mg/dL (70 - 100) 01/02/24 07:49 Estimat Average Glucose 143 mg/dL (70-100) H 12/20/23 04:16 Hemoglobin A1c % 6.6 % (4.27-6.07) H 12/20/23 04:16 Lactic Acid 0.7 mmol/L (0.5-2.2) 12/20/23 13:35 Calcium 8.3 mg/dL (8.5-10.3) L 01/02/24 04:18 Phosphorus 2.9 mg/dL (2.5-5.0) 01/01/24 05:34 Magnesium 1.7 mg/dL (1.7-2.3) 01/01/24 05:34 Total Bilirubin 0.4 mg/dL (0.2-1.0) 12/28/23 09:15 AST 15 IU/L (10-42) 12/28/23 09:15 ALT 32 IU/L (10-60) 12/28/23 09:15 Alkaline Phosphatase 53 IU/L (42-121) 12/28/23 09:15 Troponin I High Sens 21.7 ng/L (2.3-19.7) H* 01/01/24 05:34 C-React Prot High Sens 82.40 mg/L 12/19/23 12:45 Total Protein 5.4 g/dL (6.4-8.9) L 12/28/23 09:15 Albumin 2.9 g/dL (3.2-5.5) L 12/28/23 09:15 Globulin 2.5 g/dL (2.1-4.2) 12/28/23 09:15 Albumin/Globulin Ratio 1.2 (1.0-2.2) 12/28/23 09:15 Prealbumin 34 mg/dL (17-34) 12/27/23 04:23 Triglycerides 214 mg/dL (48-352) 12/24/23 04:53 Vitamin B12 983 pg/mL (180-914) H 12/20/23 04:16 Folate 7.2 ng/mL (5.90 - >24.8) 12/20/23 04:16 Nasal Adenovirus (PCR) NOT DETECTED 12/19/23 11:11 Nasal B. parapertussis DNA (PCR) NOT DETECTED 12/19/23 11:11 Nasal Coronavir 229E PCR NOT DETECTED 12/19/23 11:11 Nasal Coronavir HKU1 PCR NOT DETECTED 12/19/23 11:11 Nasal Coronavir NL63 PCR NOT DETECTED 12/19/23 11:11 Nasal Coronavir OC43 PCR NOT DETECTED 12/19/23 11:11 Nasal Enterovir/Rhinovir PCR NOT DETECTED 12/19/23 11:11 Nasal Influenza B PCR NOT DETECTED 12/19/23 11:11 Nasal Influenza A PCR NOT DETECTED 12/19/23 11:11 Nasal Parainfluen 1 PCR NOT DETECTED 12/19/23 11:11 Nasal Parainfluen 2 PCR NOT DETECTED 12/19/23 11:11 Nasal Parainfluen 3 PCR NOT DETECTED 12/19/23 11:11 Nasal Parainfluen 4 PCR NOT DETECTED 12/19/23 11:11 Nasal RSV (PCR) NOT DETECTED 12/19/23 11:11 Nasal Screen MRSA (PCR) NEGATIVE (NEGATIVE) 12/19/23 18:20 Nasal B.pertussis DNA PCR NOT DETECTED 12/19/23 11:11 Nasal C.pneumoniae (PCR) NOT DETECTED 12/19/23 11:11 Monica Human Metapneumo PCR NOT DETECTED 12/19/23 11:11 Nasal M.pneumoniae (PCR) NOT DETECTED 12/19/23 11:11 Nasal SARS-CoV-2 (PCR) NOT DETECTED 12/19/23 11:11 Stl Occult Blood (IFOB) POSITIVE (NEGATIVE) A 12/28/23 06:00 Last Dose Date 12-31-23 01/02/24 04:18 Last Dose Time 23:00 01/02/24 04:18 Vancomycin Trough 27.6 ug/mL H* 01/01/24 05:34 Random Vancomycin 14.5 ug/mL 01/02/24 04:18 Blood Type A POSITIVE 01/02/24 05:52 Blood Type Recheck A POSITIVE 01/02/24 04:18 Antibody Screen NEGATIVE 01/02/24 05:52 Crossmatch IS Only See Detail 01/02/24 05:52 Sepsis Event Note (H) - Evaluation Current Stage of Sepsis: Ruled out
[2024-01-02 09:45] LABS: ABSOLUTE RETICS # AUTO 0.118 10^6/uL (0.020-0.110); HCT - HEMATOCRIT 24.8 % (42.0-52.0); HGB - HEMOGLOBIN 7.2 g/dL (14.0-18.0); RED BLOOD COUNT 2.64 10^6/uL (4.70-6.10); RETICULOCYTE COUNT % (AUTO) 4.48 % (0.5-2.3)
[2024-01-02 09:58] LABS: ALBUMIN 2.8 g/dL (3.2-5.5); ALBUMIN/GLOBULIN RATIO 1.2 (1.0-2.2); BILIRUBIN,TOTAL 0.3 mg/dL (0.2-1.0); CALCIUM 8.3 mg/dL (8.5-10.3); CREATININE 0.5 mg/dL (0.6-1.3); POTASSIUM 3.4 mmol/L (3.5-4.5); TOTAL PROTEIN 5.1 g/dL (6.4-8.9)
[2024-01-02] MEDS: IPRATROPIUM/ALBUTEROL 3 ML NEB INH SCH (11:25)
[2024-01-02] MEDS: CALCIUM CARBONATE CHEW 500 MG TABLET PO SCH (13:02)
[2024-01-02] MEDS ORDERED: MIDAZOLAM 2 MG/2 ML VIAL ONE (13:57)
[2024-01-02] MEDS: POTASSIUM CHLOR 10 MEQ/100 ML 10 MEQ/100 ML BAG IV SCH (14:44)
--- NOTE | 2024-01-02 15:10 | ANESTHESIA PROCEDURE NOTE ---
Anesth Central Line Template - Central Line Central Line Preparation: Consent Obtained (phone from son with Hospitalist) Central line location: Left Basilic Central line type: PICC Single Lumen Central line catheter tip site resides: Superior vena cava (SVC) Central line aftercare: Secured (statlock), Placement confirmed (by CXR), No complications, Bundle checklist complete, Other (Trimmed at 47cm, 4 exposed.)
--- NOTE | 2024-01-02 16:06 | XRAY Report ---
PROCEDURE: Chest for Line Placement INDICATIONS: picc line placement TECHNIQUE: One view of the chest was acquired. COMPARISON: CT 12/28/2019 T4, radiograph 12/26/2023. FINDINGS: Surgical changes and devices: Left upper extremity approach PICC tip projects over the high right at rium. Lungs and pleura: Stable diffuse airspace opacities. Mediastinum: Mediastinal contours appear normal. Heart size is normal. Bones and chest wall: No suspicious bony lesions. Overlying soft tissues appear unremarkable. IMPRESSION: Left upper extremity approach PICC tip projects over the high right atrium. Reviewed by: Vishal Ochoa MD on 01/02/2024 4:05 PM PST Approved by: Vishal Ochoa MD on 01/02/2024 4:05 PM PST Station ID: [id number]
--- NOTE | 2024-01-02 18:42 | PROVIDER PROGRESS NOTE ---
Subjective - Prog Note Date Prog Note Date: 01/02/24 - Subjective Subjective: feels ok. denies breathing difficulties Objective - Vital Signs/Intake & Output Reviewed Vital Signs: Yes Vital Signs: Vital Signs x48h Temp Pulse Resp BP BP Pulse Ox O2 Flow Rate 01/02/24 16:28 36.7 C 119 H 21 126/75 100 4 01/02/24 13:56 36.4 C L 106 H 23 116/55 L 98 4 01/02/24 13:00 107 H 26 H 116/55 L 99 4 01/02/24 11:04 36.6 C 109 H 20 105/63 98 4 01/02/24 10:41 36.9 C 111 H 18 122/77 100 4 Intake & Output: Intake & Output 12/30/23 12/31/23 01/01/24 01/02/24 23:59 23:59 23:59 23:59 Intake Total 9186.672 8565 799.5 1293.333 Output Total 2305 1525 500 Balance -693.333 -195 299.5 1293.333 - Objective General Appearance: positive: No acute distress, Alert Eyes Bilateral: positive: PERRL, EOMI, No scleral icterus Respiratory: positive: No respiratory distress Abdomen: positive: Non-tender, No distention Extremities: positive: Other (right heal 5 mm ulcer. clean. no necrotic tissue or erythema left great toe slightly ducky in appearance and with few mm eschar. dry, no cellulitis) Neurologic/Psychiatric: positive: Other (awakens to voice and responds appropriately) - Lab Results Fish Bones: 01/02/24 09:36 01/02/24 09:36 Other Labs: Lab Results x24hrs 01/02/24 01/02/24 01/02/24 Range/Units 17:07 11:56 09:36 Specimen Type WBC (4.8-10.8) x10^3/uL RBC (4.70-6.10) 10^6/uL Hgb (14.0-18.0) g/dL Hct (42.0-52.0) % MCV (80.0-94.0) fL MCH (27.0-31.0) pg MCHC (32.0-36.0) g/dL RDW (12.0-15.0) % Plt Count (130-450) 10^3/uL MPV (7.4-11.4) fL Reticulocyte % (Auto) (0.5-2.3) % Neut # (Auto) (1.5-6.6) 10^3/uL Lymph # (Auto) (1.5-3.5) 10^3/uL [place] # (Auto) (0.0-1.0) 10^3/uL Eos # (Auto) (0.0-0.7) 10^3/uL Baso # (Auto) (0.0-0.1) 10^3/uL Absolute Nucleated RBC x10^3/uL Nucleated RBC % /100WBC RBC Morph Micro Appear (NORMAL) Absolute Retic (0.020-0.110) 10^6/uL Sodium (135-145) mmol/L Potassium (3.5-4.5) mmol/L Chloride (101-111) mmol/L Carbon Dioxide (21-32) mmol/L Anion Gap (6-13) BUN (6-20) mg/dL Creatinine (0.6-1.3) mg/dL Estimated GFR (MDRD) (>89) Glucose (74-104) mg/dL POC Whole Bld Glucose 92 104 H (70 - 100) mg/dL Calcium (8.5-10.3) mg/dL Total Bilirubin (0.2-1.0) mg/dL AST (10-42) IU/L ALT (10-60) IU/L Alkaline Phosphatase (42-121) IU/L Lactate Dehydrogenase (140-271) IU/L Total Protein (6.4-8.9) g/dL Albumin (3.2-5.5) g/dL Globulin (2.1-4.2) g/dL Albumin/Globulin Ratio (1.0-2.2) Last Dose Date Last Dose Time Random Vancomycin ug/mL Blood Type Blood Type Recheck Antibody Screen NOLVIA, IgG Specific POSITIVE NOLVIA, Polyspecific POSITIVE NOLVIA, C3d Specific NEGATIVE Crossmatch IS Only 01/02/24 01/02/24 01/02/24 Range/Units 09:36 09:36 09:36 Specimen Type BLOOD WBC (4.8-10.8) x10^3/uL RBC 2.64 L (4.70-6.10) 10^6/uL Hgb 7.2 L (14.0-18.0) g/dL Hct 24.8 L (42.0-52.0) % MCV (80.0-94.0) fL MCH (27.0-31.0) pg MCHC (32.0-36.0) g/dL RDW (12.0-15.0) % Plt Count (130-450) 10^3/uL MPV (7.4-11.4) fL Reticulocyte % (Auto) 4.48 H (0.5-2.3) % Neut # (Auto) (1.5-6.6) 10^3/uL Lymph # (Auto) (1.5-3.5) 10^3/uL [place] # (Auto) (0.0-1.0) 10^3/uL Eos # (Auto) (0.0-0.7) 10^3/uL Baso # (Auto) (0.0-0.1) 10^3/uL Absolute Nucleated RBC x10^3/uL Nucleated RBC % /100WBC RBC Morph Micro Appear (NORMAL) Absolute Retic 0.118 H (0.020-0.110) 10^6/uL Sodium (135-145) mmol/L Potassium (3.5-4.5) mmol/L Chloride (101-111) mmol/L Carbon Dioxide (21-32) mmol/L Anion Gap (6-13) BUN (6-20) mg/dL Creatinine (0.6-1.3) mg/dL Estimated GFR (MDRD) (>89) Glucose (74-104) mg/dL POC Whole Bld Glucose (70 - 100) mg/dL Calcium (8.5-10.3) mg/dL Total Bilirubin (0.2-1.0) mg/dL AST (10-42) IU/L ALT (10-60) IU/L Alkaline Phosphatase (42-121) IU/L Lactate Dehydrogenase 151 (140-271) IU/L Total Protein (6.4-8.9) g/dL Albumin (3.2-5.5) g/dL Globulin (2.1-4.2) g/dL Albumin/Globulin Ratio (1.0-2.2) Last Dose Date Last Dose Time Random Vancomycin ug/mL Blood Type Blood Type Recheck Antibody Screen NOLVIA, IgG Specific NOLVIA, Polyspecific NOLVIA, C3d Specific Crossmatch IS Only 01/02/24 01/02/24 01/02/24 Range/Units 09:36 07:49 05:52 Specimen Type WBC (4.8-10.8) x10^3/uL RBC (4.70-6.10) 10^6/uL Hgb (14.0-18.0) g/dL Hct (42.0-52.0) % MCV (80.0-94.0) fL MCH (27.0-31.0) pg MCHC (32.0-36.0) g/dL RDW (12.0-15.0) % Plt Count (130-450) 10^3/uL MPV (7.4-11.4) fL Reticulocyte % (Auto) (0.5-2.3) % Neut # (Auto) (1.5-6.6) 10^3/uL Lymph # (Auto) (1.5-3.5) 10^3/uL [place] # (Auto) (0.0-1.0) 10^3/uL Eos # (Auto) (0.0-0.7) 10^3/uL Baso # (Auto) (0.0-0.1) 10^3/uL Absolute Nucleated RBC x10^3/uL Nucleated RBC % /100WBC RBC Morph Micro Appear (NORMAL) Absolute Retic (0.020-0.110) 10^6/uL Sodium 140 (135-145) mmol/L Potassium 3.4 L (3.5-4.5) mmol/L Chloride 108 (101-111) mmol/L Carbon Dioxide 27 (21-32) mmol/L Anion Gap 5.0 L (6-13) BUN 22 H (6-20) mg/dL Creatinine 0.5 L (0.6-1.3) mg/dL Estimated GFR (MDRD) 170 (>89) Glucose 117 H (74-104) mg/dL POC Whole Bld Glucose 83 (70 - 100) mg/dL Calcium 8.3 L (8.5-10.3) mg/dL Total Bilirubin 0.3 (0.2-1.0) mg/dL AST 9 L (10-42) IU/L ALT 12 (10-60) IU/L Alkaline Phosphatase 36 L (42-121) IU/L Lactate Dehydrogenase (140-271) IU/L Total Protein 5.1 L (6.4-8.9) g/dL Albumin 2.8 L (3.2-5.5) g/dL Globulin 2.3 (2.1-4.2) g/dL Albumin/Globulin Ratio 1.2 (1.0-2.2) Last Dose Date Last Dose Time Random Vancomycin ug/mL Blood Type A POSITIVE Blood Type Recheck Antibody Screen NEGATIVE NOLVIA, IgG Specific NOLVIA, Polyspecific NOLVIA, C3d Specific Crossmatch IS Only See Detail 01/02/24 01/02/24 01/02/24 Range/Units 04:18 04:18 04:18 Specimen Type WBC (4.8-10.8) x10^3/uL RBC (4.70-6.10) 10^6/uL Hgb (14.0-18.0) g/dL Hct (42.0-52.0) % MCV (80.0-94.0) fL MCH (27.0-31.0) pg MCHC (32.0-36.0) g/dL RDW (12.0-15.0) % Plt Count (130-450) 10^3/uL MPV (7.4-11.4) fL Reticulocyte % (Auto) (0.5-2.3) % Neut # (Auto) (1.5-6.6) 10^3/uL Lymph # (Auto) (1.5-3.5) 10^3/uL [place] # (Auto) (0.0-1.0) 10^3/uL Eos # (Auto) (0.0-0.7) 10^3/uL Baso # (Auto) (0.0-0.1) 10^3/uL Absolute Nucleated RBC x10^3/uL Nucleated RBC % /100WBC RBC Morph Micro Appear (NORMAL) Absolute Retic (0.020-0.110) 10^6/uL Sodium 140 (135-145) mmol/L Potassium 3.6 (3.5-4.5) mmol/L Chloride 107 (101-111) mmol/L Carbon Dioxide 27 (21-32) mmol/L Anion Gap 6.0 (6-13) BUN 25 H (6-20) mg/dL Creatinine 0.6 (0.6-1.3) mg/dL Estimated GFR (MDRD) 137 (>89) Glucose 96 (74-104) mg/dL POC Whole Bld Glucose (70 - 100) mg/dL Calcium 8.3 L (8.5-10.3) mg/dL Total Bilirubin (0.2-1.0) mg/dL AST (10-42) IU/L ALT (10-60) IU/L Alkaline Phosphatase (42-121) IU/L Lactate Dehydrogenase (140-271) IU/L Total Protein (6.4-8.9) g/dL Albumin (3.2-5.5) g/dL Globulin (2.1-4.2) g/dL Albumin/Globulin Ratio (1.0-2.2) Last Dose Date 12-31-23 Last Dose Time 23:00 Random Vancomycin 14.5 ug/mL Blood Type Blood Type Recheck A POSITIVE Antibody Screen NOLVIA, IgG Specific NOLVIA, Polyspecific NOLVIA, C3d Specific Crossmatch IS Only 01/02/24 01/01/24 01/01/24 Range/Units 04:18 21:45 20:29 Specimen Type WBC 12.1 H (4.8-10.8) x10^3/uL RBC 2.50 L (4.70-6.10) 10^6/uL Hgb 6.9 L* 8.3 L (14.0-18.0) g/dL Hct 25.3 L 27.8 L (42.0-52.0) % MCV 101.2 H (80.0-94.0) fL MCH 27.6 (27.0-31.0) pg MCHC 27.3 L (32.0-36.0) g/dL RDW 16.2 H (12.0-15.0) % Plt Count 334 (130-450) 10^3/uL MPV 9.8 (7.4-11.4) fL Reticulocyte % (Auto) (0.5-2.3) % Neut # (Auto) 9.4 H (1.5-6.6) 10^3/uL Lymph # (Auto) 1.0 L (1.5-3.5) 10^3/uL [place] # (Auto) 1.3 H (0.0-1.0) 10^3/uL Eos # (Auto) 0.1 (0.0-0.7) 10^3/uL Baso # (Auto) 0.0 (0.0-0.1) 10^3/uL Absolute Nucleated RBC 0.00 x10^3/uL Nucleated RBC % 0.0 /100WBC RBC Morph Micro Appear 1+ MACROCYTOSIS (NORMAL) Absolute Retic (0.020-0.110) 10^6/uL Sodium (135-145) mmol/L Potassium (3.5-4.5) mmol/L Chloride (101-111) mmol/L Carbon Dioxide (21-32) mmol/L Anion Gap (6-13) BUN (6-20) mg/dL Creatinine (0.6-1.3) mg/dL Estimated GFR (MDRD) (>89) Glucose (74-104) mg/dL POC Whole Bld Glucose 101 H (70 - 100) mg/dL Calcium (8.5-10.3) mg/dL Total Bilirubin (0.2-1.0) mg/dL AST (10-42) IU/L ALT (10-60) IU/L Alkaline Phosphatase (42-121) IU/L Lactate Dehydrogenase (140-271) IU/L Total Protein (6.4-8.9) g/dL Albumin (3.2-5.5) g/dL Globulin (2.1-4.2) g/dL Albumin/Globulin Ratio (1.0-2.2) Last Dose Date Last Dose Time Random Vancomycin ug/mL Blood Type Blood Type Recheck Antibody Screen NOLVIA, IgG Specific NOLVIA, Polyspecific NOLVIA, C3d Specific Crossmatch IS Only Sepsis Event Note (H) - Evaluation Current Stage of Sepsis: Ruled out Assessment/Plan - Problem List (1) 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 recommend continue present care. excellent care per nursing currently with dressings and heal elevation. left great toe mildly dusky which is new from last week when previously seen. no infection. small dry eschar. amputation is not needed at this time. left foot second toe amputated previously and well healed 2 bloody bms yesterday. no bms today. tolerating soft diet. denies stomach pain. agree with adding a ppi agree with scds for dvt prophylaxis and holding heparin at this time. endoscopy would unlikely be therapeutic. he is recovering from respiratory failure and still has diffuse opacities. I believe the risk of endoscopy outweighs any potential benefit. if he continues to have gi bleeding recommend he be transferred to a facility that can offer a higher level of care
[2024-01-03] MEDS: ACETAMINOPHEN 1,000 MG/100 ML 1,000 MG/100 ML BAG IV ONE (03:27)
[2024-01-03 04:27] LABS: BASOPHILS % (AUTO) 0.2 %; EOSINOPHILS # (AUTO) 0.2 10^3/uL (0.0-0.7); EOSINOPHILS % (AUTO) 1.6 %; HCT - HEMATOCRIT 25.9 % (42.0-52.0); HGB - HEMOGLOBIN 7.9 g/dL (14.0-18.0); LYMPHOCYTES # (AUTO) 0.6 10^3/uL (1.5-3.5); LYMPHOCYTES % (AUTO) 5.6 %; MEAN CORPUSCULAR HEMOGLOBIN 28.4 pg (27.0-31.0); MEAN CORPUSCULAR HGB CONC 30.5 g/dL (32.0-36.0); MEAN CORPUSCULAR VOLUME 93.2 fL (80.0-94.0); MEAN PLATELET VOLUME 9.6 fL (7.4-11.4); MONOCYTES # (AUTO) 0.9 10^3/uL (0.0-1.0); MONOCYTES % (AUTO) 8.3 %; NEUTROPHILS % (AUTO) 83.5 %; PLT - PLATELET COUNT 310 10^3/uL (130-450); RED BLOOD COUNT 2.78 10^6/uL (4.70-6.10); RED CELL DISTRIBUTION WIDTH 15.3 % (12.0-15.0); WHITE BLOOD COUNT 10.8 x10^3/uL (4.8-10.8)
[2024-01-03 04:40] LABS: CALCIUM 8.3 mg/dL (8.5-10.3); CREATININE 0.5 mg/dL (0.6-1.3); POTASSIUM 3.5 mmol/L (3.5-4.5)
[2024-01-03] MEDS: BENZONATATE 100 MG CAPSULE PO PRN (05:49)
--- NOTE | 2024-01-03 08:49 | PROVIDER PROGRESS NOTE ---
Assessment/Plan - Problem List (1) Acute blood loss anemia Assessment/Plan: Stable, no further bleeding reported Ruled out hemolysis Hb 7.9 -continue monitoring H&H, check in pm Surgical Dr. Santos evaluated patient, does not recommend EGD or any invasive intervention due to high risk (3) Acute respiratory failure with hypoxia and hypercapnia Assessment/Plan: Improved, still need CPAP/BiPAP to maintain and support respiratory function Oxygen by nasal cannula (4) Heart failure with mid-range ejection fraction (HFmEF) Assessment/Plan: Appears stable Continue current treatment regimen (5) Type 2 [place] (myocardial infarction) Assessment/Plan: Continue medical management (6) Osteomyelitis Qualifiers: Osteomyelitis type: other chronic Osteomyelitis location: foot Laterality: right Qualified Code(s): M86.671 - Other chronic osteomyelitis, right ankle and foot Assessment/Plan: Continue on cefepime and vancomycin, PICC line was placed 01/02/2024, preparing for total 6 weeks of IV antibiotics for osteomyelitis of his right foot (7) Positive culture findings in sputum Assessment/Plan: Continue current antibiotics treatment - Current Meds Current Meds: Current Medications Generic Name Dose Route Start Last Admin Trade Name Freq PRN Reason Stop Dose Admin Albuterol/Ipratropium 3 ml 12/19/23 19:35 01/02/24 07:44 Ipratropium/Albuterol 3 Ml Neb INH 3 ml Q4HR PRN Administration Wheezing Benzonatate 100 mg 01/03/24 02:58 01/03/24 05:49 Benzonatate 100 Mg Capsule PO 100 mg TID PRN Administration Cough Budesonide 0.5 mg 12/19/23 19:36 01/02/24 20:40 Budesonide 0.5 Mg/2 Ml Neb INH 0.5 mg RTBID DARCIE Administration Calcium Carbonate/Glycine 500 mg 01/02/24 13:00 01/03/24 08:10 Calcium Carbonate Chew 500 Mg Tablet PO 500 mg BID DARCIE Administration Famotidine 20 mg 12/31/23 21:00 01/03/24 08:10 Famotidine 20 Mg Tablet PO 20 mg BID DARCIE Administration Fluticasone Propionate 2 sprays 12/19/23 21:00 01/02/24 20:25 Fluticasone Nasal [place]y MONICA 2 sprays QPM DARCIE Administration Gabapentin 300 mg 12/27/23 22:00 01/03/24 05:49 Gabapentin 300 Mg Capsule PO 300 mg TID DARCIE Administration Cefepime HCl 1 gm/ Sodium 100 mls @ 200 mls/hr 12/19/23 22:00 01/03/24 06:20 Chloride IV Infused Q8H DARCIE Infusion Vancomycin HCl 1 gm/ Sodium 250 mls @ 167 mls/hr 12/27/23 09:00 01/02/24 22: 00 Chloride IV Infused Q12H DARCIE Infusion Insulin Human Lispro 1 - 9 unit 12/30/23 17:00 01/02/24 20:33 Insulin Lispro 300 Unit/3 Ml Pen SUBQ Not Given 0800,1200,1700,2100 [facility] Protocol Methadone HCl 5 mg 12/31/23 14:38 01/02/24 20:24 Methadone 5 Mg Tablet PO 5 mg BID PRN Administration PAIN 5-7 Pantoprazole Sodium 40 mg 01/01/24 21:00 01/02/24 20:25 Pantoprazole 40 Mg Tablet PO 40 mg BID DARCIE Administration Phenol/Menthol 2 sprays 12/19/23 20:31 12/19/23 22:29 Phenol Throat Te[place]y 177 Ml MM 2 sprays Q2HR PRN Administration Throat Pain Sodium Chloride 10 ml 12/20/23 01:00 01/02/24 20:33 Sodium Chloride Flush 0.9% 10 Ml Syringe IVP 10 ml 0100,0900,1700 DARCIE Administration Sodium Chloride 10 ml 12/19/23 17:32 01/03/24 05:49 Sodium Chloride Flush 0.9% 10 Ml Syringe IVP 10 ml PRN PRN Administration NEEDED PER PROVIDER ORDERS - Lab Result Fish Bone Diagrams: 01/03/24 04:09 01/03/24 04:09 - Additional Planning Condition/Complexity: Improved My Orders: My Active Orders 01/02/24 09:36 PATHOLOGIST SLIDE REVIEW [HEME] Stat 01/02/24 10:30 PICC Line Care [RC] Q4H 01/02/24 13:00 Calcium Carbonate [Tums] 500 mg PO BID 01/04/24 05:00 BMP - BASIC METABOLIC PANEL [CHEM] DAILYLAB CBC [CBC - COMP BLD CT W/AUTO DIFF] [HEME] DAILYLAB 01/05/24 05:00 BMP - BASIC METABOLIC PANEL [CHEM] DAILYLAB CBC [CBC - COMP BLD CT W/AUTO DIFF] [HEME] DAILYLAB 01/06/24 05:00 BMP - BASIC METABOLIC PANEL [CHEM] DAILYLAB CBC [CBC - COMP BLD CT W/AUTO DIFF] [HEME] DAILYLAB Time Spent: 31-60 minutes Additional Planning Notes: Patient has new anemia, received blood transfusion, is monitoring his hemoglobin If her hemoglobin is stable, can consider patient to be discharged to short-term rehab in 2 to 3 days Subjective - Subjective Patient Reports: Other (Patient is lethargic, arousable, answer questions,) Nursing Reports: Other (Appears improved compared to last week) Objective Vital Signs: Vital Signs - 24 hr 01/02/24 01/02/24 01/02/24 09:00 09:20 10:41 Temperature 37.1 C 36.9 C Heart Rate Heart Rate [ 112 H 111 H Monitoring electrodes] Respiratory 23 18 Rate Blood Pressure [Left Brachial artery] Blood Pressure 106/64 122/77 [Right Brachial artery] O2 Saturation 100 100 If not protocol 4 4 : Oxygen Flow, liters/minute 01/02/24 01/02/24 01/02/24 11:04 13:00 13:56 Temperature 36.6 C 36.4 C L Heart Rate Heart Rate [ 109 H 107 H 106 H Monitoring electrodes] Respiratory 20 26 H 23 Rate Blood Pressure 105/63 116/55 L 116/55 L [Left Brachial artery] Blood Pressure [Right Brachial artery] O2 Saturation 98 99 98 If not protocol 4 4 4 : Oxygen Flow, liters/minute 01/02/24 01/02/24 01/02/24 16:28 20:06 20:40 Temperature 36.7 C 37.8 C Heart Rate 110 H Heart Rate [ 119 H 112 H Monitoring electrodes] Respiratory 21 21 24 Rate Blood Pressure [Left Brachial artery] Blood Pressure 126/75 109/61 [Right Brachial artery] O2 Saturation 100 100 If not protocol 4 4 4.5 : Oxygen Flow, liters/minute 01/03/24 01/03/24 01/03/24 01:00 02:43 04:18 Temperature 38.2 C H 38.7 C H 37.1 C Heart Rate Heart Rate [ 155 H 138 H 116 H Monitoring electrodes] Respiratory 37 H 21 19 Rate Blood Pressure [Left Brachial artery] Blood Pressure 169/81 H 96/61 [Right Brachial artery] O2 Saturation 96 95 100 If not protocol 6 4 4 : Oxygen Flow, liters/minute 01/03/24 01/03/24 01/03/24 04:22 06:34 07:13 Temperature 37.1 C 36.7 C Heart Rate Heart Rate [ 115 H 115 H 106 H Monitoring electrodes] Respiratory 16 28 H 11 L Rate Blood Pressure [Left Brachial artery] Blood Pressure 96/61 124/72 77/52 L [Right Brachial artery] O2 Saturation 100 100 100 If not protocol 4 4 : Oxygen Flow, liters/minute Oxygen O2 Source [With Activity] Nasal cannula O2 Source [Without Activity] Nasal cannula O2 Source CPAP Oxygen Flow Rate 3 I&O (Last 24 Hrs): Intake and Output Totals x24h 01/01/24 01/02/24 01/03/24 23:59 23:59 23:59 Intake Total 799.5 1843.333 500 Output Total 500 1 Balance 299.5 1843.333 499 General: Other (Lethargic, answers questions) HEENT: PERRLA, EOMI Neck: Supple Neuro: Disoriented, Other (Right arm weakness persistent) Cardiovascular: Other (Tachycardia 110) Respiratory: Chest non-tender Abdomen: No tenderness Extremities: No clubbing, Other (Right foot wound wrapped in dressing) - Results Results: Laboratory Results Specimen Type BLOOD 01/02/24 09:36 WBC 10.8 x10^3/uL (4.8-10.8) 01/03/24 04:09 RBC 2.78 10^6/uL (4.70-6.10) L 01/03/24 04:09 Hgb 7.9 g/dL (14.0-18.0) L 01/03/24 04:09 Hct 25.9 % (42.0-52.0) L 01/03/24 04:09 MCV 93.2 fL (80.0-94.0) 01/03/24 04:09 MCH 28.4 pg (27.0-31.0) 01/03/24 04:09 MCHC 30.5 g/dL (32.0-36.0) L 01/03/24 04:09 RDW 15.3 % (12.0-15.0) H 01/03/24 04:09 Plt Count 310 10^3/uL (130-450) 01/03/24 04:09 MPV 9.6 fL (7.4-11.4) 01/03/24 04:09 Reticulocyte % (Auto) 4.48 % (0.5-2.3) H 01/02/24 09:36 Neut # (Auto) 9.0 10^3/uL (1.5-6.6) H 01/03/24 04:09 Lymph # (Auto) 0.6 10^3/uL (1.5-3.5) L 01/03/24 04:09 [place] # (Auto) 0.9 10^3/uL (0.0-1.0) 01/03/24 04:09 Eos # (Auto) 0.2 10^3/uL (0.0-0.7) 01/03/24 04:09 Baso # (Auto) 0.0 10^3/uL (0.0-0.1) 01/03/24 04:09 Absolute Nucleated RBC 0.00 x10^3/uL 01/03/24 04:09 Total Counted 100 12/20/23 04:16 Band Neuts % (Manual) 16 % (0-10) H 12/20/23 04:16 Abnorm Lymph % (Manual) 0 % 12/20/23 04:16 Myelocytes % 1 % (-0) H 12/20/23 04:16 Nucleated RBC % 0.0 /100WBC 01/03/24 04:09 Neutrophils # (Manual) 16.4 10^3/uL (1.5-6.6) H 12/20/23 04:16 Lymphocytes # (Manual) 0.9 10^3/uL (1.5-3.5) L 12/20/23 04:16 Monocytes # (Manual) 0.0 10^3/uL (0.0-1.0) 12/20/23 04:16 Eosinophils # (Manual) 0.0 10^3/uL (0-0.7) 12/20/23 04:16 Basophils # (Manual) 0.0 10^3/uL (0-0.1) 12/20/23 04:16 Differential Comment MANUAL DIFFERENTIAL 12/20/23 04:16 Manual Slide Review Indicated 12/19/23 12:45 Platelet Estimate NORMAL (130-450,000) (NORMAL) 12/20/23 04:16 RBC Morph Micro Appear 3+ HYPOCHROMASIA (NORMAL) 2+ ANISOCYTOSIS (NORMAL) 1+ POLYCHROMASIA (NORMAL) 1+ MACROCYTOSIS (NORMAL) 01/02/24 04:18 RBC Morph Micro Appear 3+ HYPOCHROMASIA (NORMAL) 2+ ANISOCYTOSIS (NORMAL) 1+ POLYCHROMASIA (NORMAL) 1+ MACROCYTOSIS (NORMAL) 01/02/24 04:18 RBC Morph Micro Appear 3+ HYPOCHROMASIA (NORMAL) 2+ ANISOCYTOSIS (NORMAL) 1+ POLYCHROMASIA (NORMAL) 1+ MACROCYTOSIS (NORMAL) 01/02/24 04:18 RBC Morph Micro Appear 3+ HYPOCHROMASIA (NORMAL) 2+ ANISOCYTOSIS (NORMAL) 1+ POLYCHROMASIA (NORMAL) 1+ MACROCYTOSIS (NORMAL) 01/02/24 04:18 Absolute Retic 0.118 10^6/uL (0.020-0.110) H 01/02/24 09:36 Haptoglobin 284 mg/dL (29-370) 01/02/24 09:36 D-Dimer 266.7 ng/mL (200.0-255.0) H 12/19/23 12:45 Bld Gas Analysis Time 1633 01/01/24 16:27 Sample Site LEFT RADIAL 01/01/24 16:27 ABG pH 7.46 (7.35-7.45) H 01/01/24 16:27 ABG pCO2 39 mmHg (34-45) 01/01/24 16:27 ABG pO2 55 mmHg (80-100) L 01/01/24 16:27 ABG HCO3 27.6 mmol/L (22.0-26.0) H 01/01/24 16:27 ABG Total CO2 28.9 MMOL/L (21.0-29.0) 01/01/24 16:27 ABG O2 Saturation 89 % (94-98) L 01/01/24 16:27 ABG Base Excess 3.6 mmol/L (-2.0-3.0) H 01/01/24 16:27 Moi Test POSITIVE 01/01/24 16:27 VBG pH 7.450 (7.31-7.41) H 12/29/23 08:32 VBG pCO2 41.8 mmHg (41-51) 12/26/23 14:25 VBG pO2 133.9 mmHg (25-47) H 12/26/23 14:25 VBG HCO3 30.0 mmol/L (23-28) H 12/26/23 14:25 VBG Total CO2 31.3 mmol/L (24-29) H 12/26/23 14:25 VBG O2 Saturation 98.5 % (60-80) H 12/26/23 14:25 VBG Base Excess 5.9 mmol/L (-2 - +2) H 12/26/23 14:25 Ionized Calcium 1.14 mmol/L (1.15-1.33) L 12/29/23 08:32 Respiration Rate 16 b/min 12/29/23 09:10 O2 Delivery Device NASAL CANNULA 01/01/24 16:27 O2 Liters/Min 4.00 LPM 01/01/24 16:27 Vent Mode ASSIST/CONTROL 12/29/23 09:10 FiO2 35.00 12/29/23 09:10 Tidal Volume 420 mL 12/29/23 09:10 PEEP 5 cmH2O 12/29/23 09:10 EPAP 5 cmH2O 12/20/23 11:10 IPAP 12 cmH2O 12/20/23 11:10 Sodium 137 mmol/L (135-145) 01/03/24 04:09 Potassium 3.5 mmol/L (3.5-4.5) 01/03/24 04:09 Chloride 104 mmol/L (101-111) 01/03/24 04:09 Carbon Dioxide 28 mmol/L (21-32) 01/03/24 04:09 Anion Gap 5.0 (6-13) L 01/03/24 04:09 BUN 16 mg/dL (6-20) 01/03/24 04:09 Creatinine 0.5 mg/dL (0.6-1.3) L 01/03/24 04:09 Estimated GFR (MDRD) 170 (>89) 01/03/24 04:09 Glucose 87 mg/dL (74-104) 01/03/24 04:09 POC Whole Bld Glucose 96 mg/dL (70 - 100) 01/02/24 20:02 Estimat Average Glucose 143 mg/dL (70-100) H 12/20/23 04:16 Hemoglobin A1c % 6.6 % (4.27-6.07) H 12/20/23 04:16 Lactic Acid 0.7 mmol/L (0.5-2.2) 12/20/23 13:35 Calcium 8.3 mg/dL (8.5-10.3) L 01/03/24 04:09 Phosphorus 2.9 mg/dL (2.5-5.0) 01/01/24 05:34 Magnesium 1.7 mg/dL (1.7-2.3) 01/01/24 05:34 Total Bilirubin 0.3 mg/dL (0.2-1.0) 01/02/24 09:36 AST 9 IU/L (10-42) L 01/02/24 09:36 ALT 12 IU/L (10-60) 01/02/24 09:36 Alkaline Phosphatase 36 IU/L (42-121) L 01/02/24 09:36 Lactate Dehydrogenase 151 IU/L (140-271) 01/02/24 09:36 Troponin I High Sens 21.7 ng/L (2.3-19.7) H* 01/01/24 05:34 C-React Prot High Sens 82.40 mg/L 12/19/23 12:45 Total Protein 5.1 g/dL (6.4-8.9) L 01/02/24 09:36 Albumin 2.8 g/dL (3.2-5.5) L 01/02/24 09:36 Globulin 2.3 g/dL (2.1-4.2) 01/02/24 09:36 Albumin/Globulin Ratio 1.2 (1.0-2.2) 01/02/24 09:36 Prealbumin 34 mg/dL (17-34) 12/27/23 04:23 Triglycerides 214 mg/dL (48-352) 12/24/23 04:53 Vitamin B12 983 pg/mL (180-914) H 12/20/23 04:16 Folate 7.2 ng/mL (5.90 - >24.8) 12/20/23 04:16 Nasal Adenovirus (PCR) NOT DETECTED 12/19/23 11:11 Nasal B. parapertussis DNA (PCR) NOT DETECTED 12/19/23 11:11 Nasal Coronavir 229E PCR NOT DETECTED 12/19/23 11:11 Nasal Coronavir HKU1 PCR NOT DETECTED 12/19/23 11:11 Nasal Coronavir NL63 PCR NOT DETECTED 12/19/23 11:11 Nasal Coronavir OC43 PCR NOT DETECTED 12/19/23 11:11 Nasal Enterovir/Rhinovir PCR NOT DETECTED 12/19/23 11:11 Nasal Influenza B PCR NOT DETECTED 12/19/23 11:11 Nasal Influenza A PCR NOT DETECTED 12/19/23 11:11 Nasal Parainfluen 1 PCR NOT DETECTED 12/19/23 11:11 Nasal Parainfluen 2 PCR NOT DETECTED 12/19/23 11:11 Nasal Parainfluen 3 PCR NOT DETECTED 12/19/23 11:11 Nasal Parainfluen 4 PCR NOT DETECTED 12/19/23 11:11 Nasal RSV (PCR) NOT DETECTED 12/19/23 11:11 Nasal Screen MRSA (PCR) NEGATIVE (NEGATIVE) 12/19/23 18:20 Nasal B.pertussis DNA PCR NOT DETECTED 12/19/23 11:11 Nasal C.pneumoniae (PCR) NOT DETECTED 12/19/23 11:11 Monica Human Metapneumo PCR NOT DETECTED 12/19/23 11:11 Nasal M.pneumoniae (PCR) NOT DETECTED 12/19/23 11:11 Nasal SARS-CoV-2 (PCR) NOT DETECTED 12/19/23 11:11 Stl Occult Blood (IFOB) POSITIVE (NEGATIVE) A 12/28/23 06:00 Last Dose Date 12-31-23 01/02/24 04:18 Last Dose Time 23:00 01/02/24 04:18 Vancomycin Trough 27.6 ug/mL H* 01/01/24 05:34 Random Vancomycin 14.5 ug/mL 01/02/24 04:18 Blood Type A POSITIVE 01/02/24 05:52 Blood Type Recheck A POSITIVE 01/02/24 04:18 Antibody Screen NEGATIVE 01/02/24 05:52 NOLVIA, IgG Specific POSITIVE 01/02/24 09:36 NOLVIA, Polyspecific POSITIVE 01/02/24 09:36 NOLVIA, C3d Specific NEGATIVE 01/02/24 09:36 Crossmatch IS Only See Detail 01/02/24 05:52 Sepsis Event Note (H) - Evaluation Current Stage of Sepsis: Ruled out ABX Reporting Has patient been on IV antibiotics over the past 48 hours?: Yes
[2024-01-03 09:58] LABS: PATHOLOGIST SLIDE COMMENTS SEE SEPARATE REPORT
--- NOTE | 2024-01-03 10:45 | PHARMACY PROGRESS NOTE ---
- Therapy Status Vancomycin regimen day #: 16 Therapy status: Trough therapeutic Basis for treatment: Empirical Treatment indication: OSTEO - ABXS RECOMMENDED BY [facility] ID Trough goal: 400-600 Concurrent antibiotics: CEFEPIME - POP Risk Risk level for Acute Kidney Injury: High Acute Kidney Injury risk factors: Other nephrotoxic agents, Duration >7 days, Goal trough >15, Admission to ICU (PATIENT FOLLOWED BY [facility] ID WHO RECOMMENDED CURRENT ABX REGIMEN) - Monitoring and Recommendation Clinical response to treatment: Lab Results 12/19/23 12:45 BUN 24 H Creatinine 1.2 Estimated GFR (MDRD) 62 L Cultures 12/19/23 13:40 Blood - Right Hand Blood Culture - Final NO GROWTH AFTER 5 DAYS 12/19/23 13:43 Blood - Left Hand Blood Culture - Final NO GROWTH AFTER 5 DAYS Areas for additional monitoring: IV to PO when appropriate, Therapy de- escalation based on culture results, Acute Kidney Injury Pharmacy recommendation: Continue current regime (PATIENT CLEARING VANCO. X3 DOSES HELD EARLIER THIS WEEK D/T SUPRATHERAPEUTIC LEVEL. WILL CONTINUE CURRENT 1G Q12H REGIMEN. PLAN FOR RPT TROUGH EARLY NEXT WEEK AND IF ELEVATED AGAIN, WILL CONSIDER REDUCING DOSE TO 750 MG Q12H. SCR REMAINS STABLE. I/O REV'D. PATIENT REMAINS AFEBRILE. WBC WNL.)
[2024-01-03 13:44] LABS: ABG HCO3 26.7 mmol/L (22.0-26.0); ABG PCO2 38 mmHg (34-45); ABG PH 7.47 (7.35-7.45); ABG PO2 60 mmHg (80-100)
[2024-01-03 13:45] LABS: ABG BASE EXCESS 2.9 mmol/L (-2.0-3.0); ABG OXYGEN SATURATION 92 % (94-98); ABG TCO2 27.8 MMOL/L (21.0-29.0); ALLEN TEST POSITIVE
[2024-01-03] MEDS: SACCHAROMYCES BOULARDII 250 MG CAPSULE PO SCH (13:56)
[2024-01-03 15:29] LABS: HCT - HEMATOCRIT 24.5 % (42.0-52.0); HGB - HEMOGLOBIN 7.6 g/dL (14.0-18.0)
[2024-01-03] MEDS: ACETAMINOPHEN 325 MG TABLET PO PRN (15:46)
[2024-01-03] MEDS: METHADONE 5 MG TABLET PO SCH (20:05)
[2024-01-03] MEDS: GABAPENTIN 300 MG CAPSULE PO SCH (20:06)
--- NOTE | 2024-01-03 20:53 | PROVIDER PROGRESS NOTE ---
Hospitalist Cross-cover Note - Cross-Cover Note Cross-Cover Note: I was called by RN stating "Nicholas Anderson. Patient Manjit Montaño 58 y/o male. Admitted for Acute Respiratory failure, extubated last 12/29/23 pt is complaining of severe and constant lower back pain. (has hx of chronic back pain on methadone). Pt has been repositioned, gave his methadone, tylenol but none of these are effective. pt is only alert to self. i am thinking if a lidocaine patch would help? I think we are tyring to be conservative with narcotics because of altered mental status. Thank you!" Agree to avoding narcotics, have ordered lidocaine patch
[2024-01-03] MEDS: LIDOCAINE PATCH 5% TOP PRN (21:17)
[2024-01-04 04:20] LABS: BASOPHILS % (AUTO) 0.3 %; EOSINOPHILS # (AUTO) 0.2 10^3/uL (0.0-0.7); EOSINOPHILS % (AUTO) 2.8 %; HGB - HEMOGLOBIN 7.8 g/dL (14.0-18.0); LYMPHOCYTES # (AUTO) 0.7 10^3/uL (1.5-3.5); LYMPHOCYTES % (AUTO) 9.5 %; MEAN CORPUSCULAR HEMOGLOBIN 28.8 pg (27.0-31.0); MEAN CORPUSCULAR HGB CONC 31.2 g/dL (32.0-36.0); MEAN CORPUSCULAR VOLUME 92.3 fL (80.0-94.0); MEAN PLATELET VOLUME 9.2 fL (7.4-11.4); MONOCYTES # (AUTO) 0.7 10^3/uL (0.0-1.0); MONOCYTES % (AUTO) 8.9 %; NEUTROPHILS # (AUTO) 5.9 10^3/uL (1.5-6.6); NEUTROPHILS % (AUTO) 77.8 %; PLT - PLATELET COUNT 342 10^3/uL (130-450); RED BLOOD COUNT 2.71 10^6/uL (4.70-6.10); RED CELL DISTRIBUTION WIDTH 15.5 % (12.0-15.0); WHITE BLOOD COUNT 7.6 x10^3/uL (4.8-10.8)
[2024-01-04 04:38] LABS: CALCIUM 8.5 mg/dL (8.5-10.3); CREATININE 0.4 mg/dL (0.6-1.3); POTASSIUM 3.3 mmol/L (3.5-4.5)
[2024-01-04] MEDS: ONDANSETRON 4 MG/2 ML VIAL IVP STA (06:59)
--- NOTE | 2024-01-04 08:05 | PROVIDER PROGRESS NOTE ---
Assessment/Plan - Problem List (1) Hypoglycemia Assessment/Plan: Due to poor oral intake, secondary to decline eating Patient has been refusing eating, refusing oral medication, keep yelling for "leave me alone" -Hypoglycemia protocol Discussed with patient's son Tad regarding the options of tube feeding (2) Acute blood loss anemia Assessment/Plan: Hemoglobin 7.8, similar to yesterday, However patient does not take oral meds, switch pantoprazole to IV Recheck hemoglobin in p.m. to ensure no further GI blood loss (3) Right arm weakness Assessment/Plan: Ruled out stroke, his arm weakness likely from deconditioning (4) Acute respiratory failure with hypoxia and hypercapnia Assessment/Plan: Improved, stable On nasal cannula, maintained oxygen saturation well, no sign of CO2 retention (5) Heart failure with mid-range ejection fraction (HFmEF) Assessment/Plan: Appears euvolemic Continue monitoring (6) Type 2 MD (myocardial infarction) Assessment/Plan: Stable, no further chest pain complaints (7) Osteomyelitis Qualifiers: Osteomyelitis type: other chronic Osteomyelitis location: foot Laterality: right Qualified Code(s): M86.671 - Other chronic osteomyelitis, right ankle and foot Assessment/Plan: Continue on IV cefepime and vancomycin (8) Positive culture findings in sputum Assessment/Plan: On antibiotics - Current Meds Current Meds: Current Medications Generic Name Dose Route Start Last Admin Trade Name Freq PRN Reason Stop Dose Admin Acetaminophen 650 mg 01/03/24 15:37 01/03/24 19:29 Acetaminophen 325 Mg Tablet PO 650 mg Q4HR PRN Administration Pain or Fever > 38C (100.4F) Albuterol/Ipratropium 3 ml 12/19/23 19:35 01/03/24 08:41 Ipratropium/Albuterol 3 Ml Neb INH 3 ml Q4HR PRN Administration Wheezing Benzonatate 100 mg 01/03/24 02:58 01/03/24 05:49 Benzonatate 100 Mg Capsule PO 100 mg TID PRN Administration Cough Budesonide 0.5 mg 12/19/23 19:36 01/03/24 21:46 Budesonide 0.5 Mg/2 Ml Neb INH Not Given RTBID DARCIE Calcium Carbonate/Glycine 500 mg 01/02/24 13:00 01/03/24 20:05 Calcium Carbonate Chew 500 Mg Tablet PO 500 mg BID DARCIE Administration Famotidine 20 mg 12/31/23 21:00 01/03/24 20:05 Famotidine 20 Mg Tablet PO 20 mg BID DARCIE Administration Fluticasone Propionate 2 sprays 12/19/23 21:00 01/03/24 21:17 Fluticasone Nasal [place] MONICA 2 sprays QPM DARCIE Administration Gabapentin 300 mg 01/03/24 21:00 01/03/24 20:06 Gabapentin 300 Mg Capsule PO 300 mg QPM DARCIE Administration Cefepime HCl 1 gm/ Sodium 100 mls @ 200 mls/hr 12/19/23 22:00 01/04/24 06:50 Chloride IV Infused Q8H [facility] Infusion Vancomycin HCl 1 gm/ Sodium 250 mls @ 167 mls/hr 12/27/23 09:00 01/03/24 22:45 Chloride IV Infused Q12H [facility] Infusion Insulin Human Lispro 1 - 9 unit 12/30/23 17:00 01/03/24 20:31 Insulin Lispro 300 Unit/3 Ml Pen SUBQ Not Given 0800,1200,1700,2100 [facility] Protocol Lidocaine 1 patch 01/03/24 20:52 01/03/24 21:17 Lidocaine Patch 5% TOP 1 patch DAILY PRN Administration Moderate Pain (Level 4-6) Methadone HCl 5 mg 01/03/24 21:00 01/03/24 20:05 Methadone 5 Mg Tablet PO 5 mg BID DARCIE Administration Pantoprazole Sodium 40 mg 01/01/24 21:00 01/03/24 20:06 Pantoprazole 40 Mg Tablet PO 40 mg BID DARCIE Administration Phenol/Menthol 2 sprays 12/19/23 20:31 12/19/23 22:29 Phenol Throat [place] 177 Ml MM 2 sprays Q2HR PRN Administration Throat Pain Saccharomyces Boulardii 250 mg 01/03/24 10:00 01/03/24 17:35 Saccharomyces Boulardii 250 Mg Capsule PO 250 mg BIDWM DARCIE Administration Sodium Chloride 10 ml 12/20/23 01:00 01/03/24 22:53 Sodium Chloride Flush 0.9% 10 Ml Syringe IVP 10 ml 0100,0900,1700 DARCIE Administration Sodium Chloride 10 ml 12/19/23 17:32 01/03/24 05:49 Sodium Chloride Flush 0.9% 10 Ml Syringe IVP 10 ml PRN PRN Administration NEEDED PER PROVIDER ORDERS - Lab Result Fish Bone Diagrams: 01/04/24 04:15 01/04/24 04:15 - Additional Planning Condition/Complexity: Unstable My Orders: My Active Orders 01/03/24 10:00 Saccharomyces Boulardii [Florastor] 250 mg PO BIDWM 01/03/24 15:37 Acetaminophen [Tylenol] 650 mg PO Q4HR PRN 01/03/24 Dinner Dysphagia - Puree [DIET] 01/03/24 21:00 Gabapentin [Neurontin] 300 mg PO QPM Methadone [Methadone Hcl] 5 mg PO BID 01/04/24 05:00 PREALBUMIN [CHEM] Routine 01/05/24 05:00 BMP - BASIC METABOLIC PANEL [CHEM] DAILYLAB CBC [CBC - COMP BLD CT W/AUTO DIFF] [HEME] DAILYLAB 01/06/24 05:00 BMP - BASIC METABOLIC PANEL [CHEM] DAILYLAB CBC [CBC - COMP BLD CT W/AUTO DIFF] [HEME] DAILYLAB 01/08/24 05:00 VANCOMYCIN TROUGH [CHEM] Timed Plan Discussed with:: Patient, Family, Other (son) Time Spent: 31-60 minutes Additional Planning Notes: Not medically stable, continue IV antibiotics Finding solution to resolve hypoglycemia, poor oral intake poor nutrition status issue Subjective - Subjective Patient Reports: Other ("My body hurts, my body hurts inside out, let me be, do not bother me") Objective Vital Signs: Vital Signs - 24 hr 01/03/24 01/03/24 01/03/24 08:41 12:10 16:53 Temperature 98.9 C H Heart Rate 20 L Heart Rate [ 110 H 116 H Monitoring electrodes] Respiratory 20 16 23 Rate Blood Pressure 98/58 L 100/60 [Right Brachial artery] O2 Saturation 97 95 If not protocol 3 : Oxygen Flow, liters/minute 01/03/24 01/03/24 01/04/24 20:00 21:46 00:25 Temperature 36.5 C 36.7 C Heart Rate Heart Rate [ 105 H 90 Monitoring electrodes] Respiratory 24 23 Rate Blood Pressure 100/66 98/55 L [Right Brachial artery] O2 Saturation 94 96 If not protocol 4 4 : Oxygen Flow, liters/minute 01/04/24 04:31 Temperature 36.8 C Heart Rate Heart Rate [ 101 H Monitoring electrodes] Respiratory 21 Rate Blood Pressure 117/64 [Right Brachial artery] O2 Saturation 99 If not protocol 4 : Oxygen Flow, liters/minute Oxygen O2 Source [With Activity] Nasal cannula O2 Source [Without Activity] Nasal cannula O2 Source Patient supplied BIPAP Oxygen Flow Rate 3 I&O (Last 24 Hrs): Intake and Output Totals x24h 01/02/24 01/03/24 01/04/24 23:59 23:59 23:59 Intake Total 1223.138 2284 100 Output Total 1 0 Balance 6303.497 7985 100 General: Alert, Other (Not cooperative, agitated) HEENT: PERRLA, EOMI Neck: Supple Neuro: Alert, Non Focal Cardiovascular: Other (Tachycardia) Respiratory: No respiratory distress Abdomen: Soft Comments/Notes: Right foot wrapped in dressing - Results Results: Laboratory Results Specimen Type BLOOD 01/02/24 09:36 WBC 7.6 x10^3/uL (4.8-10.8) 01/04/24 04:15 RBC 2.71 10^6/uL (4.70-6.10) L 01/04/24 04:15 Hgb 7.8 g/dL (14.0-18.0) L 01/04/24 04:15 Hct 25.0 % (42.0-52.0) L 01/04/24 04:15 MCV 92.3 fL (80.0-94.0) 01/04/24 04:15 MCH 28.8 pg (27.0-31.0) 01/04/24 04:15 MCHC 31.2 g/dL (32.0-36.0) L 01/04/24 04:15 RDW 15.5 % (12.0-15.0) H 01/04/24 04:15 Plt Count 342 10^3/uL (130-450) 01/04/24 04:15 MPV 9.2 fL (7.4-11.4) 01/04/24 04:15 Reticulocyte % (Auto) 4.48 % (0.5-2.3) H 01/02/24 09:36 Neut # (Auto) 5.9 10^3/uL (1.5-6.6) 01/04/24 04:15 Lymph # (Auto) 0.7 10^3/uL (1.5-3.5) L 01/04/24 04:15 Citrus # (Auto) 0.7 10^3/uL (0.0-1.0) 01/04/24 04:15 Eos # (Auto) 0.2 10^3/uL (0.0-0.7) 01/04/24 04:15 Baso # (Auto) 0.0 10^3/uL (0.0-0.1) 01/04/24 04:15 Absolute Nucleated RBC 0.00 x10^3/uL 01/04/24 04:15 Total Counted 100 12/20/23 04:16 Band Neuts % (Manual) 16 % (0-10) H 12/20/23 04:16 Abnorm Lymph % (Manual) 0 % 12/20/23 04:16 Myelocytes % 1 % (-0) H 12/20/23 04:16 Nucleated RBC % 0.0 /100WBC 01/04/24 04:15 Neutrophils # (Manual) 16.4 10^3/uL (1.5-6.6) H 12/20/23 04:16 Lymphocytes # (Manual) 0.9 10^3/uL (1.5-3.5) L 12/20/23 04:16 Monocytes # (Manual) 0.0 10^3/uL (0.0-1.0) 12/20/23 04:16 Eosinophils # (Manual) 0.0 10^3/uL (0-0.7) 12/20/23 04:16 Basophils # (Manual) 0.0 10^3/uL (0-0.1) 12/20/23 04:16 Differential Comment MANUAL DIFFERENTIAL 12/20/23 04:16 Manual Slide Review Indicated 12/19/23 12:45 Pathologist Review SEE SEPARATE REPORT 01/02/24 09:36 Platelet Estimate NORMAL (130-450,000) (NORMAL) 12/20/23 04:16 RBC Morph Micro Appear 3+ HYPOCHROMASIA (NORMAL) 2+ ANISOCYTOSIS (NORMAL) 1+ POLYCHROMASIA (NORMAL) 1+ MACROCYTOSIS (NORMAL) 01/02/24 04:18 RBC Morph Micro Appear 3+ HYPOCHROMASIA (NORMAL) 2+ ANISOCYTOSIS (NORMAL) 1+ POLYCHROMASIA (NORMAL) 1+ MACROCYTOSIS (NORMAL) 01/02/24 04:18 RBC Morph Micro Appear 3+ HYPOCHROMASIA (NORMAL) 2+ ANISOCYTOSIS (NORMAL) 1+ POLYCHROMASIA (NORMAL) 1+ MACROCYTOSIS (NORMAL) 01/02/24 04:18 RBC Morph Micro Appear 3+ HYPOCHROMASIA (NORMAL) 2+ ANISOCYTOSIS (NORMAL) 1+ POLYCHROMASIA (NORMAL) 1+ MACROCYTOSIS (NORMAL) 01/02/24 04:18 Absolute Retic 0.118 10^6/uL (0.020-0.110) H 01/02/24 09:36 Haptoglobin 284 mg/dL (29-370) 01/02/24 09:36 D-Dimer 266.7 ng/mL (200.0-255.0) H 12/19/23 12:45 Bld Gas Analysis Time 1343 01/03/24 13:35 Sample Site LEFT RADIAL 01/03/24 13:35 ABG pH 7.47 (7.35-7.45) H 01/03/24 13:35 ABG pCO2 38 mmHg (34-45) 01/03/24 13:35 ABG pO2 60 mmHg (80-100) L 01/03/24 13:35 ABG HCO3 26.7 mmol/L (22.0-26.0) H 01/03/24 13:35 ABG Total CO2 27.8 MMOL/L (21.0-29.0) 01/03/24 13:35 ABG O2 Saturation 92 % (94-98) L 01/03/24 13:35 ABG Base Excess 2.9 mmol/L (-2.0-3.0) 01/03/24 13:35 Moi Test POSITIVE 01/03/24 13:35 VBG pH 7.450 (7.31-7.41) H 12/29/23 08:32 VBG pCO2 41.8 mmHg (41-51) 12/26/23 14:25 VBG pO2 133.9 mmHg (25-47) H 12/26/23 14:25 VBG HCO3 30.0 mmol/L (23-28) H 12/26/23 14:25 VBG Total CO2 31.3 mmol/L (24-29) H 12/26/23 14:25 VBG O2 Saturation 98.5 % (60-80) H 12/26/23 14:25 VBG Base Excess 5.9 mmol/L (-2 - +2) H 12/26/23 14:25 Ionized Calcium 1.14 mmol/L (1.15-1.33) L 12/29/23 08:32 Respiration Rate 16 b/min 12/29/23 09:10 Room Air YES 01/03/24 13:35 O2 Delivery Device C-PAP 01/03/24 13:35 O2 Liters/Min 4.00 LPM 01/01/24 16:27 Vent Mode ASSIST/CONTROL 12/29/23 09:10 FiO2 35.00 12/29/23 09:10 Tidal Volume 420 mL 12/29/23 09:10 PEEP 5 cmH2O 12/29/23 09:10 EPAP 5 cmH2O 12/20/23 11:10 IPAP 12 cmH2O 12/20/23 11:10 Sodium 138 mmol/L (135-145) 01/04/24 04:15 Potassium 3.3 mmol/L (3.5-4.5) L 01/04/24 04:15 Chloride 104 mmol/L (101-111) 01/04/24 04:15 Carbon Dioxide 28 mmol/L (21-32) 01/04/24 04:15 Anion Gap 6.0 (6-13) 01/04/24 04:15 BUN 12 mg/dL (6-20) 01/04/24 04:15 Creatinine 0.4 mg/dL (0.6-1.3) L 01/04/24 04:15 Estimated GFR (MDRD) 219 (>89) 01/04/24 04:15 Glucose 76 mg/dL (74-104) 01/04/24 04:15 POC Whole Bld Glucose 73 mg/dL (70 - 100) 01/04/24 08:03 Estimat Average Glucose 143 mg/dL (70-100) H 12/20/23 04:16 Hemoglobin A1c % 6.6 % (4.27-6.07) H 12/20/23 04:16 Lactic Acid 0.7 mmol/L (0.5-2.2) 12/20/23 13:35 Calcium 8.5 mg/dL (8.5-10.3) 01/04/24 04:15 Phosphorus 2.9 mg/dL (2.5-5.0) 01/01/24 05:34 Magnesium 1.7 mg/dL (1.7-2.3) 01/01/24 05:34 Total Bilirubin 0.3 mg/dL (0.2-1.0) 01/02/24 09:36 AST 9 IU/L (10-42) L 01/02/24 09:36 ALT 12 IU/L (10-60) 01/02/24 09:36 Alkaline Phosphatase 36 IU/L (42-121) L 01/02/24 09:36 Lactate Dehydrogenase 151 IU/L (140-271) 01/02/24 09:36 Troponin I High Sens 21.7 ng/L (2.3-19.7) H* 01/01/24 05:34 C-React Prot High Sens 82.40 mg/L 12/19/23 12:45 Total Protein 5.1 g/dL (6.4-8.9) L 01/02/24 09:36 Albumin 2.8 g/dL (3.2-5.5) L 01/02/24 09:36 Globulin 2.3 g/dL (2.1-4.2) 01/02/24 09:36 Albumin/Globulin Ratio 1.2 (1.0-2.2) 01/02/24 09:36 Prealbumin 34 mg/dL (17-34) 12/27/23 04:23 Triglycerides 214 mg/dL (48-352) 12/24/23 04:53 Vitamin B12 983 pg/mL (180-914) H 12/20/23 04:16 Folate 7.2 ng/mL (5.90 - >24.8) 12/20/23 04:16 Nasal Adenovirus (PCR) NOT DETECTED 12/19/23 11:11 Nasal B. parapertussis DNA (PCR) NOT DETECTED 12/19/23 11:11 Nasal Coronavir 229E PCR NOT DETECTED 12/19/23 11:11 Nasal Coronavir HKU1 PCR NOT DETECTED 12/19/23 11:11 Nasal Coronavir NL63 PCR NOT DETECTED 12/19/23 11:11 Nasal Coronavir OC43 PCR NOT DETECTED 12/19/23 11:11 Nasal Enterovir/Rhinovir PCR NOT DETECTED 12/19/23 11:11 Nasal Influenza B PCR NOT DETECTED 12/19/23 11:11 Nasal Influenza A PCR NOT DETECTED 12/19/23 11:11 Nasal Parainfluen 1 PCR NOT DETECTED 12/19/23 11:11 Nasal Parainfluen 2 PCR NOT DETECTED 12/19/23 11:11 Nasal Parainfluen 3 PCR NOT DETECTED 12/19/23 11:11 Nasal Parainfluen 4 PCR NOT DETECTED 12/19/23 11:11 Nasal RSV (PCR) NOT DETECTED 12/19/23 11:11 Nasal Screen MRSA (PCR) NEGATIVE (NEGATIVE) 12/19/23 18:20 Nasal B.pertussis DNA PCR NOT DETECTED 12/19/23 11:11 Nasal C.pneumoniae (PCR) NOT DETECTED 12/19/23 11:11 Monica Human Metapneumo PCR NOT DETECTED 12/19/23 11:11 Nasal M.pneumoniae (PCR) NOT DETECTED 12/19/23 11:11 Nasal SARS-CoV-2 (PCR) NOT DETECTED 12/19/23 11:11 Stl Occult Blood (IFOB) POSITIVE (NEGATIVE) A 12/28/23 06:00 Last Dose Date 12-31-23 01/02/24 04:18 Last Dose Time 23:00 01/02/24 04:18 Vancomycin Trough 27.6 ug/mL H* 01/01/24 05:34 Random Vancomycin 14.5 ug/mL 01/02/24 04:18 Blood Type A POSITIVE 01/02/24 05:52 Blood Type Recheck A POSITIVE 01/02/24 04:18 Antibody Screen NEGATIVE 01/02/24 05:52 NOLVIA, IgG Specific POSITIVE 01/02/24 09:36 NOLVIA, Polyspecific POSITIVE 01/02/24 09:36 NOLVIA, C3d Specific NEGATIVE 01/02/24 09:36 Crossmatch IS Only See Detail 01/02/24 05:52 Sepsis Event Note (H) - Evaluation Current Stage of Sepsis: Ruled out ABX Reporting Has patient been on IV antibiotics over the past 48 hours?: Yes
[2024-01-04] MEDS: POTASSIUM CHLOR 10 MEQ/100 ML 10 MEQ/100 ML BAG IV SCH (08:47)
[2024-01-04] MEDS: DEXTROSE 50% ABBOJECT 25 GM/50 ML SYRINGE IVP PRN (09:50)
[2024-01-04] MEDS ORDERED: ONDANSETRON ODT 4 MG TABLET TL PRN (14:12)
[2024-01-04] MEDS: MORPHINE 2 MG/ML CARPUJECT IVP PRN (15:36)
[2024-01-04] MEDS: PANTOPRAZOLE 40 MG VIAL IVP SCH (15:39)
[2024-01-04] MEDS: ONDANSETRON 4 MG/2 ML VIAL IVP PRN (15:45)
[2024-01-04] MEDS: D5NS W/20 MEQ KCL 1,000 ML IV STA (19:47)
[2024-01-05 04:54] LABS: BASOPHILS % (AUTO) 0.2 %; EOSINOPHILS # (AUTO) 0.2 10^3/uL (0.0-0.7); EOSINOPHILS % (AUTO) 3.6 %; HCT - HEMATOCRIT 23.7 % (42.0-52.0); HGB - HEMOGLOBIN 7.2 g/dL (14.0-18.0); LYMPHOCYTES # (AUTO) 0.7 10^3/uL (1.5-3.5); LYMPHOCYTES % (AUTO) 10.9 %; MEAN CORPUSCULAR HEMOGLOBIN 28.6 pg (27.0-31.0); MEAN CORPUSCULAR HGB CONC 30.4 g/dL (32.0-36.0); MEAN PLATELET VOLUME 9.5 fL (7.4-11.4); MONOCYTES # (AUTO) 0.6 10^3/uL (0.0-1.0); MONOCYTES % (AUTO) 10.5 %; NEUTROPHILS # (AUTO) 4.5 10^3/uL (1.5-6.6); NEUTROPHILS % (AUTO) 73.8 %; PLT - PLATELET COUNT 375 10^3/uL (130-450); RED BLOOD COUNT 2.52 10^6/uL (4.70-6.10); RED CELL DISTRIBUTION WIDTH 15.3 % (12.0-15.0); WHITE BLOOD COUNT 6.1 x10^3/uL (4.8-10.8)
[2024-01-05 05:04] LABS: CALCIUM 8.3 mg/dL (8.5-10.3); CREATININE 0.4 mg/dL (0.6-1.3); POTASSIUM 3.6 mmol/L (3.5-4.5)
--- NOTE | 2024-01-05 09:12 | PROVIDER PROGRESS NOTE ---
Assessment/Plan - Problem List (1) Hypoglycemia Assessment/Plan: No further hypoglycemia episode D5 maintenance dose Encourage oral intake Give megace and Remeron to help with appetite Had long discussion with patient's son Tad, regarding patient's nutrition status, his oral intake is very poor, which will not sustain his life. Tube feeding may have to be initiated if patient still would like to have full treatment. Tad understands, states if patient still does not eat, he would agree to start tube feeding (2) Acute blood loss anemia Assessment/Plan: unchanged Hb 7.2 today continue PPI, (switched from oral to iv due to his noncompliance to oral meds) -monitoring Hb, give transfusion if Hb,7 (3) Right arm weakness Assessment/Plan: deconditioning (4) Acute respiratory failure with hypoxia and hypercapnia Assessment/Plan: stable no hypercapnia on nasual cannula for oxygen supply (5) Heart failure with mid-range ejection fraction (HFmEF) Assessment/Plan: euvolemic (6) Type 2 IA (myocardial infarction) Assessment/Plan: stable (7) Osteomyelitis Qualifiers: Osteomyelitis type: other chronic Osteomyelitis location: foot Laterality: right Qualified Code(s): M86.671 - Other chronic osteomyelitis, right ankle and foot Assessment/Plan: on cefepime and vanco (8) Positive culture findings in sputum Assessment/Plan: on antibiotics - Current Meds Current Meds: Current Medications Generic Name Dose Route Start Last Admin Trade Name Freq PRN Reason Stop Dose Admin Acetaminophen 650 mg 01/03/24 15:37 01/03/24 19:29 Acetaminophen 325 Mg Tablet PO 650 mg Q4HR PRN Administration Pain or Fever > 38C (100.4F) Albuterol/Ipratropium 3 ml 12/19/23 19:35 01/04/24 21:59 Ipratropium/Albuterol 3 Ml Neb INH 3 ml Q4HR PRN Administration Wheezing Benzonatate 100 mg 01/03/24 02:58 01/05/24 05:56 Benzonatate 100 Mg Capsule PO 100 mg TID PRN Administration Cough Budesonide 0.5 mg 12/19/23 19:36 01/04/24 21:59 Budesonide 0.5 Mg/2 Ml Neb INH 0.5 mg RTBID DARCIE Administration Calcium Carbonate/Glycine 500 mg 01/02/24 13:00 01/05/24 08:21 Calcium Carbonate Chew 500 Mg Tablet PO 500 mg BID DARCIE Administration Dextrose 50 ml 01/04/24 08:07 01/04/24 14:04 Dextrose 50% Abboject 25 Gm/50 Ml Syringe IVP 50 ml PRN PRN Administration if BS<70 Fluticasone Propionate 2 sprays 12/19/23 21:00 01/04/24 21:08 Fluticasone Nasal [place] MONICA 2 sprays QPM DARCIE Administration Gabapentin 300 mg 01/03/24 21:00 01/04/24 21:07 Gabapentin 300 Mg Capsule PO 300 mg QPM DARCIE Administration Cefepime HCl 1 gm/ Sodium 100 mls @ 200 mls/hr 12/19/23 22:00 01/05/24 05:35 Chloride IV 20 mls/hr Q8H DARCIE Administration Vancomycin HCl 1 gm/ Sodium 250 mls @ 167 mls/hr 12/27/23 09:00 01/05/24 0 8:33 Chloride IV 167 mls/hr Q12H DARCIE Administration Insulin Human Lispro 1 - 9 unit 12/30/23 17:00 01/05/24 08:21 Insulin Lispro 300 Unit/3 Ml Pen SUBQ Not Given 0800,1200,1700,2100 [facility] Protocol Lidocaine 1 patch 01/03/24 20:52 01/04/24 21:08 Lidocaine Patch 5% TOP 1 patch DAILY PRN Administration Moderate Pain (Level 4-6) Methadone HCl 5 mg 01/03/24 21:00 01/05/24 08:21 Methadone 5 Mg Tablet PO 5 mg BID DARCIE Administration Morphine Sulfate 1 mg 01/04/24 15:30 01/04/24 15:36 Morphine 2 Mg/Ml Carpuject IVP 1 mg Q6H PRN Administration Severe Pain (Level 7-10) Ondansetron HCl 4 mg 01/04/24 14:12 01/04/24 15:45 Ondansetron 4 Mg/2 Ml Vial IVP 4 mg Q4HR PRN Administration Nausea / Vomiting Pantoprazole Sodium 40 mg 01/04/24 14:00 01/05/24 08:24 Pantoprazole 40 Mg Vial IVP 40 mg BID DARCIE Administration Phenol/Menthol 2 sprays 12/19/23 20:31 12/19/23 22:29 Phenol Throat [place] 177 Ml MM 2 sprays Q2HR PRN Administration Throat Pain Saccharomyces Boulardii 250 mg 01/03/24 10:00 01/05/24 08:21 Saccharomyces Boulardii 250 Mg Capsule PO 250 mg BIDWM DARCIE Administration Sodium Chloride 10 ml 12/20/23 01:00 01/05/24 08:24 Sodium Chloride Flush 0.9% 10 Ml Syringe IVP 10 ml 0100,0900,1700 DARCIE Administration Sodium Chloride 10 ml 12/19/23 17:32 01/05/24 08:24 Sodium Chloride Flush 0.9% 10 Ml Syringe IVP 20 ml PRN PRN Administration NEEDED PER PROVIDER ORDERS - Lab Result Fish Bone Diagrams: 01/05/24 04:20 01/05/24 04:20 - Additional Planning My Orders: My Active Orders 01/04/24 14:00 Pantoprazole [Protonix] 40 mg IVP BID 01/04/24 14:12 Ondansetron Inj [Zofran Inj] 4 mg IVP Q4HR PRN Ondansetron Odt [Zofran Odt] 4 mg TL Q4HR PRN 01/04/24 15:28 Haloperidol Inj [Haldol Inj] 0.5 mg IVP Q6H PRN 01/04/24 15:30 Morphine Inj (Carpuject) [Morphine (Carpuject)] 1 mg IVP Q6H PRN 01/06/24 05:00 BMP - BASIC METABOLIC PANEL [CHEM] DAILYLAB CBC [CBC - COMP BLD CT W/AUTO DIFF] [HEME] DAILYLAB 01/08/24 05:00 VANCOMYCIN TROUGH [CHEM] Timed Subjective - Subjective Patient Reports: Other ("I want...""I do not want..." patient behavies as a 1 years old) Objective Vital Signs: Vital Signs - 24 hr 01/04/24 01/04/24 01/04/24 13:47 16:47 19:41 Temperature 37.4 C 36.9 C 36.8 C Heart Rate Heart Rate [ 106 H 109 H 103 H Monitoring electrodes] Respiratory 23 25 H 18 Rate Blood Pressure 112/65 133/78 H 110/66 [Right Brachial artery] O2 Saturation 98 99 98 If not protocol 2 2 1 : Oxygen Flow, liters/minute 01/04/24 01/05/24 01/05/24 22:00 00:00 04:00 Temperature 36.8 C 36.7 C Heart Rate 104 H Heart Rate [ 97 105 H Monitoring electrodes] Respiratory 20 19 18 Rate Blood Pressure 138/70 H 130/71 [Right Brachial artery] O2 Saturation 99 97 If not protocol 2 1 1 : Oxygen Flow, liters/minute 01/05/24 08:00 Temperature 37.2 C Heart Rate Heart Rate [ 108 H Monitoring electrodes] Respiratory 20 Rate Blood Pressure 111/67 [Right Brachial artery] O2 Saturation 98 If not protocol 1 : Oxygen Flow, liters/minute Oxygen O2 Source [With Activity] Nasal cannula O2 Source [Without Activity] Nasal cannula O2 Source Nasal cannula Oxygen Flow Rate 3 I&O (Last 24 Hrs): Intake and Output Totals x24h 01/03/24 01/04/24 01/05/24 23:59 23:59 23:59 Intake Total 1200 1100 150 Output Total 1 500 200 Balance 1199 600 -50 General: Alert, Other (answer questions,) HEENT: PERRLA, EOMI Neck: Supple, No JVD Neuro: Alert, Disoriented Respiratory: Chest non-tender, No respiratory distress Extremities: No edema - Results Results: Laboratory Results Specimen Type BLOOD 01/02/24 09:36 WBC 6.1 x10^3/uL (4.8-10.8) 01/05/24 04:20 RBC 2.52 10^6/uL (4.70-6.10) L 01/05/24 04:20 Hgb 7.2 g/dL (14.0-18.0) L 01/05/24 04:20 Hct 23.7 % (42.0-52.0) L 01/05/24 04:20 MCV 94.0 fL (80.0-94.0) 01/05/24 04:20 MCH 28.6 pg (27.0-31.0) 01/05/24 04:20 MCHC 30.4 g/dL (32.0-36.0) L 01/05/24 04:20 RDW 15.3 % (12.0-15.0) H 01/05/24 04:20 Plt Count 375 10^3/uL (130-450) 01/05/24 04:20 MPV 9.5 fL (7.4-11.4) 01/05/24 04:20 Reticulocyte % (Auto) 4.48 % (0.5-2.3) H 01/02/24 09:36 Neut # (Auto) 4.5 10^3/uL (1.5-6.6) 01/05/24 04:20 Lymph # (Auto) 0.7 10^3/uL (1.5-3.5) L 01/05/24 04:20 Braxton # (Auto) 0.6 10^3/uL (0.0-1.0) 01/05/24 04:20 Eos # (Auto) 0.2 10^3/uL (0.0-0.7) 01/05/24 04:20 Baso # (Auto) 0.0 10^3/uL (0.0-0.1) 01/05/24 04:20 Absolute Nucleated RBC 0.00 x10^3/uL 01/05/24 04:20 Total Counted 100 12/20/23 04:16 Band Neuts % (Manual) 16 % (0-10) H 12/20/23 04:16 Abnorm Lymph % (Manual) 0 % 12/20/23 04:16 Myelocytes % 1 % (-0) H 12/20/23 04:16 Nucleated RBC % 0.0 /100WBC 01/05/24 04:20 Neutrophils # (Manual) 16.4 10^3/uL (1.5-6.6) H 12/20/23 04:16 Lymphocytes # (Manual) 0.9 10^3/uL (1.5-3.5) L 12/20/23 04:16 Monocytes # (Manual) 0.0 10^3/uL (0.0-1.0) 12/20/23 04:16 Eosinophils # (Manual) 0.0 10^3/uL (0-0.7) 12/20/23 04:16 Basophils # (Manual) 0.0 10^3/uL (0-0.1) 12/20/23 04:16 Differential Comment MANUAL DIFFERENTIAL 12/20/23 04:16 Manual Slide Review Indicated 12/19/23 12:45 Pathologist Review SEE SEPARATE REPORT 01/02/24 09:36 Platelet Estimate NORMAL (130-450,000) (NORMAL) 12/20/23 04:16 RBC Morph Micro Appear 3+ HYPOCHROMASIA (NORMAL) 2+ ANISOCYTOSIS (NORMAL) 1+ POLYCHROMASIA (NORMAL) 1+ MACROCYTOSIS (NORMAL) 01/02/24 04:18 RBC Morph Micro Appear 3+ HYPOCHROMASIA (NORMAL) 2+ ANISOCYTOSIS (NORMAL) 1+ POLYCHROMASIA (NORMAL) 1+ MACROCYTOSIS (NORMAL) 01/02/24 04:18 RBC Morph Micro Appear 3+ HYPOCHROMASIA (NORMAL) 2+ ANISOCYTOSIS (NORMAL) 1+ POLYCHROMASIA (NORMAL) 1+ MACROCYTOSIS (NORMAL) 01/02/24 04:18 RBC Morph Micro Appear 3+ HYPOCHROMASIA (NORMAL) 2+ ANISOCYTOSIS (NORMAL) 1+ POLYCHROMASIA (NORMAL) 1+ MACROCYTOSIS (NORMAL) 01/02/24 04:18 Absolute Retic 0.118 10^6/uL (0.020-0.110) H 01/02/24 09:36 Haptoglobin 284 mg/dL (29-370) 01/02/24 09:36 D-Dimer 266.7 ng/mL (200.0-255.0) H 12/19/23 12:45 Bld Gas Analysis Time 1343 01/03/24 13:35 Sample Site LEFT RADIAL 01/03/24 13:35 ABG pH 7.47 (7.35-7.45) H 01/03/24 13:35 ABG pCO2 38 mmHg (34-45) 01/03/24 13:35 ABG pO2 60 mmHg (80-100) L 01/03/24 13:35 ABG HCO3 26.7 mmol/L (22.0-26.0) H 01/03/24 13:35 ABG Total CO2 27.8 MMOL/L (21.0-29.0) 01/03/24 13:35 ABG O2 Saturation 92 % (94-98) L 01/03/24 13:35 ABG Base Excess 2.9 mmol/L (-2.0-3.0) 01/03/24 13:35 Moi Test POSITIVE 01/03/24 13:35 VBG pH 7.450 (7.31-7.41) H 12/29/23 08:32 VBG pCO2 41.8 mmHg (41-51) 12/26/23 14:25 VBG pO2 133.9 mmHg (25-47) H 12/26/23 14:25 VBG HCO3 30.0 mmol/L (23-28) H 12/26/23 14:25 VBG Total CO2 31.3 mmol/L (24-29) H 12/26/23 14:25 VBG O2 Saturation 98.5 % (60-80) H 12/26/23 14:25 VBG Base Excess 5.9 mmol/L (-2 - +2) H 12/26/23 14:25 Ionized Calcium 1.14 mmol/L (1.15-1.33) L 12/29/23 08:32 Respiration Rate 16 b/min 12/29/23 09:10 Room Air YES 01/03/24 13:35 O2 Delivery Device C-PAP 01/03/24 13:35 O2 Liters/Min 4.00 LPM 01/01/24 16:27 Vent Mode ASSIST/CONTROL 12/29/23 09:10 FiO2 35.00 12/29/23 09:10 Tidal Volume 420 mL 12/29/23 09:10 PEEP 5 cmH2O 12/29/23 09:10 EPAP 5 cmH2O 12/20/23 11:10 IPAP 12 cmH2O 12/20/23 11:10 Sodium 139 mmol/L (135-145) 01/05/24 04:20 Potassium 3.6 mmol/L (3.5-4.5) 01/05/24 04:20 Chloride 105 mmol/L (101-111) 01/05/24 04:20 Carbon Dioxide 28 mmol/L (21-32) 01/05/24 04:20 Anion Gap 6.0 (6-13) 01/05/24 04:20 BUN 6 mg/dL (6-20) 01/05/24 04:20 Creatinine 0.4 mg/dL (0.6-1.3) L 01/05/24 04:20 Estimated GFR (MDRD) 219 (>89) 01/05/24 04:20 Glucose 95 mg/dL (74-104) 01/05/24 04:20 POC Whole Bld Glucose 87 mg/dL (70 - 100) 01/05/24 07:38 Estimat Average Glucose 143 mg/dL (70-100) H 12/20/23 04:16 Hemoglobin A1c % 6.6 % (4.27-6.07) H 12/20/23 04:16 Lactic Acid 0.7 mmol/L (0.5-2.2) 12/20/23 13:35 Calcium 8.3 mg/dL (8.5-10.3) L 01/05/24 04:20 Phosphorus 2.9 mg/dL (2.5-5.0) 01/01/24 05:34 Magnesium 1.7 mg/dL (1.7-2.3) 01/01/24 05:34 Total Bilirubin 0.3 mg/dL (0.2-1.0) 01/02/24 09:36 AST 9 IU/L (10-42) L 01/02/24 09:36 ALT 12 IU/L (10-60) 01/02/24 09:36 Alkaline Phosphatase 36 IU/L (42-121) L 01/02/24 09:36 Lactate Dehydrogenase 151 IU/L (140-271) 01/02/24 09:36 Troponin I High Sens 21.7 ng/L (2.3-19.7) H* 01/01/24 05:34 C-React Prot High Sens 82.40 mg/L 12/19/23 12:45 Total Protein 5.1 g/dL (6.4-8.9) L 01/02/24 09:36 Albumin 2.8 g/dL (3.2-5.5) L 01/02/24 09:36 Globulin 2.3 g/dL (2.1-4.2) 01/02/24 09:36 Albumin/Globulin Ratio 1.2 (1.0-2.2) 01/02/24 09:36 Prealbumin 14 mg/dL (17-34) L 01/04/24 04:15 Triglycerides 214 mg/dL (48-352) 12/24/23 04:53 Vitamin B12 983 pg/mL (180-914) H 12/20/23 04:16 Folate 7.2 ng/mL (5.90 - >24.8) 12/20/23 04:16 Nasal Adenovirus (PCR) NOT DETECTED 12/19/23 11:11 Nasal B. parapertussis DNA (PCR) NOT DETECTED 12/19/23 11:11 Nasal Coronavir 229E PCR NOT DETECTED 12/19/23 11:11 Nasal Coronavir HKU1 PCR NOT DETECTED 12/19/23 11:11 Nasal Coronavir NL63 PCR NOT DETECTED 12/19/23 11:11 Nasal Coronavir OC43 PCR NOT DETECTED 12/19/23 11:11 Nasal Enterovir/Rhinovir PCR NOT DETECTED 12/19/23 11:11 Nasal Influenza B PCR NOT DETECTED 12/19/23 11:11 Nasal Influenza A PCR NOT DETECTED 12/19/23 11:11 Nasal Parainfluen 1 PCR NOT DETECTED 12/19/23 11:11 Nasal Parainfluen 2 PCR NOT DETECTED 12/19/23 11:11 Nasal Parainfluen 3 PCR NOT DETECTED 12/19/23 11:11 Nasal Parainfluen 4 PCR NOT DETECTED 12/19/23 11:11 Nasal RSV (PCR) NOT DETECTED 12/19/23 11:11 Nasal Screen MRSA (PCR) NEGATIVE (NEGATIVE) 12/19/23 18:20 Nasal B.pertussis DNA PCR NOT DETECTED 12/19/23 11:11 Nasal C.pneumoniae (PCR) NOT DETECTED 12/19/23 11:11 Monica Human Metapneumo PCR NOT DETECTED 12/19/23 11:11 Nasal M.pneumoniae (PCR) NOT DETECTED 12/19/23 11:11 Nasal SARS-CoV-2 (PCR) NOT DETECTED 12/19/23 11:11 Stl Occult Blood (IFOB) POSITIVE (NEGATIVE) A 12/28/23 06:00 Last Dose Date 12-31-23 01/02/24 04:18 Last Dose Time 23:00 01/02/24 04:18 Vancomycin Trough 27.6 ug/mL H* 01/01/24 05:34 Random Vancomycin 14.5 ug/mL 01/02/24 04:18 Blood Type A POSITIVE 01/02/24 05:52 Blood Type Recheck A POSITIVE 01/02/24 04:18 Antibody Screen NEGATIVE 01/02/24 05:52 NOLVIA, IgG Specific POSITIVE 01/02/24 09:36 NOLVIA, Polyspecific POSITIVE 01/02/24 09:36 NOLVIA, C3d Specific NEGATIVE 01/02/24 09:36 Crossmatch IS Only See Detail 01/02/24 05:52 Sepsis Event Note (H) - Evaluation Current Stage of Sepsis: Ruled out
[2024-01-05] MEDS: HALOPERIDOL 5 MG/ML VIAL IVP PRN (11:52)
[2024-01-05] MEDS: D5NS W/20 MEQ KCL 1,000 ML IV STA (11:55)
[2024-01-05] MEDS: MIRTAZAPINE 15 MG TABLET PO SCH (21:07)
[2024-01-05] MEDS: CEFEPIME 1 GM in SODIUM CHLORIDE 0.9% MINIBAG 100 ML IV SCH (23:06)
[2024-01-05] MEDS: SUCRALFATE 1 GM/10 ML UDC PO SCH (23:06)
[2024-01-06 09:34] LABS: BASOPHILS # (AUTO) 0.1 10^3/uL (0.0-0.1); BASOPHILS % (AUTO) 0.8 %; EOSINOPHILS # (AUTO) 0.3 10^3/uL (0.0-0.7); EOSINOPHILS % (AUTO) 4.1 %; HCT - HEMATOCRIT 27.3 % (42.0-52.0); LYMPHOCYTES # (AUTO) 0.8 10^3/uL (1.5-3.5); LYMPHOCYTES % (AUTO) 11.9 %; MEAN CORPUSCULAR HEMOGLOBIN 28.8 pg (27.0-31.0); MEAN CORPUSCULAR HGB CONC 29.3 g/dL (32.0-36.0); MEAN CORPUSCULAR VOLUME 98.2 fL (80.0-94.0); MONOCYTES # (AUTO) 0.6 10^3/uL (0.0-1.0); NEUTROPHILS # (AUTO) 4.9 10^3/uL (1.5-6.6); NEUTROPHILS % (AUTO) 73.3 %; PLT - PLATELET COUNT 401 10^3/uL (130-450); RED BLOOD COUNT 2.78 10^6/uL (4.70-6.10); RED CELL DISTRIBUTION WIDTH 15.2 % (12.0-15.0); WHITE BLOOD COUNT 6.6 x10^3/uL (4.8-10.8)
[2024-01-06 09:46] LABS: CALCIUM 8.7 mg/dL (8.5-10.3); CREATININE 0.5 mg/dL (0.6-1.3); POTASSIUM 3.6 mmol/L (3.5-4.5)
--- NOTE | 2024-01-06 09:58 | PROVIDER PROGRESS NOTE ---
Assessment/Plan - Problem List (1) Hypoglycemia Assessment/Plan: No further hypoglycemia events today Encourage patient oral intake (2) Acute blood loss anemia Assessment/Plan: Today patient had blood clots in his bowel movement Rechecked hemoglobin 8.6 Will recheck hemoglobin tomorrow in the morning Continue current Protonix treatment (3) Right arm weakness Assessment/Plan: It is about the same, left arm appears stronger than before Follow PT OT (4) Acute respiratory failure with hypoxia and hypercapnia Assessment/Plan: On nasal cannula, appears stable as before Continue current treatment plan (5) Heart failure with mid-range ejection fraction (HFmEF) Assessment/Plan: Appears euvolemic (6) Type 2 [place] (myocardial infarction) Assessment/Plan: Has gone through acute phase No new treatment now (7) Osteomyelitis Qualifiers: Osteomyelitis type: other chronic Osteomyelitis location: foot Laterality: right Qualified Code(s): M86.671 - Other chronic osteomyelitis, right ankle and foot Assessment/Plan: Continue on cefepime and vancomycin (8) Positive culture findings in sputum Assessment/Plan: On antibiotics - Current Meds Current Meds: Current Medications Generic Name Dose Route Start Last Admin Trade Name Freq PRN Reason Stop Dose Admin Acetaminophen 650 mg 01/03/24 15:37 01/06/24 00:00 Acetaminophen 325 Mg Tablet PO 650 mg Q4HR PRN Administration Pain or Fever > 38C (100.4F) Albuterol/Ipratropium 3 ml 12/19/23 19:35 01/04/24 21:59 Ipratropium/Albuterol 3 Ml Neb INH 3 ml Q4HR PRN Administration Wheezing Benzonatate 100 mg 01/03/24 02:58 01/06/24 00:05 Benzonatate 100 Mg Capsule PO 100 mg TID PRN Administration Cough Budesonide 0.5 mg 12/19/23 19:36 01/05/24 17:53 Budesonide 0.5 Mg/2 Ml Neb INH Not Given RTBID DARCIE Calcium Carbonate/Glycine 500 mg 01/02/24 13:00 01/05/24 21:07 Calcium Carbonate Chew 500 Mg Tablet PO 500 mg BID DARCIE Administration Dextrose 50 ml 01/04/24 08:07 01/04/24 14:04 Dextrose 50% Abboject 25 Gm/50 Ml Syringe IVP 50 ml PRN PRN Administration if BS<70 Fluticasone Propionate 2 sprays 12/19/23 21:00 01/05/24 21:23 Fluticasone Nasal Vanderbilt MONICA 2 sprays QPM DARCIE Administration Gabapentin 300 mg 01/03/24 21:00 01/05/24 21:07 Gabapentin 300 Mg Capsule PO 300 mg QPM DARCIE Administration Haloperidol 0.5 mg 01/04/24 15:28 01/06/24 00:31 Haloperidol 5 Mg/Ml Vial IVP 0.5 mg Q6H PRN Administration Agitation Vancomycin HCl 1 gm/ Sodium 250 mls @ 167 mls/hr 12/27/23 09:00 01/05/24 22:57 Chloride IV Infused Q12H DARCIE Infusion Cefepime HCl 1 gm/ Sodium 100 mls @ 200 mls/hr 01/05/24 23:00 01/06/24 07:35 Chloride IV Infused Q8H [facility] Infusion Insulin Human Lispro 1 - 9 unit 12/30/23 17:00 01/05/24 21:09 Insulin Lispro 300 Unit/3 Ml Pen SUBQ Not Given 0800,1200,1700,2100 [facility] Protocol Lidocaine 1 patch 01/03/24 20:52 01/06/24 08:02 Lidocaine Patch 5% TOP 1 patch DAILY PRN Administration Moderate Pain (Level 4-6) Methadone HCl 5 mg 01/03/24 21:00 01/05/24 21:07 Methadone 5 Mg Tablet PO 5 mg BID DARCIE Administration Mirtazapine 15 mg 01/05/24 21:00 01/05/24 21:07 Mirtazapine 15 Mg Tablet PO 15 mg QPM DARCIE Administration Morphine Sulfate 1 mg 01/04/24 15:30 01/06/24 03:55 Morphine 2 Mg/Ml Carpuject IVP 1 mg Q6H PRN Administration Severe Pain (Level 7-10) Ondansetron HCl 4 mg 01/04/24 14:12 01/05/24 15:57 Ondansetron 4 Mg/2 Ml Vial IVP 4 mg Q4HR PRN Administration Nausea / Vomiting Pantoprazole Sodium 40 mg 01/04/24 14:00 01/05/24 21:08 Pantoprazole 40 Mg Vial IVP 40 mg BID DARCIE Administration Phenol/Menthol 2 sprays 12/19/23 20:31 12/19/23 22:29 Phenol Throat Vanderbilt 177 Ml MM 2 sprays Q2HR PRN Administration Throat Pain Saccharomyces Boulardii 250 mg 01/03/24 10:00 01/05/24 17:18 Saccharomyces Boulardii 250 Mg Capsule PO 250 mg BIDWM DARCIE Administration Sodium Chloride 10 ml 12/20/23 01:00 01/06/24 01:18 Sodium Chloride Flush 0.9% 10 Ml Syringe IVP Not Given 0100,0900,1700 DARCIE Sodium Chloride 10 ml 12/19/23 17:32 01/05/24 09:25 Sodium Chloride Flush 0.9% 10 Ml Syringe IVP 10 ml PRN PRN Administration NEEDED PER PROVIDER ORDERS Sucralfate 1 gm 01/05/24 22:00 01/06/24 06:36 Sucralfate 1 Gm/10 Ml Udc PO 1 gm 0700,1100,1600,2200 DARCIE Administration - Lab Result Lab results reviewed: Yes Fish Bone Diagrams: 01/06/24 19:14 01/06/24 09:24 - Additional Planning Condition/Complexity: Stable My Orders: My Active Orders 01/05/24 21:00 Mirtazapine [Remeron] 15 mg PO QPM 01/05/24 22:00 Sucralfate [Carafate] 1 gm PO 0700,1100,1600,2200 01/06/24 09:00 Megestrol [Megace] 400 mg PO DAILY 01/08/24 05:00 VANCOMYCIN TROUGH [CHEM] Timed Time Spent: 15-30 minutes (Stable however patient has poor oral intake the nutrition status will be a big barrier for discharge) Subjective - Subjective Patient Reports: Other (Patient always reports he feels fine) Objective Vital Signs: Vital Signs - 24 hr 01/05/24 01/05/24 01/05/24 13:00 16:54 20:19 Temperature 37.2 C 36.9 C Heart Rate [ Brachial] Heart Rate [ 102 H 111 H 110 H Monitoring electrodes] Respiratory 15 24 16 Rate Blood Pressure 116/58 L 121/78 146/83 H [Right Brachial artery] O2 Saturation 98 97 91 L If not protocol 1 : Oxygen Flow, liters/minute 01/06/24 01/06/24 01/06/24 00:27 00:28 01:31 Temperature 38.6 C H 37.1 C Heart Rate [ 134 H 123 H Brachial] Heart Rate [ Monitoring electrodes] Respiratory 20 20 Rate Blood Pressure 134/90 H [Right Brachial artery] O2 Saturation 85 L 91 L 92 If not protocol 2 5 : Oxygen Flow, liters/minute 01/06/24 01/06/24 01/06/24 04:19 06:10 08:09 Temperature 36.7 C 37.2 C Heart Rate [ 120 H 110 H 108 H Brachial] Heart Rate [ Monitoring electrodes] Respiratory 20 16 18 Rate Blood Pressure 128/75 124/75 [Right Brachial artery] O2 Saturation 91 L 98 99 If not protocol 2 2 2 : Oxygen Flow, liters/minute Oxygen O2 Source [With Activity] Nasal cannula O2 Source [Without Activity] Nasal cannula O2 Source Nasal cannula Oxygen Flow Rate 3 I&O (Last 24 Hrs): Intake and Output Totals x24h 01/04/24 01/05/24 01/07/24 23:59 23:59 00:59 Intake Total 1100 2050 100 Output Total 500 850 Balance 600 1200 100 General: Alert, Other (Anxious, frustrated most of the time) HEENT: PERRLA, EOMI Neuro: Alert, Other (Right arm weakness) Cardiovascular: Regular rate Respiratory: No respiratory distress Extremities: No edema - Results Results: Laboratory Results Specimen Type BLOOD 01/02/24 09:36 WBC 6.6 x10^3/uL (4.8-10.8) 01/06/24 09:24 RBC 2.78 10^6/uL (4.70-6.10) L 01/06/24 09:24 Hgb 8.0 g/dL (14.0-18.0) L 01/06/24 09:24 Hct 27.3 % (42.0-52.0) L 01/06/24 09:24 MCV 98.2 fL (80.0-94.0) H 01/06/24 09:24 MCH 28.8 pg (27.0-31.0) 01/06/24 09:24 MCHC 29.3 g/dL (32.0-36.0) L 01/06/24 09:24 RDW 15.2 % (12.0-15.0) H 01/06/24 09:24 Plt Count 401 10^3/uL (130-450) 01/06/24 09:24 MPV 9.0 fL (7.4-11.4) 01/06/24 09:24 Reticulocyte % (Auto) 4.48 % (0.5-2.3) H 01/02/24 09:36 Neut # (Auto) 4.9 10^3/uL (1.5-6.6) 01/06/24 09:24 Lymph # (Auto) 0.8 10^3/uL (1.5-3.5) L 01/06/24 09:24 Wilkinson # (Auto) 0.6 10^3/uL (0.0-1.0) 01/06/24 09:24 Eos # (Auto) 0.3 10^3/uL (0.0-0.7) 01/06/24 09:24 Baso # (Auto) 0.1 10^3/uL (0.0-0.1) 01/06/24 09:24 Absolute Nucleated RBC 0.00 x10^3/uL 01/06/24 09:24 Total Counted 100 12/20/23 04:16 Band Neuts % (Manual) 16 % (0-10) H 12/20/23 04:16 Abnorm Lymph % (Manual) 0 % 12/20/23 04:16 Myelocytes % 1 % (-0) H 12/20/23 04:16 Nucleated RBC % 0.0 /100WBC 01/06/24 09:24 Neutrophils # (Manual) 16.4 10^3/uL (1.5-6.6) H 12/20/23 04:16 Lymphocytes # (Manual) 0.9 10^3/uL (1.5-3.5) L 12/20/23 04:16 Monocytes # (Manual) 0.0 10^3/uL (0.0-1.0) 12/20/23 04:16 Eosinophils # (Manual) 0.0 10^3/uL (0-0.7) 12/20/23 04:16 Basophils # (Manual) 0.0 10^3/uL (0-0.1) 12/20/23 04:16 Differential Comment MANUAL DIFFERENTIAL 12/20/23 04:16 Manual Slide Review Indicated 12/19/23 12:45 Pathologist Review SEE SEPARATE REPORT 01/02/24 09:36 Platelet Estimate NORMAL (130-450,000) (NORMAL) 12/20/23 04:16 RBC Morph Micro Appear 3+ HYPOCHROMASIA (NORMAL) 2+ ANISOCYTOSIS (NORMAL) 1+ POLYCHROMASIA (NORMAL) 1+ MACROCYTOSIS (NORMAL) 01/02/24 04:18 RBC Morph Micro Appear 3+ HYPOCHROMASIA (NORMAL) 2+ ANISOCYTOSIS (NORMAL) 1+ POLYCHROMASIA (NORMAL) 1+ MACROCYTOSIS (NORMAL) 01/02/24 04:18 RBC Morph Micro Appear 3+ HYPOCHROMASIA (NORMAL) 2+ ANISOCYTOSIS (NORMAL) 1+ POLYCHROMASIA (NORMAL) 1+ MACROCYTOSIS (NORMAL) 01/02/24 04:18 RBC Morph Micro Appear 3+ HYPOCHROMASIA (NORMAL) 2+ ANISOCYTOSIS (NORMAL) 1+ POLYCHROMASIA (NORMAL) 1+ MACROCYTOSIS (NORMAL) 01/02/24 04:18 Absolute Retic 0.118 10^6/uL (0.020-0.110) H 01/02/24 09:36 Haptoglobin 284 mg/dL (29-370) 01/02/24 09:36 D-Dimer 266.7 ng/mL (200.0-255.0) H 12/19/23 12:45 Bld Gas Analysis Time 1343 01/03/24 13:35 Sample Site LEFT RADIAL 01/03/24 13:35 ABG pH 7.47 (7.35-7.45) H 01/03/24 13:35 ABG pCO2 38 mmHg (34-45) 01/03/24 13:35 ABG pO2 60 mmHg (80-100) L 01/03/24 13:35 ABG HCO3 26.7 mmol/L (22.0-26.0) H 01/03/24 13:35 ABG Total CO2 27.8 MMOL/L (21.0-29.0) 01/03/24 13:35 ABG O2 Saturation 92 % (94-98) L 01/03/24 13:35 ABG Base Excess 2.9 mmol/L (-2.0-3.0) 01/03/24 13:35 Moi Test POSITIVE 01/03/24 13:35 VBG pH 7.450 (7.31-7.41) H 12/29/23 08:32 VBG pCO2 41.8 mmHg (41-51) 12/26/23 14:25 VBG pO2 133.9 mmHg (25-47) H 12/26/23 14:25 VBG HCO3 30.0 mmol/L (23-28) H 12/26/23 14:25 VBG Total CO2 31.3 mmol/L (24-29) H 12/26/23 14:25 VBG O2 Saturation 98.5 % (60-80) H 12/26/23 14:25 VBG Base Excess 5.9 mmol/L (-2 - +2) H 12/26/23 14:25 Ionized Calcium 1.14 mmol/L (1.15-1.33) L 12/29/23 08:32 Respiration Rate 16 b/min 12/29/23 09:10 Room Air YES 01/03/24 13:35 O2 Delivery Device C-PAP 01/03/24 13:35 O2 Liters/Min 4.00 LPM 01/01/24 16:27 Vent Mode ASSIST/CONTROL 12/29/23 09:10 FiO2 35.00 12/29/23 09:10 Tidal Volume 420 mL 12/29/23 09:10 PEEP 5 cmH2O 12/29/23 09:10 EPAP 5 cmH2O 12/20/23 11:10 IPAP 12 cmH2O 12/20/23 11:10 Sodium 140 mmol/L (135-145) 01/06/24 09:24 Potassium 3.6 mmol/L (3.5-4.5) 01/06/24 09:24 Chloride 105 mmol/L (101-111) 01/06/24 09:24 Carbon Dioxide 29 mmol/L (21-32) 01/06/24 09:24 Anion Gap 6.0 (6-13) 01/06/24 09:24 BUN 10 mg/dL (6-20) 01/06/24 09:24 Creatinine 0.5 mg/dL (0.6-1.3) L 01/06/24 09:24 Estimated GFR (MDRD) 170 (>89) 01/06/24 09:24 Glucose 86 mg/dL (74-104) 01/06/24 09:24 POC Whole Bld Glucose 82 mg/dL (70 - 100) 01/06/24 08:11 Estimat Average Glucose 143 mg/dL (70-100) H 12/20/23 04:16 Hemoglobin A1c % 6.6 % (4.27-6.07) H 12/20/23 04:16 Lactic Acid 0.7 mmol/L (0.5-2.2) 12/20/23 13:35 Calcium 8.7 mg/dL (8.5-10.3) 01/06/24 09:24 Phosphorus 2.9 mg/dL (2.5-5.0) 01/01/24 05:34 Magnesium 1.7 mg/dL (1.7-2.3) 01/01/24 05:34 Total Bilirubin 0.3 mg/dL (0.2-1.0) 01/02/24 09:36 AST 9 IU/L (10-42) L 01/02/24 09:36 ALT 12 IU/L (10-60) 01/02/24 09:36 Alkaline Phosphatase 36 IU/L (42-121) L 01/02/24 09:36 Lactate Dehydrogenase 151 IU/L (140-271) 01/02/24 09:36 Troponin I High Sens 21.7 ng/L (2.3-19.7) H* 01/01/24 05:34 C-React Prot High Sens 82.40 mg/L 12/19/23 12:45 Total Protein 5.1 g/dL (6.4-8.9) L 01/02/24 09:36 Albumin 2.8 g/dL (3.2-5.5) L 01/02/24 09:36 Globulin 2.3 g/dL (2.1-4.2) 01/02/24 09:36 Albumin/Globulin Ratio 1.2 (1.0-2.2) 01/02/24 09:36 Prealbumin 14 mg/dL (17-34) L 01/04/24 04:15 Triglycerides 214 mg/dL (48-352) 12/24/23 04:53 Vitamin B12 983 pg/mL (180-914) H 12/20/23 04:16 Folate 7.2 ng/mL (5.90 - >24.8) 12/20/23 04:16 Nasal Adenovirus (PCR) NOT DETECTED 12/19/23 11:11 Nasal B. parapertussis DNA (PCR) NOT DETECTED 12/19/23 11:11 Nasal Coronavir 229E PCR NOT DETECTED 12/19/23 11:11 Nasal Coronavir HKU1 PCR NOT DETECTED 12/19/23 11:11 Nasal Coronavir NL63 PCR NOT DETECTED 12/19/23 11:11 Nasal Coronavir OC43 PCR NOT DETECTED 12/19/23 11:11 Nasal Enterovir/Rhinovir PCR NOT DETECTED 12/19/23 11:11 Nasal Influenza B PCR NOT DETECTED 12/19/23 11:11 Nasal Influenza A PCR NOT DETECTED 12/19/23 11:11 Nasal Parainfluen 1 PCR NOT DETECTED 12/19/23 11:11 Nasal Parainfluen 2 PCR NOT DETECTED 12/19/23 11:11 Nasal Parainfluen 3 PCR NOT DETECTED 12/19/23 11:11 Nasal Parainfluen 4 PCR NOT DETECTED 12/19/23 11:11 Nasal RSV (PCR) NOT DETECTED 12/19/23 11:11 Nasal Screen MRSA (PCR) NEGATIVE (NEGATIVE) 12/19/23 18:20 Nasal B.pertussis DNA PCR NOT DETECTED 12/19/23 11:11 Nasal C.pneumoniae (PCR) NOT DETECTED 12/19/23 11:11 Monica Human Metapneumo PCR NOT DETECTED 12/19/23 11:11 Nasal M.pneumoniae (PCR) NOT DETECTED 12/19/23 11:11 Nasal SARS-CoV-2 (PCR) NOT DETECTED 12/19/23 11:11 Stl Occult Blood (IFOB) POSITIVE (NEGATIVE) A 12/28/23 06:00 Last Dose Date 12-31-23 01/02/24 04:18 Last Dose Time 23:00 01/02/24 04:18 Vancomycin Trough 27.6 ug/mL H* 01/01/24 05:34 Random Vancomycin 14.5 ug/mL 01/02/24 04:18 Blood Type A POSITIVE 01/02/24 05:52 Blood Type Recheck A POSITIVE 01/02/24 04:18 Antibody Screen NEGATIVE 01/02/24 05:52 NOLVIA, IgG Specific POSITIVE 01/02/24 09:36 NOLVIA, Polyspecific POSITIVE 01/02/24 09:36 NOLVIA, C3d Specific NEGATIVE 01/02/24 09:36 Crossmatch IS Only See Detail 01/02/24 05:52 Sepsis Event Note (H) - Evaluation Current Stage of Sepsis: Ruled out ABX Reporting Has patient been on IV antibiotics over the past 48 hours?: Yes
[2024-01-06] MEDS: MEGESTROL 400 MG/10 ML UDC PO SCH (11:26)
--- NOTE | 2024-01-06 14:47 | XRAY Report ---
PROCEDURE: Chest 1V INDICATIONS: new rales in lungs TECHNIQUE: One view of the chest was acquired. COMPARISON: 01/02/2024, 12/28/2023 FINDINGS: Surgical changes and devices: A left-sided PICC line can be seen, with the tip overlying the inferio r aspect of the superior vena cava, 1 cm above the cavoatrial junction. Cervical spine fixation hardware is seen. Lungs and pleura: Interstitial type prominence can be seen, which are slightly improved compared to the prior. On the semiupright images, no large pneumothorax or large pleural effusions can be seen. N o focal infiltrates are seen. Mediastinum: The aorta is prominent and tortuous. The cardiac contours are within normal limits. Bones and chest wall: No suspicious bony lesions. Age-appropriate degenerative changes are seen. Overlying soft tissues appear unremarkable. IMPRESSION: Interstitial type infiltrates are seen, which are improved compared to the prior examination. Stable left-sided PICC line. Reviewed by: Luis Miguel Clark MD on 01/06/2024 1:46 PM SANDRINE Approved by: Luis Miguel Clark MD on 01/06/2024 1:46 PM SANDRINE Station ID: [id number]
[2024-01-06 19:19] LABS: HCT - HEMATOCRIT 28.2 % (42.0-52.0); HGB - HEMOGLOBIN 8.6 g/dL (14.0-18.0)
--- NOTE | 2024-01-07 07:54 | PROVIDER PROGRESS NOTE ---
Assessment/Plan - Problem List (1) Hypoglycemia Assessment/Plan: Blood glucose still on the low end's No acute hypoglycemia events, encourage oral intake, palliative care consult for goal of care discussion (2) Acute blood loss anemia Assessment/Plan: Likely due to stress ulcer Appears stable, continue Protonix (3) Right arm weakness Assessment/Plan: Likely due to deconditioning from being intubated and in ICU for days Continue PT OT (4) Acute respiratory failure with hypoxia and hypercapnia Assessment/Plan: Improved, stable Continue oxygen treatment and as needed (5) Heart failure with mid-range ejection fraction (HFmEF) Assessment/Plan: Stable, unchanged for the past 7 days, appears euvolemic (6) Type 2 SC (myocardial infarction) Assessment/Plan: Past acute phase, Give aspirin and Plavix, give beta-ya (7) Osteomyelitis Qualifiers: Osteomyelitis type: other chronic Osteomyelitis location: foot Lat erality: right Qualified Code(s): M86.671 - Other chronic osteomyelitis, right ankle and foot Assessment/Plan: Continue cefepime and Vanco for total 6 weeks (8) Positive culture findings in sputum Assessment/Plan: On antibiotic treatment - Current Meds Current Meds: Current Medications Generic Name Dose Route Start Last Admin Trade Name Freq PRN Reason Stop Dose Admin Acetaminophen 650 mg 01/03/24 15:37 01/07/24 06:34 Acetaminophen 325 Mg Tablet PO 650 mg Q4HR PRN Administration Pain or Fever > 38C (100.4F) Albuterol/Ipratropium 3 ml 12/19/23 19:35 01/07/24 06:20 Ipratropium/Albuterol 3 Ml Neb INH 3 ml Q4HR PRN Administration Wheezing Benzonatate 100 mg 01/03/24 02:58 01/07/24 06:34 Benzonatate 100 Mg Capsule PO 100 mg TID PRN Administration Cough Budesonide 0.5 mg 12/19/23 19:36 01/07/24 06:19 Budesonide 0.5 Mg/2 Ml Neb INH 0.5 mg RTBID DARCIE Administration Calcium Carbonate/Glycine 500 mg 01/02/24 13:00 01/06/24 21:54 Calcium Carbonate Chew 500 Mg Tablet PO 500 mg BID DARCIE Administration Dextrose 50 ml 01/04/24 08:07 01/04/24 14:04 Dextrose 50% Abboject 25 Gm/50 Ml Syringe IVP 50 ml PRN PRN Administration if BS<70 Fluticasone Propionate 2 sprays 12/19/23 21:00 01/06/24 21:53 Fluticasone Nasal [place] MONICA 2 sprays QPM DARCIE Administration Gabapentin 300 mg 01/03/24 21:00 01/06/24 21:54 Gabapentin 300 Mg Capsule PO 300 mg QPM DARCIE Administration Haloperidol 0.5 mg 01/04/24 15:28 01/06/24 15:38 Haloperidol 5 Mg/Ml Vial IVP 0.5 mg Q6H PRN Administration Agitation Vancomycin HCl 1 gm/ Sodium 250 mls @ 167 mls/hr 12/27/23 09:00 01/06/24 23:32 Chloride IV Infused Q12H DARCIE Infusion Cefepime HCl 1 gm/ Sodium 100 mls @ 200 mls/hr 01/05/24 23:00 01/07/24 07:03 Chloride IV Infused Q8H DARCIE Infusion Insulin Human Lispro 1 - 9 unit 12/30/23 17:00 01/06/24 21:54 Insulin Lispro 300 Unit/3 Ml Pen SUBQ Not Given 0800,1200,1700,2100 [facility] Protocol Lidocaine 1 patch 01/03/24 20:52 01/06/24 08:02 Lidocaine Patch 5% TOP 1 patch DAILY PRN Administration Moderate Pain (Level 4-6) Megestrol Acetate 400 mg 01/06/24 09:00 01/06/24 11:26 Megestrol 400 Mg/10 Ml Udc PO Not Given DAILY DARCIE Methadone HCl 5 mg 01/03/24 21:00 01/06/24 21:54 Methadone 5 Mg Tablet PO 5 mg BID DARCIE Administration Mirtazapine 15 mg 01/05/24 21:00 01/06/24 21:54 Mirtazapine 15 Mg Tablet PO 15 mg QPM DARCIE Administration Morphine Sulfate 1 mg 01/04/24 15:30 01/06/24 13:58 Morphine 2 Mg/Ml Carpuject IVP 1 mg Q6H PRN Administration Severe Pain (Level 7-10) Ondansetron HCl 4 mg 01/04/24 14:12 01/05/24 15:57 Ondansetron 4 Mg/2 Ml Vial IVP 4 mg Q4HR PRN Administration Nausea / Vomiting Pantoprazole Sodium 40 mg 01/04/24 14:00 01/06/24 21:55 Pantoprazole 40 Mg Vial IVP 40 mg BID DARCIE Administration Phenol/Menthol 2 sprays 12/19/23 20:31 12/19/23 22:29 Phenol Throat [place] 177 Ml MM 2 sprays Q2HR PRN Administration Throat Pain Saccharomyces Boulardii 250 mg 01/03/24 10:00 01/06/24 16:15 Saccharomyces Boulardii 250 Mg Capsule PO 250 mg BIDWM DARCIE Administration Sodium Chloride 10 ml 12/20/23 01:00 01/06/24 23:46 Sodium Chloride Flush 0.9% 10 Ml Syringe IVP 10 ml 0100,0900,1700 DARCIE Administration Sodium Chloride 10 ml 12/19/23 17:32 01/05/24 09:25 Sodium Chloride Flush 0.9% 10 Ml Syringe IVP 10 ml PRN PRN Administration NEEDED PER PROVIDER ORDERS Sucralfate 1 gm 01/05/24 22:00 01/07/24 06:43 Sucralfate 1 Gm/10 Ml Udc PO Not Given 0700,1100,1600,2200 DARCIE - Lab Result Fish Bone Diagrams: 01/07/24 08:14 01/07/24 08:14 - Additional Planning Condition/Complexity: Unstable My Orders: My Active Orders 01/06/24 09:00 Megestrol [Megace] 400 mg PO DAILY 01/07/24 BMP - BASIC METABOLIC PANEL [CHEM] Routine CBC - COMP BLD CT W/AUTO DIFF [HEME] Routine 01/08/24 05:00 BMP - BASIC METABOLIC PANEL [CHEM] DAILYLAB CBC [CBC - COMP BLD CT W/AUTO DIFF] [HEME] DAILYLAB VANCOMYCIN TROUGH [CHEM] Timed 01/09/24 05:00 BMP - BASIC METABOLIC PANEL [CHEM] DAILYLAB CBC [CBC - COMP BLD CT W/AUTO DIFF] [HEME] DAILYLAB 01/10/24 05:00 BMP - BASIC METABOLIC PANEL [CHEM] DAILYLAB CBC [CBC - COMP BLD CT W/AUTO DIFF] [HEME] DAILYLAB 01/11/24 05:00 BMP - BASIC METABOLIC PANEL [CHEM] DAILYLAB CBC [CBC - COMP BLD CT W/AUTO DIFF] [HEME] DAILYLAB 01/12/24 05:00 BMP - BASIC METABOLIC PANEL [CHEM] DAILYLAB CBC [CBC - COMP BLD CT W/AUTO DIFF] [HEME] DAILYLAB Plan Discussed with:: Patient Time Spent: 15-30 minutes Additional Planning Notes: Patient is not medically stable for discharge due to poor oral intake leads to hypoglycemia, nutrition consult, palliative care consult for further management plan Subjective - Subjective Patient Reports: Other (atient states he feels better, still does not eat much, only tried a few bites when being fed today) Objective Vital Signs: Vital Signs - 24 hr 01/06/24 01/06/24 01/06/24 08:09 10:07 13:00 Temperature 37.2 C 37.2 C Heart Rate Heart Rate [ 108 H 112 H Brachial] Respiratory 18 18 Rate Blood Pressure 124/75 134/80 H [Right Brachial artery] O2 Saturation 99 96 If not protocol 2 2 2 : Oxygen Flow, liters/minute 01/06/24 01/06/24 01/06/24 16:19 19:10 21:00 Temperature 37.6 C 36.7 C Heart Rate Heart Rate [ 127 H 121 H Brachial] Respiratory 19 22 Rate Blood Pressure 130/86 H 130/80 [Right Brachial artery] O2 Saturation 100 93 If not protocol 2 2 2 : Oxygen Flow, liters/minute 01/07/24 01/07/24 01/07/24 00:25 04:45 06:15 Temperature 36.7 C 37.4 C Heart Rate 125 H Heart Rate [ 121 H 129 H Brachial] Respiratory 16 20 20 Rate Blood Pressure 159/89 H 133/88 H [Right Brachial artery] O2 Saturation 93 91 L If not protocol 2 2 2 : Oxygen Flow, liters/minute Oxygen O2 Source [With Activity] Nasal cannula O2 Source [Without Activity] Nasal cannula O2 Source Nasal cannula Oxygen Flow Rate 3 I&O (Last 24 Hrs): Intake and Output Totals x24h 01/05/24 01/06/24 01/07/24 22:59 23:59 23:59 Intake Total 200 Output Total Balance 200 General: Alert HEENT: PERRLA, EOMI Neck: Supple Neuro: Alert, Other (Right arm weakness significant) Cardiovascular: Regular rate Genitourinary: Normal Inspection - Results Results: Laboratory Results Specimen Type BLOOD 01/02/24 09:36 WBC 6.6 x10^3/uL (4.8-10.8) 01/06/24 09:24 RBC 2.78 10^6/uL (4.70-6.10) L 01/06/24 09:24 Hgb 8.6 g/dL (14.0-18.0) L 01/06/24 19:14 Hct 28.2 % (42.0-52.0) L 01/06/24 19:14 MCV 98.2 fL (80.0-94.0) H 01/06/24 09:24 MCH 28.8 pg (27.0-31.0) 01/06/24 09:24 MCHC 29.3 g/dL (32.0-36.0) L 01/06/24 09:24 RDW 15.2 % (12.0-15.0) H 01/06/24 09:24 Plt Count 401 10^3/uL (130-450) 01/06/24 09:24 MPV 9.0 fL (7.4-11.4) 01/06/24 09:24 Reticulocyte % (Auto) 4.48 % (0.5-2.3) H 01/02/24 09:36 Neut # (Auto) 4.9 10^3/uL (1.5-6.6) 01/06/24 09:24 Lymph # (Auto) 0.8 10^3/uL (1.5-3.5) L 01/06/24 09:24 [place] # (Auto) 0.6 10^3/uL (0.0-1.0) 01/06/24 09:24 Eos # (Auto) 0.3 10^3/uL (0.0-0.7) 01/06/24 09:24 Baso # (Auto) 0.1 10^3/uL (0.0-0.1) 01/06/24 09:24 Absolute Nucleated RBC 0.00 x10^3/uL 01/06/24 09:24 Total Counted 100 12/20/23 04:16 Band Neuts % (Manual) 16 % (0-10) H 12/20/23 04:16 Abnorm Lymph % (Manual) 0 % 12/20/23 04:16 Myelocytes % 1 % (-0) H 12/20/23 04:16 Nucleated RBC % 0.0 /100WBC 01/06/24 09:24 Neutrophils # (Manual) 16.4 10^3/uL (1.5-6.6) H 12/20/23 04:16 Lymphocytes # (Manual) 0.9 10^3/uL (1.5-3.5) L 12/20/23 04:16 Monocytes # (Manual) 0.0 10^3/uL (0.0-1.0) 12/20/23 04:16 Eosinophils # (Manual) 0.0 10^3/uL (0-0.7) 12/20/23 04:16 Basophils # (Manual) 0.0 10^3/uL (0-0.1) 12/20/23 04:16 Differential Comment MANUAL DIFFERENTIAL 12/20/23 04:16 Manual Slide Review Indicated 12/19/23 12:45 Pathologist Review SEE SEPARATE REPORT 01/02/24 09:36 Platelet Estimate NORMAL (130-450,000) (NORMAL) 12/20/23 04:16 RBC Morph Micro Appear 3+ HYPOCHROMASIA (NORMAL) 2+ ANISOCYTOSIS (NORMAL) 1+ POLYCHROMASIA (NORMAL) 1+ MACROCYTOSIS (NORMAL) 01/02/24 04:18 RBC Morph Micro Appear 3+ HYPOCHROMASIA (NORMAL) 2+ ANISOCYTOSIS (NORMAL) 1+ POLYCHROMASIA (NORMAL) 1+ MACROCYTOSIS (NORMAL) 01/02/24 04:18 RBC Morph Micro Appear 3+ HYPOCHROMASIA (NORMAL) 2+ ANISOCYTOSIS (NORMAL) 1+ POLYCHROMASIA (NORMAL) 1+ MACROCYTOSIS (NORMAL) 01/02/24 04:18 RBC Morph Micro Appear 3+ HYPOCHROMASIA (NORMAL) 2+ ANISOCYTOSIS (NORMAL) 1+ POLYCHROMASIA (NORMAL) 1+ MACROCYTOSIS (NORMAL) 01/02/24 04:18 Absolute Retic 0.118 10^6/uL (0.020-0.110) H 01/02/24 09:36 Haptoglobin 284 mg/dL (29-370) 01/02/24 09:36 D-Dimer 266.7 ng/mL (200.0-255.0) H 12/19/23 12:45 Bld Gas Analysis Time 1343 01/03/24 13:35 Sample Site LEFT RADIAL 01/03/24 13:35 ABG pH 7.47 (7.35-7.45) H 01/03/24 13:35 ABG pCO2 38 mmHg (34-45) 01/03/24 13:35 ABG pO2 60 mmHg (80-100) L 01/03/24 13:35 ABG HCO3 26.7 mmol/L (22.0-26.0) H 01/03/24 13:35 ABG Total CO2 27.8 MMOL/L (21.0-29.0) 01/03/24 13:35 ABG O2 Saturation 92 % (94-98) L 01/03/24 13:35 ABG Base Excess 2.9 mmol/L (-2.0-3.0) 01/03/24 13:35 Moi Test POSITIVE 01/03/24 13:35 VBG pH 7.450 (7.31-7.41) H 12/29/23 08:32 VBG pCO2 41.8 mmHg (41-51) 12/26/23 14:25 VBG pO2 133.9 mmHg (25-47) H 12/26/23 14:25 VBG HCO3 30.0 mmol/L (23-28) H 12/26/23 14:25 VBG Total CO2 31.3 mmol/L (24-29) H 12/26/23 14:25 VBG O2 Saturation 98.5 % (60-80) H 12/26/23 14:25 VBG Base Excess 5.9 mmol/L (-2 - +2) H 12/26/23 14:25 Ionized Calcium 1.14 mmol/L (1.15-1.33) L 12/29/23 08:32 Respiration Rate 16 b/min 12/29/23 09:10 Room Air YES 01/03/24 13:35 O2 Delivery Device C-PAP 01/03/24 13:35 O2 Liters/Min 4.00 LPM 01/01/24 16:27 Vent Mode ASSIST/CONTROL 12/29/23 09:10 FiO2 35.00 12/29/23 09:10 Tidal Volume 420 mL 12/29/23 09:10 PEEP 5 cmH2O 12/29/23 09:10 EPAP 5 cmH2O 12/20/23 11:10 IPAP 12 cmH2O 12/20/23 11:10 Sodium 140 mmol/L (135-145) 01/06/24 09:24 Potassium 3.6 mmol/L (3.5-4.5) 01/06/24 09:24 Chloride 105 mmol/L (101-111) 01/06/24 09:24 Carbon Dioxide 29 mmol/L (21-32) 01/06/24 09:24 Anion Gap 6.0 (6-13) 01/06/24 09:24 BUN 10 mg/dL (6-20) 01/06/24 09:24 Creatinine 0.5 mg/dL (0.6-1.3) L 01/06/24 09:24 Estimated GFR (MDRD) 170 (>89) 01/06/24 09:24 Glucose 86 mg/dL (74-104) 01/06/24 09:24 POC Whole Bld Glucose 92 mg/dL (70 - 100) 01/07/24 07:44 Estimat Average Glucose 143 mg/dL (70-100) H 12/20/23 04:16 Hemoglobin A1c % 6.6 % (4.27-6.07) H 12/20/23 04:16 Lactic Acid 0.7 mmol/L (0.5-2.2) 12/20/23 13:35 Calcium 8.7 mg/dL (8.5-10.3) 01/06/24 09:24 Phosphorus 2.9 mg/dL (2.5-5.0) 01/01/24 05:34 Magnesium 1.7 mg/dL (1.7-2.3) 01/01/24 05:34 Total Bilirubin 0.3 mg/dL (0.2-1.0) 01/02/24 09:36 AST 9 IU/L (10-42) L 01/02/24 09:36 ALT 12 IU/L (10-60) 01/02/24 09:36 Alkaline Phosphatase 36 IU/L (42-121) L 01/02/24 09:36 Lactate Dehydrogenase 151 IU/L (140-271) 01/02/24 09:36 Troponin I High Sens 21.7 ng/L (2.3-19.7) H* 01/01/24 05:34 C-React Prot High Sens 82.40 mg/L 12/19/23 12:45 Total Protein 5.1 g/dL (6.4-8.9) L 01/02/24 09:36 Albumin 2.8 g/dL (3.2-5.5) L 01/02/24 09:36 Globulin 2.3 g/dL (2.1-4.2) 01/02/24 09:36 Albumin/Globulin Ratio 1.2 (1.0-2.2) 01/02/24 09:36 Prealbumin 14 mg/dL (17-34) L 01/04/24 04:15 Triglycerides 214 mg/dL (48-352) 12/24/23 04:53 Vitamin B12 983 pg/mL (180-914) H 12/20/23 04:16 Folate 7.2 ng/mL (5.90 - >24.8) 12/20/23 04:16 Nasal Adenovirus (PCR) NOT DETECTED 12/19/23 11:11 Nasal B. parapertussis DNA (PCR) NOT DETECTED 12/19/23 11:11 Nasal Coronavir 229E PCR NOT DETECTED 12/19/23 11:11 Nasal Coronavir HKU1 PCR NOT DETECTED 12/19/23 11:11 Nasal Coronavir NL63 PCR NOT DETECTED 12/19/23 11:11 Nasal Coronavir OC43 PCR NOT DETECTED 12/19/23 11:11 Nasal Enterovir/Rhinovir PCR NOT DETECTED 12/19/23 11:11 Nasal Influenza B PCR NOT DETECTED 12/19/23 11:11 Nasal Influenza A PCR NOT DETECTED 12/19/23 11:11 Nasal Parainfluen 1 PCR NOT DETECTED 12/19/23 11:11 Nasal Parainfluen 2 PCR NOT DETECTED 12/19/23 11:11 Nasal Parainfluen 3 PCR NOT DETECTED 12/19/23 11:11 Nasal Parainfluen 4 PCR NOT DETECTED 12/19/23 11:11 Nasal RSV (PCR) NOT DETECTED 12/19/23 11:11 Nasal Screen MRSA (PCR) NEGATIVE (NEGATIVE) 12/19/23 18:20 Nasal B.pertussis DNA PCR NOT DETECTED 12/19/23 11:11 Nasal C.pneumoniae (PCR) NOT DETECTED 12/19/23 11:11 [place] Human Metapneumo PCR NOT DETECTED 12/19/23 11:11 Nasal M.pneumoniae (PCR) NOT DETECTED 12/19/23 11:11 Nasal SARS-CoV-2 (PCR) NOT DETECTED 12/19/23 11:11 Stl Occult Blood (IFOB) POSITIVE (NEGATIVE) A 12/28/23 06:00 Last Dose Date 12-31-23 01/02/24 04:18 Last Dose Time 23:00 01/02/24 04:18 Vancomycin Trough 27.6 ug/mL H* 01/01/24 05:34 Random Vancomycin 14.5 ug/mL 01/02/24 04:18 Blood Type A POSITIVE 01/02/24 05:52 Blood Type Recheck A POSITIVE 01/02/24 04:18 Antibody Screen NEGATIVE 01/02/24 05:52 NOLVIA, IgG Specific POSITIVE 01/02/24 09:36 NOLVIA, Polyspecific POSITIVE 01/02/24 09:36 NOLVIA, C3d Specific NEGATIVE 01/02/24 09:36 Crossmatch IS Only See Detail 01/02/24 05:52 Sepsis Event Note (H) - Evaluation Current Stage of Sepsis: Ruled out ABX Reporting Has patient been on IV antibiotics over the past 48 hours?: Yes Current Medications - Current Medications Current Medications: Active Medications Acetaminophen (Acetaminophen 325 Mg Tablet) 650 mg PO Q4HR PRN PRN Reason: Pain or Fever > 38C (100.4F) Last Admin: 01/07/24 06:34 Dose: 650 mg Albuterol/Ipratropium (Ipratropium/Albuterol 3 Ml Neb) 3 ml INH Q4HR PRN PRN Reason: Wheezing Last Admin: 01/07/24 06:20 Dose: 3 ml Benzonatate (Benzonatate 100 Mg Capsule) 100 mg PO TID PRN PRN Reason: Cough Last Admin: 01/07/24 20:54 Dose: 100 mg Budesonide (Budesonide 0.5 Mg/2 Ml Neb) 0.5 mg INH RTBID DARCIE Last Admin: 01/07/24 06:19 Dose: 0.5 mg Calcium Carbonate/Glycine (Calcium Carbonate Chew 500 Mg Tablet) 500 mg PO BID DARCIE Last Admin: 01/07/24 20:53 Dose: 500 mg Dextrose (Dextrose 50% Abboject 25 Gm/50 Ml Syringe) 50 ml IVP PRN PRN PRN Reason: if BS<70 Last Admin: 01/04/24 14:04 Dose: 50 ml Fluticasone Propionate (Fluticasone Nasal [place]) 2 sprays MONICA QPM DARCIE Last Admin: 01/07/24 21:04 Dose: Not Given Gabapentin (Gabapentin 300 Mg Capsule) 300 mg PO QPM DARCIE Last Admin: 01/07/24 20:53 Dose: 300 mg Haloperidol (Haloperidol 5 Mg/Ml Vial) 0.5 mg IVP Q6H PRN PRN Reason: Agitation Last Admin: 01/06/24 15:38 Dose: 0.5 mg Vancomycin HCl 1 gm/ Sodium (Chloride) 250 mls @ 167 mls/hr IV Q12H [facility] Last Infusion: 01/07/24 22:25 Dose: Infused Cefepime HCl 1 gm/ Sodium (Chloride) 100 mls @ 200 mls/hr IV Q8H [facility] Last Admin: 01/07/24 22:54 Dose: 200 mls/hr Insulin Human Lispro (Insulin Lispro 300 Unit/3 Ml Pen) 1 - 9 unit SUBQ 0800,1200,1700,2100 [facility]; Protocol Last Admin: 01/07/24 20:54 Dose: Not Given Lidocaine (Lidocaine Patch 5%) 1 patch TOP DAILY PRN PRN Reason: Moderate Pain (Level 4-6) Last Admin: 01/06/24 08:02 Dose: 1 patch Megestrol Acetate (Megestrol 400 Mg/10 Ml Udc) 400 mg PO DAILY [facility] Last Admin: 01/07/24 10:09 Dose: 400 mg Methadone HCl (Methadone 5 Mg Tablet) 2.5 mg PO BID [facility] Mirtazapine (Mirtazapine 15 Mg Tablet) 15 mg PO QPM [facility] Last Admin: 01/07/24 20:54 Dose: 15 mg Morphine Sulfate (Morphine 2 Mg/Ml Carpuject) 1 mg IVP Q6H PRN PRN Reason: Severe Pain (Level 7-10) Last Admin: 01/07/24 20:56 Dose: 1 mg Multivitamins/Minerals (Multivitamin W/Minerals Tablet) 1 tab PO DAILYWM [facility] Last Admin: 01/07/24 14:37 Dose: Not Given Nitroglycerin (Nitroglycerin Sl 0.4 Mg Tablet) 0.4 mg SL Q5MIN PRN PRN Reason: Chest Pain Ondansetron HCl (Ondansetron 4 Mg/2 Ml Vial) 4 mg IVP Q4HR PRN PRN Reason: Nausea / Vomiting Last Admin: 01/07/24 21:06 Dose: 4 mg Ondansetron HCl (Ondansetron Odt 4 Mg Tablet) 4 mg TL Q4HR PRN PRN Reason: Nausea / Vomiting Pantoprazole Sodium (Pantoprazole 40 Mg Vial) 40 mg IVP BID [facility] Last Admin: 01/07/24 20:54 Dose: 40 mg Theophylline Anhydrous [ Theophylline Er] 300 Mg Tab.Er.12h 1 each PO BID [facility] Phenol/Menthol (Phenol Throat [place] 177 Ml) 2 sprays MM Q2HR PRN PRN Reason: Throat Pain Last Admin: 12/19/23 22:29 Dose: 2 sprays Saccharomyces Boulardii (Saccharomyces Boulardii 250 Mg Capsule) 250 mg PO BIDWM [facility] Last Admin: 01/07/24 15:51 Dose: 250 mg Sodium Chloride (Sodium Chloride Flush 0.9% 10 Ml Syringe) 10 ml IVP 0100,0900,1700 [facility] Last Admin: 01/07/24 15:51 Dose: 10 ml Sodium Chloride (Sodium Chloride Flush 0.9% 10 Ml Syringe) 10 ml IVP PRN PRN PRN Reason: NEEDED PER PROVIDER ORDERS Last Admin: 01/05/24 09:25 Dose: 10 ml Sucralfate (Sucralfate 1 Gm/10 Ml Udc) 1 gm PO 0700,1100,1600,2200 [facility] Last Admin: 01/07/24 21:08 Dose: Not Given Albuterol Sulfate [Proair Hfa Inhaler] 2 puffs INH Q4H PRN 03/30/18 Fluticasone [Flonase] 1 spray [place]ICA BID 05/07/21 Gabapentin [Neurontin] 900 mg PO TID 05/07/21 Furosemide [Lasix] 20 mg PO BID 05/25/21 Montelukast [Singulair] 10 mg PO QPM 05/25/21 Methadone [Methadone Hcl] 10 mg PO QDAC 12/19/23 Theophylline Anhydrous [Theophylline ER] 300 mg PO BID 12/19/23 Azithromycin 500 mg PO UD 12/20/23 Beclomethasone Dipropionate [Qvar Redihaler (80 mcg)] 1 puffs INH BID 12/20/23 Budesonide/Formoterol Fumarate [Symbicort 160-4.5 Mcg Inhaler] 2 puffs INH BID 12/20/23 Ferrous Sulfate [Feosol] 325 mg PO DAILY 12/20/23 Fexofenadine HCl 180 mg PO DAILY 12/20/23 Ipratropium [place] 2 spray MONICA TID 12/20/23 Ipratropium/Albuterol [Combivent Respimat] 1 puffs INH QID 12/20/23 Ipratropium/Albuterol [Duoneb] 3 ml PO Q4H PRN 12/20/23 Methadone [Methadone Hcl] 5 mg PO QPM 12/20/23 Multivitamin with Minerals [Multivitamins with Minerals] 1 tab PO DAILY 12/20/23 Nystatin [Mycostatin] 5 ml PO QID 12/20/23 Pantoprazole [Protonix] 40 mg PO BID 12/20/23 Sertraline [Zoloft] 25 mg PO DAILY 12/20/23 Sulfamethox/Trimeth 800/160 [Bactrim Ds] 1 tab PO UD 12/20/23 Umeclidinium [place] [Incruse Ellipta] 1 inh INH DAILY 12/20/23 guaiFENesin [Chest Congestion Relief] 400 mg PO Q6H PRN 12/20/23
[2024-01-07 08:30] LABS: BASOPHILS % (AUTO) 0.4 %; EOSINOPHILS # (AUTO) 0.3 10^3/uL (0.0-0.7); EOSINOPHILS % (AUTO) 3.2 %; HCT - HEMATOCRIT 27.1 % (42.0-52.0); HGB - HEMOGLOBIN 8.3 g/dL (14.0-18.0); LYMPHOCYTES # (AUTO) 0.7 10^3/uL (1.5-3.5); LYMPHOCYTES % (AUTO) 7.4 %; MEAN CORPUSCULAR HEMOGLOBIN 28.6 pg (27.0-31.0); MEAN CORPUSCULAR HGB CONC 30.6 g/dL (32.0-36.0); MEAN CORPUSCULAR VOLUME 93.4 fL (80.0-94.0); MEAN PLATELET VOLUME 8.7 fL (7.4-11.4); MONOCYTES # (AUTO) 0.8 10^3/uL (0.0-1.0); MONOCYTES % (AUTO) 7.7 %; NEUTROPHILS # (AUTO) 7.9 10^3/uL (1.5-6.6); NEUTROPHILS % (AUTO) 80.5 %; PLT - PLATELET COUNT 389 10^3/uL (130-450); RED CELL DISTRIBUTION WIDTH 15.3 % (12.0-15.0); WHITE BLOOD COUNT 9.9 x10^3/uL (4.8-10.8)
[2024-01-07 08:44] LABS: CALCIUM 8.7 mg/dL (8.5-10.3); CREATININE 0.4 mg/dL (0.6-1.3); POTASSIUM 3.3 mmol/L (3.5-4.5)
[2024-01-07] MEDS: MULTIVITAMIN W/MINERALS TABLET PO SCH (14:37)
--- NOTE | 2024-01-07 16:10 | CONSULTATION NOTE ---
Palliative Care Consultation - Referral Referring Provider: Dr. Manuel Brooks Time of Visit: 14:45-16:00 Referral setting: Hospitalized patient Referral Reason: Goals of Care - Information Sources Records reviewed: RN notes reviewed, Previous records reviewed History/Review of Systems obtained from: Family (check in with son) Exam limitations: Clinical condition (Patient confused; lethargic) - History of Present Illness Brief History of Present Illness: This is a 58-year-old gentleman who was admitted on 12/19/2023 from [facility] for which he was there for rehab stay, after he developed shortness of breath, became obtunded and tachycardic.He was diagnosed with pneumonia at that time, was found to have acute respiratory failure with hypoxia and hypercarbia, with a asthma/COPD exacerbation, as well as his chronic diabetic ulcers and osteomyelitis. It appears patient has not been able to participate in any kind of history secondary to persistent altered mental status. He did have an MRI of the brain that did not show any acute process. He was extubated on 12/29/2023, and initially showed some improvement, but remained quite weak, continuing on IV antibiotics, but also developed acute blood loss anemia, thought to be associated with stress ulcer and has been transfused. Had consulted general surgery, for possible EGD, risk versus benefit was reviewed, and patient being managed medically. In review of summary of care, patient has had multiple emergency room visits, most of these appear related to his wounds, he is also had four hospital admits since June prior to this admit, 2 at [facility] and 2 at [facility] prior to this admit here. His last admit at [facility] on 11/19 was for persistent local cellulitis, acute respiratory failure, pressure ulcer of sacral region stage IV, and influenza and pneumonia.In review of notes, it also appears over a year ago he also had COVID and was intubated at nighttime, was trached and had a been on PEG tube feedings. Did also obtain his records from the pain clinic, which review that he has had a history of type 2 diabetes with peripheral neuropathy, severe asthma from polluted air exposure during time and goal for, chronic thoracic compression fractures due to chronic steroid use, known cervical radiculopathy, chronic back pain, lumbar radiculopathy, known left foot drop, and was on long- term chronic opioid therapy, with methadone initiated on 10/16/2023 for long- acting 5 mg twice daily and oxycodone for breakthrough pain. His last titration on 116 was 10 mg in a.m. and 5 mg in p.m., with oxycodone 5 mg 4 times a day for breakthrough pain. He was struggling with pain management at that time because of worsening pain from foot ulcers. Patient has been followed by wound care here at [facility] since September, history does note right foot ulcer, was hospitalized for treatment of MRSA, longstanding issues, previously had amputation for osteomyelitis, was supposed to be strictly nonweightbearing and being followed for wounds. Palliative care was asked to consult on patient regarding goals of care, in the context the patient has continued to do very poorly. He was alert and up but not oriented after extubated, but has continued to do poorly with very little intake, not able to feed himself, and is not meeting his nutritional needs with weight loss. Patient was supported with tube feedings while on the vent, with improvement of prealbumin at that time, but now doing poorly. Patient has not returned to previous level of mentation, and on exam is not orientated to place, unable to recall any history or why he is hospitalized, and agitated when questioned. He is very lethargic, c/o feeling cold, it was cold in room and got a blanket, and wanted to be left alone. He was able to tell me his son's name was Tad. I had spoken briefly to the son, who was unable to meet with me today , we did discuss meeting tomorrow, regarding the question around tube feedings and next steps. Medical/Surgical History - Past Medical History Cardiovascular: reports: Congestive heart failure, Hypertension, Other (sinus tachycardia) Respiratory: reports: Asthma ("from polluted air exposure during time at [facility]"), Pneumonia (multiple episodes of pneumonia; most recent 09/10 [facility]; 09/21 adenviral pneumonia; 11/19/23 inflluenza pneumonia), Sleep apnea, CPAP use Neuro: Other (left foot drop) Endocrine/Autoimmune: reports: Type 2 diabetes GI: reports: GERD, GI bleed : reports: Kidney stones HEENT: reports: None Psych: reports: Anxiety Musculoskeletal: reports: Fatigue, Chronic back pain Derm: reports: Other (Has chronic diabetic foot ulcers, has toe amputations) MRSA Hx?: Yes - Past Surgical History General: reports: Colonoscopy Ortho: reports: Hip replacement (right 08/2020) Neuro: reports: Other (neck surgery) HEENT: reports: Cataracts, Tracheostomy (hx), Other Derm: reports: Other (amputation toes for osteo) - Substance History Use: Uses substance without health or social issues: Cannabis (Edibles), Methadone, Opioid Social History - Living Situation Living arrangement: At home Living Situation: With family (Lives with son Tad, senior living. Patient recently in [facility] for rehab. Has a daughter, is ) Family History - Family History Family History: Mother: Alive and Well Medications/Allergies - Medications Active Medication List: Active Medications Acetaminophen (Acetaminophen 325 Mg Tablet) 650 mg PO Q4HR PRN PRN Reason: Pain or Fever > 38C (100.4F) Last Admin: 01/07/24 06:34 Dose: 650 mg Albuterol/Ipratropium (Ipratropium/Albuterol 3 Ml Neb) 3 ml INH Q4HR PRN PRN Reason: Wheezing Last Admin: 01/07/24 06:20 Dose: 3 ml Benzonatate (Benzonatate 100 Mg Capsule) 100 mg PO TID PRN PRN Reason: Cough Last Admin: 01/07/24 06:34 Dose: 100 mg Budesonide (Budesonide 0.5 Mg/2 Ml Neb) 0.5 mg INH RTBID DARCIE Last Admin: 01/07/24 06:19 Dose: 0.5 mg Calcium Carbonate/Glycine (Calcium Carbonate Chew 500 Mg Tablet) 500 mg PO BID DARCIE Last Admin: 01/07/24 10:07 Dose: 500 mg Dextrose (Dextrose 50% Abboject 25 Gm/50 Ml Syringe) 50 ml IVP PRN PRN PRN Reason: if BS<70 Last Admin: 01/04/24 14:04 Dose: 50 ml Fluticasone Propionate (Fluticasone Nasal Weldon) 2 sprays MONICA QPM DARCIE Last Admin: 01/06/24 21:53 Dose: 2 sprays Gabapentin (Gabapentin 300 Mg Capsule) 300 mg PO QPM DARCIE Last Admin: 01/06/24 21:54 Dose: 300 mg Haloperidol (Haloperidol 5 Mg/Ml Vial) 0.5 mg IVP Q6H PRN PRN Reason: Agitation Last Admin: 01/06/24 15:38 Dose: 0.5 mg Vancomycin HCl 1 gm/ Sodium (Chloride) 250 mls @ 167 mls/hr IV Q12H [facility] Last Infusion: 01/07/24 12:25 Dose: Infused Cefepime HCl 1 gm/ Sodium (Chloride) 100 mls @ 200 mls/hr IV Q8H [facility] Last Infusion: 01/07/24 15:30 Dose: Infused Insulin Human Lispro (Insulin Lispro 300 Unit/3 Ml Pen) 1 - 9 unit SUBQ 0800,1200,1700,2100 [facility]; Protocol Last Admin: 01/07/24 12:24 Dose: Not Given Lidocaine (Lidocaine Patch 5%) 1 patch TOP DAILY PRN PRN Reason: Moderate Pain (Level 4-6) Last Admin: 01/06/24 08:02 Dose: 1 patch Megestrol Acetate (Megestrol 400 Mg/10 Ml Udc) 400 mg PO DAILY [facility] Last Admin: 01/07/24 10:09 Dose: 400 mg Methadone HCl (Methadone 5 Mg Tablet) 5 mg PO BID [facility] Last Admin: 01/07/24 10:08 Dose: 5 mg Mirtazapine (Mirtazapine 15 Mg Tablet) 15 mg PO QPM [facility] Last Admin: 01/06/24 21:54 Dose: 15 mg Morphine Sulfate (Morphine 2 Mg/Ml Carpuject) 1 mg IVP Q6H PRN PRN Reason: Severe Pain (Level 7-10) Last Admin: 01/06/24 13:58 Dose: 1 mg Multivitamins/Minerals (Multivitamin W/Minerals Tablet) 1 tab PO DAILYWM [facility] Last Admin: 01/07/24 14:37 Dose: Not Given Nitroglycerin (Nitroglycerin Sl 0.4 Mg Tablet) 0.4 mg SL Q5MIN PRN PRN Reason: Chest Pain Ondansetron HCl (Ondansetron 4 Mg/2 Ml Vial) 4 mg IVP Q4HR PRN PRN Reason: Nausea / Vomiting Last Admin: 01/05/24 15:57 Dose: 4 mg Ondansetron HCl (Ondansetron Odt 4 Mg Tablet) 4 mg TL Q4HR PRN PRN Reason: Nausea / Vomiting Pantoprazole Sodium (Pantoprazole 40 Mg Vial) 40 mg IVP BID [facility] Last Admin: 01/07/24 10:09 Dose: 40 mg Theophylline Anhydrous [ Theophylline Er] 300 Mg Tab.Er.12h 1 each PO BID [facility] Phenol/Menthol (Phenol Throat Weldon 177 Ml) 2 sprays MM Q2HR PRN PRN Reason: Throat Pain Last Admin: 12/19/23 22:29 Dose: 2 sprays Saccharomyces Boulardii (Saccharomyces Boulardii 250 Mg Capsule) 250 mg PO BIDWM [facility] Last Admin: 01/07/24 15:51 Dose: 250 mg Sodium Chloride (Sodium Chloride Flush 0.9% 10 Ml Syringe) 10 ml IVP 0100,0900,1700 [facility] Last Admin: 01/07/24 15:51 Dose: 10 ml Sodium Chloride (Sodium Chloride Flush 0.9% 10 Ml Syringe) 10 ml IVP PRN PRN PRN Reason: NEEDED PER PROVIDER ORDERS Last Admin: 01/05/24 09:25 Dose: 10 ml Sucralfate (Sucralfate 1 Gm/10 Ml Udc) 1 gm PO 0700,1100,1600,2200 [facility] Last Admin: 01/07/24 15:51 Dose: 1 gm Albuterol Sulfate [Proair Hfa Inhaler] 2 puffs INH Q4H PRN 03/30/18 Fluticasone [Flonase] 1 spray MONICA BID 05/07/21 Gabapentin [Neurontin] 900 mg PO TID 05/07/21 Furosemide [Lasix] 20 mg PO BID 05/25/21 Montelukast [Singulair] 10 mg PO QPM 05/25/21 Methadone [Methadone Hcl] 10 mg PO QDAC 12/19/23 Theophylline Anhydrous [Theophylline ER] 300 mg PO BID 12/19/23 Azithromycin 500 mg PO UD 12/20/23 Beclomethasone Dipropionate [Qvar Redihaler (80 mcg)] 1 puffs INH BID 12/20/23 Budesonide/Formoterol Fumarate [Symbicort 160-4.5 Mcg Inhaler] 2 puffs INH BID 12/20/23 Ferrous Sulfate [Feosol] 325 mg PO DAILY 12/20/23 Fexofenadine HCl 180 mg PO DAILY 12/20/23 Ipratropium Alvin 2 spray MONICA TID 12/20/23 Ipratropium/Albuterol [Combivent Respimat] 1 puffs INH QID 12/20/23 Ipratropium/Albuterol [Duoneb] 3 ml PO Q4H PRN 12/20/23 Methadone [Methadone Hcl] 5 mg PO QPM 12/20/23 Multivitamin with Minerals [Multivitamins with Minerals] 1 tab PO DAILY 12/20/23 Nystatin [Mycostatin] 5 ml PO QID 12/20/23 Pantoprazole [Protonix] 40 mg PO BID 12/20/23 Sertraline [Zoloft] 25 mg PO DAILY 12/20/23 Sulfamethox/Trimeth 800/160 [Bactrim Ds] 1 tab PO UD 12/20/23 Umeclidinium Alvin [Incruse Ellipta] 1 inh INH DAILY 12/20/23 guaiFENesin [Chest Congestion Relief] 400 mg PO Q6H PRN 12/20/23 - Allergies Allergies/Adverse Reactions: Allergies Allergy/AdvReac Type Severity Reaction Status Date / Time aspirin Allergy Unknown Verified 12/19/23 11:33 cyclobenzaprine AdvReac Hallucinati Verified 12/19/23 11:33 [From Flexeril] ons ibuprofen AdvReac Respiratory Verified 12/19/23 11:33 pseudoephedrine AdvReac Unknown Verified 12/19/23 11:33 [From Entex T] Review of Systems - Constitutional Constitutional: reports: Fatigue, Weakness, Poor appetite, Weight loss - Ears, Nose & Throat Ears, Nose & Throat: reports: Dry mouth - Respiratory Respiratory: reports: Other (on xoygen) - Gastrointestinal Gastrointestinal: reports: Nausea, Poor appetite, Other (only taking a few bits) - Neurological Neurological: reports: Memory problems - Psychiatric Psychiatric: reports: Depression, Anxiety, Aggitation (when questioned) - Endocrine Endocrine: reports: Diabetes type 2, Intolerance to cold - Hematologic/Lymphatic Hematologic/Lymph: reports: Anemia (has been receiving blood transfusions for GI bleeding), Recurrent infections Physical Exam - Vital Signs Vital Signs: Vital Signs x48h Temp Pulse Resp BP Pulse Ox O2 Flow Rate 01/07/24 13:00 37 C 120 H 16 137/85 H 97 2 - Physical Exam General Appearance: positive: Moderate distress, Anxious, Lethargic Eyes Bilateral: positive: Other (difficulty focusing; closing eyes through visit) Neck: positive: Trachea midline Cardiovascular: positive: Regular rate & rhythm Respiratory: positive: No respiratory distress, Other (oxygen on) Abdomen: positive: Other (flat) Skin: positive: Dryness, Bruising, Other (drsg intact) Extremities: positive: No pedal edema Neurologic/Psychiatric: positive: Disoriented to person, Disoriented to place, Disoriented to time, Weakness, Depressed mood/affect, Flat affect, Other (easily agitated) Palliative Care - POLST Patient has POLST: No Pain: Comment (patient unable to comment why on pain medication; denies pain at visit but bedbound) Performance Status: Patient has been acutely ill, in ICU, has been seen by physical and Occupational Therapy, but has refused to participate. Unclear patient's previous level of functioning, other than no from notes he was on a walker, he was supposed to be nonweightbearing secondary to his wounds. - Palliative Care Discussion: Unfortunately patient does not demonstrate ability to participate in decision- making, and spoke to send briefly, reports this is a significant change in his mental status. When explained palliative care was set up to meet regarding goals of care, with the question of whether patient will need long-term PEG tube placement, and if this would be consistent with his father's wishes or goals. Patient on review of chart has been acutely hospitalized multiple times over the last several months, related both to his wounds and infection and recurrent acute respiratory failure, exacerbations of asthma/COPD, and pneumonias. Patient has fairly significant wounds at this time, is not able to nutritionally support himself, unclear if will return to previous level of functioning, and is specifically concerned regarding previous level of cognitive status.Patient is by default to a full code, patient does despite his age, appear quite chronically ill and with frailty. When attempted to have conversation regarding concern with patient about his eating, became agitated, did ask about history of tube feedings, and "do not want a tube down his throat", Patient's son has been witness to patient's refusal of care, agitation, and not cooperating with nurses multiple times. Patient has repeatedly asked to be left alone, and notes reflect patient's distress with any kind of care, touching, positioning, or interaction. Discussed I was here to meet with Tad as well, and did default to Tad being able to make decisions for him. Patient does have two children, I do not see a DPOA on file, when asked Tad if had siblings, does have a sister, who has been getting updates. I told him I would leave a information sheet on palliative care as well as a book called "hard choices for loving people", as he was coming later today.Appears decisions on the table are related to permanent PEG tube feeding, concern of course related to patient's bleeding history, and possible stress ulcer. To discuss with son regarding CODE STATUS, DPOA, and goals for hi s dad. Results - Lab Results Lab results reviewed: Yes Fish Bones: 01/07/24 08:14 01/07/24 08:14 Lab and Imaging Results: Lab Results x24hrs 01/07/24 01/07/24 01/07/24 Range/Units 11:30 08:14 08:14 WBC 9.9 (4.8-10.8) x10^3/uL RBC 2.90 L (4.70-6.10) 10^6/uL Hgb 8.3 L (14.0-18.0) g/dL Hct 27.1 L (42.0-52.0) % MCV 93.4 (80.0-94.0) fL MCH 28.6 (27.0-31.0) pg MCHC 30.6 L (32.0-36.0) g/dL RDW 15.3 H (12.0-15.0) % Plt Count 389 (130-450) 10^3/uL MPV 8.7 (7.4-11.4) fL Neut # (Auto) 7.9 H (1.5-6.6) 10^3/uL Lymph # (Auto) 0.7 L (1.5-3.5) 10^3/uL Schley # (Auto) 0.8 (0.0-1.0) 10^3/uL Eos # (Auto) 0.3 (0.0-0.7) 10^3/uL Baso # (Auto) 0.0 (0.0-0.1) 10^3/uL Absolute Nucleated RBC 0.00 x10^3/uL Nucleated RBC % 0.0 /100WBC Sodium 139 (135-145) mmol/L Potassium 3.3 L (3.5-4.5) mmol/L Chloride 102 (101-111) mmol/L Carbon Dioxide 28 (21-32) mmol/L Anion Gap 9.0 (6-13) BUN 7 (6-20) mg/dL Creatinine 0.4 L (0.6-1.3) mg/dL Estimated GFR (MDRD) 219 (>89) Glucose 101 (74-104) mg/dL POC Whole Bld Glucose 91 (70 - 100) mg/dL Calcium 8.7 (8.5-10.3) mg/dL 01/07/24 01/06/24 01/06/24 Range/Units 07:44 21:29 19:14 WBC (4.8-10.8) x10^3/uL RBC (4.70-6.10) 10^6/uL Hgb 8.6 L (14.0-18.0) g/dL Hct 28.2 L (42.0-52.0) % MCV (80.0-94.0) fL MCH (27.0-31.0) pg MCHC (32.0-36.0) g/dL RDW (12.0-15.0) % Plt Count (130-450) 10^3/uL MPV (7.4-11.4) fL Neut # (Auto) (1.5-6.6) 10^3/uL Lymph # (Auto) (1.5-3.5) 10^3/uL Schley # (Auto) (0.0-1.0) 10^3/uL Eos # (Auto) (0.0-0.7) 10^3/uL Baso # (Auto) (0.0-0.1) 10^3/uL Absolute Nucleated RBC x10^3/uL Nucleated RBC % /100WBC Sodium (135-145) mmol/L Potassium (3.5-4.5) mmol/L Chloride (101-111) mmol/L Carbon Dioxide (21-32) mmol/L Anion Gap (6-13) BUN (6-20) mg/dL Creatinine (0.6-1.3) mg/dL Estimated GFR (MDRD) (>89) Glucose (74-104) mg/dL POC Whole Bld Glucose 92 135 H (70 - 100) mg/dL Calcium (8.5-10.3) mg/dL 01/06/24 Range/Units 16:50 WBC (4.8-10.8) x10^3/uL RBC (4.70-6.10) 10^6/uL Hgb (14.0-18.0) g/dL Hct (42.0-52.0) % MCV (80.0-94.0) fL MCH (27.0-31.0) pg MCHC (32.0-36.0) g/dL RDW (12.0-15.0) % Plt Count (130-450) 10^3/uL MPV (7.4-11.4) fL Neut # (Auto) (1.5-6.6) 10^3/uL Lymph # (Auto) (1.5-3.5) 10^3/uL Schley # (Auto) (0.0-1.0) 10^3/uL Eos # (Auto) (0.0-0.7) 10^3/uL Baso # (Auto) (0.0-0.1) 10^3/uL Absolute Nucleated RBC x10^3/uL Nucleated RBC % /100WBC Sodium (135-145) mmol/L Potassium (3.5-4.5) mmol/L Chloride (101-111) mmol/L Carbon Dioxide (21-32) mmol/L Anion Gap (6-13) BUN (6-20) mg/dL Creatinine (0.6-1.3) mg/dL Estimated GFR (MDRD) (>89) Glucose (74-104) mg/dL POC Whole Bld Glucose 77 (70 - 100) mg/dL Calcium (8.5-10.3) mg/dL Impression and Recommendations - Palliative Care Impression: This is a 58-year-old gentleman who has had a extended stay hospitalization, related to multiple acute and chronic issues. Patient being treated for osteomyelitis, has significant wounds, acute anemia, noted both cognitive and functional decline. Patient unable to feed himself, not participating and eating, nutritional status continues to worsen. For patient to continue, would need alternative feeding, and PEG tube placement.Patient today presents as nondecisional. Will meet with son tomorrow regarding decisions on the table, including tube feedings, goals of care, CODE STATUS, and quality of life. Recommendations/Counseling Done: 1. Cognitive decline. Patient presents with lethargy and on methadone, known for multiple interactions with medications. Would recommend decreasing methadone further to 2.5 mg twice daily, and transition to short acting oxycodone 5-10 every 4 hours for complaints breakthrough pain to rule out adverse effects related pain management. 2. Anorexia. This appears to be multifactorial, in the context patient unable to feed himself, fluctuating cognitive status, patient unable to report symptoms that may be adding to underlying etiology including presumed stress ulcer. Patient has ready been to started on mirtazapine as well as Megace, no further recommendations. Patient unlikely to meet caloric needs, will need nutritional support, family meeting tomorrow regarding goals of care and question of tube feeding. Will need to follow-up with surgery, regarding risk in the context of his concern for GI bleeding. 3. Advance care planning. No evidence in chart of DPOA or advanced care planning documents. Patient presents with concern for ongoing functional and cognitive decline, worsening quality of life, and high risk for continued multiple hospitalizations and complications. Patient at this time does not present with ability to participate in advance care planning. Patient does present with concern for poor prognosis, though patient 58 years old, does appear older than his stated age. {Patient presents with a palliative care performance status of 20%}. On the [place] index that looks at hospitalized rebecca lts 70 and older and outcome of 1 year mortality, he presents with 10 points, with results > 6 risk of 64% of 1 year mortality. Risk calculators cannot predict the future for any 1 individual but gives an estimate how many people with similar risk factors will live and , but cannot identify who will live and who will . 75 minutes with review of chart, examination and interview of patient, review of labs, imaging, outside notes of wound care, ED reports, pain clinic notes, and introduction to son. Coordination of care with hospitalist. Plan for family conference tomorrow, to further define goals of care.
[2024-01-08 06:04] LABS: BASOPHILS % (AUTO) 0.4 %; EOSINOPHILS # (AUTO) 0.3 10^3/uL (0.0-0.7); EOSINOPHILS % (AUTO) 4.6 %; HCT - HEMATOCRIT 26.8 % (42.0-52.0); HGB - HEMOGLOBIN 8.1 g/dL (14.0-18.0); LYMPHOCYTES % (AUTO) 14.5 %; MEAN CORPUSCULAR HEMOGLOBIN 27.8 pg (27.0-31.0); MEAN CORPUSCULAR HGB CONC 30.2 g/dL (32.0-36.0); MEAN CORPUSCULAR VOLUME 92.1 fL (80.0-94.0); MEAN PLATELET VOLUME 8.8 fL (7.4-11.4); MONOCYTES # (AUTO) 0.7 10^3/uL (0.0-1.0); MONOCYTES % (AUTO) 9.1 %; NEUTROPHILS # (AUTO) 5.1 10^3/uL (1.5-6.6); NEUTROPHILS % (AUTO) 70.7 %; PLT - PLATELET COUNT 405 10^3/uL (130-450); RED BLOOD COUNT 2.91 10^6/uL (4.70-6.10); RED CELL DISTRIBUTION WIDTH 15.3 % (12.0-15.0); WHITE BLOOD COUNT 7.2 x10^3/uL (4.8-10.8)
[2024-01-08 06:30] LABS: BUN - BLOOD UREA NITROGEN 8 mg/dL (6-20); CALCIUM 8.9 mg/dL (8.5-10.3); CARBON DIOXIDE - CO2 24 mmol/L (21-32); CHLORIDE 105 mmol/L (101-111); CREATININE 0.4 mg/dL (0.6-1.3); GFR - MDRD 219 (>89); GLUCOSE 71 mg/dL (74-104); POTASSIUM 3.5 mmol/L (3.5-4.5); SODIUM 141 mmol/L (135-145)
[2024-01-08 06:47] LABS: VANCOMYCIN,TROUGH 29.2 ug/mL
[2024-01-08] MEDS: METHADONE 5 MG TABLET PO SCH (10:14)
--- NOTE | 2024-01-08 11:24 | PHARMACY PROGRESS NOTE ---
- Therapy Status Vancomycin regimen day #: 21 Therapy status: Trough supratherapeutic Basis for treatment: Empirical Treatment indication: OSTEO - ABXS RECOMMENDED BY [facility] ID Trough goal: 400-600 Concurrent antibiotics: CEFEPIME - POP Risk Risk level for Acute Kidney Injury: High Acute Kidney Injury risk factors: Other nephrotoxic agents, Duration >7 days, Goal trough >15, Admission to ICU (PATIENT FOLLOWED BY [facility] ID WHO RECOMMENDED CURRENT ABX REGIMEN) - Monitoring and Recommendation Clinical response to treatment: Lab Results 12/19/23 12:45 BUN 24 H Creatinine 1.2 Estimated GFR (MDRD) 62 L Cultures 12/19/23 13:40 Blood - Right Hand Blood Culture - Final NO GROWTH AFTER 5 DAYS 12/19/23 13:43 Blood - Left Hand Blood Culture - Final NO GROWTH AFTER 5 DAYS Areas for additional monitoring: IV to PO when appropriate, Therapy de- escalation based on culture results, Acute Kidney Injury Pharmacy recommendation: Hold dose (SUPRATHERAPEUTIC LEVEL. HOLD ALL DOSES FOR NOW. RPT RANDOM LEVEL 3/13 AM TO ENSURE CLEARANCE. SCR REMAINS STABLE. I/O REV'D. PATIENT REMAINS AFEBRILE. WBC WNL.)
--- NOTE | 2024-01-08 12:38 | PROVIDER PROGRESS NOTE ---
Subjective - Prog Note Date Prog Note Date: 01/08/24 Prog Note Time: 07:40 - Subjective Pt reports feeling: Improved Subjective: AM blood sugar 69, thickened apple juice given, blood sugar came up to 97. Patient is asymptomatic for hypoglycemia. Per RN Objective - Vital Signs/Intake & Output Vital Signs: Vital Signs Temp Pulse Resp BP Pulse Ox O2 Flow Rate 01/08/24 08:45 36.8 C 125 H 18 128/89 H 96 2 Intake & Output: Intake & Output 01/05/24 01/06/24 01/07/24 01/08/24 22:59 23:59 23:59 23:59 Intake Total 1030 340 Output Total Balance 1030 340 - Lab Results Fish Bones: 01/08/24 05:38 01/08/24 05:38 Other Labs: Lab Results x24hrs 01/08/24 01/08/24 01/08/24 Range/Units 12:04 08:38 07:45 WBC (4.8-10.8) x10^3/uL RBC (4.70-6.10) 10^6/uL Hgb (14.0-18.0) g/dL Hct (42.0-52.0) % MCV (80.0-94.0) fL MCH (27.0-31.0) pg MCHC (32.0-36.0) g/dL RDW (12.0-15.0) % Plt Count (130-450) 10^3/uL MPV (7.4-11.4) fL Neut # (Auto) (1.5-6.6) 10^3/uL Lymph # (Auto) (1.5-3.5) 10^3/uL [place] # (Auto) (0.0-1.0) 10^3/uL Eos # (Auto) (0.0-0.7) 10^3/uL Baso # (Auto) (0.0-0.1) 10^3/uL Absolute Nucleated RBC x10^3/uL Nucleated RBC % /100WBC Sodium (135-145) mmol/L Potassium (3.5-4.5) mmol/L Chloride (101-111) mmol/L Carbon Dioxide (21-32) mmol/L Anion Gap (6-13) BUN (6-20) mg/dL Creatinine (0.6-1.3) mg/dL Estimated GFR (MDRD) (>89) Glucose (74-104) mg/dL POC Whole Bld Glucose 76 97 69 L (70 - 100) mg/dL Calcium (8.5-10.3) mg/dL Last Dose Date Last Dose Time Vancomycin Trough ug/mL 01/08/24 01/08/24 01/07/24 Range/Units 05:38 05:38 20:33 WBC 7.2 (4.8-10.8) x10^3/uL RBC 2.91 L (4.70-6.10) 10^6/uL Hgb 8.1 L (14.0-18.0) g/dL Hct 26.8 L (42.0-52.0) % MCV 92.1 (80.0-94.0) fL MCH 27.8 (27.0-31.0) pg MCHC 30.2 L (32.0-36.0) g/dL RDW 15.3 H (12.0-15.0) % Plt Count 405 (130-450) 10^3/uL MPV 8.8 (7.4-11.4) fL Neut # (Auto) 5.1 (1.5-6.6) 10^3/uL Lymph # (Auto) 1.0 L (1.5-3.5) 10^3/uL [place] # (Auto) 0.7 (0.0-1.0) 10^3/uL Eos # (Auto) 0.3 (0.0-0.7) 10^3/uL Baso # (Auto) 0.0 (0.0-0.1) 10^3/uL Absolute Nucleated RBC 0.00 x10^3/uL Nucleated RBC % 0.0 /100WBC Sodium 141 (135-145) mmol/L Potassium 3.5 (3.5-4.5) mmol/L Chloride 105 (101-111) mmol/L Carbon Dioxide 24 (21-32) mmol/L Anion Gap 12.0 (6-13) BUN 8 (6-20) mg/dL Creatinine 0.4 L (0.6-1.3) mg/dL Estimated GFR (MDRD) 219 (>89) Glucose 71 L (74-104) mg/dL POC Whole Bld Glucose 88 (70 - 100) mg/dL Calcium 8.9 (8.5-10.3) mg/dL Last Dose Date 01/07/24 Last Dose Time 2225 Vancomycin Trough 29.2 H* ug/mL 01/07/24 Range/Units 16:41 WBC (4.8-10.8) x10^3/uL RBC (4.70-6.10) 10^6/uL Hgb (14.0-18.0) g/dL Hct (42.0-52.0) % MCV (80.0-94.0) fL MCH (27.0-31.0) pg MCHC (32.0-36.0) g/dL RDW (12.0-15.0) % Plt Count (130-450) 10^3/uL MPV (7.4-11.4) fL Neut # (Auto) (1.5-6.6) 10^3/uL Lymph # (Auto) (1.5-3.5) 10^3/uL [place] # (Auto) (0.0-1.0) 10^3/uL Eos # (Auto) (0.0-0.7) 10^3/uL Baso # (Auto) (0.0-0.1) 10^3/uL Absolute Nucleated RBC x10^3/uL Nucleated RBC % /100WBC Sodium (135-145) mmol/L Potassium (3.5-4.5) mmol/L Chloride (101-111) mmol/L Carbon Dioxide (21-32) mmol/L Anion Gap (6-13) BUN (6-20) mg/dL Creatinine (0.6-1.3) mg/dL Estimated GFR (MDRD) (>89) Glucose (74-104) mg/dL POC Whole Bld Glucose 91 (70 - 100) mg/dL Calcium (8.5-10.3) mg/dL Last Dose Date Last Dose Time Vancomycin Trough ug/mL Sepsis Event Note (H) - Evaluation Current Stage of Sepsis: Ruled out
--- NOTE | 2024-01-08 13:11 | PROVIDER PROGRESS NOTE ---
Subjective - Prog Note Date Prog Note Date: 01/08/24 Prog Note Time: 01:10 - Subjective Pt reports feeling: Improved Subjective: AM blood sugar 69, thickened apple juice given, blood sugar came up to 97. Patient is asymptomatic for hypoglycemia. Per RN Current Medications - Current Medications Current Medications: Active Medications Acetaminophen (Acetaminophen 325 Mg Tablet) 650 mg PO Q4HR PRN PRN Reason: Pain or Fever > 38C (100.4F) Last Admin: 01/07/24 06:34 Dose: 650 mg Albuterol/Ipratropium (Ipratropium/Albuterol 3 Ml Neb) 3 ml INH Q4HR PRN PRN Reason: Wheezing Last Admin: 01/07/24 06:20 Dose: 3 ml Benzonatate (Benzonatate 100 Mg Capsule) 100 mg PO TID PRN PRN Reason: Cough Last Admin: 01/07/24 20:54 Dose: 100 mg Budesonide (Budesonide 0.5 Mg/2 Ml Neb) 0.5 mg INH RTBID DARCIE Last Admin: 01/08/24 10:28 Dose: Not Given Calcium Carbonate/Glycine (Calcium Carbonate Chew 500 Mg Tablet) 500 mg PO BID DARCIE Last Admin: 01/08/24 08:13 Dose: 500 mg Dextrose (Dextrose 50% Abboject 25 Gm/50 Ml Syringe) 50 ml IVP PRN PRN PRN Reason: if BS<70 Last Admin: 01/04/24 14:04 Dose: 50 ml Fluticasone Propionate (Fluticasone Nasal [place]) 2 sprays MONICA QPM DARCIE Last Admin: 01/07/24 21:04 Dose: Not Given Gabapentin (Gabapentin 300 Mg Capsule) 300 mg PO QPM DARCIE Last Admin: 01/07/24 20:53 Dose: 300 mg Haloperidol (Haloperidol 5 Mg/Ml Vial) 0.5 mg IVP Q6H PRN PRN Reason: Agitation Last Admin: 01/06/24 15:38 Dose: 0.5 mg Cefepime HCl 1 gm/ Sodium (Chloride) 100 mls @ 200 mls/hr IV Q8H [facility] Last Infusion: 01/08/24 08:31 Dose: Infused Insulin Human Lispro (Insulin Lispro 300 Unit/3 Ml Pen) 1 - 9 unit SUBQ 0800,1200,1700,2100 DARCIE; Protocol Last Admin: 01/08/24 12:35 Dose: Not Given Lidocaine (Lidocaine Patch 5%) 1 patch TOP DAILY PRN PRN Reason: Moderate Pain (Level 4-6) Last Admin: 01/06/24 08:02 Dose: 1 patch Megestrol Acetate (Megestrol 400 Mg/10 Ml Udc) 400 mg PO DAILY [facility] Last Admin: 01/08/24 08:13 Dose: 400 mg Methadone HCl (Methadone 5 Mg Tablet) 2.5 mg PO BID [facility] Last Admin: 01/08/24 10:14 Dose: 2.5 mg Mirtazapine (Mirtazapine 15 Mg Tablet) 15 mg PO QPM [facility] Last Admin: 01/07/24 20:54 Dose: 15 mg Morphine Sulfate (Morphine 2 Mg/Ml Carpuject) 1 mg IVP Q6H PRN PRN Reason: Severe Pain (Level 7-10) Last Admin: 01/07/24 20:56 Dose: 1 mg Multivitamins/Minerals (Multivitamin W/Minerals Tablet) 1 tab PO DAILYWM [facility] Last Admin: 01/08/24 08:13 Dose: 1 tab Nitroglycerin (Nitroglycerin Sl 0.4 Mg Tablet) 0.4 mg SL Q5MIN PRN PRN Reason: Chest Pain Ondansetron HCl (Ondansetron 4 Mg/2 Ml Vial) 4 mg IVP Q4HR PRN PRN Reason: Nausea / Vomiting Last Admin: 01/07/24 21:06 Dose: 4 mg Ondansetron HCl (Ondansetron Odt 4 Mg Tablet) 4 mg TL Q4HR PRN PRN Reason: Nausea / Vomiting Pantoprazole Sodium (Pantoprazole 40 Mg Tablet) 40 mg PO BID [facility] Theophylline Anhydrous [ Theophylline Er] 300 Mg Tab.Er.12h 1 each PO BID [facility] Phenol/Menthol (Phenol Throat [place] 177 Ml) 2 sprays MM Q2HR PRN PRN Reason: Throat Pain Last Admin: 12/19/23 22:29 Dose: 2 sprays Polyethylene Glycol (Polyethylene Glycol 3350 17 Gm Packet) 17 gm PO DAILY [facility] Last Admin: 01/08/24 13:13 Dose: 17 gm Saccharomyces Boulardii (Saccharomyces Boulardii 250 Mg Capsule) 250 mg PO BIDWM [facility] Last Admin: 01/08/24 08:13 Dose: 250 mg Sodium Chloride (Sodium Chloride Flush 0.9% 10 Ml Syringe) 10 ml IVP 0100,0900,1700 [facility] Last Admin: 01/08/24 08:31 Dose: 10 ml Sodium Chloride (Sodium Chloride Flush 0.9% 10 Ml Syringe) 10 ml IVP PRN PRN PRN Reason: NEEDED PER PROVIDER ORDERS Last Admin: 01/05/24 09:25 Dose: 10 ml Sucralfate (Sucralfate 1 Gm/10 Ml Udc) 1 gm PO 0700,1100,1600,2200 [facility] Last Admin: 01/08/24 12:35 Dose: Not Given Albuterol Sulfate [Proair Hfa Inhaler] 2 puffs INH Q4H PRN 03/30/18 Fluticasone [Flonase] 1 spray MONICA BID 05/07/21 Gabapentin [Neurontin] 900 mg PO TID 05/07/21 Furosemide [Lasix] 20 mg PO BID 05/25/21 Montelukast [Singulair] 10 mg PO QPM 05/25/21 Methadone [Methadone Hcl] 10 mg PO QDAC 12/19/23 Theophylline Anhydrous [Theophylline ER] 300 mg PO BID 12/19/23 Azithromycin 500 mg PO UD 12/20/23 Beclomethasone Dipropionate [Qvar Redihaler (80 mcg)] 1 puffs INH BID 12/20/23 Budesonide/Formoterol Fumarate [Symbicort 160-4.5 Mcg Inhaler] 2 puffs INH BID 12/20/23 Ferrous Sulfate [Feosol] 325 mg PO DAILY 12/20/23 Fexofenadine HCl 180 mg PO DAILY 12/20/23 Ipratropium [place] 2 spray MONICA TID 12/20/23 Ipratropium/Albuterol [Combivent Respimat] 1 puffs INH QID 12/20/23 Ipratropium/Albuterol [Duoneb] 3 ml PO Q4H PRN 12/20/23 Methadone [Methadone Hcl] 5 mg PO QPM 12/20/23 Multivitamin with Minerals [Multivitamins with Minerals] 1 tab PO DAILY 12/20/23 Nystatin [Mycostatin] 5 ml PO QID 12/20/23 Pantoprazole [Protonix] 40 mg PO BID 12/20/23 Sertraline [Zoloft] 25 mg PO DAILY 12/20/23 Sulfamethox/Trimeth 800/160 [Bactrim Ds] 1 tab PO UD 12/20/23 Umeclidinium [place] [Incruse Ellipta] 1 inh INH DAILY 12/20/23 guaiFENesin [Chest Congestion Relief] 400 mg PO Q6H PRN 12/20/23 Objective - Vital Signs/Intake & Output Vital Signs: Vital Signs - 24 hr 01/07/24 01/07/24 01/07/24 16:59 20:09 22:40 Temperature 37.0 C 37.0 C Heart Rate [ 126 H 128 H Brachial] Respiratory 20 20 Rate Blood Pressure 122/87 H 112/77 [Right Brachial artery] O2 Saturation 96 94 If not protocol 2 2 4 : Oxygen Flow, liters/minute 01/08/24 01/08/24 05:25 08:45 Temperature 37.2 C 36.8 C Heart Rate [ 127 H 125 H Brachial] Respiratory 20 18 Rate Blood Pressure 116/72 128/89 H [Right Brachial artery] O2 Saturation 92 96 If not protocol 2 2 : Oxygen Flow, liters/minute Oxygen O2 Source [With Activity] Nasal cannula O2 Source [Without Activity] Nasal cannula O2 Source Nasal cannula Oxygen Flow Rate 3 Intake & Output: Intake & Output 01/05/24 01/06/24 01/07/24 01/08/24 22:59 23:59 23:59 23:59 Intake Total 1030 400 Output Total Balance 1030 400 - Objective General Appearance: positive: No acute distress, Alert Eyes Bilateral: positive: Normal inspection, No scleral icterus ENT: positive: No signs of dehydration Neck: positive: Nml inspection Respiratory: positive: No respiratory distress, Breath sounds nml Cardiovascular: positive: No murmur, No gallop, Tachycardia Peripheral Pulses: 2+ Radial (R), 2+ Radial (L) Abdomen: positive: Non-tender Rectal: positive: Non-tender Skin: positive: Color nml Extremities: positive: Non-tender Neurologic/Psychiatric: positive: Oriented x3 - Lab Results Fish Bones: 01/08/24 05:38 01/08/24 05:38 Other Labs: Lab Results x24hrs 01/08/24 01/08/24 01/08/24 Range/Units 12:04 08:38 07:45 WBC (4.8-10.8) x10^3/uL RBC (4.70-6.10) 10^6/uL Hgb (14.0-18.0) g/dL Hct (42.0-52.0) % MCV (80.0-94.0) fL MCH (27.0-31.0) pg MCHC (32.0-36.0) g/dL RDW (12.0-15.0) % Plt Count (130-450) 10^3/uL MPV (7.4-11.4) fL Neut # (Auto) (1.5-6.6) 10^3/uL Lymph # (Auto) (1.5-3.5) 10^3/uL [place] # (Auto) (0.0-1.0) 10^3/uL Eos # (Auto) (0.0-0.7) 10^3/uL Baso # (Auto) (0.0-0.1) 10^3/uL Absolute Nucleated RBC x10^3/uL Nucleated RBC % /100WBC Sodium (135-145) mmol/L Potassium (3.5-4.5) mmol/L Chloride (101-111) mmol/L Carbon Dioxide (21-32) mmol/L Anion Gap (6-13) BUN (6-20) mg/dL Creatinine (0.6-1.3) mg/dL Estimated GFR (MDRD) (>89) Glucose (74-104) mg/dL POC Whole Bld Glucose 76 97 69 L (70 - 100) mg/dL Calcium (8.5-10.3) mg/dL Last Dose Date Last Dose Time Vancomycin Trough ug/mL 01/08/24 01/08/24 01/07/24 Range/Units 05:38 05:38 20:33 WBC 7.2 (4.8-10.8) x10^3/uL RBC 2.91 L (4.70-6.10) 10^6/uL Hgb 8.1 L (14.0-18.0) g/dL Hct 26.8 L (42.0-52.0) % MCV 92.1 (80.0-94.0) fL MCH 27.8 (27.0-31.0) pg MCHC 30.2 L (32.0-36.0) g/dL RDW 15.3 H (12.0-15.0) % Plt Count 405 (130-450) 10^3/uL MPV 8.8 (7.4-11.4) fL Neut # (Auto) 5.1 (1.5-6.6) 10^3/uL Lymph # (Auto) 1.0 L (1.5-3.5) 10^3/uL [place] # (Auto) 0.7 (0.0-1.0) 10^3/uL Eos # (Auto) 0.3 (0.0-0.7) 10^3/uL Baso # (Auto) 0.0 (0.0-0.1) 10^3/uL Absolute Nucleated RBC 0.00 x10^3/uL Nucleated RBC % 0.0 /100WBC Sodium 141 (135-145) mmol/L Potassium 3.5 (3.5-4.5) mmol/L Chloride 105 (101-111) mmol/L Carbon Dioxide 24 (21-32) mmol/L Anion Gap 12.0 (6-13) BUN 8 (6-20) mg/dL Creatinine 0.4 L (0.6-1.3) mg/dL Estimated GFR (MDRD) 219 (>89) Glucose 71 L (74-104) mg/dL POC Whole Bld Glucose 88 (70 - 100) mg/dL Calcium 8.9 (8.5-10.3) mg/dL Last Dose Date 01/07/24 Last Dose Time 2225 Vancomycin Trough 29.2 H* ug/mL 01/07/24 Range/Units 16:41 WBC (4.8-10.8) x10^3/uL RBC (4.70-6.10) 10^6/uL Hgb (14.0-18.0) g/dL Hct (42.0-52.0) % MCV (80.0-94.0) fL MCH (27.0-31.0) pg MCHC (32.0-36.0) g/dL RDW (12.0-15.0) % Plt Count (130-450) 10^3/uL MPV (7.4-11.4) fL Neut # (Auto) (1.5-6.6) 10^3/uL Lymph # (Auto) (1.5-3.5) 10^3/uL [place] # (Auto) (0.0-1.0) 10^3/uL Eos # (Auto) (0.0-0.7) 10^3/uL Baso # (Auto) (0.0-0.1) 10^3/uL Absolute Nucleated RBC x10^3/uL Nucleated RBC % /100WBC Sodium (135-145) mmol/L Potassium (3.5-4.5) mmol/L Chloride (101-111) mmol/L Carbon Dioxide (21-32) mmol/L Anion Gap (6-13) BUN (6-20) mg/dL Creatinine (0.6-1.3) mg/dL Estimated GFR (MDRD) (>89) Glucose (74-104) mg/dL POC Whole Bld Glucose 91 (70 - 100) mg/dL Calcium (8.5-10.3) mg/dL Last Dose Date Last Dose Time Vancomycin Trough ug/mL Sepsis Event Note (H) - Evaluation Current Stage of Sepsis: Ruled out Assessment/Plan - Problem List (1) Hypoglycemia Impression: Assessment/Plan: Blood glucose still on the low end's No acute hypoglycemia events, encourage oral intake, palliative care consult for goal of care discussion (2) Acute blood loss anemia Assessment/Plan: Likely due to stress ulcer Appears stable, continue Protonix (3) Right arm weakness Assessment/Plan: Likely due to deconditioning from being intubated and in ICU for days Continue PT OT (4) Acute respiratory failure with hypoxia and hypercapnia Assessment/Plan: Improved, stable Continue oxygen treatment and as needed (5) Heart failure with mid-range ejection fraction (HFmEF) Assessment/Plan: Stable, unchanged for the past 7 days, appears euvolemic (6) Type 2 CT (myocardial infarction) Assessment/Plan: Past acute phase, Give aspirin and Plavix, give beta-ya (7) Osteomyelitis Qualifiers: Osteomyelitis type: other chronic Osteomyelitis location: foot Laterality: right Qualified Code(s): M86.671 - Other chronic osteomyelitis, right ankle and foot Assessment/Plan: Continue cefepime and Vanco for total 6 weeks
[2024-01-08] MEDS: polyethylene glycoL 3350 17 GM PACKET PO SCH (13:13)
--- NOTE | 2024-01-08 13:47 | CONSULTATION NOTE ---
Palliative Care Follow Up - Referral Referring Provider: Dr. Manuel Brooks Time of Visit: 12:30-13:30 pm Referral setting: Hospitalized patient Referral Reason: Goals of Care; Chronic Pain Management - Information Sources Records reviewed: RN notes reviewed, Previous records reviewed History/Review of Systems obtained from: Patient Exam limitations: Other (patient able to participate; STM deficits persist and poor insight) - History of Present Illness Update Brief HPI Update: Please see HPI from 01/07/2024.This is a 58-year-old gentleman, who has had a prolonged hospitalization related to multiple issues, including osteomyelitis needing prolonged IV therapy, recovering from pneumonia and exacerbation of asthma, which included ICU and intubation, significant right heel wound needing wound care. Patient with declining nutritional status secondary to poor intake, patient has been unable to feed himself or participate in conversation regarding question of tube feedings. Patient's methadone had been decreased to 2.5 mg twice daily, patient is much more awake and alert today, still presents with poor insight, short-term memory deficits, but is able to participate in conversation. He is oriented to place, does not recall decline or what led to his hospitalization, but does remember being in the [facility].Patient's son was to meet with palliative care [facility] today, to discuss goals of care, has left a message and canceled. In the context of this, have called back, but patient today is quite clear he does not want any tube feedings when reviewed concerns and adament, does perceive he is quite ill, but his underlying goal is to walk, go to rehab, and return home. Social History - Living Situation Living arrangement: At home Living Situation: With family (Lives with son Tad, intermediate. Patient recently in [facility] for rehab. Has a daughter, has been multiple times. Patient was 20 years in the [facility].) Medications/Allergies - Medications Active Medication List: Active Medications Acetaminophen (Acetaminophen 325 Mg Tablet) 650 mg PO Q4HR PRN PRN Reason: Pain or Fever > 38C (100.4F) Last Admin: 01/07/24 06:34 Dose: 650 mg Albuterol/Ipratropium (Ipratropium/Albuterol 3 Ml Neb) 3 ml INH Q4HR PRN PRN Reason: Wheezing Last Admin: 01/07/24 06:20 Dose: 3 ml Benzonatate (Benzonatate 100 Mg Capsule) 100 mg PO TID PRN PRN Reason: Cough Last Admin: 01/07/24 20:54 Dose: 100 mg Budesonide (Budesonide 0.5 Mg/2 Ml Neb) 0.5 mg INH RTBID [facility] Last Admin: 01/08/24 10:28 Dose: Not Given Calcium Carbonate/Glycine (Calcium Carbonate Chew 500 Mg Tablet) 500 mg PO BID [facility] Last Admin: 01/08/24 08:13 Dose: 500 mg Dextrose (Dextrose 50% Abboject 25 Gm/50 Ml Syringe) 50 ml IVP PRN PRN PRN Reason: if BS<70 Last Admin: 01/04/24 14:04 Dose: 50 ml Fluticasone Propionate (Fluticasone Nasal Preston) 2 sprays MONICA QPM [facility] Last Admin: 01/07/24 21:04 Dose: Not Given Gabapentin (Gabapentin 300 Mg Capsule) 300 mg PO QPM [facility] Last Admin: 01/07/24 20:53 Dose: 300 mg Haloperidol (Haloperidol 5 Mg/Ml Vial) 0.5 mg IVP Q6H PRN PRN Reason: Agitation Last Admin: 01/06/24 15:38 Dose: 0.5 mg Cefepime HCl 1 gm/ Sodium (Chloride) 100 mls @ 200 mls/hr IV Q8H [facility] Last Infusion: 01/08/24 08:31 Dose: Infused Insulin Human Lispro (Insulin Lispro 300 Unit/3 Ml Pen) 1 - 9 unit SUBQ 0800,1200,1700,2100 [facility]; Protocol Last Admin: 01/08/24 12:35 Dose: Not Given Lidocaine (Lidocaine Patch 5%) 1 patch TOP DAILY PRN PRN Reason: Moderate Pain (Level 4-6) Last Admin: 01/06/24 08:02 Dose: 1 patch Megestrol Acetate (Megestrol 400 Mg/10 Ml Udc) 400 mg PO DAILY [facility] Last Admin: 01/08/24 08:13 Dose: 400 mg Methadone HCl (Methadone 5 Mg Tablet) 2.5 mg PO BID [facility] Last Admin: 01/08/24 10:14 Dose: 2.5 mg Mirtazapine (Mirtazapine 15 Mg Tablet) 15 mg PO QPM [facility] Last Admin: 01/07/24 20:54 Dose: 15 mg Morphine Sulfate (Morphine 2 Mg/Ml Carpuject) 1 mg IVP Q6H PRN PRN Reason: Severe Pain (Level 7-10) Last Admin: 01/07/24 20:56 Dose: 1 mg Multivitamins/Minerals (Multivitamin W/Minerals Tablet) 1 tab PO DAILYWM [facility] Last Admin: 01/08/24 08:13 Dose: 1 tab Nitroglycerin (Nitroglycerin Sl 0.4 Mg Tablet) 0.4 mg SL Q5MIN PRN PRN Reason: Chest Pain Ondansetron HCl (Ondansetron 4 Mg/2 Ml Vial) 4 mg IVP Q4HR PRN PRN Reason: Nausea / Vomiting Last Admin: 01/07/24 21:06 Dose: 4 mg Ondansetron HCl (Ondansetron Odt 4 Mg Tablet) 4 mg TL Q4HR PRN PRN Reason: Nausea / Vomiting Pantoprazole Sodium (Pantoprazole 40 Mg Tablet) 40 mg PO BID [facility] Theophylline Anhydrous [ Theophylline Er] 300 Mg Tab.Er.12h 1 each PO BID [facility] Phenol/Menthol (Phenol Throat Preston 177 Ml) 2 sprays MM Q2HR PRN PRN Reason: Throat Pain Last Admin: 12/19/23 22:29 Dose: 2 sprays Polyethylene Glycol (Polyethylene Glycol 3350 17 Gm Packet) 17 gm PO DAILY [facility] Last Admin: 01/08/24 13:13 Dose: 17 gm Saccharomyces Boulardii (Saccharomyces Boulardii 250 Mg Capsule) 250 mg PO BIDWM [facility] Last Admin: 01/08/24 08:13 Dose: 250 mg Sodium Chloride (Sodium Chloride Flush 0.9% 10 Ml Syringe) 10 ml IVP 0100,0900,1700 [facility] Last Admin: 01/08/24 08:31 Dose: 10 ml Sodium Chloride (Sodium Chloride Flush 0.9% 10 Ml Syringe) 10 ml IVP PRN PRN PRN Reason: NEEDED PER PROVIDER ORDERS Last Admin: 01/05/24 09:25 Dose: 10 ml Sucralfate (Sucralfate 1 Gm/10 Ml Udc) 1 gm PO 0700,1100,1600,2200 [facility] Last Admin: 01/08/24 12:35 Dose: Not Given Albuterol Sulfate [Proair Hfa Inhaler] 2 puffs INH Q4H PRN 03/30/18 Fluticasone [Flonase] 1 spray MONICA BID 05/07/21 Gabapentin [Neurontin] 900 mg PO TID 05/07/21 Furosemide [Lasix] 20 mg PO BID 05/25/21 Montelukast [Singulair] 10 mg PO QPM 05/25/21 Methadone [Methadone Hcl] 10 mg PO QDAC 12/19/23 Theophylline Anhydrous [Theophylline ER] 300 mg PO BID 12/19/23 Azithromycin 500 mg PO UD 12/20/23 Beclomethasone Dipropionate [Qvar Redihaler (80 mcg)] 1 puffs INH BID 12/20/23 Budesonide/Formoterol Fumarate [Symbicort 160-4.5 Mcg Inhaler] 2 puffs INH BID 12/20/23 Ferrous Sulfate [Feosol] 325 mg PO DAILY 12/20/23 Fexofenadine HCl 180 mg PO DAILY 12/20/23 Ipratropium Surprise 2 spray MONICA TID 12/20/23 Ipratropium/Albuterol [Combivent Respimat] 1 puffs INH QID 12/20/23 Ipratropium/Albuterol [Duoneb] 3 ml PO Q4H PRN 12/20/23 Methadone [Methadone Hcl] 5 mg PO QPM 12/20/23 Multivitamin with Minerals [Multivitamins with Minerals] 1 tab PO DAILY 12/20/23 Nystatin [Mycostatin] 5 ml PO QID 12/20/23 Pantoprazole [Protonix] 40 mg PO BID 12/20/23 Sertraline [Zoloft] 25 mg PO DAILY 12/20/23 Sulfamethox/Trimeth 800/160 [Bactrim Ds] 1 tab PO UD 12/20/23 Umeclidinium Surprise [Incruse Ellipta] 1 inh INH DAILY 12/20/23 guaiFENesin [Chest Congestion Relief] 400 mg PO Q6H PRN 12/20/23 - Allergies Allergies/Adverse Reactions: Allergies Allergy/AdvReac Type Severity Reaction Status Date / Time aspirin Allergy Unknown Verified 12/19/23 11:33 cyclobenzaprine AdvReac Hallucinati Verified 12/19/23 11:33 [From Flexeril] ons ibuprofen AdvReac Respiratory Verified 12/19/23 11:33 pseudoephedrine AdvReac Unknown Verified 12/19/23 11:33 [From Entex T] Review of Systems - Constitutional Constitutional: reports: Fatigue, Weakness, Poor appetite, Weight loss - Ears, Nose & Throat Ears, Nose & Throat: reports: Dry mouth - Respiratory Respiratory: reports: Other (on oxygen; denies shortness of breath at rest; 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) - Gastrointestinal Gastrointestinal: reports: Poor appetite, Early satiety - Musculoskeletal Musculoskeletal: reports: Back pain, Stiffness, Muscle weakness, Other (up in chair; not ambulatory) - Integumentary Integumentary: reports: Other (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) - Neurological Neurological: reports: Memory problems - Psychiatric Psychiatric: reports: Depression, Anxiety, Aggitation (still yells out to nurses) - Endocrine Endocrine: reports: Diabetes type 2, Intolerance to cold - Hematologic/Lymphatic Hematologic/Lymph: reports: Anemia (has been receiving blood transfusions for GI bleeding), Recurrent infections Physical Exam - Vital Signs Vital Signs: Vital Signs x48h Temp Pulse Resp BP Pulse Ox O2 Flow Rate 01/08/24 08:45 36.8 C 125 H 18 128/89 H 96 2 01/08/24 05:25 37.2 C 127 H 20 116/72 92 2 - Physical Exam General Appearance: positive: Moderate distress, Anxious, Lethargic Eyes Bilateral: positive: Other (difficulty focusing; closing eyes through v isit) Neck: positive: Trachea midline Cardiovascular: positive: Regular rate & rhythm Respiratory: positive: No respiratory distress, Other (oxygen on) Abdomen: positive: Other (flat) Skin: positive: Dryness, Bruising, Other (drsg intact) Extremities: positive: No pedal edema Neurologic/Psychiatric: positive: Disoriented to time, Weakness, Depressed mood/affect Palliative Care - POLST Patient has POLST: No Performance Status: Patient has not been able to dissipate in physical therapy for the last several days, is looking forward to it today. Patient is up in chair, though does sling to the right. Is still needing some assistance with eating. - Palliative Care Discussion: Introduced myself to patient, does not remember our interaction yesterday, was willing to engage. Discussed I was here to talk about how he is doing, and that we had several concerns, particularly about his health and most recently his hospitalization. Patient does understand and says everybody keeps telling me I was almost , she was I was they would quit [place] on this. We discussed he is very sravanthi he is doing as well as he is, and that there are many concerns, particularly for him to be able to get better, would need to start eating and drinking. We discussed in the context of this the decision about tube feedings, patient is quite adamant he does not want tube feedings, we discussed most likely this would impact his goals to be able to get better, particularly healing his wound, as well as to get stronger. He remains again quite adamant that this is not something he would want. He went on to discuss his dad and his decline and from ALS in 1993. He reports he is not a person that wants to be "of life no matter what". I asked if he had had conversations with his children, he reports he did talk to them about his dad, but not himself. He is very clear that if he were to get worse, he does not want to be kept alive, and end-of-life he wants to be home, but on the other hand he has been intubated several times, and reports he would do this again. Tried multiple different ways to approach DNAR, discussed his multiple hospitalizations, and that he has been "a cat with nine lives" but this last time we have been very worried. Asked him who he would like to speak for himself as he was unable to speak for himself yesterday, and he reports again his son Tad. He does think they have a piece of paper or a DPOA, I asked given that he has continued to be hospitalized, that if we could formalize this process, he reports his 2 children argue and fight about things, and this would probably be a good idea.When asked what he worries about most, it is that his kids are going to fight about things at the end of his life, regarding possessions and how to divide things up. I had encouraged him again to have conversations with his children regarding his concerns. Patient's current goals are to walk and get "rehabilitated". Reapproached why concerned that this may not be possible given his ongoing decline with multiple hospitalizations, he does admit that each time he has not gotten much better, and continues to decline. We discussed he would be returning back to [facility] with a PICC line for antibiotics, continue with wound care, but his part would be improving his nutrition and intake, does not appear to have much insight regarding this. But it does not want any "tubes". Called and messaged son with request, brief update left hoping to have further conversation, will see if can meet tomorrow. - Other Findings/Comments Additional Discussion: Patient does recall he has been going to the pain clinic, he really does not "want to be on pain meds, but he wants to be clear. He discussed also though in contrast to this, he has had worsening pain in his back, and making it difficult to walk. Reports his goal is to walk, but has been very difficult with his increased pain.Last reported note has him on methadone 10 mg a.m., and 5 mg p.m., with oxycodone 5 mg 4 times daily for breakthrough. Patient has been decreased to 2.5 mg twice daily with methadone, will most likely benefit from a slow increase, again concerned regarding multiple medication interactions with recent changes, needs to be evaluated regularly with titration. Results - Lab Results Lab results reviewed: Yes Fish Bones: 01/08/24 05:38 01/08/24 05:38 Lab and Imaging Results: Lab Results x24hrs 01/08/24 01/08/24 01/08/24 Range/Units 12:04 08:38 07:45 WBC (4.8-10.8) x10^3/uL RBC (4.70-6.10) 10^6/uL Hgb (14.0-18.0) g/dL Hct (42.0-52.0) % MCV (80.0-94.0) fL MCH (27.0-31.0) pg MCHC (32.0-36.0) g/dL RDW (12.0-15.0) % Plt Count (130-450) 10^3/uL MPV (7.4-11.4) fL Neut # (Auto) (1.5-6.6) 10^3/uL Lymph # (Auto) (1.5-3.5) 10^3/uL Slope # (Auto) (0.0-1.0) 10^3/uL Eos # (Auto) (0.0-0.7) 10^3/uL Baso # (Auto) (0.0-0.1) 10^3/uL Absolute Nucleated RBC x10^3/uL Nucleated RBC % /100WBC Sodium (135-145) mmol/L Potassium (3.5-4.5) mmol/L Chloride (101-111) mmol/L Carbon Dioxide (21-32) mmol/L Anion Gap (6-13) BUN (6-20) mg/dL Creatinine (0.6-1.3) mg/dL Estimated GFR (MDRD) (>89) Glucose (74-104) mg/dL POC Whole Bld Glucose 76 97 69 L (70 - 100) mg/dL Calcium (8.5-10.3) mg/dL Last Dose Date Last Dose Time Vancomycin Trough ug/mL 01/08/24 01/08/24 01/07/24 Range/Units 05:38 05:38 20:33 WBC 7.2 (4.8-10.8) x10^3/uL RBC 2.91 L (4.70-6.10) 10^6/uL Hgb 8.1 L (14.0-18.0) g/dL Hct 26.8 L (42.0-52.0) % MCV 92.1 (80.0-94.0) fL MCH 27.8 (27.0-31.0) pg MCHC 30.2 L (32.0-36.0) g/dL RDW 15.3 H (12.0-15.0) % Plt Count 405 (130-450) 10^3/uL MPV 8.8 (7.4-11.4) fL Neut # (Auto) 5.1 (1.5-6.6) 10^3/uL Lymph # (Auto) 1.0 L (1.5-3.5) 10^3/uL Slope # (Auto) 0.7 (0.0-1.0) 10^3/uL Eos # (Auto) 0.3 (0.0-0.7) 10^3/uL Baso # (Auto) 0.0 (0.0-0.1) 10^3/uL Absolute Nucleated RBC 0.00 x10^3/uL Nucleated RBC % 0.0 /100WBC Sodium 141 (135-145) mmol/L Potassium 3.5 (3.5-4.5) mmol/L Chloride 105 (101-111) mmol/L Carbon Dioxide 24 (21-32) mmol/L Anion Gap 12.0 (6-13) BUN 8 (6-20) mg/dL Creatinine 0.4 L (0.6-1.3) mg/dL Estimated GFR (MDRD) 219 (>89) Glucose 71 L (74-104) mg/dL POC Whole Bld Glucose 88 (70 - 100) mg/dL Calcium 8.9 (8.5-10.3) mg/dL Last Dose Date 01/07/24 Last Dose Time 2225 Vancomycin Trough 29.2 H* ug/mL 01/07/24 Range/Units 16:41 WBC (4.8-10.8) x10^3/uL RBC (4.70-6.10) 10^6/uL Hgb (14.0-18.0) g/dL Hct (42.0-52.0) % MCV (80.0-94.0) fL MCH (27.0-31.0) pg MCHC (32.0-36.0) g/dL RDW (12.0-15.0) % Plt Count (130-450) 10^3/uL MPV (7.4-11.4) fL Neut # (Auto) (1.5-6.6) 10^3/uL Lymph # (Auto) (1.5-3.5) 10^3/uL Slope # (Auto) (0.0-1.0) 10^3/uL Eos # (Auto) (0.0-0.7) 10^3/uL Baso # (Auto) (0.0-0.1) 10^3/uL Absolute Nucleated RBC x10^3/uL Nucleated RBC % /100WBC Sodium (135-145) mmol/L Potassium (3.5-4.5) mmol/L Chloride (101-111) mmol/L Carbon Dioxide (21-32) mmol/L Anion Gap (6-13) BUN (6-20) mg/dL Creatinine (0.6-1.3) mg/dL Estimated GFR (MDRD) (>89) Glucose (74-104) mg/dL POC Whole Bld Glucose 91 (70 - 100) mg/dL Calcium (8.5-10.3) mg/dL Last Dose Date Last Dose Time Vancomycin Trough ug/mL Impression and Recommendations - Palliative Care Impression: This is a 58-year-old gentleman who has had extended stay hospitalization resolved to multiple acute chronic issues. Patient is being treated for osteomyelitis, wounds, anemia, does present with both cognitive and functional decline. Patient still difficulty with feeding himself, but is more alert and participatory in conversation today, patient able to express values and still remains with concern for nuances of more complex medical decision making. Unfortunately his son canceled for family conference today, have left multiple messages and trying to follow-up. Recommendations/Counseling Done: 1. Protein calorie malnutrition. Patient will continue to be challenged to meet his caloric needs, patient able to express that he does not want tube feedings, has had them in the past, does have some understanding in the context of what is involved. Patient though does not have insight into his decreased intake, caloric needs, or impact on healing. Patient does feel like he is able to eat, will need close monitoring, and most likely oral supplementation. Patient is currently on mirtazapine as well as Megace, most likely does not did not need to be on both, would recommend mirtazapine over the Megace. 2. Acute on chronic pain. Patient is being followed by the [facility] pain clinic, have titrated back methadone to 2.5 mg twice a day, most likely will need to be titrated back up, last dosing was 10 mg a.m. and 5 mg p.m. Given multiple medications for and concern for further interactions, would titrate every 5 to 7 days x 2.5 mg. Patient can use oxycodone for 5 to 10 mg for breakthrough pain, as this is short acting, and less likely to to confusion and still provide adequate pain relief. 3. Advance care planning would recommend solidify DPOA, patient has expressed both in his confusion and now clear her in the context that he would like his son Tad to be his decision-maker. This may already exist, but given opportunity to solidify this, would move forward with this. Patient does exp ress more comfort related goals, does understand he is in poor health, is hoping for the best, as far as being able to "walk again and be out and about". Did initiate conversation regarding DNAR and POLST, patient with conflicting information, patient's long-term goals for end-of-life are to be at home with his family, and not to have his suffering extended. Attempted to contact son for further clarification and to inform of plan, will try again tomorrow 60 minutes with review of chart, follow-up with hospitalist, interview with patient, attempting to communicate with his son, and coordination of care with team.
[2024-01-08] MEDS: PANTOPRAZOLE 40 MG TABLET PO SCH (20:34)
[2024-01-09 05:39] LABS: BASOPHILS % (AUTO) 0.5 %; EOSINOPHILS # (AUTO) 0.3 10^3/uL (0.0-0.7); EOSINOPHILS % (AUTO) 3.6 %; HCT - HEMATOCRIT 27.6 % (42.0-52.0); HGB - HEMOGLOBIN 8.3 g/dL (14.0-18.0); LYMPHOCYTES % (AUTO) 11.7 %; MEAN CORPUSCULAR HGB CONC 30.1 g/dL (32.0-36.0); MEAN CORPUSCULAR VOLUME 93.2 fL (80.0-94.0); MEAN PLATELET VOLUME 8.7 fL (7.4-11.4); MONOCYTES # (AUTO) 0.7 10^3/uL (0.0-1.0); MONOCYTES % (AUTO) 8.2 %; NEUTROPHILS # (AUTO) 6.7 10^3/uL (1.5-6.6); NEUTROPHILS % (AUTO) 75.4 %; PLT - PLATELET COUNT 393 10^3/uL (130-450); RED BLOOD COUNT 2.96 10^6/uL (4.70-6.10); RED CELL DISTRIBUTION WIDTH 15.2 % (12.0-15.0); WHITE BLOOD COUNT 8.8 x10^3/uL (4.8-10.8)
[2024-01-09 06:05] LABS: CALCIUM 9.3 mg/dL (8.5-10.3); CREATININE 0.6 mg/dL (0.6-1.3); POTASSIUM 3.6 mmol/L (3.5-4.5)
--- NOTE | 2024-01-09 07:28 | Discharge Plan ---
Discharge Plan for SNF / COURTNEY - Discharge Plan And Transition Orders Problem Reviewed?: Yes Disposition: 03 SNF DC/Xfer Condition: Fair Allergies and Adverse Reactions: Allergies Allergy/AdvReac Type Severity Reaction Status Date / Time aspirin Allergy Unknown Verified 12/19/23 11:33 cyclobenzaprine AdvReac Hallucinati Verified 12/19/23 11:33 [From Flexeril] ons ibuprofen AdvReac Respiratory Verified 12/19/23 11:33 pseudoephedrine AdvReac Unknown Verified 12/19/23 11:33 [From Entex T] Health Concerns: 58-year-old gentleman admitted December 19 from [facility]. He was there for rehab stay. He has multiple visits to our emergency room with 4 admissions to the hospital between June of last year and now. To [facility]. Into her at [facility] with the last month [facility] being November 19 for local cellulitis, acute respiratory failure, pressure ulcer of the sacral region stage IV, and influenza and pneumonia. While [facility] he developed shortness of breath, became obtunded and tachycardic. He came to the emergency room and he was found to have acute respiratory failure with hypoxia and hypercarbia, COPD with exacerbation, chronic diabetic ulcers with osteomyelitis of the toes. He was intubated for his respiratory failure, extubated December 28. He is very weak, and within already decreased functional status, weakness was worse with his intubation and stay in the ICU. He has been treated for acute blood loss anemia thought to be from gastric ulcer. EGD was discussed and surgery and anesthesia felt the patient was to be medically ma naged. After extubation patient was been very slow to wrist cover and we realized that methadone initiated on October 16 may be causing excessive sedation. Once that was discontinued the patient was quite alert and participating in his care plan by January 07. We have been struggling with how to get him to eat. The patient was on tube feeds while he was intubated. However since extubation he has been refusing to eat. While he does not address the issue directly, he makes indirect statements of "I am tired of all of this", "maybe it is time for me to get out of this place". We have tried to meet with his son and default DPOA. However we have been unable to meet with him since he has canceled the last 2 visits with palliative care. Patient is now stable to return to rehab with continued treatment of his osteomyelitis. The issue of getting him to eat will remain problematic. Plan of Treatment: 1. Completion of osteomyelitis treatment 2. Palliative care will continue to follow the patient in the outpatient setting and continue to try and meet with his son to establish: -Resuscitation status. Patient is currently full code. Patient continues to st ate that he does not want to be reintubated again. Over a year ago he was intubated for COVID and ended up with a tracheostomy. He does not want to repeat that experience. -Establish care goals for this patient. If he does not want to eat, he may gradually and eventually due to lack of nourishment 3. Continue physical rehab in the hopes of increasing strength and mobility to allow him to ambulate without assistance, and complete his activities of daily living with regards to dressing himself, feeding himself, and bathing himself. Care Goals: Patient states he would just like to go home. Assessment: He is oriented to person, and place but not time or situation. He is able to communicate for himself and describe any discomfort he is having. - SNF / [facility] Transition Orders Admit to (Facility): [facility] Discharge Diagnosis: 1. Acute respiratory failure with hypoxia and hypercapnia 2. COPD with exacerbation 3. Acute heart failure with midrange ejection fraction 4. Osteomyelitis of the foot 5. Right arm weakness after extubation, MRI negative 6. Type II [place] 7. Acute blood loss anemia presumed to be from stress ulcer 8. Anorexia 9. Hypoglycemia 10. Cognitive deficits Medicare Certification Statement: I certify that Post Hospital fdc care is medically necessary on a continuing basis for any of the conditions for which she/he is receiving care during hospitalization. Notify PCP of admission and forward orders to primary provider for signature. Weight on admission and: Weekly Other Notification Orders: Call PCP immediately if patient develops dyspnea, chest pain/tightness or edema. House Bowel Program: Yes Additional Bowel Program Orders: If no BM after 2 days, nurse may give M.O.M. 30ml PO PRN and/or ducolax Supp 1 DC and/or [place] 250mg P.O., and/or senna 1-2 tabs PO. On day 3 nurse may give repeat above order until residents constipation is resolved. Annual Influenza Vaccine (between Jun 29 and January 26): Yes Two-step PPD per [facility] [phone] or approved exception documents: Yes Oxygen Orders: Maintain O2 sats greater than 89%. Medication Orders: PLEASE REFER TO THE DISCHARGE MEDICATION LIST. Insulin Orders?: No - Medications New Prescriptions: cefTAZidime [Ceftazidime] 1 gm IVP Q8HR 21 Days #63 ml Vancomycin Inj [Vancomycin Hcl] 750 mg IV Q12H #42 ml - Diet Type: Geriatric Texture: Regular Liquids: Thin
--- NOTE | 2024-01-09 10:45 | PHARMACY PROGRESS NOTE ---
- Therapy Status Vancomycin regimen day #: 22 Therapy status: Trough therapeutic Basis for treatment: Empirical Treatment indication: OSTEO Trough goal: 400-600 Concurrent antibiotics: CEFEPIME - POP Risk Risk level for Acute Kidney Injury: High Acute Kidney Injury risk factors: Other nephrotoxic agents, Duration >7 days, Goal trough >15, Admission to ICU (PATIENT FOLLOWED BY [facility] ID WHO RECOMMENDED CURRENT ABX REGIMEN) - Monitoring and Recommendation Clinical response to treatment: Lab Results 12/19/23 12:45 BUN 24 H Creatinine 1.2 Estimated GFR (MDRD) 62 L Cultures 12/19/23 13:40 Blood - Right Hand Blood Culture - Final NO GROWTH AFTER 5 DAYS 12/19/23 13:43 Blood - Left Hand Blood Culture - Final NO GROWTH AFTER 5 DAYS Areas for additional monitoring: IV to PO when appropriate, Therapy de- escalation based on culture results, Acute Kidney Injury Pharmacy recommendation: Decrease dose (RPT RANDOM LEVEL THIS AM = THERAPEUTIC. DECREASE DOSE TO 750 MG Q12H. PRIOR TROUGHS HAVE BEEN SUPRATHERAPEUTIC ON 1G Q12H DESPITE STABLE SCR AND I/O. START LOWER DOSE TONIGHT, 01/08 PM, TO ALLOW LEVEL TO COME DOWN. ANTICIPATE DISCHARGE TOMORROW.)
[2024-01-09] MEDS: DOCUSATE SODIUM 250 MG CAPSULE PO SCH (16:48)
[2024-01-09] MEDS: SENNA 8.6 MG TABLET PO SCH (16:48)
--- NOTE | 2024-01-09 19:34 | PROVIDER PROGRESS NOTE ---
Progress Note January 09, 2024 4 PM Continues to eat none of his food or may be for 5 bites. He denies dysphagia. Odynophagia. Denies any chest pain. He tells me is not about the smell, or the texture. He says that he does not find hospital food to be great to begin with but it is not terrible. Palliative care note read and appreciated. I am reviewing the chart today because I am trying to figure out what antibiotic this patient is clinical to the [facility] with. Cefepime does not appear to be covered by his insurance plan. And I am looking at ceftazidime. This then led me to look for the cultures for the bone and I cannot find them. Looking at the history, he has a right heel ulcer since June 2023. Treated with several rounds of antibiotics. Noted increased erythema that was spreading up his right leg November 17. The wound always has drainage. Was seen by infectious disease on November 19 in the clinic and instructed to go to the emergency room which was [facility]. He was admitted for foot ulcer and cellulitis of the right heel and started on vancomycin and cefepime. MRI confirmed out early osteomyelitis. Of the calcaneus. Underwent debridement November 20. Initially he was treated for only 10 days due to low suspicion for osteo-. He then developed hospital-acquired pneumonia and started on cefepime and Vanco. He then developed influenza and was treated with oseltamivir. After this treatment, he was sent to a [facility] with a wound VAC for the right heel. He was to be nonweightbearing. It looks like his discharge date was December 06. From there he went to a [facility] for wound care and rehab. He was at [facility] and then admitted here December 19. He was getting wound care through her wound clinic. With a December 19 visit [address] wound care [address] Brown, he debrided his heel ulcers and sent bone off for sample. We awaited the bone culture results. The patient was brought here from [facility] because of respiratory failure. He ended up being intubated and being treated for probable facility acquired pneumonia in an immunocompromised patient who recently had antibiotics and recently treated for pneumonia. It is not clear but in reviewing the notes between December 31 and January 01 the decision was made to place a PICC line and give 6 weeks of antibiotic therapy for osteomyelitis. But there is no discussion documented with Dr. Kearney nor is there discussion of the bone biopsy results. Exam: Temperature is 37. Heart rate 92. Respirations 20. He is 98% saturated on 1 L nasal cannula. Yesterday he was on 2 L nasal cannula. Very pleasant, disheveled appearing gentleman. Looks stated age. Oriented to person, place, but not time. Does not directly tell me why he is here just tells me "I was sick". Shotty neck adenopathy. Clear lungs. No tachypnea. Burst of tachycardia today. Regular rate and rhythm. He appears not to have any symptoms with this. Abdomen is soft, nontender. Normal bowel sounds. Extremities with trace edema. He was able to work with physical therapy yesterday. They needed to use a Kori left to transfer him. He participated. Today PT was unable to work with him. He has the wrist drop since he has been extubated. The right foot is covered in a bandage. Lab: BMP is normal today. Glucose is 75 and 89. Calcium 9.3. White cell count is normal at 8.8. Hemoglobin 8.3. Platelets 393. Respiratory culture from December 27 with Latrice albicans and Pseudomonas. Stool culture from December 27 is negative for Salmonella, Shigella, Campylobacter, and E. coli Shiga toxin. Blood cultures from December 19 is negative. Assessment/Plan - Problem List (1) Hypoglycemia Assessment/Plan: This gentleman has been refusing to eat for several days. He will only eat a few bites. No clear reason why. And he will not tell us. He was on temporary tube feeds. Refuses to go back on tube feeds. Palliative care has been helping us carefully negotiate the dynamic between he, his son, and future planning. I suspect that his hypoglycemia is strictly from not eating. He is not on long- acting insulin. He gets short acting insulin to cover his sugars but has not received any insulin since December 30. At this time I will be moving forward with transferring him to the [facility]. He has been very clear about stating he does not want us to force feed him. (2) Acute blood loss anemia Assessment/Plan: Likely due to stress ulcer. Transfused 1 unit of blood. Has not required any further transfusions. Appears stable, continue Protonix (3) Right arm weakness Assessment/Plan: Likely due to deconditioning from being intubated and in ICU for days. Radiology evaluation was done of his brain. There is no stroke. It appears to be more of a wrist drop. Continue PT OT (4) Acute respiratory failure with hypoxia and hypercapnia Assessment/Plan: Resolved. This gentleman has chronic hypoxemia and is usually on 2 L in the ou tpatient setting. He came back down to his baseline 2 L as of January 07. Continue oxygen treatment and as needed (5) Heart failure with mid-range ejection fraction (HFmEF) Assessment/Plan: Stable, unchanged for the past 7 days, appears euvolemic (6) Type 2 AK (myocardial infarction) Assessment/Plan: Past acute phase, Give aspirin and Plavix, give beta-ya (7) Osteomyelitis Qualifiers: Osteomyelitis type: other chronic Osteomyelitis location: foot Laterality: right Qualified Code(s): M86.671 - Other chronic osteomyelitis, right ankle and foot Assessment/Plan: Continue cefepime and Vanco for total 6 weeks I will call Dr. Kearney tomorrow. I really do need to document the bone biopsy results. See if I can get a copy of them. And discuss with her whether I can switch to ceftazidime since cefepime is not covered.I am monitoring his vancomycin levels. Vancomycin trough was 29 on January 06. We skipped a dose and random level was 17 today. He will be getting a Vanco dose tonight. I am sending copies of the prescriptions to the infusion pharmacy that would handle this patient in the [facility]. Wanting to verify that his medications will be covered.
[2024-01-09] MEDS: SODIUM CHLORIDE 0.9% IV SCH (20:26)
[2024-01-09] MEDS: VANCOMYCIN IV SCH (20:26)
[2024-01-10 06:01] LABS: BASOPHILS % (AUTO) 0.6 %; EOSINOPHILS # (AUTO) 0.3 10^3/uL (0.0-0.7); EOSINOPHILS % (AUTO) 4.8 %; HCT - HEMATOCRIT 25.3 % (42.0-52.0); HGB - HEMOGLOBIN 7.4 g/dL (14.0-18.0); LYMPHOCYTES # (AUTO) 0.9 10^3/uL (1.5-3.5); LYMPHOCYTES % (AUTO) 13.5 %; MEAN CORPUSCULAR HGB CONC 29.2 g/dL (32.0-36.0); MEAN CORPUSCULAR VOLUME 95.8 fL (80.0-94.0); MONOCYTES # (AUTO) 0.4 10^3/uL (0.0-1.0); MONOCYTES % (AUTO) 5.7 %; NEUTROPHILS # (AUTO) 5.2 10^3/uL (1.5-6.6); PLT - PLATELET COUNT 310 10^3/uL (130-450); RED BLOOD COUNT 2.64 10^6/uL (4.70-6.10); RED CELL DISTRIBUTION WIDTH 15.6 % (12.0-15.0); WHITE BLOOD COUNT 6.9 x10^3/uL (4.8-10.8)
[2024-01-10 06:41] LABS: CALCIUM 9.2 mg/dL (8.5-10.3); CREATININE 0.6 mg/dL (0.6-1.3); POTASSIUM 3.1 mmol/L (3.5-4.5)
--- NOTE | 2024-01-10 11:24 | Discharge Plan ---
Discharge Plan for SNF / COURTENY - Discharge Plan And Transition Orders Disposition: 03 SNF DC/Xfer Condition: Fair Allergies and Adverse Reactions: Allergies Allergy/AdvReac Type Severity Reaction Status Date / Time aspirin Allergy Unknown Verified 12/19/23 11:33 cyclobenzaprine AdvReac Hallucinati Verified 12/19/23 11:33 [From Flexeril] ons ibuprofen AdvReac Respiratory Verified 12/19/23 11:33 pseudoephedrine AdvReac Unknown Verified 12/19/23 11:33 [From Entex T] Health Concerns: 58-year-old gentleman admitted December 19 from [facility]. He was there for rehab stay. He has multiple visits to our emergency room with 4 admissions to the hospital between June of last year and now. To [facility]. Into [facility] at [facility] with the last month [facility] being November 19 for local cellulitis, acute respiratory failure, pressure ulcer of the sacral region stage IV, and influenza and pneumonia. While [facility] he developed shortness of breath, became obtunded and tachycardic. He came to the emergency room and he was found to have acute respiratory failure with hypoxia and hypercarbia, COPD with exacerbation, chronic diabetic ulcers with osteomyelitis of the toes. He was intubated for his respiratory failure, extubated December 28. He is very weak, and within already decreased functional status, weakness was worse with his intubation and stay in the ICU. He has been treated for acute blood loss anemia thought to be from gastric ulcer. EGD was discussed and surgery and anesthesia felt the patient was to be medically managed. After extubation patient was been very slow to wrist cover and we realized that methadone initiated on October 16 may be causing excessive sedation. Once that was discontinued the patient was quite alert and participating in his care plan by January 07. We have been struggling with how to get him to eat. The patient was on tube feeds while he was intubated. However since extubation he has been refusing to eat. While he does not address the issue directly, he makes indirect statements of "I am tired of all of this", "maybe it is time for me to get out of this place". We have tried to meet with his son and default DPOA. However we have been unable to meet with him since he has canceled the last 2 visits with palliative care. Patient is now stable to return to rehab with continued treatment of his osteomyelitis. The issue of getting him to eat will remain problematic. Plan of Treatment: 1. Completion of osteomyelitis treatment 2. Palliative care will continue to follow the patient in the outpatient setting and continue to try and meet with his son to establish: -Resuscitation status. Patient is currently full code. Patient continues to state that he does not want to be reintubated again. Over a year ago he was intubated for COVID and ended up with a tracheostomy. He does not want to repeat that experience. -Establish care goals for this patient. If he does not want to eat, he may gradually and eventually due to lack of nourishment 3. Continue physical rehab in the hopes of increasing strength and mobility to allow him to ambulate without assistance, and complete his activities of daily living with regards to dressing himself, feeding himself, and bathing himself. Care Goals: Patient states he would just like to go home. Assessment: He is oriented to person, and place but not time or situation. He is able to communicate for himself and describe any discomfort he is having. - SNF / COURTNEY Transition Orders Admit to (Facility): [facility] Under the care of (Name): Humberto Reeves Medicare Certification Statement: I certify that [facility] fdc care is medically necessary on a continuing basis for any of the conditions for which she/he is receiving care during hospitalization. Notify PCP of admission and forward orders to primary provider for signature. Other Notification Orders: Call PCP immediately if patient develops dyspnea, chest pain/tightness or edema. Additional Bowel Program Orders: If no BM after 2 days, nurse may give M.O.M. 30ml PO PRN and/or ducolax Supp 1 ID and/or [place] 250mg P.O., and/or senna 1-2 tabs PO. On day 3 nurse may give repeat above order until residents constipation is resolved. Medication Orders: PLEASE REFER TO THE DISCHARGE MEDICATION LIST. - Medications New Prescriptions: Cefepime 1 gm IV Q8H 30 Days #45 ml Megestrol [Megace] 400 mg PO DAILY 7 Days ea Methadone [Methadone Hcl] 2.5 mg PO BID #7 tab Vancomycin Inj [Vancomycin Hcl] 750 mg IV Q12H #42 ml - Diet Type: Geriatric
[2024-01-10 11:49] VITALS: BP 117/74; O2SAT 96
--- NOTE | 2024-01-10 16:14 | DISCHARGE SUMMARY ---
Discharge Summary Admit Date: 12/19/23 Discharge Date: 01/10/24 Discharging Provider: Lisset Jorge MD Primary Care Provider: Humberto Banda Code Status: Attempt Resuscitation Condition at Discharge: Fair Discharge Disposition: SNF DC/Xfer - DIAGNOSES Discharge Diagnoses with Status of Each Condition: 1. Acute respiratory failure with hypoxia and hypercapnia 2. COPD with exacerbation 3. Acute heart failure with midrange ejection fraction 4. Osteomyelitis of the foot 5. Right arm weakness after extubation, MRI negative 6. Type II IN 7. Acute blood loss anemia presumed to be from stress ulcer 8. Anorexia 9. Hypoglycemia 10. Cognitive deficits 11. Severe persistent asthma with acute exacerbation 12. Obstructive sleep apnea 13. Chronic pain 14. Hypertension 15. Pneumonia 16. On mechanically assisted ventilation 17. Hematochezia - HPI History of Present Illness: This is a 58-year-old male with a history of asthma, HTN, sleep apnea on CPAP, he is on Methadone maintenance, has diabetes with a diabetic foot ulcer that is followed at the [facility] and the last note from Dr Brown was just yesterday stating this was osteomyelitis. He is also followed by Dr. Kearney of infectious disease at [facility]. The patient was at [facility] for rehab after an unknown hospitalization somewhere else and today he developed shortness of breath and staff also noted he was obtunded and tachycardic. He was brought to the ER wheezing, drowsy, and an ABG showed pH 7.37, pCO2 70, pO2 60 with saturation 88% and he was put on BiPAP. Other workup showed that he has a PNA by CXR. He received IV saline bolus 500 cc for the high heart rate of 140- 150. WBC 11.5. BUN/creat 24/1.2, K 3.2. Blood cultures were drawn and he received iv cefepime and iv azithromycin. A head CT was done that showed no acute findings. The ED provider spoke to Dr. Kearney of infectious disease who recommended that he be put on IV Vanco, cefepime and doxycycline while he is here. The ED provider then spoke to me on the Hospitalist team. This patient will be admitted to the ICU needing BiPAP and needing management of his acute respiratory failure with hypoxia and hypercarbia, with an asthma/COPD exacerb ation with pneumonia and needing treatment of his chronic diabetic foot ulcers/osteomyelitis. Patient was obtunded in ER and could give no history. Upon admission to the ICU, he is slightly more awake and knows no history, says that he lives at home with his son and is not at [facility], he does not know if he was hospitalized before being at [facility]. He claims he takes no medications at all for his diabetes. He does not know any other past medical history. He is currently having rigors and denies any pain. His CODE STATUS could not be discussed with him because of his obtundation and now his confusion. There is no POLST scanned into this EMR. Therefore, by default he will be a Full Code. - Past Medical History Cardiovascular: reports: Hypertension Respiratory: reports: Asthma, Sleep apnea, CPAP use Neuro: reports: None Endocrine/Autoimmune: reports: Type 2 diabetes GI: reports: GERD : reports: Kidney stones HEENT: reports: None Psych: reports: None Musculoskeletal: reports: Chronic back pain Derm: reports: Other (Has chronic diabetic foot ulcers, has toe amputations) MRSA Hx?: No - Past Surgical History General: reports: Colonoscopy HEENT: reports: Other Derm: reports: Other (toe amputations) - CONSULTS | PROCEDURES Procedures: Multiple chest x-rays preintubation and postextubation. January 05 with interstitial type infiltrates improving over the course of time. MRI of the brain done because of right arm weakness After intubation, and he had no acute infarction, no acute intracranial bleed, no midline shift or mass effect. Cervical spine CT done because of the bilateral upper extremity weakness and he has no acute fracture or traumatic malalignment. Moderate multilevel cervical spondylosis without evidence of severe spinal canal stenosis Head CT was done twice during his stay and there is no acute intracranial proces s identified Peripheral smear was reviewed because of anemia and leukocytes, erythrocytes and platelets are morphologically normal. No schistocytes. Echocardiogram December 20 had normal LV size and systolic function with an ejection fraction of 45 to 50%. Dilated RV with reduced systolic function. Mild mitral regurg. Blood cultures on admission were negative on December 19. Stool cultures for Salmonella, Shigella, Campylobacter and E. coli Shiga were - December 27. Sputum aspirate on December 27 positive for Latrice albicans, Pseudomonas aeruginosa. Transfusion of 1 unit of blood - HOSPITAL COURSE Hospital Course: The patient ended up being intubated for his respiratory failure and pneumonia. If eventually extubated December 28. While in the ICU he had a type II IN due to severe anemia. He has a presumed stress ulcer and EGD was discussed. However it was decided that most likely this patient has a stress ulcer and he was treated empirically with proton pump inhibitors, transfusion. Discussion ensued about his "osteomyelitis". He had an MRI suggestive of osteomyelitis in October. He has been followed by the wound clinic here at our hospital. He had a subsequent admission to [facility]. And he was discharged to [facility]. It is still at [facility] that he came to us with his respiratory failure, pneumonia, severe exacerbation of his asthma. And the subsequent complications thereof noted. Infectious disease was contacted, Dr. Kearney from [facility]. She is spoken to the wound clinic physician on December 19. He described an ulcer that went to the bone on his foot. When she was taking care of him in October, even though the MRI was suggestive of osteomyelitis, the ulcer was not down to the bone. She now felt that the patient does have osteomyelitis and discussion with the wound clinic physician and both of them felt he should be treated for osteomyelitis for up to 6 weeks of antibiotic therapy which will and approximately January 29. The patient developed significant anorexia while here. Although he was an alert, cooperative gentleman, off-and-on cheerful and off-and-on cranky, he was consistent in his message that he wanted to avoid all of these procedures. . His father had ALS as well. And he did not want to end up that way. As such he did not want intubation again. He also did not want to eat. He had anorexia. Treatment consisted of Remeron, Megace without any success. Palliative care was consulted. Palliative care did attempt to meet with his son since the patient has some cognitive deficits and palliative care wanted to speak to the DPOA. However the son was unable to keep the appointments made. As such we have been honoring the patient's wishes and we do offer him food but do not force him to eat. He has developed hypoglycemia because of this. When he does eat glucose does go up. Patient was felt stable from an acute medical perspective to go back to the [facility] to complete his antibiotics. Knowing that he may have poor wound healing due to anorexia and refusal to eat. He has a chronic anemia and will need iron. Cefepime and vancomycin should be continued. He should have intermittent Vanco troughs. While here his Vanco trough was high for a day and Vanco dosing was held for 2 doses. We also found that the methadone dosing that he came in on may have been excessive. He was very sedated even after extubation. Once he stopped the methadone he was quite awake and alert by January 07. Will resume methadone at 2.5 mg p.o. twice daily. He was discharged in stable condition. Alert, oriented to place, person, somewhat to situation. He does have forgetfulness. Repetitiveness. Temperature was 36.6, heart rate 79, blood pressure 117/74. Respirations 17. 1 L resulted in 96% saturation. He is a 6 foot tall gentleman who is 60 kg. Today he actually ate 75% of his food. Morning glucose was 96, prelunch glucose 122. Shotty neck adenopathy. Clear lungs with unlabored respiration. Diminished at the bases. Regular rate and rhythm. Midmorning he became agitated about the idea of being forced to do something he did not want a do, and he also wanted to eat [place] fried [place]. That resulted in a heart rate of 122 that came back down once he calmed down. Abdomen was soft, nontender. Extremities show the osteomyelitis of the right foot with no surrounding redness or heat of the skin. He is supposed to be nonweightbearing for the affected foot. He needs to be followed by the wound clinic on a regularly scheduled basis as before. He is weak enough that he needs a Kori lift to transfer him from bed to chair. He is a skilled two-person assist to scoot forward in the chair and needs instructions for scooting techniques and he follows commands. He has good balance while sitting. The right upper extremity is flaccid originating from the shoulder and has been present since extubation. MRI of the head was negative. He also has a left wrist drop. In addition to the antibiotic [facility] at the [facility] he would benefit with continued rehab. Greater than 30 minutes was spent coordinating discharge This document was made in part using voice recognition software. While efforts are made to proofread this document, sound alike and grammatical errors may occur. - ALLERGIES Allergies/Adverse Reactions: Allergies Allergy/AdvReac Type Severity Reaction Status Date / Time aspirin Allergy Unknown Verified 12/19/23 11:33 cyclobenzaprine AdvReac Hallucinati Verified 12/19/23 11:33 [From Flexeril] ons ibuprofen AdvReac Respiratory Verified 12/19/23 11:33 pseudoephedrine AdvReac Unknown Verified 12/19/23 11:33 [From Entex T] - MEDICATIONS Home Medications: Ambulatory Orders Medication Instructions Recorded Confirmed Albuterol Sulfate [Proair Hfa 2 puffs INH Q4H PRN 03/30/18 12/20/23 Inhaler] Ipratropium/Albuterol [Duoneb] 3 ml PO Q4H PRN 12/20/23 12/20/23 Multivitamin with Minerals 1 tab PO DAILY 12/20/23 12/20/23 [Multivitamins with Minerals] guaiFENesin [Chest Congestion 400 mg PO Q6H PRN 12/20/23 12/20/23 Relief] Vancomycin Inj [Vancomycin Hcl] 750 mg IV Q12H #42 ml 01/09/24 Acetaminophen [Tylenol] 650 mg PO Q4HR PRN tab 01/10/24 Beclomethasone Dipropionate [Qvar 1 puffs INH BID #0 01/10/24 12/20/23 Redihaler (80 mcg)] Benzonatate [Tessalon] 100 mg PO TID PRN cap 01/10/24 Budesonide/Formoterol Fumarate 2 puffs INH BID #0 01/10/24 12/20/23 [Symbicort 160-4.5 Mcg Inhaler] Calcium Carbonate [Tums (Calcium 500 mg PO BID tab 01/10/24 Carbonate 500mg)] Cefepime 1 gm IV Q8H 30 Days #45 ml 01/10/24 Ferrous Sulfate [Feosol] 325 mg PO DAILY #0 01/10/24 12/20/23 Fexofenadine HCl 180 mg PO DAILY #0 01/10/24 12/20/23 Fluticasone [Flonase] 1 spray [place] BID #0 01/10/24 12/20/23 Furosemide [Lasix] 20 mg PO BID #0 01/10/24 12/20/23 Ipratropium [place] 2 spray MONICA TID #0 01/10/24 12/20/23 Ipratropium/Albuterol [Combivent 1 puffs INH QID #0 01/10/24 12/20/23 Respimat] Megestrol [Megace] 400 mg PO DAILY 7 Days ea 01/10/24 Methadone [Methadone Hcl] 2.5 mg PO BID #7 tab 01/10/24 Mirtazapine [Remeron] 15 mg PO QPM tab 01/10/24 Montelukast [Singulair] 10 mg PO QPM #0 01/10/24 12/20/23 Nystatin [Mycostatin] 5 ml PO QID #0 01/10/24 12/20/23 Pantoprazole [Protonix] 40 mg PO BID #0 01/10/24 12/20/23 Sucralfate [Carafate] 1 gm PO 0700,1100,1600,2200 ea 01/10/24 Theophylline Anhydrous 300 mg PO BID #0 01/10/24 12/20/23 [Theophylline ER] Umeclidinium [place] [Incruse 1 inh INH DAILY #0 01/10/24 12/20/23 Ellipta] - LABS Result Diagrams: 01/10/24 05:42 01/10/24 05:42 - SEPSIS Current Stage of Sepsis: Ruled out
== END 2024-01-10 14:55 | DRG 207 ==
LOC: EDUNIT# → ED 11:19 → ICU 17:32 → MS2 01-05 19:02
PROVIDERS: ADMIT Internal Medicine; ATTEND Specialist
PROC: 5A09357 Assistance with Respiratory Ventilation, Less than 24 Consecutive Hours, Continuous Positive Airway Pressure (ICD-10-PCS; 2023-12-19)
PROC: 0BH17EZ Insertion of Endotracheal Airway into Trachea, Via Natural or Artificial Opening (ICD-10-PCS; principal; 2023-12-20)
PROC: 02HV33Z Insertion of Infusion Device into Superior Vena Cava, Percutaneous Approach (ICD-10-PCS; 2023-12-20)
PROC: 5A1955Z Respiratory Ventilation, Greater than 96 Consecutive Hours (ICD-10-PCS; 2023-12-22)
PROC: 0DH67UZ Insertion of Feeding Device into Stomach, Via Natural or Artificial Opening (ICD-10-PCS; 2023-12-22)
PROC: 3E0G76Z Introduction of Nutritional Substance into Upper GI, Via Natural or Artificial Opening (ICD-10-PCS; 2023-12-22)
PROC: 30233N1 Transfusion of Nonautologous Red Blood Cells into Peripheral Vein, Percutaneous Approach (ICD-10-PCS; 2024-01-02)
PROC: 02HV33Z Insertion of Infusion Device into Superior Vena Cava, Percutaneous Approach (ICD-10-PCS; 2024-01-02)
DX: J96.01 Acute respiratory failure with hypoxia (principal); A41.9 Sepsis, unspecified organism; I21.A1 Myocardial infarction type 2; J18.9 Pneumonia, unspecified organism; I50.21 Acute systolic (congestive) heart failure; M86.9 Osteomyelitis, unspecified; K27.4 Chronic or unspecified peptic ulcer, site unspecified, with hemorrhage; I12.9 Hypertensive chronic kidney disease with stage 1 through stage 4 chronic kidney disease, or unspecified chronic kidney disease; N18.9 Chronic kidney disease, unspecified; N17.9 Acute kidney failure, unspecified; L97.429 Non-pressure chronic ulcer of left heel and midfoot with unspecified severity; J44.1 Chronic obstructive pulmonary disease with (acute) exacerbation; J44.0 Chronic obstructive pulmonary disease with (acute) lower respiratory infection; F11.20 Opioid dependence, uncomplicated; R57.9 Shock, unspecified; E87.29 Other acidosis; E27.2 Addisonian crisis; I42.9 Cardiomyopathy, unspecified; J45.51 Severe persistent asthma with (acute) exacerbation; M86.671 Other chronic osteomyelitis, right ankle and foot; L97.516 Non-pressure chronic ulcer of other part of right foot with bone involvement without evidence of necrosis; D62 Acute posthemorrhagic anemia; Z68.1 Body mass index [BMI] 19.9 or less, adult; R41.82 Altered mental status, unspecified; J96.02 Acute respiratory failure with hypercapnia; E11.69 Type 2 diabetes mellitus with other specified complication; I11.0 Hypertensive heart disease with heart failure; I50.810 Right heart failure, unspecified; R53.1 Weakness; M54.50 Low back pain, unspecified; I27.81 Cor pulmonale (chronic); E16.2 Hypoglycemia, unspecified; R63.4 Abnormal weight loss; R45.1 Restlessness and agitation; G47.33 Obstructive sleep apnea (adult) (pediatric); E11.22 Type 2 diabetes mellitus with diabetic chronic kidney disease; E11.621 Type 2 diabetes mellitus with foot ulcer; G89.29 Other chronic pain; R41.9 Unspecified symptoms and signs involving cognitive functions and awareness; M21.332 Wrist drop, left wrist; R63.0 Anorexia; M54.9 Dorsalgia, unspecified; Z88.8 Allergy status to other drugs, medicaments and biological substances; Z88.6 Allergy status to analgesic agent; Z11.52 Encounter for screening for COVID-19; Z79.52 Long term (current) use of systemic steroids; Z89.422 Acquired absence of other left toe(s); Z86.16 Personal history of COVID-19; Z87.01 Personal history of pneumonia (recurrent); Z86.19 Personal history of other infectious and parasitic diseases; Z53.29 Procedure and treatment not carried out because of patient's decision for other reasons
CPT/HCPCS: 36415; 36600; 70450; 70551; 71045; 72125; 80048; 80053; 80202; 82274; 82330; 82607; 82746; 82803; 83010; 83036; 83605; 83615; 83735; 84100; 84132; 84134; 84478; 84484; 85014; 85018; 85025; 85027; 85045; 86850; 86880; 86900; 86901; 86920; 87045; 87046; 87070; 87077; 87150; 87181; 87205; 87427; 93005; 93307; 94002; 94003; 94640; 94660; 97110; 97163; 97166; 97530; A9270; J0131; J0330; J1650; J1815; J2060; J3010; J3370; J7626; P9016; P9047; 85379; 86141; 87040; 87633; 96365; 96366; 96368; 99285

== ENCOUNTER → 2024-01-07 | Outpatient (CLI) | payer MEDICARE, OTHER | LOC: PC 08:00 | PROVIDERS: ATTEND Nurse Practitioner Adult Health | DX: Z53.9 Procedure and treatment not carried out, unspecified reason (principal) ==

== ENCOUNTER 2024-01-10 15:00 | Outpatient (CLI) | payer MEDICARE, OTHER | END 2024-01-10 23:59 | disposition home or self-care (01) | LOC: EMS 15:00 | PROVIDERS: ATTEND Specialist | DX: R53.1 Weakness (principal); J18.9 Pneumonia, unspecified organism; M86.9 Osteomyelitis, unspecified | CPT/HCPCS: A0425; A0428 ==

== ENCOUNTER 2024-01-12 21:29 | Outpatient (CLI) | payer MEDICARE, OTHER | END 2024-01-12 23:59 | disposition critical access hospital (66) | LOC: EMS 21:29 | DX: R00.0 Tachycardia, unspecified (principal) | CPT/HCPCS: A0425; A0427 ==

== ENCOUNTER 2024-01-12 21:58 | Emergency (ER) | payer MEDICARE, OTHER ==
--- NOTE | 2024-01-12 22:59 | ED Physician Documentation ---
PD HPI DYSPNEA - Stated complaint Stated Complaint: HIGH HEART RATE, LOWER LEG CELLULITIS - Chief complaint Chief Complaint: Cardiac - History obtained from History obtained from: Patient, EMS - History of Present Illness Timing - onset: Today Timing - onset during: Rest Timing - duration: Hours Timing - details: Gradual onset, Still present Inciting event(s): Other (patient is in correction facility with vanco running throug PICC line for osteo of the right foot. Recent 3 wk hospitalization for respiratory failure discharged 5 days ago.) Improved by: Rest Worsened by: Exertion Associated symptoms: Other (confusion) Similar symptoms before: Diagnosis (dehydration, respiratory failure) Recently seen: Admitted - Additional information Additional information: Manjit Montaño has recently been admitted to the hospital here for respiratory failure found to have osteomyelitis and he has after 3 weeks been discharged to a nursing facility getting vancomycin through a PICC line. He has not been doing well at the group home and this evening with the vital sign check he was found to have a heart rate of 150 and he was sent to the hospital by ambulance. He arrives here confused unable to give any specific history does not know why he is here. Review of Systems Unable to obtain: Confused PD PAST MEDICAL HISTORY - Past Medical History Cardiovascular: Congestive heart failure, Hypertension, Other Respiratory: Asthma, Pneumonia, Sleep apnea, CPAP use Neuro: Other Endocrine/Autoimmune: Type 2 diabetes GI: GERD, GI bleed : Kidney stones HEENT: None Psych: Anxiety Musculoskeletal: Fatigue, Chronic back pain Derm: Other - Past Surgical History Past Surgical History: No General: Colonoscopy Ortho: Hip replacement Neuro: Other HEENT: Cataracts, Tracheostomy, Other Derm: Other - Present Medications Home Medications: Ambulatory Orders Medication Instructions Recorded Confirmed Albuterol Sulfate [Proair Hfa 2 puffs INH Q4H PRN 03/30/18 12/20/23 Inhaler] Ipratropium/Albuterol [Duoneb] 3 ml PO Q4H PRN 12/20/23 12/20/23 Multivitamin with Minerals 1 tab PO DAILY 12/20/23 12/20/23 [Multivitamins with Minerals] guaiFENesin [Chest Congestion 400 mg PO Q6H PRN 12/20/23 12/20/23 Relief] Vancomycin Inj [Vancomycin Hcl] 750 mg IV Q12H #42 ml 01/09/24 Acetaminophen [Tylenol] 650 mg PO Q4HR PRN tab 01/10/24 Beclomethasone Dipropionate [Qvar 1 puffs INH BID #0 01/10/24 12/20/23 Redihaler (80 mcg)] Benzonatate [Tessalon] 100 mg PO TID PRN cap 01/10/24 Budesonide/Formoterol Fumarate 2 puffs INH BID #0 01/10/24 12/20/23 [Symbicort 160-4.5 Mcg Inhaler] Calcium Carbonate [Tums (Calcium 500 mg PO BID tab 01/10/24 Carbonate 500mg)] Cefepime 1 gm IV Q8H 30 Days #45 ml 01/10/24 Ferrous Sulfate [Feosol] 325 mg PO DAILY #0 01/10/24 12/20/23 Fexofenadine HCl 180 mg PO DAILY #0 01/10/24 12/20/23 Fluticasone [Flonase] 1 spray [place]ICA BID #0 01/10/24 12/20/23 Furosemide [Lasix] 20 mg PO BID #0 01/10/24 12/20/23 Ipratropium [place] 2 spray MONICA TID #0 01/10/24 12/20/23 Ipratropium/Albuterol [Combivent 1 puffs INH QID #0 01/10/24 12/20/23 Respimat] Megestrol [Megace] 400 mg PO DAILY 7 Days ea 01/10/24 Methadone [Methadone Hcl] 2.5 mg PO BID #7 tab 01/10/24 Mirtazapine [Remeron] 15 mg PO QPM tab 01/10/24 Montelukast [Singulair] 10 mg PO QPM #0 01/10/24 12/20/23 Nystatin [Mycostatin] 5 ml PO QID #0 01/10/24 12/20/23 Pantoprazole [Protonix] 40 mg PO BID #0 01/10/24 12/20/23 Sucralfate [Carafate] 1 gm PO 0700,1100,1600,2200 ea 01/10/24 Theophylline Anhydrous 300 mg PO BID #0 01/10/24 12/20/23 [Theophylline ER] Umeclidinium [place] [Incruse 1 inh INH DAILY #0 01/10/24 12/20/23 Ellipta] - Allergies Allergies/Adverse Reactions: Allergies Allergy/AdvReac Type Severity Reaction Status Date / Time aspirin Allergy Unknown Verified 01/12/24 22:19 cyclobenzaprine AdvReac Hallucinati Verified 01/12/24 22:19 [From Flexeril] ons ibuprofen AdvReac Respiratory Verified 01/12/24 22:19 pseudoephedrine AdvReac Unknown Verified 01/12/24 22:19 [From Entex T] - Social History Does the pt smoke?: No Smoking Status: Never smoker Does the pt drink ETOH?: No Does the pt have substance abuse?: Yes - Immunizations Immunizations are current?: Yes - POLST Patient has POLST: No POLST Status: Full Code PD ED PE NORMAL - Vitals Vital signs reviewed: Yes (tachy and hypertensive ) - General General: Other (Thin male appearing older than his stated age appears confused and is a poor historian. He is unable to contribute any history initially.) - HEENT HEENT: Atraumatic, PERRL, EOMI, Other (Parched mucous membranes.) - Neck Neck: Supple, no meningeal sign, No bony TTP - Cardiac Cardiac: No murmur, Other (Tachycardic up to 150 and regular.) - Respiratory Respiratory: No respiratory distress, Other (Coarse breath sounds bilaterally) - Abdomen Abdomen: Soft, Non tender - Back Back: No CVA TTP, No spinal TTP - Derm Derm: Normal color, Warm and dry, No rash - Extremities Extremities: No deformity, No edema, Other (The right foot is bandaged with gauze and there is no erythema there is no edema.) - Neuro Neuro: boat pilot 2-12 intact, No motor deficit, No sensory deficit, Normal speech Eye Opening: Spontaneous Motor: Obeys Commands Verbal: Confused GCS Score: 14 - Psych Psych: Normal mood, Normal affect Results - Vitals Vitals: Vital Signs - 24 hr 01/12/24 01/12/24 01/12/24 22:20 22:25 22:55 Temperature 37 C Heart Rate 142 H 165 H 154 H Respiratory 23 19 24 Rate Blood Pressure 139/98 H 120/80 O2 Saturation 99 96 95 If not protocol 2 2 : Oxygen Flow, liters/minute 01/12/24 01/12/24 01/13/24 23:25 23:30 00:00 Temperature Heart Rate 150 H 150 H 160 H Respiratory 24 18 Rate Blood Pressure 140/96 H O2 Saturation 98 93 If not protocol 2 : Oxygen Flow, liters/minute 01/13/24 01/13/24 01/13/24 00:11 00:30 01:00 Temperature Heart Rate 148 H 156 H 145 H Respiratory 24 95 H Rate Blood Pressure 151/115 H O2 Saturation 97 If not protocol : Oxygen Flow, liters/minute 01/13/24 01/13/24 01/13/24 01:39 01:49 02:00 Temperature Heart Rate 135 H 120 H 127 H Respiratory 24 23 23 Rate Blood Pressure 121/68 O2 Saturation 94 94 96 If not protocol 2 : Oxygen Flow, liters/minute 01/13/24 01/13/24 01/13/24 02:11 03:00 03:30 Temperature 37.2 C Heart Rate 132 H 113 H Respiratory 23 23 Rate Blood Pressure 130/84 H 133/94 H O2 Saturation 94 97 If not protocol 2 2 : Oxygen Flow, liters/minute 01/13/24 01/13/24 01/13/24 04:00 05:00 05:53 Temperature Heart Rate 116 H 120 H 122 H Respiratory 24 20 20 Rate Blood Pressure 132/94 H 129/84 H 136/96 H O2 Saturation 93 98 96 If not protocol 2 : Oxygen Flow, liters/minute 01/13/24 06:41 Temperature Heart Rate 112 H Respiratory 18 Rate Blood Pressure 129/81 H O2 Saturation 94 If not protocol : Oxygen Flow, liters/minute Oxygen O2 Source [] Nasal cannula O2 Source [] Nasal cannula O2 Source Room air Oxygen Flow Rate 2 - EKG (time done) 2233 EKG releavant findings:: EKG personally interpreted by author of this note. Relevant findings are: Rate: Rate (enter#) (148) Rhythm: SVT, Other (ventricular bigeminy) Ischemia: ST depression (likely rate related) Compare to prior EKG: Changed from prior EKG (SPT 12-19-23 the rate is slightly faster ) Computer interpretation: Agree with computer - Labs Labs: Laboratory Tests 01/12/24 01/12/24 01/12/24 23:20 23:20 23:20 WBC 8.3 RBC 3.55 L Hgb 9.6 L Hct 32.2 L MCV 90.7 MCH 27.0 MCHC 29.8 L RDW 15.4 H Plt Count 440 MPV 9.2 Neut # (Auto) 6.5 Lymph # (Auto) 1.0 L [place] # (Auto) 0.6 Eos # (Auto) 0.1 Baso # (Auto) 0.1 Absolute Nucleated RBC 0.00 Nucleated RBC % 0.0 Sodium 143 Potassium 2.6 L Chloride 100 L Carbon Dioxide 27 Anion Gap 16.0 H BUN 11 Creatinine 0.9 Estimated GFR (MDRD) 86 L Glucose 167 H Lactic Acid Calcium 10.0 Magnesium Total Bilirubin 0.5 AST 9 L ALT 8 L Alkaline Phosphatase 74 Troponin I High Sens 17.1 Total Protein 7.1 Albumin 3.4 Globulin 3.7 Albumin/Globulin Ratio 0.9 L Lipase < 10 L Urine Color Urine Clarity Urine pH Ur Specific [place] Urine Protein Urine Glucose (UA) Urine Ketones Urine Occult Blood Urine Nitrite Urine Bilirubin Urine Urobilinogen Ur Leukocyte Esterase Urine RBC Urine WBC Ur Squamous Epith Cells Urine Bacteria Ur Microscopic Review Urine Culture Comments 01/12/24 01/12/24 01/13/24 23:20 23:58 00:53 WBC RBC Hgb Hct MCV MCH MCHC RDW Plt Count MPV Neut # (Auto) Lymph # (Auto) [place] # (Auto) Eos # (Auto) Baso # (Auto) Absolute Nucleated RBC Nucleated RBC % Sodium Potassium Chloride Carbon Dioxide Anion Gap BUN Creatinine Estimated GFR (MDRD) Glucose Lactic Acid 1.9 Calcium Magnesium 1.3 L Total Bilirubin AST ALT Alkaline Phosphatase Troponin I High Sens Total Protein Albumin Globulin Albumin/Globulin Ratio Lipase Urine Color YELLOW Urine Clarity CLEAR Urine pH 6.5 Ur Specific [place] 1.015 Urine Protein NEGATIVE Urine Glucose (UA) NEGATIVE Urine Ketones NEGATIVE Urine Occult Blood SMALL H Urine Nitrite NEGATIVE Urine Bilirubin NEGATIVE Urine Urobilinogen 0.2 (NORMAL) Ur Leukocyte Esterase NEGATIVE Urine RBC 0-5 Urine WBC 0-3 Ur Squamous Epith Cells FEW Squamous Urine Bacteria Rare Ur Microscopic Review INDICATED Urine Culture Comments NOT INDICATED - Rads (name of study) Chest Relevant Findings:: Prelim report reviewed (Impression: PICC line in normal position. Slowly improving bilateral airspace disease that previously had been more prominent in the upper lobes.), EMP independent interpretation of test Procedures - IVC sono (time) 2250 Bedside IVC sono: IVC measures (cm) (0.72), Dehydration (est 3 liter deficit) PD Medical Decision Making - ED course Complexity details: reviewed old records, reviewed results, re-evaluated patient, considered differential, d/w patient Reviewed Lab Results: Reviewed a complete blood count showing a normal white blood cell count of 8.3 hemoglobin of 9.6 and hematocrit of 32.2 these are both improved from the patient's most recent 2 days ago. Platelets are normal. Chemistries show potassium low at 2.6 magnesium low at 1.3 BUN and creatinine are normal at 11 and 0.9. Glucose elevated 167 liver functions are low. high-sensitivity troponin is normal at 17.1. This patient's hemogram with improved hematocrit and hemoglobin indicate hemoconcentration and this is concordant with the patient's level of dehydration discovered on examination with POCUS and evaluation of the IVC. Low potassium and magnesium indication of significant electrolyte abnormality. These laboratory values show poor performance of the patient after recent hospitalization. ED course: Manjit Montaño is a 58-year-old diabetic with osteomyelitis who was recently been admitted for respiratory failure and is now in a correction facility receiving vancomycin for osteomyelitis. Today staff at the group home noted a rapid heart rate and called the ambulance to have the patient transported to hospital. The patient was unable to provide any significant history as he was s ignificantly confused and appeared very dry. I interrogated his inferior vena cava with POCUS and found him to have a 7.2 mm vessel indicating a volume deficit of 3 L. He presented with a heart rate of 150 and regular consistent with an SVT. I elected to provide fluid to the patient prior to any rate limiting medications and this fluid did help the patient with his level of confusion and he was eventually able to converse making sense. He is still a poor historian. We infused saline and eventually infused metoprolol intravenously which improved his heart rate substantially from the 150 range to the 120 range. He additionally had electrolyte abnormalities of a potassium of 2.6 and a magnesium of 1.1. He received IV potassium 10 mill equivalents x 3 in the emergency department. He received 2 g of magnesium as well. The patient indicates he continues to feel poorly and feels he needs to be admitted to the hospital. I initially felt we may be able to treat this patient in the emergency department however he was unable to swallow potassium and had multiple electrolyte abnormalities and profound dehydration. This poor performance by the patient indicates he likely is not consuming fluids where he is living. He will need continued treatment and I have contacted the hospitalist for admission. They contacted us shortly before 5am. The electrotyper helper refused admission as he was too busy. He asked us to place this task on our day hospitalist. At shift change here I have turned his care over to Dr. Harrison anticipating admission after morning hospitalist rounds. Departure - Departure Disposition: 66 [facility] DC/Xfer Clinical Impression: Sinus tachycardia, Dehydration, Hypokalemia, Hypomagnesemia Altered mental status Qualifiers: Altered mental status type: delirium Qualified Code(s): R41.0 - Disorientation, unspecified Osteomyelitis Qualifiers: Osteomyelitis type: subacute Osteomyelitis location: foot Laterality: right Qualified Code(s): M86.271 - Subacute osteomyelitis, right ankle and foot Forms: PCP List
[2024-01-12] MEDS: SODIUM CHLORIDE 0.9% 1,000 ML IV STA (23:15)
--- NOTE | 2024-01-12 23:26 | XRAY Report ---
PROCEDURE: Chest 1V INDICATIONS: soa TECHNIQUE: One view of the chest was acquired. COMPARISON: Prior recent chest plain films 12/28/2023, 12/26/2023, 12/24/2023. FINDINGS: Surgical changes and devices: PICC line from left-sided approach extends into the distal SVC. Lungs and pleura: No pleural effusions or pneumothorax. Lungs are slowly improving in alveolar infi ltration, best seen at the upper lobes with reference to the prior recent plain films. No new area of alveolar consolidation has developed.. Mediastinum: Mediastinal contours appear normal. Heart size is normal. Bones and chest wall: No suspicious bony lesions. Overlying soft tissues appear unremarkable. IMPRESSION: PICC line in normal position. Slowly improving bilateral airspace disease that previously had been mo re prominent at the upper lobes. Reviewed by: Teto Decker MD on 01/12/2024 11:25 PM PDT Approved by: Teto Decker MD on 01/12/2024 11:25 PM PDT Station ID: [id number]
[2024-01-12 23:38] LABS: BASOPHILS # (AUTO) 0.1 10^3/uL (0.0-0.1); BASOPHILS % (AUTO) 0.7 %; EOSINOPHILS # (AUTO) 0.1 10^3/uL (0.0-0.7); EOSINOPHILS % (AUTO) 1.6 %; HCT - HEMATOCRIT 32.2 % (42.0-52.0); HGB - HEMOGLOBIN 9.6 g/dL (14.0-18.0); LYMPHOCYTES % (AUTO) 11.4 %; MEAN CORPUSCULAR HGB CONC 29.8 g/dL (32.0-36.0); MEAN CORPUSCULAR VOLUME 90.7 fL (80.0-94.0); MEAN PLATELET VOLUME 9.2 fL (7.4-11.4); MONOCYTES # (AUTO) 0.6 10^3/uL (0.0-1.0); MONOCYTES % (AUTO) 7.3 %; NEUTROPHILS # (AUTO) 6.5 10^3/uL (1.5-6.6); NEUTROPHILS % (AUTO) 78.4 %; PLT - PLATELET COUNT 440 10^3/uL (130-450); RED BLOOD COUNT 3.55 10^6/uL (4.70-6.10); RED CELL DISTRIBUTION WIDTH 15.4 % (12.0-15.0); WHITE BLOOD COUNT 8.3 x10^3/uL (4.8-10.8)
[2024-01-12 23:53] LABS: LIPASE < 10 U/L (11-82)
[2024-01-12 23:55] LABS: ALBUMIN 3.4 g/dL (3.2-5.5); ALBUMIN/GLOBULIN RATIO 0.9 (1.0-2.2); ALKALINE PHOSPHATASE 74 IU/L (42-121); ALT ALANINE AMINOTRANSFERASE 8 IU/L (10-60); AST ASPARTATE AMINOTRANSFERASE 9 IU/L (10-42); BILIRUBIN,TOTAL 0.5 mg/dL (0.2-1.0); BUN - BLOOD UREA NITROGEN 11 mg/dL (6-20); CARBON DIOXIDE - CO2 27 mmol/L (21-32); CHLORIDE 100 mmol/L (101-111); CREATININE 0.9 mg/dL (0.6-1.3); GFR - MDRD 86 (>89); GLUCOSE 167 mg/dL (74-104); POTASSIUM 2.6 mmol/L (3.5-4.5); SODIUM 143 mmol/L (135-145); TOTAL PROTEIN 7.1 g/dL (6.4-8.9)
[2024-01-13] MEDS: IPRATROPIUM/ALBUTEROL 3 ML NEB INH STA (00:10)
[2024-01-13] MEDS: POTASSIUM CHLORIDE 20 MEQ TABLET PO STA (00:12)
[2024-01-13] MEDS: POTASSIUM CHLOR 10 MEQ/100 ML 10 MEQ/100 ML BAG IV STA (00:13)
[2024-01-13] MEDS: METOPROLOL 5 MG/5 ML VIAL IVP STA ×2 (01:31→03:22)
[2024-01-13] MEDS: POTASSIUM CHLOR 10 MEQ/100 ML 10 MEQ/100 ML BAG IV ONE ×2 (01:35→02:59)
[2024-01-13] MEDS: SODIUM CHLORIDE 0.9% 1,000 ML IV STA (01:55)
[2024-01-13 01:56] LABS: BILIRUBIN,URINE NEGATIVE (NEGATIVE); GLUCOSE, URINE (UA) NEGATIVE (NEGATIVE); KETONES,URINE (UA) NEGATIVE (NEGATIVE); LEUKOCYTE ESTERASE, URINE NEGATIVE (NEGATIVE); NITRITE,URINE NEGATIVE (NEGATIVE); OCCULT BLOOD,URINE SMALL (NEGATIVE); PH,URINE 6.5 PH (5.0-7.5); PROTEIN,URINE NEGATIVE (NEGATIVE); UROBILINOGEN,URINE 0.2 (NORMAL) E.U./dL (NORMAL)
[2024-01-13 02:02] LABS: CLARITY,URINE CLEAR (CLEAR)
[2024-01-13 03:12] LABS: BACTERIA,URINE Rare /HPF (None Seen); RBC,URINE 0-5 /HPF (0-5); SQUAMOUS EPITHELIAL CELL,UR FEW Squamous (<= Few); WBC,URINE 0-3 /HPF (0-3)
[2024-01-13] MEDS: MAGNESIUM SULFATE 2 GRAM 2 GM/50 ML BAG IV ONE (04:59)
[2024-01-13 07:27] LABS: BASOPHILS # (AUTO) 0.1 10^3/uL (0.0-0.1); BASOPHILS % (AUTO) 0.9 %; EOSINOPHILS # (AUTO) 0.1 10^3/uL (0.0-0.7); EOSINOPHILS % (AUTO) 1.8 %; HCT - HEMATOCRIT 28.2 % (42.0-52.0); HGB - HEMOGLOBIN 8.4 g/dL (14.0-18.0); LYMPHOCYTES # (AUTO) 0.9 10^3/uL (1.5-3.5); LYMPHOCYTES % (AUTO) 14.2 %; MEAN CORPUSCULAR HEMOGLOBIN 27.4 pg (27.0-31.0); MEAN CORPUSCULAR HGB CONC 29.8 g/dL (32.0-36.0); MEAN CORPUSCULAR VOLUME 91.9 fL (80.0-94.0); MEAN PLATELET VOLUME 9.2 fL (7.4-11.4); MONOCYTES # (AUTO) 0.5 10^3/uL (0.0-1.0); MONOCYTES % (AUTO) 6.9 %; NEUTROPHILS % (AUTO) 75.7 %; PLT - PLATELET COUNT 367 10^3/uL (130-450); RED BLOOD COUNT 3.07 10^6/uL (4.70-6.10); RED CELL DISTRIBUTION WIDTH 15.5 % (12.0-15.0); WHITE BLOOD COUNT 6.6 x10^3/uL (4.8-10.8)
[2024-01-13 07:43] VITALS: O2SAT 95
[2024-01-13 07:44] LABS: CALCIUM 9.3 mg/dL (8.5-10.3); CREATININE 0.9 mg/dL (0.6-1.3); MAGNESIUM 1.8 mg/dL (1.7-2.3); PHOSPHORUS 2.4 mg/dL (2.5-5.0); POTASSIUM 2.9 mmol/L (3.5-4.5)
--- NOTE | 2024-01-13 08:08 | ED Physician Documentation ---
ED Addendum - Addendum Addendum: 01/13/24 08:06 Patient is a 58-year-old male signed out to me by Dr. Phillips who would plan to admit the patient for electrolyte abnormalities and dehydration. Reevaluated the patient this morning after his repeat laboratory testing showed improvement in his electrolyte abnormalities. Patient is eating and drinking without difficulty here, requested breakfast this morning. Patient states that he feels much better and is requesting to go home at this time. Patient is on IV anti biotics at his [place] [facility] facility for his osteomyelitis. Patient is afebrile. Patient has chronic tachycardia, heart rate is usually between 100 to 150 bpm. He was tachycardic through nearly his entire last hospital admission. Does not appear that the tachycardia is new or changed significantly. Has chronic anemia as well. This is stable on his blood work. The 1 g drop as expected from the several liters of fluid he received overnight. Patient is alert, oriented x 3. Is not confused. Is afebrile. We will have the patient follow-up closely with his PCP to have his electrolytes rechecked. He will continue his IV antibiotics as previously prescribed. Departure - Departure Disposition: Home, Self Care Clinical Impression: Sinus tachycardia, Dehydration, Hypokalemia, Hypomagnesemia Altered mental status Qualifiers: Altered mental status type: delirium Qualified Code(s): R41.0 - Disorientation, unspecified Osteomyelitis Qualifiers: Osteomyelitis type: subacute Osteomyelitis location: foot Laterality: right Qualified Code(s): M86.271 - Subacute osteomyelitis, right ankle and foot Condition: Good Instructions: ED Dehydration, ED Potassium Deficiency Follow-Up: your,doctor in 3 days [Other] Comments: Manjit was given IV fluids, his potassium and magnesium were replaced. He has chronic anemia, his anemia, potassium and magnesium should be rechecked in 3 days with his doctor. Make sure he is drinking plenty of fluids. Please continue his current antibiotic treatment. His heart rate has been elevated throughout his recent stays in the hospital, usually around 105-150. Forms: PCP List
[2024-01-13] MEDS: POTASSIUM BICARB 25 MEQ TABLET PO STA (08:14)
[2024-01-13 09:08] VITALS: BP 132/88
== END 2024-01-13 08:57 | disposition home or self-care (01) ==
LOC: EDBD → EDUNIT# → ED 21:58
DX: R00.0 Tachycardia, unspecified (principal); M86.271 Subacute osteomyelitis, right ankle and foot; E87.6 Hypokalemia; E83.42 Hypomagnesemia; E86.0 Dehydration; R41.0 Disorientation, unspecified; I11.0 Hypertensive heart disease with heart failure; I50.9 Heart failure, unspecified; E11.9 Type 2 diabetes mellitus without complications
CPT/HCPCS: 36415; 71045; 80048; 80053; 81001; 83605; 83690; 83735; 84100; 84484; 85025; 87040; 93005; 94640; 94664; 96361; 96365; 96366; 96367; 96375; 96376; 99284; A9270; 81003; 87086

== ENCOUNTER 2024-01-13 08:45 | Outpatient (CLI) | payer MEDICARE, OTHER | END 2024-01-13 23:59 | disposition home or self-care (01) | LOC: EMS 08:45 | PROVIDERS: ATTEND Emergency Medicine | DX: M86.9 Osteomyelitis, unspecified (principal); Z74.01 Bed confinement status | CPT/HCPCS: A0425; A0428 ==

== ENCOUNTER 2024-01-14 08:00 | Outpatient (CLI) | payer MEDICARE, OTHER ==
[2024-01-14 20:49] LABS: VANCOMYCIN,TROUGH 32.4 ug/mL
== END 2024-01-14 23:59 | disposition home or self-care (01) ==
LOC: LAB.R 08:00
PROVIDERS: ATTEND Registered Nurse
DX: M86.671 Other chronic osteomyelitis, right ankle and foot (principal)
CPT/HCPCS: 36415; 80202

== ENCOUNTER 2024-01-15 02:36 | Outpatient (CLI) | payer MEDICARE, OTHER | END 2024-01-15 02:37 | disposition critical access hospital (66) | LOC: EMS 02:36 | DX: R06.02 Shortness of breath (principal); R07.89 Other chest pain; R00.0 Tachycardia, unspecified; R09.89 Other specified symptoms and signs involving the circulatory and respiratory systems | CPT/HCPCS: A0425; A0427 ==

== ENCOUNTER 2024-01-15 02:45 | Emergency (ER) | payer MEDICARE, OTHER ==
[2024-01-15 03:27] LABS: BASOPHILS # (AUTO) 0.1 10^3/uL (0.0-0.1); BASOPHILS % (AUTO) 0.7 %; EOSINOPHILS # (AUTO) 0.3 10^3/uL (0.0-0.7); EOSINOPHILS % (AUTO) 2.8 %; HCT - HEMATOCRIT 30.6 % (42.0-52.0); HGB - HEMOGLOBIN 9.6 g/dL (14.0-18.0); LYMPHOCYTES # (AUTO) 1.3 10^3/uL (1.5-3.5); LYMPHOCYTES % (AUTO) 13.7 %; MEAN CORPUSCULAR HEMOGLOBIN 27.4 pg (27.0-31.0); MEAN CORPUSCULAR HGB CONC 31.4 g/dL (32.0-36.0); MEAN CORPUSCULAR VOLUME 87.2 fL (80.0-94.0); MEAN PLATELET VOLUME 9.1 fL (7.4-11.4); MONOCYTES # (AUTO) 0.8 10^3/uL (0.0-1.0); MONOCYTES % (AUTO) 8.4 %; NEUTROPHILS # (AUTO) 7.2 10^3/uL (1.5-6.6); PLT - PLATELET COUNT 439 10^3/uL (130-450); RED BLOOD COUNT 3.51 10^6/uL (4.70-6.10); WHITE BLOOD COUNT 9.7 x10^3/uL (4.8-10.8)
[2024-01-15] MEDS: METOPROLOL 5 MG/5 ML VIAL IVP STA (03:32)
[2024-01-15] MEDS: SODIUM CHLORIDE 0.9% 1,000 ML IV STA (03:33)
[2024-01-15] MEDS: METOPROLOL TARTRATE 50 MG TABLET PO STA (03:33)
[2024-01-15 03:46] LABS: ALBUMIN 3.3 g/dL (3.2-5.5); ALBUMIN/GLOBULIN RATIO 0.9 (1.0-2.2); BILIRUBIN,TOTAL 0.4 mg/dL (0.2-1.0); CALCIUM 9.2 mg/dL (8.5-10.3); POTASSIUM 2.3 mmol/L (3.5-4.5); TOTAL PROTEIN 6.9 g/dL (6.4-8.9)
[2024-01-15] MEDS: ONDANSETRON 4 MG/2 ML VIAL IVP STA (04:40)
[2024-01-15] MEDS: POTASSIUM CHLOR 10 MEQ/100 ML 10 MEQ/100 ML BAG IV STA (04:40)
[2024-01-15] MEDS: POTASSIUM CHLORIDE 20 MEQ TABLET PO STA (04:40)
[2024-01-15 05:19] VITALS: BP 110/72; O2SAT 97
--- NOTE | 2024-01-15 05:26 | ED Physician Documentation ---
PD HPI DYSPNEA - Stated complaint Stated Complaint: SOA/CHEST PX - Chief complaint Chief Complaint: Resp - History obtained from History obtained from: Patient, EMS - Additional information Additional information: The pt comes to the ED with CC of "asthma". He has been feeling SOB today, and his SNF staff noticed his HR was elevated. The pt has a h/o atrial fib with recurrent RVR that has been difficult to control lately. He has recently been admitted for osteomyelitis of the foot, and is being treated with IV vancomycin via PICC. He has been here the past 2 days also for atrial fib with RVR. Pt denies fever, chills, N/V, or diaphoresis. He is in poor health in general. PD PAST MEDICAL HISTORY - Past Medical History Cardiovascular: Congestive heart failure, Hypertension, Other Respiratory: Asthma, Pneumonia, Sleep apnea, CPAP use Neuro: Other Endocrine/Autoimmune: Type 2 diabetes GI: GERD, GI bleed : Kidney stones HEENT: None Psych: Anxiety Musculoskeletal: Fatigue, Chronic back pain Derm: Other - Past Surgical History Past Surgical History: No General: Colonoscopy Ortho: Hip replacement Neuro: Other HEENT: Cataracts, Tracheostomy, Other Derm: Other - Present Medications Home Medications: Ambulatory Orders Medication Instructions Recorded Confirmed Albuterol Sulfate [Proair Hfa 2 puffs INH Q4H PRN 03/30/18 01/15/24 Inhaler] Ipratropium/Albuterol [Duoneb] 3 ml PO Q4H PRN 12/20/23 01/15/24 Multivitamin with Minerals 1 tab PO DAILY 12/20/23 01/15/24 [Multivitamins with Minerals] guaiFENesin [Chest Congestion 400 mg PO Q6H PRN 12/20/23 01/15/24 Relief] Vancomycin Inj [Vancomycin Hcl] 750 mg IV Q12H #42 ml 01/09/24 01/15/24 Acetaminophen [Tylenol] 650 mg PO Q4HR PRN tab 01/10/24 01/15/24 Beclomethasone Dipropionate [Qvar 1 puffs INH BID #0 01/10/24 01/15/24 Redihaler (80 mcg)] Benzonatate [Tessalon] 100 mg PO TID PRN cap 01/10/24 01/15/24 Budesonide/Formoterol Fumarate 2 puffs INH BID #0 01/10/24 01/15/24 [Symbicort 160-4.5 Mcg Inhaler] Calcium Carbonate [Tums (Calcium 500 mg PO BID tab 01/10/24 01/15/24 Carbonate 500mg)] Cefepime 1 gm IV Q8H 30 Days #45 ml 01/10/24 01/15/24 Ferrous Sulfate [Feosol] 325 mg PO DAILY #0 01/10/24 01/15/24 Fexofenadine HCl 180 mg PO DAILY #0 01/10/24 01/15/24 Fluticasone [Flonase] 1 spray [place] BID #0 01/10/24 01/15/24 Furosemide [Lasix] 20 mg PO BID #0 01/10/24 01/15/24 Ipratropium [place] 2 spray MONICA TID #0 01/10/24 01/15/24 Ipratropium/Albuterol [Combivent 1 puffs INH QID #0 01/10/24 01/15/24 Respimat] Megestrol [Megace] 400 mg PO DAILY 7 Days ea 01/10/24 01/15/24 Methadone [Methadone Hcl] 2.5 mg PO BID #7 tab 01/10/24 01/15/24 Mirtazapine [Remeron] 15 mg PO QPM tab 01/10/24 01/15/24 Montelukast [Singulair] 10 mg PO QPM #0 01/10/24 01/15/24 Nystatin [Mycostatin] 5 ml PO QID #0 01/10/24 01/15/24 Pantoprazole [Protonix] 40 mg PO BID #0 01/10/24 01/15/24 Sucralfate [Carafate] 1 gm PO 0700,1100,1600,2200 ea 01/10/24 01/15/24 Theophylline Anhydrous 300 mg PO BID #0 01/10/24 01/15/24 [Theophylline ER] Umeclidinium [place] [Incruse 1 inh INH DAILY #0 01/10/24 01/15/24 Ellipta] Bisacodyl Supp [Dulcolax Supp] 1 appful MA PRN PRN 01/13/24 01/15/24 Metoprolol Tartrate [Lopressor] 12.5 mg PO DAILY 01/13/24 01/15/24 Mineral Oil [Mineral Oil Enema] 1 appful MA PRN PRN 01/13/24 01/15/24 Sulfamethox/Trimeth 800/160 1 tab PO DAILY 01/13/24 01/15/24 [Bactrim Ds] polyethylene glycoL 3350 [Miralax] 1 packet PO PRN PRN 01/13/24 01/15/24 Naloxone HCl Nasal [Narcan Nasal] 1 spray IN DAILY PRN 01/15/24 01/15/24 - Allergies Allergies/Adverse Reactions: Allergies Allergy/AdvReac Type Severity Reaction Status Date / Time aspirin Allergy Unknown Verified 01/15/24 02:50 cyclobenzaprine AdvReac Hallucinati Verified 01/15/24 02:50 [From Flexeril] ons ibuprofen AdvReac Respiratory Verified 01/15/24 02:50 pseudoephedrine AdvReac Unknown Verified 01/15/24 02:50 [From Entex T] - Social History Does the pt smoke?: No Smoking Status: Never smoker Does the pt drink ETOH?: No Does the pt have substance abuse?: Yes - Immunizations Immunizations are current?: Yes - POLST Patient has POLST: No POLST Status: Full Code PD ED PE NORMAL - Vitals Vital signs reviewed: Yes - General General: Alert and oriented X 3, No acute distress, Other ([id number], ) - HEENT HEENT: Atraumatic, PERRL, EOMI, Moist mucous membranes - Neck Neck: Supple, no meningeal sign - Cardiac Cardiac: No murmur, Other (Tachycardic, irregularly irregular rhythm) - Respiratory Respiratory: No respiratory distress, Other (Rales L lung, no wheezes either side) - Abdomen Abdomen: Soft, Non tender, Non distended - Derm Derm: Normal color, Warm and dry, No rash - Extremities Extremities: No deformity, No edema, Other (both feet with dressings in place, CDI. No erythema extending beyond bandages.) - Neuro Neuro: Other (Alert, grossly intact) - Psych Psych: Normal mood, Normal affect Results - Vitals Vitals: Oxygen O2 Source [With Activity] Nasal cannula O2 Source [Without Activity] Nasal cannula O2 Source Nasal cannula Oxygen Flow Rate 2 - EKG (time done) 0250 EKG releavant findings:: EKG personally interpreted by author of this note. Relevant findings are: Rate: Rate (enter#) (143) Rhythm: Atrial fibrillation [place]: Normal QRS: Normal Ischemia: ST elevation c/w repol, Non specific changes Compare to prior EKG: Old EKG unavailable Computer interpretation: Agree with computer - Labs Labs: Laboratory Tests 01/15/24 01/15/24 03:16 03:16 WBC 9.7 RBC 3.51 L Hgb 9.6 L Hct 30.6 L MCV 87.2 MCH 27.4 MCHC 31.4 L RDW 15.0 Plt Count 439 MPV 9.1 Neut # (Auto) 7.2 H Lymph # (Auto) 1.3 L [place] # (Auto) 0.8 Eos # (Auto) 0.3 Baso # (Auto) 0.1 Absolute Nucleated RBC 0.00 Nucleated RBC % 0.0 Sodium 142 Potassium 2.3 L* Chloride 99 L Carbon Dioxide 28 Anion Gap 15.0 H BUN 8 Creatinine 1.0 Estimated GFR (MDRD) 76 L Glucose 118 H Calcium 9.2 Total Bilirubin 0.4 AST 8 L ALT 8 L Alkaline Phosphatase 63 Total Protein 6.9 Albumin 3.3 Globulin 3.6 Albumin/Globulin Ratio 0.9 L Lipase 14 - Rads (name of study) Chest XR Relevant Findings:: Final report received, See rad report (No acute findings, L lung improved) PD Medical Decision Making - ED course Complexity details: reviewed old records, reviewed results, re-evaluated patient, considered differential, d/w patient ED course: The EKG showed atrial fib with RVR, corresponding with pt's HR on the monitor in the 140's. The pt was given PO and IV metoprolol with excellent response, and follow-up HR sustained in the 80's. He was found to be resting comfortably with a normal HR and good vitals on re-evaluation. His exam did not indicate an asthma exacerbation, and the CXR actually was fairly clear, and demonstrating interval improvement. Labs were unremarkable, except for potassium of 2.3, for which the pt was treated with IV and oral potassium. The pt was stable for d/c home. We have discussed the usual indications for return. Departure - Departure Disposition: Home, Self Care Clinical Impression: Atrial fibrillation with RVR Condition: Stable Instructions: ED Afib Comments: Your labs and chest x-ray actually look fairly good. We gave you medicine to slow your heart rate down and it has improved nicely. Please follow-up with your primary doctor to determine further ongoing care needs. Forms: PCP List Discharge Date/Time: 01/15/24 06:02
--- NOTE | 2024-01-15 08:00 | XRAY Report ---
PROCEDURE: Chest 1V INDICATIONS: chest pain TECHNIQUE: One view of the chest was acquired. COMPARISON: 01/12/2024, multiple priors FINDINGS: Surgical changes and devices: A left PICC projects over the central chest, most likely in the SVC, b ut location indeterminate on this study Partially seen cervical fusion hardware. Lungs and pleura: Slightly decreased left greater than right upper lobe opacities. No drainable pleu ral effusions. Mild diffuse interstitial thickening. Low lung volumes. Mediastinum: Borderline heart size. Aortic calcifications. Bones and chest wall: Degenerative changes. IMPRESSION: Continued slight decreased left upper lobe opacity and mild interstitial thickening, possibly infecti ous/inflammatory and/or edema. Agree with preliminary report. As mentioned on prior reports, consider future radiograph or CT surveillance to assess for resolution and any underlying lesion. Reviewed by: Himanshu Fitzpatrick MD on 01/15/2024 7:59 AM PDT Approved by: Himanshu Fitzpatrick MD on 01/15/2024 7:59 AM PDT Station ID: [id number]
== END 2024-01-15 06:02 | disposition home or self-care (01) ==
LOC: EDUNIT# → ED 02:45
DX: I48.91 Unspecified atrial fibrillation (principal); I11.0 Hypertensive heart disease with heart failure; I50.9 Heart failure, unspecified; E11.9 Type 2 diabetes mellitus without complications; Z79.51 Long term (current) use of inhaled steroids; Z79.899 Other long term (current) drug therapy
CPT/HCPCS: 36415; 71045; 80053; 83690; 85025; 93005; 96365; 96375; 99284; A9270

== ENCOUNTER 2024-01-15 06:02 | Outpatient (CLI) | payer MEDICARE, OTHER | END 2024-01-15 06:03 | LOC: EMS 06:02 | PROVIDERS: ATTEND Emergency Medicine | DX: M86.9 Osteomyelitis, unspecified (principal); Z74.01 Bed confinement status | CPT/HCPCS: A0425; A0428 ==

== ENCOUNTER 2024-01-16 13:12 | Outpatient (CLI) | payer MEDICARE, OTHER | END 2024-01-16 13:13 | disposition critical access hospital (66) | LOC: EMS 13:12 | DX: T82.594A Other mechanical complication of infusion catheter, initial encounter (principal) | CPT/HCPCS: A0425; A0429 ==

== ENCOUNTER 2024-01-16 13:23 | Emergency (ER) | payer MEDICARE, OTHER ==
--- NOTE | 2024-01-16 13:50 | ED Physician Documentation ---
History of Present Illness - Stated complaint Stated Complaint: PICC LINE PROBLEM - Chief complaint Chief Complaint: General - History obtained from History obtained from: EMS, Other (Recent discharge summary from January 10, 2024) - Additonal information Additional information: Patient is a 58-year-old male presenting for evaluation of issues with his right upper extremity PICC line. The patient is receiving IV antibiotics for a total course of 6 weeks for the treatment of osteomyelitis. Antibiotics are scheduled through January 29. Apparently nurse at [facility] was unable to flush the PICC line today so EMS was called and patient was brought to the emergency department. Patient denies any pain in the extremity. Review of Systems Unable to obtain: Other (Poor historian) Constitutional: denies: Fever Musculoskeletal: denies: Extremity pain PD PAST MEDICAL HISTORY - Past Medical History Past Medical History: Yes Cardiovascular: Congestive heart failure, Hypertension, Other Respiratory: Asthma, Pneumonia, Sleep apnea, CPAP use Neuro: Other Endocrine/Autoimmune: Type 2 diabetes GI: GERD, GI bleed : Kidney stones HEENT: None Psych: Anxiety Musculoskeletal: Fatigue, Chronic back pain Derm: Other - Past Surgical History Past Surgical History: No General: Colonoscopy Ortho: Hip replacement Neuro: Other HEENT: Cataracts, Tracheostomy, Other Derm: Other - Present Medications Home Medications: Ambulatory Orders Medication Instructions Recorded Confirmed Albuterol Sulfate [Proair Hfa 2 puffs INH Q4H PRN 03/30/18 01/16/24 Inhaler] Ipratropium/Albuterol [Duoneb] 3 ml PO Q4H PRN 12/20/23 01/16/24 Multivitamin with Minerals 1 tab PO DAILY 12/20/23 01/16/24 [Multivitamins with Minerals] guaiFENesin [Chest Congestion 400 mg PO Q6H PRN 12/20/23 01/16/24 Relief] Vancomycin Inj [Vancomycin Hcl] 750 mg IV Q12H #42 ml 01/09/24 01/16/24 Acetaminophen [Tylenol] 650 mg PO Q4HR PRN tab 01/10/24 01/16/24 Beclomethasone Dipropionate [Qvar 1 puffs INH BID #0 01/10/24 01/16/24 Redihaler (80 mcg)] Benzonatate [Tessalon] 100 mg PO TID PRN cap 01/10/24 01/16/24 Budesonide/Formoterol Fumarate 2 puffs INH BID #0 01/10/24 01/16/24 [Symbicort 160-4.5 Mcg Inhaler] Calcium Carbonate [Tums (Calcium 500 mg PO BID tab 01/10/24 01/16/24 Carbonate 500mg)] Cefepime 1 gm IV Q8H 30 Days #45 ml 01/10/24 01/16/24 Ferrous Sulfate [Feosol] 325 mg PO DAILY #0 01/10/24 01/16/24 Fexofenadine HCl 180 mg PO DAILY #0 01/10/24 01/16/24 Fluticasone [Flonase] 1 spray MONICA BID #0 01/10/24 01/16/24 Furosemide [Lasix] 20 mg PO BID #0 01/10/24 01/16/24 Ipratropium [place] 2 spray MONICA TID #0 01/10/24 01/16/24 Ipratropium/Albuterol [Combivent 1 puffs INH QID #0 01/10/24 01/16/24 Respimat] Megestrol [Megace] 400 mg PO DAILY 7 Days ea 01/10/24 01/16/24 Methadone [Methadone Hcl] 2.5 mg PO BID #7 tab 01/10/24 01/16/24 Mirtazapine [Remeron] 15 mg PO QPM tab 01/10/24 01/16/24 Montelukast [Singulair] 10 mg PO QPM #0 01/10/24 01/16/24 Nystatin [Mycostatin] 5 ml PO QID #0 01/10/24 01/16/24 Pantoprazole [Protonix] 40 mg PO BID #0 01/10/24 01/16/24 Sucralfate [Carafate] 1 gm PO 0700,1100,1600,2200 ea 01/10/24 01/16/24 Theophylline Anhydrous 300 mg PO BID #0 01/10/24 01/16/24 [Theophylline ER] Umeclidinium [place] [Incruse 1 inh INH DAILY #0 01/10/24 01/16/24 Ellipta] Bisacodyl Supp [Dulcolax Supp] 1 appful [place] PRN PRN 01/13/24 01/16/24 Metoprolol Tartrate [Lopressor] 12.5 mg PO DAILY 01/13/24 01/16/24 Mineral Oil [Mineral Oil Enema] 1 appful [place] PRN PRN 01/13/24 01/16/24 Sulfamethox/Trimeth 800/160 1 tab PO DAILY 01/13/24 01/16/24 [Bactrim Ds] polyethylene glycoL 3350 [Miralax] 1 packet PO PRN PRN 01/13/24 01/16/24 Naloxone HCl Nasal [Narcan Nasal] 1 spray IN DAILY PRN 01/15/24 01/16/24 - Allergies Allergies/Adverse Reactions: Allergies Allergy/AdvReac Type Severity Reaction Status Date / Time aspirin Allergy Unknown Verified 01/16/24 13:25 cyclobenzaprine AdvReac Hallucinati Verified 01/16/24 13:25 [From Flexeril] ons ibuprofen AdvReac Respiratory Verified 01/16/24 13:25 pseudoephedrine AdvReac Unknown Verified 01/16/24 13:25 [From Entex T] - Social History Does the pt smoke?: No Smoking Status: Never smoker Does the pt drink ETOH?: No Does the pt have substance abuse?: Yes - Immunizations Immunizations are current?: Yes - POLST Patient has POLST: No POLST Status: Full Code PD ED PE NORMAL - General General: Alert and oriented X 3, No acute distress, Other (Chronically ill- appearing) - HEENT HEENT: Atraumatic - Neck Neck: Supple, no meningeal sign - Cardiac Cardiac: RRR - Respiratory Respiratory: No respiratory distress - Extremities Extremities: Other (PICC line to right upper extremity, no surrounding redness or swelling) Results - Vitals Vitals: Vital Signs - 24 hr 01/16/24 01/16/24 13:25 14:34 Temperature 36.7 C Heart Rate 99 107 H Respiratory 16 21 Rate Blood Pressure 123/80 105/70 O2 Saturation 93 94 Oxygen O2 Source [With Activity] Nasal cannula O2 Source [Without Activity] Nasal cannula O2 Source Room air PD Medical Decision Making - ED course ED course: Pt presenting from [facility] with PICC not flushing. PICC for IV antibiotics for osteomyelitis. No redness, swelling, pain to extremity. RN able to easily flush PICC. No other reported concerns. Discharge back to [facility]. 1357 - MITESH Neal was able to flush the PICC without any difficulty and also aspirate blood. She also moves the arm in various directions and was able to still flush the line without any difficulty. Departure - Departure Disposition: 01 Home, Self Care Clinical Impression: PIC line (peripherally inserted central catheter) flush Condition: Stable Comments: Your PICC line was flushed without any difficulty and appears to be patent and working. Return to the ER with any concerns. Forms: PCP List Discharge Date/Time: 01/16/24 14:44
[2024-01-16 14:39] VITALS: BP 105/70; O2SAT 94
== END 2024-01-16 14:44 | disposition home or self-care (01) ==
LOC: EDUNIT# → ED 13:23
DX: T82.9XXA Unspecified complication of cardiac and vascular prosthetic device, implant and graft, initial encounter (principal); I11.0 Hypertensive heart disease with heart failure; I50.9 Heart failure, unspecified; E11.9 Type 2 diabetes mellitus without complications; Z79.899 Other long term (current) drug therapy; Z79.51 Long term (current) use of inhaled steroids
CPT/HCPCS: 99282; 99283

== ENCOUNTER 2024-01-16 14:44 | Outpatient (CLI) | payer MEDICARE, OTHER | END 2024-01-16 23:59 | LOC: EMS 14:44 | PROVIDERS: ATTEND Emergency Medicine | DX: T82.594A Other mechanical complication of infusion catheter, initial encounter (principal); R53.1 Weakness; R09.02 Hypoxemia; M86.9 Osteomyelitis, unspecified | CPT/HCPCS: A0425; A0428 ==

== ENCOUNTER 2024-01-17 12:22 | Outpatient (CLI) | payer MEDICARE, OTHER ==
[2024-01-17 12:39] LABS: BASOPHILS # (AUTO) 0.1 10^3/uL (0.0-0.1); BASOPHILS % (AUTO) 1.1 %; EOSINOPHILS # (AUTO) 0.5 10^3/uL (0.0-0.7); EOSINOPHILS % (AUTO) 4.9 %; HGB - HEMOGLOBIN 10.1 g/dL (14.0-18.0); LYMPHOCYTES # (AUTO) 1.7 10^3/uL (1.5-3.5); LYMPHOCYTES % (AUTO) 17.4 %; MEAN CORPUSCULAR HEMOGLOBIN 26.5 pg (27.0-31.0); MEAN CORPUSCULAR HGB CONC 30.6 g/dL (32.0-36.0); MEAN CORPUSCULAR VOLUME 86.6 fL (80.0-94.0); MEAN PLATELET VOLUME 9.4 fL (7.4-11.4); MONOCYTES % (AUTO) 9.6 %; NEUTROPHILS # (AUTO) 6.6 10^3/uL (1.5-6.6); NEUTROPHILS % (AUTO) 65.9 %; PLT - PLATELET COUNT 532 10^3/uL (130-450); RED BLOOD COUNT 3.81 10^6/uL (4.70-6.10); RED CELL DISTRIBUTION WIDTH 15.1 % (12.0-15.0)
[2024-01-17 12:45] LABS: ESTIMATED AVERAGE GLUCOSE 123 mg/dL (70-100); HEMOGLOBIN A1c% 5.9 % (4.27-6.07)
[2024-01-17 12:55] LABS: CRP - C-REACTIVE PROTEIN 0.9 mg/dL (<0.5); VANCOMYCIN,TROUGH 17.3 ug/mL
[2024-01-17 13:24] LABS: POTASSIUM 2.3 mmol/L (3.5-4.5)
[2024-01-17 13:25] LABS: ALBUMIN 3.3 g/dL (3.2-5.5); ALKALINE PHOSPHATASE 72 IU/L (42-121); ALT ALANINE AMINOTRANSFERASE 6 IU/L (10-60); AST ASPARTATE AMINOTRANSFERASE 8 IU/L (10-42); BILIRUBIN,TOTAL 0.4 mg/dL (0.2-1.0); BUN - BLOOD UREA NITROGEN 14 mg/dL (6-20); CALCIUM 9.2 mg/dL (8.5-10.3); CARBON DIOXIDE - CO2 30 mmol/L (21-32); CHLORIDE 97 mmol/L (101-111); CREATININE 1.4 mg/dL (0.6-1.3); GFR - MDRD 52 (>89); GLUCOSE 90 mg/dL (74-104); SODIUM 138 mmol/L (135-145); TOTAL PROTEIN 6.6 g/dL (6.4-8.9)
== END 2024-01-17 12:23 | disposition home or self-care (01) ==
LOC: LAB.R 12:22
PROVIDERS: ATTEND Registered Nurse
DX: I11.0 Hypertensive heart disease with heart failure (principal); I50.22 Chronic systolic (congestive) heart failure; M86.671 Other chronic osteomyelitis, right ankle and foot; E11.621 Type 2 diabetes mellitus with foot ulcer; M15.9 Polyosteoarthritis, unspecified; D62 Acute posthemorrhagic anemia
CPT/HCPCS: 80053; 80202; 83036; 85025; 85651; 86140

== ENCOUNTER 2024-01-17 13:57 | Outpatient (CLI) | payer MEDICARE, OTHER | END 2024-01-17 23:59 | disposition critical access hospital (66) | LOC: EMS 13:57 | DX: R53.83 Other fatigue (principal); E87.6 Hypokalemia | CPT/HCPCS: A0425; A0429 ==

== ENCOUNTER 2024-01-17 14:03 | Inpatient (IN) | payer MEDICARE, OTHER ==
[2024-01-17 14:43] LABS: BASOPHILS # (AUTO) 0.1 10^3/uL (0.0-0.1); BASOPHILS % (AUTO) 1.2 %; EOSINOPHILS # (AUTO) 0.5 10^3/uL (0.0-0.7); EOSINOPHILS % (AUTO) 4.9 %; HCT - HEMATOCRIT 32.4 % (42.0-52.0); HGB - HEMOGLOBIN 9.9 g/dL (14.0-18.0); LYMPHOCYTES # (AUTO) 1.5 10^3/uL (1.5-3.5); LYMPHOCYTES % (AUTO) 15.9 %; MEAN CORPUSCULAR HEMOGLOBIN 26.8 pg (27.0-31.0); MEAN CORPUSCULAR HGB CONC 30.6 g/dL (32.0-36.0); MEAN CORPUSCULAR VOLUME 87.6 fL (80.0-94.0); MEAN PLATELET VOLUME 9.1 fL (7.4-11.4); MONOCYTES # (AUTO) 0.9 10^3/uL (0.0-1.0); MONOCYTES % (AUTO) 10.3 %; NEUTROPHILS # (AUTO) 6.1 10^3/uL (1.5-6.6); NEUTROPHILS % (AUTO) 66.8 %; PLT - PLATELET COUNT 475 10^3/uL (130-450); WHITE BLOOD COUNT 9.1 x10^3/uL (4.8-10.8)
[2024-01-17 14:54] LABS: MAGNESIUM 1.4 mg/dL (1.7-2.3)
--- NOTE | 2024-01-17 15:13 | ED Physician Documentation ---
History of Present Illness - Stated complaint Stated Complaint: LOW POTASSIUM - Chief complaint Chief Complaint: General - Additonal information Additional information: 58-year-old ill-appearing male presents emergency department from [facility] via EMS for concerns of hypokalemia. Patient is very weak and fatigued he says he is having a hard time even feeding himself due to the severity of his weakness. He does history of CHF he is currently on furosemide for this for diuresing he was here yesterday for PICC line issues. Potassium today is 2.1. Patient has PICC line for osteomyelitis of the right foot and appears to be receiving IV vancomycin and cefepime. PD PAST MEDICAL HISTORY - Past Medical History Cardiovascular: Congestive heart failure, Hypertension, Other Respiratory: Asthma, Pneumonia, Sleep apnea, CPAP use Neuro: Other Endocrine/Autoimmune: Type 2 diabetes GI: GERD, GI bleed : Kidney stones HEENT: None Psych: Anxiety Musculoskeletal: Fatigue, Chronic back pain Derm: Other - Past Surgical History Past Surgical History: No General: Colonoscopy Ortho: Hip replacement Neuro: Other HEENT: Cataracts, Tracheostomy, Other Derm: Other - Present Medications Home Medications: Ambulatory Orders Medication Instructions Recorded Confirmed Albuterol Sulfate [Proair Hfa 2 puffs INH Q4H PRN 03/30/18 01/16/24 Inhaler] Ipratropium/Albuterol [Duoneb] 3 ml PO Q4H PRN 12/20/23 01/16/24 Multivitamin with Minerals 1 tab PO DAILY 12/20/23 01/16/24 [Multivitamins with Minerals] guaiFENesin [Chest Congestion 400 mg PO Q6H PRN 12/20/23 01/16/24 Relief] Vancomycin Inj [Vancomycin Hcl] 750 mg IV Q12H #42 ml 01/09/24 01/16/24 Acetaminophen [Tylenol] 650 mg PO Q4HR PRN tab 01/10/24 01/16/24 Beclomethasone Dipropionate [Qvar 1 puffs INH BID #0 01/10/24 01/16/24 Redihaler (80 mcg)] Benzonatate [Tessalon] 100 mg PO TID PRN cap 01/10/24 01/16/24 Budesonide/Formoterol Fumarate 2 puffs INH BID #0 01/10/24 01/16/24 [Symbicort 160-4.5 Mcg Inhaler] Calcium Carbonate [Tums (Calcium 500 mg PO BID tab 01/10/24 01/16/24 Carbonate 500mg)] Cefepime 1 gm IV Q8H 30 Days #45 ml 01/10/24 01/16/24 Ferrous Sulfate [Feosol] 325 mg PO DAILY #0 01/10/24 01/16/24 Fexofenadine HCl 180 mg PO DAILY #0 01/10/24 01/16/24 Fluticasone [Flonase] 1 spray [place] BID #0 01/10/24 01/16/24 Furosemide [Lasix] 20 mg PO BID #0 01/10/24 01/16/24 Ipratropium [place] 2 spray MONICA TID #0 01/10/24 01/16/24 Ipratropium/Albuterol [Combivent 1 puffs INH QID #0 01/10/24 01/16/24 Respimat] Megestrol [Megace] 400 mg PO DAILY 7 Days ea 01/10/24 01/16/24 Methadone [Methadone Hcl] 2.5 mg PO BID #7 tab 01/10/24 01/16/24 Mirtazapine [Remeron] 15 mg PO QPM tab 01/10/24 01/16/24 Montelukast [Singulair] 10 mg PO QPM #0 01/10/24 01/16/24 Nystatin [Mycostatin] 5 ml PO QID #0 01/10/24 01/16/24 Pantoprazole [Protonix] 40 mg PO BID #0 01/10/24 01/16/24 Sucralfate [Carafate] 1 gm PO 0700,1100,1600,2200 ea 01/10/24 01/16/24 Theophylline Anhydrous 300 mg PO BID #0 01/10/24 01/16/24 [Theophylline ER] Umeclidinium [place] [Incruse 1 inh INH DAILY #0 01/10/24 01/16/24 Ellipta] Bisacodyl Supp [Dulcolax Supp] 1 appful [place] PRN PRN 01/13/24 01/16/24 Metoprolol Tartrate [Lopressor] 12.5 mg PO DAILY 01/13/24 01/16/24 Mineral Oil [Mineral Oil Enema] 1 appful [place] PRN PRN 01/13/24 01/16/24 Sulfamethox/Trimeth 800/160 1 tab PO DAILY 01/13/24 01/16/24 [Bactrim Ds] polyethylene glycoL 3350 [Miralax] 1 packet PO PRN PRN 01/13/24 01/16/24 Naloxone HCl Nasal [Narcan Nasal] 1 spray IN DAILY PRN 01/15/24 01/16/24 - Allergies Allergies/Adverse Reactions: Allergies Allergy/AdvReac Type Severity Reaction Status Date / Time aspirin Allergy Unknown Verified 01/17/24 14:22 cyclobenzaprine AdvReac Hallucinati Verified 01/17/24 14:22 [From Flexeril] ons ibuprofen AdvReac Respiratory Verified 01/17/24 14:22 pseudoephedrine AdvReac Unknown Verified 01/17/24 14:22 [From Entex T] - Social History Does the pt smoke?: No Smoking Status: Never smoker Does the pt drink ETOH?: No Does the pt have substance abuse?: Yes - Immunizations Immunizations are current?: Yes - POLST Patient has POLST: No POLST Status: Full Code PD ED PE NORMAL - Vitals Vital signs reviewed: Yes - General General: Alert and oriented X 3, Other (Ill-appearing, cachectic) - HEENT HEENT: Atraumatic, PERRL, EOMI, Other (Dry mucous membranes) - Cardiac Cardiac: Strong equal pulses, Other (Tachycardic) - Respiratory Respiratory: No respiratory distress, Clear bilaterally - Back Back: No CVA TTP - Psych Psych: Normal mood, Normal affect Results - Vitals Vitals: Vital Signs - 24 hr 01/17/24 01/17/24 14:11 16:31 Temperature 36.5 C Heart Rate 123 H 109 H Respiratory 18 14 Rate Blood Pressure 116/81 H 150/86 H O2 Saturation 99 100 Oxygen O2 Source [With Activity] Nasal cannula O2 Source [Without Activity] Nasal cannula O2 Source Nasal cannula - EKG (time done) 1458 EKG releavant findings:: EKG personally interpreted by author of this note. Relevant findings are: Rate: Rate (enter#) (120) Rhythm: Sinus tachycardia [place]: Normal QRS: Normal Ischemia: ST depression Compare to prior EKG: Unchanged from prior EKG Computer interpretation: Agree with computer - Labs Labs: Laboratory Tests 01/17/24 01/17/24 14:32 14:32 WBC 9.1 RBC 3.70 L Hgb 9.9 L Hct 32.4 L MCV 87.6 MCH 26.8 L MCHC 30.6 L RDW 15.0 Plt Count 475 H MPV 9.1 Neut # (Auto) 6.1 Lymph # (Auto) 1.5 Ocean # (Auto) 0.9 Eos # (Auto) 0.5 Baso # (Auto) 0.1 Absolute Nucleated RBC 0.00 Nucleated RBC % 0.0 Sodium 138 Potassium 2.1 L* Chloride 98 L Carbon Dioxide 29 Anion Gap 11.0 BUN 15 Creatinine 1.4 H Estimated GFR (MDRD) 52 L Glucose 94 Calcium 9.1 Magnesium 1.4 L Total Bilirubin 0.4 AST 8 L ALT 7 L Alkaline Phosphatase 70 Total Protein 6.4 Albumin 3.3 Globulin 3.1 Albumin/Globulin Ratio 1.1 Lipase 17 PD Medical Decision Making - ED course ED course: 58-year-old male presents emergency department for hypokalemia. Patient's potassium upon arrival was 2.1 he is ill-appearing very pale and very weak. He denies any chest pain or shortness of breath. ECG does show ST depression although this is similar to previous EKG. Because of how low his potassium I spoke with hospitalist Dr. Castelan who was kind enough to accept patient for hospitalization for further electrolyte management. He was given 2 g of IV magnesium here in the emergency department as well as 40 mill equivalents of IV potassium here in the emergency department. He has PICC line in place. Plan is to admit patient for ongoing IV antibiotics and electrolyte replacement. Greatly appreciate Dr. Castelan started the patient for further hospitalization patient is aware of the plan he is agreeable to be admitted Departure - Departure Disposition: [facility] DC/Xfer Clinical Impression: Hypokalemia, Hypomagnesemia
[2024-01-17] MEDS: MAGNESIUM SULFATE 2 GRAM 2 GM/50 ML BAG IV ONE ×2 (15:22→22:30)
[2024-01-17] MEDS: SODIUM CHLORIDE 0.9% 1,000 ML IV ONE (15:24)
[2024-01-17 15:41] LABS: ALBUMIN 3.3 g/dL (3.2-5.5); ALBUMIN/GLOBULIN RATIO 1.1 (1.0-2.2); BILIRUBIN,TOTAL 0.4 mg/dL (0.2-1.0); CALCIUM 9.1 mg/dL (8.5-10.3); CREATININE 1.4 mg/dL (0.6-1.3); POTASSIUM 2.1 mmol/L (3.5-4.5); TOTAL PROTEIN 6.4 g/dL (6.4-8.9)
[2024-01-17] MEDS: oxyCODONE 5 MG TABLET PO STA (16:12)
[2024-01-17] MEDS: POTASSIUM CHLORIDE INJ 40 MEQ in SODIUM CHLORIDE 0.9% 500 ML IV ONE (16:14)
[2024-01-17] MEDS ORDERED: SODIUM CHLORIDE FLUSH 0.9% 10 ML SYRINGE IVP PRN (17:05)
[2024-01-17] MEDS ORDERED: ONDANSETRON 4 MG/2 ML VIAL IVP PRN (17:05)
[2024-01-17] MEDS ORDERED: ONDANSETRON ODT 4 MG TABLET TL PRN (17:05)
[2024-01-17] MEDS ORDERED: ACETAMINOPHEN 325 MG TABLET PO PRN (17:05)
[2024-01-17] MEDS ORDERED: GUAIFENESIN 400 MG PO PRN (17:07)
[2024-01-17] MEDS ORDERED: BENZONATATE 100 MG CAPSULE PO PRN (17:07)
[2024-01-17] MEDS ORDERED: BISACODYL 10 MG SUPP PR PRN (17:07)
--- NOTE | 2024-01-17 17:25 | HISTORY & PHYSICAL EXAMINATION ---
Chief Complaint - Chief Complaint Chief Complaint: Generalized weakness History of Present Illness - Admitted From Admitted From:: ED - History Obtained From Records Reviewed: Yes History obtained from: Patient Exam Limitations: No - History of Present Illness HPI Comment/Other: Patient is a 58-year-old male with past medical history of right foot osteomyelitis on IV vancomycin and cefepime, heart failure with moderately reduced ejection fraction, COPD, CAD, asthma, EN, hypertension who presented to the ED due to complaints of back pain and generalized weakness. In the ED he was noted to have a potassium of 2.1. He was started on IV potassium 40 mill equivalents in the ED and admitted to the general floor. During my evaluation he primarily complained of low back pain. He has been receiving IV vancomycin and cefepime as an outpatient for right foot osteomyelitis that started as a ulcer and eventually invaded down to the bone. He will remain on IV antibiotics until approximately January 29. Patient is chronically on 2 L via nasal cannula for his asthma/COPD. He currently resides at [facility] in [place]. Of note patient was recently discharged from the hospital on 01/09 where he was admitted for acute hypoxic respiratory episode requiring mechanical ventilation. During this hospitalization palliative care was consulted however were unable to meet with the patient and his family as the son was unable to keep his appointments. Patient communicated to me today that he would like to be full code. History - Past Medical History Cardiovascular: reports: Congestive heart failure, Hypertension, Other Respiratory: reports: Asthma, Pneumonia, Sleep apnea, CPAP use Neuro: reports: Other Endocrine/Autoimmune: reports: Type 2 diabetes GI: reports: GERD, GI bleed : reports: Kidney stones HEENT: reports: None Psych: reports: Anxiety Musculoskeletal: reports: Fatigue, Chronic back pain Derm: reports: Other MRSA Hx?: Yes - Past Surgical History General: reports: Colonoscopy Ortho: reports: Hip replacement Neuro: reports: Other HEENT: reports: Cataracts, Tracheostomy, Other Derm: reports: Other - Family & Social History Family History: Mother: Alive and Well, Asthma Family History Comment/Other: From a previous encounter: he reported his mother also has asthma. His son has irritable bowel syndrome. Living Situation: With family (Lives with son Tad, penitentiary. Patient recently in [facility] for rehab. Has a daughter, has been multiple times. Patient was 20 years in the [employer].) Social History Notes: From a previous encounter: Patient used to live at home with his . They were for just over a year. 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 He denied any smoking and reported rare alcohol use. He does use edible cannabis - Substance History Use: Uses substance without health or social issues: Cannabis (Edibles), Methadone, Opioid - POLST Patient has POLST: No POLST Status: Full Code Meds/Allgy - Home Medications Home Medications: Ambulatory Orders Medication Instructions Recorded Confirmed Albuterol Sulfate [Proair Hfa 2 puffs INH Q4H PRN 03/30/18 01/16/24 Inhaler] Ipratropium/Albuterol [Duoneb] 3 ml PO Q4H PRN 12/20/23 01/16/24 Multivitamin with Minerals 1 tab PO DAILY 12/20/23 01/16/24 [Multivitamins with Minerals] guaiFENesin [Chest Congestion 400 mg PO Q6H PRN 12/20/23 01/16/24 Relief] Acetaminophen [Tylenol] 650 mg PO Q4HR PRN tab 01/10/24 01/16/24 Beclomethasone Dipropionate [Qvar 1 puffs INH BID #0 01/10/24 01/16/24 Redihaler (80 mcg)] Benzonatate [Tessalon] 100 mg PO TID PRN cap 01/10/24 01/16/24 Budesonide/Formoterol Fumarate 2 puffs INH BID #0 01/10/24 01/16/24 [Symbicort 160-4.5 Mcg Inhaler] Calcium Carbonate [Tums (Calcium 500 mg PO BID tab 01/10/24 01/16/24 Carbonate 500mg)] Ferrous Sulfate [Feosol] 325 mg PO DAILY #0 01/10/24 01/16/24 Fexofenadine HCl 180 mg PO DAILY #0 01/10/24 01/16/24 Fluticasone [Flonase] 1 spray [place] BID #0 01/10/24 01/16/24 Furosemide [Lasix] 20 mg PO BID #0 01/10/24 01/16/24 Ipratropium [place] 2 spray [place]ICA TID #0 01/10/24 01/16/24 Ipratropium/Albuterol [Combivent 1 puffs INH QID #0 01/10/24 01/16/24 Respimat] Megestrol [Megace] 400 mg PO DAILY 7 Days ea 01/10/24 01/16/24 Methadone [Methadone Hcl] 2.5 mg PO BID #7 tab 01/10/24 01/16/24 Mirtazapine [Remeron] 15 mg PO QPM tab 01/10/24 01/16/24 Montelukast [Singulair] 10 mg PO QPM #0 01/10/24 01/16/24 Nystatin [Mycostatin] 5 ml PO QID #0 01/10/24 01/16/24 Pantoprazole [Protonix] 40 mg PO BID #0 01/10/24 01/16/24 Sucralfate [Carafate] 1 gm PO 0700,1100,1600,2200 ea 01/10/24 01/16/24 Theophylline Anhydrous 300 mg PO BID #0 01/10/24 01/16/24 [Theophylline ER] Umeclidinium [place] [Incruse 1 inh INH DAILY #0 01/10/24 01/16/24 Ellipta] Bisacodyl Supp [Dulcolax Supp] 1 appful [place] PRN PRN 01/13/24 01/16/24 Metoprolol Tartrate [Lopressor] 12.5 mg PO DAILY 01/13/24 01/16/24 Mineral Oil [Mineral Oil Enema] 1 appful [place] PRN PRN 01/13/24 01/16/24 Sulfamethox/Trimeth 800/160 1 tab PO DAILY 01/13/24 01/16/24 [Bactrim Ds] polyethylene glycoL 3350 [Miralax] 1 packet PO PRN PRN 01/13/24 01/16/24 Naloxone HCl Nasal [Narcan Nasal] 1 spray IN DAILY PRN 01/15/24 01/16/24 - Allergies Allergies/Adverse Reactions: Allergies Allergy/AdvReac Type Severity Reaction Status Date / Time aspirin Allergy Unknown Verified 01/17/24 14:22 cyclobenzaprine AdvReac Hallucinati Verified 01/17/24 14:22 [From Flexeril] ons ibuprofen AdvReac Respiratory Verified 01/17/24 14:22 pseudoephedrine AdvReac Unknown Verified 01/17/24 14:22 [From Entex T] Review of Systems - Constitutional Constitutional: reports: Fatigue, Malaise, Weakness, Poor appetite - Cardiovascular Cariovascular: denies: Palpitations, Chest pain - Respiratory Respiratory: reports: Sputum production, Wheezing. denies: Cough - Gastrointestinal Gastrointestinal: denies: Abdominal pain - Musculoskeletal Musculoskeletal: reports: Back pain - Neurological Neurological: reports: General weakness. denies: Focal weakness - Endocrine Endocrine: denies: Polyuria - All Other Systems All Other Systems: reports: Reviewed and negative Prior Level of Functionality: Resides at [facility]. 2 person assist to scoot forward in chair. CROW is flaccid from his shoulder. Left wrist drop. Exam - Vital Signs Reviewed Vital Signs: Yes Vital Signs: Vital Signs x48h Temp Pulse Resp BP Pulse Ox O2 Flow Rate 01/17/24 17:18 36.7 C 115 H 13 144/96 H 100 2 01/17/24 16:31 109 H 14 150/86 H 100 01/17/24 14:11 36.5 C 123 H 18 116/81 H 99 - Physical Exam General Appearance: positive: Alert, Mild distress Eyes Bilateral: positive: PERRL, EOMI Respiratory: positive: Chest non-tender, Wheezes Cardiovascular: positive: No murmur, Tachycardia Abdomen: positive: Non-tender, No distention. negative: Guarding Neurologic/Psychiatric: positive: Oriented x3, CN's nml (2-12) Conclusion/Plan - Problem List (1) Hypokalemia Conclusion/Plan: --Repleting with IV and PO potassium. --Monitor on telemetry. --Exact etiology is unknown but likely related to diuresis from PO Lasix 20 mg daily which will be held. --Mg is mildly depleted, will replace. (2) Osteomyelitis Conclusion/Plan: --Receiving IV vancomycin and cefepime through his PICC line for left foot osteomyelitis as recommended by Dr. Kearney, ID at [facility]. -- Qualifiers: Osteomyelitis type: subacute Osteomyelitis location: foot Laterality: right Qualified Code(s): M86.271 - Subacute osteomyelitis, right ankle and foot (3) POP (acute kidney injury) Conclusion/Plan: --Mild POP. Baseline sCr is under 1. --Will provide gentle IV hydration. He has a history of CHF. (4) Anemia Conclusion/Plan: --Stable, has required Fe transfusion in the past. --Continue to monitor. (5) Chronic back pain Conclusion/Plan: --Will resume patient on home Methadone 2.5 mg daily. Qualifiers: Back pain location: low back pain Back pain laterality: left Sciatica presence: without sciatica Qualified Code(s): M54.50 - Low back pain, unspecified; G89.29 - Other chronic pain (6) DM type 2 (diabetes mellitus, type 2) Conclusion/Plan: --Has had problems with hypoglycemia in the past due to not eating. Will hold off on starting hypoglycemic medications. --BG do not appear excessively high on admission. --He is not on any home diabetic medications. 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 --Holding home lasix 20 mg in setting of hypoK. (8) History of asthma Conclusion/Plan: --Continued on home inhalers. --He is chronically on 2L via NC. --Will obtain CXR to r/o PNA. (9) Failure to thrive in adult Conclusion/Plan: --Was previously discharged on Megace and Remeron for 7 days for appetite stimulation. Will continue this for now. High risk for VTE given his lack of mobility and megace. DVT ppx with Lovenox. - Lab Results Fish Bones: 01/17/24 14:32 01/17/24 14:32
[2024-01-17] MEDS ORDERED: guaiFENesin 100 MG/5 ML UDC PO PRN (17:43)
[2024-01-17] MEDS ORDERED: CEFEPIME 2 GM VIAL IV SCH (18:00)
[2024-01-17] MEDS ORDERED: VANCOMYCIN 500 MG VIAL IV SCH (18:00)
--- NOTE | 2024-01-17 18:11 | PHARMACY PROGRESS NOTE ---
- Therapy Status Therapy status: Trough therapeutic Basis for treatment: Empirical Treatment indication: OSTEO PER [facility] ID Trough goal: 400-600 Concurrent antibiotics: CEFEPIME - POP Risk Risk level for Acute Kidney Injury: High Acute Kidney Injury risk factors: Other nephrotoxic agents, Baseline CrCl <50, Duration >7 days, Goal trough >15 - Monitoring and Recommendation Clinical response to treatment: I&O Previous 24 hours 01/15/24 01/16/24 01/17/24 23:59 23:59 23:59 Intake Total 1050 Balance 1050 Lab Results 01/17/24 14:32 BUN 15 Creatinine 1.4 H Estimated GFR (MDRD) 52 L Areas for additional monitoring: Acute Kidney Injury Pharmacy recommendation: Continue current regime (CONTINUE 750 MG Q12H. MOST RECENT TROUGH DRAWN TODAY, 01/16 = 17.6 THERAPEUTIC. CONTINUE TO FOLLOW SCR. ABX FOR 6 WEEKS TO END APPROX EARLY ARPIL.)
[2024-01-17] MEDS: IPRATROPIUM/ALBUTEROL 3 ML NEB INH SCH (19:35)
[2024-01-17] MEDS: FORMOTEROL FUMARATE NEB 20 MCG/2 ML INH SCH (19:35)
[2024-01-17] MEDS: BUDESONIDE 0.5 MG/2 ML NEB INH SCH (19:35)
[2024-01-17] MEDS: HYDROcod/ACETAM 5/325 MG TABLET PO PRN (20:58)
[2024-01-17] MEDS ORDERED: IPRATROPIUM INH SCH (21:00)
[2024-01-17] MEDS ORDERED: ALBUTEROL INH SCH (21:00)
[2024-01-17] MEDS: FLUTICASONE NASAL SPRAY NAS SCH (21:06)
[2024-01-17] MEDS: MIRTAZAPINE 15 MG TABLET PO SCH (21:07)
[2024-01-17] MEDS: POTASSIUM CHLORIDE 10 MEQ CAPSULE PO SCH (21:07)
[2024-01-17] MEDS: NYSTATIN 500000 UNITS/5 ML UDC PO SCH (21:07)
[2024-01-17] MEDS: MONTELUKAST 10 MG TABLET PO SCH (21:07)
[2024-01-17] MEDS: METHADONE 5 MG TABLET PO SCH (21:20)
[2024-01-17] MEDS: CEFEPIME 1 GM in SODIUM CHLORIDE 0.9% MINIBAG 100 ML IV SCH (21:30)
[2024-01-17] MEDS: VANCOMYCIN INJ 0.75 GM in SODIUM CHLORIDE 0.9% 250 ML IV SCH (22:35)
[2024-01-17] MEDS: POTASSIUM CHLOR 10 MEQ/100 ML 10 MEQ/100 ML BAG IV SCH (23:05)
[2024-01-17] MEDS: MAGNESIUM SULFATE 2 GM in SODIUM CHLORIDE 0.9% 50 ML IV ONE (23:06)
[2024-01-17] MEDS: MAGNESIUM SULFATE 1 GM in SODIUM CHLORIDE 0.9% 50 ML IV ONE (23:07)
[2024-01-18] MEDS: SODIUM CHLORIDE FLUSH 0.9% 10 ML SYRINGE IVP SCH (00:41)
[2024-01-18] MEDS: IPRATROPIUM/ALBUTEROL 3 ML NEB INH PRN (00:45)
[2024-01-18] MEDS: MULTIVITAMIN W/MINERALS TABLET PO SCH (07:41)
[2024-01-18 08:19] LABS: BASOPHILS # (AUTO) 0.1 10^3/uL (0.0-0.1); BASOPHILS % (AUTO) 1.2 %; EOSINOPHILS # (AUTO) 0.7 10^3/uL (0.0-0.7); EOSINOPHILS % (AUTO) 7.9 %; HCT - HEMATOCRIT 30.7 % (42.0-52.0); HGB - HEMOGLOBIN 9.2 g/dL (14.0-18.0); LYMPHOCYTES # (AUTO) 1.7 10^3/uL (1.5-3.5); LYMPHOCYTES % (AUTO) 18.4 %; MEAN CORPUSCULAR HEMOGLOBIN 26.8 pg (27.0-31.0); MEAN CORPUSCULAR VOLUME 89.5 fL (80.0-94.0); MEAN PLATELET VOLUME 8.7 fL (7.4-11.4); MONOCYTES # (AUTO) 0.9 10^3/uL (0.0-1.0); MONOCYTES % (AUTO) 9.6 %; NEUTROPHILS # (AUTO) 5.7 10^3/uL (1.5-6.6); NEUTROPHILS % (AUTO) 61.6 %; PLT - PLATELET COUNT 480 10^3/uL (130-450); RED BLOOD COUNT 3.43 10^6/uL (4.70-6.10); RED CELL DISTRIBUTION WIDTH 15.4 % (12.0-15.0); WHITE BLOOD COUNT 9.2 x10^3/uL (4.8-10.8)
[2024-01-18 08:27] LABS: MAGNESIUM 2.3 mg/dL (1.7-2.3)
[2024-01-18 08:33] LABS: BUN - BLOOD UREA NITROGEN 15 mg/dL (6-20); CALCIUM 8.8 mg/dL (8.5-10.3); CARBON DIOXIDE - CO2 25 mmol/L (21-32); CHLORIDE 106 mmol/L (101-111); CREATININE 1.5 mg/dL (0.6-1.3); GFR - MDRD 48 (>89); GLUCOSE 172 mg/dL (74-104); POTASSIUM 3.3 mmol/L (3.5-4.5); SODIUM 140 mmol/L (135-145)
[2024-01-18] MEDS: FERROUS SULFATE 325 MG TABLET PO SCH (08:41)
[2024-01-18] MEDS: MEGESTROL 400 MG/10 ML UDC PO SCH (08:41)
[2024-01-18 08:44] LABS: VANCOMYCIN,TROUGH 22.9 ug/mL
[2024-01-18] MEDS ORDERED: NON FORMULARY MED (Fexofenadine Hcl [Fexofenadine Hcl] 180 MG Tablet) PO SCH (09:00)
[2024-01-18] MEDS: METOPROLOL TARTRATE 25 MG TABLET PO SCH (09:00)
[2024-01-18] MEDS: ZINC SULFATE 220 MG CAPSULE PO SCH (09:23)
[2024-01-18] MEDS: ASCORBIC ACID 500 MG TABLET PO SCH (09:24)
[2024-01-18] MEDS: TRIAMCINOLONE 0.1% OINT 80 GM TUBE TOP SCH (09:24)
[2024-01-18] MEDS: ENOXAPARIN 40 MG/0.4 ML SYRINGE SUBQ SCH (10:07)
--- NOTE | 2024-01-18 10:41 | PHARMACY PROGRESS NOTE ---
- Best Possible Medication History Admit Date and Time: 01/17/24 8435 Processed by: Pharmacy Medications reviewed in ED?: No Medication History completed: Yes Patient Interview: Pt unable to participate Secondary Source(s): Physician records, Pharmacy records, Insurance records, Previous admit records, Facility MAR as ONLY source As the person ultimately responsible for medication therapy, providers are able to order a medication from an existing home medication list in [facility] via the "Reconcile Routine" prior to Confirmation of that medication by administrative support assoc. Such practice is discouraged except when the physician, in their clinical judgment, deems that a medical need exists for a medication without regard to previous use.
--- NOTE | 2024-01-18 11:25 | Discharge Plan ---
"Discharge Plan for SNF / COURTNEY - Discharge Plan And Transition Orders Problem Reviewed?: Yes Disposition: SNF DC/Xfer Condition: Good Allergies and Adverse Reactions: Allergies Allergy/AdvReac Type Severity Reaction Status Date / Time aspirin Allergy Unknown Verified 01/17/24 14:22 cyclobenzaprine AdvReac Hallucinati Verified 01/17/24 14:22 [From Flexeril] ons ibuprofen AdvReac Respiratory Verified 01/17/24 14:22 pseudoephedrine AdvReac Unknown Verified 01/17/24 14:22 [From Entex T] - SNF / COURTNEY Transition Orders Admit to (Facility): [facility] Discharge Diagnosis: Hypokalemia - started on oral supplementation at discharge. Please recheck potassium in a week. Medicare Certification Statement: I certify that Post Hospital correction care is medically necessary on a continuing basis for any of the conditions for which she/he is receiving care during hospitalization. Notify PCP of admission and forward orders to primary provider for signature. Weight on admission and: Weekly Call PCP immediately if weight increases by: 5 kg Other Notification Orders: Call PCP immediately if patient develops dyspnea, chest pain/tightness or edema. House Bowel Program: Yes Additional Bowel Program Orders: If no BM after 2 days, nurse may give M.O.M. 30ml PO PRN and/or ducolax Supp 1 MO and/or AZ 250mg P.O., and/or senna 1-2 tabs PO. On day 3 nurse may give repeat above order until residents constipation is resolved. Annual Influenza Vaccine (between Jun 29 and January 26): Yes Two-step PPD per [facility] [phone] or approved exception documents: Yes Treatments & Other Orders: Continue antibiotic orders per previous. Oxygen Orders: Maintain oxygen 88-93% Lab Tests or X-ray Orders: Please check BMP in 1 week to evaluate need for additional potassium. Medication Orders: PLEASE REFER TO THE DISCHARGE MEDICATION LIST. Insulin Orders?: No - Medications New Prescriptions: Cefepime 1 gm IV Q12H 15 Days #15 ml Potassium Chloride [Micro-K] 40 meq PO DAILY #30 cap Triamcinolone 0.1% Oint 1 applic TOP BID PRN #1 each PRN Reason: Itching - Diet Type: Geriatric Texture: Regular May have monthly special meal: Yes - Therapies | Activity Therapy: Evaluation | Treat if indicated: PT, OT Rehabilitation Potential: Return to independent living Activity: Activity as Tolerated Additional Instructions: Continue IV antibiotic regimen as previous for his left leg osteomyelitis. Please recheck potassium in a BMP in 1 week. Follow Up: Follow up with PCP in 3-5 days."
[2024-01-18] MEDS: FUROSEMIDE 20 MG TABLET PO SCH (11:32)
[2024-01-18] MEDS: LORATADINE 10 MG TABLET PO SCH (11:33)
--- NOTE | 2024-01-18 11:42 | DISCHARGE SUMMARY ---
"Discharge Summary Admit Date: 01/17/24 Discharge Date: 01/18/24 Discharging Provider: Erinn Parra Primary Care Provider: Humberto Banda Code Status: Attempt Resuscitation Condition at Discharge: Good Discharge Disposition: SNF DC/Xfer Discharge Facility Name: [facility] - DIAGNOSES Discharge Diagnoses with Status of Each Condition: Hyperkalemia - improved with PO and IV supplementation. Will send him to SNF with daily oral supplementation to take with his Lasix. - HPI History of Present Illness: Patient is a 58-year-old male with past medical history of right foot osteomyelitis on IV vancomycin and cefepime, heart failure with moderately reduced ejection fraction, COPD, CAD, asthma, EN, hypertension who presented to the ED due to complaints of back pain and generalized weakness. In the ED he was noted to have a potassium of 2.1. He was started on IV potassium 40 mill equivalents in the ED and admitted to the general floor. During my evaluation he primarily complained of low back pain. He has been receiving IV vancomycin and cefepime as an outpatient for right foot osteomyelitis that started as a ulcer and eventually invaded down to the bone. He will remain on IV antibiotics until approximately January 29. Patient is chronically on 2 L via nasal cannula for his asthma/COPD. He currently resides at [facility] in [place]. Of note patient was recently discharged from the hospital on 01/09 where he was admitted for acute hypoxic respiratory episode requiring mechanical ventilation. During this hospitalization palliative care was consulted however were unable to meet with the patient and his family as the son was unable to keep his appointments. Patient communicated to me today that he would like to be full code. - HOSPITAL COURSE Hospital Course: Patient is a 58-year-old male who presented to the ED due to complaints of weakness and lethargy. He was noted to have a potassium of 2.1 and was admitted for potassium supplementation. He received IV and p.o. potassium bring his serum potassium up to 3.2. Patient felt significantly better and he was subsequently discharged back to [facility]. While he was inpatient, he continued his IV vancomycin and cefepime for his left lower extremity osteomyelitis which she will remain on until January 29 per his infectious disease physician. We believe the etiology of his hypokalemia was his malnutrition combined with Lasix. I did discontinue his Megace on discharge as it does not appear to be helping and is presenting with a high risk of VTE. In the past patient has refused PEG tube feeding. Unfortunately he would likely continue to lose weight and suffer from severe protein calorie malnutrition. Of note, patient's condition improved rapidly which did not necessitate the full 96-hour inpatient stay. - ALLERGIES Allergies/Adverse Reactions: Allergies Allergy/AdvReac Type Severity Reaction Status Date / Time aspirin Allergy Unknown Verified 01/17/24 14:22 cyclobenzaprine AdvReac Hallucinati Verified 01/17/24 14:22 [From Flexeril] ons ibuprofen AdvReac Respiratory Verified 01/17/24 14:22 pseudoephedrine AdvReac Unknown Verified 01/17/24 14:22 [From Entex T] - MEDICATIONS Home Medications: Ambulatory Orders Medication Instructions Recorded Confirmed Albuterol Sulfate [Proair Hfa 2 puffs INH Q4H PRN 03/30/18 01/18/24 Inhaler] Ipratropium/Albuterol [Duoneb] 3 ml PO Q4H PRN 12/20/23 01/18/24 Multivitamin with Minerals 1 tab PO DAILY 12/20/23 01/18/24 [Multivitamins with Minerals] guaiFENesin [Chest Congestion 400 mg PO Q6H PRN 12/20/23 01/18/24 Relief] Acetaminophen [Tylenol] 650 mg PO Q4HR PRN tab 01/10/24 01/18/24 Beclomethasone Dipropionate [Qvar 1 puffs INH BID #0 01/10/24 01/18/24 Redihaler (80 mcg)] Benzonatate [Tessalon] 100 mg PO TID PRN cap 01/10/24 01/18/24 Budesonide/Formoterol Fumarate 2 puffs INH BID #0 01/10/24 01/18/24 [Symbicort 160-4.5 Mcg Inhaler] Calcium Carbonate [Tums (Calcium 500 mg PO BID tab 01/10/24 01/18/24 Carbonate 500mg)] Ferrous Sulfate [Feosol] 325 mg PO DAILY #0 01/10/24 01/18/24 Fexofenadine HCl 180 mg PO DAILY #0 01/10/24 01/18/24 Fluticasone [Flonase] 1 spray MONICA BID #0 01/10/24 01/18/24 Furosemide [Lasix] 20 mg PO BID #0 01/10/24 01/18/24 Ipratropium [place] 2 spray MONICA TID #0 01/10/24 01/18/24 Ipratropium/Albuterol [Combivent 1 puffs INH QID #0 01/10/24 01/18/24 Respimat] Methadone [Methadone Hcl] 2.5 mg PO BID #7 tab 01/10/24 01/18/24 Mirtazapine [Remeron] 15 mg PO QPM tab 01/10/24 01/18/24 Montelukast [Singulair] 10 mg PO QPM #0 01/10/24 01/18/24 Nystatin [Mycostatin] 5 ml PO QID #0 01/10/24 01/18/24 Pantoprazole [Protonix] 40 mg PO BID #0 01/10/24 01/18/24 Sucralfate [Carafate] 1 gm PO 0700,1100,1600,2200 ea 01/10/24 01/18/24 Theophylline Anhydrous 300 mg PO BID #0 01/10/24 01/18/24 [Theophylline ER] Umeclidinium [place] [Incruse 1 inh INH DAILY #0 01/10/24 01/18/24 Ellipta] Bisacodyl Supp [Dulcolax Supp] 1 appful [place] PRN PRN 01/13/24 01/18/24 Metoprolol Tartrate [Lopressor] 12.5 mg PO DAILY 01/13/24 01/16/24 Mineral Oil [Mineral Oil Enema] 1 appful [place] PRN PRN 01/13/24 01/18/24 polyethylene glycoL 3350 [Miralax] 1 packet PO PRN PRN 01/13/24 01/18/24 Naloxone HCl Nasal [Narcan Nasal] 1 spray IN DAILY PRN 01/15/24 01/18/24 Cefepime 1 gm IV Q12H 15 Days #15 ml 01/18/24 Potassium Chloride [Micro-K] 40 meq PO DAILY #30 cap 01/18/24 Triamcinolone 0.1% Oint 1 applic TOP BID PRN #1 each 01/18/24 Vancomycin Inj [Vancomycin] 0.75 gm IV Q12H ml 01/18/24 Home Medications Other | Comments: Continue IV antibiotics as per prior regimen. - PHYSICAL EXAM AT DISCHARGE General Appearance: positive: No acute distress, Alert Respiratory: positive: No respiratory distress, Breath sounds nml. negative: Wheezes Cardiovascular: positive: Regular rate & rhythm Abdomen: positive: Non-tender Extremities: positive: Non-tender Neurologic/Psychiatric: positive: Oriented x3 - LABS Result Diagrams: 01/18/24 08:12 01/18/24 08:12 - DIAGNOSTIC IMAGING Diagnostic Imaging Results: Final report reviewed - FOLLOW UP Follow Up: Follow up with PCP in 3-5 days. - TIME SPENT Time Spent in Discharge (Minutes): 35"
[2024-01-18 12:32] VITALS: BP 111/68; O2SAT 96
== END 2024-01-18 13:45 | DRG 641 ==
LOC: EDUNIT# → ED 14:03 → MS2 17:05
PROVIDERS: ADMIT Family Medicine; ATTEND Family Medicine
DX: E87.6 Hypokalemia (principal); I50.22 Chronic systolic (congestive) heart failure; M86.271 Subacute osteomyelitis, right ankle and foot; I50.9 Heart failure, unspecified; N17.9 Acute kidney failure, unspecified; M86.9 Osteomyelitis, unspecified; Z68.1 Body mass index [BMI] 19.9 or less, adult; E46 Unspecified protein-calorie malnutrition; T50.1X5A Adverse effect of loop [high-ceiling] diuretics, initial encounter; E83.42 Hypomagnesemia; M54.50 Low back pain, unspecified; G89.29 Other chronic pain; I11.0 Hypertensive heart disease with heart failure; E11.69 Type 2 diabetes mellitus with other specified complication; I25.10 Atherosclerotic heart disease of native coronary artery without angina pectoris; J44.9 Chronic obstructive pulmonary disease, unspecified; R62.7 Adult failure to thrive; D64.9 Anemia, unspecified; G47.33 Obstructive sleep apnea (adult) (pediatric); Z79.2 Long term (current) use of antibiotics; Z99.81 Dependence on supplemental oxygen
CPT/HCPCS: 36415; 80048; 80053; 80202; 83036; 83690; 83735; 84132; 85025; 85651; 86140; 93005; 94640; 96365; 99285; A9270; J3370; J7626

== ENCOUNTER 2024-01-18 13:49 | Outpatient (CLI) | payer MEDICARE, OTHER, MEDICAID | END 2024-01-18 23:59 | disposition home or self-care (01) | LOC: EMS 13:49 | PROVIDERS: ATTEND Internal Medicine | DX: R62.7 Adult failure to thrive (principal); E87.6 Hypokalemia; M86.9 Osteomyelitis, unspecified | CPT/HCPCS: A0425; A0428 ==

== ENCOUNTER 2024-01-20 16:59 | Outpatient (CLI) | payer MEDICARE, OTHER | END 2024-01-20 23:59 | disposition critical access hospital (66) | LOC: EMS 16:59 | DX: R06.82 Tachypnea, not elsewhere classified (principal); R06.2 Wheezing; R07.89 Other chest pain; Z74.01 Bed confinement status | CPT/HCPCS: A0425; A0427 ==

== ENCOUNTER 2024-01-20 17:05 | Emergency (ER) | payer MEDICARE, OTHER, MEDICAID ==
--- NOTE | 2024-01-20 17:31 | ED Physician Documentation ---
History of Present Illness - Stated complaint Stated Complaint: SOA - Chief complaint Chief Complaint: Resp - History obtained from History obtained from: Patient, EMS - History of Present Illness Timing: Today Pain level max: 0 Pain level now: 0 - Additonal information Additional information: Patient is a 58-year-old male who is currently on IV antibiotics for osteomyelitis. He lives at [facility]. Has a history of asthma. He states had increasing work of breathing today. 911 was called and he received a nebulizer treatment en route and currently feels better. No fevers. No change in his chronic cough. He is on 2 L of oxygen at his residential. No chest pain. No nausea or vomiting. Patient also has chronic sinus tachycardia. He was discharged from the hospital 2 days ago for hypokalemia. Review of Systems Constitutional: denies: Fever, Chills Respiratory: reports: Dyspnea, Cough (Chronic, unchanged), Wheezing GI: denies: Vomiting, Diarrhea Skin: denies: Rash Musculoskeletal: denies: Neck pain, Back pain PD PAST MEDICAL HISTORY - Past Medical History Cardiovascular: Congestive heart failure, Hypertension, Other Respiratory: Asthma, Pneumonia, Sleep apnea, CPAP use Neuro: Other Endocrine/Autoimmune: Type 2 diabetes GI: GERD, GI bleed : Kidney stones HEENT: None Psych: Anxiety Musculoskeletal: Fatigue, Chronic back pain Derm: Other - Past Surgical History Past Surgical History: No General: Colonoscopy Ortho: Hip replacement Neuro: Other HEENT: Cataracts, Tracheostomy, Other Derm: Other - Present Medications Home Medications: Ambulatory Orders Medication Instructions Recorded Confirmed Albuterol Sulfate [Proair Hfa 2 puffs INH Q4H PRN 03/30/18 01/20/24 Inhaler] Ipratropium/Albuterol [Duoneb] 3 ml PO Q4H PRN 12/20/23 01/20/24 Multivitamin with Minerals 1 tab PO DAILY 12/20/23 01/20/24 [Multivitamins with Minerals] guaiFENesin [Chest Congestion 400 mg PO Q6H PRN 12/20/23 01/20/24 Relief] Acetaminophen [Tylenol] 650 mg PO Q4HR PRN tab 01/10/24 01/20/24 Beclomethasone Dipropionate [Qvar 1 puffs INH BID #0 01/10/24 01/20/24 Redihaler (80 mcg)] Benzonatate [Tessalon] 100 mg PO TID PRN cap 01/10/24 01/20/24 Budesonide/Formoterol Fumarate 2 puffs INH BID #0 01/10/24 01/20/24 [Symbicort 160-4.5 Mcg Inhaler] Calcium Carbonate [Tums (Calcium 500 mg PO BID tab 01/10/24 01/20/24 Carbonate 500mg)] Ferrous Sulfate [Feosol] 325 mg PO DAILY #0 01/10/24 01/20/24 Fexofenadine HCl 180 mg PO DAILY #0 01/10/24 01/20/24 Fluticasone [Flonase] 1 spray MONICA BID #0 01/10/24 01/20/24 Furosemide [Lasix] 20 mg PO BID #0 01/10/24 01/20/24 Ipratropium [place] 2 spray MONICA TID #0 01/10/24 01/20/24 Ipratropium/Albuterol [Combivent 1 puffs INH QID #0 01/10/24 01/20/24 Respimat] Methadone [Methadone Hcl] 2.5 mg PO BID #7 tab 01/10/24 01/20/24 Mirtazapine [Remeron] 15 mg PO QPM tab 01/10/24 01/20/24 Montelukast [Singulair] 10 mg PO QPM #0 01/10/24 01/20/24 Nystatin [Mycostatin] 5 ml PO QID #0 01/10/24 01/20/24 Pantoprazole [Protonix] 40 mg PO BID #0 01/10/24 01/20/24 Sucralfate [Carafate] 1 gm PO 0700,1100,1600,2200 ea 01/10/24 01/20/24 Theophylline Anhydrous 300 mg PO BID #0 01/10/24 01/20/24 [Theophylline ER] Umeclidinium [place] [Incruse 1 inh INH DAILY #0 01/10/24 01/20/24 Ellipta] Bisacodyl Supp [Dulcolax Supp] 1 appful [place] PRN PRN 01/13/24 01/20/24 Metoprolol Tartrate [Lopressor] 12.5 mg PO DAILY 01/13/24 01/20/24 Mineral Oil [Mineral Oil Enema] 1 appful [place] PRN PRN 01/13/24 01/20/24 polyethylene glycoL 3350 [Miralax] 1 packet PO PRN PRN 01/13/24 01/20/24 Naloxone HCl Nasal [Narcan Nasal] 1 spray IN DAILY PRN 01/15/24 01/20/24 Cefepime 1 gm IV Q12H 15 Days #15 ml 01/18/24 01/20/24 Potassium Chloride [Micro-K] 40 meq PO DAILY #30 cap 01/18/24 01/20/24 Triamcinolone 0.1% Oint 1 applic TOP BID PRN #1 each 01/18/24 01/20/24 Vancomycin Inj [Vancomycin] 0.75 gm IV Q12H ml 01/18/24 01/20/24 predniSONE [Deltasone] 10 mg PO [id number] #42 tab 01/20/24 - Allergies Allergies/Adverse Reactions: Allergies Allergy/AdvReac Type Severity Reaction Status Date / Time aspirin Allergy Unknown Verified 01/20/24 17:07 cyclobenzaprine AdvReac Hallucinati Verified 01/20/24 17:07 [From Flexeril] ons ibuprofen AdvReac Respiratory Verified 01/20/24 17:07 pseudoephedrine AdvReac Unknown Verified 01/20/24 17:07 [From Entex T] - Social History Does the pt smoke?: No Smoking Status: Never smoker Does the pt drink ETOH?: No Does the pt have substance abuse?: Yes - Immunizations Immunizations are current?: Yes - POLST Patient has POLST: No POLST Status: Full Code PD ED PE NORMAL - Vitals Vital signs reviewed: Yes - General General: Alert and oriented X 3, No acute distress - HEENT HEENT: Moist mucous membranes - Neck Neck: Supple, no meningeal sign - Cardiac Cardiac: RRR, Strong equal pulses - Respiratory Respiratory: No respiratory distress, Clear bilaterally - Abdomen Abdomen: Soft, Non tender, Non distended - Derm Derm: Warm and dry - Neuro Neuro: Alert and oriented X 3 - Psych Psych: Normal mood, Normal affect Results - Vitals Vitals: Vital Signs - 24 hr 01/20/24 01/20/24 01/20/24 17:12 17:15 17:44 Temperature 36.6 C Heart Rate 132 H 128 H Respiratory 20 22 Rate Blood Pressure 114/80 O2 Saturation 100 96 If not protocol : Oxygen Flow, liters/minute 01/20/24 01/20/24 01/20/24 18:53 20:00 20:15 Temperature Heart Rate 116 H 112 H 112 H Respiratory 17 17 18 Rate Blood Pressure 107/68 107/68 O2 Saturation 100 100 100 If not protocol 2 : Oxygen Flow, liters/minute Oxygen O2 Source [With Activity] Nasal cannula O2 Source [Without Activity] Nasal cannula O2 Source Room air Oxygen Flow Rate 2 - Labs Labs: Laboratory Tests 01/20/24 01/20/24 17:34 17:34 WBC 9.5 RBC 3.50 L Hgb 9.3 L Hct 31.0 L MCV 88.6 MCH 26.6 L MCHC 30.0 L RDW 15.6 H Plt Count 587 H MPV 9.2 Neut # (Auto) 6.8 H Lymph # (Auto) 1.3 L Evans # (Auto) 1.0 Eos # (Auto) 0.3 Baso # (Auto) 0.1 Absolute Nucleated RBC 0.00 Nucleated RBC % 0.0 Sodium 139 Potassium 3.2 L Chloride 105 Carbon Dioxide 25 Anion Gap 9.0 BUN 17 Creatinine 1.7 H Estimated GFR (MDRD) 41 L Glucose 132 H Calcium 9.3 Phosphorus 2.4 L Magnesium 1.6 L Total Bilirubin 0.3 AST 8 L ALT 6 L Alkaline Phosphatase 72 Total Protein 6.1 L Albumin 2.9 L Globulin 3.2 Albumin/Globulin Ratio 0.9 L Lipase 20 - Rads (name of study) cxr Relevant Findings:: Final report received, See rad report (Persistent interstitial opacities may reflect chronic lung disease versus unresolved infection. ) PD Medical Decision Making - ED course Complexity details: reviewed results, re-evaluated patient, considered differential, d/w patient ED course: 58-year-old male presents to the emergency department stating he had increased work of breathing prior to arrival. Resolved with a nebulizer treatment from EMS. Wears 2 L of nasal oxygen at baseline. He is requesting steroids. He was given dexamethasone here. Observed for several hours with no return of increased work of breathing. No evidence of pneumonia. No significant lab abnormalities other than mild hypomagnesemia. Magnesium replaced. Will place him on a steroid taper. No indication for antibiotics. Patient counseled regarding signs and symptoms for which I believe and urgent re-evaluation would be necessary. Patient with good understanding of and agreement to plan and is comfortable going home at this time This document was made in part using voice recognition software. While efforts are made to proofread this document, sound alike and grammatical errors may occur. Departure - Departure Disposition: 01 Home, Self Care Clinical Impression: Severe persistent asthma Qualifiers: Asthma complication type: with acute exacerbation Qualified Code(s): J45.51 - Severe persistent asthma with (acute) exacerbation Condition: Good Instructions: ED Reactive Airway Disease Follow-Up: your,doctor in 2-3 days [Other] Prescriptions: predniSONE [Deltasone] 10 mg PO [id number] #42 tab Comments: Your prescription was sent to [facility] and you are given a dose of dexamethasone tonight. Please continue your nebulizer treatments as currently prescribed. Will start you on a steroid taper tomorrow. You are to follow-up with your doctor this week to adjust your asthma/COPD medications. Forms: PCP List Discharge Date/Time: 01/20/24 20:15
[2024-01-20 17:40] LABS: BASOPHILS # (AUTO) 0.1 10^3/uL (0.0-0.1); BASOPHILS % (AUTO) 0.8 %; EOSINOPHILS # (AUTO) 0.3 10^3/uL (0.0-0.7); EOSINOPHILS % (AUTO) 3.2 %; HGB - HEMOGLOBIN 9.3 g/dL (14.0-18.0); LYMPHOCYTES # (AUTO) 1.3 10^3/uL (1.5-3.5); LYMPHOCYTES % (AUTO) 13.4 %; MEAN CORPUSCULAR HEMOGLOBIN 26.6 pg (27.0-31.0); MEAN CORPUSCULAR VOLUME 88.6 fL (80.0-94.0); MEAN PLATELET VOLUME 9.2 fL (7.4-11.4); MONOCYTES % (AUTO) 10.5 %; NEUTROPHILS # (AUTO) 6.8 10^3/uL (1.5-6.6); NEUTROPHILS % (AUTO) 71.2 %; PLT - PLATELET COUNT 587 10^3/uL (130-450); RED CELL DISTRIBUTION WIDTH 15.6 % (12.0-15.0); WHITE BLOOD COUNT 9.5 x10^3/uL (4.8-10.8)
[2024-01-20 18:00] LABS: ALBUMIN 2.9 g/dL (3.2-5.5); ALBUMIN/GLOBULIN RATIO 0.9 (1.0-2.2); BILIRUBIN,TOTAL 0.3 mg/dL (0.2-1.0); CALCIUM 9.3 mg/dL (8.5-10.3); CREATININE 1.7 mg/dL (0.6-1.3); MAGNESIUM 1.6 mg/dL (1.7-2.3); PHOSPHORUS 2.4 mg/dL (2.5-5.0); POTASSIUM 3.2 mmol/L (3.5-4.5); TOTAL PROTEIN 6.1 g/dL (6.4-8.9)
--- NOTE | 2024-01-20 18:18 | XRAY Report ---
PROCEDURE: Chest 1V INDICATIONS: dyspnea TECHNIQUE: One view of the chest was acquired. COMPARISON: January 15, 2024, January 12, 2024, January 11, 2024 FINDINGS: Surgical changes and devices: Left PICC with the tip within the atria. Lungs and pleura: No pleural effusions or pneumothorax. No focal consolidation. Bilateral interstiti al markings Mediastinum: Mediastinal contours appear normal. Heart size is normal. Bones and chest wall: No suspicious bony lesions. Overlying soft tissues appear unremarkable. Cer vical fixation. IMPRESSION: Persistent interstitial opacities may reflect chronic lung disease versus unresolved infection. Reviewed by: Ben Rudolph MD on 01/20/2024 5:16 PM SANDR[facility] Approved by: Ben Rudolph MD on 01/20/2024 5:16 PM SANDRINE Station ID: [id number]
[2024-01-20] MEDS: MAGNESIUM SULFATE 2 GRAM 2 GM/50 ML BAG IV ONE (18:19)
[2024-01-20] MEDS: SODIUM CHLORIDE 0.9% 1,000 ML IV STA (18:20)
[2024-01-20] MEDS: DEXAMETHASONE 10 MG/ML VIAL IVP STA (18:20)
[2024-01-20 19:00] VITALS: O2SAT 100
[2024-01-20 20:18] VITALS: BP 107/68
== END 2024-01-20 20:15 | disposition home or self-care (01) ==
LOC: EDUNIT# → ED 17:05
DX: J45.51 Severe persistent asthma with (acute) exacerbation (principal); M86.9 Osteomyelitis, unspecified; I10 Essential (primary) hypertension; E11.9 Type 2 diabetes mellitus without complications; Z99.81 Dependence on supplemental oxygen
CPT/HCPCS: 36415; 80053; 83690; 83735; 84100; 85025; 96365; 96375; 99284

== ENCOUNTER 2024-01-20 20:23 | Outpatient (CLI) | payer MEDICARE, OTHER | END 2024-01-20 20:24 | disposition home or self-care (01) | LOC: EMS 20:23 | PROVIDERS: ATTEND Emergency Medicine | DX: J44.9 Chronic obstructive pulmonary disease, unspecified (principal); Z99.81 Dependence on supplemental oxygen; M86.9 Osteomyelitis, unspecified; Z74.01 Bed confinement status | CPT/HCPCS: A0425; A0428 ==

== ENCOUNTER 2024-01-21 23:21 | Outpatient (CLI) | payer MEDICARE, OTHER | END 2024-01-21 23:59 | disposition critical access hospital (66) | LOC: EMS 23:21 | DX: R06.02 Shortness of breath (principal) | CPT/HCPCS: A0425; A0429 ==

== ENCOUNTER 2024-01-21 23:28 | Inpatient (IN) | payer MEDICARE, OTHER ==
[2024-01-22 00:04] LABS: BASOPHILS % (AUTO) 0.1 %; HCT - HEMATOCRIT 30.4 % (42.0-52.0); HGB - HEMOGLOBIN 9.1 g/dL (14.0-18.0); LYMPHOCYTES # (AUTO) 0.4 10^3/uL (1.5-3.5); LYMPHOCYTES % (AUTO) 5.6 %; MEAN CORPUSCULAR HEMOGLOBIN 26.5 pg (27.0-31.0); MEAN CORPUSCULAR HGB CONC 29.9 g/dL (32.0-36.0); MEAN CORPUSCULAR VOLUME 88.4 fL (80.0-94.0); MEAN PLATELET VOLUME 9.2 fL (7.4-11.4); MONOCYTES # (AUTO) 0.2 10^3/uL (0.0-1.0); MONOCYTES % (AUTO) 2.1 %; NEUTROPHILS # (AUTO) 7.1 10^3/uL (1.5-6.6); NEUTROPHILS % (AUTO) 91.4 %; PLT - PLATELET COUNT 590 10^3/uL (130-450); RED BLOOD COUNT 3.44 10^6/uL (4.70-6.10); RED CELL DISTRIBUTION WIDTH 15.4 % (12.0-15.0); WHITE BLOOD COUNT 7.8 x10^3/uL (4.8-10.8)
[2024-01-22 00:21] LABS: ALBUMIN 3.1 g/dL (3.2-5.5); BILIRUBIN,TOTAL 0.3 mg/dL (0.2-1.0); CALCIUM 8.9 mg/dL (8.5-10.3); CREATININE 2.3 mg/dL (0.6-1.3); POTASSIUM 3.6 mmol/L (3.5-4.5); TOTAL PROTEIN 6.3 g/dL (6.4-8.9)
[2024-01-22] MEDS: SODIUM CHLORIDE 0.9% 1,000 ML IV STA (00:37)
[2024-01-22] MEDS: METOPROLOL 5 MG/5 ML VIAL IVP STA (00:37)
--- NOTE | 2024-01-22 00:39 | XRAY Report ---
PROCEDURE: Chest 1V INDICATIONS: SOA TECHNIQUE: One view of the chest was acquired. COMPARISON: 01/20/2024, 01/02/2024 FINDINGS: Surgical changes and devices: Left upper extremity approach PICC tip projects over the low SVC. ACDF of the lower cervical spine. Lungs and pleura: No pleural effusions or pneumothorax. Stable bilateral interstitial markings. Mediastinum: Mediastinal contours appear normal. Heart size is normal. Bones and chest wall: No suspicious bony lesions. Overlying soft tissues appear unremarkable. IMPRESSION: No acute cardiopulmonary process. Stable bilateral interstitial markings, probably scarring. Reviewed by: Vishal Ochoa MD on 01/22/2024 12:37 AM PDT Approved by: Vishal Ochoa MD on 01/22/2024 12:37 AM PDT Station ID: [id number]
--- NOTE | 2024-01-22 01:24 | ED Physician Documentation ---
History of Present Illness - Stated complaint Stated Complaint: SOA - Chief complaint Chief Complaint: Resp - History obtained from History obtained from: Patient - Additonal information Additional information: Patient is a 58-year-old male with a history of asthma presenting for evaluation of shortness of air. Patient states he woke up in middle night feeling short of breath. He states that at [facility] they have not been giving him his nebulizer treatments very often. He has recently been seen here for similar complaints. He was given a neb treatment by EMS with improvement.He has had a cough but this is only been productive of clear sputum. He currently has a PICC line in place and is receiving IV antibiotics for treatment of osteomyelitis. He has had numerous recent ED visits including admission a few days ago for hypokalemia. Review of Systems Constitutional: denies: Fever Cardiac: denies: Chest pain / pressure Respiratory: reports: Dyspnea, Cough GI: denies: Abdominal Pain, Vomiting Neurologic: reports: Generalized weakness PD PAST MEDICAL HISTORY - Past Medical History Cardiovascular: Congestive heart failure, Hypertension, Other Respiratory: Asthma, Pneumonia, Sleep apnea, CPAP use Neuro: Other Endocrine/Autoimmune: Type 2 diabetes GI: GERD, GI bleed : Kidney stones HEENT: None Psych: Anxiety Musculoskeletal: Fatigue, Chronic back pain Derm: Other - Past Surgical History Past Surgical History: No General: Colonoscopy Ortho: Hip replacement Neuro: Other HEENT: Cataracts, Tracheostomy, Other Derm: Other - Present Medications Home Medications: Ambulatory Orders Medication Instructions Recorded Confirmed Albuterol Sulfate [Proair Hfa 2 puffs INH Q4H PRN 03/30/18 01/20/24 Inhaler] Ipratropium/Albuterol [Duoneb] 3 ml PO Q4H PRN 12/20/23 01/20/24 Multivitamin with Minerals 1 tab PO DAILY 12/20/23 01/20/24 [Multivitamins with Minerals] guaiFENesin [Chest Congestion 400 mg PO Q6H PRN 12/20/23 01/20/24 Relief] Acetaminophen [Tylenol] 650 mg PO Q4HR PRN tab 01/10/24 01/20/24 Beclomethasone Dipropionate [Qvar 1 puffs INH BID #0 01/10/24 01/20/24 Redihaler (80 mcg)] Benzonatate [Tessalon] 100 mg PO TID PRN cap 01/10/24 01/20/24 Budesonide/Formoterol Fumarate 2 puffs INH BID #0 01/10/24 01/20/24 [Symbicort 160-4.5 Mcg Inhaler] Calcium Carbonate [Tums (Calcium 500 mg PO BID tab 01/10/24 01/20/24 Carbonate 500mg)] Ferrous Sulfate [Feosol] 325 mg PO DAILY #0 01/10/24 01/20/24 Fexofenadine HCl 180 mg PO DAILY #0 01/10/24 01/20/24 Fluticasone [Flonase] 1 spray MONICA BID #0 01/10/24 01/20/24 Furosemide [Lasix] 20 mg PO BID #0 01/10/24 01/20/24 Ipratropium [place] 2 spray MONICA TID #0 01/10/24 01/20/24 Ipratropium/Albuterol [Combivent 1 puffs INH QID #0 01/10/24 01/20/24 Respimat] Methadone [Methadone Hcl] 2.5 mg PO BID #7 tab 01/10/24 01/20/24 Mirtazapine [Remeron] 15 mg PO QPM tab 01/10/24 01/20/24 Montelukast [Singulair] 10 mg PO QPM #0 01/10/24 01/20/24 Nystatin [Mycostatin] 5 ml PO QID #0 01/10/24 01/20/24 Pantoprazole [Protonix] 40 mg PO BID #0 01/10/24 01/20/24 Sucralfate [Carafate] 1 gm PO 0700,1100,1600,2200 ea 01/10/24 01/20/24 Theophylline Anhydrous 300 mg PO BID #0 01/10/24 01/20/24 [Theophylline ER] Umeclidinium [place] [Incruse 1 inh INH DAILY #0 01/10/24 01/20/24 Ellipta] Bisacodyl Supp [Dulcolax Supp] 1 appful [place] PRN PRN 01/13/24 01/20/24 Metoprolol Tartrate [Lopressor] 12.5 mg PO DAILY 01/13/24 01/20/24 Mineral Oil [Mineral Oil Enema] 1 appful SC PRN PRN 01/13/24 01/20/24 polyethylene glycoL 3350 [Miralax] 1 packet PO PRN PRN 01/13/24 01/20/24 Naloxone HCl Nasal [Narcan Nasal] 1 spray IN DAILY PRN 01/15/24 01/20/24 Cefepime 1 gm IV Q12H 15 Days #15 ml 01/18/24 01/20/24 Potassium Chloride [Micro-K] 40 meq PO DAILY #30 cap 01/18/24 01/20/24 Triamcinolone 0.1% Oint 1 applic TOP BID PRN #1 each 01/18/24 01/20/24 Vancomycin Inj [Vancomycin] 0.75 gm IV Q12H ml 01/18/24 01/20/24 predniSONE [Deltasone] 10 mg PO [id number] #42 tab 01/20/24 - Allergies Allergies/Adverse Reactions: Allergies Allergy/AdvReac Type Severity Reaction Status Date / Time aspirin Allergy Unknown Verified 01/22/24 01:33 cyclobenzaprine AdvReac Hallucinati Verified 01/22/24 01:33 [From Flexeril] ons ibuprofen AdvReac Respiratory Verified 01/22/24 01:33 pseudoephedrine AdvReac Unknown Verified 01/22/24 01:33 [From Entex T] - Social History Does the pt smoke?: No Smoking Status: Never smoker Does the pt drink ETOH?: No Does the pt have substance abuse?: Yes - Immunizations Immunizations are current?: Yes - POLST Patient has POLST: No POLST Status: Full Code PD ED PE NORMAL - General General: Alert and oriented X 3, No acute distress, Other (Frail, chronically ill-appearing) - HEENT HEENT: Atraumatic, Moist mucous membranes, Pharynx benign - Neck Neck: Supple, no meningeal sign - Cardiac Cardiac: Other (Tachycardic, regular rhythm) - Respiratory Respiratory: No respiratory distress, Clear bilaterally - Abdomen Abdomen: Normal bowel sounds, Soft, Non tender, Non distended Results - Vitals Vitals: Vital Signs - 24 hr 01/21/24 01/22/24 01/22/24 23:34 00:30 00:58 Temperature 36.4 C L Heart Rate 146 H 143 H 126 H Respiratory 18 19 19 Rate Blood Pressure 118/69 120/81 H 131/88 H O2 Saturation 96 98 98 If not protocol 2 2 : Oxygen Flow, liters/minute 01/22/24 01:20 Temperature Heart Rate 121 H Respiratory 18 Rate Blood Pressure 131/90 H O2 Saturation 99 If not protocol 2 : Oxygen Flow, liters/minute Oxygen O2 Source [With Activity] Nasal cannula O2 Source [Without Activity] Nasal cannula O2 Source Nasal cannula Oxygen Flow Rate 2 - EKG (time done) 2350 EKG releavant findings:: EKG personally interpreted by author of this note. Relevant findings are: Rate 147, sinus tachycardia, no STEMI - Labs Labs: Laboratory Tests 01/22/24 01/22/24 01/22/24 00:00 00:00 00:00 WBC 7.8 RBC 3.44 L Hgb 9.1 L Hct 30.4 L MCV 88.4 MCH 26.5 L MCHC 29.9 L RDW 15.4 H Plt Count 590 H MPV 9.2 Neut # (Auto) 7.1 H Lymph # (Auto) 0.4 L [place] # (Auto) 0.2 Eos # (Auto) 0.0 Baso # (Auto) 0.0 Absolute Nucleated RBC 0.00 Nucleated RBC % 0.0 Sodium 138 Potassium 3.6 Chloride 104 Carbon Dioxide 21 Anion Gap 13.0 BUN 28 H Creatinine 2.3 H Estimated GFR (MDRD) 29 L Glucose 234 H Calcium 8.9 Total Bilirubin 0.3 AST 8 L ALT 6 L Alkaline Phosphatase 69 B-Natriuretic Peptide 81 Total Protein 6.3 L Albumin 3.1 L Globulin 3.2 Albumin/Globulin Ratio 1.0 Lipase 22 PD Medical Decision Making - ED course Complexity details: reviewed results, re-evaluated patient, d/w patient ED course: Patient is a 58-year-old male with multiple chronic medical conditions presenting for evaluation of feeling short of air and weak. He has had numerous visits to the emergency department recently with similar complaints. He is currently receiving IV antibiotics for osteomyelitis. He he also has a history of asthma and is on oxygen. Shortness of air improved prior to my evaluation after receiving a neb treatment from EMS. It is noted that he is quite tachycardic. EKG demonstrates sinus tachycardia. On review of recent visits and admissions patient has often been tachycardic including an admission in November where his heart rate was above 100 quite consistently. Heart rate has ranged between 100-150 primarily. He is on small dose of metoprolol.Patient was given a dose of IV metoprolol with improvement in heart rate from 150s to 120s. Chest x-ray negative for pneumonia. CBC, chemistries were obtained and reviewed. Significant for worsening renal function. Creatinine is 2.3. Even as recently as earlier this month patient's renal function was normal. He has had somewhat of poor oral intake at [facility] and given has required admission here recently for hypokalemia. Given such a significant change in his renal function feel patient warrants observation. No chest pain to suggest ACS. Tachycardia seems to be going on for several weeks.Discussed with admitting hospitalist, Dr. Lim who agrees to admit for further management. Departure - Departure Disposition: [facility] DC/Xfer Clinical Impression: Acute renal failure, Sinus tachycardia Condition: Good Discharge Date/Time: 01/22/24 02:50
--- NOTE | 2024-01-22 01:31 | HISTORY & PHYSICAL EXAMINATION ---
Chief Complaint - Chief Complaint Chief Complaint: Shortness of breath History of Present Illness - Admitted From Admitted From:: ER - History Obtained From Records Reviewed: Yes History obtained from: Pt, staff, chart Exam Limitations: Virtual exam - History of Present Illness HPI Comment/Other: H&P was conducted via video remotely, using Access Cart. Patient is in [place]. Physician is in [place]. No one is at bedside. 58 yo M with PMH of R Foot Osteomyelitis on IV Vanco/Cefepime, HFrEF, CAD, COPD/Asthma on home O2 2L NC, EN, HTN, chronic LBP, NICOLE, DM type 2, FTT presented from [facility] to the ER with c/o 1 day h/o Shortness of breath. Pt was recently hospitalized from 01/17/24-01/18/24 for Hypokalemia and has had numer ous visits to the ER. Pt woke up in the middle of the night with c/o Shortness of breath, chest tightness. +palpitations. He complains that he has not received many nebs at the [facility]. +chronic dry cough. No sputum. No F/C. No abdo pain/N/V. Pt says that he has been eating and drinking pretty well, but that he coughs whenever he eats or drinks. +trouble swallowing. +weakness, generalized. No change in BMs or urination. In the ER, HR 146, Hgb 9.1, MCH 26.5, CR 2.3, Glc 234 CXR: NAD Pt was given IVF, Metoprolol 5 mg IV x 1 in the ER. History - Past Medical History Cardiovascular: reports: Congestive heart failure, Hypertension, Other Respiratory: reports: Asthma, Pneumonia, Sleep apnea, CPAP use Neuro: reports: Other Endocrine/Autoimmune: reports: Type 2 diabetes GI: reports: GERD, GI bleed : reports: Kidney stones HEENT: reports: None Psych: reports: Anxiety Musculoskeletal: reports: Fatigue, Chronic back pain Derm: reports: Other MRSA Hx?: Yes - Past Surgical History General: reports: Colonoscopy Ortho: reports: Hip replacement Neuro: reports: Other HEENT: reports: Cataracts, Tracheostomy, Other Derm: reports: Other - Family & Social History Family History: Mother: Alive and Well, Asthma Family History Comment/Other: From a previous encounter: he reported his mother also has asthma. His son has irritable bowel syndrome. Living Situation: With family (Lives with son Tad, terminal operations manager. Patient recently in [facility] for rehab. Has a daughter, has been multiple times. Patient was 20 years in the [place].) Social History Notes: From a previous encounter: Patient used to live at home with his . They were for just over a year. 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 He denied any smoking and reported rare alcohol use. He does use edible cannabis - Substance History Use: Uses substance without health or social issues: Cannabis (Edibles), Methadone, Opioid - POLST Patient has POLST: No POLST Status: Full Code Meds/Allgy - Home Medications Home Medications: Ambulatory Orders Medication Instructions Recorded Confirmed Albuterol Sulfate [Proair Hfa 2 puffs INH Q4H PRN 03/30/18 01/20/24 Inhaler] Ipratropium/Albuterol [Duoneb] 3 ml PO Q4H PRN 12/20/23 01/20/24 Multivitamin with Minerals 1 tab PO DAILY 12/20/23 01/20/24 [Multivitamins with Minerals] guaiFENesin [Chest Congestion 400 mg PO Q6H PRN 12/20/23 01/20/24 Relief] Acetaminophen [Tylenol] 650 mg PO Q4HR PRN tab 01/10/24 01/20/24 Beclomethasone Dipropionate [Qvar 1 puffs INH BID #0 01/10/24 01/20/24 Redihaler (80 mcg)] Benzonatate [Tessalon] 100 mg PO TID PRN cap 01/10/24 01/20/24 Budesonide/Formoterol Fumarate 2 puffs INH BID #0 01/10/24 01/20/24 [Symbicort 160-4.5 Mcg Inhaler] Calcium Carbonate [Tums (Calcium 500 mg PO BID tab 01/10/24 01/20/24 Carbonate 500mg)] Ferrous Sulfate [Feosol] 325 mg PO DAILY #0 01/10/24 01/20/24 Fexofenadine HCl 180 mg PO DAILY #0 01/10/24 01/20/24 Fluticasone [Flonase] 1 spray MONICA BID #0 01/10/24 01/20/24 Furosemide [Lasix] 20 mg PO BID #0 01/10/24 01/20/24 Ipratropium [place] 2 spray MONICA TID #0 01/10/24 01/20/24 Ipratropium/Albuterol [Combivent 1 puffs INH QID #0 01/10/24 01/20/24 Respimat] Methadone [Methadone Hcl] 2.5 mg PO BID #7 tab 01/10/24 01/20/24 Mirtazapine [Remeron] 15 mg PO QPM tab 01/10/24 01/20/24 Montelukast [Singulair] 10 mg PO QPM #0 01/10/24 01/20/24 Nystatin [Mycostatin] 5 ml PO QID #0 01/10/24 01/20/24 Pantoprazole [Protonix] 40 mg PO BID #0 01/10/24 01/20/24 Sucralfate [Carafate] 1 gm PO 0700,1100,1600,2200 ea 01/10/24 01/20/24 Theophylline Anhydrous 300 mg PO BID #0 01/10/24 01/20/24 [Theophylline ER] Umeclidinium [place] [Incruse 1 inh INH DAILY #0 01/10/24 01/20/24 Ellipta] Bisacodyl Supp [Dulcolax Supp] 1 appful [place] PRN PRN 01/13/24 01/20/24 Metoprolol Tartrate [Lopressor] 12.5 mg PO DAILY 01/13/24 01/20/24 Mineral Oil [Mineral Oil Enema] 1 appful [place] PRN PRN 01/13/24 01/20/24 polyethylene glycoL 3350 [Miralax] 1 packet PO PRN PRN 01/13/24 01/20/24 Naloxone HCl Nasal [Narcan Nasal] 1 spray IN DAILY PRN 01/15/24 01/20/24 Cefepime 1 gm IV Q12H 15 Days #15 ml 01/18/24 01/20/24 Potassium Chloride [Micro-K] 40 meq PO DAILY #30 cap 01/18/24 01/20/24 Triamcinolone 0.1% Oint 1 applic TOP BID PRN #1 each 01/18/24 01/20/24 Vancomycin Inj [Vancomycin] 0.75 gm IV Q12H ml 01/18/24 01/20/24 predniSONE [Deltasone] 10 mg PO [id number] #42 tab 01/20/24 - Allergies Allergies/Adverse Reactions: Allergies Allergy/AdvReac Type Severity Reaction Status Date / Time aspirin Allergy Unknown Verified 01/22/24 01:33 cyclobenzaprine AdvReac Hallucinati Verified 01/22/24 01:33 [From Flexeril] ons ibuprofen AdvReac Respiratory Verified 01/22/24 01:33 pseudoephedrine AdvReac Unknown Verified 01/22/24 01:33 [From Entex T] Review of Systems - All Other Systems All Other Systems: reports: Reviewed and negative Exam - Vital Signs Reviewed Vital Signs: Yes Vital Signs: Vital Signs x48h Temp Pulse Resp BP Pulse Ox O2 Flow Rate 01/22/24 01:20 121 H 18 131/90 H 99 2 01/22/24 00:58 126 H 19 131/88 H 98 2 01/22/24 00:30 143 H 19 120/81 H 98 2 01/21/24 23:34 36.4 C L 146 H 18 118/69 96 - Physical Exam General Appearance: positive: No acute distress, Alert Eyes Bilateral: positive: EOMI, No scleral icterus ENT: positive: Dry mucous membranes Respiratory: positive: Other ( Access cart stethoscope not working; per ER Provider: CTA B/L) Cardiovascular: positive: Other (Access cart stethoscope not working; per ER Provider: RR, Tachycardia, no murmurs) Abdomen: positive: Other (per ER Provider: non-distended, NT, Soft) Extremities: positive: Other (per ER Provider: moves all extrem, no edema) Neurologic/Psychiatric: positive: Oriented x3, Other (per ER Provider: NFD) Conclusion/Plan - Problem List (1) Acute renal failure Conclusion/Plan: Acute Renal Failure -Pt was given IVF in the ER. -CR 2.3; baseline: normal -admit to Med Tele -continue IVF -hold home medications: Lasix -avoid nephrotoxins -Renal U/S ordered Sinus Tachycardia Chest pressure HFrEF CAD HTN -HR 146 -CXR: NAD -EKG: Sinus Tachy at 147 with strain -Pt was given Metoprolol 5 mg IV x 1 in the ER. -TTE from November showed LVEF 35-40%. -monitor on telemetry -serial Troponins x 3 ordered -pt allergic to ASA -NTG PRN -EKG PRN CP -Echo ordered for AM -Metroprolol IV q6hr PRN at first; may need to be on drip if HR not controlled -continue home medications: Metoprolol--increase to 12.5 mg PO BID (from QD) -hold home medications: Lasix d/t ARF -pt has tolerated IVF in ER so far; monitor on IVF Shortness of breath COPD/Asthma on home O2 2L NC -CXR: NAD -Resp viral panel ordered -continue O2 support -Duonebs PRN -continue home meds: steroid MDI, Singulair, Incruse, TheoDur, nebs, Prednisone GERD Dysphagia -says that he coughs whenever he eats or drinks, +trouble swallowing -Speech Therapy consult -continue home medications: PPI, Sucralfate Hyperglycemia DM type 2 -Glc 234 -not on home medications -accuchecks, SS Insulin, Hypoglycemic protocol -check Hgba1c R Foot Osteomyelitis -continue IV Vanco/Cefepime via PICC -continue F/u with ID Chronic LBP -continue home medications: Methadone -add Lidocaine patch NICOLE -h/o iron transfusions -Hgb 9.1, MCH 26.5 -check iron level -continue home medications: iron FTT Weakness -continue home medications: Remeron -Major Gifts Officer consult -PT/OT eval VTE Prophylaxis: Hep SQ Code Status: Full Code ~Ananya Lim MD Hospitalist - Lab Results Lab results reviewed: Yes Fish Bones: 01/22/24 00:00 01/22/24 00:00
[2024-01-22] MEDS ORDERED: BISACODYL 10 MG SUPP PR PRN (01:57)
[2024-01-22] MEDS ORDERED: NALOXONE HCL NASAL SPRAY KIT NAS PRN (01:57)
[2024-01-22] MEDS ORDERED: CEFEPIME 2 GM VIAL IV SCH (02:00)
[2024-01-22] MEDS ORDERED: VANCOMYCIN 1 GM VIAL IV SCH (02:00)
[2024-01-22] MEDS ORDERED: TRIAMCINOLONE 0.1% CREAM 15 GM TUBE TOP PRN (02:53)
[2024-01-22] MEDS ORDERED: NITROGLYCERIN SL 0.4 MG TABLET SL PRN (02:59)
[2024-01-22 03:01] LABS: ABG PH 7.49 (7.35-7.45)
[2024-01-22 03:02] LABS: ABG BASE EXCESS -3.6 mmol/L (-2.0-3.0); ABG HCO3 19.1 mmol/L (22.0-26.0); ABG OXYGEN SATURATION 97 % (94-98); ABG PCO2 26 mmHg (34-45); ABG PO2 89 mmHg (80-100); ABG TCO2 19.9 MMOL/L (21.0-29.0); ALLEN TEST POSITIVE
[2024-01-22] MEDS: CEFEPIME 1 GM in SODIUM CHLORIDE 0.9% MINIBAG 100 ML IV SCH (03:06)
[2024-01-22] MEDS: SODIUM CHLORIDE 0.9% 1,000 ML IV SCH (03:08)
[2024-01-22] MEDS: ACETAMINOPHEN 325 MG TABLET PO PRN (03:56)
[2024-01-22] MEDS ORDERED: VANCOMYCIN INJ 1 GM in SODIUM CHLORIDE 0.9% 250 ML IV SCH (04:00)
[2024-01-22] MEDS: METOPROLOL 5 MG/5 ML VIAL IVP PRN (05:34)
[2024-01-22] MEDS: SODIUM CHLORIDE FLUSH 0.9% 10 ML SYRINGE IVP PRN (05:36)
[2024-01-22] MEDS ORDERED: IPRATROPIUM BROMIDE TOP SCH (06:00)
[2024-01-22 06:12] LABS: B. PARAPERTUSSIS- RESP PCR PAN NOT DETECTED; B. PERTUSSIS- RESP PCR PANEL NOT DETECTED; C. PNEUMONIAE- RESP PCR PANEL NOT DETECTED; CORONAVIRUS 229E-RESP PCR NOT DETECTED; CORONAVIRUS HKU1-RESP PCR NOT DETECTED; CORONAVIRUS NL63-RESP PCR NOT DETECTED; CORONAVIRUS OC43-RESP PCR NOT DETECTED; HUMAN METAPNEUMOVIRUS NOT DETECTED; INFLUENZA A- RESP PCR PANEL NOT DETECTED; INFLUENZA B - RESP PCR PANEL NOT DETECTED; M. PNEUMONIAE- RESP PCR PANEL NOT DETECTED; PARAINFLUENZA VIRUS 1 NOT DETECTED; PARAINFLUENZA VIRUS 2 NOT DETECTED; PARAINFLUENZA VIRUS 3 NOT DETECTED; PARAINFLUENZA VIRUS 4 NOT DETECTED; RHINOVIRUS/ENTEROVIRUS NOT DETECTED; RSV- RESP PCR PANEL NOT DETECTED; SARS-CoV-2 -RESP PCR PANEL NOT DETECTED
[2024-01-22] MEDS: BUDESONIDE 0.5 MG/2 ML NEB INH SCH (07:25)
[2024-01-22 08:50] LABS: TROPONIN I HIGH SENSITIVITY 12.1 ng/L (2.3-19.7)
[2024-01-22] MEDS: SUCRALFATE 1 GM/10 ML UDC PO SCH (08:50)
[2024-01-22] MEDS: INSULIN LISPRO 300 UNIT/3 ML PEN SUBQ SCH (08:50)
[2024-01-22] MEDS: SODIUM CHLORIDE FLUSH 0.9% 10 ML SYRINGE IVP SCH (08:51)
[2024-01-22] MEDS: FLUTICASONE NASAL SPRAY NAS SCH (08:51)
[2024-01-22] MEDS: NYSTATIN 500000 UNITS/5 ML UDC PO SCH (08:52)
[2024-01-22] MEDS: LIDOCAINE PATCH 5% TOP SCH ×2 (08:52→09:30)
[2024-01-22] MEDS: HEPARIN 5,000 UNIT/ML VIAL SUBQ SCH (08:52)
[2024-01-22] MEDS: predniSONE 20 MG TABLET PO SCH (08:53)
[2024-01-22] MEDS: MULTIVITAMIN W/MINERALS TABLET PO SCH (08:53)
[2024-01-22] MEDS: FERROUS SULFATE 325 MG TABLET PO SCH (08:53)
[2024-01-22] MEDS: PANTOPRAZOLE 40 MG TABLET PO SCH (08:53)
[2024-01-22] MEDS: LORATADINE 10 MG TABLET PO SCH (08:53)
[2024-01-22] MEDS: CALCIUM CARBONATE CHEW 500 MG TABLET PO SCH (08:53)
[2024-01-22] MEDS: METOPROLOL TARTRATE 50 MG TABLET PO SCH (08:54)
[2024-01-22] MEDS: METHADONE 5 MG TABLET PO SCH (08:56)
[2024-01-22] MEDS ORDERED: CEFEPIME 2 GM in SODIUM CHLORIDE 0.9% MINIBAG 100 ML IV SCH (09:00)
[2024-01-22] MEDS ORDERED: VANCOMYCIN INJ 0.75 GM in SODIUM CHLORIDE 0.9% 250 ML IV SCH (09:00)
[2024-01-22] MEDS: THEOPHYLLINE ANHYDROUS 300 MG PO SCH (09:10)
[2024-01-22] MEDS: VANCOMYCIN INJ 1 GM in SODIUM CHLORIDE 0.9% 250 ML IV SCH (09:16)
[2024-01-22 10:05] LABS: ESTIMATED AVERAGE GLUCOSE 123 mg/dL (70-100); HEMOGLOBIN A1c% 5.9 % (4.27-6.07)
--- NOTE | 2024-01-22 10:09 | PHARMACY PROGRESS NOTE ---
- Best Possible Medication History Admit Date and Time: 01/22/24 0205 Processed by: Pharmacy Medications reviewed in ED?: No Medication History completed: Yes Patient Interview: Pt unable to participate Secondary Source(s): Physician records, Pharmacy records, Insurance records, Facility MAR as ONLY source As the person ultimately responsible for medication therapy, providers are able to order a medication from an existing home medication list in [facility] via the "Reconcile Routine" prior to Confirmation of that medication by support services tech. Such practice is discouraged except when the physician, in their clinical j udgment, deems that a medical need exists for a medication without regard to previous use.
--- NOTE | 2024-01-22 11:16 | PHARMACY PROGRESS NOTE ---
- Therapy Status Therapy status: Awaiting steady state Basis for treatment: Empirical Treatment indication: OSTEO - FOLLOWED BY [facility] ID Trough goal: 400-600 Concurrent antibiotics: CEFEPIME - POP Risk Risk level for Acute Kidney Injury: High Acute Kidney Injury risk factors: Other nephrotoxic agents, Duration >7 days, Goal trough >15 - Monitoring and Recommendation Clinical response to treatment: Lab Results 01/22/24 00:00 BUN 28 H Creatinine 2.3 H Estimated GFR (MDRD) 29 L Monitoring plan: Daily serum creatinine, Draw trough early Areas for additional monitoring: Acute Kidney Injury Pharmacy recommendation: Decrease dose (1000 MG X1 TODAY. PT PRESENTS W/ POP. DRAW RANDOM VANCO LVL IN THE AM. ASSESS FUTURE DOSES FROM THERE. ABX THERAPY FOR OSTEO TO END 01/30/24 AFTER 6 WEEK TX.)
[2024-01-22] MEDS: guaiFENesin 100 MG/5 ML UDC PO PRN (13:16)
[2024-01-22] MEDS: ONDANSETRON 4 MG/2 ML VIAL IVP PRN (13:16)
[2024-01-22] MEDS: IPRATROPIUM 0.2 MG/ML NEB INH SCH (14:31)
[2024-01-22] MEDS: ZINC SULFATE 220 MG CAPSULE PO SCH (18:02)
[2024-01-22] MEDS: MONTELUKAST 10 MG TABLET PO SCH (20:16)
[2024-01-22] MEDS: MIRTAZAPINE 15 MG TABLET PO SCH (20:16)
[2024-01-23 05:44] LABS: ALBUMIN 2.6 g/dL (3.2-5.5); CALCIUM 8.2 mg/dL (8.5-10.3); CREATININE 2.3 mg/dL (0.6-1.3); PHOSPHORUS 3.4 mg/dL (2.5-5.0); POTASSIUM 3.6 mmol/L (3.5-4.5)
[2024-01-23 05:45] LABS: VANCOMYCIN,RANDOM 33.1 ug/mL
[2024-01-23] MEDS: CEFEPIME 2 GM in SODIUM CHLORIDE 0.9% MINIBAG 100 ML IV SCH (08:18)
[2024-01-23] MEDS: ASCORBIC ACID 500 MG TABLET PO SCH (08:21)
--- NOTE | 2024-01-23 10:15 | PHARMACY PROGRESS NOTE ---
- Therapy Status Therapy status: Trough supratherapeutic Basis for treatment: Empirical Treatment indication: OSTEO Trough goal: 400-600 Concurrent antibiotics: CEFEPIME - POP Risk Risk level for Acute Kidney Injury: High Acute Kidney Injury risk factors: Other nephrotoxic agents, Duration >7 days, Goal trough >15 - Monitoring and Recommendation Clinical response to treatment: Lab Results 01/22/24 00:00 BUN 28 H Creatinine 2.3 H Estimated GFR (MDRD) 29 L Monitoring plan: Daily serum creatinine, Draw trough early Areas for additional monitoring: Acute Kidney Injury Pharmacy recommendation: Hold dose (SUPRATHERAPEUTIC LEVEL THIS AM. HOLDING ALL DOSES FOR NOW. REPEATING LEVEL TOMRROW AM. RENAL PANEL ORDERED.)
--- NOTE | 2024-01-23 12:14 | Ultrasound Report ---
PROCEDURE: Renal (Retroperitoneal) INDICATIONS: ELEVATED CR TECHNIQUE: Real-time scanning was performed of the retroperitoneal organs, with image documentation. COMPARISON: None. FINDINGS: Kidneys: Kidneys are normal in size. Right kidney measures 11.2 cm long; left kidney measures 12.0 cm long. Right renal cortical thickness is 0.93 cm; left renal cortical thickness is 1.26 cm. Nonobs tructive left renal stone measures 1 cm . No hydronephrosis bilaterally. Bladder: Pre-void bladder volume is 155 mL. Post-void residual is 155 mL. Pre-void images demonstr ate no intraluminal masses or stones. On pre-void images, bilateral ureteral jets are noted with col or Doppler interrogation. (Of note, ureteral jets may not be detectable in up to 25% of cases due to insufficient differences in specific gravity between ureteral and bladder urine). Miscellaneous: Prostate measures 4.0 x 2.9 x 3.8 cm and elevates the bladder floor IMPRESSION: 1. Partially distended bladder 155 cc. Enlarged prostate elevates the bladder floor. Patient unable t o void. 2. Nonobstructive left renal calculus Reviewed by: Kevon Celeste MD on 01/23/2024 11:13 AM SANDRINE Approved by: Kevon Celeste MD on 01/23/2024 11:13 AM AKDT Station ID: [id number]
--- NOTE | 2024-01-23 14:47 | CONSULTATION NOTE ---
Palliative Care Follow Up - Referral Referring Provider: Dr. Odom Time of Visit: 14:00-14:45 Referral setting: Hospitalized patient Referral Reason: Goals of Care/Anxiety - Information Sources Records reviewed: RN notes reviewed, Previous records reviewed History/Review of Systems obtained from: Patient Exam limitations: Clinical condition - History of Present Illness Update Brief HPI Update: `This is a 58-year-old gentleman who was admitted on 01/21 for increased shortness of breath, reports he was having symptoms of his asthma, and is quite distressed was not taken seriously regarding meds he needed for relief of symptoms. I had met patient in his last hospitalization, he is much more clear today and able to participate in conversation, is orientated but has very little insight. He is very perseverative on his experience with [facility], and wanting continue to retell his story regarding this. He is most offended by the fact they said he didn't have asthma, and it was anxiety. 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 Patient continues with dysphagia, is able to recall has has multiple swallowing evaluations over the last couple of years, reports spoke with batch maker. He is able to self feed. Patient continues with low back pain but reports tolerable, and anxious to continue with physical therapy. Patient is planning to go to another SNF on discharge. Did come in in with tachycardia and acute renal failure, is improving. Patient does not perceive he is anxious, but does present with rapid speech and scattered thoughts, but no evidence of confusion. Patient still receiving IV antibiotics for his osteomyelitis. Past Medical History: Right foot osteomyelitis, heart failure, CAD, COPD/asthma, EN, hypertension, chronic low back plain, diabetes type 2, multiple episodes of pneumonia, GERD, GI bleed, kidney stones, chronic diabetic foot ulcers, with toe amputations. Social History - Living Situation Living arrangement: At home Living Situation: With family (Lives with son Tad, fdc. Patient recently in [facility] for rehab. Has a daughter, has been multiple times. Patient was 20 years in the [place].) Medications/Allergies - Medications Active Medication List: Active Medications Acetaminophen (Acetaminophen 325 Mg Tablet) 650 mg PO Q4HR PRN PRN Reason: Pain or Fever > 38C (100.4F) Last Admin: 01/23/24 11:29 Dose: 650 mg Albuterol (Albuterol Neb 2.5 Mg/3 Ml) 2.5 mg INH RTQ4H PRN PRN Reason: Shortness of Air/Wheezing Albuterol/Ipratropium (Ipratropium/Albuterol 3 Ml Neb) 3 ml INH Q4H PRN PRN Reason: Asthma Ascorbic Acid (Ascorbic Acid 500 Mg Tablet) 500 mg PO DAILY [facility] Last Admin: 01/23/24 08:21 Dose: 500 mg Benzonatate (Benzonatate 100 Mg Capsule) 100 mg PO TID PRN PRN Reason: Cough Bisacodyl (Bisacodyl 10 Mg Supp) 10 mg MN PRN PRN PRN Reason: Constipation Budesonide (Budesonide 0.5 Mg/2 Ml Neb) 0.5 mg INH RTBID [facility] Last Admin: 01/23/24 07:40 Dose: 0.5 mg Calcium Carbonate/Glycine (Calcium Carbonate Chew 500 Mg Tablet) 500 mg PO BID [facility] Last Admin: 01/23/24 08:21 Dose: 500 mg Ferrous Sulfate (Ferrous Sulfate 325 Mg Tablet) 325 mg PO DAILY [facility] Last Admin: 01/23/24 08:21 Dose: 325 mg Fluticasone Propionate (Fluticasone Nasal [place]) 1 sprays MONICA BID [facility] Last Admin: 01/23/24 09:31 Dose: Not Given Guaifenesin (Guaifenesin 100 Mg/5 Ml Udc) 400 mg PO Q6H PRN PRN Reason: Cough Heparin Sodium (Porcine) (Heparin 5,000 Unit/Ml Vial) 5,000 unit SUBQ BID [facility] Last Admin: 01/23/24 08:38 Dose: Not Given Sodium Chloride (Normal Saline 0.9%) 1,000 mls @ 100 mls/hr IV .Q10H [facility] Last Admin: 01/23/24 13:26 Dose: 100 mls/hr Cefepime HCl 2 gm/ Sodium (Chloride) 100 mls @ 200 mls/hr IV Q24H [facility] Last Infusion: 01/23/24 09:32 Dose: Infused Insulin Human Lispro (Insulin Lispro 300 Unit/3 Ml Pen) 1 - 5 unit SUBQ 0800,1200,1700,2100 [facility]; Protocol Last Admin: 01/23/24 11:30 Dose: Not Given Ipratropium Vian (Ipratropium 0.2 Mg/Ml Neb) 0.5 mg INH RTQ6H [facility] Last Admin: 01/23/24 12:26 Dose: 0.5 mg Lidocaine (Lidocaine Patch 5%) 1 patch TOP DAILY [facility] Last Admin: 01/23/24 09:32 Dose: Not Given Loratadine (Loratadine 10 Mg Tablet) 10 mg PO DAILY [facility] Last Admin: 01/23/24 08:19 Dose: 10 mg Methadone HCl (Methadone 5 Mg Tablet) 2.5 mg PO BID [facility] Last Admin: 01/23/24 08:18 Dose: 2.5 mg Metoprolol Tartrate (Metoprolol Tartrate 50 Mg Tablet) 12.5 mg PO BID [facility] Last Admin: 01/23/24 08:20 Dose: 12.5 mg Metoprolol Tartrate (Metoprolol 5 Mg/5 Ml Vial) 5 mg IVP Q6H PRN PRN Reason: Tachycardia Last Admin: 01/22/24 05:34 Dose: 5 mg Mirtazapine (Mirtazapine 15 Mg Tablet) 15 mg PO QPM [facility] Last Admin: 01/22/24 20:16 Dose: 15 mg Montelukast Sodium (Montelukast 10 Mg Tablet) 10 mg PO QPM [facility] Last Admin: 01/22/24 20:16 Dose: 10 mg Multivitamins/Minerals (Multivitamin W/Minerals Tablet) 1 tab PO DAILY [facility] Last Admin: 01/23/24 08:22 Dose: 1 tab Naloxone HCl (Naloxone Hcl Nasal [place] Kit) 1 kit MONICA DAILY PRN PRN Reason: NEEDED PER PROVIDER ORDERS Nitroglycerin (Nitroglycerin Sl 0.4 Mg Tablet) 0.4 mg SL Q5M PRN PRN Reason: Chest Pain Nystatin (Nystatin 139235 Units/5 Ml Udc) 5 ml PO QID [facility] Last Admin: 01/23/24 13:26 Dose: 5 ml Ondansetron HCl (Ondansetron Odt 4 Mg Tablet) 4 mg TL Q6HR PRN PRN Reason: Nausea / Vomiting Ondansetron HCl (Ondansetron 4 Mg/2 Ml Vial) 4 mg IVP Q6HR PRN PRN Reason: Nausea / Vomiting Last Admin: 01/22/24 13:16 Dose: 4 mg Pantoprazole Sodium (Pantoprazole 40 Mg Tablet) 40 mg PO BID [facility] Last Admin: 01/23/24 08:21 Dose: 40 mg Patient Own Med ( Theophylline Anhydrous [ Theophylline Er] 300 Mg Tab.Er.12h) 1 each PO BID [facility] Last Admin: 01/23/24 08:22 Dose: Not Given Polyethylene Glycol (Polyethylene Glycol 3350 17 Gm Packet) 17 gm PO DAILY PRN PRN Reason: Constipation Prednisone (Prednisone 20 Mg Tablet) 60 mg PO DAILYWM [facility] Stop: 01/25/24 08:01 Last Admin: 01/23/24 08:19 Dose: 60 mg Prednisone (Prednisone 20 Mg Tablet) 40 mg PO DAILYWM [facility] Stop: 01/28/24 08:01 Prednisone (Prednisone 20 Mg Tablet) 20 mg PO DAILYWM [facility] Stop: 01/30/24 08:01 Sodium Chloride (Sodium Chloride Flush 0.9% 10 Ml Syringe) 10 ml IVP PRN PRN PRN Reason: NEEDED PER PROVIDER ORDERS Last Admin: 01/22/24 05:36 Dose: 10 ml Sodium Chloride (Sodium Chloride Flush 0.9% 10 Ml Syringe) 10 ml IVP 0100,0900,1700 [facility] Last Admin: 01/23/24 08:23 Dose: Not Given Sucralfate (Sucralfate 1 Gm/10 Ml Udc) 1 gm PO 0700,1100,1600,2200 [facility] Last Admin: 01/23/24 11:29 Dose: 1 gm Triamcinolone Acetonide (Triamcinolone 0.1% Cream 15 Gm Tube) 1 applic TOP BID PRN PRN Reason: ITCHING Zinc Sulfate (Zinc Sulfate 220 Mg Capsule) 220 mg PO DAILY [facility] Last Admin: 01/23/24 08:21 Dose: 220 mg Albuterol Sulfate [Proair Hfa Inhaler] 2 puffs INH Q4H PRN 03/30/18 Ipratropium/Albuterol [Duoneb] 3 ml PO Q4H PRN 12/20/23 Multivitamin with Minerals [Multivitamins with Minerals] 1 tab PO DAILY 12/20/23 guaiFENesin [Chest Congestion Relief] 400 mg PO Q6H PRN 12/20/23 Bisacodyl Supp [Dulcolax Supp] 1 appful MN PRN PRN 01/13/24 Metoprolol Tartrate [Lopressor] 12.5 mg PO DAILY 01/13/24 Mineral Oil [Mineral Oil Enema] 1 appful MN PRN PRN 01/13/24 polyethylene glycoL 3350 [Miralax] 1 packet PO PRN PRN 01/13/24 Naloxone HCl Nasal [Narcan Nasal] 1 spray IN DAILY PRN 01/15/24 Saccharomyces Boulardii [Resistance Formula Probiotic] 1 cap PO DAILY 01/22/24 Senna [Senokot] 19.2 mg PO DAILY PRN 01/22/24 - Allergies Allergies/Adverse Reactions: Allergies Allergy/AdvReac Type Severity Reaction Status Date / Time aspirin Allergy Unknown Verified 01/22/24 01:33 cyclobenzaprine AdvReac Hallucinati Verified 01/22/24 01:33 [From Flexeril] ons ibuprofen AdvReac Respiratory Verified 01/22/24 01:33 pseudoephedrine AdvReac Unknown Verified 01/22/24 01:33 [From Entex T] Review of Systems - Constitutional Constitutional: reports: Fatigue, Weakness, Poor appetite, Weight loss - Ears, Nose & Throat Ears, Nose & Throat: reports: Dry mouth - Cardiovascular Cardiovascular: reports: Exertional dyspnea, Decr. 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) - Neurological Neurological: reports: General weakness, Numbness, Memory problems (improved since last hospitalization) - Psychiatric Psychiatric: reports: Depression, Anxiety, Aggitation (perseverating about [place]; but cooperative in care) - Endocrine Endocrine: reports: Diabetes type 2, Intolerance to cold - Hematologic/Lymphatic Hematologic/Lymph: reports: Anemia (has been receiving blood transfusions for GI bleeding), Recurrent infections (hx of multiple hospitalizations for pneumonia) Physical Exam - Vital Signs Vital Signs: Vital Signs x48h Temp Pulse Pulse Resp BP BP Pulse Ox 01/23/24 12:27 99 20 01/23/24 08:37 95 01/23/24 08:20 136/83 H 01/23/24 08:00 36.9 C 86 20 136/83 H 95 01/23/24 07:41 100 18 O2 Flow Rate 01/23/24 12:27 01/23/24 08:37 01/23/24 08:20 01/23/24 08:00 2 01/23/24 07:41 - Physical Exam General Appearance: positive: No acute distress ENT: positive: Dry mucous membranes Neck: positive: Trachea midline Cardiovascular: positive: Regular rate & rhythm Respiratory: positive: No respiratory distress, Other (oxygen on) Abdomen: positive: Other (flat) Skin: positive: Dryness, Bruising, Other (drsg intact) Neurologic/Psychiatric: positive: Mood/affect nml, Weakness Palliative Care - POLST Patient has POLST: Yes POLST Status: Full Code Pain: Pain unchanged, Location (low back pain) Performance Status: Patient is much more alert and participatory than last hospitalization. Has been receiving therapy at [facility], has worked with therapy here at hospital. Patient's goal is to return to walking and self-care, does not perceive son is a caregiver that can be helpful at home. - Palliative Care Discussion: Patient continues with very poor insight into his current situation, is quite convinced he is not returning to [facility]. My understanding most likely is, but just softened with there is not a whole lot openings right now in SNF's, and given patient needs increased care, may need to be less strident about this. Patient's perception is he has been ill, does not have much choice other than to get "better", plans to continue to live. Has very little insight into his increasing care needs and how most likely will continue to struggle with his ongoing acute and chronic health problems. We did discuss as of last time, he had not done his DPOA, still identifies his son Tad, we discussed this would be important to have done, if social insurance administrator with notary available tomorrow would recommend follow through on this form. Patient does not perceive himself as anxious, he reminded him of our conversation last time about his goals, that we had talked about his father had ALS, and dying at home. That still his ultimate goal, though is unable to see himself currently and his decline. Patient's goals are to continue to "get better", get stronger and return home, does not see himself in an alternative living situation, though is unable to identify who is going to help him. Does not perceive his son's caregiver, does talk about his "ex-" the mother of his children, and "checking on him a couple times a week". We discussed this would not be enough at this point with his care needs, he does understand this per his verbalization. Results - Lab Results Lab results reviewed: Yes Fish Bones: 01/22/24 00:00 01/23/24 05:10 Lab and Imaging Results: Lab Results x24hrs 01/23/24 01/23/24 01/23/24 Range/Units 11:17 07:46 05:10 Sodium 139 (135-145) mmol/L Potassium 3.6 (3.5-4.5) mmol/L Chloride 110 (101-111) mmol/L Carbon Dioxide 21 (21-32) mmol/L Anion Gap 8.0 (6-13) BUN 32 H (6-20) mg/dL Creatinine 2.3 H (0.6-1.3) mg/dL Estimated GFR (MDRD) 29 L (>89) Glucose 127 H (74-104) mg/dL POC Whole Bld Glucose 116 H 99 (70 - 100) mg/dL Calcium 8.2 L (8.5-10.3) mg/dL Phosphorus 3.4 (2.5-5.0) mg/dL Magnesium (1.7-2.3) mg/dL Troponin I High Sens (2.3-19.7) ng/L Albumin 2.6 L (3.2-5.5) g/dL Last Dose Date Last Dose Time Random Vancomycin ug/mL 01/23/24 01/22/24 01/22/24 Range/Units 05:10 14:25 14:25 Sodium (135-145) mmol/L Potassium (3.5-4.5) mmol/L Chloride (101-111) mmol/L Carbon Dioxide (21-32) mmol/L Anion Gap (6-13) BUN (6-20) mg/dL Creatinine (0.6-1.3) mg/dL Estimated GFR (MDRD) (>89) Glucose (74-104) mg/dL POC Whole Bld Glucose (70 - 100) mg/dL Calcium (8.5-10.3) mg/dL Phosphorus (2.5-5.0) mg/dL Magnesium 1.7 (1.7-2.3) mg/dL Troponin I High Sens 11.4 (2.3-19.7) ng/L Albumin (3.2-5.5) g/dL Last Dose Date 01-22-24 Last Dose Time 0900 Random Vancomycin 33.1 ug/mL Impression and Recommendations - Palliative Care Impression: This is a 58-year-old gentleman who has had multiple hospitalizations related to acute and chronic issues. Patient is back with a exacerbation of his shortness of breath, still being treated for osteomyelitis, continues with poor insight into his current condition, but ultimate goal is to return home and be independent. Palliative care is meeting with patient to further explore goals of care, patient remains fairly adamant in the context of ongoing care and support, with rehab goals in mind. Recommendations/Counseling Done: 1. Goals of care. I would still pursue trying to get DPOA, does identify son Tad Martínez [phone] as primary decision maker if needed, does have 2 children, and is worried about their not being in agreement if decisions or EOL support needed. Patient fairly adamant wants to continue with full code. Patient would benefit from outpatient palliative care on discharge. Patient remains at high risk for rehospitalization, continues with poor prognostic variables, will continue on outpatient basis to build rapport and engage family. 2. Anxiety. Patient with fluctuating anxiety. Patient currently on therapeutic dose of mirtazapine, most likely should not titrate up secondary to kidney status. Patient may benefit though from addition of Buspirone a nonbenzodiazepine for anxiety, starting at 7.5 mg twice a day. 45 minutes with evaluation, regarding reapproach regarding goals of care, patient remains quite frail, poor insight, not interested in further exploration, given high risk for rehospitalization, and continued further decline, would recommend on discharge from SNF palliative care consult.
--- NOTE | 2024-01-23 21:09 | PROVIDER PROGRESS NOTE ---
Assessment/Plan - Problem List (1) Acute renal failure Assessment/Plan: Creatinine remains at 2.3. Creatinine at baseline is normal. Continue normal saline at 100 mL/hour. Diuretics have been withheld. Avoid nephrotoxins. Renal ultrasound performed today revealed a partially distended bladder with a volume of 155 mL, and a large prostate that elevates the bladder floor. Study revealed a nonobstructive left renal calculus Sinus Tachycardia Transthoracic echo performed in demonstrated a left ventricular ejection fraction of 35-40% this study was performed in November. Echocardiogram performed on January 22, 2024 revealed an ejection fraction of 50- 55% with normal right ventricular size and function. Transthoracic echo performed in demonstrated a left ventricular ejection fraction of 35-40% this study was performed in November. Echocardiogram performed on January 22, 2024 revealed an ejection fraction of 50- 55% with normal right ventricular size and function. Continue metoprolol for heart rate and blood pressure control. COPD Exacerbation Continue ipratropium/albuterol nebulizer treatments. Continue prednisone. Continue Pulmicort GERD Continue Pantoprazole and sucralfate. Speech therapy consult has been ordered for dysphagia. Hyperglycemia Continue sliding scale insulin. Right Foot Osteomyelitis Continue vancomycin and cefepime. Chronic Lower Back Pain Continue outpatient dose of methadone - Current Meds Current Meds: Current Medications Generic Name Dose Route Start Last Admin Trade Name Freq PRN Reason Stop Dose Admin Acetaminophen 650 mg 01/22/24 01:57 01/23/24 19:32 Acetaminophen 325 Mg Tablet PO 650 mg Q4HR PRN Administration Pain or Fever > 38C (100.4F) Ascorbic Acid 500 mg 01/23/24 09:00 01/23/24 08:21 Ascorbic Acid 500 Mg Tablet PO 500 mg DAILY DARCIE Administration Budesonide 0.5 mg 01/22/24 07:00 01/23/24 18:17 Budesonide 0.5 Mg/2 Ml Neb INH 0.5 mg RTBID DARCIE Administration Calcium Carbonate/Glycine 500 mg 01/22/24 09:00 01/23/24 08:21 Calcium Carbonate Chew 500 Mg Tablet PO 500 mg BID DARCIE Administration Ferrous Sulfate 325 mg 01/22/24 09:00 01/23/24 08:21 Ferrous Sulfate 325 Mg Tablet PO 325 mg DAILY DARCIE Administration Fluticasone Propionate 1 sprays 01/22/24 09:00 01/23/24 09:31 Fluticasone Nasal [place] MONICA Not Given BID [facility] Heparin Sodium (Porcine) 5,000 unit 01/22/24 09:00 01/23/24 08:38 Heparin 5,000 Unit/Ml Vial SUBQ Not Given BID [facility] Sodium Chloride 1,000 mls @ 100 mls/hr 01/22/24 03:00 01/23/24 13:26 Normal Saline 0.9% IV 100 mls/hr .Q10H DARCIE Administration Cefepime HCl 2 gm/ Sodium 100 mls @ 200 mls/hr 01/23/24 09:00 01/23/24 09:32 Chloride IV Infused Q24H [facility] Infusion Insulin Human Lispro 1 - 5 unit 01/22/24 08:00 01/23/24 17:30 Insulin Lispro 300 Unit/3 Ml Pen SUBQ Not Given 0800,1200,1700,2100 [facility] Protocol Ipratropium [place] 0.5 mg 01/22/24 13:00 01/23/24 18:18 Ipratropium 0.2 Mg/Ml Neb INH 0.5 mg RTQ6H DARCIE Administration Lidocaine 1 patch 01/22/24 09:30 01/23/24 09:32 Lidocaine Patch 5% TOP Not Given DAILY [facility] Loratadine 10 mg 01/22/24 09:00 01/23/24 08:19 Loratadine 10 Mg Tablet PO 10 mg DAILY DARCIE Administration Methadone HCl 2.5 mg 01/22/24 09:00 01/23/24 08:18 Methadone 5 Mg Tablet PO 2.5 mg BID DARCIE Administration Metoprolol Tartrate 12.5 mg 01/22/24 09:00 01/23/24 08:20 Metoprolol Tartrate 50 Mg Tablet PO 12.5 mg BID DARCIE Administration Metoprolol Tartrate 5 mg 01/22/24 02:04 01/22/24 05:34 Metoprolol 5 Mg/5 Ml Vial IVP 5 mg Q6H PRN Administration Tachycardia Mirtazapine 15 mg 01/22/24 21:00 01/22/24 20:16 Mirtazapine 15 Mg Tablet PO 15 mg QPM DARCIE Administration Montelukast Sodium 10 mg 01/22/24 21:00 01/22/24 20:16 Montelukast 10 Mg Tablet PO 10 mg QPM DARCIE Administration Multivitamins/Minerals 1 tab 01/22/24 09:00 01/23/24 08:22 Multivitamin W/Minerals Tablet PO 1 tab DAILY DARCIE Administration Nystatin 5 ml 01/22/24 09:00 01/23/24 18:09 Nystatin 829381 Units/5 Ml Udc PO 5 ml QID DARCIE Administration Ondansetron HCl 4 mg 01/22/24 02:05 01/22/24 13:16 Ondansetron 4 Mg/2 Ml Vial IVP 4 mg Q6HR PRN Administration Nausea / Vomiting Pantoprazole Sodium 40 mg 01/22/24 09:00 01/23/24 08:21 Pantoprazole 40 Mg Tablet PO 40 mg BID DARCIE Administration Patient Own Med ( 1 each 01/22/24 09:00 01/23/24 08:22 Theophylline PO Not Given Anhydrous [ BID [facility] Theophylline Er] 300 Mg Tab.Er.12h) Prednisone 60 mg 01/22/24 08:00 01/23/24 08:19 Prednisone 20 Mg Tablet PO 01/25/24 08:01 60 mg DAILYWM DARCIE Administration Sodium Chloride 10 ml 01/22/24 02:05 01/22/24 05:36 Sodium Chloride Flush 0.9% 10 Ml Syringe IVP 10 ml PRN PRN Administration NEEDED PER PROVIDER ORDERS Sodium Chloride 10 ml 01/22/24 09:00 01/23/24 18:10 Sodium Chloride Flush 0.9% 10 Ml Syringe IVP Not Given 0100,0900,1700 DARCIE Sucralfate 1 gm 01/22/24 07:00 01/23/24 16:56 Sucralfate 1 Gm/10 Ml Udc PO 1 gm 0700,1100,1600,2200 DARCIE Administration Zinc Sulfate 220 mg 01/22/24 17:00 01/23/24 08:21 Zinc Sulfate 220 Mg Capsule PO 220 mg DAILY DARCIE Administration - Lab Result Fish Bone Diagrams: 01/22/24 00:00 01/23/24 05:10 - Additional Planning My Orders: My Active Orders 01/23/24 Hospice Physician Consult [CONS] Routine 01/23/24 09:00 Ascorbic Acid [Vitamin C] 500 mg PO DAILY Cefepime 2 gm Sodium Chloride 0.9% Minibag [Normal Saline 0.9% Minibag] 100 ml IV Q24H Subjective - Subjective Patient Reports: Other (Alert. No other complaints at this time. Currently denies chest pain. Complains of intermittent shortness of breath. Denies abdominal pain.) Objective Vital Signs: Vital Signs - 24 hr 01/22/24 01/23/24 01/23/24 23:32 01:08 07:41 Temperature 36.8 C Heart Rate 79 100 Heart Rate [ 95 Brachial] Respiratory 20 16 18 Rate Blood Pressure Blood Pressure 131/84 H [right arm] O2 Saturation 99 If not protocol 2 : Oxygen Flow, liters/minute 01/23/24 01/23/24 01/23/24 08:00 08:20 08:37 Temperature 36.9 C Heart Rate Heart Rate [ 86 Brachial] Respiratory 20 Rate Blood Pressure 136/83 H Blood Pressure 136/83 H [right arm] O2 Saturation 95 95 If not protocol 2 : Oxygen Flow, liters/minute 01/23/24 01/23/24 01/23/24 12:27 14:00 15:51 Temperature 37.0 C 36.8 C Heart Rate 99 Heart Rate [ 97 105 H Brachial] Respiratory 20 20 24 Rate Blood Pressure Blood Pressure 136/78 H 152/103 H [right arm] O2 Saturation 94 95 If not protocol : Oxygen Flow, liters/minute 01/23/24 18:21 Temperature Heart Rate 115 H Heart Rate [ Brachial] Respiratory 18 Rate Blood Pressure Blood Pressure [right arm] O2 Saturation If not protocol : Oxygen Flow, liters/minute Oxygen O2 Source [With Activity] Nasal cannula O2 Source [Without Activity] Nasal cannula O2 Source Room air Oxygen Flow Rate 2 I&O (Last 24 Hrs): Intake and Output Totals x24h 01/21/24 01/22/24 01/23/24 23:59 23:59 23:59 Intake Total 2946.667 2720.333 Output Total 995 550 Balance 6765.962 1014.333 General: Alert, Oriented x3, No acute distress HEENT: Atraumatic Neck: Supple, No JVD Neuro: Alert Cardiovascular: Other (Positive S1-S2 no extra heart sounds) Respiratory: Other (Fair air exchange in all lung carney. Coarse breath sounds positive expiratory wheezing.) Abdomen: Normal bowel sounds, No tenderness Extremities: No cyanosis, No edema Skin: No rashes - Results Results: Laboratory Results WBC 7.8 x10^3/uL (4.8-10.8) 01/22/24 00:00 RBC 3.44 10^6/uL (4.70-6.10) L 01/22/24 00:00 Hgb 9.1 g/dL (14.0-18.0) L 01/22/24 00:00 Hct 30.4 % (42.0-52.0) L 01/22/24 00:00 MCV 88.4 fL (80.0-94.0) 01/22/24 00:00 MCH 26.5 pg (27.0-31.0) L 01/22/24 00:00 MCHC 29.9 g/dL (32.0-36.0) L 01/22/24 00:00 RDW 15.4 % (12.0-15.0) H 01/22/24 00:00 Plt Count 590 10^3/uL (130-450) H 01/22/24 00:00 MPV 9.2 fL (7.4-11.4) 01/22/24 00:00 Neut # (Auto) 7.1 10^3/uL (1.5-6.6) H 01/22/24 00:00 Lymph # (Auto) 0.4 10^3/uL (1.5-3.5) L 01/22/24 00:00 [place] # (Auto) 0.2 10^3/uL (0.0-1.0) 01/22/24 00:00 Eos # (Auto) 0.0 10^3/uL (0.0-0.7) 01/22/24 00:00 Baso # (Auto) 0.0 10^3/uL (0.0-0.1) 01/22/24 00:00 Absolute Nucleated RBC 0.00 x10^3/uL 01/22/24 00:00 Nucleated RBC % 0.0 /100WBC 01/22/24 00:00 Bld Gas Analysis Time 0246 01/22/24 02:30 Sample Site RIGHT RADIAL 01/22/24 02:30 ABG pH 7.49 (7.35-7.45) H 01/22/24 02:30 ABG pCO2 26 mmHg (34-45) L 01/22/24 02:30 ABG pO2 89 mmHg (80-100) 01/22/24 02:30 ABG HCO3 19.1 mmol/L (22.0-26.0) L 01/22/24 02:30 ABG Total CO2 19.9 MMOL/L (21.0-29.0) L 01/22/24 02:30 ABG O2 Saturation 97 % (94-98) 01/22/24 02:30 ABG Base Excess -3.6 mmol/L (-2.0-3.0) L 01/22/24 02:30 Moi Test POSITIVE 01/22/24 02:30 O2 Delivery Device NASAL CANNULA 01/22/24 02:30 O2 Liters/Min 4.00 LPM 01/22/24 02:30 Sodium 139 mmol/L (135-145) 01/23/24 05:10 Potassium 3.6 mmol/L (3.5-4.5) 01/23/24 05:10 Chloride 110 mmol/L (101-111) 01/23/24 05:10 Carbon Dioxide 21 mmol/L (21-32) 01/23/24 05:10 Anion Gap 8.0 (6-13) 01/23/24 05:10 BUN 32 mg/dL (6-20) H 01/23/24 05:10 Creatinine 2.3 mg/dL (0.6-1.3) H 01/23/24 05:10 Estimated GFR (MDRD) 29 (>89) L 01/23/24 05:10 Glucose 127 mg/dL (74-104) H 01/23/24 05:10 POC Whole Bld Glucose 139 mg/dL (70 - 100) H 01/23/24 16:41 Estimat Average Glucose 123 mg/dL (70-100) H 01/22/24 08:23 Hemoglobin A1c % 5.9 % (4.27-6.07) 01/22/24 08:23 Calcium 8.2 mg/dL (8.5-10.3) L 01/23/24 05:10 Phosphorus 3.4 mg/dL (2.5-5.0) 01/23/24 05:10 Magnesium 1.7 mg/dL (1.7-2.3) 01/22/24 14:25 Iron 11 ug/dL (50-212) L 01/22/24 08:23 TIBC 165 ug/dL (250-450) L 01/22/24 08:23 % Saturation 7 % (20-50) L 01/22/24 08:23 Transferrin 118 mg/dL (203-362) L 01/22/24 08:23 Total Bilirubin 0.3 mg/dL (0.2-1.0) 01/22/24 00:00 AST 8 IU/L (10-42) L 01/22/24 00:00 ALT 6 IU/L (10-60) L 01/22/24 00:00 Alkaline Phosphatase 69 IU/L (42-121) 01/22/24 00:00 Troponin I High Sens 11.4 ng/L (2.3-19.7) 01/22/24 14:25 B-Natriuretic Peptide 81 pg/mL (5-100) 01/22/24 00:00 Total Protein 6.3 g/dL (6.4-8.9) L 01/22/24 00:00 Albumin 2.6 g/dL (3.2-5.5) L 01/23/24 05:10 Globulin 3.2 g/dL (2.1-4.2) 01/22/24 00:00 Albumin/Globulin Ratio 1.0 (1.0-2.2) 01/22/24 00:00 Lipase 22 U/L (11-82) 01/22/24 00:00 Nasal Adenovirus (PCR) NOT DETECTED 01/22/24 04:00 Nasal B. parapertussis DNA (PCR) NOT DETECTED 01/22/24 04:00 Nasal Coronavir 229E PCR NOT DETECTED 01/22/24 04:00 Nasal Coronavir HKU1 PCR NOT DETECTED 01/22/24 04:00 Nasal Coronavir NL63 PCR NOT DETECTED 01/22/24 04:00 Nasal Coronavir OC43 PCR NOT DETECTED 01/22/24 04:00 Nasal Enterovir/Rhinovir PCR NOT DETECTED 01/22/24 04:00 Nasal Influenza B PCR NOT DETECTED 01/22/24 04:00 Nasal Influenza A PCR NOT DETECTED 01/22/24 04:00 Nasal Parainfluen 1 PCR NOT DETECTED 01/22/24 04:00 Nasal Parainfluen 2 PCR NOT DETECTED 01/22/24 04:00 Nasal Parainfluen 3 PCR NOT DETECTED 01/22/24 04:00 Nasal Parainfluen 4 PCR NOT DETECTED 01/22/24 04:00 Nasal RSV (PCR) NOT DETECTED 01/22/24 04:00 Nasal B.pertussis DNA PCR NOT DETECTED 01/22/24 04:00 Nasal C.pneumoniae (PCR) NOT DETECTED 01/22/24 04:00 Monica Human Metapneumo PCR NOT DETECTED 01/22/24 04:00 Nasal M.pneumoniae (PCR) NOT DETECTED 01/22/24 04:00 Nasal SARS-CoV-2 (PCR) NOT DETECTED 01/22/24 04:00 Last Dose Date 01-22-24 01/23/24 05:10 Last Dose Time 0901/23/24 05:10 Random Vancomycin 33.1 ug/mL 01/23/24 05:10 - Procedures Procedures: Procedures ASSISTANCE WITH RESPIRATORY VENTILATION, <24 HRS, CPAP (12/19/23) INSERTION OF ENDOTRACHEAL AIRWAY INTO TRACHEA, VIA OPENING (12/19/23) INSERTION OF FEEDING DEVICE INTO STOMACH, VIA OPENING (12/19/23) INSERTION OF INFUSION DEV INTO SUP VENA CAVA, PERC APPROACH (12/19/23) INTRODUCTION OF NUTRITIONAL INTO UP GI, VIA OPENING (12/19/23) RESPIRATORY VENTILATION, GREATER THAN 96 CONSECUTIVE HOURS (12/19/23) TRANSFUSE NONAUT RED BLOOD CELLS IN PERIPH VEIN, PERC (12/19/23)
[2024-01-24] MEDS: traZODone 50 MG TABLET PO STA (04:40)
[2024-01-24] MEDS: METOPROLOL 5 MG/5 ML VIAL IVP STA (04:41)
[2024-01-24 05:40] LABS: ALBUMIN 2.7 g/dL (3.2-5.5); BUN - BLOOD UREA NITROGEN 42 mg/dL (6-20); CALCIUM 8.4 mg/dL (8.5-10.3); CARBON DIOXIDE - CO2 20 mmol/L (21-32); CHLORIDE 111 mmol/L (101-111); CREATININE 2.3 mg/dL (0.6-1.3); GFR - MDRD 29 (>89); GLUCOSE 110 mg/dL (74-104); PHOSPHORUS 2.9 mg/dL (2.5-5.0); POTASSIUM 3.4 mmol/L (3.5-4.5); SODIUM 138 mmol/L (135-145); VANCOMYCIN,RANDOM 25.5 ug/mL
[2024-01-24] MEDS: IPRATROPIUM/ALBUTEROL 3 ML NEB INH PRN (06:15)
--- NOTE | 2024-01-24 07:32 | PHARMACY PROGRESS NOTE ---
- Therapy Status Therapy status: Trough supratherapeutic Basis for treatment: Empirical Treatment indication: OSTEO - FOLLOWED BY ID. THERAPY TO END ON 01/30/24 AFTER 6 WEEKS OF ABX Trough goal: 400-600 Concurrent antibiotics: CEFEPIME - POP Risk Risk level for Acute Kidney Injury: High Acute Kidney Injury risk factors: Other nephrotoxic agents, Duration >7 days, Goal trough >15 - Monitoring and Recommendation Clinical response to treatment: Lab Results 01/22/24 00:00 BUN 28 H Creatinine 2.3 H Estimated GFR (MDRD) 29 L Monitoring plan: Daily serum creatinine, Draw trough early Areas for additional monitoring: Acute Kidney Injury Pharmacy recommendation: Hold dose (REPEAT LEVEL SUPRA-THERAPEUTIC BUT TRENDING DOWN. CONTINUE TO HOLD VANCOMYCIN DOSES. REPEAT LEVEL TOMORROW AM. SCR REMAINS STABLE AT 2.3. PT REMAINS AFEBRILE. WBC WNL. I/O, VITALS REV'D.)
[2024-01-24] MEDS: ONDANSETRON ODT 4 MG TABLET TL PRN (08:56)
[2024-01-24] MEDS: POTASSIUM CHLORIDE 20 MEQ/15 ML UDC PO ONE (11:33)
[2024-01-24] MEDS: SODIUM CHLORIDE 0.9% 500 ML IV ONE (12:40)
[2024-01-24] MEDS: METOPROLOL TARTRATE 25 MG TABLET PO SCH (21:07)
--- NOTE | 2024-01-24 22:19 | PROVIDER PROGRESS NOTE ---
Assessment/Plan - Problem List (1) Acute renal failure Assessment/Plan: Creatinine remains at 2.3. Creatinine at baseline is normal.Renal failure may be related to high vancomycin levels. Vancomycin has not been initiated since patient was admitted. Continue normal saline at 100 mL/hour. Diuretics have been withheld. Avoid nephrotoxins. Renal ultrasound performed today revealed a partially distended bladder with a volume of 155 mL, and a large prostate that elevates the bladder floor. Study revealed a nonobstructive left renal calculus Sinus Tachycardia Transthoracic echo performed in demonstrated a left ventricular ejection fraction of 35-40% this study was performed in November. Echocardiogram performed on January 22, 2024 revealed an ejection fraction of 50- 55% with normal right ventricular size and function. Continue metoprolol for heart rate and blood pressure control. COPD Exacerbation Continue ipratropium/albuterol nebulizer treatments. Continue prednisone. Continue Pulmicort GERD Continue Pantoprazole and sucralfate. Speech therapy consult has been ordered for dysphagia. Hyperglycemia Continue sliding scale insulin. Right Foot Osteomyelitis Vancomycin was never initiated during this hospitalization. Cefepime has also been discontinued. Chronic Lower Back Pain Continue outpatient dose of methadone Anxiety Initiated treatment with venlafaxine. - Current Meds Current Meds: Current Medications Generic Name Dose Route Start Last Admin Trade Name Freq PRN Reason Stop Dose Admin Acetaminophen 650 mg 01/22/24 01:57 01/24/24 08:42 Acetaminophen 325 Mg Tablet PO 650 mg Q4HR PRN Administration Pain or Fever > 38C (100.4F) Albuterol/Ipratropium 3 ml 01/22/24 01:57 01/24/24 18:19 Ipratropium/Albuterol 3 Ml Neb INH 3 ml Q4H PRN Administration Asthma Budesonide 0.5 mg 01/22/24 07:00 01/24/24 18:19 Budesonide 0.5 Mg/2 Ml Neb INH 0.5 mg RTBID DARCIE Administration Calcium Carbonate/Glycine 500 mg 01/22/24 09:00 01/24/24 21:07 Calcium Carbonate Chew 500 Mg Tablet PO 500 mg BID DARCIE Administration Ferrous Sulfate 325 mg 01/22/24 09:00 01/24/24 08:43 Ferrous Sulfate 325 Mg Tablet PO 325 mg DAILY DARCIE Administration Fluticasone Propionate 1 sprays 01/22/24 09:00 01/24/24 21:06 Fluticasone Nasal [place] 1 spray BID DARCIE Administration Guaifenesin 400 mg 01/22/24 02:31 01/24/24 06:22 Guaifenesin 100 Mg/5 Ml Udc PO 400 mg Q6H PRN Administration Cough Heparin Sodium (Porcine) 5,000 unit 01/22/24 09:00 01/24/24 21:05 Heparin 5,000 Unit/Ml Vial SUBQ Not Given BID DARCIE Sodium Chloride 1,000 mls @ 100 mls/hr 01/22/24 03:00 01/24/24 13:53 Normal Saline 0.9% IV 100 mls/hr .Q10H DARCIE Infusion Cefepime HCl 2 gm/ Sodium 100 mls @ 200 mls/hr 01/23/24 09:00 01/24/24 09:15 Chloride IV Infused Q24H DARCIE Infusion Insulin Human Lispro 1 - 5 unit 01/22/24 08:00 01/24/24 21:11 Insulin Lispro 300 Unit/3 Ml Pen SUBQ 3 unit 0800,1200,1700,2100 DARCIE Administration Protocol Ipratropium [place] 0.5 mg 01/22/24 13:00 01/24/24 18:19 Ipratropium 0.2 Mg/Ml Neb INH Not Given RTQ6H DARCIE Lidocaine 1 patch 01/22/24 09:30 01/24/24 08:44 Lidocaine Patch 5% TOP 1 patch DAILY DARCIE Administration Loratadine 10 mg 01/22/24 09:00 01/24/24 08:44 Loratadine 10 Mg Tablet PO 10 mg DAILY DARCIE Administration Methadone HCl 2.5 mg 01/22/24 09:00 01/24/24 21:06 Methadone 5 Mg Tablet PO 2.5 mg BID DARCIE Administration Metoprolol Tartrate 5 mg 01/22/24 02:04 01/24/24 19:21 Metoprolol 5 Mg/5 Ml Vial IVP 5 mg Q6H PRN Administration Tachycardia Metoprolol Tartrate 12.5 mg 01/24/24 21:00 01/24/24 21:07 Metoprolol Tartrate 25 Mg Tablet PO 12.5 mg BID DARCIE Administration Mirtazapine 15 mg 01/22/24 21:00 01/24/24 21:07 Mirtazapine 15 Mg Tablet PO 15 mg QPM DARCIE Administration Montelukast Sodium 10 mg 01/22/24 21:00 01/24/24 21:07 Montelukast 10 Mg Tablet PO 10 mg QPM DARCIE Administration Multivitamins/Minerals 1 tab 01/22/24 09:00 01/24/24 08:43 Multivitamin W/Minerals Tablet PO 1 tab DAILY DARCIE Administration Nystatin 5 ml 01/22/24 09:00 01/24/24 21:07 Nystatin 904605 Units/5 Ml Udc PO 5 ml QID DARCIE Administration Ondansetron HCl 4 mg 01/22/24 02:05 01/24/24 08:56 Ondansetron Odt 4 Mg Tablet TL 4 mg Q6HR PRN Administration Nausea / Vomiting Ondansetron HCl 4 mg 01/22/24 02:05 01/24/24 00:37 Ondansetron 4 Mg/2 Ml Vial IVP 4 mg Q6HR PRN Administration Nausea / Vomiting Pantoprazole Sodium 40 mg 01/22/24 09:00 01/24/24 21:07 Pantoprazole 40 Mg Tablet PO 40 mg BID DARCIE Administration Patient Own Med ( 1 each 01/22/24 09:00 01/24/24 21:11 Theophylline PO Not Given Anhydrous [ BID DARCIE Theophylline Er] 300 Mg Tab.Er.12h) Prednisone 60 mg 01/22/24 08:00 01/24/24 08:41 Prednisone 20 Mg Tablet PO 01/25/24 08:01 60 mg DAILYWM DARCIE Administration Sodium Chloride 10 ml 01/22/24 02:05 01/22/24 05:36 Sodium Chloride Flush 0.9% 10 Ml Syringe IVP 10 ml PRN PRN Administration NEEDED PER PROVIDER ORDERS Sodium Chloride 10 ml 01/22/24 09:00 01/24/24 17:55 Sodium Chloride Flush 0.9% 10 Ml Syringe IVP 10 ml 0100,0900,1700 DARCIE Administration Sucralfate 1 gm 01/22/24 07:00 01/24/24 21:17 Sucralfate 1 Gm/10 Ml Udc PO 1 gm 0700,1100,1600,2200 DARCIE Administration Zinc Sulfate 220 mg 01/22/24 17:00 01/24/24 08:45 Zinc Sulfate 220 Mg Capsule PO 220 mg DAILY DARCIE Administration - Lab Result Fish Bone Diagrams: 01/22/24 00:00 01/24/24 05:14 - Additional Planning My Orders: My Active Orders 01/25/24 05:00 BMP - BASIC METABOLIC PANEL [CHEM] Routine MAGNESIUM [CHEM] Routine PHOSPHORUS [CHEM] Routine Subjective - Subjective Patient Reports: Other (Alert. Denies chest pain, change in shortness of breath and abdominal pain.) Objective Vital Signs: Vital Signs - 24 hr 01/23/24 01/24/24 01/24/24 23:58 00:48 01:29 Temperature 36.6 C Heart Rate Heart Rate [ 106 H 106 H 102 H Brachial] Respiratory 24 Rate Blood Pressure Blood Pressure 179/114 H 173/112 H 149/96 H [Right Brachial artery] O2 Saturation 96 01/24/24 01/24/24 01/24/24 04:41 06:10 08:32 Temperature 36.7 C Heart Rate 97 Heart Rate [ 103 H Brachial] Respiratory 22 20 Rate Blood Pressure 149/96 H Blood Pressure 149/107 H [Right Brachial artery] O2 Saturation 95 01/24/24 01/24/24 01/24/24 08:50 12:49 15:41 Temperature 36.7 C Heart Rate 109 H Heart Rate [ 115 H Brachial] Respiratory 18 24 Rate Blood Pressure 149/101 H Blood Pressure 146/97 H [Right Brachial artery] O2 Saturation 97 01/24/24 01/24/24 01/24/24 18:20 19:21 19:26 Temperature Heart Rate 121 H Heart Rate [ 113 H Brachial] Respiratory 18 Rate Blood Pressure 122/87 H Blood Pressure 110/82 H [Right Brachial artery] O2 Saturation 01/24/24 01/24/24 01/24/24 19:31 19:36 19:51 Temperature Heart Rate Heart Rate [ 112 H 111 H Brachial] Respiratory Rate Blood Pressure 125/90 H Blood Pressure 118/86 H 132/84 H [Right Brachial artery] O2 Saturation 01/24/24 21:07 Temperature Heart Rate Heart Rate [ Brachial] Respiratory Rate Blood Pressure 138/87 H Blood Pressure [Right Brachial artery] O2 Saturation Oxygen O2 Source [With Activity] Nasal cannula O2 Source [Without Activity] Nasal cannula O2 Source Room air Oxygen Flow Rate 2 I&O (Last 24 Hrs): Intake and Output Totals x24h 01/22/24 01/23/24 01/24/24 23:59 23:59 23:59 Intake Total 2946.667 4057.333 2714.333 Output Total 995 550 900 Balance 8815.330 4422.333 8444.333 General: Alert, No acute distress HEENT: Atraumatic Neck: No JVD Neuro: Alert, Non Focal Cardiovascular: Other (Positive S1-S2 no extra heart sounds.) Respiratory: Other (Fair air exchange in all lung carney. No wheezing no crackles.) Abdomen: Other (Soft nontender nondistended positive bowel sounds) Extremities: No edema Skin: No rashes - Results Results: Laboratory Results WBC 7.8 x10^3/uL (4.8-10.8) 01/22/24 00:00 RBC 3.44 10^6/uL (4.70-6.10) L 01/22/24 00:00 Hgb 9.1 g/dL (14.0-18.0) L 01/22/24 00:00 Hct 30.4 % (42.0-52.0) L 01/22/24 00:00 MCV 88.4 fL (80.0-94.0) 01/22/24 00:00 MCH 26.5 pg (27.0-31.0) L 01/22/24 00:00 MCHC 29.9 g/dL (32.0-36.0) L 01/22/24 00:00 RDW 15.4 % (12.0-15.0) H 01/22/24 00:00 Plt Count 590 10^3/uL (130-450) H 01/22/24 00:00 MPV 9.2 fL (7.4-11.4) 01/22/24 00:00 Neut # (Auto) 7.1 10^3/uL (1.5-6.6) H 01/22/24 00:00 Lymph # (Auto) 0.4 10^3/uL (1.5-3.5) L 01/22/24 00:00 [place] # (Auto) 0.2 10^3/uL (0.0-1.0) 01/22/24 00:00 Eos # (Auto) 0.0 10^3/uL (0.0-0.7) 01/22/24 00:00 Baso # (Auto) 0.0 10^3/uL (0.0-0.1) 01/22/24 00:00 Absolute Nucleated RBC 0.00 x10^3/uL 01/22/24 00:00 Nucleated RBC % 0.0 /100WBC 01/22/24 00:00 Bld Gas Analysis Time 0246 01/22/24 02:30 Sample Site RIGHT RADIAL 01/22/24 02:30 ABG pH 7.49 (7.35-7.45) H 01/22/24 02:30 ABG pCO2 26 mmHg (34-45) L 01/22/24 02:30 ABG pO2 89 mmHg (80-100) 01/22/24 02:30 ABG HCO3 19.1 mmol/L (22.0-26.0) L 01/22/24 02:30 ABG Total CO2 19.9 MMOL/L (21.0-29.0) L 01/22/24 02:30 ABG O2 Saturation 97 % (94-98) 01/22/24 02:30 ABG Base Excess -3.6 mmol/L (-2.0-3.0) L 01/22/24 02:30 Moi Test POSITIVE 01/22/24 02:30 O2 Delivery Device NASAL CANNULA 01/22/24 02:30 O2 Liters/Min 4.00 LPM 01/22/24 02:30 Sodium 138 mmol/L (135-145) 01/24/24 05:14 Potassium 3.4 mmol/L (3.5-4.5) L 01/24/24 05:14 Chloride 111 mmol/L (101-111) 01/24/24 05:14 Carbon Dioxide 20 mmol/L (21-32) L 01/24/24 05:14 Anion Gap 7.0 (6-13) 01/24/24 05:14 BUN 42 mg/dL (6-20) H 01/24/24 05:14 Creatinine 2.3 mg/dL (0.6-1.3) H 01/24/24 05:14 Estimated GFR (MDRD) 29 (>89) L 01/24/24 05:14 Glucose 110 mg/dL (74-104) H 01/24/24 05:14 POC Whole Bld Glucose 233 mg/dL (70 - 100) H 01/24/24 20:40 Estimat Average Glucose 123 mg/dL (70-100) H 01/22/24 08:23 Hemoglobin A1c % 5.9 % (4.27-6.07) 01/22/24 08:23 Calcium 8.4 mg/dL (8.5-10.3) L 01/24/24 05:14 Phosphorus 2.9 mg/dL (2.5-5.0) 01/24/24 05:14 Magnesium 1.7 mg/dL (1.7-2.3) 01/22/24 14:25 Iron 11 ug/dL (50-212) L 01/22/24 08:23 TIBC 165 ug/dL (250-450) L 01/22/24 08:23 % Saturation 7 % (20-50) L 01/22/24 08:23 Transferrin 118 mg/dL (203-362) L 01/22/24 08:23 Total Bilirubin 0.3 mg/dL (0.2-1.0) 01/22/24 00:00 AST 8 IU/L (10-42) L 01/22/24 00:00 ALT 6 IU/L (10-60) L 01/22/24 00:00 Alkaline Phosphatase 69 IU/L (42-121) 01/22/24 00:00 Troponin I High Sens 11.4 ng/L (2.3-19.7) 01/22/24 14:25 B-Natriuretic Peptide 81 pg/mL (5-100) 01/22/24 00:00 Total Protein 6.3 g/dL (6.4-8.9) L 01/22/24 00:00 Albumin 2.7 g/dL (3.2-5.5) L 01/24/24 05:14 Globulin 3.2 g/dL (2.1-4.2) 01/22/24 00:00 Albumin/Globulin Ratio 1.0 (1.0-2.2) 01/22/24 00:00 Lipase 22 U/L (11-82) 01/22/24 00:00 Nasal Adenovirus (PCR) NOT DETECTED 01/22/24 04:00 Nasal B. parapertussis DNA (PCR) NOT DETECTED 01/22/24 04:00 Nasal Coronavir 229E PCR NOT DETECTED 01/22/24 04:00 Nasal Coronavir HKU1 PCR NOT DETECTED 01/22/24 04:00 Nasal Coronavir NL63 PCR NOT DETECTED 01/22/24 04:00 Nasal Coronavir OC43 PCR NOT DETECTED 01/22/24 04:00 Nasal Enterovir/Rhinovir PCR NOT DETECTED 01/22/24 04:00 Nasal Influenza B PCR NOT DETECTED 01/22/24 04:00 Nasal Influenza A PCR NOT DETECTED 01/22/24 04:00 Nasal Parainfluen 1 PCR NOT DETECTED 01/22/24 04:00 Nasal Parainfluen 2 PCR NOT DETECTED 01/22/24 04:00 Nasal Parainfluen 3 PCR NOT DETECTED 01/22/24 04:00 Nasal Parainfluen 4 PCR NOT DETECTED 01/22/24 04:00 Nasal RSV (PCR) NOT DETECTED 01/22/24 04:00 Nasal B.pertussis DNA PCR NOT DETECTED 01/22/24 04:00 Nasal C.pneumoniae (PCR) NOT DETECTED 01/22/24 04:00 [place] Human Metapneumo PCR NOT DETECTED 01/22/24 04:00 Nasal M.pneumoniae (PCR) NOT DETECTED 01/22/24 04:00 Nasal SARS-CoV-2 (PCR) NOT DETECTED 01/22/24 04:00 Last Dose Date 01-22-24 01/24/24 05:14 Last Dose Time 11201/24/24 05:14 Random Vancomycin 25.5 ug/mL 01/24/24 05:14 - Procedures Procedures: Procedures ASSISTANCE WITH RESPIRATORY VENTILATION, <24 HRS, CPAP (12/19/23) INSERTION OF ENDOTRACHEAL AIRWAY INTO TRACHEA, VIA OPENING (12/19/23) INSERTION OF FEEDING DEVICE INTO STOMACH, VIA OPENING (12/19/23) INSERTION OF INFUSION DEV INTO SUP VENA CAVA, PERC APPROACH (12/19/23) INTRODUCTION OF NUTRITIONAL INTO UP GI, VIA OPENING (12/19/23) RESPIRATORY VENTILATION, GREATER THAN 96 CONSECUTIVE HOURS (12/19/23) TRANSFUSE NONAUT RED BLOOD CELLS IN PERIPH VEIN, PERC (12/19/23)
[2024-01-25] MEDS: VENLAFAXINE ER 37.5 MG CAPSULE PO SCH (08:35)
[2024-01-25] MEDS: predniSONE 20 MG TABLET PO SCH (08:35)
[2024-01-25 10:04] LABS: CALCIUM 8.3 mg/dL (8.5-10.3); CREATININE 2.1 mg/dL (0.6-1.3); MAGNESIUM 1.5 mg/dL (1.7-2.3)
[2024-01-25] MEDS: BENZONATATE 100 MG CAPSULE PO PRN (16:10)
--- NOTE | 2024-01-25 21:33 | PROVIDER PROGRESS NOTE ---
Assessment/Plan - Problem List (1) Acute renal failure Assessment/Plan: Creatinine has decreased to 2.1. Creatinine at baseline is normal.Renal failure may be related to high vancomycin levels. Vancomycin has not been initiated since patient was admitted. Continue normal saline at 100 mL/hour. Diuretics have been withheld. Avoid nephrotoxins. Renal ultrasound performed today revealed a partially distended bladder with a volume of 155 mL, and a large prostate that elevates the bladder floor. Study revealed a nonobstructive left renal calculus Sinus Tachycardia Transthoracic echo performed in demonstrated a left ventricular ejection fraction of 35-40% this study was performed in November. Echocardiogram performed on January 22, 2024 revealed an ejection fraction of 50- 55% with normal right ventricular size and function. Continue metoprolol for heart rate and blood pressure control. COPD Exacerbation Continue ipratropium/albuterol nebulizer treatments. Continue prednisone. Continue Pulmicort GERD Continue Pantoprazole and sucralfate. Speech therapy consult has been ordered for dysphagia. Hyperglycemia Continue sliding scale insulin. Right Foot Osteomyelitis Vancomycin was never initiated during this hospitalization. Cefepime has also been discontinued. Chronic Lower Back Pain Continue outpatient dose of methadone Anxiety Initiated treatment with venlafaxine. - Current Meds Current Meds: Current Medications Generic Name Dose Route Start Last Admin Trade Name Freq PRN Reason Stop Dose Admin Acetaminophen 650 mg 01/22/24 01:57 01/25/24 06:43 Acetaminophen 325 Mg Tablet PO 650 mg Q4HR PRN Administration Pain or Fever > 38C (100.4F) Albuterol/Ipratropium 3 ml 01/22/24 01:57 01/25/24 02:26 Ipratropium/Albuterol 3 Ml Neb INH 3 ml Q4H PRN Administration Asthma Benzonatate 100 mg 01/22/24 01:57 01/25/24 16:10 Benzonatate 100 Mg Capsule PO 100 mg TID PRN Administration Cough Budesonide 0.5 mg 01/22/24 07:00 01/25/24 20:30 Budesonide 0.5 Mg/2 Ml Neb INH 0.5 mg RTBID DARCIE Administration Calcium Carbonate/Glycine 500 mg 01/22/24 09:00 01/25/24 08:33 Calcium Carbonate Chew 500 Mg Tablet PO 500 mg BID DARCIE Administration Ferrous Sulfate 325 mg 01/22/24 09:00 01/25/24 08:35 Ferrous Sulfate 325 Mg Tablet PO 325 mg DAILY DARCIE Administration Fluticasone Propionate 1 sprays 01/22/24 09:00 01/25/24 08:45 Fluticasone Nasal [place] MONICA 1 spray BID DARCIE Administration Guaifenesin 400 mg 01/22/24 02:31 01/25/24 16:10 Guaifenesin 100 Mg/5 Ml Udc PO 400 mg Q6H PRN Administration Cough Heparin Sodium (Porcine) 5,000 unit 01/22/24 09:00 01/25/24 08:36 Heparin 5,000 Unit/Ml Vial SUBQ Not Given BID DARCIE Sodium Chloride 1,000 mls @ 100 mls/hr 01/22/24 03:00 01/25/24 08:51 Normal Saline 0.9% IV 100 mls/hr .Q10H DARCIE Administration Insulin Human Lispro 1 - 5 unit 01/22/24 08:00 01/25/24 17:33 Insulin Lispro 300 Unit/3 Ml Pen SUBQ 2 unit 0800,1200,1700,2100 DARCIE Administration Protocol Ipratropium [place] 0.5 mg 01/22/24 13:00 01/25/24 20:30 Ipratropium 0.2 Mg/Ml Neb INH 0.5 mg RTQ6H DARCIE Administration Lidocaine 1 patch 01/22/24 09:30 01/25/24 09:54 Lidocaine Patch 5% TOP 1 patch DAILY DARCIE Administration Loratadine 10 mg 01/22/24 09:00 01/25/24 08:35 Loratadine 10 Mg Tablet PO 10 mg DAILY DARCIE Administration Methadone HCl 2.5 mg 01/22/24 09:00 01/25/24 08:33 Methadone 5 Mg Tablet PO 2.5 mg BID DARCIE Administration Metoprolol Tartrate 5 mg 01/22/24 02:04 01/24/24 19:21 Metoprolol 5 Mg/5 Ml Vial IVP 5 mg Q6H PRN Administration Tachycardia Metoprolol Tartrate 12.5 mg 01/24/24 21:00 01/25/24 08:33 Metoprolol Tartrate 25 Mg Tablet PO 12.5 mg BID DARCIE Administration Mirtazapine 15 mg 01/22/24 21:00 01/24/24 21:07 Mirtazapine 15 Mg Tablet PO 15 mg QPM DARCIE Administration Montelukast Sodium 10 mg 01/22/24 21:00 01/24/24 21:07 Montelukast 10 Mg Tablet PO 10 mg QPM DARCIE Administration Multivitamins/Minerals 1 tab 01/22/24 09:00 01/25/24 08:35 Multivitamin W/Minerals Tablet PO 1 tab DAILY DARCIE Administration Nystatin 5 ml 01/22/24 09:00 01/25/24 16:07 Nystatin 569194 Units/5 Ml Udc PO 5 ml QID DARCIE Administration Pantoprazole Sodium 40 mg 01/22/24 09:00 01/25/24 08:35 Pantoprazole 40 Mg Tablet PO 40 mg BID DARCIE Administration Patient Own Med ( 1 each 01/22/24 09:00 01/25/24 08:54 Theophylline PO Not Given Anhydrous [ BID DARCIE Theophylline Er] 300 Mg Tab.Er.12h) Prednisone 40 mg 01/25/24 08:00 01/25/24 08:35 Prednisone 20 Mg Tablet PO 40 mg DAILYWM DARCIE Administration Sodium Chloride 10 ml 01/22/24 02:05 01/22/24 05:36 Sodium Chloride Flush 0.9% 10 Ml Syringe IVP 10 ml PRN PRN Administration NEEDED PER PROVIDER ORDERS Sodium Chloride 10 ml 01/22/24 09:00 01/25/24 16:07 Sodium Chloride Flush 0.9% 10 Ml Syringe IVP 10 ml 0100,0900,1700 DARCIE Administration Sucralfate 1 gm 01/22/24 07:00 01/25/24 16:07 Sucralfate 1 Gm/10 Ml Udc PO 1 gm 0700,1100,1600,2200 DARCIE Administration Venlafaxine HCl 37.5 mg 01/25/24 09:00 01/25/24 08:35 Venlafaxine Er 37.5 Mg Capsule PO 37.5 mg DAILY DARCIE Administration Zinc Sulfate 220 mg 01/22/24 17:00 01/25/24 08:35 Zinc Sulfate 220 Mg Capsule PO 220 mg DAILY DARCIE Administration - Lab Result Fish Bone Diagrams: 01/22/24 00:00 01/25/24 09:47 - Additional Planning My Orders: My Active Orders 01/25/24 08:00 predniSONE [Deltasone] 40 mg PO DAILYWM 01/25/24 09:00 Venlafaxine ER [Effexor ER] 37.5 mg PO DAILY 01/26/24 08:00 Magnesium Oxide [Mag Ox] 400 mg PO DAILYWM Neutra-Phos [K-Phos Neutral] 250 mg PO TIDWM Subjective - Subjective Patient Reports: Other (Alert. Denies chest pain, dyspnea, abdominal pain no other complaints at this time.) Objective Vital Signs: Vital Signs - 24 hr 01/24/24 01/25/24 01/25/24 23:57 02:25 07:26 Temperature 36.8 C 36.6 C Heart Rate 111 H Heart Rate [ 103 H 108 H Brachial] Respiratory 22 22 20 Rate Blood Pressure Blood Pressure 141/96 H 170/111 H [Right Brachial artery] O2 Saturation 94 97 If not protocol : Oxygen Flow, liters/minute 01/25/24 01/25/24 01/25/24 07:40 08:06 08:33 Temperature Heart Rate 79 Heart Rate [ Brachial] Respiratory 16 Rate Blood Pressure 142/90 H Blood Pressure 142/90 H [Right Brachial artery] O2 Saturation If not protocol : Oxygen Flow, liters/minute 01/25/24 01/25/24 13:03 20:30 Temperature Heart Rate 79 108 H Heart Rate [ Brachial] Respiratory 16 38 H Rate Blood Pressure Blood Pressure [Right Brachial artery] O2 Saturation If not protocol 2 : Oxygen Flow, liters/minute Oxygen O2 Source [With Activity] Nasal cannula O2 Source [Without Activity] Nasal cannula O2 Source Nasal cannula Oxygen Flow Rate 2 I&O (Last 24 Hrs): Intake and Output Totals x24h 01/23/24 01/24/24 01/25/24 23:59 23:59 23:59 Intake Total 4057.333 3796.000 2297 Output Total 550 900 475 Balance 3507.333 2896.000 1822 General: Alert, No acute distress Neck: No JVD, No thyromegaly Neuro: Non Focal Cardiovascular: Normal S1, Normal S2, No murmurs Respiratory: Other (Fair air exchange in all lung carney no wheezing no crackles.) Extremities: No cyanosis, No edema Skin: No rashes - Results Results: Laboratory Results WBC 7.8 x10^3/uL (4.8-10.8) 01/22/24 00:00 RBC 3.44 10^6/uL (4.70-6.10) L 01/22/24 00:00 Hgb 9.1 g/dL (14.0-18.0) L 01/22/24 00:00 Hct 30.4 % (42.0-52.0) L 01/22/24 00:00 MCV 88.4 fL (80.0-94.0) 01/22/24 00:00 MCH 26.5 pg (27.0-31.0) L 01/22/24 00:00 MCHC 29.9 g/dL (32.0-36.0) L 01/22/24 00:00 RDW 15.4 % (12.0-15.0) H 01/22/24 00:00 Plt Count 590 10^3/uL (130-450) H 01/22/24 00:00 MPV 9.2 fL (7.4-11.4) 01/22/24 00:00 Neut # (Auto) 7.1 10^3/uL (1.5-6.6) H 01/22/24 00:00 Lymph # (Auto) 0.4 10^3/uL (1.5-3.5) L 01/22/24 00:00 [place] # (Auto) 0.2 10^3/uL (0.0-1.0) 01/22/24 00:00 Eos # (Auto) 0.0 10^3/uL (0.0-0.7) 01/22/24 00:00 Baso # (Auto) 0.0 10^3/uL (0.0-0.1) 01/22/24 00:00 Absolute Nucleated RBC 0.00 x10^3/uL 01/22/24 00:00 Nucleated RBC % 0.0 /100WBC 01/22/24 00:00 Bld Gas Analysis Time 0246 01/22/24 02:30 Sample Site RIGHT RADIAL 01/22/24 02:30 ABG pH 7.49 (7.35-7.45) H 01/22/24 02:30 ABG pCO2 26 mmHg (34-45) L 01/22/24 02:30 ABG pO2 89 mmHg (80-100) 01/22/24 02:30 ABG HCO3 19.1 mmol/L (22.0-26.0) L 01/22/24 02:30 ABG Total CO2 19.9 MMOL/L (21.0-29.0) L 01/22/24 02:30 ABG O2 Saturation 97 % (94-98) 01/22/24 02:30 ABG Base Excess -3.6 mmol/L (-2.0-3.0) L 01/22/24 02:30 Moi Test POSITIVE 01/22/24 02:30 O2 Delivery Device NASAL CANNULA 01/22/24 02:30 O2 Liters/Min 4.00 LPM 01/22/24 02:30 Sodium 136 mmol/L (135-145) 01/25/24 09:47 Potassium 4.0 mmol/L (3.5-4.5) 01/25/24 09:47 Chloride 111 mmol/L (101-111) 01/25/24 09:47 Carbon Dioxide 19 mmol/L (21-32) L 01/25/24 09:47 Anion Gap 6.0 (6-13) 01/25/24 09:47 BUN 57 mg/dL (6-20) H 01/25/24 09:47 Creatinine 2.1 mg/dL (0.6-1.3) H 01/25/24 09:47 Estimated GFR (MDRD) 32 (>89) L 01/25/24 09:47 Glucose 153 mg/dL (74-104) H 01/25/24 09:47 POC Whole Bld Glucose 205 mg/dL (70 - 100) H 01/25/24 20:34 Estimat Average Glucose 123 mg/dL (70-100) H 01/22/24 08:23 Hemoglobin A1c % 5.9 % (4.27-6.07) 01/22/24 08:23 Calcium 8.3 mg/dL (8.5-10.3) L 01/25/24 09:47 Phosphorus 2.0 mg/dL (2.5-5.0) L 01/25/24 09:47 Magnesium 1.5 mg/dL (1.7-2.3) L 01/25/24 09:47 Iron 11 ug/dL (50-212) L 01/22/24 08:23 TIBC 165 ug/dL (250-450) L 01/22/24 08:23 % Saturation 7 % (20-50) L 01/22/24 08:23 Transferrin 118 mg/dL (203-362) L 01/22/24 08:23 Total Bilirubin 0.3 mg/dL (0.2-1.0) 01/22/24 00:00 AST 8 IU/L (10-42) L 01/22/24 00:00 ALT 6 IU/L (10-60) L 01/22/24 00:00 Alkaline Phosphatase 69 IU/L (42-121) 01/22/24 00:00 Troponin I High Sens 11.4 ng/L (2.3-19.7) 01/22/24 14:25 B-Natriuretic Peptide 81 pg/mL (5-100) 01/22/24 00:00 Total Protein 6.3 g/dL (6.4-8.9) L 01/22/24 00:00 Albumin 2.7 g/dL (3.2-5.5) L 01/24/24 05:14 Globulin 3.2 g/dL (2.1-4.2) 01/22/24 00:00 Albumin/Globulin Ratio 1.0 (1.0-2.2) 01/22/24 00:00 Lipase 22 U/L (11-82) 01/22/24 00:00 Nasal Adenovirus (PCR) NOT DETECTED 01/22/24 04:00 Nasal B. parapertussis DNA (PCR) NOT DETECTED 01/22/24 04:00 Nasal Coronavir 229E PCR NOT DETECTED 01/22/24 04:00 Nasal Coronavir HKU1 PCR NOT DETECTED 01/22/24 04:00 Nasal Coronavir NL63 PCR NOT DETECTED 01/22/24 04:00 Nasal Coronavir OC43 PCR NOT DETECTED 01/22/24 04:00 Nasal Enterovir/Rhinovir PCR NOT DETECTED 01/22/24 04:00 Nasal Influenza B PCR NOT DETECTED 01/22/24 04:00 Nasal Influenza A PCR NOT DETECTED 01/22/24 04:00 Nasal Parainfluen 1 PCR NOT DETECTED 01/22/24 04:00 Nasal Parainfluen 2 PCR NOT DETECTED 01/22/24 04:00 Nasal Parainfluen 3 PCR NOT DETECTED 01/22/24 04:00 Nasal Parainfluen 4 PCR NOT DETECTED 01/22/24 04:00 Nasal RSV (PCR) NOT DETECTED 01/22/24 04:00 Nasal B.pertussis DNA PCR NOT DETECTED 01/22/24 04:00 Nasal C.pneumoniae (PCR) NOT DETECTED 01/22/24 04:00 Monica Human Metapneumo PCR NOT DETECTED 01/22/24 04:00 Nasal M.pneumoniae (PCR) NOT DETECTED 01/22/24 04:00 Nasal SARS-CoV-2 (PCR) NOT DETECTED 01/22/24 04:00 Last Dose Date 01-22-24 01/24/24 05:14 Last Dose Time 1127 01/24/24 05:14 Random Vancomycin 25.5 ug/mL 01/24/24 05:14 - Procedures Procedures: Procedures ASSISTANCE WITH RESPIRATORY VENTILATION, <24 HRS, CPAP (12/19/23) INSERTION OF ENDOTRACHEAL AIRWAY INTO TRACHEA, VIA OPENING (12/19/23) INSERTION OF FEEDING DEVICE INTO STOMACH, VIA OPENING (12/19/23) INSERTION OF INFUSION DEV INTO SUP VENA CAVA, PERC APPROACH (12/19/23) INTRODUCTION OF NUTRITIONAL INTO UP GI, VIA OPENING (12/19/23) RESPIRATORY VENTILATION, GREATER THAN 96 CONSECUTIVE HOURS (12/19/23) TRANSFUSE NONAUT RED BLOOD CELLS IN PERIPH VEIN, PERC (12/19/23)
[2024-01-26 06:26] LABS: CALCIUM 8.2 mg/dL (8.5-10.3); POTASSIUM 3.6 mmol/L (3.5-4.5)
[2024-01-26] MEDS ORDERED: predniSONE 20 MG TABLET PO SCH (08:00)
[2024-01-26] MEDS: MAGNESIUM OXIDE 400 MG TABLET PO SCH (08:37)
[2024-01-26] MEDS: ALBUTEROL NEB 2.5 MG/3 ML INH PRN (08:59)
[2024-01-26] MEDS: NEUTRA-PHOS 250 MG TABLET PO SCH (10:14)
--- NOTE | 2024-01-26 13:47 | PROVIDER PROGRESS NOTE ---
Assessment/Plan - Problem List (1) Acute renal failure Assessment/Plan: Creatinine has decreased to 2.0. Creatinine at baseline is normal.Renal failure most likely related to high vancomycin levels. Vancomycin has not been initiated since patient was admitted. Continue normal saline at 100 mL/hour. Diuretics have been withheld. Avoid nephrotoxins. Renal ultrasound performed today revealed a partially distended bladder with a volume of 155 mL, and a large prostate that elevates the bladder floor. Study revealed a nonobstructive left renal calculus Sinus Tachycardia Transthoracic echo performed in November demonstrated a left ventricular ejection fraction of 35-40%. Echocardiogram performed on January 22, 2024 revealed an ejection fraction of 50- 55% with normal right ventricular size and function. Continue metoprolol for heart rate and blood pressure control. COPD Exacerbation Continue ipratropium/albuterol nebulizer treatments. Continue prednisone. Continue Pulmicort GERD Continue Pantoprazole and sucralfate. Speech therapy consult has been ordered for dysphagia. Hyperglycemia Continue sliding scale insulin. Right Foot Osteomyelitis Vancomycin was never initiated during this hospitalization. Cefepime has also been discontinued. Chronic Lower Back Pain Continue outpatient dose of methadone Anxiety Treatment initiated with venlafaxine. Disposition Patient continues to meet criteria for inpatient treatment given the fact that he has acute renal failure that appears to be improving with IV fluids. Plan is to continue inpatient treatment and IV fluids. - Current Meds Current Meds: Current Medications Generic Name Dose Route Start Last Admin Trade Name Freq PRN Reason Stop Dose Admin Acetaminophen 650 mg 01/22/24 01:57 01/25/24 06:43 Acetaminophen 325 Mg Tablet PO 650 mg Q4HR PRN Administration Pain or Fever > 38C (100.4F) Albuterol 2.5 mg 01/22/24 02:30 01/26/24 08:59 Albuterol Neb 2.5 Mg/3 Ml INH 2.5 mg RTQ4H PRN Administration Shortness of Air/Wheezing Albuterol/Ipratropium 3 ml 01/22/24 01:57 01/25/24 02:26 Ipratropium/Albuterol 3 Ml Neb INH 3 ml Q4H PRN Administration Asthma Benzonatate 100 mg 01/22/24 01:57 01/25/24 16:10 Benzonatate 100 Mg Capsule PO 100 mg TID PRN Administration Cough Budesonide 0.5 mg 01/22/24 07:00 01/26/24 08:59 Budesonide 0.5 Mg/2 Ml Neb INH 0.5 mg RTBID DARCIE Administration Calcium Carbonate/Glycine 500 mg 01/22/24 09:00 01/26/24 08:37 Calcium Carbonate Chew 500 Mg Tablet PO 500 mg BID DARCIE Administration Ferrous Sulfate 325 mg 01/22/24 09:00 01/26/24 08:36 Ferrous Sulfate 325 Mg Tablet PO 325 mg DAILY DARCIE Administration Fluticasone Propionate 1 sprays 01/22/24 09:00 01/26/24 08:41 Fluticasone Nasal [place] MONICA Not Given BID DARCIE Guaifenesin 400 mg 01/22/24 02:31 01/25/24 16:10 Guaifenesin 100 Mg/5 Ml Udc PO 400 mg Q6H PRN Administration Cough Heparin Sodium (Porcine) 5,000 unit 01/22/24 09:00 01/26/24 08:41 Heparin 5,000 Unit/Ml Vial SUBQ Not Given BID DARCIE Sodium Chloride 1,000 mls @ 100 mls/hr 01/22/24 03:00 01/26/24 08:44 Normal Saline 0.9% IV 100 mls/hr .Q10H DARCIE Administration Insulin Human Lispro 1 - 5 unit 01/22/24 08:00 01/26/24 11:11 Insulin Lispro 300 Unit/3 Ml Pen SUBQ Not Given 0800,1200,1700,2100 [facility] Protocol Ipratropium Amery 0.5 mg 01/22/24 13:00 01/26/24 13:42 Ipratropium 0.2 Mg/Ml Neb INH 0.5 mg RTQ6H DARCIE Administration Lidocaine 1 patch 01/22/24 09:30 01/26/24 13:20 Lidocaine Patch 5% TOP 1 patch DAILY DARCIE Administration Loratadine 10 mg 01/22/24 09:00 01/26/24 08:43 Loratadine 10 Mg Tablet PO 10 mg DAILY DARCIE Administration Magnesium Oxide 400 mg 01/26/24 08:00 01/26/24 08:37 Magnesium Oxide 400 Mg Tablet PO 01/27/24 08:01 400 mg DAILYWM DARCIE Administration Methadone HCl 2.5 mg 01/22/24 09:00 01/26/24 08:36 Methadone 5 Mg Tablet PO 2.5 mg BID DARCIE Administration Metoprolol Tartrate 5 mg 01/22/24 02:04 01/24/24 19:21 Metoprolol 5 Mg/5 Ml Vial IVP 5 mg Q6H PRN Administration Tachycardia Metoprolol Tartrate 12.5 mg 01/24/24 21:00 01/26/24 08:38 Metoprolol Tartrate 25 Mg Tablet PO 12.5 mg BID DARCIE Administration Mirtazapine 15 mg 01/22/24 21:00 01/25/24 22:07 Mirtazapine 15 Mg Tablet PO 15 mg QPM DARCIE Administration Montelukast Sodium 10 mg 01/22/24 21:00 01/25/24 22:06 Montelukast 10 Mg Tablet PO 10 mg QPM DARCIE Administration Multivitamins/Minerals 1 tab 01/22/24 09:00 01/26/24 08:37 Multivitamin W/Minerals Tablet PO 1 tab DAILY DARCIE Administration Nystatin 5 ml 01/22/24 09:00 01/26/24 13:09 Nystatin 535293 Units/5 Ml Udc PO 5 ml QID DARCIE Administration Pantoprazole Sodium 40 mg 01/22/24 09:00 01/26/24 08:37 Pantoprazole 40 Mg Tablet PO 40 mg BID DARCIE Administration Patient Own Med ( 1 each 01/22/24 09:00 01/26/24 08:43 Theophylline PO Not Given Anhydrous [ BID DARCIE Theophylline Er] 300 Mg Tab.Er.12h) Prednisone 40 mg 01/25/24 08:00 01/26/24 08:37 Prednisone 20 Mg Tablet PO 40 mg DAILYWM DARCIE Administration Sodium Chloride 10 ml 01/22/24 02:05 01/22/24 05:36 Sodium Chloride Flush 0.9% 10 Ml Syringe IVP 10 ml PRN PRN Administration NEEDED PER PROVIDER ORDERS Sodium Chloride 10 ml 01/22/24 09:00 01/26/24 08:38 Sodium Chloride Flush 0.9% 10 Ml Syringe IVP 10 ml 0100,0900,1700 DARCIE Administration Sodium Phosphate 250 mg 01/26/24 08:00 01/26/24 13:09 Neutra-Phos 250 Mg Tablet PO 01/26/24 17:01 250 mg TIDWM DARCIE Administration Sucralfate 1 gm 01/22/24 07:00 01/26/24 11:12 Sucralfate 1 Gm/10 Ml Udc PO 1 gm 0700,1100,1600,2200 DARCIE Administration Venlafaxine HCl 37.5 mg 01/25/24 09:00 01/26/24 08:38 Venlafaxine Er 37.5 Mg Capsule PO 37.5 mg DAILY DARCIE Administration Zinc Sulfate 220 mg 01/22/24 17:00 01/26/24 08:45 Zinc Sulfate 220 Mg Capsule PO 220 mg DAILY DARCIE Administration - Lab Result Fish Bone Diagrams: 01/22/24 00:00 01/26/24 06:00 - Additional Planning My Orders: My Active Orders 01/26/24 08:00 Magnesium Oxide [Mag Ox] 400 mg PO DAILYWM Neutra-Phos [K-Phos Neutral] 250 mg PO TIDWM Subjective - Subjective Patient Reports: Other (Alert. Denies chest pain, abdominal pain. Continues to complain of intermittent dyspnea with exertion but close to his baseline. No other complaints at this time.) Objective Vital Signs: Vital Signs - 24 hr 01/25/24 01/25/24 01/26/24 20:30 21:59 07:20 Temperature 36.6 C 36.7 C Heart Rate 108 H Heart Rate [ 101 H 101 H Brachial] Respiratory 38 H 20 20 Rate Blood Pressure 152/98 H 162/103 H [Right Brachial artery] O2 Saturation 99 95 If not protocol 2 2 : Oxygen Flow, liters/minute 01/26/24 01/26/24 09:00 11:21 Temperature 37.1 C Heart Rate 94 Heart Rate [ 92 Brachial] Respiratory 20 16 Rate Blood Pressure 147/90 H [Right Brachial artery] O2 Saturation 95 If not protocol : Oxygen Flow, liters/minute Oxygen O2 Source [With Activity] Nasal cannula O2 Source [Without Activity] Nasal cannula O2 Source Room air Oxygen Flow Rate 2 I&O (Last 24 Hrs): Intake and Output Totals x24h 01/24/24 01/25/24 01/26/24 23:59 23:59 23:59 Intake Total 3796.000 3297 1480 Output Total 900 750 575 Balance 2896.000 2547 905 General: Alert, No acute distress Neck: Supple, No JVD Neuro: Alert, Non Focal Cardiovascular: Other (Positive S1-S2 no extra heart sounds) Respiratory: Other (Fair air exchange in all lung carney. Coarse breath sounds. Positive expiratory wheezing.) Abdomen: Other (Soft, nontender nondistended positive bowel sounds) Extremities: No cyanosis, Other (Positive lower extremity edema.) Skin: No rashes - Results Results: Laboratory Results WBC 7.8 x10^3/uL (4.8-10.8) 01/22/24 00:00 RBC 3.44 10^6/uL (4.70-6.10) L 01/22/24 00:00 Hgb 9.1 g/dL (14.0-18.0) L 01/22/24 00:00 Hct 30.4 % (42.0-52.0) L 01/22/24 00:00 MCV 88.4 fL (80.0-94.0) 01/22/24 00:00 MCH 26.5 pg (27.0-31.0) L 01/22/24 00:00 MCHC 29.9 g/dL (32.0-36.0) L 01/22/24 00:00 RDW 15.4 % (12.0-15.0) H 01/22/24 00:00 Plt Count 590 10^3/uL (130-450) H 01/22/24 00:00 MPV 9.2 fL (7.4-11.4) 01/22/24 00:00 Neut # (Auto) 7.1 10^3/uL (1.5-6.6) H 01/22/24 00:00 Lymph # (Auto) 0.4 10^3/uL (1.5-3.5) L 01/22/24 00:00 [place] # (Auto) 0.2 10^3/uL (0.0-1.0) 01/22/24 00:00 Eos # (Auto) 0.0 10^3/uL (0.0-0.7) 01/22/24 00:00 Baso # (Auto) 0.0 10^3/uL (0.0-0.1) 01/22/24 00:00 Absolute Nucleated RBC 0.00 x10^3/uL 01/22/24 00:00 Nucleated RBC % 0.0 /100WBC 01/22/24 00:00 Bld Gas Analysis Time 0246 01/22/24 02:30 Sample Site RIGHT RADIAL 01/22/24 02:30 ABG pH 7.49 (7.35-7.45) H 01/22/24 02:30 ABG pCO2 26 mmHg (34-45) L 01/22/24 02:30 ABG pO2 89 mmHg (80-100) 01/22/24 02:30 ABG HCO3 19.1 mmol/L (22.0-26.0) L 01/22/24 02:30 ABG Total CO2 19.9 MMOL/L (21.0-29.0) L 01/22/24 02:30 ABG O2 Saturation 97 % (94-98) 01/22/24 02:30 ABG Base Excess -3.6 mmol/L (-2.0-3.0) L 01/22/24 02:30 Moi Test POSITIVE 01/22/24 02:30 O2 Delivery Device NASAL CANNULA 01/22/24 02:30 O2 Liters/Min 4.00 LPM 01/22/24 02:30 Sodium 137 mmol/L (135-145) 01/26/24 06:00 Potassium 3.6 mmol/L (3.5-4.5) 01/26/24 06:00 Chloride 114 mmol/L (101-111) H 01/26/24 06:00 Carbon Dioxide 17 mmol/L (21-32) L 01/26/24 06:00 Anion Gap 6.0 (6-13) 01/26/24 06:00 BUN 55 mg/dL (6-20) H 01/26/24 06:00 Creatinine 2.0 mg/dL (0.6-1.3) H 01/26/24 06:00 Estimated GFR (MDRD) 34 (>89) L 01/26/24 06:00 Glucose 97 mg/dL (74-104) 01/26/24 06:00 POC Whole Bld Glucose 132 mg/dL (70 - 100) H 01/26/24 11:06 Estimat Average Glucose 123 mg/dL (70-100) H 01/22/24 08:23 Hemoglobin A1c % 5.9 % (4.27-6.07) 01/22/24 08:23 Calcium 8.2 mg/dL (8.5-10.3) L 01/26/24 06:00 Phosphorus 2.0 mg/dL (2.5-5.0) L 01/25/24 09:47 Magnesium 1.5 mg/dL (1.7-2.3) L 01/25/24 09:47 Iron 11 ug/dL (50-212) L 01/22/24 08:23 TIBC 165 ug/dL (250-450) L 01/22/24 08:23 % Saturation 7 % (20-50) L 01/22/24 08:23 Transferrin 118 mg/dL (203-362) L 01/22/24 08:23 Total Bilirubin 0.3 mg/dL (0.2-1.0) 01/22/24 00:00 AST 8 IU/L (10-42) L 01/22/24 00:00 ALT 6 IU/L (10-60) L 01/22/24 00:00 Alkaline Phosphatase 69 IU/L (42-121) 01/22/24 00:00 Troponin I High Sens 11.4 ng/L (2.3-19.7) 01/22/24 14:25 B-Natriuretic Peptide 81 pg/mL (5-100) 01/22/24 00:00 Total Protein 6.3 g/dL (6.4-8.9) L 01/22/24 00:00 Albumin 2.7 g/dL (3.2-5.5) L 01/24/24 05:14 Globulin 3.2 g/dL (2.1-4.2) 01/22/24 00:00 Albumin/Globulin Ratio 1.0 (1.0-2.2) 01/22/24 00:00 Lipase 22 U/L (11-82) 01/22/24 00:00 Nasal Adenovirus (PCR) NOT DETECTED 01/22/24 04:00 Nasal B. parapertussis DNA (PCR) NOT DETECTED 01/22/24 04:00 Nasal Coronavir 229E PCR NOT DETECTED 01/22/24 04:00 Nasal Coronavir HKU1 PCR NOT DETECTED 01/22/24 04:00 Nasal Coronavir NL63 PCR NOT DETECTED 01/22/24 04:00 Nasal Coronavir OC43 PCR NOT DETECTED 01/22/24 04:00 Nasal Enterovir/Rhinovir PCR NOT DETECTED 01/22/24 04:00 Nasal Influenza B PCR NOT DETECTED 01/22/24 04:00 Nasal Influenza A PCR NOT DETECTED 01/22/24 04:00 Nasal Parainfluen 1 PCR NOT DETECTED 01/22/24 04:00 Nasal Parainfluen 2 PCR NOT DETECTED 01/22/24 04:00 Nasal Parainfluen 3 PCR NOT DETECTED 01/22/24 04:00 Nasal Parainfluen 4 PCR NOT DETECTED 01/22/24 04:00 Nasal RSV (PCR) NOT DETECTED 01/22/24 04:00 Nasal B.pertussis DNA PCR NOT DETECTED 01/22/24 04:00 Nasal C.pneumoniae (PCR) NOT DETECTED 01/22/24 04:00 Monica Human Metapneumo PCR NOT DETECTED 01/22/24 04:00 Nasal M.pneumoniae (PCR) NOT DETECTED 01/22/24 04:00 Nasal SARS-CoV-2 (PCR) NOT DETECTED 01/22/24 04:00 Last Dose Date 01-22-24 01/24/24 05:14 Last Dose Time 1127 01/24/24 05:14 Random Vancomycin 25.5 ug/mL 01/24/24 05:14 - Procedures Procedures: Procedures ASSISTANCE WITH RESPIRATORY VENTILATION, <24 HRS, CPAP (12/19/23) INSERTION OF ENDOTRACHEAL AIRWAY INTO TRACHEA, VIA OPENING (12/19/23) INSERTION OF FEEDING DEVICE INTO STOMACH, VIA OPENING (12/19/23) INSERTION OF INFUSION DEV INTO SUP VENA CAVA, PERC APPROACH (12/19/23) INTRODUCTION OF NUTRITIONAL INTO UP GI, VIA OPENING (12/19/23) RESPIRATORY VENTILATION, GREATER THAN 96 CONSECUTIVE HOURS (12/19/23) TRANSFUSE NONAUT RED BLOOD CELLS IN PERIPH VEIN, PERC (12/19/23)
[2024-01-26] MEDS: SODIUM BICARBONATE 650 MG TABLET PO SCH (15:28)
[2024-01-27] MEDS: METOPROLOL 5 MG/5 ML VIAL IVP STA (06:06)
[2024-01-27 06:12] LABS: CALCIUM 8.1 mg/dL (8.5-10.3); CREATININE 1.9 mg/dL (0.6-1.3); MAGNESIUM 1.5 mg/dL (1.7-2.3); PHOSPHORUS 2.7 mg/dL (2.5-5.0); POTASSIUM 3.2 mmol/L (3.5-4.5)
[2024-01-27] MEDS: METOPROLOL TARTRATE 25 MG TABLET PO SCH ×2 (10:51→23:13)
[2024-01-27] MEDS: polyethylene glycoL 3350 17 GM PACKET PO PRN (13:56)
[2024-01-27] MEDS: SENNA 8.6 MG TABLET PO SCH (13:56)
--- NOTE | 2024-01-27 20:22 | PROVIDER PROGRESS NOTE ---
Assessment/Plan - Problem List (1) Acute renal failure Assessment/Plan: Creatinine has decreased to 1.9. Creatinine at baseline is normal.Renal failure most likely related to high vancomycin levels. Vancomycin has not been initiated since patient was admitted. Continue normal saline at 100 mL/hour. Diuretics have been withheld. Avoid nephrotoxins. Trial of Lasix in the morning. Sinus Tachycardia Transthoracic echo performed in November demonstrated a left ventricular ejection fraction of 35-40%. Echocardiogram performed on January 22, 2024 revealed an ejection fraction of 50- 55% with normal right ventricular size and function. Continue metoprolol for heart rate and blood pressure control. COPD Exacerbation Continue ipratropium/albuterol nebulizer treatments. Continue prednisone. Continue Pulmicort GERD Continue Pantoprazole and sucralfate. Speech therapy consult has been ordered for dysphagia. Hyperglycemia Continue sliding scale insulin. Right Foot Osteomyelitis Vancomycin was never initiated during this hospitalization. Cefepime has also been discontinued. Chronic Lower Back Pain Continue outpatient dose of methadone Anxiety Treatment initiated with venlafaxine. Disposition Patient continues to meet criteria for inpatient treatment given the fact that he has acute renal failure that appears to be improving with IV fluids. Plan is to continue inpatient treatment and IV fluids. - Current Meds Current Meds: Current Medications Generic Name Dose Route Start Last Admin Trade Name Freq PRN Reason Stop Dose Admin Acetaminophen 650 mg 01/22/24 01:57 01/25/24 06:43 Acetaminophen 325 Mg Tablet PO 650 mg Q4HR PRN Administration Pain or Fever > 38C (100.4F) Albuterol 2.5 mg 01/22/24 02:30 01/26/24 08:59 Albuterol Neb 2.5 Mg/3 Ml INH 2.5 mg RTQ4H PRN Administration Shortness of Air/Wheezing Albuterol/Ipratropium 3 ml 01/22/24 01:57 01/26/24 20:29 Ipratropium/Albuterol 3 Ml Neb INH 3 ml Q4H PRN Administration Asthma Benzonatate 100 mg 01/22/24 01:57 01/25/24 16:10 Benzonatate 100 Mg Capsule PO 100 mg TID PRN Administration Cough Budesonide 0.5 mg 01/22/24 07:00 01/27/24 07:32 Budesonide 0.5 Mg/2 Ml Neb INH 0.5 mg RTBID DARCIE Administration Calcium Carbonate/Glycine 500 mg 01/22/24 09:00 01/27/24 08:52 Calcium Carbonate Chew 500 Mg Tablet PO 500 mg BID DARCIE Administration Ferrous Sulfate 325 mg 01/22/24 09:00 01/27/24 08:51 Ferrous Sulfate 325 Mg Tablet PO 325 mg DAILY DARCIE Administration Fluticasone Propionate 1 sprays 01/22/24 09:00 01/27/24 08:51 Fluticasone Nasal [place] MONICA 1 spray BID DARCIE Administration Guaifenesin 400 mg 01/22/24 02:31 01/25/24 16:10 Guaifenesin 100 Mg/5 Ml Udc PO 400 mg Q6H PRN Administration Cough Heparin Sodium (Porcine) 5,000 unit 01/22/24 09:00 01/27/24 09:03 Heparin 5,000 Unit/Ml Vial SUBQ 5,000 unit BID DARCIE Administration Sodium Chloride 1,000 mls @ 100 mls/hr 01/22/24 03:00 01/27/24 12:16 Normal Saline 0.9% IV 100 mls/hr .Q10H DARCIE Administration Insulin Human Lispro 1 - 5 unit 01/22/24 08:00 01/27/24 19:34 Insulin Lispro 300 Unit/3 Ml Pen SUBQ 1 unit 0800,1200,1700,2100 DARCIE Administration Protocol Ipratropium [place] 0.5 mg 01/22/24 13:00 01/27/24 13:41 Ipratropium 0.2 Mg/Ml Neb INH 0.5 mg RTQ6H DARCIE Administration Lidocaine 1 patch 01/22/24 09:30 01/27/24 08:52 Lidocaine Patch 5% TOP 1 patch DAILY DARCIE Administration Loratadine 10 mg 01/22/24 09:00 01/27/24 09:02 Loratadine 10 Mg Tablet PO 10 mg DAILY DARCIE Administration Methadone HCl 2.5 mg 01/22/24 09:00 01/27/24 08:52 Methadone 5 Mg Tablet PO 2.5 mg BID DARCIE Administration Metoprolol Tartrate 5 mg 01/22/24 02:04 01/24/24 19:21 Metoprolol 5 Mg/5 Ml Vial IVP 5 mg Q6H PRN Administration Tachycardia Metoprolol Tartrate 12.5 mg 01/27/24 10:13 01/27/24 10:51 Metoprolol Tartrate 25 Mg Tablet PO 12.5 mg BID DARCIE Administration Mirtazapine 15 mg 01/22/24 21:00 01/26/24 22:24 Mirtazapine 15 Mg Tablet PO 15 mg QPM DARCIE Administration Montelukast Sodium 10 mg 01/22/24 21:00 01/26/24 22:24 Montelukast 10 Mg Tablet PO 10 mg QPM DARCIE Administration Multivitamins/Minerals 1 tab 01/22/24 09:00 01/27/24 08:51 Multivitamin W/Minerals Tablet PO 1 tab DAILY DARCIE Administration Nystatin 5 ml 01/22/24 09:00 01/27/24 19:33 Nystatin 016636 Units/5 Ml Udc PO 5 ml QID DARCIE Administration Pantoprazole Sodium 40 mg 01/22/24 09:00 01/27/24 08:54 Pantoprazole 40 Mg Tablet PO 40 mg BID DARCIE Administration Patient Own Med ( 1 each 01/22/24 09:00 01/27/24 08:59 Theophylline PO Not Given Anhydrous [ BID DARCIE Theophylline Er] 300 Mg Tab.Er.12h) Polyethylene Glycol 17 gm 01/22/24 01:57 01/27/24 13:56 Polyethylene Glycol 3350 17 Gm Packet PO 17 gm DAILY PRN Administration Constipation Prednisone 40 mg 01/25/24 08:00 01/27/24 08:54 Prednisone 20 Mg Tablet PO 40 mg DAILYWM DARCIE Administration Senna 8.6 mg 01/27/24 13:37 01/27/24 13:56 Senna 8.6 Mg Tablet PO 8.6 mg DAILY DARCIE Administration Sodium Bicarbonate 650 mg 01/26/24 14:37 01/27/24 08:51 Sodium Bicarbonate 650 Mg Tablet PO 01/28/24 09:01 650 mg DAILY DARCIE Administration Sodium Chloride 10 ml 01/22/24 02:05 01/22/24 05:36 Sodium Chloride Flush 0.9% 10 Ml Syringe IVP 10 ml PRN PRN Administration NEEDED PER PROVIDER ORDERS Sodium Chloride 10 ml 01/22/24 09:00 01/27/24 19:48 Sodium Chloride Flush 0.9% 10 Ml Syringe IVP Not Given 0100,0900,1700 DARCIE Sucralfate 1 gm 01/22/24 07:00 01/27/24 19:33 Sucralfate 1 Gm/10 Ml Udc PO 1 gm 0700,1100,1600,2200 DARCIE Administration Venlafaxine HCl 37.5 mg 01/25/24 09:00 01/27/24 08:52 Venlafaxine Er 37.5 Mg Capsule PO 37.5 mg DAILY DARCIE Administration Zinc Sulfate 220 mg 01/22/24 17:00 01/27/24 08:54 Zinc Sulfate 220 Mg Capsule PO 220 mg DAILY DARCIE Administration - Lab Result Fish Bone Diagrams: 01/22/24 00:00 01/27/24 05:22 - Additional Planning My Orders: My Active Orders 01/27/24 10:13 Metoprolol Tartrate [Lopressor] 12.5 mg PO BID 01/27/24 13:37 Senna [Senokot] 8.6 mg PO DAILY 01/27/24 21:00 Metoprolol Tartrate [Lopressor] 25 mg PO BID Potassium Chloride Oral Soln [Potassium Chloride] 40 meq PO ONCE 01/28/24 09:00 Furosemide [Lasix] 40 mg PO DAILY Potassium Chloride Oral Soln [Potassium Chloride] 40 meq PO ONCE 01/28/24 20:16 Magnesium Oxide [Mag Ox] 400 mg PO DAILYWM Subjective - Subjective Patient Reports: Other (Alert. Following commands. Denies chest pain, dyspnea and abdominal pain no other complaints at this time.) Objective Vital Signs: Vital Signs - 24 hr 01/26/24 01/27/24 01/27/24 20:30 01:20 05:19 Temperature 36.6 C Heart Rate 96 101 H Heart Rate [ 118 H Brachial] Respiratory 24 28 H 18 Rate Blood Pressure Blood Pressure 163/114 H [Right Brachial artery] O2 Saturation 96 01/27/24 01/27/24 01/27/24 05:43 06:06 06:14 Temperature Heart Rate Heart Rate [ 117 H 106 H Brachial] Respiratory Rate Blood Pressure 173/113 H Blood Pressure 171/112 H 172/102 H [Right Brachial artery] O2 Saturation 96 01/27/24 01/27/24 01/27/24 06:20 06:25 06:40 Temperature Heart Rate Heart Rate [ 107 H 106 H 106 H Brachial] Respiratory Rate Blood Pressure Blood Pressure 166/105 H 166/102 H 168/107 H [Right Brachial artery] O2 Saturation 01/27/24 01/27/24 01/27/24 06:55 07:34 07:55 Temperature 36.6 C Heart Rate 104 H Heart Rate [ 109 H 107 H Brachial] Respiratory 20 20 Rate Blood Pressure Blood Pressure 157/107 H 169/105 H [Right Brachial artery] O2 Saturation 97 01/27/24 01/27/24 01/27/24 08:54 10:52 13:41 Temperature Heart Rate 97 Heart Rate [ Brachial] Respiratory 20 Rate Blood Pressure 165/111 H Blood Pressure 165/100 H [Right Brachial artery] O2 Saturation 01/27/24 16:03 Temperature 37.0 C Heart Rate Heart Rate [ 103 H Brachial] Respiratory 20 Rate Blood Pressure Blood Pressure 163/102 H [Right Brachial artery] O2 Saturation 96 Oxygen O2 Source [With Activity] Nasal cannula O2 Source [Without Activity] Nasal cannula O2 Source Room air Oxygen Flow Rate 2 I&O (Last 24 Hrs): Intake and Output Totals x24h 01/25/24 01/26/24 01/27/24 23:59 23:59 23:59 Intake Total 3297 3320 2768.333 Output Total 750 1300 1250 Balance 2547 2020 1518.333 General: Alert, No acute distress Neck: Supple, No JVD Neuro: Alert, Non Focal Cardiovascular: Other (Positive S1-S2 no extra heart sounds.) Respiratory: Other (Good air exchange in all lung carney no wheezing no crackles.) Abdomen: Other (Positive S1-S2 no extra heart sounds.) Extremities: No cyanosis, No edema Skin: No rashes - Results Results: Laboratory Results WBC 7.8 x10^3/uL (4.8-10.8) 01/22/24 00:00 RBC 3.44 10^6/uL (4.70-6.10) L 01/22/24 00:00 Hgb 9.1 g/dL (14.0-18.0) L 01/22/24 00:00 Hct 30.4 % (42.0-52.0) L 01/22/24 00:00 MCV 88.4 fL (80.0-94.0) 01/22/24 00:00 MCH 26.5 pg (27.0-31.0) L 01/22/24 00:00 MCHC 29.9 g/dL (32.0-36.0) L 01/22/24 00:00 RDW 15.4 % (12.0-15.0) H 01/22/24 00:00 Plt Count 590 10^3/uL (130-450) H 01/22/24 00:00 MPV 9.2 fL (7.4-11.4) 01/22/24 00:00 Neut # (Auto) 7.1 10^3/uL (1.5-6.6) H 01/22/24 00:00 Lymph # (Auto) 0.4 10^3/uL (1.5-3.5) L 01/22/24 00:00 Bracken # (Auto) 0.2 10^3/uL (0.0-1.0) 01/22/24 00:00 Eos # (Auto) 0.0 10^3/uL (0.0-0.7) 01/22/24 00:00 Baso # (Auto) 0.0 10^3/uL (0.0-0.1) 01/22/24 00:00 Absolute Nucleated RBC 0.00 x10^3/uL 01/22/24 00:00 Nucleated RBC % 0.0 /100WBC 01/22/24 00:00 Bld Gas Analysis Time 0246 01/22/24 02:30 Sample Site RIGHT RADIAL 01/22/24 02:30 ABG pH 7.49 (7.35-7.45) H 01/22/24 02:30 ABG pCO2 26 mmHg (34-45) L 01/22/24 02:30 ABG pO2 89 mmHg (80-100) 01/22/24 02:30 ABG HCO3 19.1 mmol/L (22.0-26.0) L 01/22/24 02:30 ABG Total CO2 19.9 MMOL/L (21.0-29.0) L 01/22/24 02:30 ABG O2 Saturation 97 % (94-98) 01/22/24 02:30 ABG Base Excess -3.6 mmol/L (-2.0-3.0) L 01/22/24 02:30 Moi Test POSITIVE 01/22/24 02:30 O2 Delivery Device NASAL CANNULA 01/22/24 02:30 O2 Liters/Min 4.00 LPM 01/22/24 02:30 Sodium 140 mmol/L (135-145) 01/27/24 05:22 Potassium 3.2 mmol/L (3.5-4.5) L 01/27/24 05:22 Chloride 115 mmol/L (101-111) H 01/27/24 05:22 Carbon Dioxide 18 mmol/L (21-32) L 01/27/24 05:22 Anion Gap 7.0 (6-13) 01/27/24 05:22 BUN 46 mg/dL (6-20) H 01/27/24 05:22 Creatinine 1.9 mg/dL (0.6-1.3) H 01/27/24 05:22 Estimated GFR (MDRD) 36 (>89) L 01/27/24 05:22 Glucose 114 mg/dL (74-104) H 01/27/24 05:22 POC Whole Bld Glucose 156 mg/dL (70 - 100) H 01/27/24 16:51 Estimat Average Glucose 123 mg/dL (70-100) H 01/22/24 08:23 Hemoglobin A1c % 5.9 % (4.27-6.07) 01/22/24 08:23 Calcium 8.1 mg/dL (8.5-10.3) L 01/27/24 05:22 Phosphorus 2.7 mg/dL (2.5-5.0) 01/27/24 05:22 Magnesium 1.5 mg/dL (1.7-2.3) L 01/27/24 05:22 Iron 11 ug/dL (50-212) L 01/22/24 08:23 TIBC 165 ug/dL (250-450) L 01/22/24 08:23 % Saturation 7 % (20-50) L 01/22/24 08:23 Transferrin 118 mg/dL (203-362) L 01/22/24 08:23 Total Bilirubin 0.3 mg/dL (0.2-1.0) 01/22/24 00:00 AST 8 IU/L (10-42) L 01/22/24 00:00 ALT 6 IU/L (10-60) L 01/22/24 00:00 Alkaline Phosphatase 69 IU/L (42-121) 01/22/24 00:00 Troponin I High Sens 11.4 ng/L (2.3-19.7) 01/22/24 14:25 B-Natriuretic Peptide 81 pg/mL (5-100) 01/22/24 00:00 Total Protein 6.3 g/dL (6.4-8.9) L 01/22/24 00:00 Albumin 2.7 g/dL (3.2-5.5) L 01/24/24 05:14 Globulin 3.2 g/dL (2.1-4.2) 01/22/24 00:00 Albumin/Globulin Ratio 1.0 (1.0-2.2) 01/22/24 00:00 Lipase 22 U/L (11-82) 01/22/24 00:00 Nasal Adenovirus (PCR) NOT DETECTED 01/22/24 04:00 Nasal B. parapertussis DNA (PCR) NOT DETECTED 01/22/24 04:00 Nasal Coronavir 229E PCR NOT DETECTED 01/22/24 04:00 Nasal Coronavir HKU1 PCR NOT DETECTED 01/22/24 04:00 Nasal Coronavir NL63 PCR NOT DETECTED 01/22/24 04:00 Nasal Coronavir OC43 PCR NOT DETECTED 01/22/24 04:00 Nasal Enterovir/Rhinovir PCR NOT DETECTED 01/22/24 04:00 Nasal Influenza B PCR NOT DETECTED 01/22/24 04:00 Nasal Influenza A PCR NOT DETECTED 01/22/24 04:00 Nasal Parainfluen 1 PCR NOT DETECTED 01/22/24 04:00 Nasal Parainfluen 2 PCR NOT DETECTED 01/22/24 04:00 Nasal Parainfluen 3 PCR NOT DETECTED 01/22/24 04:00 Nasal Parainfluen 4 PCR NOT DETECTED 01/22/24 04:00 Nasal RSV (PCR) NOT DETECTED 01/22/24 04:00 Nasal B.pertussis DNA PCR NOT DETECTED 01/22/24 04:00 Nasal C.pneumoniae (PCR) NOT DETECTED 01/22/24 04:00 Monica Human Metapneumo PCR NOT DETECTED 01/22/24 04:00 Nasal M.pneumoniae (PCR) NOT DETECTED 01/22/24 04:00 Nasal SARS-CoV-2 (PCR) NOT DETECTED 01/22/24 04:00 Last Dose Date 01-22-24 01/24/24 05:14 Last Dose Time 1127 01/24/24 05:14 Random Vancomycin 25.5 ug/mL 01/24/24 05:14 - Procedures Procedures: Procedures ASSISTANCE WITH RESPIRATORY VENTILATION, <24 HRS, CPAP (12/19/23) INSERTION OF ENDOTRACHEAL AIRWAY INTO TRACHEA, VIA OPENING (12/19/23) INSERTION OF FEEDING DEVICE INTO STOMACH, VIA OPENING (12/19/23) INSERTION OF INFUSION DEV INTO SUP VENA CAVA, PERC APPROACH (12/19/23) INTRODUCTION OF NUTRITIONAL INTO UP GI, VIA OPENING (12/19/23) RESPIRATORY VENTILATION, GREATER THAN 96 CONSECUTIVE HOURS (12/19/23) TRANSFUSE NONAUT RED BLOOD CELLS IN PERIPH VEIN, PERC (12/19/23)
[2024-01-27] MEDS: POTASSIUM CHLORIDE 20 MEQ/15 ML UDC PO SCH (23:20)
[2024-01-28] MEDS ORDERED: METOPROLOL 5 MG/5 ML VIAL IVP PRN (01:50)
[2024-01-28] MEDS: hydrALAZINE INJ 20 MG/ML VIAL IVP PRN (04:12)
[2024-01-28 05:55] LABS: CALCIUM 8.1 mg/dL (8.5-10.3); CREATININE 1.7 mg/dL (0.6-1.3); MAGNESIUM 1.4 mg/dL (1.7-2.3); PHOSPHORUS 2.3 mg/dL (2.5-5.0); POTASSIUM 3.3 mmol/L (3.5-4.5)
[2024-01-28 07:38] LABS: BASOPHILS % (AUTO) 0.1 %; HCT - HEMATOCRIT 32.6 % (42.0-52.0); HGB - HEMOGLOBIN 9.9 g/dL (14.0-18.0); MEAN CORPUSCULAR HEMOGLOBIN 26.3 pg (27.0-31.0); MEAN CORPUSCULAR HGB CONC 30.4 g/dL (32.0-36.0); MEAN CORPUSCULAR VOLUME 86.5 fL (80.0-94.0); MEAN PLATELET VOLUME 9.7 fL (7.4-11.4); MONOCYTES # (AUTO) 1.5 10^3/uL (0.0-1.0); MONOCYTES % (AUTO) 9.9 %; PLT - PLATELET COUNT 336 10^3/uL (130-450); RED BLOOD COUNT 3.77 10^6/uL (4.70-6.10); RED CELL DISTRIBUTION WIDTH 15.6 % (12.0-15.0); WHITE BLOOD COUNT 14.7 x10^3/uL (4.8-10.8)
[2024-01-28] MEDS ORDERED: POTASSIUM CHLORIDE 20 MEQ/15 ML UDC PO SCH ×2 (08:00→09:00)
--- NOTE | 2024-01-28 08:03 | XRAY Report ---
PROCEDURE: Chest 1V INDICATIONS: Shortness of breath TECHNIQUE: One view of the chest was acquired. COMPARISON: 01/22/2024, 01/20/2024, 01/15/2024 and 01/12/2024. FINDINGS: Surgical changes and devices: Surgical hardware in lower cervical spine are seen. Left-sided PICC li ne tip is in SVC. Lungs and pleura: No pleural effusions or pneumothorax. Subtle opacity in lateral aspect of right quin ng base is seen. Left mild pulmonary vascular congestion is also seen. Mediastinum: Mediastinal contours appear normal. Heart size is normal. Bones and chest wall: No suspicious bony lesions. Overlying soft tissues appear unremarkable. IMPRESSION: Finding may represent subtle right basilar infiltrate versus atelectasis. Mild pulmonary vascular con gestion. No significant pleural effusion or gross pneumothorax. Findings are concordant with preliminary interpretation provided by [facility]. Reviewed by: Reinier Gunn MD on 01/28/2024 8:02 AM PDT Approved by: Reinier Gunn MD on 01/28/2024 8:02 AM PDT Station ID: [id number]
[2024-01-28] MEDS: cefTRIAXone 2 GM in SODIUM CHLORIDE 0.9% MINIBAG 100 ML IV SCH (08:44)
[2024-01-28] MEDS: FUROSEMIDE 40 MG/4 ML VIAL IVP SCH (08:56)
[2024-01-28] MEDS ORDERED: FUROSEMIDE 40 MG TABLET PO SCH (09:00)
[2024-01-28] MEDS: SPIRONOLACTONE 25 MG TABLET PO SCH (09:09)
[2024-01-28] MEDS: POTASSIUM CHLORIDE 20 MEQ/15 ML UDC PO ONE ×2 (09:14→17:41)
[2024-01-28] MEDS: AZITHROMYCIN INJ 500 MG in SODIUM CHLORIDE 0.9% 250 ML IV SCH (11:23)
[2024-01-28] MEDS: MAGNESIUM OXIDE 400 MG TABLET PO SCH (21:11)
[2024-01-28 21:21] LABS: CALCIUM 8.5 mg/dL (8.5-10.3); CREATININE 1.6 mg/dL (0.6-1.3); POTASSIUM 3.3 mmol/L (3.5-4.5)
--- NOTE | 2024-01-28 21:51 | PROVIDER PROGRESS NOTE ---
Assessment/Plan - Problem List (1) Acute renal failure Assessment/Plan: Creatinine has decreased to 1.9. Creatinine at baseline is normal.Renal failure most likely related to high vancomycin levels. Vancomycin has not been initiated since patient was admitted. NS discontinued Restart diuretics Avoid nephrotoxins. Sinus Tachycardia Transthoracic echo performed in November demonstrated a left ventricular ejection fraction of 35-40%. Echocardiogram performed on January 22, 2024 revealed an ejection fraction of 50- 55% with normal right ventricular size and function. Continue metoprolol for heart rate and blood pressure control. COPD Exacerbation Continue ipratropium/albuterol nebulizer treatments. Discontinue prednisone. Continue Pulmicort GERD Continue Pantoprazole and sucralfate. Hyperglycemia Continue sliding scale insulin. Right Foot Osteomyelitis Vancomycin was never initiated during this hospitalization. Cefepime has also been discontinued. Chronic Lower Back Pain Continue outpatient dose of methadone Anxiety Treatment initiated with venlafaxine. Disposition Patient continues to meet criteria for inpatient treatment given the fact that he has acute renal failure that appears to be improving with IV fluids. Plan is to continue inpatient treatment and IV fluids. - Current Meds Current Meds: Current Medications Generic Name Dose Route Start Last Admin Trade Name Freq PRN Reason Stop Dose Admin Acetaminophen 650 mg 01/22/24 01:57 01/25/24 06:43 Acetaminophen 325 Mg Tablet PO 650 mg Q4HR PRN Administration Pain or Fever > 38C (100.4F) Albuterol 2.5 mg 01/22/24 02:30 01/28/24 20:04 Albuterol Neb 2.5 Mg/3 Ml INH 2.5 mg RTQ4H PRN Administration Shortness of Air/Wheezing Albuterol/Ipratropium 3 ml 01/22/24 01:57 01/26/24 20:29 Ipratropium/Albuterol 3 Ml Neb INH 3 ml Q4H PRN Administration Asthma Benzonatate 100 mg 01/22/24 01:57 01/28/24 21:12 Benzonatate 100 Mg Capsule PO 100 mg TID PRN Administration Cough Budesonide 0.5 mg 01/22/24 07:00 01/28/24 17:55 Budesonide 0.5 Mg/2 Ml Neb INH 0.5 mg RTBID DARCIE Administration Calcium Carbonate/Glycine 500 mg 01/22/24 09:00 01/28/24 21:10 Calcium Carbonate Chew 500 Mg Tablet PO 500 mg BID DARCIE Administration Ferrous Sulfate 325 mg 01/22/24 09:00 01/28/24 11:18 Ferrous Sulfate 325 Mg Tablet PO Not Given DAILY [facility] Fluticasone Propionate 1 sprays 01/22/24 09:00 01/28/24 21:10 Fluticasone Nasal [place] MONICA Not Given BID DARCIE Furosemide 40 mg 01/28/24 08:00 01/28/24 09:09 Furosemide 40 Mg/4 Ml Vial IVP Not Given DAILY [facility] Guaifenesin 400 mg 01/22/24 02:31 01/25/24 16:10 Guaifenesin 100 Mg/5 Ml Udc PO 400 mg Q6H PRN Administration Cough Heparin Sodium (Porcine) 5,000 unit 01/22/24 09:00 01/28/24 21:19 Heparin 5,000 Unit/Ml Vial SUBQ Not Given BID [facility] Hydralazine HCl 10 mg 01/28/24 03:41 01/28/24 04:12 Hydralazine Inj 20 Mg/Ml Vial IVP 10 mg Q6H PRN Administration other Insulin Human Lispro 1 - 5 unit 01/22/24 08:00 01/28/24 17:18 Insulin Lispro 300 Unit/3 Ml Pen SUBQ Not Given 0800,1200,1700,2100 [facility] Protocol Ipratropium [place] 0.5 mg 01/22/24 13:00 01/28/24 17:55 Ipratropium 0.2 Mg/Ml Neb INH 0.5 mg RTQ6H DARCIE Administration Lidocaine 1 patch 01/22/24 09:30 01/28/24 08:56 Lidocaine Patch 5% TOP 1 patch DAILY DARCIE Administration Loratadine 10 mg 01/22/24 09:00 01/28/24 09:03 Loratadine 10 Mg Tablet PO 10 mg DAILY DARCIE Administration Magnesium Oxide 400 mg 01/28/24 20:16 01/28/24 21:11 Magnesium Oxide 400 Mg Tablet PO 01/30/24 08:01 400 mg DAILYWM DARCIE Administration Methadone HCl 2.5 mg 01/22/24 09:00 01/28/24 21:11 Methadone 5 Mg Tablet PO 2.5 mg BID DARCIE Administration Metoprolol Tartrate 25 mg 01/27/24 21:00 01/28/24 21:11 Metoprolol Tartrate 25 Mg Tablet PO 25 mg BID DARCIE Administration Metoprolol Tartrate 12.5 mg 01/27/24 10:13 01/28/24 21:11 Metoprolol Tartrate 25 Mg Tablet PO 12.5 mg BID DARCIE Administration Mirtazapine 15 mg 01/22/24 21:00 01/28/24 21:12 Mirtazapine 15 Mg Tablet PO 15 mg QPM DARCIE Administration Montelukast Sodium 10 mg 01/22/24 21:00 01/28/24 21:11 Montelukast 10 Mg Tablet PO 10 mg QPM DARCIE Administration Multivitamins/Minerals 1 tab 01/22/24 09:00 01/28/24 11:18 Multivitamin W/Minerals Tablet PO Not Given DAILY DARCIE Nystatin 5 ml 01/22/24 09:00 01/28/24 21:12 Nystatin 895864 Units/5 Ml Udc PO 5 ml QID DARCIE Administration Pantoprazole Sodium 40 mg 01/22/24 09:00 01/28/24 21:11 Pantoprazole 40 Mg Tablet PO 40 mg BID DARCIE Administration Patient Own Med ( 1 each 01/22/24 09:00 01/28/24 21:19 Theophylline PO Not Given Anhydrous [ BID DARCIE Theophylline Er] 300 Mg Tab.Er.12h) Polyethylene Glycol 17 gm 01/22/24 01:57 01/27/24 13:56 Polyethylene Glycol 3350 17 Gm Packet PO 17 gm DAILY PRN Administration Constipation Senna 8.6 mg 01/27/24 13:37 01/28/24 09:05 Senna 8.6 Mg Tablet PO 8.6 mg DAILY DARCIE Administration Sodium Chloride 10 ml 01/22/24 02:05 01/22/24 05:36 Sodium Chloride Flush 0.9% 10 Ml Syringe IVP 10 ml PRN PRN Administration NEEDED PER PROVIDER ORDERS Sodium Chloride 10 ml 01/22/24 09:00 01/28/24 17:42 Sodium Chloride Flush 0.9% 10 Ml Syringe IVP 10 ml 0100,0900,1700 DARCIE Administration Spironolactone 25 mg 01/28/24 08:00 01/28/24 11:20 Spironolactone 25 Mg Tablet PO Not Given DAILY DARCIE Sucralfate 1 gm 01/22/24 07:00 01/28/24 17:41 Sucralfate 1 Gm/10 Ml Udc PO 1 gm 0700,1100,1600,2200 DARCIE Administration Venlafaxine HCl 37.5 mg 01/25/24 09:00 01/28/24 09:03 Venlafaxine Er 37.5 Mg Capsule PO 37.5 mg DAILY DARCIE Administration Zinc Sulfate 220 mg 01/22/24 17:00 01/28/24 11:21 Zinc Sulfate 220 Mg Capsule PO Not Given DAILY DARCIE - Lab Result Fish Bone Diagrams: 01/28/24 07:30 01/28/24 20:58 - Additional Planning My Orders: My Active Orders 01/27/24 21:00 Metoprolol Tartrate [Lopressor] 25 mg PO BID 01/28/24 08:00 FUROSEMIDE INJ 40mg VIAL [LASIX INJ 40 mg VIAL] 40 mg IVP DAILY Spironolactone [Aldactone] 25 mg PO DAILY 01/28/24 20:16 Magnesium Oxide [Mag Ox] 400 mg PO DAILYWM Subjective - Subjective Patient Reports: Other (Alert. Denies chest pain and abdominal pain. Complains of mild/moderate dyspnea.) Objective Vital Signs: Vital Signs - 24 hr 01/27/24 01/28/24 01/28/24 23:37 00:40 01:31 Temperature 36.7 C Heart Rate Heart Rate [ 100 88 Brachial] Respiratory 20 20 Rate Blood Pressure Blood Pressure 182/114 H 167/100 H 174/113 H [Right Brachial artery] O2 Saturation 96 0 L If not protocol : Oxygen Flow, liters/minute 01/28/24 01/28/24 01/28/24 02:01 02:06 02:12 Temperature Heart Rate Heart Rate [ 86 87 Brachial] Respiratory Rate Blood Pressure 176/115 H Blood Pressure 184/112 H 182/114 H [Right Brachial artery] O2 Saturation If not protocol : Oxygen Flow, liters/minute 01/28/24 01/28/24 01/28/24 02:16 02:20 02:31 Temperature Heart Rate Heart Rate [ 84 83 Brachial] Respiratory Rate Blood Pressure 187/109 H Blood Pressure 182/113 H 173/109 H [Right Brachial artery] O2 Saturation If not protocol : Oxygen Flow, liters/minute 01/28/24 01/28/24 01/28/24 03:24 04:12 04:25 Temperature Heart Rate Heart Rate [ 92 Brachial] Respiratory Rate Blood Pressure 165/100 H Blood Pressure 189/119 H 150/100 H [Right Brachial artery] O2 Saturation If not protocol : Oxygen Flow, liters/minute 01/28/24 01/28/24 01/28/24 05:15 05:16 08:45 Temperature 36.7 C Heart Rate 94 Heart Rate [ 105 H Brachial] Respiratory 28 H 20 Rate Blood Pressure 145/90 H Blood Pressure 173/103 H [Right Brachial artery] O2 Saturation If not protocol : Oxygen Flow, liters/minute 01/28/24 01/28/24 01/28/24 09:00 09:05 13:30 Temperature Heart Rate 92 Heart Rate [ Brachial] Respiratory 18 Rate Blood Pressure 173/109 H 173/109 H Blood Pressure [Right Brachial artery] O2 Saturation If not protocol 1 1 : Oxygen Flow, liters/minute 01/28/24 01/28/24 01/28/24 16:12 17:55 20:04 Temperature 36.6 C Heart Rate 109 H 79 Heart Rate [ 106 H Brachial] Respiratory 16 20 19 Rate Blood Pressure Blood Pressure 138/90 H [Right Brachial artery] O2 Saturation 99 If not protocol 1 1 2 : Oxygen Flow, liters/minute Oxygen O2 Source [With Activity] Nasal cannula O2 Source [Without Activity] Nasal cannula O2 Source Nasal cannula Oxygen Flow Rate 2 I&O (Last 24 Hrs): Intake and Output Totals x24h 01/26/24 01/27/24 01/28/24 23:59 23:59 23:59 Intake Total 3320 3868.333 1075 Output Total 1300 1250 2950 Balance 2020 2618.333 -1875 General: Alert, No acute distress Neck: Supple, No JVD Neuro: Alert, Non Focal Cardiovascular: Other (Positive S1-S2 no extra heart sounds.) Respiratory: Other (Fair air exchange in all lung carney. No wheezing. Positive bibasilar crackles.) Abdomen: Normal bowel sounds, No tenderness Extremities: No cyanosis, No edema Skin: No rashes - Results Results: Laboratory Results WBC 14.7 x10^3/uL (4.8-10.8) H 01/28/24 07:30 RBC 3.77 10^6/uL (4.70-6.10) L 01/28/24 07:30 Hgb 9.9 g/dL (14.0-18.0) L 01/28/24 07:30 Hct 32.6 % (42.0-52.0) L 01/28/24 07:30 MCV 86.5 fL (80.0-94.0) 01/28/24 07:30 MCH 26.3 pg (27.0-31.0) L 01/28/24 07:30 MCHC 30.4 g/dL (32.0-36.0) L 01/28/24 07:30 RDW 15.6 % (12.0-15.0) H 01/28/24 07:30 Plt Count 336 10^3/uL (130-450) 01/28/24 07:30 MPV 9.7 fL (7.4-11.4) 01/28/24 07:30 Neut # (Auto) 12.0 10^3/uL (1.5-6.6) H 01/28/24 07:30 Lymph # (Auto) 1.0 10^3/uL (1.5-3.5) L 01/28/24 07:30 [place] # (Auto) 1.5 10^3/uL (0.0-1.0) H 01/28/24 07:30 Eos # (Auto) 0.0 10^3/uL (0.0-0.7) 01/28/24 07:30 Baso # (Auto) 0.0 10^3/uL (0.0-0.1) 01/28/24 07:30 Absolute Nucleated RBC 0.00 x10^3/uL 01/28/24 07:30 Nucleated RBC % 0.0 /100WBC 01/28/24 07:30 Bld Gas Analysis Time 0246 01/22/24 02:30 Sample Site RIGHT RADIAL 01/22/24 02:30 ABG pH 7.49 (7.35-7.45) H 01/22/24 02:30 ABG pCO2 26 mmHg (34-45) L 01/22/24 02:30 ABG pO2 89 mmHg (80-100) 01/22/24 02:30 ABG HCO3 19.1 mmol/L (22.0-26.0) L 01/22/24 02:30 ABG Total CO2 19.9 MMOL/L (21.0-29.0) L 01/22/24 02:30 ABG O2 Saturation 97 % (94-98) 01/22/24 02:30 ABG Base Excess -3.6 mmol/L (-2.0-3.0) L 01/22/24 02:30 Moi Test POSITIVE 01/22/24 02:30 O2 Delivery Device NASAL CANNULA 01/22/24 02:30 O2 Liters/Min 4.00 LPM 01/22/24 02:30 Sodium 142 mmol/L (135-145) 01/28/24 20:58 Potassium 3.3 mmol/L (3.5-4.5) L 01/28/24 20:58 Chloride 116 mmol/L (101-111) H 01/28/24 20:58 Carbon Dioxide 18 mmol/L (21-32) L 01/28/24 20:58 Anion Gap 8.0 (6-13) 01/28/24 20:58 BUN 51 mg/dL (6-20) H 01/28/24 20:58 Creatinine 1.6 mg/dL (0.6-1.3) H 01/28/24 20:58 Estimated GFR (MDRD) 44 (>89) L 01/28/24 20:58 Glucose 94 mg/dL (74-104) 01/28/24 20:58 POC Whole Bld Glucose 95 mg/dL (70 - 100) 01/28/24 20:40 Estimat Average Glucose 123 mg/dL (70-100) H 01/22/24 08:23 Hemoglobin A1c % 5.9 % (4.27-6.07) 01/22/24 08:23 Calcium 8.5 mg/dL (8.5-10.3) 01/28/24 20:58 Phosphorus 2.3 mg/dL (2.5-5.0) L 01/28/24 05:27 Magnesium 1.4 mg/dL (1.7-2.3) L 01/28/24 05:27 Iron 11 ug/dL (50-212) L 01/22/24 08:23 TIBC 165 ug/dL (250-450) L 01/22/24 08:23 % Saturation 7 % (20-50) L 01/22/24 08:23 Transferrin 118 mg/dL (203-362) L 01/22/24 08:23 Total Bilirubin 0.3 mg/dL (0.2-1.0) 01/22/24 00:00 AST 8 IU/L (10-42) L 01/22/24 00:00 ALT 6 IU/L (10-60) L 01/22/24 00:00 Alkaline Phosphatase 69 IU/L (42-121) 01/22/24 00:00 Troponin I High Sens 11.4 ng/L (2.3-19.7) 01/22/24 14:25 B-Natriuretic Peptide 81 pg/mL (5-100) 01/22/24 00:00 Total Protein 6.3 g/dL (6.4-8.9) L 01/22/24 00:00 Albumin 2.7 g/dL (3.2-5.5) L 01/24/24 05:14 Globulin 3.2 g/dL (2.1-4.2) 01/22/24 00:00 Albumin/Globulin Ratio 1.0 (1.0-2.2) 01/22/24 00:00 Lipase 22 U/L (11-82) 01/22/24 00:00 Nasal Adenovirus (PCR) NOT DETECTED 01/22/24 04:00 Nasal B. parapertussis DNA (PCR) NOT DETECTED 01/22/24 04:00 Nasal Coronavir 229E PCR NOT DETECTED 01/22/24 04:00 Nasal Coronavir HKU1 PCR NOT DETECTED 01/22/24 04:00 Nasal Coronavir NL63 PCR NOT DETECTED 01/22/24 04:00 Nasal Coronavir OC43 PCR NOT DETECTED 01/22/24 04:00 Nasal Enterovir/Rhinovir PCR NOT DETECTED 01/22/24 04:00 Nasal Influenza B PCR NOT DETECTED 01/22/24 04:00 Nasal Influenza A PCR NOT DETECTED 01/22/24 04:00 Nasal Parainfluen 1 PCR NOT DETECTED 01/22/24 04:00 Nasal Parainfluen 2 PCR NOT DETECTED 01/22/24 04:00 Nasal Parainfluen 3 PCR NOT DETECTED 01/22/24 04:00 Nasal Parainfluen 4 PCR NOT DETECTED 01/22/24 04:00 Nasal RSV (PCR) NOT DETECTED 01/22/24 04:00 Nasal B.pertussis DNA PCR NOT DETECTED 01/22/24 04:00 Nasal C.pneumoniae (PCR) NOT DETECTED 01/22/24 04:00 [place] Human Metapneumo PCR NOT DETECTED 01/22/24 04:00 Nasal M.pneumoniae (PCR) NOT DETECTED 01/22/24 04:00 Nasal SARS-CoV-2 (PCR) NOT DETECTED 01/22/24 04:00 Last Dose Date 01-22-24 01/24/24 05:14 Last Dose Time 1127 01/24/24 05:14 Random Vancomycin 25.5 ug/mL 01/24/24 05:14 - Procedures Procedures: Procedures ASSISTANCE WITH RESPIRATORY VENTILATION, <24 HRS, CPAP (12/19/23) INSERTION OF ENDOTRACHEAL AIRWAY INTO TRACHEA, VIA OPENING (12/19/23) INSERTION OF FEEDING DEVICE INTO STOMACH, VIA OPENING (12/19/23) INSERTION OF INFUSION DEV INTO SUP VENA CAVA, PERC APPROACH (12/19/23) INTRODUCTION OF NUTRITIONAL INTO UP GI, VIA OPENING (12/19/23) RESPIRATORY VENTILATION, GREATER THAN 96 CONSECUTIVE HOURS (12/19/23) TRANSFUSE NONAUT RED BLOOD CELLS IN PERIPH VEIN, PERC (12/19/23)
[2024-01-29] MEDS: POTASSIUM CHLORIDE 20 MEQ/15 ML UDC PO SCH (01:03)
[2024-01-29 05:59] LABS: BASOPHILS % (AUTO) 0.2 %; EOSINOPHILS # (AUTO) 0.1 10^3/uL (0.0-0.7); EOSINOPHILS % (AUTO) 0.7 %; HCT - HEMATOCRIT 29.9 % (42.0-52.0); HGB - HEMOGLOBIN 8.9 g/dL (14.0-18.0); LYMPHOCYTES # (AUTO) 0.8 10^3/uL (1.5-3.5); MEAN CORPUSCULAR HEMOGLOBIN 25.8 pg (27.0-31.0); MEAN CORPUSCULAR HGB CONC 29.8 g/dL (32.0-36.0); MEAN CORPUSCULAR VOLUME 86.7 fL (80.0-94.0); MEAN PLATELET VOLUME 10.4 fL (7.4-11.4); MONOCYTES # (AUTO) 1.4 10^3/uL (0.0-1.0); MONOCYTES % (AUTO) 9.4 %; NEUTROPHILS # (AUTO) 12.7 10^3/uL (1.5-6.6); NEUTROPHILS % (AUTO) 82.7 %; PLT - PLATELET COUNT 294 10^3/uL (130-450); RED BLOOD COUNT 3.45 10^6/uL (4.70-6.10); WHITE BLOOD COUNT 15.3 x10^3/uL (4.8-10.8)
[2024-01-29 06:21] LABS: CALCIUM 8.2 mg/dL (8.5-10.3); CREATININE 1.7 mg/dL (0.6-1.3); POTASSIUM 3.5 mmol/L (3.5-4.5)
[2024-01-29] MEDS ORDERED: predniSONE 20 MG TABLET PO SCH (08:00)
[2024-01-29] MEDS: NEUTRA-PHOS 250 MG TABLET PO SCH (08:29)
--- NOTE | 2024-01-29 09:06 | XRAY Report ---
PROCEDURE: Chest 1V INDICATIONS: SOB TECHNIQUE: One view of the chest was acquired. COMPARISON: 01/28/2024, 01/22/2024 and 01/20/2024. FINDINGS: Surgical changes and devices: Post surgical changes are noted in mid to lower cervical spine. Left-s ided PICC line tip is in SVC.. Lungs and pleura: Pulmonary vascular congestion is again seen. Subtle opacity is again noted in late ral right lung base. Subtle opacity is now also seen in right midlung field. Increased interstitial l luly markings are noted bilaterally. Mediastinum: Mediastinal contours appear normal. Heart size is normal. Bones and chest wall: No suspicious bony lesions. Overlying soft tissues appear unremarkable. IMPRESSION: Interval slight worsening of bilateral lung aeration with ill-defined opacity now seen in right mid a nd lower lung carney. Suggestion of mild pulmonary vascular congestion and mild pulmonary edema. Trac e right pleural effusion. No pneumothorax. Reviewed by: Reinier Gunn MD on 01/29/2024 9:05 AM PDT Approved by: Reinier Gunn MD on 01/29/2024 9:05 AM PDT Station ID: [id number]
[2024-01-29] MEDS: FUROSEMIDE 20 MG/2 ML VIAL IVP SCH (11:29)
--- NOTE | 2024-01-29 11:43 | PROVIDER PROGRESS NOTE ---
Assessment/Plan - Problem List (1) POP (acute kidney injury) Assessment/Plan: --Resolved. Creatinine at baseline. (2) Sinus tachycardia Assessment/Plan: --Most recent TTE showing LVEF 50-55%. --He does have some pulmonary edema, we are giving daily trials of IV lasix. (3) Acute respiratory failure with hypoxia and hypercapnia Assessment/Plan: --Baseline oxygen of 2L. He does have some mild pulmonary edema which we are t reating with IV lasix. --Continue nebulizer treatments for his COPD. (4) Osteomyelitis Qualifiers: Osteomyelitis type: subacute Osteomyelitis location: foot Laterality: right Qualified Code(s): M86.271 - Subacute osteomyelitis, right ankle and foot Assessment/Plan: --He has not been on Vancomycin for his osteomyelitis since being in the [facility] due to concern for nephrotoxicity. Tomorrow would be his last day of antibiotics. We will no initiate anymore antibiotics. (5) Steroid-induced diabetes mellitus Qualifiers: Encounter type: initial encounter Qualified Code(s): E09.9 - Drug or chemical induced diabetes mellitus without complications; T38.0X5A - Adverse effect of glucocorticoids and synthetic analogues, initial encounter Assessment/Plan: --Continue SSI. - Current Meds Current Meds: Current Medications Generic Name Dose Route Start Last Admin Trade Name Freq PRN Reason Stop Dose Admin Acetaminophen 650 mg 01/22/24 01:57 01/28/24 22:45 Acetaminophen 325 Mg Tablet PO 650 mg Q4HR PRN Administration Pain or Fever > 38C (100.4F) Albuterol 2.5 mg 01/22/24 02:30 01/28/24 20:04 Albuterol Neb 2.5 Mg/3 Ml INH 2.5 mg RTQ4H PRN Administration Shortness of Air/Wheezing Albuterol/Ipratropium 3 ml 01/22/24 01:57 01/26/24 20:29 Ipratropium/Albuterol 3 Ml Neb INH 3 ml Q4H PRN Administration Asthma Benzonatate 100 mg 01/22/24 01:57 01/28/24 21:12 Benzonatate 100 Mg Capsule PO 100 mg TID PRN Administration Cough Budesonide 0.5 mg 01/22/24 07:00 01/29/24 06:01 Budesonide 0.5 Mg/2 Ml Neb INH 0.5 mg RTBID DARCIE Administration Calcium Carbonate/Glycine 500 mg 01/22/24 09:00 01/29/24 08:28 Calcium Carbonate Chew 500 Mg Tablet PO 500 mg BID DARCIE Administration Ferrous Sulfate 325 mg 01/22/24 09:00 01/29/24 08:30 Ferrous Sulfate 325 Mg Tablet PO 325 mg DAILY DARCIE Administration Fluticasone Propionate 1 sprays 01/22/24 09:00 01/29/24 08:37 Fluticasone Nasal [place] MONICA 1 spray BID DARCIE Administration Furosemide 20 mg 01/29/24 11:00 01/29/24 11:29 Furosemide 20 Mg/2 Ml Vial IVP 20 mg DAILY DARCIE Administration Guaifenesin 400 mg 01/22/24 02:31 01/25/24 16:10 Guaifenesin 100 Mg/5 Ml Udc PO 400 mg Q6H PRN Administration Cough Heparin Sodium (Porcine) 5,000 unit 01/22/24 09:00 01/29/24 08:39 Heparin 5,000 Unit/Ml Vial SUBQ 5,000 unit BID DARCIE Administration Hydralazine HCl 10 mg 01/28/24 03:41 01/28/24 04:12 Hydralazine Inj 20 Mg/Ml Vial IVP 10 mg Q6H PRN Administration other Insulin Human Lispro 1 - 5 unit 01/22/24 08:00 01/29/24 08:28 Insulin Lispro 300 Unit/3 Ml Pen SUBQ Not Given 0800,1200,1700,2100 [facility] Protocol Ipratropium [place] 0.5 mg 01/22/24 13:00 01/29/24 05:55 Ipratropium 0.2 Mg/Ml Neb INH 0.5 mg RTQ6H DARCIE Administration Lidocaine 1 patch 01/22/24 09:30 01/29/24 08:41 Lidocaine Patch 5% TOP Not Given DAILY [facility] Loratadine 10 mg 01/22/24 09:00 01/29/24 08:30 Loratadine 10 Mg Tablet PO 10 mg DAILY DARCIE Administration Magnesium Oxide 400 mg 01/28/24 20:16 01/29/24 08:30 Magnesium Oxide 400 Mg Tablet PO 01/30/24 08:01 400 mg DAILYWM DARCIE Administration Methadone HCl 2.5 mg 01/22/24 09:00 01/29/24 08:29 Methadone 5 Mg Tablet PO 2.5 mg BID DARCIE Administration Metoprolol Tartrate 25 mg 01/27/24 21:00 01/29/24 08:29 Metoprolol Tartrate 25 Mg Tablet PO 25 mg BID DARCIE Administration Metoprolol Tartrate 12.5 mg 01/27/24 10:13 01/29/24 08:30 Metoprolol Tartrate 25 Mg Tablet PO 12.5 mg BID DARCIE Administration Mirtazapine 15 mg 01/22/24 21:00 01/28/24 21:12 Mirtazapine 15 Mg Tablet PO 15 mg QPM DARCIE Administration Montelukast Sodium 10 mg 01/22/24 21:00 01/28/24 21:11 Montelukast 10 Mg Tablet PO 10 mg QPM DARCIE Administration Multivitamins/Minerals 1 tab 01/22/24 09:00 01/29/24 08:29 Multivitamin W/Minerals Tablet PO 1 tab DAILY DARCIE Administration Nystatin 5 ml 01/22/24 09:00 01/29/24 08:41 Nystatin 931201 Units/5 Ml Udc PO 5 ml QID DARCIE Administration Pantoprazole Sodium 40 mg 01/22/24 09:00 01/29/24 08:29 Pantoprazole 40 Mg Tablet PO 40 mg BID DARCIE Administration Patient Own Med ( 1 each 01/22/24 09:00 01/29/24 08:41 Theophylline PO Not Given Anhydrous [ BID DARCIE Theophylline Er] 300 Mg Tab.Er.12h) Polyethylene Glycol 17 gm 01/22/24 01:57 01/27/24 13:56 Polyethylene Glycol 3350 17 Gm Packet PO 17 gm DAILY PRN Administration Constipation Potassium Chloride 40 meq 01/29/24 00:00 01/29/24 06:24 Potassium Chloride 20 Meq/15 Ml Udc PO 01/29/24 12:01 40 meq Q6H DARCIE Administration Senna 8.6 mg 01/27/24 13:37 01/29/24 08:29 Senna 8.6 Mg Tablet PO 8.6 mg DAILY DARCIE Administration Sodium Chloride 10 ml 01/22/24 02:05 01/22/24 05:36 Sodium Chloride Flush 0.9% 10 Ml Syringe IVP 10 ml PRN PRN Administration NEEDED PER PROVIDER ORDERS Sodium Chloride 10 ml 01/22/24 09:00 01/29/24 08:41 Sodium Chloride Flush 0.9% 10 Ml Syringe IVP 10 ml 0100,0900,1700 DARCIE Administration Sodium Phosphate 250 mg 01/29/24 08:00 01/29/24 08:29 Neutra-Phos 250 Mg Tablet PO 01/29/24 17:01 250 mg TIDWM DARCIE Administration Spironolactone 25 mg 01/28/24 08:00 01/29/24 08:29 Spironolactone 25 Mg Tablet PO 25 mg DAILY DARCIE Administration Sucralfate 1 gm 01/22/24 07:00 01/29/24 11:29 Sucralfate 1 Gm/10 Ml Udc PO 1 gm 0700,1100,1600,2200 DARCIE Administration Venlafaxine HCl 37.5 mg 01/25/24 09:00 01/29/24 08:29 Venlafaxine Er 37.5 Mg Capsule PO 37.5 mg DAILY DARCIE Administration Zinc Sulfate 220 mg 01/22/24 17:00 01/29/24 08:29 Zinc Sulfate 220 Mg Capsule PO 220 mg DAILY DARCIE Administration - Lab Result Fish Bone Diagrams: 01/29/24 04:41 01/29/24 04:41 - Other Other Results/Comments: All other medical problems are stable. He does have severe protein calorie malnutrition. Dispo: Pending placement to [facility] when medically stable. We will continue to diurese him and closely monitor renal function. - Additional Planning My Orders: My Active Orders 01/29/24 11:00 FUROSEMIDE INJ 20mg VIAL [LASIX INJ 20mg VIAL] 20 mg IVP DAILY 01/30/24 05:00 BMP - BASIC METABOLIC PANEL [CHEM] DAILYLAB CBC [CBC - COMP BLD CT W/AUTO DIFF] [HEME] DAILYLAB 01/31/24 05:00 BMP - BASIC METABOLIC PANEL [CHEM] DAILYLAB CBC [CBC - COMP BLD CT W/AUTO DIFF] [HEME] DAILYLAB 02/01/24 05:00 BMP - BASIC METABOLIC PANEL [CHEM] DAILYLAB CBC [CBC - COMP BLD CT W/AUTO DIFF] [HEME] DAILYLAB 02/02/24 05:00 BMP - BASIC METABOLIC PANEL [CHEM] DAILYLAB CBC [CBC - COMP BLD CT W/AUTO DIFF] [HEME] DAILYLAB Subjective - Subjective Patient Reports: Shortness of Breath Objective Vital Signs: Vital Signs - 24 hr 01/28/24 01/28/24 01/28/24 13:30 16:12 17:55 Temperature 36.6 C Heart Rate 92 109 H Heart Rate [ 106 H Brachial] Respiratory 18 16 20 Rate Blood Pressure 138/90 H [Right Brachial artery] O2 Saturation 99 If not protocol 1 1 1 : Oxygen Flow, liters/minute 01/28/24 01/29/24 01/29/24 20:04 01:28 05:56 Temperature 37.1 C Heart Rate 79 78 Heart Rate [ 98 Brachial] Respiratory 19 19 17 Rate Blood Pressure 154/89 H [Right Brachial artery] O2 Saturation 97 If not protocol 2 1.5 2 : Oxygen Flow, liters/minute 01/29/24 01/29/24 05:58 07:31 Temperature 36.7 C Heart Rate Heart Rate [ 116 H Brachial] Respiratory 22 Rate Blood Pressure 157/96 H [Right Brachial artery] O2 Saturation 96 If not protocol 2 1.5 : Oxygen Flow, liters/minute Oxygen O2 Source [With Activity] Nasal cannula O2 Source [Without Activity] Nasal cannula O2 Source Nasal cannula Oxygen Flow Rate 2 I&O (Last 24 Hrs): Intake and Output Totals x24h 01/27/24 01/28/24 01/29/24 23:59 23:59 23:59 Intake Total 3868.333 1075 390 Output Total 1250 2950 1550 Balance 2618.333 -1875 -1160 General: Alert, Mild distress Cardiovascular: Regular rate, Normal S1, Normal S2 Respiratory: Chest non-tender Abdomen: Normal bowel sounds, Soft - Results Results: Laboratory Results WBC 15.3 x10^3/uL (4.8-10.8) H 01/29/24 04:41 RBC 3.45 10^6/uL (4.70-6.10) L 01/29/24 04:41 Hgb 8.9 g/dL (14.0-18.0) L 01/29/24 04:41 Hct 29.9 % (42.0-52.0) L 01/29/24 04:41 MCV 86.7 fL (80.0-94.0) 01/29/24 04:41 MCH 25.8 pg (27.0-31.0) L 01/29/24 04:41 MCHC 29.8 g/dL (32.0-36.0) L 01/29/24 04:41 RDW 16.0 % (12.0-15.0) H 01/29/24 04:41 Plt Count 294 10^3/uL (130-450) 01/29/24 04:41 MPV 10.4 fL (7.4-11.4) 01/29/24 04:41 Neut # (Auto) 12.7 10^3/uL (1.5-6.6) H 01/29/24 04:41 Lymph # (Auto) 0.8 10^3/uL (1.5-3.5) L 01/29/24 04:41 [place]an # (Auto) 1.4 10^3/uL (0.0-1.0) H 01/29/24 04:41 Eos # (Auto) 0.1 10^3/uL (0.0-0.7) 01/29/24 04:41 Baso # (Auto) 0.0 10^3/uL (0.0-0.1) 01/29/24 04:41 Absolute Nucleated RBC 0.00 x10^3/uL 01/29/24 04:41 Nucleated RBC % 0.0 /100WBC 01/29/24 04:41 Bld Gas Analysis Time 0246 01/22/24 02:30 Sample Site RIGHT RADIAL 01/22/24 02:30 ABG pH 7.49 (7.35-7.45) H 01/22/24 02:30 ABG pCO2 26 mmHg (34-45) L 01/22/24 02:30 ABG pO2 89 mmHg (80-100) 01/22/24 02:30 ABG HCO3 19.1 mmol/L (22.0-26.0) L 01/22/24 02:30 ABG Total CO2 19.9 MMOL/L (21.0-29.0) L 01/22/24 02:30 ABG O2 Saturation 97 % (94-98) 01/22/24 02:30 ABG Base Excess -3.6 mmol/L (-2.0-3.0) L 01/22/24 02:30 Moi Test POSITIVE 01/22/24 02:30 O2 Delivery Device NASAL CANNULA 01/22/24 02:30 O2 Liters/Min 4.00 LPM 01/22/24 02:30 Sodium 143 mmol/L (135-145) 01/29/24 04:41 Potassium 3.5 mmol/L (3.5-4.5) 01/29/24 04:41 Chloride 117 mmol/L (101-111) H 01/29/24 04:41 Carbon Dioxide 20 mmol/L (21-32) L 01/29/24 04:41 Anion Gap 6.0 (6-13) 01/29/24 04:41 BUN 49 mg/dL (6-20) H 01/29/24 04:41 Creatinine 1.7 mg/dL (0.6-1.3) H 01/29/24 04:41 Estimated GFR (MDRD) 41 (>89) L 01/29/24 04:41 Glucose 102 mg/dL (74-104) 01/29/24 04:41 POC Whole Bld Glucose 100 mg/dL (70 - 100) 01/29/24 11:13 Estimat Average Glucose 123 mg/dL (70-100) H 01/22/24 08:23 Hemoglobin A1c % 5.9 % (4.27-6.07) 01/22/24 08:23 Calcium 8.2 mg/dL (8.5-10.3) L 01/29/24 04:41 Phosphorus 2.3 mg/dL (2.5-5.0) L 01/28/24 05:27 Magnesium 1.4 mg/dL (1.7-2.3) L 01/28/24 05:27 Iron 11 ug/dL (50-212) L 01/22/24 08:23 TIBC 165 ug/dL (250-450) L 01/22/24 08:23 % Saturation 7 % (20-50) L 01/22/24 08:23 Transferrin 118 mg/dL (203-362) L 01/22/24 08:23 Total Bilirubin 0.3 mg/dL (0.2-1.0) 01/22/24 00:00 AST 8 IU/L (10-42) L 01/22/24 00:00 ALT 6 IU/L (10-60) L 01/22/24 00:00 Alkaline Phosphatase 69 IU/L (42-121) 01/22/24 00:00 Troponin I High Sens 11.4 ng/L (2.3-19.7) 01/22/24 14:25 B-Natriuretic Peptide 81 pg/mL (5-100) 01/22/24 00:00 Total Protein 6.3 g/dL (6.4-8.9) L 01/22/24 00:00 Albumin 2.7 g/dL (3.2-5.5) L 01/24/24 05:14 Globulin 3.2 g/dL (2.1-4.2) 01/22/24 00:00 Albumin/Globulin Ratio 1.0 (1.0-2.2) 01/22/24 00:00 Lipase 22 U/L (11-82) 01/22/24 00:00 Nasal Adenovirus (PCR) NOT DETECTED 01/22/24 04:00 Nasal B. parapertussis DNA (PCR) NOT DETECTED 01/22/24 04:00 Nasal Coronavir 229E PCR NOT DETECTED 01/22/24 04:00 Nasal Coronavir HKU1 PCR NOT DETECTED 01/22/24 04:00 Nasal Coronavir NL63 PCR NOT DETECTED 01/22/24 04:00 Nasal Coronavir OC43 PCR NOT DETECTED 01/22/24 04:00 Nasal Enterovir/Rhinovir PCR NOT DETECTED 01/22/24 04:00 Nasal Influenza B PCR NOT DETECTED 01/22/24 04:00 Nasal Influenza A PCR NOT DETECTED 01/22/24 04:00 Nasal Parainfluen 1 PCR NOT DETECTED 01/22/24 04:00 Nasal Parainfluen 2 PCR NOT DETECTED 01/22/24 04:00 Nasal Parainfluen 3 PCR NOT DETECTED 01/22/24 04:00 Nasal Parainfluen 4 PCR NOT DETECTED 01/22/24 04:00 Nasal RSV (PCR) NOT DETECTED 01/22/24 04:00 Nasal B.pertussis DNA PCR NOT DETECTED 01/22/24 04:00 Nasal C.pneumoniae (PCR) NOT DETECTED 01/22/24 04:00 Monica Human Metapneumo PCR NOT DETECTED 01/22/24 04:00 Nasal M.pneumoniae (PCR) NOT DETECTED 01/22/24 04:00 Nasal SARS-CoV-2 (PCR) NOT DETECTED 01/22/24 04:00 Last Dose Date 01-22-24 01/24/24 05:14 Last Dose Time 1127 01/24/24 05:14 Random Vancomycin 25.5 ug/mL 01/24/24 05:14 - Procedures Procedures: Procedures ASSISTANCE WITH RESPIRATORY VENTILATION, <24 HRS, CPAP (12/19/23) INSERTION OF ENDOTRACHEAL AIRWAY INTO TRACHEA, VIA OPENING (12/19/23) INSERTION OF FEEDING DEVICE INTO STOMACH, VIA OPENING (12/19/23) INSERTION OF INFUSION DEV INTO SUP VENA CAVA, PERC APPROACH (12/19/23) INTRODUCTION OF NUTRITIONAL INTO UP GI, VIA OPENING (12/19/23) RESPIRATORY VENTILATION, GREATER THAN 96 CONSECUTIVE HOURS (12/19/23) TRANSFUSE NONAUT RED BLOOD CELLS IN PERIPH VEIN, PERC (12/19/23)
[2024-01-29] MEDS ORDERED: FUROSEMIDE 40 MG/4 ML VIAL IVP SCH ×2 (12:00)
[2024-01-29] MEDS: METOPROLOL TARTRATE 25 MG TABLET PO SCH (21:30)
[2024-01-30 05:50] LABS: BASOPHILS % (AUTO) 0.1 %; EOSINOPHILS # (AUTO) 0.4 10^3/uL (0.0-0.7); EOSINOPHILS % (AUTO) 2.7 %; HCT - HEMATOCRIT 30.2 % (42.0-52.0); LYMPHOCYTES # (AUTO) 0.8 10^3/uL (1.5-3.5); LYMPHOCYTES % (AUTO) 5.7 %; MEAN CORPUSCULAR HGB CONC 29.8 g/dL (32.0-36.0); MEAN CORPUSCULAR VOLUME 87.3 fL (80.0-94.0); MEAN PLATELET VOLUME 10.2 fL (7.4-11.4); MONOCYTES # (AUTO) 1.1 10^3/uL (0.0-1.0); MONOCYTES % (AUTO) 8.1 %; NEUTROPHILS # (AUTO) 11.1 10^3/uL (1.5-6.6); NEUTROPHILS % (AUTO) 81.7 %; PLT - PLATELET COUNT 261 10^3/uL (130-450); RED BLOOD COUNT 3.46 10^6/uL (4.70-6.10); RED CELL DISTRIBUTION WIDTH 16.1 % (12.0-15.0); WHITE BLOOD COUNT 13.6 x10^3/uL (4.8-10.8)
[2024-01-30 06:11] LABS: CALCIUM 8.1 mg/dL (8.5-10.3); CREATININE 1.6 mg/dL (0.6-1.3); POTASSIUM 3.4 mmol/L (3.5-4.5)
[2024-01-30 07:49] VITALS: BP 150/90; O2SAT 92
[2024-01-30] MEDS: POTASSIUM CHLORIDE 20 MEQ TABLET PO SCH (07:57)
--- NOTE | 2024-01-30 10:36 | Discharge Plan ---
"Discharge Plan for SNF / COURT[facility] - Discharge Plan And Transition Orders Problem Reviewed?: Yes Disposition: 03 SNF DC/Xfer Condition: Good Allergies and Adverse Reactions: Allergies Allergy/AdvReac Type Severity Reaction Status Date / Time aspirin Allergy Unknown Verified 01/22/24 01:33 cyclobenzaprine AdvReac Hallucinati Verified 01/22/24 01:33 [From Flexeril] ons ibuprofen AdvReac Respiratory Verified 01/22/24 01:33 pseudoephedrine AdvReac Unknown Verified 01/22/24 01:33 [From Entex T] - SNF / [facility] Transition Orders Admit to (Facility): [facility] Medicare Certification Statement: I certify [facility] is medically necessary on a continuing basis for any of the conditions for which she/he is receiving care during hospitalization. Notify PCP of admission and forward orders to primary provider for signature. Weight on admission and: Daily Call PCP immediately if weight increases by: 5 kg Other Notification Orders: Call PCP immediately if patient develops dyspnea, chest pain/tightness or edema. House Bowel Program: Yes Additional Bowel Program Orders: If no BM after 2 days, nurse may give M.O.M. 30ml PO PRN and/or ducolax Supp 1 [place] and/or [place] 250mg P.O., and/or senna 1-2 tabs PO. On day 3 nurse may give repeat above order until residents constipation is resolved. Annual Influenza Vaccine (between Jun 29 and January 26): Yes Two-step PPD per [facility] [phone] or approved exception documents: Yes Treatments & Other Orders: Please give Lasix only on Sunday, Sunday, Sunday along with potassium supplements. He is at high risk for dehydration due to poor oral intake. Daily weights. Oxygen Orders: Maintain oxygen between 88-93% using supplemental oxygen. Medication Orders: PLEASE REFER TO THE DISCHARGE MEDICATION LIST. Insulin Orders?: No - Medications New Prescriptions: Spironolactone [Aldactone] 25 mg PO DAILY #30 tab Furosemide [Lasix] 40 mg PO DAILY #30 tablet - Diet Type: Geriatric Texture: Regular Liquids: Thin May have monthly special meal: Yes - Therapies | Activity Therapy: Evaluation | Treat if indicated: PT, OT Rehabilitation Potential: Maximize functional status Activity: Activity as Tolerated Weight Bearing: Full Weight Follow Up: Follow up with PCP in 3-5 days."
--- NOTE | 2024-01-30 10:43 | DISCHARGE SUMMARY ---
"Discharge Summary Admit Date: 02/22/24 Discharge Date: 01/30/24 Discharging Provider: Erinn Parra Code Status: Attempt Resuscitation Condition at Discharge: Good Discharge Disposition: [facility] DC/Xfer - DIAGNOSES Discharge Diagnoses with Status of Each Condition: (1) POP (acute kidney injury) Assessment/Plan: --Resolved. Creatinine at baseline. (2) Sinus tachycardia Assessment/Plan: --Most recent TTE showing LVEF 50-55%. (3) Acute respiratory failure with hypoxia and hypercapnia Assessment/Plan: --Baseline oxygen of 2L. He does have some mild pulmonary edema which we are treating with IV lasix. --Continue nebulizer treatments for his COPD. (4) Osteomyelitis Qualifiers: Osteomyelitis type: subacute Osteomyelitis location: foot Laterality: right Qualified Code(s): M86.271 - Subacute osteomyelitis, right ankle and foot Assessment/Plan: --He has not been on Vancomycin for his osteomyelitis since being in the hospital due to concern for nephrotoxicity. We will no initiate anymore antibiotics. Course is complete. (5) Steroid-induced diabetes mellitus Qualifiers: Encounter type: initial encounter Qualified Code(s): E09.9 - Drug or chemical induced diabetes mellitus without complications; T38.0X5A - Adverse effect of glucocorticoids and synthetic analogues, initial encounter Assessment/Plan: --Continue SSI. --No home diabetic medications. - HPI History of Present Illness: H&P was conducted via video remotely, using Access Cart. Patient is in [place]. Physician is in [place]. No one is at bedside. 58 yo M with PMH of R Foot Osteomyelitis on IV Vanco/Cefepime, HFrEF, CAD, COPD/Asthma on home O2 2L NC, EN, HTN, chronic LBP, NICOLE, DM type 2, FTT presented from [facility] to the ER with c/o 1 day h/o Shortness of breath. Pt was recently hospitalized from 01/17/24-01/18/24 for Hypokalemia and has had numerous visits to the ER. Pt woke up in the middle of the night with c/o Shortness of breath, chest tightness. +palpitations. He complains that he has n ot received many nebs at the [facility]. +chronic dry cough. No sputum. No F/C. No abdo pain/N/V. Pt says that he has been eating and drinking pretty well, but that he coughs whenever he eats or drinks. +trouble swallowing. +weakness, generalized. No change in BMs or urination. In the ER, HR 146, Hgb 9.1, MCH 26.5, CR 2.3, Glc 234 CXR: NAD Pt was given IVF, Metoprolol 5 mg IV x 1 in the ER. - CONSULTS | PROCEDURES Procedures: PICC line removed on 01/30/24. - HOSPITAL COURSE Hospital Course: Patient is a 58-year-old male who presented to the ED due to complaints of shortness of breath from his [facility] facility. Upon admission he was noted to be tachycardic and given a diagnosis of a COPD exacerbation. Patient was on his baseline 2 L of oxygen. He was started on nebulizer treatments. A chest x-ray was performed which was unremarkable. His respiratory status improved with breathing treatments. However during his hospitalization patient developed an POP. His Lasix was held and he was started on IV fluids. Patient responded well to IV fluids and his creatinine normalized to 1.6 on day of discharge. He did not want to return to [facility] and was placed at [facility] in [place]. On discharge, his Lasix dose was reduced to 40 mg on Sunday, Sunday, Sunday. He was also started on potassium supplementation for those days. His PICC line was removed as he completed his IV antibiotic regimen for his left lower extremity osteomyelitis. - ALLERGIES Allergies/Adverse Reactions: Allergies Allergy/AdvReac Type Severity Reaction Status Date / Time aspirin Allergy Unknown Verified 01/22/24 01:33 cyclobenzaprine AdvReac Hallucinati Verified 01/22/24 01:33 [From Flexeril] ons ibuprofen AdvReac Respiratory Verified 01/22/24 01:33 pseudoephedrine AdvReac Unknown Verified 01/22/24 01:33 [From Entex T] - MEDICATIONS Home Medications: Ambulatory Orders Medication Instructions Recorded Confirmed Albuterol Sulfate [Proair Hfa 2 puffs INH Q4H PRN 03/30/18 01/22/24 Inhaler] Ipratropium/Albuterol [Duoneb] 3 ml PO Q4H PRN 12/20/23 01/22/24 Multivitamin with Minerals 1 tab PO DAILY 12/20/23 01/22/24 [Multivitamins with Minerals] guaiFENesin [Chest Congestion 400 mg PO Q6H PRN 12/20/23 01/22/24 Relief] Acetaminophen [Tylenol] 650 mg PO Q4HR PRN tab 01/10/24 01/22/24 Beclomethasone Dipropionate [Qvar 1 puffs INH BID #0 01/10/24 01/22/24 Redihaler (80 mcg)] Benzonatate [Tessalon] 100 mg PO TID PRN cap 01/10/24 01/22/24 Budesonide/Formoterol Fumarate 2 puffs INH BID #0 01/10/24 01/22/24 [Symbicort 160-4.5 Mcg Inhaler] Calcium Carbonate [Tums (Calcium 500 mg PO BID tab 01/10/24 01/22/24 Carbonate 500mg)] Ferrous Sulfate [Feosol] 325 mg PO DAILY #0 01/10/24 01/22/24 Fexofenadine HCl 180 mg PO DAILY #0 01/10/24 01/22/24 Fluticasone [Flonase] 1 spray MONICA BID #0 01/10/24 01/22/24 Ipratropium [place] 2 spray MONICA TID #0 01/10/24 01/22/24 Ipratropium/Albuterol [Combivent 1 puffs INH QID #0 01/10/24 01/22/24 Respimat] Methadone [Methadone Hcl] 2.5 mg PO BID #7 tab 01/10/24 01/22/24 Mirtazapine [Remeron] 15 mg PO QPM tab 01/10/24 01/22/24 Montelukast [Singulair] 10 mg PO QPM #0 01/10/24 01/22/24 Nystatin [Mycostatin] 5 ml PO QID #0 01/10/24 01/22/24 Pantoprazole [Protonix] 40 mg PO BID #0 01/10/24 01/22/24 Sucralfate [Carafate] 1 gm PO 0700,1100,1600,2200 ea 01/10/24 01/22/24 Theophylline Anhydrous 300 mg PO BID #0 01/10/24 01/22/24 [Theophylline ER] Umeclidinium [place] [Incruse 1 inh INH DAILY #0 01/10/24 01/22/24 Ellipta] Bisacodyl Supp [Dulcolax Supp] 1 appful [place] PRN PRN 01/13/24 01/22/24 Metoprolol Tartrate [Lopressor] 12.5 mg PO DAILY 01/13/24 01/22/24 Mineral Oil [Mineral Oil Enema] 1 appful TN PRN PRN 01/13/24 01/22/24 polyethylene glycoL 3350 [Miralax] 1 packet PO PRN PRN 01/13/24 01/22/24 Naloxone HCl Nasal [Narcan Nasal] 1 spray IN DAILY PRN 01/15/24 01/22/24 Triamcinolone 0.1% Oint 1 applic TOP BID PRN #1 each 01/18/24 01/22/24 Saccharomyces Boulardii 1 cap PO DAILY 01/22/24 01/22/24 [Resistance Formula Probiotic] Senna [Senokot] 19.2 mg PO DAILY PRN 01/22/24 01/22/24 Furosemide [Lasix] 40 mg PO DAILY #30 tablet 01/30/24 Potassium Chloride [Micro-K] 40 meq PO DAILY #30 cap 01/30/24 01/22/24 Spironolactone [Aldactone] 25 mg PO DAILY #30 tab 01/30/24 - PHYSICAL EXAM AT DISCHARGE General Appearance: positive: No acute distress, Alert Respiratory: positive: Chest non-tender, Breath sounds nml. negative: Wheezes Cardiovascular: positive: No murmur, No gallop, Tachycardia Abdomen: positive: No organomegaly, Nml bowel sounds, No distention. negative: Tenderness Extremities: positive: No pedal edema - LABS Result Diagrams: 01/30/24 05:37 01/30/24 05:37 - FOLLOW UP Follow Up: Follow up with PCP in 3-5 days. His lasix dose was decreased to three times weekly. - TIME SPENT Time Spent in Discharge (Minutes): 35"
== END 2024-01-30 12:15 | DRG 682 ==
LOC: EDBD → EDUNIT# → ED 23:28 → MS2 01-22 02:05
PROVIDERS: ADMIT Internal Medicine; ATTEND Family Medicine
DX: N17.9 Acute kidney failure, unspecified (principal); I50.22 Chronic systolic (congestive) heart failure; J44.9 Chronic obstructive pulmonary disease, unspecified; J96.01 Acute respiratory failure with hypoxia; J96.02 Acute respiratory failure with hypercapnia; J44.1 Chronic obstructive pulmonary disease with (acute) exacerbation; M86.271 Subacute osteomyelitis, right ankle and foot; Z68.1 Body mass index [BMI] 19.9 or less, adult; E11.65 Type 2 diabetes mellitus with hyperglycemia; M86.8X7 Other osteomyelitis, ankle and foot; R00.0 Tachycardia, unspecified; T38.0X5A Adverse effect of glucocorticoids and synthetic analogues, initial encounter; I25.10 Atherosclerotic heart disease of native coronary artery without angina pectoris; G47.33 Obstructive sleep apnea (adult) (pediatric); I11.0 Hypertensive heart disease with heart failure; R62.7 Adult failure to thrive; G89.29 Other chronic pain; M54.50 Low back pain, unspecified; K21.9 Gastro-esophageal reflux disease without esophagitis; R13.10 Dysphagia, unspecified; E09.65 Drug or chemical induced diabetes mellitus with hyperglycemia; D50.9 Iron deficiency anemia, unspecified; F41.9 Anxiety disorder, unspecified; I08.0 Rheumatic disorders of both mitral and aortic valves; Z79.899 Other long term (current) drug therapy; Z82.5 Family history of asthma and other chronic lower respiratory diseases; Z89.429 Acquired absence of other toe(s), unspecified side
CPT/HCPCS: 36415; 36600; 71045; 76770; 80048; 80053; 80069; 80202; 82803; 83036; 83540; 83690; 83735; 83880; 84100; 84466; 84484; 85025; 87633; 92610; 93005; 93307; 94640; 96374; 97162; 97166; 97530; 97535; 99285; A9270; J3370; J7512; J7626; Q0162

== ENCOUNTER 2025-07-17 03:42 | Inpatient (IN) ==
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
--- OUTSIDE RECORDS SUMMARY | 2025-07-17 04:52 | EXTERNAL MEDICAL SUMMARY RPT | Continuity of Care Document ---
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 Engineer Name Role Phone Unavailable Unavailable Unavailable Jam Linda Unavailable Unavailable Medications date description facility 2025-07-16 00:00 Azithromycin [facility] 2025-07-16 00:00 Amoxicillin-Pot Clavulanate [facility] Problems date description facility 2025-07-16 00:00 Pneumonia [facility] Procedures date description facility 2025-07-15 00:00 X-ray of chest, single view [facility] Results/Labs test date facility value unit notes Result panel 1 Specimen collection (procedure) (no date) [facility] (missing) (missing) (missing) Result panel 2 Specimen collection (procedure) (no date) [facility] (missing) (missing) (missing) Result panel 3 Specimen collection (procedure) (no date) [facility] (missing) (missing) (missing) Result panel 4 Specimen collection (procedure) (no date) [facility] (missing) (missing) (missing) Result panel 5 Specimen collection (procedure) (no date) [facility] (missing) (missing) (missing) Result panel 6 Specimen collection (procedure) (no date) [facility] (missing) (missing) (missing) Result panel 7 Specimen collection (procedure) (no date) [facility] (missing) (missing) (missing) Result panel 8 Specimen collection (procedure) (no date) [facility] (missing) (missing) (missing) Result panel 9 Specimen collection (procedure) (no date) [facility] (missing) (missing) (missing) Result panel 10 Specimen collection (procedure) (no date) [facility] (missing) (missing) (missing) Result panel 11 Specimen collection (procedure) (no date) [facility] (missing) (missing) (missing) Result panel 12 Specimen collection (procedure) (no date) [facility] (missing) (missing) (missing) Result panel 13 Specimen collection (procedure) (no date) [facility] (missing) (missing) (missing) Result panel 14 Specimen collection (procedure) (no date) [facility] (missing) (missing) (missing) Result panel 15 Specimen collection (procedure) (no date) [facility] (missing) (missing) (missing) Result panel 16 Specimen collection (procedure) (no date) [facility] (missing) (missing) (missing) Result panel 17 Specimen collection (procedure) (no date) [facility] (missing) (missing) (missing) Result panel 18 Specimen collection (procedure) (no date) [facility] (missing) (missing) (missing) Result panel 19 Specimen collection (procedure) (no date) [facility] (missing) (missing) (missing) Result panel 20 Specimen collection (procedure) (no date) [facility] (missing) (missing) (missing) Result panel 21 Specimen collection (procedure) (no date) [facility] (missing) (missing) (missing) Result panel 22 Specimen collection (procedure) (no date) [facility] (missing) (missing) (missing) Result panel 23 Specimen collection (procedure) (no date) [facility] (missing) (missing) (missing) Result panel 24 Specimen collection (procedure) (no date) [facility] (missing) (missing) (missing) Result panel 25 Specimen collection (procedure) (no date) [facility] (missing) (missing) (missing) Result panel 26 Specimen collection (procedure) (no date) [facility] (missing) (missing) (missing) Result panel 27 Specimen collection (procedure) (no date) [facility] (missing) (missing) (missing) Result panel 28 Specimen collection (procedure) (no date) [facility] (missing) (missing) (missing) Result panel 29 Specimen collection (procedure) (no date) [facility] (missing) (missing) (missing) Result panel 30 Specimen collection (procedure) (no date) [facility] (missing) (missing) (missing) Result panel 31 Specimen collection (procedure) (no date) [facility] (missing) (missing) (missing) Result panel 32 Specimen collection (procedure) (no date) [facility] (missing) (missing) (missing) Result panel 33 Specimen collection (procedure) (no date) [facility] (missing) (missing) (missing) Result panel 34 Specimen collection (procedure) (no date) [facility] (missing) (missing) (missing) Result panel 35 Specimen collection (procedure) (no date) [facility] (missing) (missing) (missing) Result panel 36 Specimen collection (procedure) (no date) [facility] (missing) (missing) (missing) Result panel 37 Specimen collection (procedure) (no date) [facility] (missing) (missing) (missing) Result panel 38 Specimen collection (procedure) (no date) [facility] (missing) (missing) (missing) Result panel 39 Specimen collection (procedure) (no date) [facility] (missing) (missing) (missing) Result panel 40 Specimen collection (procedure) (no date) [facility] (missing) (missing) (missing) Result panel 41 Specimen collection (procedure) (no date) [facility] (missing) (missing) (missing) Result panel 42 Specimen collection (procedure) (no date) [facility] (missing) (missing) (missing) Result panel 43 Specimen collection (procedure) (no date) [facility] (missing) (missing) (missing) Result panel 44 Specimen collection (procedure) (no date) [facility] (missing) (missing) (missing) Result panel 45 Specimen collection (procedure) (no date) [facility] (missing) (missing) (missing) Result panel 46 Specimen collection (procedure) (no date) [facility] (missing) (missing) (missing) Result panel 47 Specimen collection (procedure) (no date) [facility] (missing) (missing) (missing) Result panel 48 Specimen collection (procedure) (no date) [facility] (missing) (missing) (missing) Result panel 49 Specimen collection (procedure) (no date) [facility] (missing) (missing) (missing) Result panel 50 Specimen collection (procedure) (no date) [facility] (missing) (missing) (missing) Result panel 51 Specimen collection (procedure) (no date) [facility] (missing) (missing) (missing) Result panel 52 Specimen collection (procedure) (no date) [facility] (missing) (missing) (missing) Result panel 53 Specimen collection (procedure) (no date) [facility] (missing) (missing) (missing) Result panel 54 Specimen collection (procedure) (no date) [facility] (missing) (missing) (missing) Result panel 55 Specimen collection (procedure) (no date) [facility] (missing) (missing) (missing) Result panel 56 Specimen collection (procedure) (no date) [facility] (missing) (missing) (missing) Result panel 57 Specimen collection (procedure) (no date) [facility] (missing) (missing) (missing) Result panel 58 Specimen collection (procedure) (no date) [facility] (missing) (missing) (missing) Result panel 59 Specimen collection (procedure) (no date) [facility] (missing) (missing) (missing) Result panel 60 Specimen collection (procedure) (no date) [facility] (missing) (missing) (missing) Result panel 61 Specimen collection (procedure) (no date) [facility] (missing) (missing) (missing) Result panel 62 Specimen collection (procedure) (no date) [facility] (missing) (missing) (missing) Result panel 63 Specimen collection (procedure) (no date) [facility] (missing) (missing) (missing) Result panel 64 Specimen collection (procedure) (no date) [facility] (missing) (missing) (missing) Result panel 65 Specimen collection (procedure) (no date) [facility] (missing) (missing) (missing) Result panel 66 Specimen collection (procedure) (no date) [facility] (missing) (missing) (missing) Result panel 67 Specimen collection (procedure) (no date) [facility] (missing) (missing) (missing) Result panel 68 Specimen collection (procedure) (no date) [facility] (missing) (missing) (missing) Result panel 69 Specimen collection (procedure) (no date) [facility] (missing) (missing) (missing) Result panel 70 Specimen collection (procedure) (no date) [facility] (missing) (missing) (missing) Result panel 71 Specimen collection (procedure) (no date) [facility] (missing) (missing) (missing) Result panel 72 Specimen collection (procedure) (no date) [facility] (missing) (missing) (missing) Result panel 73 Specimen collection (procedure) (no date) [facility] (missing) (missing) (missing) Result panel 74 Specimen collection (procedure) (no date) [facility] (missing) (missing) (missing) Result panel 75 Specimen collection (procedure) (no date) [facility] (missing) (missing) (missing) Result panel 76 Specimen collection (procedure) (no date) [facility] (missing) (missing) (missing) Result panel 77 Specimen collection (procedure) (no date) [facility] (missing) (missing) (missing) Result panel 78 Specimen collection (procedure) (no date) [facility] (missing) (missing) (missing) Result panel 79 Specimen collection (procedure) (no date) [facility] (missing) (missing) (missing) Result panel 80 Specimen collection (procedure) (no date) [facility] (missing) (missing) (missing) Result panel 81 Specimen collection (procedure) (no date) [facility] (missing) (missing) (missing) Result panel 82 Specimen collection (procedure) (no date) [facility] (missing) (missing) (missing) Result panel 83 Specimen collection (procedure) (no date) [facility] (missing) (missing) (missing) Result panel 84 Specimen collection (procedure) (no date) [facility] (missing) (missing) (missing) Result panel 85 Specimen collection (procedure) (no date) [facility] (missing) (missing) (missing) Result panel 86 Specimen collection (procedure) (no date) [facility] (missing) (missing) (missing) Result panel 87 Specimen collection (procedure) (no date) [facility] (missing) (missing) (missing) Result panel 88 Specimen collection (procedure) (no date) [facility] (missing) (missing) (missing) Result panel 89 Specimen collection (procedure) (no date) [facility] (missing) (missing) (missing) Result panel 90 Specimen collection (procedure) (no date) [facility] (missing) (missing) (missing) Result panel 91 Specimen collection (procedure) (no date) [facility] (missing) (missing) (missing) Result panel 92 Specimen collection (procedure) (no date) [facility] (missing) (missing) (missing) Result panel 93 Specimen collection (procedure) (no date) [facility] (missing) (missing) (missing) Result panel 94 Specimen collection (procedure) (no date) [facility] (missing) (missing) (missing) Result panel 95 Specimen collection (procedure) (no date) [facility] (missing) (missing) (missing) Result panel 96 Specimen collection (procedure) (no date) [facility] (missing) (missing) (missing) Result panel 97 Specimen collection (procedure) (no date) [facility] (missing) (missing) (missing) Result panel 98 Specimen collection (procedure) (no date) [facility] (missing) (missing) (missing) Result panel 99 Specimen collection (procedure) (no date) [facility] (missing) (missing) (missing) Result panel 100 Specimen collection (procedure) (no date) [facility] (missing) (missing) (missing) Result panel 101 Specimen collection (procedure) (no date) [facility] (missing) (missing) (missing) Result panel 102 Specimen collection (procedure) (no date) [facility] (missing) (missing) (missing) Result panel 103 Specimen collection (procedure) (no date) [facility] (missing) (missing) (missing) Result panel 104 Specimen collection (procedure) (no date) [facility] (missing) (missing) (missing) Result panel 105 Specimen collection (procedure) (no date) [facility] (missing) (missing) (missing) Result panel 106 Specimen collection (procedure) (no date) [facility] (missing) (missing) (missing) Result panel 107 Specimen collection (procedure) (no date) [facility] (missing) (missing) (missing) Result panel 108 Specimen collection (procedure) (no date) [facility] (missing) (missing) (missing) Result panel 109 Specimen collection (procedure) (no date) [facility] (missing) (missing) (missing) Result panel 110 Specimen collection (procedure) (no date) [facility] (missing) (missing) (missing) Result panel 111 Specimen collection (procedure) (no date) [facility] (missing) (missing) (missing) Result panel 112 Specimen collection (procedure) (no date) [facility] (missing) (missing) (missing) Result panel 113 Specimen collection (procedure) (no date) [facility] (missing) (missing) (missing) Result panel 114 Specimen collection (procedure) (no date) [facility] (missing) (missing) (missing) Result panel 115 Specimen collection (procedure) (no date) [facility] (missing) (missing) (missing) Result panel 116 Specimen collection (procedure) (no date) [facility] (missing) (missing) (missing) Result panel 117 Specimen collection (procedure) (no date) [facility] (missing) (missing) (missing) Result panel 118 Specimen collection (procedure) (no date) [facility] (missing) (missing) (missing) Result panel 119 Specimen collection (procedure) (no date) [facility] (missing) (missing) (missing) Result panel 120 Specimen collection (procedure) (no date) [facility] (missing) (missing) (missing) Result panel 121 Specimen collection (procedure) (no date) [facility] (missing) (missing) (missing) Result panel 122 Specimen collection (procedure) (no date) [facility] (missing) (missing) (missing) Result panel 123 Specimen collection (procedure) (no date) [facility] (missing) (missing) (missing) Result panel 124 Specimen collection (procedure) (no date) [facility] (missing) (missing) (missing) Result panel 125 Specimen collection (procedure) (no date) [facility] (missing) (missing) (missing) Result panel 126 Specimen collection (procedure) (no date) [facility] (missing) (missing) (missing) Result panel 127 Specimen collection (procedure) (no date) [facility] (missing) (missing) (missing) Result panel 128 Specimen collection (procedure) (no date) [facility] (missing) (missing) (missing) Result panel 129 Specimen collection (procedure) (no date) [facility] (missing) (missing) (missing) Result panel 130 Specimen collection (procedure) (no date) [facility] (missing) (missing) (missing) Result panel 131 Specimen collection (procedure) (no date) [facility] (missing) (missing) (missing) Result panel 132 Specimen collection (procedure) (no date) [facility] (missing) (missing) (missing) Result panel 133 Specimen collection (procedure) (no date) [facility] (missing) (missing) (missing) Result panel 134 Specimen collection (procedure) (no date) [facility] (missing) (missing) (missing) Result panel 135 Specimen collection (procedure) (no date) [facility] (missing) (missing) (missing) Result panel 136 Specimen collection (procedure) (no date) [facility] (missing) (missing) (missing) Result panel 137 Specimen collection (procedure) (no date) [facility] (missing) (missing) (missing) Result panel 138 Specimen collection (procedure) (no date) [facility] (missing) (missing) (missing) Result panel 139 Specimen collection (procedure) (no date) [facility] (missing) (missing) (missing) Result panel 140 Specimen collection (procedure) (no date) [facility] (missing) (missing) (missing) Result panel 141 Specimen collection (procedure) (no date) [facility] (missing) (missing) (missing) Result panel 142 Specimen collection (procedure) (no date) [facility] (missing) (missing) (missing) Result panel 143 Specimen collection (procedure) (no date) [facility] (missing) (missing) (missing) Result panel 144 Specimen collection (procedure) (no date) [facility] (missing) (missing) (missing) Result panel 145 Specimen collection (procedure) (no date) [facility] (missing) (missing) (missing) Result panel 146 Specimen collection (procedure) (no date) [facility] (missing) (missing) (missing) Result panel 147 Specimen collection (procedure) (no date) [facility] (missing) (missing) (missing) Result panel 148 Specimen collection (procedure) (no date) [facility] (missing) (missing) (missing) Result panel 149 Specimen collection (procedure) (no date) [facility] (missing) (missing) (missing) Result panel 150 Specimen collection (procedure) (no date) [facility] (missing) (missing) (missing) Result panel 151 Specimen collection (procedure) (no date) [facility] (missing) (missing) (missing) Result panel 152 Specimen collection (procedure) (no date) [facility] (missing) (missing) (missing) Result panel 153 Specimen collection (procedure) (no date) [facility] (missing) (missing) (missing) Result panel 154 Specimen collection (procedure) (no date) [facility] (missing) (missing) (missing) Result panel 155 Specimen collection (procedure) (no date) [facility] (missing) (missing) (missing) Result panel 156 Specimen collection (procedure) (no date) [facility] (missing) (missing) (missing) Result panel 157 Specimen collection (procedure) (no date) [facility] (missing) (missing) (missing) Result panel 158 Specimen collection (procedure) (no date) [facility] (missing) (missing) (missing) Result panel 159 Specimen collection (procedure) (no date) [facility] (missing) (missing) (missing) Result panel 160 Specimen collection (procedure) (no date) [facility] (missing) (missing) (missing) Result panel 161 Specimen collection (procedure) (no date) [facility] (missing) (missing) (missing) Result panel 162 Specimen collection (procedure) (no date) [facility] (missing) (missing) (missing) Result panel 163 Specimen collection (procedure) (no date) [facility] (missing) (missing) (missing) Result panel 164 Specimen collection (procedure) (no date) [facility] (missing) (missing) (missing) Result panel 165 Specimen collection (procedure) (no date) [facility] (missing) (missing) (missing) Result panel 166 Specimen collection (procedure) (no date) [facility] (missing) (missing) (missing) Result panel 167 Specimen collection (procedure) (no date) [facility] (missing) (missing) (missing) Result panel 168 Specimen collection (procedure) (no date) [facility] (missing) (missing) (missing) Result panel 169 Specimen collection (procedure) (no date) [facility] (missing) (missing) (missing) Result panel 170 Specimen collection (procedure) (no date) [facility] (missing) (missing) (missing) Result panel 171 Specimen collection (procedure) (no date) [facility] (missing) (missing) (missing) Result panel 172 Specimen collection (procedure) (no date) [facility] (missing) (missing) (missing) Result panel 173 Specimen collection (procedure) (no date) [facility] (missing) (missing) (missing) Result panel 174 Specimen collection (procedure) (no date) [facility] (missing) (missing) (missing) Result panel 175 Specimen collection (procedure) (no date) [facility] (missing) (missing) (missing) Result panel 176 Specimen collection (procedure) (no date) [facility] (missing) (missing) (missing) Result panel 177 Specimen collection (procedure) (no date) [facility] (missing) (missing) (missing) Result panel 178 Specimen collection (procedure) (no date) [facility] (missing) (missing) (missing) Result panel 179 Specimen collection (procedure) (no date) [facility] (missing) (missing) (missing) Result panel 180 Specimen collection (procedure) (no date) [facility] (missing) (missing) (missing) Result panel 181 Specimen collection (procedure) (no date) [facility] (missing) (missing) (missing) Result panel 182 Specimen collection (procedure) (no date) [facility] (missing) (missing) (missing) Result panel 183 Specimen collection (procedure) (no date) [facility] (missing) (missing) (missing) Result panel 184 Specimen collection (procedure) (no date) [facility] (missing) (missing) (missing) Result panel 185 Specimen collection (procedure) (no date) [facility] (missing) (missing) (missing) Result panel 186 Specimen collection (procedure) (no date) [facility] (missing) (missing) (missing) Result panel 187 Specimen collection (procedure) (no date) [facility] (missing) (missing) (missing) Result panel 188 Specimen collection (procedure) (no date) [facility] (missing) (missing) (missing) Result panel 189 Specimen collection (procedure) (no date) [facility] (missing) (missing) (missing) Result panel 190 Specimen collection (procedure) (no date) [facility] (missing) (missing) (missing) Result panel 191 Specimen collection (procedure) (no date) [facility] (missing) (missing) (missing) Result panel 192 Specimen collection (procedure) (no date) [facility] (missing) (missing) (missing) Result panel 193 Specimen collection (procedure) (no date) [facility] (missing) (missing) (missing) Result panel 194 Specimen collection (procedure) (no date) [facility] (missing) (missing) (missing) Result panel 195 Specimen collection (procedure) (no date) [facility] (missing) (missing) (missing) Result panel 196 Specimen collection (procedure) (no date) [facility] (missing) (missing) (missing) Result panel 197 Specimen collection (procedure) (no date) [facility] (missing) (missing) (missing) Result panel 198 Specimen collection (procedure) (no date) [facility] (missing) (missing) (missing) Result panel 199 Specimen collection (procedure) (no date) [facility] (missing) (missing) (missing) Result panel 200 Specimen collection (procedure) (no date) [facility] (missing) (missing) (missing) Result panel 201 Specimen collection (procedure) (no date) [facility] (missing) (missing) (missing) Result panel 202 Specimen collection (procedure) (no date) [facility] (missing) (missing) (missing) Result panel 203 Specimen collection (procedure) (no date) [facility] (missing) (missing) (missing) Result panel 204 Specimen collection (procedure) (no date) [facility] (missing) (missing) (missing) Result panel 205 Specimen collection (procedure) (no date) [facility] (missing) (missing) (missing) Result panel 206 Specimen collection (procedure) (no date) [facility] (missing) (missing) (missing) Result panel 207 Specimen collection (procedure) (no date) [facility] (missing) (missing) (missing) Result panel 208 Specimen collection (procedure) (no date) [facility] (missing) (missing) (missing) Result panel 209 Specimen collection (procedure) (no date) [facility] (missing) (missing) (missing) Result panel 210 Specimen collection (procedure) (no date) [facility] (missing) (missing) (missing) Result panel 211 Specimen collection (procedure) (no date) [facility] (missing) (missing) (missing) Result panel 212 Specimen collection (procedure) (no date) [facility] (missing) (missing) (missing) Result panel 213 Specimen collection (procedure) (no date) [facility] (missing) (missing) (missing) Result panel 214 Specimen collection (procedure) (no date) [facility] (missing) (missing) (missing) Result panel 215 Specimen collection (procedure) (no date) [facility] (missing) (missing) (missing) Result panel 216 Specimen collection (procedure) (no date) [facility] (missing) (missing) (missing) Result panel 217 Specimen collection (procedure) (no date) [facility] (missing) (missing) (missing) Result panel 218 Specimen collection (procedure) (no date) [facility] (missing) (missing) (missing) Result panel 219 Specimen collection (procedure) (no date) [facility] (missing) (missing) (missing) Result panel 220 Specimen collection (procedure) (no date) [facility] (missing) (missing) (missing) Result panel 221 Specimen collection (procedure) (no date) [facility] (missing) (missing) (missing) Result panel 222 Specimen collection (procedure) (no date) [facility] (missing) (missing) (missing) Result panel 223 Specimen collection (procedure) (no date) [facility] (missing) (missing) (missing) Result panel 224 Specimen collection (procedure) (no date) [facility] (missing) (missing) (missing) Result panel 225 Specimen collection (procedure) (no date) [facility] (missing) (missing) (missing) Result panel 226 Specimen collection (procedure) (no date) [facility] (missing) (missing) (missing) Result panel 227 Specimen collection (procedure) (no date) [facility] (missing) (missing) (missing) Result panel 228 Specimen collection (procedure) (no date) [facility] (missing) (missing) (missing) Result panel 229 Specimen collection (procedure) (no date) [facility] (missing) (missing) (missing) Result panel 230 Specimen collection (procedure) (no date) [facility] (missing) (missing) (missing) Result panel 231 Specimen collection (procedure) (no date) [facility] (missing) (missing) (missing) Result panel 232 Specimen collection (procedure) (no date) [facility] (missing) (missing) (missing) Result panel 233 Specimen collection (procedure) (no date) [facility] (missing) (missing) (missing) Result panel 234 Specimen collection (procedure) (no date) [facility] (missing) (missing) (missing) Result panel 235 Specimen collection (procedure) (no date) [facility] (missing) (missing) (missing) Result panel 236 Specimen collection (procedure) (no date) [facility] (missing) (missing) (missing) Result panel 237 Specimen collection (procedure) (no date) [facility] (missing) (missing) (missing) Result panel 238 Specimen collection (procedure) (no date) [facility] (missing) (missing) (missing) Result panel 239 Specimen collection (procedure) (no date) [facility] (missing) (missing) (missing) Result panel 240 Specimen collection (procedure) (no date) [facility] (missing) (missing) (missing) Result panel 241 Specimen collection (procedure) (no date) [facility] (missing) (missing) (missing) Result panel 242 Specimen collection (procedure) (no date) [facility] (missing) (missing) (missing) Result panel 243 Specimen collection (procedure) (no date) [facility] (missing) (missing) (missing) Result panel 244 Specimen collection (procedure) (no date) [facility] (missing) (missing) (missing) Result panel 245 Specimen collection (procedure) (no date) [facility] (missing) (missing) (missing) Result panel 246 Specimen collection (procedure) (no date) [facility] (missing) (missing) (missing) Result panel 247 Specimen collection (procedure) (no date) [facility] (missing) (missing) (missing) Result panel 248 Specimen collection (procedure) (no date) [facility] (missing) (missing) (missing) Result panel 249 Specimen collection (procedure) (no date) [facility] (missing) (missing) (missing) Result panel 250 Specimen collection (procedure) (no date) [facility] (missing) (missing) (missing) Result panel 251 Specimen collection (procedure) (no date) [facility] (missing) (missing) (missing) Result panel 252 Specimen collection (procedure) (no date) [facility] (missing) (missing) (missing) Result panel 253 Specimen collection (procedure) (no date) [facility] (missing) (missing) (missing) Result panel 254 Specimen collection (procedure) (no date) [facility] (missing) (missing) (missing) Result panel 255 Specimen collection (procedure) (no date) [facility] (missing) (missing) (missing) Result panel 256 Specimen collection (procedure) (no date) [facility] (missing) (missing) (missing) Result panel 257 Specimen collection (procedure) (no date) [facility] (missing) (missing) (missing) Result panel 258 Specimen collection (procedure) (no date) [facility] (missing) (missing) (missing) Result panel 259 Specimen collection (procedure) (no date) [facility] (missing) (missing) (missing) Result panel 260 Specimen collection (procedure) (no date) [facility] (missing) (missing) (missing) Result panel 261 Specimen collection (procedure) (no date) [facility] (missing) (missing) (missing) Result panel 262 Specimen collection (procedure) (no date) [facility] (missing) (missing) (missing) Result panel 263 Specimen collection (procedure) (no date) [facility] (missing) (missing) (missing) Result panel 264 Specimen collection (procedure) (no date) [facility] (missing) (missing) (missing) Result panel 265 Specimen collection (procedure) (no date) [facility] (missing) (missing) (missing) Result panel 266 Specimen collection (procedure) (no date) [facility] (missing) (missing) (missing) Result panel 267 Specimen collection (procedure) (no date) [facility] (missing) (missing) (missing) Result panel 268 Specimen collection (procedure) (no date) [facility] (missing) (missing) (missing) Result panel 269 Specimen collection (procedure) (no date) [facility] (missing) (missing) (missing) Result panel 270 Specimen collection (procedure) (no date) [facility] (missing) (missing) (missing) Result panel 271 Specimen collection (procedure) (no date) [facility] (missing) (missing) (missing) Result panel 272 Specimen collection (procedure) (no date) [facility] (missing) (missing) (missing) Result panel 273 Specimen collection (procedure) (no date) [facility] (missing) (missing) (missing) Result panel 274 Specimen collection (procedure) (no date) [facility] (missing) (missing) (missing) Result panel 275 Specimen collection (procedure) (no date) [facility] (missing) (missing) (missing) Result panel 276 Specimen collection (procedure) (no date) [facility] (missing) (missing) (missing) Result panel 277 Specimen collection (procedure) (no date) [facility] (missing) (missing) (missing) Result panel 278 Specimen collection (procedure) (no date) [facility] (missing) (missing) (missing) Result panel 279 Specimen collection (procedure) (no date) [facility] (missing) (missing) (missing) Result panel 280 Specimen collection (procedure) (no date) [facility] (missing) (missing) (missing) Result panel 281 Specimen collection (procedure) (no date) [facility] (missing) (missing) (missing) Result panel 282 Specimen collection (procedure) (no date) [facility] (missing) (missing) (missing) Result panel 283 Specimen collection (procedure) (no date) [facility] (missing) (missing) (missing) Result panel 284 Specimen collection (procedure) (no date) [facility] (missing) (missing) (missing) Result panel 285 Specimen collection (procedure) (no date) [facility] (missing) (missing) (missing) Result panel 286 Specimen collection (procedure) (no date) [facility] (missing) (missing) (missing) Result panel 287 Specimen collection (procedure) (no date) [facility] (missing) (missing) (missing) Result panel 288 Specimen collection (procedure) (no date) [facility] (missing) (missing) (missing) Result panel 289 Specimen collection (procedure) (no date) [facility] (missing) (missing) (missing) Result panel 290 Specimen collection (procedure) (no date) [facility] (missing) (missing) (missing) Result panel 291 White blood cell count 2025-07-15 23:20:07 [facility] 1 1.1 X10^3/uL (missing) Result panel 292 Automated neutrophil % 2025-07-15 23:20:07 [facility] 7 5.9 % (missing) Result panel 293 Automated lymphocyte % 2025-07-15 23:20:07 [facility] 8 .1 % (missing) Result panel 294 Automated monocyte % 2025-07-15 23:20:07 [facility] 11. 6 % (missing) Result panel 295 Automated eosinophil % 2025-07-15 23:20:07 [facility] 3 .9 % (missing) Result panel 296 Automated basophil % 2025-07-15 23:20:07 [facility] 0.5 % (missing) Result panel 297 Absolute neutrophil count 2025-07-15 23:20:07 [facility] l 8400 /uL (missing) Result panel 298 Absolute lymphocyte count 2025-07-15 23:20:07 [facility] l 900 /uL (missing) Result panel 299 Automated blood monocyte count 2025-07-15 23:20:07 [facility] 1300 /uL (missing) Result panel 300 Automated eosinophil count 2025-07-15 23:20:07 [facility] 400 /uL (missing) Result panel 301 Automated basophil count 2025-07-15 23:20:07 [facility] 100 /uL (missing) Result panel 302 Red blood cell count 2025-07-15 23:20:07 [facility] 3.5 7 X10^6/uL (missing) Result panel 303 Creatine kinase [Enzymatic activity/volume] in Serum or Plasma 2025-07-15 23:20:07 [facility] 110 U/L ([facility]) Result panel 304 Troponin I.cardiac [Mass/volume] in Serum or Plasma 2025-07-15 23:20:07 [facility] 0.018 ng/mL ([facility]) Result panel 305 Natriuretic peptide.B prohormone N-Terminal [Mass/volume] in Serum or Plasma 2025-07-15 23:20:07 [facility] 4420 pg/mL ([facility]) Result panel 306 Sodium [Moles/volume] in Serum or Plasma 2025-07-15 23:20:07 [facility] 138 mmol/L ([facility]) Result panel 307 Potassium [Moles/volume] in Serum or Plasma 2025-07-15 23:20:07 [facility] 4.0 mmol/L ([facility]) Result panel 308 Chloride [Moles/volume] in Serum or Plasma 2025-07-15 23:20:07 [facility] 106 mmol/L ([facility]) Result panel 309 Carbon dioxide, total [Moles/volume] in Serum or Plasma 2025-07-15 23:20:07 [facility] Result panel 310 Urea nitrogen [Mass/volume] in Serum or Plasma 2025-07-15 23:20:07 [facility] 29 mg/dL ([facility]) Result panel 311 Creatinine [Mass/volume] in Serum or Plasma 2025-07-15 23:20:07 [facility] 1.18 mg/dL ([facility]) Result panel 312 Glomerular filtration rate (GFR) estimation 2025-07-15 23:20:07 [facility] > 60 mL/min (missing) (missing) Result panel 313 Hemoglobin 2025-07-15 23:20:07 [facility] 9.5 g/d L (missing) Result panel 314 BUN/creatinine ratio 2025-07-15 23:20:07 [facility] 24. 6 (missing) (missing) Result panel 315 Glucose [Mass/volume] in Ser um or Plasma 2025-07-15 23:20:07 [facility] 88 mg/dL ([facility]) Result panel 316 Lactate [Mass/volume] in Serum or Plasma 2025-07-15 23:20:07 [facility] 1.4 mmol/L ([facility]) Result panel 317 Calcium [Mass/volume] in Serum or Plasma 2025-07-15 23:20:07 [facility] 8.6 mg/dL ([facility]) Result panel 318 Bilirubin.total [Mass/volume ] in Serum or Plasma 2025-07-15 23:20:07 [facility] 0.6 mg/dL (missing) Result panel 319 Aspartate aminotransferase [Enzymatic activity/volume] in Serum or Plasma 2025-07-15 23:20:07 [facility] 34 IU/L ([facility]) Result panel 320 Alanine aminotransferase [Enzymatic activity/volume] in Serum or Plasma 2025-07-15 23:20:07 [facility] 21 IU/L ([facility]) Result panel 321 Alkaline phosphatase [Enzyma tic activity/volume] in Serum or Plasma 2025-07-15 23:20:07 [facility] 64 U/L ([facility]) Result panel 322 Protein total ser/plas 2025-07-15 23:20:07 [facility] 7 .4 g/dL (missing) Result panel 323 Albumin [Mass/volume] in Ser um or Plasma 2025-07-15 23:20:07 [facility] 3.8 g/dL ([facility]) Result panel 324 Hematocrit 2025-07-15 23:20:07 [facility] 29.8 % (missing) Result panel 325 Globulin [Mass/volume] in Serum by calculation 2025-07-15 23:20:07 [facility] 3.6 g/dL (missing) Result panel 326 Albumin/Globulin [Mass Ratio] in Serum or Plasma 2025-07-15 23:20:07 [facility] 1.1 (miss ing) (missing) Result panel 327 Lipase [Enzymatic activity/volume] in Serum or Plasma 2025-07-15 23:20:07 [facility] 38 U/L (miss ing) Result panel 328 Procalcitonin [Mass/volume] in Serum or Plasma 2025-07-15 23:20:07 [facility] 0.350 ng/mL (missing) Result panel 329 MCV (mean corpuscular volume ) determination 2025-07-15 23:20:07 [facility] 83.7 fL (mis sing) Result panel 330 Mean corpuscular hemoglobin (MCH) determination 2025-07-15 23:20:07 [facility] 26.7 PG (missing) Result panel 331 Mean corpuscular hemoglobin concentration (MCHC) determination 2025-07-15 23:20:07 [facility] 31.9 % (mis sing) Result panel 332 Red cell distribution width determination 2025-07-15 23:20:07 [facility] 17.2 % (mis sing) Result panel 333 Platelet count 2025-07-15 23:20:07 [facility] 304 X10^3/uL (missing) Result panel 334 X-ray report 2025-07-15 23:44 [facility] (missing) (mis sing) (missing) Result panel 335 Estimated Glomerular Filt Rate 2025-07-15 23:46 [facility] > 60 ml/min Reported eGFR is based the CKD-EPI 2020 equation that does not use a race coefficient. An eGFR below 60 mL/min/1.73m2 suggests that some kidney damage has occurred, and indicative of chronic kidney disease if persisting greater than 3 months. An eGFR less than 15 is indicative of kidney failure. Bilirubin Total 2025-07-15 23:46 [facility] 0.6 mg/dl (missing) Albumin Globulin Ratio 2025-07-15 23:46 [facility] 1.1 (missing) (missing) Creatinine 2025-07-15 23:46 [facility] 1.18 mg/dl (missing) Lactate (Lactic Acid) 2025-07-15 23:46 [facility] 1.4 mmol/l Yes/No query for Sepsis Lactate Rule Y Chloride 2025-07-15 23:46 [facility] 106 mmol/l (missing) Creatine Kinase 2025-07-15 23:46 [facility] 110 u/l (missing) Sodium 2025-07-15 23:46 [facility] 138 mmol/l (missing) Alanine Aminotransferase 2025-07-15 23:46 [facility] 21 iu/l (missing) BUN Creatinine Ratio 2025-07-15 23:46 [facility] 24.6 (missing) (missing) Carbon Dioxide 2025-07-15 23:46 [facility] 26 mmol/l (missing) Blood Urea Nitrogen 2025-07-15 23:46 [facility] 29 mg/dl (missing) Globulin 2025-07-15 23:46 [facility] 3.6 g/dl (missing) Albumin 2025-07-15 23:46 [facility] 3.8 g/dl (missing) Aspartate Aminotransferase 2025-07-15 23:46 [facility] 34 iu/l SLIGHTLY HEMOLYZED SPECIMEN Lipase 2025-07-15 23:46 [facility] 38 u/l (missing) Potassium 2025-07-15 23:46 [facility] 4.0 mmol/l SLIGHTLY HEMOLYZED SPECIMEN Alkaline Phosphatase 2025-07-15 23:46 [facility] 64 u/l SLIGHTLY HEMOLYZED SPECIMEN Total Protein 2025-07-15 23:46 [facility] 7.4 g/dl (missing) Calcium 2025-07-15 23:46 [facility] 8.6 mg/dl (missing) Glucose 2025-07-15 23:46 [facility] 88 mg/dl (missing) Result panel 336 Basophils Percent Auto 2025-07-15 23:49 [facility] 0.5 % (missing) Basophils Absolute Auto 2025-07-15 23:49 [facility] 100 /ul (missing) White Blood Cell Count 2025-07-15 23:49 [facility] 11.1 x10 3/ul (missing) Monocytes Percent Auto 2025-07-15 23:49 [facility] 11.6 % (missing) Monocytes Absolute Auto 2025-07-15 23:49 [facility] 130 0 /ul (missing) Red Cell Distribution Width 2025-07-15 23:49 [facility] 17.2 % (missing) Mean Corpuscular Hemoglobin 2025-07-15 23:49 [facility] 26.7 pg (missing) Hematocrit 2025-07-15 23:49 [facility] 29.8 % (missing) Red Blood Cell Count 2025-07-15 23:49 [facility] 3.57 x10 6/ul (missing) Eosinophils Percent Auto 2025-07-15 23:49 [facility] 3. 9 % (missing) Platelet Count 2025-07-15 23:49 [facility] 304 x1 0 3/ul (missing) Mean Corpuscular HGB Conc 2025-07-15 23:49 [facility] 3 1.9 % (missing) Eosinophils Absolute Auto 2025-07-15 23:49 [facility] 4 00 /ul (missing) Neutrophils Percent Auto 2025-07-15 23:49 [facility] 75 .9 % (missing) Lymphocytes Percent Auto 2025-07-15 23:49 [facility] 8. 1 % (missing) Mean Corpuscular Volume 2025-07-15 23:[address] [place] [address] 83. 7 fl (missing) Neutrophils Absolute Auto 2025-07-15 23:49 [facility] 8 400 /ul (missing) Hemoglobin 2025-07-15 23:49 [facility] 9.5 g/dl (missing) Lymphocytes Absolute Auto 2025-07-15 23:[address] [place] [address] 9 00 /ul (missing) Result panel 337 NT-proBNP (BNP-Adult 18+) 2025-07-15 23:53 [facility] 4 420 pg/ml Social History date description facility 2025-07-15 00:00 Never smoked tobacco (finding) [facility] Vital Signs date measurement value units 2025-07-15 00:00 BMI 17.9 kg/m2 2025-07-15 00:00 height_metric 182.88 cm 2025-07-15 00:00 weight_metric 59.87 kg 2025-07-16 00:00 BP_diastolic 78 mmHg 2025-07-16 00:00 BP_systolic 142 mmHg 2025-07-16 00:00 heart_rate 104 /min 2025-07-16 00:00 o2_saturation 98 % 2025-07-16 00:00 respiration_rate 13 /min 2025-07-16 00:00 temperature_standard 98.8 F
[2025-07-17] MEDS: DEXTROSE 50% ABBOJECT 25 GM/50 ML SYRINGE IVP STA ×3 (05:04→11:49)
[2025-07-17 05:43] LABS: HCT - HEMATOCRIT 36.2 % (42.0-52.0); HGB - HEMOGLOBIN 10.0 g/dL (14.0-18.0); MEAN PLATELET VOLUME 9.3 fL (7.4-11.4); NRBC ABSOLUTE COUNT (AUTO) 0.00 x10^3/uL; NUCLEATED RED BLOOD CELLS AUTO 0.0 /100WBC; PLT - PLATELET COUNT 280 10^3/uL (130-450); RED CELL DISTRIBUTION WIDTH 16.4 % (12.0-15.0)
[2025-07-17 06:04] LABS: ALT ALANINE AMINOTRANSFERASE 13 IU/L (10-60); AST ASPARTATE AMINOTRANSFERASE 15 IU/L (10-42); BUN - BLOOD UREA NITROGEN 18 mg/dL (6-20); CARBON DIOXIDE - CO2 21 mmol/L (21-32); CREATININE 1.0 mg/dL (0.6-1.3); GFR - MDRD 76 (>89)
--- NOTE | 2025-07-17 08:22 | XRAY Report ---
PROCEDURE: XR Chest 1V INDICATIONS: dyspnea TECHNIQUE: One view of the chest was acquired. COMPARISON: None. FINDINGS: Surgical changes and devices: None. Lungs and pleura: Peribronchial cuffing with increased interstitial markings. No effusions or pneumothorax. Mediastinum: Mediastinal contours appear normal. Heart size is normal. Bones and chest wall: No suspicious bony lesions. Overlying soft tissues appear unremarkable. IMPRESSION: Peribronchial cuffing with increased interstitial markings, suggestive of mild to moderate pulmonary edema. Differential includes atypical infection. Findings are concordant with preliminary interpretation provided by [facility]. Reviewed by: Vishal Ochoa MD on 07/17/2025 8:19 AM PDT Approved by: Vishal Ochoa MD on 07/17/2025 8:19 AM PDT Station ID: [id number]
[2025-07-17] MEDS: IPRATROPIUM/ALBUTEROL 3 ML NEB INH STA (08:59)
--- NOTE | 2025-07-17 08:59 | ED Physician Documentation ---
ED Addendum Addendum Addendum: At shift change care from Manjit Montaño a 60-year-old male with history of COPD is left in my care. He is complaining of shortness of breath. He appears to have diffuse infiltrate on his chest x-ray he has a normal heart size and he is complaining of dyspnea. The appearance of the chest x-ray is possibly consistent with pulmonary edema and the patient has an elevated troponin. I evaluated the patient at the bedside with POCUS and found his inferior vena cava to be 11 mm in diameter and collapsing. This is not consistent with failure. This is consistent with volume depletion. He is administered iv FLUID and admitted to the hospitalist service. I found this patient's history challenging and shared this with the hospitalist. Discharge Plan Discharge Patient Disposition: 64 [facility] DC/Xfer Condition: Fair Clinical Impression: Pneumonia, COPD (chronic obstructive pulmonary disease) Interventions: ED Admission Assessment Last Done: 07/17/25 14:00 Vitals documented within 30 minutes of discharge?: Yes
[2025-07-17] MEDS: SODIUM CHLORIDE 0.9% 500 ML IV STA (09:13)
[2025-07-17] MEDS: POTASSIUM CHLOR 10 MEQ/100 ML 10 MEQ/100 ML BAG IV ONE (09:13)
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
[2025-07-17 10:01] LABS: AMPHETAMINE SCREEN,URINE NEGATIVE (NEGATIVE); BARBITURATE SCREEN,UR NEGATIVE (NEGATIVE); BENZODIAZEPINES SCREEN, URINE NEGATIVE (NEGATIVE); BUPRENORPHINE SCREEN, URINE NEGATIVE (NEGATIVE); COCAINE SCREEN URINE NEGATIVE (NEGATIVE); METHADONE SCREEN, URINE NEGATIVE (NEGATIVE); METHAMPHETAMINES SCREEN, URINE NEGATIVE (NEGATIVE); OPIATE SCREEN, URINE NEGATIVE (NEGATIVE); THC CANNABINOID SCREEN, URINE NEGATIVE (NEGATIVE)
[2025-07-17] MEDS: LORazepam 2 MG/ML VIAL IVP STA (10:29)
[2025-07-17 11:45] LABS: B. PARAPERTUSSIS- RESP PCR PAN NOT DETECTED; B. PERTUSSIS- RESP PCR PANEL NOT DETECTED; C. PNEUMONIAE- RESP PCR PANEL NOT DETECTED; CORONAVIRUS 229E-RESP PCR NOT DETECTED; CORONAVIRUS HKU1-RESP PCR NOT DETECTED; CORONAVIRUS NL63-RESP PCR NOT DETECTED; CORONAVIRUS OC43-RESP PCR NOT DETECTED; HUMAN METAPNEUMOVIRUS NOT DETECTED; INFLUENZA A- RESP PCR PANEL NOT DETECTED; INFLUENZA B - RESP PCR PANEL NOT DETECTED; M. PNEUMONIAE- RESP PCR PANEL NOT DETECTED; PARAINFLUENZA VIRUS 1 NOT DETECTED; PARAINFLUENZA VIRUS 2 NOT DETECTED; PARAINFLUENZA VIRUS 4 NOT DETECTED; RHINOVIRUS/ENTEROVIRUS NOT DETECTED; RSV- RESP PCR PANEL NOT DETECTED; SARS-CoV-2 -RESP PCR PANEL NOT DETECTED
--- OUTSIDE RECORDS SUMMARY | 2025-07-17 13:49 | EXTERNAL MEDICAL SUMMARY RPT | Continuity of Care Document ---
Author Organization [facility] Address [address] [place] [id number] Phone Care Team Providers Care Wax Room Supervisor Name Role Phone Unavailable Unavailable Unavailable Jam Linda Unavailable Unavailable Medications date description facility 2025-07-16 00:00 Azithromycin [facility] 2025-07-16 00:00 Amoxicillin-Pot [facility]ul[facility] Problems date description facility 2025-07-16 00:00 Pneumonia [facility] Procedures date description facility 2025-07-15 00:00 X-ray of chest, single view [facility] Results/Labs test date facility value unit notes Result panel 1 Specimen collection (procedure) (no date) [facility] (missing) (missing) (missing) Result panel 2 Specimen collection (procedure) (no date) [facility] (missing) (missing) (missing) Result panel 3 Specimen collection (procedure) (no date) [facility] (missing) (missing) (missing) Result panel 4 Specimen collection (procedure) (no date) [facility] (missing) (missing) (missing) Result panel 5 Specimen collection (procedure) (no date) [facility] (missing) (missing) (missing) Result panel 6 Specimen collection (procedure) (no date) [facility] (missing) (missing) (missing) Result panel 7 Specimen collection (procedure) (no date) [facility] (missing) (missing) (missing) Result panel 8 Specimen collection (procedure) (no date) [facility] (missing) (missing) (missing) Result panel 9 Specimen collection (procedure) (no date) [facility] (missing) (missing) (missing) Result panel 10 Specimen collection (procedure) (no date) [facility] (missing) (missing) (missing) Result panel 11 Specimen collection (procedure) (no date) [facility] (missing) (missing) (missing) Result panel 12 Specimen collection (procedure) (no date) [facility] (missing) (missing) (missing) Result panel 13 Specimen collection (procedure) (no date) [facility] (missing) (missing) (missing) Result panel 14 Specimen collection (procedure) (no date) [facility] (missing) (missing) (missing) Result panel 15 Specimen collection (procedure) (no date) [facility] (missing) (missing) (missing) Result panel 16 Specimen collection (procedure) (no date) [facility] (missing) (missing) (missing) Result panel 17 Specimen collection (procedure) (no date) [facility] (missing) (missing) (missing) Result panel 18 Specimen collection (procedure) (no date) [facility] (missing) (missing) (missing) Result panel 19 Specimen collection (procedure) (no date) [facility] (missing) (missing) (missing) Result panel 20 Specimen collection (procedure) (no date) [facility] (missing) (missing) (missing) Result panel 21 Specimen collection (procedure) (no date) [facility] (missing) (missing) (missing) Result panel 22 Specimen collection (procedure) (no date) [facility] (missing) (missing) (missing) Result panel 23 Specimen collection (procedure) (no date) [facility] (missing) (missing) (missing) Result panel 24 Specimen collection (procedure) (no date) [facility] (missing) (missing) (missing) Result panel 25 Specimen collection (procedure) (no date) [facility] (missing) (missing) (missing) Result panel 26 Specimen collection (procedure) (no date) [facility] (missing) (missing) (missing) Result panel 27 Specimen collection (procedure) (no date) [facility] (missing) (missing) (missing) Result panel 28 Specimen collection (procedure) (no date) [facility] (missing) (missing) (missing) Result panel 29 Specimen collection (procedure) (no date) [facility] (missing) (missing) (missing) Result panel 30 Specimen collection (procedure) (no date) [facility] (missing) (missing) (missing) Result panel 31 Specimen collection (procedure) (no date) [facility] (missing) (missing) (missing) Result panel 32 Specimen collection (procedure) (no date) [facility] (missing) (missing) (missing) Result panel 33 Specimen collection (procedure) (no date) [facility] (missing) (missing) (missing) Result panel 34 Specimen collection (procedure) (no date) [facility] (missing) (missing) (missing) Result panel 35 Specimen collection (procedure) (no date) [facility] (missing) (missing) (missing) Result panel 36 Specimen collection (procedure) (no date) [facility] (missing) (missing) (missing) Result panel 37 Specimen collection (procedure) (no date) [facility] (missing) (missing) (missing) Result panel 38 Specimen collection (procedure) (no date) [facility] (missing) (missing) (missing) Result panel 39 Specimen collection (procedure) (no date) [facility] (missing) (missing) (missing) Result panel 40 Specimen collection (procedure) (no date) [facility] (missing) (missing) (missing) Result panel 41 Specimen collection (procedure) (no date) [facility] (missing) (missing) (missing) Result panel 42 Specimen collection (procedure) (no date) [facility] (missing) (missing) (missing) Result panel 43 Specimen collection (procedure) (no date) [facility] (missing) (missing) (missing) Result panel 44 Specimen collection (procedure) (no date) [facility] (missing) (missing) (missing) Result panel 45 Specimen collection (procedure) (no date) [facility] (missing) (missing) (missing) Result panel 46 Specimen collection (procedure) (no date) [facility] (missing) (missing) (missing) Result panel 47 Specimen collection (procedure) (no date) [facility] (missing) (missing) (missing) Result panel 48 Specimen collection (procedure) (no date) [facility] (missing) (missing) (missing) Result panel 49 Specimen collection (procedure) (no date) [facility] (missing) (missing) (missing) Result panel 50 Specimen collection (procedure) (no date) [facility] (missing) (missing) (missing) Result panel 51 Specimen collection (procedure) (no date) [facility] (missing) (missing) (missing) Result panel 52 Specimen collection (procedure) (no date) [facility] (missing) (missing) (missing) Result panel 53 Specimen collection (procedure) (no date) [facility] (missing) (missing) (missing) Result panel 54 Specimen collection (procedure) (no date) [facility] (missing) (missing) (missing) Result panel 55 Specimen collection (procedure) (no date) [facility] (missing) (missing) (missing) Result panel 56 Specimen collection (procedure) (no date) [facility] (missing) (missing) (missing) Result panel 57 Specimen collection (procedure) (no date) [facility] (missing) (missing) (missing) Result panel 58 Specimen collection (procedure) (no date) [facility] (missing) (missing) (missing) Result panel 59 Specimen collection (procedure) (no date) [facility] (missing) (missing) (missing) Result panel 60 Specimen collection (procedure) (no date) [facility] (missing) (missing) (missing) Result panel 61 Specimen collection (procedure) (no date) [facility] (missing) (missing) (missing) Result panel 62 Specimen collection (procedure) (no date) [facility] (missing) (missing) (missing) Result panel 63 Specimen collection (procedure) (no date) [facility] (missing) (missing) (missing) Result panel 64 Specimen collection (procedure) (no date) [facility] (missing) (missing) (missing) Result panel 65 Specimen collection (procedure) (no date) [facility] (missing) (missing) (missing) Result panel 66 Specimen collection (procedure) (no date) [facility] (missing) (missing) (missing) Result panel 67 Specimen collection (procedure) (no date) [facility] (missing) (missing) (missing) Result panel 68 Specimen collection (procedure) (no date) [facility] (missing) (missing) (missing) Result panel 69 Specimen collection (procedure) (no date) [facility] (missing) (missing) (missing) Result panel 70 Specimen collection (procedure) (no date) [facility] (missing) (missing) (missing) Result panel 71 Specimen collection (procedure) (no date) [facility] (missing) (missing) (missing) Result panel 72 Specimen collection (procedure) (no date) [facility] (missing) (missing) (missing) Result panel 73 Specimen collection (procedure) (no date) [facility] (missing) (missing) (missing) Result panel 74 Specimen collection (procedure) (no date) [facility] (missing) (missing) (missing) Result panel 75 Specimen collection (procedure) (no date) [facility] (missing) (missing) (missing) Result panel 76 Specimen collection (procedure) (no date) [facility] (missing) (missing) (missing) Result panel 77 Specimen collection (procedure) (no date) [facility] (missing) (missing) (missing) Result panel 78 Specimen collection (procedure) (no date) [facility] (missing) (missing) (missing) Result panel 79 Specimen collection (procedure) (no date) [facility] (missing) (missing) (missing) Result panel 80 Specimen collection (procedure) (no date) [facility] (missing) (missing) (missing) Result panel 81 Specimen collection (procedure) (no date) [facility] (missing) (missing) (missing) Result panel 82 Specimen collection (procedure) (no date) [facility] (missing) (missing) (missing) Result panel 83 Specimen collection (procedure) (no date) [facility] (missing) (missing) (missing) Result panel 84 Specimen collection (procedure) (no date) [facility] (missing) (missing) (missing) Result panel 85 Specimen collection (procedure) (no date) [facility] (missing) (missing) (missing) Result panel 86 Specimen collection (procedure) (no date) [facility] (missing) (missing) (missing) Result panel 87 Specimen collection (procedure) (no date) [facility] (missing) (missing) (missing) Result panel 88 Specimen collection (procedure) (no date) [facility] (missing) (missing) (missing) Result panel 89 Specimen collection (procedure) (no date) [facility] (missing) (missing) (missing) Result panel 90 Specimen collection (procedure) (no date) [facility] (missing) (missing) (missing) Result panel 91 Specimen collection (procedure) (no date) [facility] (missing) (missing) (missing) Result panel 92 Specimen collection (procedure) (no date) [facility] (missing) (missing) (missing) Result panel 93 Specimen collection (procedure) (no date) [facility] (missing) (missing) (missing) Result panel 94 Specimen collection (procedure) (no date) [facility] (missing) (missing) (missing) Result panel 95 Specimen collection (procedure) (no date) [facility] (missing) (missing) (missing) Result panel 96 Specimen collection (procedure) (no date) [facility] (missing) (missing) (missing) Result panel 97 Specimen collection (procedure) (no date) [facility] (missing) (missing) (missing) Result panel 98 Specimen collection (procedure) (no date) [facility] (missing) (missing) (missing) Result panel 99 Specimen collection (procedure) (no date) [facility] (missing) (missing) (missing) Result panel 100 Specimen collection (procedure) (no date) [facility] (missing) (missing) (missing) Result panel 101 Specimen collection (procedure) (no date) [facility] (missing) (missing) (missing) Result panel 102 Specimen collection (procedure) (no date) [facility] (missing) (missing) (missing) Result panel 103 Specimen collection (procedure) (no date) [facility] (missing) (missing) (missing) Result panel 104 Specimen collection (procedure) (no date) [facility] (missing) (missing) (missing) Result panel 105 Specimen collection (procedure) (no date) [facility] (missing) (missing) (missing) Result panel 106 Specimen collection (procedure) (no date) [facility] (missing) (missing) (missing) Result panel 107 Specimen collection (procedure) (no date) [facility] (missing) (missing) (missing) Result panel 108 Specimen collection (procedure) (no date) [facility] (missing) (missing) (missing) Result panel 109 Specimen collection (procedure) (no date) [facility] (missing) (missing) (missing) Result panel 110 Specimen collection (procedure) (no date) [facility] (missing) (missing) (missing) Result panel 111 Specimen collection (procedure) (no date) [facility] (missing) (missing) (missing) Result panel 112 Specimen collection (procedure) (no date) [facility] (missing) (missing) (missing) Result panel 113 Specimen collection (procedure) (no date) [facility] (missing) (missing) (missing) Result panel 114 Specimen collection (procedure) (no date) [facility] (missing) (missing) (missing) Result panel 115 Specimen collection (procedure) (no date) [facility] (missing) (missing) (missing) Result panel 116 Specimen collection (procedure) (no date) [facility] (missing) (missing) (missing) Result panel 117 Specimen collection (procedure) (no date) [facility] (missing) (missing) (missing) Result panel 118 Specimen collection (procedure) (no date) [facility] (missing) (missing) (missing) Result panel 119 Specimen collection (procedure) (no date) [facility] (missing) (missing) (missing) Result panel 120 Specimen collection (procedure) (no date) [facility] (missing) (missing) (missing) Result panel 121 Specimen collection (procedure) (no date) [facility] (missing) (missing) (missing) Result panel 122 Specimen collection (procedure) (no date) [facility] (missing) (missing) (missing) Result panel 123 Specimen collection (procedure) (no date) [facility] (missing) (missing) (missing) Result panel 124 Specimen collection (procedure) (no date) [facility] (missing) (missing) (missing) Result panel 125 Specimen collection (procedure) (no date) [facility] (missing) (missing) (missing) Result panel 126 Specimen collection (procedure) (no date) [facility] (missing) (missing) (missing) Result panel 127 Specimen collection (procedure) (no date) [facility] (missing) (missing) (missing) Result panel 128 Specimen collection (procedure) (no date) [facility] (missing) (missing) (missing) Result panel 129 Specimen collection (procedure) (no date) [facility] (missing) (missing) (missing) Result panel 130 Specimen collection (procedure) (no date) [facility] (missing) (missing) (missing) Result panel 131 Specimen collection (procedure) (no date) [facility] (missing) (missing) (missing) Result panel 132 Specimen collection (procedure) (no date) [facility] (missing) (missing) (missing) Result panel 133 Specimen collection (procedure) (no date) [facility] (missing) (missing) (missing) Result panel 134 Specimen collection (procedure) (no date) [facility] (missing) (missing) (missing) Result panel 135 Specimen collection (procedure) (no date) [facility] (missing) (missing) (missing) Result panel 136 Specimen collection (procedure) (no date) [facility] (missing) (missing) (missing) Result panel 137 Specimen collection (procedure) (no date) [facility] (missing) (missing) (missing) Result panel 138 Specimen collection (procedure) (no date) [facility] (missing) (missing) (missing) Result panel 139 Specimen collection (procedure) (no date) [facility] (missing) (missing) (missing) Result panel 140 Specimen collection (procedure) (no date) [facility] (missing) (missing) (missing) Result panel 141 Specimen collection (procedure) (no date) [facility] (missing) (missing) (missing) Result panel 142 Specimen collection (procedure) (no date) [facility] (missing) (missing) (missing) Result panel 143 Specimen collection (procedure) (no date) [facility] (missing) (missing) (missing) Result panel 144 Specimen collection (procedure) (no date) [facility] (missing) (missing) (missing) Result panel 145 Specimen collection (procedure) (no date) [facility] (missing) (missing) (missing) Result panel 146 Specimen collection (procedure) (no date) [facility] (missing) (missing) (missing) Result panel 147 Specimen collection (procedure) (no date) [facility] (missing) (missing) (missing) Result panel 148 Specimen collection (procedure) (no date) [facility] (missing) (missing) (missing) Result panel 149 Specimen collection (procedure) (no date) [facility] (missing) (missing) (missing) Result panel 150 Specimen collection (procedure) (no date) [facility] (missing) (missing) (missing) Result panel 151 Specimen collection (procedure) (no date) [facility] (missing) (missing) (missing) Result panel 152 Specimen collection (procedure) (no date) [facility] (missing) (missing) (missing) Result panel 153 Specimen collection (procedure) (no date) [facility] (missing) (missing) (missing) Result panel 154 Specimen collection (procedure) (no date) [facility] (missing) (missing) (missing) Result panel 155 Specimen collection (procedure) (no date) [facility] (missing) (missing) (missing) Result panel 156 Specimen collection (procedure) (no date) [facility] (missing) (missing) (missing) Result panel 157 Specimen collection (procedure) (no date) [facility] (missing) (missing) (missing) Result panel 158 Specimen collection (procedure) (no date) [facility] (missing) (missing) (missing) Result panel 159 Specimen collection (procedure) (no date) [facility] (missing) (missing) (missing) Result panel 160 Specimen collection (procedure) (no date) [facility] (missing) (missing) (missing) Result panel 161 Specimen collection (procedure) (no date) [facility] (missing) (missing) (missing) Result panel 162 Specimen collection (procedure) (no date) [facility] (missing) (missing) (missing) Result panel 163 Specimen collection (procedure) (no date) [facility] (missing) (missing) (missing) Result panel 164 Specimen collection (procedure) (no date) [facility] (missing) (missing) (missing) Result panel 165 Specimen collection (procedure) (no date) [facility] (missing) (missing) (missing) Result panel 166 Specimen collection (procedure) (no date) [facility] (missing) (missing) (missing) Result panel 167 Specimen collection (procedure) (no date) [facility] (missing) (missing) (missing) Result panel 168 Specimen collection (procedure) (no date) [facility] (missing) (missing) (missing) Result panel 169 Specimen collection (procedure) (no date) [facility] (missing) (missing) (missing) Result panel 170 Specimen collection (procedure) (no date) [facility] (missing) (missing) (missing) Result panel 171 Specimen collection (procedure) (no date) [facility] (missing) (missing) (missing) Result panel 172 Specimen collection (procedure) (no date) [facility] (missing) (missing) (missing) Result panel 173 Specimen collection (procedure) (no date) [facility] (missing) (missing) (missing) Result panel 174 Specimen collection (procedure) (no date) [facility] (missing) (missing) (missing) Result panel 175 Specimen collection (procedure) (no date) [facility] (missing) (missing) (missing) Result panel 176 Specimen collection (procedure) (no date) [facility] (missing) (missing) (missing) Result panel 177 Specimen collection (procedure) (no date) [facility] (missing) (missing) (missing) Result panel 178 Specimen collection (procedure) (no date) [facility] (missing) (missing) (missing) Result panel 179 Specimen collection (procedure) (no date) [facility] (missing) (missing) (missing) Result panel 180 Specimen collection (procedure) (no date) [facility] (missing) (missing) (missing) Result panel 181 Specimen collection (procedure) (no date) [facility] (missing) (missing) (missing) Result panel 182 Specimen collection (procedure) (no date) [facility] (missing) (missing) (missing) Result panel 183 Specimen collection (procedure) (no date) [facility] (missing) (missing) (missing) Result panel 184 Specimen collection (procedure) (no date) [facility] (missing) (missing) (missing) Result panel 185 Specimen collection (procedure) (no date) [facility] (missing) (missing) (missing) Result panel 186 Specimen collection (procedure) (no date) [facility] (missing) (missing) (missing) Result panel 187 Specimen collection (procedure) (no date) [facility] (missing) (missing) (missing) Result panel 188 Specimen collection (procedure) (no date) [facility] (missing) (missing) (missing) Result panel 189 Specimen collection (procedure) (no date) [facility] (missing) (missing) (missing) Result panel 190 Specimen collection (procedure) (no date) [facility] (missing) (missing) (missing) Result panel 191 Specimen collection (procedure) (no date) [facility] (missing) (missing) (missing) Result panel 192 Specimen collection (procedure) (no date) [facility] (missing) (missing) (missing) Result panel 193 Specimen collection (procedure) (no date) [facility] (missing) (missing) (missing) Result panel 194 Specimen collection (procedure) (no date) [facility] (missing) (missing) (missing) Result panel 195 Specimen collection (procedure) (no date) [facility] (missing) (missing) (missing) Result panel 196 Specimen collection (procedure) (no date) [facility] (missing) (missing) (missing) Result panel 197 Specimen collection (procedure) (no date) [facility] (missing) (missing) (missing) Result panel 198 Specimen collection (procedure) (no date) [facility] (missing) (missing) (missing) Result panel 199 Specimen collection (procedure) (no date) [facility] (missing) (missing) (missing) Result panel 200 Specimen collection (procedure) (no date) [facility] (missing) (missing) (missing) Result panel 201 Specimen collection (procedure) (no date) [facility] (missing) (missing) (missing) Result panel 202 Specimen collection (procedure) (no date) [facility] (missing) (missing) (missing) Result panel 203 Specimen collection (procedure) (no date) [facility] (missing) (missing) (missing) Result panel 204 Specimen collection (procedure) (no date) [facility] (missing) (missing) (missing) Result panel 205 Specimen collection (procedure) (no date) [facility] (missing) (missing) (missing) Result panel 206 Specimen collection (procedure) (no date) [facility] (missing) (missing) (missing) Result panel 207 Specimen collection (procedure) (no date) [facility] (missing) (missing) (missing) Result panel 208 Specimen collection (procedure) (no date) [facility] (missing) (missing) (missing) Result panel 209 Specimen collection (procedure) (no date) [facility] (missing) (missing) (missing) Result panel 210 Specimen collection (procedure) (no date) [facility] (missing) (missing) (missing) Result panel 211 Specimen collection (procedure) (no date) [facility] (missing) (missing) (missing) Result panel 212 Specimen collection (procedure) (no date) [facility] (missing) (missing) (missing) Result panel 213 Specimen collection (procedure) (no date) [facility] (missing) (missing) (missing) Result panel 214 Specimen collection (procedure) (no date) [facility] (missing) (missing) (missing) Result panel 215 Specimen collection (procedure) (no date) [facility] (missing) (missing) (missing) Result panel 216 Specimen collection (procedure) (no date) [facility] (missing) (missing) (missing) Result panel 217 Specimen collection (procedure) (no date) [facility] (missing) (missing) (missing) Result panel 218 Specimen collection (procedure) (no date) [facility] (missing) (missing) (missing) Result panel 219 Specimen collection (procedure) (no date) [facility] (missing) (missing) (missing) Result panel 220 Specimen collection (procedure) (no date) [facility] (missing) (missing) (missing) Result panel 221 Specimen collection (procedure) (no date) [facility] (missing) (missing) (missing) Result panel 222 Specimen collection (procedure) (no date) [facility] (missing) (missing) (missing) Result panel 223 Specimen collection (procedure) (no date) [facility] (missing) (missing) (missing) Result panel 224 Specimen collection (procedure) (no date) [facility] (missing) (missing) (missing) Result panel 225 Specimen collection (procedure) (no date) [facility] (missing) (missing) (missing) Result panel 226 Specimen collection (procedure) (no date) [facility] (missing) (missing) (missing) Result panel 227 Specimen collection (procedure) (no date) [facility] (missing) (missing) (missing) Result panel 228 Specimen collection (procedure) (no date) [facility] (missing) (missing) (missing) Result panel 229 Specimen collection (procedure) (no date) [facility] (missing) (missing) (missing) Result panel 230 Specimen collection (procedure) (no date) [facility] (missing) (missing) (missing) Result panel 231 Specimen collection (procedure) (no date) [facility] (missing) (missing) (missing) Result panel 232 Specimen collection (procedure) (no date) [facility] (missing) (missing) (missing) Result panel 233 Specimen collection (procedure) (no date) [facility] (missing) (missing) (missing) Result panel 234 Specimen collection (procedure) (no date) [facility] (missing) (missing) (missing) Result panel 235 Specimen collection (procedure) (no date) [facility] (missing) (missing) (missing) Result panel 236 Specimen collection (procedure) (no date) [facility] (missing) (missing) (missing) Result panel 237 Specimen collection (procedure) (no date) [facility] (missing) (missing) (missing) Result panel 238 Specimen collection (procedure) (no date) [facility] (missing) (missing) (missing) Result panel 239 Specimen collection (procedure) (no date) [facility] (missing) (missing) (missing) Result panel 240 Specimen collection (procedure) (no date) [facility] (missing) (missing) (missing) Result panel 241 Specimen collection (procedure) (no date) [facility] (missing) (missing) (missing) Result panel 242 Specimen collection (procedure) (no date) [facility] (missing) (missing) (missing) Result panel 243 Specimen collection (procedure) (no date) [facility] (missing) (missing) (missing) Result panel 244 Specimen collection (procedure) (no date) [facility] (missing) (missing) (missing) Result panel 245 Specimen collection (procedure) (no date) [facility] (missing) (missing) (missing) Result panel 246 Specimen collection (procedure) (no date) [facility] (missing) (missing) (missing) Result panel 247 Specimen collection (procedure) (no date) [facility] (missing) (missing) (missing) Result panel 248 Specimen collection (procedure) (no date) [facility] (missing) (missing) (missing) Result panel 249 Specimen collection (procedure) (no date) [facility] (missing) (missing) (missing) Result panel 250 Specimen collection (procedure) (no date) [facility] (missing) (missing) (missing) Result panel 251 Specimen collection (procedure) (no date) [facility] (missing) (missing) (missing) Result panel 252 Specimen collection (procedure) (no date) [facility] (missing) (missing) (missing) Result panel 253 Specimen collection (procedure) (no date) [facility] (missing) (missing) (missing) Result panel 254 Specimen collection (procedure) (no date) [facility] (missing) (missing) (missing) Result panel 255 Specimen collection (procedure) (no date) [facility] (missing) (missing) (missing) Result panel 256 Specimen collection (procedure) (no date) [facility] (missing) (missing) (missing) Result panel 257 Specimen collection (procedure) (no date) [facility] (missing) (missing) (missing) Result panel 258 Specimen collection (procedure) (no date) [facility] (missing) (missing) (missing) Result panel 259 Specimen collection (procedure) (no date) [facility] (missing) (missing) (missing) Result panel 260 Specimen collection (procedure) (no date) [facility] (missing) (missing) (missing) Result panel 261 Specimen collection (procedure) (no date) [facility] (missing) (missing) (missing) Result panel 262 Specimen collection (procedure) (no date) [facility] (missing) (missing) (missing) Result panel 263 Specimen collection (procedure) (no date) [facility] (missing) (missing) (missing) Result panel 264 Specimen collection (procedure) (no date) [facility] (missing) (missing) (missing) Result panel 265 Specimen collection (procedure) (no date) [facility] (missing) (missing) (missing) Result panel 266 Specimen collection (procedure) (no date) [facility] (missing) (missing) (missing) Result panel 267 Specimen collection (procedure) (no date) [facility] (missing) (missing) (missing) Result panel 268 Specimen collection (procedure) (no date) [facility] (missing) (missing) (missing) Result panel 269 Specimen collection (procedure) (no date) [facility] (missing) (missing) (missing) Result panel 270 Specimen collection (procedure) (no date) [facility] (missing) (missing) (missing) Result panel 271 Specimen collection (procedure) (no date) [facility] (missing) (missing) (missing) Result panel 272 Specimen collection (procedure) (no date) [facility] (missing) (missing) (missing) Result panel 273 Specimen collection (procedure) (no date) [facility] (missing) (missing) (missing) Result panel 274 Specimen collection (procedure) (no date) [facility] (missing) (missing) (missing) Result panel 275 Specimen collection (procedure) (no date) [facility] (missing) (missing) (missing) Result panel 276 Specimen collection (procedure) (no date) [facility] (missing) (missing) (missing) Result panel 277 Specimen collection (procedure) (no date) [facility] (missing) (missing) (missing) Result panel 278 Specimen collection (procedure) (no date) [facility] (missing) (missing) (missing) Result panel 279 Specimen collection (procedure) (no date) [facility] (missing) (missing) (missing) Result panel 280 Specimen collection (procedure) (no date) [facility] (missing) (missing) (missing) Result panel 281 Specimen collection (procedure) (no date) [facility] (missing) (missing) (missing) Result panel 282 Specimen collection (procedure) (no date) [facility] (missing) (missing) (missing) Result panel 283 Specimen collection (procedure) (no date) [facility] (missing) (missing) (missing) Result panel 284 Specimen collection (procedure) (no date) [facility] (missing) (missing) (missing) Result panel 285 Specimen collection (procedure) (no date) [facility] (missing) (missing) (missing) Result panel 286 Specimen collection (procedure) (no date) [facility] (missing) (missing) (missing) Result panel 287 Specimen collection (procedure) (no date) [facility] (missing) (missing) (missing) Result panel 288 Specimen collection (procedure) (no date) [facility] (missing) (missing) (missing) Result panel 289 Specimen collection (procedure) (no date) [facility] (missing) (missing) (missing) Result panel 290 Specimen collection (procedure) (no date) [facility] (missing) (missing) (missing) Result panel 291 White blood cell count 2025-07-15 23:20:07 [facility] 1 1.1 X10^3/uL (missing) Result panel 292 Automated neutrophil % 2025-07-15 23:20:07 [facility] 7 5.9 % (missing) Result panel 293 Automated lymphocyte % 2025-07-15 23:20:07 [facility] 8 .1 % (missing) Result panel 294 Automated monocyte % 2025-07-15 23:20:07 [facility] 11. 6 % (missing) Result panel 295 Automated eosinophil % 2025-07-15 23:20:07 [facility] 3 .9 % (missing) Result panel 296 Automated basophil % 2025-07-15 23:20:07 [facility] 0.5 % (missing) Result panel 297 Absolute neutrophil count 2025-07-15 23:20:07 [facility] l 8400 /uL (missing) Result panel 298 Absolute lymphocyte count 2025-07-15 23:20:07 [facility] l 900 /uL (missing) Result panel 299 Automated blood monocyte count 2025-07-15 23:20:07 [facility] 1300 /uL (missing) Result panel 300 [facility] Result panel 301 Automated basophil count 2025-07-15 23:20:07 [facility] 100 /uL (missing) Result panel 302 Red blood cell count 2025-07-15 23:20:07 [facility] 3.5 7 X10^6/uL (missing) Result panel 303 Creatine kinase [Enzymatic activity/volume] in Serum or Plasma 2025-07-15 23:20:07 [facility] 110 U/L ([facility]) Result panel 304 Troponin I.cardiac [Mass/volume] in Serum or Plasma 2025-07-15 23:20:07 [facility] 0.018 ng/mL ([facility]) Result panel 305 Natriuretic peptide.B prohormone N-Terminal [Mass/volume] in Serum or Plasma 2025-07-15 23:20:07 [facility] 4420 pg/mL ([facility]) Result panel 306 Sodium [Moles/volume] in Serum or Plasma 2025-07-15 23:20:07 [facility] 138 mmol/L ([facility]) Result panel 307 Potassium [Moles/volume] in Serum or Plasma 2025-07-15 23:20:07 [facility] 4.0 mmol/L ([facility]) Result panel 308 Chloride [Moles/volume] in Serum or Plasma 2025-07-15 23:20:07 [facility] 106 mmol/L ([facility]) Result panel 309 Carbon dioxide, total [Moles/volume] in Serum or Plasma 2025-07-15 23:20:07 [facility] 26 mmol/L (formerly [facility]) Result panel 310 Urea nitrogen [Mass/volume] in Serum or Plasma 2025-07-15 23:20:07 [facility] 29 mg/dL ([facility]) Result panel 311 Creatinine [Mass/volume] in Serum or Plasma 2025-07-15 23:20:07 [facility] 1.18 mg/dL ([facility]) Result panel 312 Glomerular filtration rate (GFR) estimation 2025-07-15 23:20:07 [facility] > 60 mL/min (missing) (missing) Result panel 313 Hemoglobin 2025-07-15 23:20:07 [facility] 9.5 g/d L (missing) Result panel 314 BUN/creatinine ratio 2025-07-15 23:20:07 [facility] 24. 6 (missing) (missing) Result panel 315 Glucose [Mass/volume] in Ser um or Plasma 2025-07-15 23:20:07 [facility] 88 mg/dL ([facility]) Result panel 316 Lactate [Mass/volume] in Serum or Plasma 2025-07-15 23:20:07 [facility] 1.4 mmol/L ([facility]) Result panel 317 Calcium [Mass/volume] in Serum or Plasma 2025-07-15 23:20:07 [facility] 8.6 mg/dL ([facility]) Result panel 318 Bilirubin.total [Mass/volume ] in Serum or Plasma 2025-07-15 23:20:07 [facility] 0.6 mg/dL (missing) Result panel 319 Aspartate aminotransferase [Enzymatic activity/volume] in Serum or Plasma 2025-07-15 23:20:07 [facility] 34 IU/L ([facility]) Result panel 320 Alanine aminotransferase [Enzymatic activity/volume] in Serum or Plasma 2025-07-15 23:20:07 [facility] 21 IU/L ([facility]) Result panel 321 Alkaline phosphatase [Enzyma tic activity/volume] in Serum or Plasma 2025-07-15 23:20:07 [facility] 64 U/L ([facility]) Result panel 322 Protein total ser/plas 2025-07-15 23:20:07 [facility] 7 .4 g/dL (missing) Result panel 323 Albumin [Mass/volume] in Ser um or Plasma 2025-07-15 23:20:07 [facility] 3.8 g/dL ([facility]) Result panel 324 Hematocrit 2025-07-15 23:20:07 [facility] 29.8 % (missing) Result panel 325 Globulin [Mass/volume] in Serum by calculation 2025-07-15 23:20:07 [facility] 3.6 g/dL (missing) Result panel 326 Albumin/Globulin [Mass Ratio] in Serum or Plasma 2025-07-15 23:20:07 [facility] 1.1 (miss ing) (missing) Result panel 327 Lipase [Enzymatic activity/volume] in Serum or Plasma 2025-07-15 23:20:07 [facility] 38 U/L (miss ing) Result panel 328 Procalcitonin [Mass/volume] in Serum or Plasma 2025-07-15 23:20:07 [facility] 0.350 ng/mL (missing) Result panel 329 MCV (mean corpuscular volume ) determination 2025-07-15 23:20:07 [facility] 83.7 fL (mis sing) Result panel 330 Mean corpuscular hemoglobin (MCH) determination 2025-07-15 23:20:07 [facility] 26.7 PG (missing) Result panel 331 Mean corpuscular hemoglobin concentration (MCHC) determination 2025-07-15 23:20:07 [facility] 31.9 % (mis sing) Result panel 332 Red cell distribution width determination 2025-07-15 23:20:07 [facility] 17.2 % (mis sing) Result panel 333 Platelet count 2025-07-15 23:20:07 [facility] 304 X10^3/uL (missing) Result panel 334 X-ray report 2025-07-15 23:44 [facility] (missing) (mis sing) (missing) Result panel 335 Estimated Glomerular Filt Rate 2025-07-15 23:46 [facility] > 60 ml/min Reported eGFR is based the CKD-EPI 2020 equation that does not use a race coefficient. An eGFR below 60 mL/min/1.73m2 suggests that some kidney damage has occurred, and indicative of chronic kidney disease if persisting greater than 3 months. An eGFR less than 15 is indicative of kidney failure. Bilirubin Total 2025-07-15 23:46 [facility] 0.6 mg/dl (missing) Albumin Globulin Ratio 2025-07-15 23:46 [facility] 1.1 (missing) (missing) Creatinine 2025-07-15 23:46 [facility] 1.18 mg/dl (missing) Lactate (Lactic Acid) 2025-07-15 23:46 [facility] 1.4 mmol/l Yes/No query for Sepsis Lactate Rule Y Chloride 2025-07-15 23:46 [facility] 106 mmol/l (missing) Creatine Kinase 2025-07-15 23:46 [facility] 110 u/l (missing) Sodium 2025-07-15 23:46 [facility] 138 mmol/l (missing) Alanine Aminotransferase 2025-07-15 23:46 [facility] 21 iu/l (missing) BUN Creatinine Ratio 2025-07-15 23:46 [facility] 24.6 (missing) (missing) Carbon Dioxide 2025-07-15 23:46 [facility] 26 mmol/l (missing) Blood Urea Nitrogen 2025-07-15 23:46 [facility] 29 mg/dl (missing) Globulin 2025-07-15 23:46 [facility] 3.6 g/dl (missing) Albumin 2025-07-15 23:46 [facility] 3.8 g/dl (missing) Aspartate Aminotransferase 2025-07-15 23:46 [facility] 34 iu/l SLIGHTLY HEMOLYZED SPECIMEN Lipase 2025-07-15 23:46 [facility] 38 u/l (missing) Potassium 2025-07-15 23:46 [facility] 4.0 mmol/l SLIGHTLY HEMOLYZED SPECIMEN Alkaline Phosphatase 2025-07-15 23:46 [facility] 64 u/l SLIGHTLY HEMOLYZED SPECIMEN Total Protein 2025-07-15 23:46 [facility] 7.4 g/dl (missing) Calcium 2025-07-15 23:46 [facility] 8.6 mg/dl (missing) Glucose 2025-07-15 23:46 [facility] 88 mg/dl (missing) Result panel 336 Basophils Percent Auto 2025-07-15 23:49 [facility] 0.5 % (missing) Basophils Absolute Auto 2025-07-15 23:49 [facility] 100 /ul (missing) White Blood Cell Count 2025-07-15 23:49 [facility] 11.1 x10 3/ul (missing) Monocytes Percent Auto 2025-07-15 23:49 [facility] 11.6 % (missing) Monocytes Absolute Auto 2025-07-15 23:49 [facility] 130 0 /ul (missing) Red Cell Distribution Width 2025-07-15 23:49 [facility] 17.2 % (missing) Mean Corpuscular Hemoglobin 2025-07-15 23:49 [facility] 26.7 pg (missing) Hematocrit 2025-07-15 23:49 [facility] 29.8 % (missing) Red Blood Cell Count 2025-07-15 23:49 [facility] 3.57 x10 6/ul (missing) Eosinophils Percent Auto 2025-07-15 23:49 [facility] 3. 9 % (missing) Platelet Count 2025-07-15 23:49 [facility] 304 x1 0 3/ul (missing) Mean Corpuscular HGB Conc 2025-07-15 23:49 [facility] 3 1.9 % (missing) Eosinophils Absolute Auto 2025-07-15 23:49 [facility] 4 00 /ul (missing) Neutrophils Percent Auto 2025-07-15 23:49 [facility] 75 .9 % (missing) Lymphocytes Percent Auto 2025-07-15 23:49 [facility] 8. 1 % (missing) Mean Corpuscular Volume 2025-07-15 23:49 [facility] 83. 7 fl (missing) Neutrophils Absolute Auto 2025-07-15 23:49 [facility] 8 400 /ul (missing) Hemoglobin 2025-07-15 23:49 [facility] 9.5 g/dl (missing) Lymphocytes Absolute Auto 2025-07-15 23:[address] [place] [address] 9 00 /ul (missing) Result panel 337 NT-proBNP (BNP-Adult 18+) 2025-07-15 23:53 [facility] 4 420 pg/ml Social History date description facility 2025-07-15 00:00 Never smoked tobacco (finding) [facility] Vital Signs date measurement value units 2025-07-15 00:00 BMI 17.9 kg/m2 2025-07-15 00:00 height_metric 182.88 cm 2025-07-15 00:00 weight_metric 59.87 kg 2025-07-16 00:00 BP_diastolic 78 mmHg 2025-07-16 00:00 BP_systolic 142 mmHg 2025-07-16 00:00 heart_rate 104 /min 2025-07-16 00:00 o2_saturation 98 % 2025-07-16 00:00 respiration_rate 13 /min 2025-07-16 00:00 temperature_standard 98.8 F
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
[2025-07-17] MEDS: MEROPENEM 1 GM in SODIUM CHLORIDE 0.9% MINIBAG 100 ML IV STA (15:39)
[2025-07-17] MEDS: SODIUM CHLORIDE FLUSH 0.9% 10 ML SYRINGE IVP SCH (16:52)
--- NOTE | 2025-07-17 17:52 | PHARMACY PROGRESS NOTE ---
Best Possible Medication History Admit Date and Time: 07/17/25 1332 Home Medications Medication Instructions Recorded Confirmed Type ipratropium 0.5 mg-albuterol 3 mg 3 ml PO Q4H PRN Asth ma 12/20/23 07/17/25 History (2.5 mg base)/3 mL nebulization soln acetaminophen 325 mg tablet 650 mg (2 x 325 mg) PO Q4H R PRN 01/10/24 01/22/24 Rx Pain Or Fever > 38c (100.4f) fluticasone propionate 50 1 spray intranasal BID aller gic 01/10/24 07/17/25 Rx mcg/actuation nasal rhinitis ##0 spray,suspension ipratropium 20 mcg-albuterol 100 1 puff inhalation QID copd ##0 01/10/24 07/17/25 Rx mcg/actuation mist for inhalation (Combivent Respimat) montelukast 10 mg tablet 10 mg PO QPM copd ##0 07/17/25 Rx bisacodyl 10 mg rectal suppository 1 appful CA DAILY P RN Constipation 01/13/24 07/17/25 History metoprolol tartrate 25 mg tablet 50 mg PO TID 01/13/24 07/17/25 History naloxone 4 mg/actuation nasal spray 1 spray IN DAILY P RN As Needed Per 01/15/24 07/17/25 History Provider Orders sennosides 8.6 mg tablet (Senna 8.6 mg PO BID PRN Cons tipation 01/22/24 07/17/25 History Lax) albuterol sulfate 2.5 mg/3 mL 0.41 mg inhalation TID 0 07/17/25 07/17/25 History (0.083 %) solution for nebulization apixaban 5 mg tablet (Eliquis) 5 mg PO BID 07/17/25 History ferrous sulfate 325 mg (65 mg 325 mg PO Q OTHER DAY ir on 07/17/25 07/17/25 History iron) tablet deficiency fluticasone fur. 200 mcg-umeclid 1 inh inhalation CHELE Y 07/17/25 07/17/25 History 62.5 mcg-vilant 25 mcg inhalat.powder (Trelegy Ellipta) gabapentin 300 mg capsule 600 mg PO TID 07/17/2507/17 History lidocaine 4 % topical patch 1 patch topical DAILY PRN pain 07/17/25 07/17/25 History losartan 25 mg tablet 12.5 mg PO DAILY 07/17/25 History melatonin 5 mg tablet 5 mg PO HS 07/17/25 07/17/25 History methocarbamol 500 mg tablet 500 mg PO Q6H PRN muscle s pasm 07/17/25 07/17/25 History metoclopramide HCl 10 mg tablet 5 mg PO TID 07/17/25 0 07/17/25 History nystatin 100,000 unit/gram topical 1 applic topical TI D PRN rash 07/17/25 07/17/25 History cream ondansetron HCl 4 mg tablet 4 mg PO Q6H PRN nausea and vomiting 07/17/25 07/17/25 History oxycodone 5 mg tablet 5 mg PO Q4H PRN pain 5 07/17/25 History prednisone 10 mg tablet 10 mg PO DAILY 07/17/2506/29 History Processed by: Pharmacy Medications reviewed in ED?: No Medication History completed: Yes Patient Interview: Pt unable to participate Secondary Source(s): Insurance records and Previous admit records (discharge from SNF paperwork from outside health system. Paperwork date 06/23/25) [facility] Statement: As the person ultimately responsible for medication therapy, providers are able to order a medication from an existing home medication list in [facility] via the "Reconcile Routine" prior to Confirmation of that medication by clerical support. Such practice is discouraged except when the physician, in their clinical judgment, deems that a medical need exists for a medication without regard to previous use.
[2025-07-17] MEDS: METOPROLOL 5 MG/5 ML VIAL IVP PRN (18:57)
[2025-07-17] MEDS: ONDANSETRON 4 MG/2 ML VIAL IVP PRN (18:59)
[2025-07-17] MEDS: MEROPENEM 1 GM VIAL IVP SCH (19:09)
[2025-07-17] MEDS: HYDROmorphone 0.5 MG/0.5 ML SYRINGE IVP PRN (19:09)
[2025-07-17] MEDS: METOPROLOL TARTRATE 50 MG TABLET PO SCH (21:35)
[2025-07-17] MEDS: METOCLOPRAMIDE 10 MG TABLET PO SCH (21:35)
[2025-07-17] MEDS: MELATONIN 3 MG TABLET PO SCH (21:36)
[2025-07-17] MEDS: GABAPENTIN 300 MG CAPSULE PO SCH (21:36)
[2025-07-17] MEDS: APIXABAN 5 MG TABLET PO SCH (21:36)
[2025-07-17] MEDS ORDERED: MEROPENEM 1 GM in SODIUM CHLORIDE 0.9% MINIBAG 100 ML IV SCH (22:00)
[2025-07-18] MEDS: OLANZapine 10 MG VIAL IM ONE (01:32)
[2025-07-18 06:27] LABS: HCT - HEMATOCRIT 31.6 % (42.0-52.0); HGB - HEMOGLOBIN 9.3 g/dL (14.0-18.0); MEAN PLATELET VOLUME 8.9 fL (7.4-11.4); NRBC ABSOLUTE COUNT (AUTO) 0.00 x10^3/uL; NUCLEATED RED BLOOD CELLS AUTO 0.0 /100WBC; PLT - PLATELET COUNT 284 10^3/uL (130-450); RED CELL DISTRIBUTION WIDTH 16.3 % (12.0-15.0)
[2025-07-18] MEDS: SODIUM CHLORIDE FLUSH 0.9% 10 ML SYRINGE IVP PRN (06:46)
[2025-07-18 06:49] LABS: ALT ALANINE AMINOTRANSFERASE 11.0 IU/L (10-60); AST ASPARTATE AMINOTRANSFERASE 10.0 IU/L (10-42); BUN - BLOOD UREA NITROGEN 14.0 mg/dL (6-20); CARBON DIOXIDE - CO2 25.0 mmol/L (21-32); CREATININE 0.9 mg/dL (0.6-1.3); GFR - MDRD 86.0 (>89); PHOSPHORUS 3.4 mg/dL (2.5-5.0)
--- NOTE | 2025-07-18 07:12 | PROVIDER PROGRESS NOTE ---
Subjective Prog Note Date Prog Note Date: 07/18/25 Prog Note Time: 07:10 Subjective Pt reports feeling: No change Subjective: Patient is stabilizing overnight. His blood pressures remained stable he remains hemodynamically stable. His heart rate has remained in the 80s to 90s. He had some agitation overnight requiring multiple pushes of Dilaudid for pain. He eventually received IM Zyprexa and did sleep some. He was sleeping on my initial evaluation this morning. I saw him later this morning, and he is wanting to get up out of bed. He does not say specifically where he wants to go. He denies any pains. Denies abdominal pain, chest pain, dyspnea. He is breathing through pursed lips. His lungs are clear to auscultation. He has no cough or fever. His labs were reviewed, his hemoglobin is 9.3. The remainder of his CBC is normal. Particularly no leukocytosis. His metabolic profile is fairly unremarkable. Kidney function is stable. Very low albumin and total protein. His troponin is downtrending. Current Medications Current Medications Current Medications: Current Medications Generic Name Dose Route Start Last Admin Trade Name Freq PRN Reason Stop Dose Admin Acetaminophen 650 mg 07/17/25 14:54 Acetaminophen 325 Mg Tablet PEG Q4HR PRN Pain 1 to 4, or Fever Albuterol/Ipratropium 3 ml 07/17/25 19:13 Ipratropium/Albuterol 3 Ml Neb INH RTQID PRN Shortness of Air/Wheezing Apixaban 5 mg 07/17/25 21:00 07/17/25 21:36 Apixaban 5 Mg Tablet PO 5 mg BID DARCIE Administration Budesonide 0.5 mg 07/18/25 07:00 Budesonide 0.5 Mg/2 Ml Neb INH RTBID DARCIE Formoterol Fumarate 20 mcg 07/18/25 07:00 Formoterol Fumarate Neb 20 Mcg/2 Ml INH RTBID DARCIE Gabapentin 600 mg 07/17/25 22:00 07/18/25 06:46 Gabapentin 300 Mg Capsule PO 600 mg TID DARCIE Administration Hydromorphone HCl 0.5 mg 07/17/25 18:56 07/18/25 06:45 Hydromorphone 0.5 Mg/0.5 Ml Syringe IVP 0.5 mg Q2H PRN Administration Severe Pain (Level 7-10) Ipratropium [place] 0.5 mg 07/18/25 07:00 Ipratropium 0.2 Mg/Ml Neb INH RTQID DARCIE Melatonin 6 mg 07/17/25 21:00 07/17/25 21:36 Melatonin 3 Mg Tablet PO 6 mg QPM DARCIE Administration Meropenem 1 gm 07/17/25 19:00 07/18/25 03:33 Meropenem 1 Gm Vial IVP 1 gm Q8H DARCIE Administration Methocarbamol 500 mg 07/17/25 19:10 Methocarbamol 500 Mg Tablet PO Q6H PRN muscle spasm Metoclopramide HCl 5 mg 07/17/25 22:00 07/18/25 06:45 Metoclopramide 10 Mg Tablet PO 5 mg TID DARCIE Administration Metoprolol Tartrate 5 mg 07/17/25 18:50 07/17/25 18:57 Metoprolol 5 Mg/5 Ml Vial IVP 5 mg Q6H PRN Administration Tachycardia Metoprolol Tartrate 50 mg 07/17/25 22:00 07/18/25 06:46 Metoprolol Tartrate 50 Mg Tablet PO 50 mg TID DARCIE Administration Ondansetron HCl 4 mg 07/17/25 14:54 07/17/25 18:59 Ondansetron 4 Mg/2 Ml Vial IVP 4 mg Q6HR PRN Administration Nausea / Vomiting Prednisone 40 mg 07/17/25 20:00 07/17/25 21:35 Prednisone 20 Mg Tablet PEG 40 mg DAILYWM DARCIE Administration Sodium Chloride 10 ml 07/17/25 14:54 07/18/25 06:46 Sodium Chloride Flush 0.9% 10 Ml Syringe IVP 10 ml PRN PRN Administration NEEDED PER PROVIDER ORDERS Sodium Chloride 10 ml 07/17/25 17:00 07/18/25 00:28 Sodium Chloride Flush 0.9% 10 Ml Syringe IVP 10 ml 0100,0900,1700 DARCIE Administration Sterile Water 20 ml 07/17/25 19:00 07/18/25 03:33 Water For Injection,Sterile 10 Ml Vial MC 20 ml Q8H DARCIE Administration Objective Vital Signs/Intake & Output Reviewed Vital Signs: Yes Vital Signs: Vital Signs x48h Temp Pulse Pulse Resp BP BP Pulse Ox 07/18/25 06:46 94 107/64 07/18/25 00:05 07/18/25 00:05 36.9 C 92 16 120/68 96 O2 Flow Rate 07/18/25 06:46 07/18/25 00:05 2 07/18/25 00:05 2 Intake & Output: Intake & Output 07/15/25 07/16/25 07/17/25 07/18/25 23:59 23:59 23:59 23:59 Intake Total 1340 / 1340 888 / 888 Output Total 200 / 200 Balance 1140 / 1140 888 / 888 Weight (kg) 61.1 kg 59.5 kg Objective Comments/Other: GEN: No acute distress HEENT: NC/AT, normal appearance of external ears and nose. Hearing baseline. Cardiac: Regular rhythm with rate in the 90s. No murmurs appreciated. Pulm: No wheezing or significant cough. No rhonchi appreciated. Breathing through pursed lips. Abdomen: Soft, nontender. G-tube is in place with no surrounding erythema or discharge. Extremities: Ecchymosis on the upper and lower extremities. Some sarcopenia in the lower extremities. He is moving all 4 extremities equally. Neuro: Face symmetric, CN II through XII intact grossly. No focal neurologic deficits. Psych: Mood euthymic. Affect is appropriate. He is perseverant on getting out of bed. Lab Results 07/18/25 06:17 07/18/25 06:17 Other Labs: Lab Results x24hrs 07/18/25 07/18/25 07/18/25 Range/Units 06:18 06:17 00:05 WBC 5.7 (4.8-10.8) x10^3/uL RBC 3.44 L (4.70-6.10) 10^6/uL Hgb 9.3 L (14.0-18.0) g/dL Hct 31.6 L (42.0-52.0) % MCV 91.9 (80.0-94.0) fL MCH 27.0 (27.0-31.0) pg MCHC 29.4 L (32.0-36.0) g/dL RDW 16.3 H (12.0-15.0) % Plt Count 284 (130-450) 10^3/uL MPV 8.9 (7.4-11.4) fL Neut # (Auto) 5.5 (1.5-6.6) 10^3/uL Lymph # (Auto) 0.1 L (1.5-3.5) 10^3/uL Bledsoe # (Auto) 0.1 (0.0-1.0) 10^3/uL Eos # (Auto) 0.0 (0.0-0.7) 10^3/uL Baso # (Auto) 0.0 (0.0-0.1) 10^3/uL Absolute Nucleated RBC 0.00 x10^3/uL Nucleated RBC % 0.0 /100WBC Sodium 139 (135-145) mmol/L Potassium 4.2 (3.5-4.5) mmol/L Chloride 107 (101-111) mmol/L Carbon Dioxide 25 (21-32) mmol/L Anion Gap 7.0 (6-13) BUN 14 (6-20) mg/dL Creatinine 0.9 (0.6-1.3) mg/dL Estimated GFR (MDRD) 86 L (>89) Glucose 290 H (74-104) mg/dL POC Whole Bld Glucose 259 160 (70-100) mg/dL Calcium 8.6 (8.5-10.3) mg/dL Phosphorus 3.4 (2.5-5.0) mg/dL Magnesium 1.9 (1.7-2.3) mg/dL Total Bilirubin 0.2 (0.2-1.0) mg/dL AST 10 (10-42) IU/L ALT 11 (10-60) IU/L Alkaline Phosphatase 58 (42-121) IU/L Troponin I High Sens 95.6 H* (2.3-19.7) ng/L B-Natriuretic Peptide (5-100) pg/mL Total Protein 5.9 L (6.4-8.9) g/dL Albumin 2.9 L (3.2-5.5) g/dL Globulin 3.0 (2.1-4.2) g/dL Albumin/Globulin Ratio 1.0 (1.0-2.2) Prealbumin 7 L (17-34) mg/dL Nasal Adenovirus (PCR) Nasal B. parapertussis DNA (PCR) Nasal Coronavir 229E PCR Nasal Coronavir HKU1 PCR Nasal Coronavir NL63 PCR Nasal Coronavir OC43 PCR Nasal Enterovir/Rhinovir PCR Nasal Influenza B PCR Nasal Influenza A PCR Nasal Parainfluen 1 PCR Nasal Parainfluen 2 PCR Nasal Parainfluen 3 PCR Nasal Parainfluen 4 PCR Nasal RSV (PCR) Nasal B.pertussis DNA PCR Nasal C.pneumoniae (PCR) Sudheer Human Metapneumo PCR Nasal M.pneumoniae (PCR) Nasal SARS-CoV-2 (PCR) Urine Opiates Screen (NEGATIVE) Ur Buprenorphine Scrn (NEGATIVE) Ur Oxycodone Screen (NEGATIVE) Urine Methadone Screen (NEGATIVE) Urine Fentanyl Screen (NEGATIVE) Ur Barbiturates Screen (NEGATIVE) Ur Tricyclics Screen (NEGATIVE) Ur Phencyclidine Scrn (NEGATIVE) Ur Amphetamine Screen (NEGATIVE) U Methamphetamines Scrn (NEGATIVE) U Benzodiazepines Scrn (NEGATIVE) Urine Cocaine Screen (NEGATIVE) U Cannabinoids Screen (NEGATIVE) Ur Drug Screen Comment 07/17/25 07/17/25 07/17/25 Range/Units 19:07 15:18 13:52 WBC (4.8-10.8) x10^3/uL RBC (4.70-6.10) 10^6/uL Hgb (14.0-18.0) g/dL Hct (42.0-52.0) % MCV (80.0-94.0) fL MCH (27.0-31.0) pg MCHC (32.0-36.0) g/dL RDW (12.0-15.0) % Plt Count (130-450) 10^3/uL MPV (7.4-11.4) fL Neut # (Auto) (1.5-6.6) 10^3/uL Lymph # (Auto) (1.5-3.5) 10^3/uL Bledsoe # (Auto) (0.0-1.0) 10^3/uL Eos # (Auto) (0.0-0.7) 10^3/uL Baso # (Auto) (0.0-0.1) 10^3/uL Absolute Nucleated RBC x10^3/uL Nucleated RBC % /100WBC Sodium (135-145) mmol/L Potassium (3.5-4.5) mmol/L Chloride (101-111) mmol/L Carbon Dioxide (21-32) mmol/L Anion Gap (6-13) BUN (6-20) mg/dL Creatinine (0.6-1.3) mg/dL Estimated GFR (MDRD) (>89) Glucose (74-104) mg/dL POC Whole Bld Glucose 102 (70-100) mg/dL Calcium (8.5-10.3) mg/dL Phosphorus (2.5-5.0) mg/dL Magnesium (1.7-2.3) mg/dL Total Bilirubin (0.2-1.0) mg/dL AST (10-42) IU/L ALT (10-60) IU/L Alkaline Phosphatase (42-121) IU/L Troponin I High Sens 177.6 H* 204.3 H* (2.3-19.7) ng/L B-Natriuretic Peptide (5-100) pg/mL Total Protein (6.4-8.9) g/dL Albumin (3.2-5.5) g/dL Globulin (2.1-4.2) g/dL Albumin/Globulin Ratio (1.0-2.2) Prealbumin (17-34) mg/dL Nasal Adenovirus (PCR) Nasal B. parapertussis DNA (PCR) Nasal Coronavir 229E PCR Nasal Coronavir HKU1 PCR Nasal Coronavir NL63 PCR Nasal Coronavir OC43 PCR Nasal Enterovir/Rhinovir PCR Nasal Influenza B PCR Nasal Influenza A PCR Nasal Parainfluen 1 PCR Nasal Parainfluen 2 PCR Nasal Parainfluen 3 PCR Nasal Parainfluen 4 PCR Nasal RSV (PCR) Nasal B.pertussis DNA PCR Nasal C.pneumoniae (PCR) Sudheer Human Metapneumo PCR Nasal M.pneumoniae (PCR) Nasal SARS-CoV-2 (PCR) Urine Opiates Screen (NEGATIVE) Ur Buprenorphine Scrn (NEGATIVE) Ur Oxycodone Screen (NEGATIVE) Urine Methadone Screen (NEGATIVE) Urine Fentanyl Screen (NEGATIVE) Ur Barbiturates Screen (NEGATIVE) Ur Tricyclics Screen (NEGATIVE) Ur Phencyclidine Scrn (NEGATIVE) Ur Amphetamine Screen (NEGATIVE) U Methamphetamines Scrn (NEGATIVE) U Benzodiazepines Scrn (NEGATIVE) Urine Cocaine Screen (NEGATIVE) U Cannabinoids Screen (NEGATIVE) Ur Drug Screen Comment 07/17/25 07/17/25 07/17/25 Range/Units 11:31 10:20 09:42 WBC (4.8-10.8) x10^3/uL RBC (4.70-6.10) 10^6/uL Hgb (14.0-18.0) g/dL Hct (42.0-52.0) % MCV (80.0-94.0) fL MCH (27.0-31.0) pg MCHC (32.0-36.0) g/dL RDW (12.0-15.0) % Plt Count (130-450) 10^3/uL MPV (7.4-11.4) fL Neut # (Auto) (1.5-6.6) 10^3/uL Lymph # (Auto) (1.5-3.5) 10^3/uL [place] # (Auto) (0.0-1.0) 10^3/uL Eos # (Auto) (0.0-0.7) 10^3/uL Baso # (Auto) (0.0-0.1) 10^3/uL Absolute Nucleated RBC x10^3/uL Nucleated RBC % /100WBC Sodium (135-145) mmol/L Potassium (3.5-4.5) mmol/L Chloride (101-111) mmol/L Carbon Dioxide (21-32) mmol/L Anion Gap (6-13) BUN (6-20) mg/dL Creatinine (0.6-1.3) mg/dL Estimated GFR (MDRD) (>89) Glucose (74-104) mg/dL POC Whole Bld Glucose 88 137 (70-100) mg/dL Calcium (8.5-10.3) mg/dL Phosphorus (2.5-5.0) mg/dL Magnesium (1.7-2.3) mg/dL Total Bilirubin (0.2-1.0) mg/dL AST (10-42) IU/L ALT (10-60) IU/L Alkaline Phosphatase (42-121) IU/L Troponin I High Sens 234.2 H* (2.3-19.7) ng/L B-Natriuretic Peptide (5-100) pg/mL Total Protein (6.4-8.9) g/dL Albumin (3.2-5.5) g/dL Globulin (2.1-4.2) g/dL Albumin/Globulin Ratio (1.0-2.2) Prealbumin (17-34) mg/dL Nasal Adenovirus (PCR) Nasal B. parapertussis DNA (PCR) Nasal Coronavir 229E PCR Nasal Coronavir HKU1 PCR Nasal Coronavir NL63 PCR Nasal Coronavir OC43 PCR Nasal Enterovir/Rhinovir PCR Nasal Influenza B PCR Nasal Influenza A PCR Nasal Parainfluen 1 PCR Nasal Parainfluen 2 PCR Nasal Parainfluen 3 PCR Nasal Parainfluen 4 PCR Nasal RSV (PCR) Nasal B.pertussis DNA PCR Nasal C.pneumoniae (PCR) Sudheer Human Metapneumo PCR Nasal M.pneumoniae (PCR) Nasal SARS-CoV-2 (PCR) Urine Opiates Screen (NEGATIVE) Ur Buprenorphine Scrn (NEGATIVE) Ur Oxycodone Screen (NEGATIVE) Urine Methadone Screen (NEGATIVE) Urine Fentanyl Screen (NEGATIVE) Ur Barbiturates Screen (NEGATIVE) Ur Tricyclics Screen (NEGATIVE) Ur Phencyclidine Scrn (NEGATIVE) Ur Amphetamine Screen (NEGATIVE) U Methamphetamines Scrn (NEGATIVE) U Benzodiazepines Scrn (NEGATIVE) Urine Cocaine Screen (NEGATIVE) U Cannabinoids Screen (NEGATIVE) Ur Drug Screen Comment 07/17/25 07/17/25 07/17/25 Range/Units 09:31 09:28 05:38 WBC (4.8-10.8) x10^3/uL RBC (4.70-6.10) 10^6/uL Hgb (14.0-18.0) g/dL Hct (42.0-52.0) % MCV (80.0-94.0) fL MCH (27.0-31.0) pg MCHC (32.0-36.0) g/dL RDW (12.0-15.0) % Plt Count (130-450) 10^3/uL MPV (7.4-11.4) fL Neut # (Auto) (1.5-6.6) 10^3/uL Lymph # (Auto) (1.5-3.5) 10^3/uL Bledsoe # (Auto) (0.0-1.0) 10^3/uL Eos # (Auto) (0.0-0.7) 10^3/uL Baso # (Auto) (0.0-0.1) 10^3/uL Absolute Nucleated RBC x10^3/uL Nucleated RBC % /100WBC Sodium (135-145) mmol/L Potassium (3.5-4.5) mmol/L Chloride (101-111) mmol/L Carbon Dioxide (21-32) mmol/L Anion Gap (6-13) BUN (6-20) mg/dL Creatinine (0.6-1.3) mg/dL Estimated GFR (MDRD) (>89) Glucose (74-104) mg/dL POC Whole Bld Glucose 52 (70-100) mg/dL Calcium (8.5-10.3) mg/dL Phosphorus (2.5-5.0) mg/dL Magnesium (1.7-2.3) mg/dL Total Bilirubin (0.2-1.0) mg/dL AST (10-42) IU/L ALT (10-60) IU/L Alkaline Phosphatase (42-121) IU/L Troponin I High Sens 203.8 H* (2.3-19.7) ng/L B-Natriuretic Peptide (5-100) pg/mL Total Protein (6.4-8.9) g/dL Albumin (3.2-5.5) g/dL Globulin (2.1-4.2) g/dL Albumin/Globulin Ratio (1.0-2.2) Prealbumin (17-34) mg/dL Nasal Adenovirus (PCR) Nasal B. parapertussis DNA (PCR) Nasal Coronavir 229E PCR Nasal Coronavir HKU1 PCR Nasal Coronavir NL63 PCR Nasal Coronavir OC43 PCR Nasal Enterovir/Rhinovir PCR Nasal Influenza B PCR Nasal Influenza A PCR Nasal Parainfluen 1 PCR Nasal Parainfluen 2 PCR Nasal Parainfluen 3 PCR Nasal Parainfluen 4 PCR Nasal RSV (PCR) Nasal B.pertussis DNA PCR Nasal C.pneumoniae (PCR) Sudheer Human Metapneumo PCR Nasal M.pneumoniae (PCR) Nasal SARS-CoV-2 (PCR) Urine Opiates Screen NEGATIVE (NEGATIVE) Ur Buprenorphine Scrn NEGATIVE (NEGATIVE) Ur Oxycodone Screen POSITIVE H (NEGATIVE) Urine Methadone Screen NEGATIVE (NEGATIVE) Urine Fentanyl Screen Negative (NEGATIVE) Ur Barbiturates Screen NEGATIVE (NEGATIVE) Ur Tricyclics Screen NEGATIVE (NEGATIVE) Ur Phencyclidine Scrn NEGATIVE (NEGATIVE) Ur Amphetamine Screen NEGATIVE (NEGATIVE) U Methamphetamines Scrn NEGATIVE (NEGATIVE) U Benzodiazepines Scrn NEGATIVE (NEGATIVE) Urine Cocaine Screen NEGATIVE (NEGATIVE) U Cannabinoids Screen NEGATIVE (NEGATIVE) Ur Drug Screen Comment CUTOFF CONC BELOW: 09/19/25 Range/Units 05:34 WBC (4.8-10.8) x10^3/uL RBC (4.70-6.10) 10^6/uL Hgb (14.0-18.0) g/dL Hct (42.0-52.0) % MCV (80.0-94.0) fL MCH (27.0-31.0) pg MCHC (32.0-36.0) g/dL RDW (12.0-15.0) % Plt Count (130-450) 10^3/uL MPV (7.4-11.4) fL Neut # (Auto) (1.5-6.6) 10^3/uL Lymph # (Auto) (1.5-3.5) 10^3/uL Bledsoe # (Auto) (0.0-1.0) 10^3/uL Eos # (Auto) (0.0-0.7) 10^3/uL Baso # (Auto) (0.0-0.1) 10^3/uL Absolute Nucleated RBC x10^3/uL Nucleated RBC % /100WBC Sodium (135-145) mmol/L Potassium (3.5-4.5) mmol/L Chloride (101-111) mmol/L Carbon Dioxide (21-32) mmol/L Anion Gap (6-13) BUN (6-20) mg/dL Creatinine (0.6-1.3) mg/dL Estimated GFR (MDRD) (>89) Glucose (74-104) mg/dL POC Whole Bld Glucose (70-100) mg/dL Calcium (8.5-10.3) mg/dL Phosphorus (2.5-5.0) mg/dL Magnesium (1.7-2.3) mg/dL Total Bilirubin (0.2-1.0) mg/dL AST (10-42) IU/L ALT (10-60) IU/L Alkaline Phosphatase (42-121) IU/L Troponin I High Sens (2.3-19.7) ng/L B-Natriuretic Peptide 423 H (5-100) pg/mL Total Protein (6.4-8.9) g/dL Albumin (3.2-5.5) g/dL Globulin (2.1-4.2) g/dL Albumin/Globulin Ratio (1.0-2.2) Prealbumin (17-34) mg/dL Nasal Adenovirus (PCR) NOT DETECTED Nasal B. parapertussis DNA (PCR) NOT DETECTED Nasal Coronavir 229E PCR NOT DETECTED Nasal Coronavir HKU1 PCR NOT DETECTED Nasal Coronavir NL63 PCR NOT DETECTED Nasal Coronavir OC43 PCR NOT DETECTED Nasal Enterovir/Rhinovir PCR NOT DETECTED Nasal Influenza B PCR NOT DETECTED Nasal Influenza A PCR NOT DETECTED Nasal Parainfluen 1 PCR NOT DETECTED Nasal Parainfluen 2 PCR NOT DETECTED Nasal Parainfluen 3 PCR NOT DETECTED Nasal Parainfluen 4 PCR NOT DETECTED Nasal RSV (PCR) NOT DETECTED Nasal B.pertussis DNA PCR NOT DETECTED Nasal C.pneumoniae (PCR) NOT DETECTED Sudheer Human Metapneumo PCR NOT DETECTED Nasal M.pneumoniae (PCR) NOT DETECTED Nasal SARS-CoV-2 (PCR) NOT DETECTED Urine Opiates Screen (NEGATIVE) Ur Buprenorphine Scrn (NEGATIVE) Ur Oxycodone Screen (NEGATIVE) Urine Methadone Screen (NEGATIVE) Urine Fentanyl Screen (NEGATIVE) Ur Barbiturates Screen (NEGATIVE) Ur Tricyclics Screen (NEGATIVE) Ur Phencyclidine Scrn (NEGATIVE) Ur Amphetamine Screen (NEGATIVE) U Methamphetamines Scrn (NEGATIVE) U Benzodiazepines Scrn (NEGATIVE) Urine Cocaine Screen (NEGATIVE) U Cannabinoids Screen (NEGATIVE) Ur Drug Screen Comment Diagnostic Imaging Diagnostic Imaging Results: positive Final report reviewed Assessment/Plan Problem List (1) Altered mental status: Impression: Patient continues to mentate appropriately. Unclear the etiology of his encephalopathy. Unclear the chronicity of his encephalopathy. However it is unclear what his baseline is. He is oriented to self only. He is redirectable but ruminative. He is perseverant about getting out of bed in the morning of 07/18. Recurrent hospitalizations going back to June 2024 for acidosis, NICOLE, heart failure, COPD exacerbation. Qualifiers: Altered mental status type: delirium Qualified Code(s): R41.0 - Disorientation, unspecified (2) Aspiration pneumonia: Impression: Patient continues to have fever cough. Does not have a leukocytosis. His oxygen requirement seems to be downtrending. Patient with a recent history of recurrent aspiration. Since his last discharge, he was supposed to be strict n.p.o., however he was unable to get tube feed supplies to home. He had been eating immediately prior to arrival. He has some peribronchial cuffing and interstitial markings. Differential would be aspiration pneumonitis versus pneumonia. Given his recent hospitalizations and history of MDRO, he has been started on meropenem. * De-escalate antibiotics to ceftriaxone, tentatively 5-day empiric course * If he has a negative procalcitonin tomorrow, may discontinue antibiotics altogether early. * CBC and procalcitonin in the morning * Wean oxygen as tolerated, goal saturation greater than 88%. * Strict NPO on tube feeds (3) COPD exacerbation: Impression: Patient is stable on 2 L of oxygen, which is his home oxygen requirement. He is not having any significant wheezing. No significant metabolic abnormalities on his BMP. In review of his records, he may have COPD/asthma overlap syndrome. Chronically on 2 L of oxygen. He also has a history complicated by EN. He is on Trelegy Ellipta and Combivent prior to this admission * Continue home inhalers * Montelukast cannot be given through PEG tube * DuoNebs as needed * Continue steroid pulse tentatively for 5 days, consider taper * Wean oxygen as tolerated, goal saturation 88% (4) Elevated troponin: Impression: Troponin is downtrending. Last below 100. Peaked around 300. Patient denies any chest pain or anginal equivalents. His EKG did not show any acute ischemic changes. This is all consistent with the type II NSTEMI in the setting of his tachycardia and/or hypoxia. * Continue to monitor for anginal symptoms, likely underlying CAD * Needs cardiac follow-up depending on goals and trajectory (5) Failure to thrive in adult: Impression: History remains a little elusive on this. It is unclear why after discharging from SNF, he did not fare as well. Unclear why they were able to get home without a nutrition plan in place He does not seem to have adequate supports at home. I hope to meet with his son if he is to come in today. When he first came in he was somewhat disheveled. His wounds however appear clean and healing. * Awaiting further collateral * PT evaluation tomorrow * Suspect he may need a more supportive living environment (6) History of pulmonary embolism: Impression: History of right PE without heart strain on CT conducted at [place] at the end of May, as noted by the admitting provider this admission. No evidence of acute pulmonary embolism. He is on apixaban prior to this admission. * Continue [employer] Eliquis for VTE treatment * Unclear if PE was provoked or not, will need to follow-up after discharge to determine duration of treatment (7) Sinus tachycardia: Impression: Suspect this may have been physiologic in the setting of opioid withdrawal. I have discontinued as needed Lopressor. * Continues on [employer] metoprolol tartrate 50 mg 3 times daily (8) Chronic pain: Impression: He has a documented history of chronic pain syndrome. He been seen at several prior hospitalization. Unclear if this is just hyperalgesia from opioid dependence as below. * Treated as below Qualifiers: Chronic pain type: chronic pain syndrome Qualified Code(s): G89.4 - Chronic pain syndrome (9) Opioid dependence: Impression: Unclear full etiology of his prescribing history, but his PDMP is consistent with at least 45 mg of oxycodone daily over the last few months. He is a poor historian and his son is not much better. Much of his agitation and hyperalgesia he was experiencing on admission may be related to opiate withdrawal * Scheduled oxycodone through G-tube, may consider transitioning to Butrans patch depending on tolerability * As needed opiates still available * Avoid benzodiazepines in combination with opiates given synergistic activity. * As needed olanzapine if the patient is the risk to himself Qualifiers: Substance use status: in withdrawal Qualified Code(s): F11.23 - Opioid dependence with withdrawal
[2025-07-18] MEDS: BUDESONIDE 0.5 MG/2 ML NEB INH SCH (07:38)
[2025-07-18] MEDS: IPRATROPIUM 0.2 MG/ML NEB INH SCH (07:38)
[2025-07-18] MEDS: FORMOTEROL FUMARATE NEB 20 MCG/2 ML INH SCH (07:38)
[2025-07-18] MEDS: oxyCODONE ER 10 MG TABLET PO SCH (08:57)
[2025-07-18] MEDS ORDERED: ENOXAPARIN 40 MG/0.4 ML SYRINGE SUBQ SCH (09:00)
[2025-07-18] MEDS: INSULIN REGULAR, HUMAN 300 UNIT/3 ML PEN SUBQ SCH ×2 (09:06→18:20)
[2025-07-18] MEDS: oxyCODONE 5 MG TABLET PEG SCH (10:20)
[2025-07-18] MEDS: METOPROLOL TARTRATE 50 MG TABLET PEG SCH (13:43)
[2025-07-18] MEDS: METOCLOPRAMIDE 10 MG TABLET PEG SCH (13:44)
[2025-07-18] MEDS: GABAPENTIN 300 MG CAPSULE PEG SCH (13:45)
[2025-07-18] MEDS ORDERED: LORazepam 2 MG/ML VIAL IVP PRN (19:53)
[2025-07-18] MEDS: LORazepam 2 MG/ML VIAL IVP PRN (21:28)
[2025-07-18] MEDS: MELATONIN 3 MG TABLET PEG SCH (21:29)
[2025-07-18] MEDS: APIXABAN 5 MG TABLET PEG SCH (21:30)
[2025-07-19] MEDS: ACETAMINOPHEN 325 MG TABLET PEG PRN (01:12)
[2025-07-19 06:05] LABS: HCT - HEMATOCRIT 31.5 % (42.0-52.0); HGB - HEMOGLOBIN 9.1 g/dL (14.0-18.0); MEAN PLATELET VOLUME 9.0 fL (7.4-11.4); NRBC ABSOLUTE COUNT (AUTO) 0.00 x10^3/uL; NUCLEATED RED BLOOD CELLS AUTO 0.0 /100WBC; PLT - PLATELET COUNT 324 10^3/uL (130-450); RED CELL DISTRIBUTION WIDTH 16.2 % (12.0-15.0)
[2025-07-19 06:24] LABS: BUN - BLOOD UREA NITROGEN 18.0 mg/dL (6-20); CARBON DIOXIDE - CO2 30.0 mmol/L (21-32); CREATININE 0.9 mg/dL (0.6-1.3); GFR - MDRD 86.0 (>89)
--- NOTE | 2025-07-19 07:46 | PROVIDER PROGRESS NOTE ---
Subjective Prog Note Date Prog Note Date: 07/19/25 Prog Note Time: 16:37 Subjective Pt reports feeling: No change Subjective: Patient has tube feeds stopped last night because he was feeling nauseous and full. He has had a wet productive cough. We have resumed him on tube feeds slowly this morning, he seems to be tolerating. No nausea or vomiting this afternoon. When I walked in the room this evening, he was laying almost flat supine in the bed. He began to have a wet cough, but on suction only sputum was obtained. He was able to clear his secretions. Metabolic panel relatively normal. Hemoglobin stable around 9. Procalcitonin 0.13. Still waiting to meet with family. I did try calling them today. Patient denies any fevers or chills, abdominal pain, dysuria, chest pain or dyspnea. He is oriented to self and year. He is able to tell me he is in the hospital for pneumonia. He has back pain, worsened by his positioning in bed. Current Medications Current Medications Current Medications: Current Medications Generic Name Dose Route Start Last Admin Trade Name Jossie PRN Reason Stop Dose Admin Acetaminophen 650 mg 07/17/25 14:54 07/19/25 01:12 Acetaminophen 325 Mg Tablet PEG 650 mg Q4HR PRN Administration Pain 1 to 4, or Fever Albuterol/Ipratropium 3 ml 07/17/25 19:13 Ipratropium/Albuterol 3 Ml Neb INH RTQID PRN Shortness of Air/Wheezing Apixaban 5 mg 07/18/25 21:00 07/18/25 21:30 Apixaban 5 Mg Tablet PEG 5 mg BID DARICE Administration Budesonide 0.5 mg 07/18/25 07:00 07/18/25 18:00 Budesonide 0.5 Mg/2 Ml Neb INH 0.5 mg RTBID DARCIE Administration Ceftriaxone Sodium 1 gm 07/19/25 09:00 Ceftriaxone 1 Gm Vial IVP DAILY DARCIE Formoterol Fumarate 20 mcg 07/18/25 07:00 07/18/25 18:00 Formoterol Fumarate Neb 20 Mcg/2 Ml INH 20 mcg RTBID DARCIE Administration Gabapentin 600 mg 07/18/25 14:00 07/19/25 05:49 Gabapentin 300 Mg Capsule PEG 600 mg TID DARCIE Administration Hydromorphone HCl 0.5 mg 07/17/25 18:56 07/18/25 06:45 Hydromorphone 0.5 Mg/0.5 Ml Syringe IVP 0.5 mg Q2H PRN Administration Severe Pain (Level 7-10) Insulin Human Regular 1 - 9 unit 07/18/25 19:00 07/19/25 05:54 Insulin Regular, Human 300 Unit/3 Ml Pen SUBQ Not Given Q6HR DARCIE Protocol Ipratropium [place] 0.5 mg 07/18/25 07:00 07/18/25 18:00 Ipratropium 0.2 Mg/Ml Neb INH 0.5 mg RTQID DARCIE Administration Lorazepam 0.5 mg 07/18/25 21:19 07/18/25 21:28 Lorazepam 2 Mg/Ml Vial IVP 0.5 mg Q4HR PRN Administration Anxiety Melatonin 6 mg 07/18/25 21:00 07/18/25 21:29 Melatonin 3 Mg Tablet PEG 6 mg QPM DARCIE Administration Methocarbamol 500 mg 07/18/25 10:01 Methocarbamol 500 Mg Tablet PEG Q6H PRN muscle spasm Metoclopramide HCl 5 mg 07/18/25 14:00 07/19/25 05:48 Metoclopramide 10 Mg Tablet PEG 5 mg TID DARCIE Administration Metoprolol Tartrate 5 mg 07/17/25 18:50 07/17/25 18:57 Metoprolol 5 Mg/5 Ml Vial IVP 5 mg Q6H PRN Administration Tachycardia Metoprolol Tartrate 50 mg 07/18/25 14:00 07/19/25 05:48 Metoprolol Tartrate 50 Mg Tablet PEG 50 mg TID DARCIE Administration Olanzapine 5 mg 07/18/25 12:59 07/18/25 19:04 Olanzapine Odt 5 Mg Tablet TL 5 mg Q6H PRN Administration Agitation Ondansetron HCl 4 mg 07/17/25 14:54 07/18/25 18:30 Ondansetron 4 Mg/2 Ml Vial IVP 4 mg Q6HR PRN Administration Nausea / Vomiting Oxycodone HCl 5 mg 07/18/25 10:30 07/19/25 05:47 Oxycodone 5 Mg Tablet PEG 5 mg Q4HR DARCIE Administration Prednisone 40 mg 07/17/25 20:00 07/18/25 09:05 Prednisone 20 Mg Tablet PEG 40 mg DAILYWM DARCIE Administration Sodium Chloride 10 ml 07/17/25 14:54 07/18/25 06:46 Sodium Chloride Flush 0.9% 10 Ml Syringe IVP 10 ml PRN PRN Administration NEEDED PER PROVIDER ORDERS Sodium Chloride 10 ml 07/17/25 17:00 07/19/25 01:12 Sodium Chloride Flush 0.9% 10 Ml Syringe IVP 10 ml 0100,0900,1700 DARCIE Administration Sterile Water 20 ml 07/17/25 19:00 07/19/25 01:13 Water For Injection,Sterile 10 Ml Vial MC Not Given Q8H [facility] Objective Vital Signs/Intake & Output Reviewed Vital Signs: Yes Vital Signs: Vital Signs x48h Temp Pulse Pulse Resp BP BP BP 07/19/25 05:48 65 108/61 07/19/25 05:10 36.5 C 70 18 108/60 07/19/25 00:20 36.6 C 82 18 144/81 H Pulse Ox O2 Flow Rate 07/19/25 05:48 07/19/25 05:10 99 2 07/19/25 00:20 95 2 Intake & Output: Intake & Output 07/16/25 07/17/25 07/18/25 07/19/25 23:59 23:59 23:59 23:59 Intake Total 1340 / 1340 1561 / 1561 60 / 60 Output Total 200 / 200 0 / 0 700 / 700 Balance 1140 / 1140 1561 / 1561 -640 / -640 Weight (kg) 61.1 kg 60.5 kg 59.5 kg Objective Comments/Other: GEN: No acute distress HEENT: NC/AT, normal appearance of external ears and nose. Hearing baseline. Cardiac: Regular rhythm with rate in the 90s. No murmurs appreciated. Pulm: Wet, somewhat productive cough. No longer breathing through pursed lips. Rhonchi mostly in the right lung carney. Abdomen: Soft, nontender. G-tube is in place with no surrounding erythema or discharge. Extremities: Ecchymosis , Excoriations, and healing ulcerationson the upper and lower extremities. Sarcopenic lower extremities. He is moving all 4 extremities equally. Neuro: Face symmetric, CN II through XII intact grossly. No focal neurologic deficits. Psych: Mood euthymic. Cooperative. Appropriate. Lab Results 07/19/25 05:54 07/19/25 05:54 Other Labs: Lab Results x24hrs 07/19/25 07/19/25 07/19/25 Range/Units 05:54 05:53 00:14 WBC 7.9 (4.8-10.8) x10^3/uL RBC 3.45 L (4.70-6.10) 10^6/uL Hgb 9.1 L (14.0-18.0) g/dL Hct 31.5 L (42.0-52.0) % MCV 91.3 (80.0-94.0) fL MCH 26.4 L (27.0-31.0) pg MCHC 28.9 L (32.0-36.0) g/dL RDW 16.2 H (12.0-15.0) % Plt Count 324 (130-450) 10^3/uL MPV 9.0 (7.4-11.4) fL Neut # (Auto) 6.7 H (1.5-6.6) 10^3/uL Lymph # (Auto) 0.6 L (1.5-3.5) 10^3/uL [place] # (Auto) 0.6 (0.0-1.0) 10^3/uL Eos # (Auto) 0.0 (0.0-0.7) 10^3/uL Baso # (Auto) 0.0 (0.0-0.1) 10^3/uL Absolute Nucleated RBC 0.00 x10^3/uL Nucleated RBC % 0.0 /100WBC Sodium 141 (135-145) mmol/L Potassium 4.0 (3.5-4.5) mmol/L Chloride 107 (101-111) mmol/L Carbon Dioxide 30 (21-32) mmol/L Anion Gap 4.0 L (6-13) BUN 18 (6-20) mg/dL Creatinine 0.9 (0.6-1.3) mg/dL Estimated GFR (MDRD) 86 L (>89) Glucose 111 H (74-104) mg/dL POC Whole Bld Glucose 119 125 (70-100) mg/dL Calcium 9.0 (8.5-10.3) mg/dL 07/18/25 07/18/25 Range/Units 17:58 11:51 WBC (4.8-10.8) x10^3/uL RBC (4.70-6.10) 10^6/uL Hgb (14.0-18.0) g/dL Hct (42.0-52.0) % MCV (80.0-94.0) fL MCH (27.0-31.0) pg MCHC (32.0-36.0) g/dL RDW (12.0-15.0) % Plt Count (130-450) 10^3/uL MPV (7.4-11.4) fL Neut # (Auto) (1.5-6.6) 10^3/uL Lymph # (Auto) (1.5-3.5) 10^3/uL [place] # (Auto) (0.0-1.0) 10^3/uL Eos # (Auto) (0.0-0.7) 10^3/uL Baso # (Auto) (0.0-0.1) 10^3/uL Absolute Nucleated RBC x10^3/uL Nucleated RBC % /100WBC Sodium (135-145) mmol/L Potassium (3.5-4.5) mmol/L Chloride (101-111) mmol/L Carbon Dioxide (21-32) mmol/L Anion Gap (6-13) BUN (6-20) mg/dL Creatinine (0.6-1.3) mg/dL Estimated GFR (MDRD) (>89) Glucose (74-104) mg/dL POC Whole Bld Glucose 272 262 (70-100) mg/dL Calcium (8.5-10.3) mg/dL Diagnostic Imaging Diagnostic Imaging Results: positive Final report reviewed Assessment/Plan Problem List (1) Altered mental status: Impression: Mentation clearing from admission. He is oriented to self and time. Unclear whether he is oriented to location, is able to list locations where he is not ("not [place], not [facility]...") He is somewhat impulsive. Likely some chronic encephalopathy due to his long- term opioid use. May have been exacerbated by withdrawal symptoms given his hyperactive, anxious delirium on arrival. * Management as below * Seeking collateral with patient's son * PT evaluation today Qualifiers: Altered mental status type: delirium Qualified Code(s): R41.0 - Disorientation, unspecified (2) Aspiration pneumonia: Impression: Unclear if patient had pneumonia on initial arrival. He did have a cough and a history of recurrent aspiration. However he does not have a leukocytosis. Does not have a fever. He was started on antibiotics on arrival. Given no emergent signs of systemic illness, or leukocytosis, combined with a normal procalcitonin on hospital day 2, we will discontinue antibiotics. He was started on meropenem initially and transitioned to ceftriaxone. He does have a history of MDRO. From admission, it sounds like he was eating despite previously being told that he is strict n.p.o. due to his aspiration risk. His initial chest x-ray showed peribronchial cuffing and interstitial markings. This is at this time most suspicious for pneumonitis in the setting of aspiration. * Given normal procalcitonin negative will leukocytosis, will opt for early discontinuation of antibiotics * Continue to trend CBC 1 more day * Started on guaifenesin per PEG to help him clear his mucus * Oxygen as needed, goal saturation greater than 88% * Continue with strict n.p.o. on tube feeds Qualifiers: Aspiration pneumonia type: unspecified Laterality: unspecified laterality Lung location: unspecified part of lung Qualified Code(s): J69.0 - Pneumonitis due to inhalation of food and vomit (3) COPD exacerbation: Impression: Maintaining saturations on 2L or less of O2. In review of his records, he may have COPD/asthma overlap syndrome. Chronically on 2 L of oxygen. He also has a history complicated by EN. He is on Trelegy Ellipta and Combivent prior to this admission * Continue home inhalers * Montelukast cannot be given through PEG tube * DuoNebs as needed * Continue steroid pulse for 5 days * Wean oxygen as tolerated, goal saturation 88% (4) Elevated troponin: Impression: Resolved Troponin is downtrending. Last below 100. Peaked around 300. Patient denies any chest pain or anginal equivalents. His EKG did not show any acute ischemic changes. This is all consistent with the type II NSTEMI in the setting of his tachycardia and/or hypoxia. * Continue to monitor for anginal symptoms, likely underlying CAD * Needs cardiac follow-up after discharge depending on goals and trajectory (5) Failure to thrive in adult: Impression: Today the patient tells me he is highly motivated to go home. Does not want to discharge to a rehab facility. I do wonder if he may have elected to leave SNF prior to that being a safe decision History remains a little elusive on this. It is unclear why after discharging from SNF, he did not fare as well. Unclear why they were able to get home without a nutrition plan in place When he first came in he was somewhat disheveled. His wounds however appear clean and healing. * Awaiting further collateral * Suspect he may need a more supportive living environment (6) History of pulmonary embolism: Impression: History of right PE without heart strain on CT conducted at [facility] at the end of May, as noted by the admitting provider this admission. No evidence of acute pulmonary embolism. He is on apixaban prior to this admission. * Continue EMERGENCY DEPARTMENT CLINICIAN Eliquis for VTE treatment * Unclear if PE was provoked or not, will need to follow-up after discharge to determine duration of treatment (7) Sinus tachycardia: Impression: Suspect this may have been physiologic in the setting of opioid withdrawal. I have discontinued as needed Lopressor. * Continues on EMERGENCY DEPARTMENT CLINICIAN metoprolol tartrate 50 mg 3 times daily (8) Chronic pain: Impression: He has a documented history of chronic pain syndrome. He been seen at several prior hospitalization. Unclear if this is just hyperalgesia from opioid dependence as below. * Treated as below Qualifiers: Chronic pain type: chronic pain syndrome Qualified Code(s): G89.4 - Chronic pain syndrome (9) Opioid dependence: Impression: Patient claims that he is on 10 mg oxygen at home. This is not consistent with his PDMP. Unclear full etiology of his prescribing history, but his PDMP is consistent with at least 45 mg of oxycodone daily over the last few months. He is a poor historian and his son is not much better. Much of his agitation and hyperalgesia he was experiencing on admission may be related to opiate withdrawal * Scheduled oxycodone through G-tube, may consider transitioning to Butrans patch depending on tolerability * As needed opiates still available * Avoid benzodiazepines in combination with opiates given synergistic activity. * As needed olanzapine if the patient is at risk to himself Qualifiers: Substance use status: in withdrawal Qualified Code(s): F11.23 - Opioid dependence with withdrawal
[2025-07-19] MEDS: cefTRIAXone 1 GM VIAL IVP SCH (08:42)
[2025-07-19] MEDS ORDERED: cefTRIAXone 1 GM in SODIUM CHLORIDE 0.9% MINIBAG 100 ML IV SCH (09:00)
[2025-07-19] MEDS: guaiFENesin 100 MG/5 ML UDC PEG SCH (18:11)
--- NOTE | 2025-07-19 18:18 | PT Plan of Care ---
PT Inpatient Plan of Care DIAGNOSIS Diagnosis: AMS, aspiration PNA, COPD exacerbation, failure to thrive Referring Provider: Rohan Maldonado Patient Status: Inpatient CHIEF COMPLAINT Chief Complaint: weakness, cough, confusion, LBP Onset of Chief Complaint: RECONSTRUCTIVE SURGEON on 07/17/25 MEDICAL/SURGICAL HISTORY Medical History (Updated 07/19/25 @ 17:24 by Rohan Maldonado, DO) Gastroparesis GI bleed Left foot drop Kidney stones CHF (congestive heart failure) Afib Depression Osteoporosis Oxygen dependent Hyperlipidemia Peripheral neuropathy Surgical History (Updated 07/18/25 @ 02:31 by Gerri Verdin RN) History of gastrostomy History of tracheostomy History of esophagogastroduodenoscopy (EGD) History of vasectomy History of total hip arthroplasty Hx of cervical spine surgery H/O cataract extraction BALANCE/FUNCTIONAL RESULTS Sitting Balance: Fair Standing Balance: Poor ASSESSMENT Assessment: The pt is a 60y/o M who arrived to the ED on 07/17/25 due to worsening SOB and AMS, he was hospitalized with aspiration PNA, COPD exacerbation, and failure to thrive. PMH includes multiple recent hospitalizations with a PE in May of this year, he was DC'd home from a SNF 1-2 weeks ago and has not had any tube feedings even though he is NPO, he has been taking food orally. Please see chart for complete medical hx. The pt was received resting supine in bed with constant wet cough and not using the suction or spitting up what he was producing. Once instructed to use the suction he was able to clear the production and his cough reduced minimally. He presented today with decreased B UE and LE strength, decreased activity tolerance, impulsivity, confusion, impaired standing balance, and increased LBP which limited his tolerance with functional mobility. He is unsafe with mobility and due to his confusion and impulsivity he requires constant redirection. He was advised to sit up in a chair in order to assist with clearing his lungs, he agreed to this, however, eh immediately asks to get back into bed. His overall tolerance throughout this assessment was limited by weakness, fatigue, and low back pain. At this time recommend continued skilled PT intervention while in the acute setting and DC to SNF for further rehab once pt medically stable. At the end of the session the pt was sitting up in a chair with call light in reach, chair alarm in place and on, and all needs met while WEIGHT RECORDER was assessing his vitals. RN and MD updated on pt's status and DC rec. PATIENT/FAMILY GOALS Patient/Family Goals: He was unable to verbalize a functional goal GOALS Improve supine to sit to:: Independent Improve sit to stand to:: Standby Assist Improve pivot transfer ability to:: Standby Assist Improve sit to supine to:: Modified Independent Improve gait ability to:: CGA Advance Assistive Device to:: Front Wheeled Walker Increase distance walked to (in feet):: 25 Improve Sitting Balance to:: Good PLAN Frequency: 1-2x/day Duration: Until goals are met DISCHARGE RECOMMENDATIONS Discharge Location: Detention Facility Support/Services Needed: With assist Other Discharge Equipment: pt owns all recommended DME Transport Needs at Discharge: Wheelchair van
[2025-07-19] MEDS: MELATONIN 3 MG TABLET PEG SCH (19:59)
[2025-07-20] MEDS: IPRATROPIUM/ALBUTEROL 3 ML NEB INH PRN (03:35)
[2025-07-20 05:57] LABS: HCT - HEMATOCRIT 30.0 % (42.0-52.0); HGB - HEMOGLOBIN 8.8 g/dL (14.0-18.0); MEAN PLATELET VOLUME 9.7 fL (7.4-11.4); NRBC ABSOLUTE COUNT (AUTO) 0.00 x10^3/uL; NUCLEATED RED BLOOD CELLS AUTO 0.0 /100WBC; PLT - PLATELET COUNT 350 10^3/uL (130-450); RED CELL DISTRIBUTION WIDTH 16.2 % (12.0-15.0)
[2025-07-20 06:15] LABS: ALT ALANINE AMINOTRANSFERASE 10.0 IU/L (10-60); AST ASPARTATE AMINOTRANSFERASE 10.0 IU/L (10-42); BUN - BLOOD UREA NITROGEN 19.0 mg/dL (6-20); CARBON DIOXIDE - CO2 31.0 mmol/L (21-32); CREATININE 0.8 mg/dL (0.6-1.3); GFR - MDRD 98.0 (>89); PHOSPHORUS 1.9 mg/dL (2.5-5.0)
--- NOTE | 2025-07-20 08:57 | PROVIDER PROGRESS NOTE ---
Subjective Prog Note Date Prog Note Date: 07/20/25 Prog Note Time: 08:55 Subjective Pt reports feeling: Improved Subjective: Patient continues to be more redirectable this morning. He was sleeping this morning. He is getting his opiates as ordered. He says his pain is reasonably well-managed. He insists that his home dose of oxycodone is 10 mg. This not consistent with his PDMP. He does not appear in any acute distress. Patient was very comprehensible with me today. He is able to tell me that his son has tube feed supplies at home and plenty of tube feed. He is able to dial his son on the phone and ask him to come to the hospital tomorrow at 1 for consideration of discharge. Vital signs remained stable. Pulse in the 60s to 80s. Hemodynamically stable. Labs remain unremarkable, will stop trending. Patient denies any fevers. Cough is stable. Denies abdominal pain, nausea, vomiting, dysuria. Current Medications Current Medications Current Medications: Current Medications Generic Name Dose Route Start Last Admin Trade Name Freq PRN Reason Stop Dose Admin Acetaminophen 650 mg 07/17/25 14:54 07/19/25 01:12 Acetaminophen 325 Mg Tablet PEG 650 mg Q4HR PRN Administration Pain 1 to 4, or Fever Albuterol/Ipratropium 3 ml 07/17/25 19:13 07/20/25 03:35 Ipratropium/Albuterol 3 Ml Neb INH 3 ml RTQID PRN Administration Shortness of Air/Wheezing Apixaban 5 mg 07/18/25 21:00 07/20/25 08:26 Apixaban 5 Mg Tablet PEG 5 mg BID DARCIE Administration Budesonide 0.5 mg 07/18/25 07:00 07/20/25 07:19 Budesonide 0.5 Mg/2 Ml Neb INH 0.5 mg RTBID DARCIE Administration Ceftriaxone Sodium 1 gm 07/19/25 09:00 07/20/25 08:26 Ceftriaxone 1 Gm Vial IVP 1 gm DAILY DARCIE Administration Formoterol Fumarate 20 mcg 07/18/25 07:00 07/20/25 07:19 Formoterol Fumarate Neb 20 Mcg/2 Ml INH 20 mcg RTBID DARCIE Administration Gabapentin 600 mg 07/18/25 14:00 07/20/25 06:19 Gabapentin 300 Mg Capsule PEG 600 mg TID DARCIE Administration Guaifenesin 200 mg 07/19/25 17:25 07/20/25 06:18 Guaifenesin 100 Mg/5 Ml Udc PEG 07/20/25 22:01 200 mg TID DARCIE Administration Hydromorphone HCl 0.5 mg 07/17/25 18:56 07/20/25 03:58 Hydromorphone 0.5 Mg/0.5 Ml Syringe IVP 0.5 mg Q2H PRN Administration Severe Pain (Level 7-10) Insulin Human Regular 1 - 9 unit 07/18/25 19:00 07/20/25 06:22 Insulin Regular, Human 300 Unit/3 Ml Pen SUBQ Not Given Q6HR DARCIE Protocol Ipratropium [place] 0.5 mg 07/18/25 07:00 07/20/25 07:19 Ipratropium 0.2 Mg/Ml Neb INH 0.5 mg RTQID DARCIE Administration Lorazepam 0.5 mg 07/18/25 21:19 07/19/25 17:59 Lorazepam 2 Mg/Ml Vial IVP 0.5 mg Q4HR PRN Administration Anxiety Melatonin 6 mg 07/19/25 19:00 07/19/25 19:59 Melatonin 3 Mg Tablet PEG 6 mg Q24H DARCIE Administration Methocarbamol 500 mg 07/18/25 10:01 07/20/25 08:26 Methocarbamol 500 Mg Tablet PEG 500 mg Q6H PRN Administration muscle spasm Metoclopramide HCl 5 mg 07/18/25 14:00 07/20/25 06:18 Metoclopramide 10 Mg Tablet PEG 5 mg TID DARCIE Administration Metoprolol Tartrate 5 mg 07/17/25 18:50 07/17/25 18:57 Metoprolol 5 Mg/5 Ml Vial IVP 5 mg Q6H PRN Administration Tachycardia Metoprolol Tartrate 50 mg 07/18/25 14:00 07/20/25 06:21 Metoprolol Tartrate 50 Mg Tablet PEG 50 mg TID DARCIE Administration Olanzapine 5 mg 07/18/25 12:59 07/19/25 20:51 Olanzapine Odt 5 Mg Tablet TL 5 mg Q6H PRN Administration Agitation Ondansetron HCl 4 mg 07/17/25 14:54 07/18/25 18:30 Ondansetron 4 Mg/2 Ml Vial IVP 4 mg Q6HR PRN Administration Nausea / Vomiting Oxycodone HCl 5 mg 07/18/25 10:30 07/20/25 06:17 Oxycodone 5 Mg Tablet PEG 5 mg Q4HR DARCIE Administration Prednisone 40 mg 07/17/25 20:00 07/20/25 08:26 Prednisone 20 Mg Tablet PEG 40 mg DAILYWM DARCIE Administration Sodium Chloride 10 ml 07/17/25 14:54 07/18/25 06:46 Sodium Chloride Flush 0.9% 10 Ml Syringe IVP 10 ml PRN PRN Administration NEEDED PER PROVIDER ORDERS Sodium Chloride 10 ml 07/17/25 17:00 07/20/25 03:58 Sodium Chloride Flush 0.9% 10 Ml Syringe IVP 10 ml 0100,0900,1700 DARCIE Administration Sterile Water 20 ml 07/17/25 19:00 07/20/25 08:27 Water For Injection,Sterile 10 Ml Vial MC Not Given Q8H DARCIE Objective Vital Signs/Intake & Output Reviewed Vital Signs: Yes Vital Signs: Vital Signs x48h Pulse Resp BP Pulse Ox O2 Flow Rate 07/20/25 07:20 1 07/20/25 07:20 68 20 07/20/25 06:21 77 131/72 H 07/20/25 03:45 20 93 1 07/20/25 03:35 81 24 Intake & Output: Intake & Output 07/17/25 07/18/25 07/19/25 07/20/25 23:59 23:59 23:59 23:59 Intake Total 1340 / 1340 1561 / 1561 634 / 634 496 / 496 Output Total 200 / 200 0 / 0 1725 / 1725 550 / 550 Balance 1140 / 1140 1561 / 1561 -1091 / -1091 -54 / -54 Weight (kg) 61.1 kg 60.5 kg 59.5 kg 54 kg Objective Comments/Other: GEN: No acute distress HEENT: NC/AT, normal appearance of external ears and nose. Hearing baseline. Cardiac: Regular rhythm with rate in the 90s. No murmurs appreciated. Pulm: Wet, somewhat productive cough. No longer breathing through pursed lips. Rhonchi mostly in the right lung carney. Abdomen: Soft, nontender. G-tube is in place with no surrounding erythema or discharge. Extremities: Ecchymosis , Excoriations, and healing ulcerationson the upper and lower extremities. Sarcopenic lower extremities. He is moving all 4 extremities equally. Neuro: Face symmetric, CN II through XII intact grossly. No focal neurologic deficits. Psych: Mood euthymic. Cooperative. Appropriate. Lab Results 07/20/25 05:08 07/20/25 05:08 Other Labs: Lab Results x24hrs 07/20/25 07/20/25 07/20/25 Range/Units 05:58 05:08 00:05 WBC 7.2 (4.8-10.8) x10^3/uL RBC 3.38 L (4.70-6.10) 10^6/uL Hgb 8.8 L (14.0-18.0) g/dL Hct 30.0 L (42.0-52.0) % MCV 88.8 (80.0-94.0) fL MCH 26.0 L (27.0-31.0) pg MCHC 29.3 L (32.0-36.0) g/dL RDW 16.2 H (12.0-15.0) % Plt Count 350 (130-450) 10^3/uL MPV 9.7 (7.4-11.4) fL Neut # (Auto) 5.4 (1.5-6.6) 10^3/uL Lymph # (Auto) 1.0 L (1.5-3.5) 10^3/uL Hinds # (Auto) 0.8 (0.0-1.0) 10^3/uL Eos # (Auto) 0.0 (0.0-0.7) 10^3/uL Baso # (Auto) 0.0 (0.0-0.1) 10^3/uL Absolute Nucleated RBC 0.00 x10^3/uL Nucleated RBC % 0.0 /100WBC Sodium 142 (135-145) mmol/L Potassium 3.9 (3.5-4.5) mmol/L Chloride 107 (101-111) mmol/L Carbon Dioxide 31 (21-32) mmol/L Anion Gap 4.0 L (6-13) BUN 19 (6-20) mg/dL Creatinine 0.8 (0.6-1.3) mg/dL Estimated GFR (MDRD) 98 (>89) Glucose 126 H (74-104) mg/dL POC Whole Bld Glucose 137 153 (70-100) mg/dL Calcium 8.9 (8.5-10.3) mg/dL Phosphorus 1.9 L (2.5-5.0) mg/dL Magnesium 2.0 (1.7-2.3) mg/dL Total Bilirubin 0.2 (0.2-1.0) mg/dL AST 10 (10-42) IU/L ALT 10 (10-60) IU/L Alkaline Phosphatase 48 (42-121) IU/L Total Protein 5.8 L (6.4-8.9) g/dL Albumin 2.9 L (3.2-5.5) g/dL Globulin 2.9 (2.1-4.2) g/dL Albumin/Globulin Ratio 1.0 (1.0-2.2) 07/19/25 07/19/25 Range/Units 17:46 11:39 WBC (4.8-10.8) x10^3/uL RBC (4.70-6.10) 10^6/uL Hgb (14.0-18.0) g/dL Hct (42.0-52.0) % MCV (80.0-94.0) fL MCH (27.0-31.0) pg MCHC (32.0-36.0) g/dL RDW (12.0-15.0) % Plt Count (130-450) 10^3/uL MPV (7.4-11.4) fL Neut # (Auto) (1.5-6.6) 10^3/uL Lymph # (Auto) (1.5-3.5) 10^3/uL Hinds # (Auto) (0.0-1.0) 10^3/uL Eos # (Auto) (0.0-0.7) 10^3/uL Baso # (Auto) (0.0-0.1) 10^3/uL Absolute Nucleated RBC x10^3/uL Nucleated RBC % /100WBC Sodium (135-145) mmol/L Potassium (3.5-4.5) mmol/L Chloride (101-111) mmol/L Carbon Dioxide (21-32) mmol/L Anion Gap (6-13) BUN (6-20) mg/dL Creatinine (0.6-1.3) mg/dL Estimated GFR (MDRD) (>89) Glucose (74-104) mg/dL POC Whole Bld Glucose 189 136 (70-100) mg/dL Calcium (8.5-10.3) mg/dL Phosphorus (2.5-5.0) mg/dL Magnesium (1.7-2.3) mg/dL Total Bilirubin (0.2-1.0) mg/dL AST (10-42) IU/L ALT (10-60) IU/L Alkaline Phosphatase (42-121) IU/L Total Protein (6.4-8.9) g/dL Albumin (3.2-5.5) g/dL Globulin (2.1-4.2) g/dL Albumin/Globulin Ratio (1.0-2.2) Diagnostic Imaging Diagnostic Imaging Results: positive Final report reviewed Assessment/Plan Problem List (1) Altered mental status: Impression: Mentation seems normal. He is oriented to self, month and year, and location. He says he is in the hospital for pneumonia treatment which is appropriate. He is somewhat impulsive. Likely some chronic encephalopathy due to his long- term opioid use. May have been exacerbated by withdrawal symptoms given his hyperactive, anxious delirium on arrival. * Continue seeking collateral patient's son * PT recommending home with home health, orders are in * Likely Medically stable for discharge 07/21, RT can give loaner oxygen tank if needed * His son has agreed to come in to help transport him home and for further instruction at 1:00 on 07/21. Qualifiers: Altered mental status type: delirium Qualified Code(s): R41.0 - Disorientation, unspecified (2) Aspiration pneumonia: Impression: Overall it is unclear the etiology of his dysphagia. He has been documented in the record is having multiple attempts to advance his diet, and has been told that he is to be strict n.p.o. indefinitely. I have been unable to get any family for collateral. History of a brief anoxic brain injury may explain his symptoms. Given no emergent signs of systemic illness, or leukocytosis, combined with a normal procalcitonin on hospital day 2, Antibiotics were discontinued early. He was started on meropenem initially and transitioned to ceftriaxone. He does have a history of MDRO. From admission, it sounds like he was eating despite previously being told that he is strict n.p.o. due to his aspiration risk. His initial chest x-ray showed peribronchial cuffing and interstitial markings. This is at this time most suspicious for pneumonitis in the setting of aspiration. * Patient needs tube feeds greater than 90 days given chronic dysphagia * Gave 5 doses of guaifenesin per PEG 3 times daily and this seemed to help him clear his secretions. Consider adding at discharge * Continue to monitor off antibiotics. * Continue with strict n.p.o. on tube feeds Qualifiers: Aspiration pneumonia type: unspecified Laterality: unspecified laterality Lung location: unspecified part of lung Qualified Code(s): J69.0 - Pneumonitis due to inhalation of food and vomit (3) COPD exacerbation: Impression: Maintaining saturations on 2L or less of O2. In review of his records, he may have COPD/asthma overlap syndrome. Chronically on 2 L of oxygen. He also has a history complicated by EN, Not on CPAP. He is on Trelegy Ellipta and Combivent prior to this admission * Continue home inhalers * Montelukast cannot be given through PEG tube * DuoNebs as needed * Continue steroid pulse for 5 days, EOT 07/21 * Wean oxygen as tolerated, goal saturation 88% * Patient apparently does not have oxygen tanks at home, but has a concentrator. He can borrow an oxygen tank at discharge, per RT (4) Foot ulcer: Impression: Patient has multiple ulcerations. Possibly sequelae of vascular disease, most are healing well. He does have a ulceration on the heel of his right foot that may benefit from offloading boot. * Consider getting heel offloading boot for right foot, discussed with PT 07/20, and they were unaware of how to order. (5) Elevated troponin: Impression: Resolved Troponin is downtrending. Last below 100. Peaked around 300. Patient denies any chest pain or anginal equivalents. His EKG did not show any acute ischemic changes. This is all consistent with the type II NSTEMI in the setting of his tachycardia and/or hypoxia. * Continue to monitor for anginal symptoms, likely underlying CAD * Needs cardiac follow-up after discharge depending on goals and trajectory (6) Failure to thrive in adult: Impression: Patient believes that he will be best served at home. Despite not being able to reach his son who is his primary caregiver, the patient is decisional with regard to his hospitalization. He does not want to discharge to a rehab facility. PT says he is good enough to go home. It remains unclear why after discharging from SNF he did not fare well. He was only at home for about a week and came in with unkempt clothes. His wounds however were clean and do not appear infected. * Awaiting further collateral * Likely discharge home as above (7) History of pulmonary embolism: Impression: History of right PE without heart strain on CT conducted at [facility] at the end of May, as noted by the admitting provider this admission. No evidence of acute pulmonary embolism. He is on apixaban prior to this admission. * Continue [employer] Eliquis for VTE treatment * Unclear if PE was provoked or not, will need to follow-up after discharge to determine duration of treatment (8) Sinus tachycardia: Impression: Resolved. Suspect this may have been physiologic in the setting of opioid withdrawal. I have discontinued as needed Lopressor. * Continues on [employer] metoprolol tartrate 50 mg 3 times daily (9) Chronic pain: Impression: He has a documented history of chronic pain syndrome. He been seen at several prior hospitalization. Unclear if this is just hyperalgesia from opioid dependence as below. * Treated as below Qualifiers: Chronic pain type: chronic pain syndrome Qualified Code(s): G89.4 - Chronic pain syndrome (10) Opioid dependence: Impression: Patient claims that he is on 10 mg oxygen at home. This is not consistent with his PDMP. Appears comfortable on opiate regimen as below. Unclear full etiology of his prescribing history, but his PDMP is consistent with at least 45 mg of oxycodone daily over the last few months. He is a poor historian and his son is not much better. Much of his agitation and hyperalgesia he was experiencing on admission may be related to opiate withdrawal * Scheduled oxycodone through G-tube, We will leave this for now. Would be better served on a Butrans patch or Suboxone * As needed opiates still available * Avoid benzodiazepines in combination with opiates given synergistic activity. * As needed olanzapine if the patient is at risk to himself Qualifiers: Substance use status: in withdrawal Qualified Code(s): F11.23 - Opioid dependence with withdrawal (11) Sacral decubitus ulcer, stage II: Impression: Present on arrival. Appreciate wound care for their help in keeping his wounds clean. Nursing support keeping him offloaded.
[2025-07-21 05:40] VITALS: O2SAT 96
--- NOTE | 2025-07-21 09:24 | Discharge Summary ---
"Discharge Summary Admit Date: 07/17/25 Discharge Date: 07/21/25 Discharging Provider: Dr. Jossie Lutz Primary Care Provider: Clayton Vila Code Status: Attempt Resuscitation Discharge Facility Name: Home with Home Health DIAGNOSES Discharge Diagnoses with Status of Each Condition: Altered mental statusresolved. He appears back at his baseline. Likely some chronic encephalopathy due to long-term opioid use. Advised to continue lower dose opioids at home. Aspiration pneumonitisunclear etiology of dysphagia, advised close follow-up outpatient with PCP for specialist referrals for this. Antibiotics discontinued early. Has been on his home 2 L of oxygen. Continue strict n.p.o., tube feeds. COPD exacerbationcompleted prednisone course. Now on 2 L, his home oxygen. Continue home inhalers. Foot ulcersecondary to vascular disease, not infected at this time. Elevated troponinresolved. Failure to thrive in adultplan for home with home health. History of PEcontinue Eliquis. Sinus tachycardiaresolved. Chronic paincontinue home opioid use. Sacral decubitus ulcer, stage IIpresent on arrival. HPI History of Present Illness: Per Landy Alberts: 60-year-old male with extensive past medical history presents to the emergency department with complaints of shortness of breath. He has been in the emergency department for about 9 hours at the point that I am seeing him. Per the ED he is a poor historian. Has not provided answers to questions. He had been seen in [facility] emergency department and I do have the records from that visit. Was seen at about 2300 on the . Presented for shortness of breath and dyspnea. Stated that he had been discharged from rehab facility, did not have tube feeds at home and was eating Ramen noodles. This patient is strict n.p.o. at home. More extensive review of records reveals that this patient was hospitalized at [facility] in [place] from June 21 to June 23, 2025. During that admission he was treated for aspiration pneumonia. This was in the setting of eating [employer] despite being strict n.p.o. status. He required ICU admission for aspiration pneumonia/pneumonitis. He improved with empiric antibiotics. He was discharged to rehab at the time of his discharge from [facility] he was back on 2 L via nasal cannula Ceftin and linezolid. These prescriptions are written by mouth it is unclear if he was putting these through his PEG tube or swallowing them. He has a recent history of pulmonary embolus on apixaban. CTA of the chest shows a stable right lower lobe pulmonary embolus without right heart strain in late May. Chronic aspiration pneumonitis is noted on the CT. Patient has a history of tracheostomy in 2023 as well as gastrostomy. The etiology of his n.p.o. status is unknown to me at this time. I was able to review Dr. Alvarado's critical care note from 06/22/2025. Dr. Alvarado notes history of interstitial lung disease status post surgical lung biopsy showing sequelae of recurrent aspiration and colonization with MRSA/Pseudomonas/ESBL Klebsiella/E. coli. He notes diabetic gastroparesis as well. Goals of care discussion in Dr Alvarado's note from the above date states that the patient would like to be full code. He would like reversible injury to be treated. He would like to be placed on mechanical ventilation and have CPR for reversible injury but would not want long-term tracheostomy or ventilation. He would like his son to be his surrogate medical decision maker. There is a POLST on the chart here at [facility] stating full code and full treatment. I had a phone conversation with his son he states that the patient came home from SNF sometime in the last week or so. The son has been doing dressings for his diabetic foot wounds. And the son corroborates that they did not have tube feeds at home therefore the patient was eating. The son was vague in terms of giving history. Patient lists PCP is Clayton Vila on the chart. When I asked the son he denies his father having a primary care provider. His father has lived with him for several years. I discussed this patient with Dr. Phillips in the emergency department. I am admitting him for acute hypoxic respiratory failure. I will admit him to inpatient status. CONSULTS | PROCEDURES Consultations: Physical therapy, respiratory therapy, nutrition Procedures: Chest x-ray which shows peribronchial cuffing with increased interstitial markings, suggestive of mild to moderate pulmonary edema. HOSPITAL COURSE Hospital Course: Patient is a 60-year-old male with a history of chronic dysphagia s/p PEG tube in place, opioid dependence who presented for altered mentation. He also had some dyspnea, as well as wheezing at rest. His mentation improved quickly with down titration of his opioids. He was also treated for a COPD exacerbation, he was started on scheduled DuoNebs, as well as a steroid burst. His tube feeds were resumed, and he was made strict NPO. PT did evaluate the patient, and recommended home with home health on discharge. Tube feeds were set up at home. Patient was deemed stable for discharge home. ALLERGIES Allergies Allergy/AdvReac Type Severity Reaction Status Date / Time aspirin Allergy Unknown Verified 07/17/25 04:06 cyclobenzaprine (From AdvReac Hallucinati Verified 07/17/25 04:06 Flexeril) ons ibuprofen AdvReac Respiratory Verified 07/17/25 04:06 pseudoephedrine (From Entex AdvReac Unknown Verified 07/17/25 04:06 T) MEDICATIONS Ambulatory Orders Medication Instructions Recorded Confirmed ipratropium 0.5 mg-albuterol 3 mg 3 ml PO Q4H PRN Asth ma 12/20/23 07/17/25 (2.5 mg base)/3 mL nebulization soln acetaminophen 325 mg tablet 650 mg (2 x 325 mg) PO Q4H R PRN 01/10/24 01/22/24 Pain Or Fever > 38c (100.4f) fluticasone propionate 50 1 spray intranasal BID aller gic 01/10/24 07/17/25 mcg/actuation nasal rhinitis ##0 spray,suspension ipratropium 20 mcg-albuterol 100 1 puff inhalation QID copd ##0 01/10/24 07/17/25 mcg/actuation mist for inhalation (Combivent Respimat) montelukast 10 mg tablet 10 mg PO QPM copd ##0 07/17/25 bisacodyl 10 mg rectal suppository 1 appful MD DAILY P RN Constipation 01/13/24 07/17/25 metoprolol tartrate 25 mg tablet 50 mg PO TID 01/13/24 07/17/25 naloxone 4 mg/actuation nasal spray 1 spray IN DAILY P RN As Needed Per 01/15/24 07/17/25 Provider Orders sennosides 8.6 mg tablet (Senna 8.6 mg PO BID PRN Cons tipation 01/22/24 07/17/25 Lax) albuterol sulfate 2.5 mg/3 mL 0.41 mg inhalation TID 0 07/17/25 07/17/25 (0.083 %) solution for nebulization apixaban 5 mg tablet (Eliquis) 5 mg PO BID 07/17/25 ferrous sulfate 325 mg (65 mg 325 mg PO Q OTHER DAY ir on 07/17/25 07/17/25 iron) tablet deficiency fluticasone fur. 200 mcg-umeclid 1 inh inhalation CHELE Y 07/17/25 07/17/25 62.5 mcg-vilant 25 mcg inhalat.powder (Trelegy Ellipta) gabapentin 300 mg capsule 600 mg PO TID 07/17/2507/17 lidocaine 4 % topical patch 1 patch topical DAILY PRN pain 07/17/25 07/17/25 losartan 25 mg tablet 12.5 mg PO DAILY 07/17/25 melatonin 5 mg tablet 5 mg PO HS 07/17/25 07/17/25 methocarbamol 500 mg tablet 500 mg PO Q6H PRN muscle s pasm 07/17/25 07/17/25 metoclopramide HCl 10 mg tablet 5 mg PO TID 07/17/25 0 07/17/25 nystatin 100,000 unit/gram topical 1 applic topical TI D PRN rash 07/17/25 07/17/25 cream ondansetron HCl 4 mg tablet 4 mg PO Q6H PRN nausea and vomiting 07/17/25 07/17/25 oxycodone 5 mg tablet 5 mg PO Q4H PRN pain 5 07/17/25 prednisone 10 mg tablet 10 mg PO DAILY 07/17/2506/29 PHYSICAL EXAM AT DISCHARGE Vital Signs: Vital Signs x48h Temp Pulse Pulse Resp BP Pulse Ox O2 Flow Rate 07/21/25 14:00 97.9 F 115 H 18 151/91 H 96 2 07/21/25 13:08 110 H 07/21/25 11:43 98 18 2 GEN: No acute distress HEENT: NC/AT, normal appearance of external ears and nose. Hearing baseline. Cardiac: Regular rhythm with rate in the 90s. No murmurs appreciated. Pulm: Wet, somewhat productive cough. No longer breathing through pursed lips. Rhonchi mostly in the right lung carney. Abdomen: Soft, nontender. G-tube is in place with no surrounding erythema or discharge. Extremities: Ecchymosis , Excoriations, and healing ulcerationson the upper and lower extremities. Sarcopenic lower extremities. He is moving all 4 extremities equally. Neuro: Face symmetric, CN II through XII intact grossly. No focal neurologic deficits. Psych: Mood euthymic. Cooperative. Appropriate. LABS 07/20/25 05:08 07/20/25 05:08 DIAGNOSTIC IMAGING Diagnostic Imaging Results: Final report reviewed FOLLOW UP Follow Up: Follow up with PCP. TIME SPENT Time Spent in Discharge (Minutes): 35 Discharge Plan Discharge Patient Disposition: 06 Home Health Service Condition: Fair Prescriptions: Continued ipratropium-albuterol 3 ML solution for nebulization 3 ml PO Q4H PRN (Reason: Asthma) acetaminophen 325 MG tablet 650 mg PO Q4HR PRN (Reason: Pain Or Fever > 38c (100.4f)) 0RF fluticasone propionate 120 SPRAYS spray,suspension 1 spray intranasal BID Qty: 0 0RF montelukast 10 MG tablet 10 mg PO QPM Qty: 0 0RF Combivent Respimat 120 PUFFS mist 1 puff inhalation QID Qty: 0 0RF Rx Instructions: 1 puff four times daily bisacodyl 10 MG suppository 1 appful MD DAILY PRN (Reason: Constipation) metoprolol tartrate 25 MG tablet 50 mg PO TID naloxone 1 KIT spray,non-aerosol 1 spray IN DAILY PRN (Reason: As Needed Per Provider Orders) sennosides [Senna Lax] 8.6 MG tablet 8.6 mg PO BID PRN (Reason: Constipation) methocarbamol 500 mg tablet 500 mg PO Q6H PRN (Reason: muscle spasm) prednisone 10 mg tablet 10 mg PO DAILY albuterol sulfate 2.5 mg /3 mL (0.083 %) solution for nebulization 0.41 mg inhalation TID ondansetron HCl 4 mg tablet 4 mg PO Q6H PRN (Reason: nausea and vomiting) nystatin 100,000 unit/gram cream 1 applic TOPICAL TID PRN (Reason: rash) losartan 25 mg tablet 12.5 mg PO DAILY gabapentin 300 mg capsule 600 mg PO TID metoclopramide HCl 10 mg tablet 5 mg PO TID oxycodone 5 mg tablet 5 mg PO Q4H PRN (Reason: pain) Eliquis 5 mg tablet 5 mg PO BID Aki [place] 200-62.5-25 mcg blister with device 1 inh INHALATION DAILY melatonin 5 mg tablet 5 mg PO HS lidocaine 4 % adhesive patch,medicated 1 patch topical DAILY PRN (Reason: pain) ferrous sulfate 325 MG tablet 325 mg PO Q OTHER DAY Activity Restrictions: Activity as Tolerated Health Concerns: You came in because you were confused. You did tell us that you had ran out of your tube feeds at home, and you had switched to eating by mouth., Initially, there were concerns for aspiration, a.k.a. food going down the wrong way into your airways. Your chest x-ray showed some evidence of this. During your stay here, you became less and less confused. Your oxygen status has been normal, with you at your baseline 2 L of oxygen at home. You have not had any fevers, and we have monitored you off antibiotics for few days now. You did work with physical therapy, and they think that you are okay to go home with Home Health. This has been ordered for you. I understand that you do have your tube feeds at home now. It is very important that you do not eat anything by mouth, as there is a high likelihood that you may aspirate again. Please continue close follow-up with your primary care provider, as you will likely need further specialist care to determine the underlying reason for your difficulty swallowing. We are glad you are feeling better, thank you for allowing us to care of you. Print Language: [place] Irish Patient Instructions: Dysphagia Aspiration Stand Alone Forms: PCP List Follow-up Care: CLAYTON VILA PA [Primary Care Provider, Physician Pbx Inspector] Vitals documented within 30 minutes of discharge?: Yes"
[2025-07-21] MEDS ORDERED: IPRATROPIUM 0.2 MG/ML NEB INH PRN (11:41)
[2025-07-21 14:34] VITALS: BP 151/91; TEMP 97.9
[2025-07-21] MEDS ORDERED: IPRATROPIUM/ALBUTEROL 3 ML NEB INH SCH (15:00)
== END 2025-07-21 14:05 | disposition home health service (06) | DRG 189 ==
LOC: ED 03:42 → MS2 13:32
PROVIDERS: ADMIT Physician Assistant Medical; ATTEND Physician Assistant Medical
DX: L97.509 Non-pressure chronic ulcer of other part of unspecified foot with unspecified severity; J18.9 Pneumonia, unspecified organism; R79.89 Other specified abnormal findings of blood chemistry; G92.8 Other toxic encephalopathy; T40.2X5A Adverse effect of other opioids, initial encounter; J69.0 Pneumonitis due to inhalation of food and vomit; Z86.711 Personal history of pulmonary embolism; R00.0 Tachycardia, unspecified; F11.20 Opioid dependence, uncomplicated; G89.4 Chronic pain syndrome; J44.0 Chronic obstructive pulmonary disease with (acute) lower respiratory infection; J96.01 Acute respiratory failure with hypoxia; L89.152 Pressure ulcer of sacral region, stage 2; R53.83 Other fatigue; J44.1 Chronic obstructive pulmonary disease with (acute) exacerbation; Z79.01 Long term (current) use of anticoagulants; E11.51 Type 2 diabetes mellitus with diabetic peripheral angiopathy without gangrene; R41.0 Disorientation, unspecified; Z89.422 Acquired absence of other left toe(s); R13.10 Dysphagia, unspecified; Z68.1 Body mass index [BMI] 19.9 or less, adult; Z99.81 Dependence on supplemental oxygen; R62.7 Adult failure to thrive